=== PATIENT | female | born 1945 | race Caucasian/White ===

== ENCOUNTER 2016-09-25 08:25 | Outpatient (RCR) | payer BC ==
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
[2016-08-11 11:59] LABS: BASOPHILS % (AUTO) 0 % (0-10); EOSINOPHILS # (AUTO) 0.1 10^3/uL (0.0-0.3); EOSINOPHILS % (AUTO) 2 % (0-10); LYMPHOCYTES # (AUTO) 2.7 X 10^3 (1.0-4.0); LYMPHOCYTES % (AUTO) 36 % (12-44); MEAN CORPUSCULAR HEMOGLOBIN 28 PG (25-34); MEAN CORPUSCULAR HGB CONC 33 G/DL (32-36); MEAN CORPUSCULAR VOLUME 85 FL (80-99); MEAN PLATELET VOLUME 9.1 FL (7.4-10.4); MONOCYTES # (AUTO) 0.5 X 10^3 (0.0-1.0); MONOCYTES % (AUTO) 6 % (0-12); NEUTROPHILS # (AUTO) 4.2 X 10^3 (1.8-7.8); NEUTROPHILS % (AUTO) 55 % (42-75); PLATELET COUNT 322 10^3/uL (130-400); RED BLOOD COUNT 4.92 10^6/uL (4.35-5.85); RED CELL DISTRIBUTION WIDTH 14.2 % (10.0-14.5); WHITE BLOOD COUNT 7.5 10^3/uL (4.3-11.0)
[2016-08-11 12:23] LABS: ALANINE AMINOTRANSFERASE 21 U/L (0-55); ALBUMIN 4.1 G/DL (3.2-4.5); ANION GAP 7 MMOL/L (5-14); ASPARTATE AMINO TRANSFERASE 17 U/L (5-34); BILIRUBIN,TOTAL 0.5 MG/DL (0.1-1.0); BLOOD UREA NITROGEN 16 MG/DL (7-18); BUN/CREATININE RATIO 23; CALCIUM 9.7 MG/DL (8.5-10.1); CARBON DIOXIDE 28 MMOL/L (21-32); CHLORIDE 104 MMOL/L (98-107); CREATININE SERUM 0.71 MG/DL (0.60-1.30); GFR ESTIMATED > 60; GLUCOSE 95 MG/DL (70-105); POTASSIUM 3.8 MMOL/L (3.6-5.0); SODIUM 139 MMOL/L (135-145); TOTAL PROTEIN 6.8 G/DL (6.4-8.2)
[2016-08-11 12:42] LABS: THYROID STIMULATING HORMONE 0.67 UIU/ML (0.35-4.94)
[2016-08-13 10:51] LABS: THYROGLOBULIN LEVELC 0.35 ng/mL (1.60-59.90)
[2016-08-15 07:59] LABS: THYROGLOBULIN AUTOANTIBODY PT 0.05 Units (0.00-0.50)
[~2016-09-25 08:25] MED LIST: CALC-694 PO; CLD600T; ENAL10TA PO; ENAL1TAB16 PO; ESTR0.5T PO; ESTR0.5T3 PO; Estrace; HYDR-3454 PO; HYDR-3729 PO; HYDR12.56 PO; LEVE500T6 PO; LEVE500T99 PO; LEVO100T7 PO; MULT-35 PO; MULT1TAB63; VERA240T98 PO; VITA150T PO; VRP240TCR PO
== END 2016-11-09 | disposition home or self-care (01) ==
LOC: ONC 08:25
PROVIDERS: ATTEND Internal Medicine Hematology & Oncology
DX: C73 Malignant neoplasm of thyroid gland (principal); I10 Essential (primary) hypertension; Z79.899 Other long term (current) drug therapy
CPT/HCPCS: 36415; 80053; 84432; 84443; 85025; 86800; 99214

== ENCOUNTER → 2016-10-16 | Outpatient (CLI) | payer BC ==
--- OUTSIDE RECORDS SUMMARY | 2016-10-16 15:39 | XMS REPORT | Continuity of Care Document ---
Author Author [facility] Organization [facility] Address Unknown Phone Unavailable Care Team Providers Care Pathology Secretary/Transcriptionist Name Role Phone OZZY SULLIVAN MD PCP Insurance Providers Payer Name Policy Number Subscriber Name [id number] [employer] [place] 18 Self / Same As Patient Advance Directives Directive Response Recorded Date/Time Advance Directives Yes 02/03/16 12:03pm Health Care Power of Director Of Scout Work No 02/03/16 12:03pm Organ Donor Yes 02/03/16 [...] - 99.5) 01/12/2016 12:42pm Temperature (Calculated Celsius) 36.07994 degrees C (36.4 - 37.5) 01/12/2016 12:42pm [...] 1.00 inches 02/03/2016 12:03pm Height (Calculated Centimeters) 154.891784 cm 02/03/2016 12:03pm Weight (Pounds) 207 pounds 02/03/2016 12:03pm Weight (Ounces) 0.0 oz 02/03/2016 12:03pm Weight (Calculated Grams) 67000.622 gm 02/03/2016 12:03pm Weight (Calculated Kilograms) 93.814449 kilograms 02/03/2016 12:03pm Calculated BMI 34.44 02/03/2016 12:03pm Results Pending Laboratory Results Test Name Collection Date/Time Pending Microbiology Results Procedure Source Collection Date/Time Procedures Procedure Status Date Provider(s) BIOPSY OF THYROID Completed 01/12/16 JANNA JAMIL MD Encounters Encounter Location Arrival/Admit Date Discharge/Depart Date Attending Provider Departed Clinic [facility] 02/04/16 8:58pm 02/05/16 4: 45am TRINO MONREAL Departed Clinic [facility] 02/03/16 11:49am 02/03/16 12: 25pm JUAN MOYA MD Registered Clinic [facility] 01/12/16 12:08pm JUAN MOYA MD
--- NOTE | 2016-10-18 19:18 | Diagnostic Imaging Report ---
Bilateral screening mammogram The current study was also evaluated with a Computer Aided Detection (CAD) system. Indication: Screening. No current complaints stated on the questionnaire. COMPARISON: 10/15/15. FINDINGS: There are scattered fibroglandular densities in both breasts. There is bilateral nodularity in the parenchyma noted similar to prior exams with no new mass, architectural distortion or suspicious cluster of calcification. Benign-appearing calcifications are seen. There is a biopsy clip in the left breast without change. Allowing for technique and positional differences, no suspicious change is seen. IMPRESSION: No significant change. ACR BI-RADS Category 2: Benign findings. Result letter will be mailed to the patient. Note: At least 10% of breast cancer is not imaged by mammography. Dictated by: Dictated on workstation # [id number]
== END ==
LOC: RAD 15:36
PROVIDERS: ATTEND Internal Medicine
DX: Z12.31 Encounter for screening mammogram for malignant neoplasm of breast (principal)
CPT/HCPCS: 77067

== ENCOUNTER → 2016-10-22 | Outpatient (CLI) | payer BC ==
--- OUTSIDE RECORDS SUMMARY | 2016-10-22 14:22 | XMS REPORT | Continuity of Care Document ---
Author Author [facility] Organization [facility] Address Unknown Phone Unavailable Care Team Providers Care Hand Paint Mixer Name Role Phone OZZY SULLIVAN MD PCP Insurance Providers Payer Name Policy Number Subscriber Name [id number] [place] 18 Self / Same As Patient Advance Directives Directive Response Recorded Date/Time Advance Directives Yes 02/03/16 12:03pm Health Care Power of Airframe And Powerplant Mechanic No 02/03/16 12:03pm Organ Donor Yes 02/03/16 [...] - 99.5) 01/12/2016 12:42pm Temperature (Calculated Celsius) 36.93464 degrees C (36.4 - 37.5) 01/12/2016 12:42pm [...] 1.00 inches 02/03/2016 12:03pm Height (Calculated Centimeters) 154.811980 cm 02/03/2016 12:03pm Weight (Pounds) 207 pounds 02/03/2016 12:03pm Weight (Ounces) 0.0 oz 02/03/2016 12:03pm Weight (Calculated Grams) 59458.622 gm 02/03/2016 12:03pm Weight (Calculated Kilograms) 93.925356 kilograms 02/03/2016 12:03pm Calculated BMI 34.44 02/03/2016 12:03pm Results Pending Laboratory Results Test Name Collection Date/Time Pending Microbiology Results Procedure Source Collection Date/Time Procedures Procedure Status Date Provider(s) BIOPSY OF THYROID Completed 01/12/16 JANNA JAMIL MD Encounters Encounter Location Arrival/Admit Date Discharge/Depart Date Attending Provider Departed Clinic [facility] 02/04/16 8:58pm 02/05/16 4: 45am TRINO MONREAL Departed Clinic [facility] 02/03/16 11:49am 02/03/16 12: 25pm JUAN MOYA MD Registered Clinic [facility] 01/12/16 12:08pm JUAN MYOA MD
--- NOTE | 2016-10-22 15:18 | Diagnostic Imaging Report ---
EXAM: WRIST, LEFT, 3 VIEWS OR MORE INDICATION: LEFT WRIST INJURY. COMPARISON: None. FINDINGS: No fracture or malalignment. Soft tissue shadows are unremarkable. IMPRESSION: Negative left wrist radiographs. Dictated by: Dictated on workstation # [id number]
== END ==
LOC: RAD 14:19
PROVIDERS: ATTEND Nurse Practitioner Family
DX: S69.92XA Unspecified injury of left wrist, hand and finger(s), initial encounter (principal); X58.XXXA Exposure to other specified factors, initial encounter; Y99.8 Other external cause status
CPT/HCPCS: 73110

== ENCOUNTER 2017-02-08 09:51 | Outpatient (RCR) | payer BC ==
[2017-01-29 15:51] LABS: BASOPHILS % (AUTO) 0 % (0-10); EOSINOPHILS # (AUTO) 0.2 10^3/uL (0.0-0.3); EOSINOPHILS % (AUTO) 2 % (0-10); LYMPHOCYTES # (AUTO) 2.8 X 10^3 (1.0-4.0); LYMPHOCYTES % (AUTO) 38 % (12-44); MEAN CORPUSCULAR HEMOGLOBIN 28 PG (25-34); MEAN CORPUSCULAR HGB CONC 33 G/DL (32-36); MEAN CORPUSCULAR VOLUME 85 FL (80-99); MEAN PLATELET VOLUME 9.3 FL (7.4-10.4); MONOCYTES # (AUTO) 0.5 X 10^3 (0.0-1.0); MONOCYTES % (AUTO) 6 % (0-12); NEUTROPHILS # (AUTO) 3.8 X 10^3 (1.8-7.8); NEUTROPHILS % (AUTO) 53 % (42-75); PLATELET COUNT 291 10^3/uL (130-400); RED BLOOD COUNT 4.91 10^6/uL (4.35-5.85); RED CELL DISTRIBUTION WIDTH 14.4 % (10.0-14.5); WHITE BLOOD COUNT 7.2 10^3/uL (4.3-11.0)
[2017-01-29 16:14] LABS: ALANINE AMINOTRANSFERASE 20 U/L (0-55); ALBUMIN 3.9 G/DL (3.2-4.5); ANION GAP 8 MMOL/L (5-14); ASPARTATE AMINO TRANSFERASE 17 U/L (5-34); BILIRUBIN,TOTAL 0.3 MG/DL (0.1-1.0); BLOOD UREA NITROGEN 16 MG/DL (7-18); BUN/CREATININE RATIO 20; CALCIUM 9.2 MG/DL (8.5-10.1); CARBON DIOXIDE 30 MMOL/L (21-32); CHLORIDE 104 MMOL/L (98-107); CREATININE SERUM 0.79 MG/DL (0.60-1.30); GFR ESTIMATED > 60; GLUCOSE 88 MG/DL (70-105); POTASSIUM 3.5 MMOL/L (3.6-5.0); SODIUM 142 MMOL/L (135-145); TOTAL PROTEIN 6.7 G/DL (6.4-8.2)
[2017-01-30 08:01] LABS: THYROGLOBULIN LEVELC 0.2 ng/mL (1.60-59.90)
[2017-01-30 13:40] LABS: THYROGLOBULIN AUTOANTIBODY PT 0.05 Units (0.00-0.50)
== END 2017-04-29 | disposition home or self-care (01) ==
LOC: ONC 09:51
PROVIDERS: ATTEND Internal Medicine Hematology & Oncology
DX: C73 Malignant neoplasm of thyroid gland (principal); I10 Essential (primary) hypertension; Z79.899 Other long term (current) drug therapy
CPT/HCPCS: 36415; 80053; 84432; 84443; 85025; 86800; 99213

== ENCOUNTER 2017-08-16 08:41 | Outpatient (RCR) | payer MEDICARE, OTHER ==
[2017-08-09 08:45] LABS: BASOPHILS % (AUTO) 1 % (0-10); EOSINOPHILS # (AUTO) 0.1 10^3/uL (0.0-0.3); EOSINOPHILS % (AUTO) 2 % (0-10); HEMATOCRIT 42 % (35-52); HEMOGLOBIN 13.9 G/DL (11.5-16.0); LYMPHOCYTES # (AUTO) 2.1 X 10^3 (1.0-4.0); LYMPHOCYTES % (AUTO) 37 % (12-44); MEAN CORPUSCULAR HEMOGLOBIN 28 PG (25-34); MEAN CORPUSCULAR HGB CONC 33 G/DL (32-36); MEAN CORPUSCULAR VOLUME 86 FL (80-99); MEAN PLATELET VOLUME 9.1 FL (7.4-10.4); MONOCYTES # (AUTO) 0.3 X 10^3 (0.0-1.0); MONOCYTES % (AUTO) 5 % (0-12); NEUTROPHILS # (AUTO) 3.2 X 10^3 (1.8-7.8); NEUTROPHILS % (AUTO) 56 % (42-75); PLATELET COUNT 327 10^3/uL (130-400); RED CELL DISTRIBUTION WIDTH 14.3 % (10.0-14.5); WHITE BLOOD COUNT 5.7 10^3/uL (4.3-11.0)
[2017-08-09 09:03] LABS: ALANINE AMINOTRANSFERASE 51 U/L (0-55); ALBUMIN 3.8 GM/DL (3.2-4.5); ALKALINE PHOSPHATASE 47 U/L (40-136); BILIRUBIN,TOTAL 0.6 MG/DL (0.1-1.0); BUN/CREATININE RATIO 16; CALCIUM 9.1 MG/DL (8.5-10.1); CARBON DIOXIDE 29 MMOL/L (21-32); CHLORIDE 103 MMOL/L (98-107); CREATININE SERUM 0.79 MG/DL (0.60-1.30); GFR ESTIMATED > 60; GLUCOSE 102 MG/DL (70-105); POTASSIUM 3.3 MMOL/L (3.6-5.0); SODIUM 141 MMOL/L (135-145); TOTAL PROTEIN 6.4 GM/DL (6.4-8.2)
== END 2017-11-07 | disposition home or self-care (01) ==
LOC: ONC 08:41
PROVIDERS: ATTEND Internal Medicine Hematology & Oncology
DX: C73 Malignant neoplasm of thyroid gland (principal); I10 Essential (primary) hypertension; Z79.899 Other long term (current) drug therapy
CPT/HCPCS: 36415; 80053; 84432; 84443; 85025; 86800; 99213

== ENCOUNTER → 2017-10-18 | Outpatient (CLI) | payer MEDICARE, OTHER ==
--- NOTE | 2017-10-18 18:11 | Diagnostic Imaging Report ---
INDICATION: Screening mammogram. COMPARISON: 10/16/2016. EXAMINATION: Digital screening mammography was obtained of bilateral breasts with a Computer Aided Detection (CAD) system and three-dimensional tomosynthesis. FINDINGS: Scattered fibroglandular densities are again seen. Stable tiny microcalcifications are seen in the 3 o'clock position of the left breast. There is a biopsy marker clip present. There has been no interval change. IMPRESSION: Stable screening mammogram. No malignancy. ACR BI-RADS Category 1: Negative. Result letter will be mailed to the patient. Note: At least 10% of breast cancer is not imaged by mammography. Dictated by: Dictated on workstation # [id number]
== END ==
LOC: RAD 07:31
PROVIDERS: ATTEND Internal Medicine
DX: Z12.31 Encounter for screening mammogram for malignant neoplasm of breast (principal)
CPT/HCPCS: 77067

== ENCOUNTER → 2017-10-18 | Outpatient (CLI) | payer MEDICARE, OTHER ==
--- NOTE | 2017-10-18 10:13 | Diagnostic Imaging Report ---
INDICATION: Cough COMPARISON: 05/24/16 FINDINGS: Frontal and lateral views of the chest demonstrate large mass density in the right hemithorax. The left lung is clear. The heart is prominent without pulmonary edema. There is no pneumothorax or large effusion. IMPRESSION: Large mass density right hemithorax. Recommend CT imaging. Dictated by: Dictated on workstation # [id number]
== END ==
LOC: RAD 09:42
PROVIDERS: ATTEND Nurse Practitioner
DX: R05 Cough (principal); R22.2 Localized swelling, mass and lump, trunk
CPT/HCPCS: 71046

== ENCOUNTER → 2017-10-22 | Outpatient (CLI) | payer MEDICARE, OTHER ==
[~2017-10-22] MED LIST changes: +CATHETER FLUSH 10 ML SYR IV PRN; +IOHEXOL 350 MG/ML 100 ML (OMNIPAQUE 350) VIAL IV ONE; +NS 250 ML (IVPB) BAG IV ONE; +RECEIVED CONTRAST (Hold Metformin) IV SCH
[2017-10-22 15:28] LABS: BUN/CREATININE RATIO 24; CREATININE SERUM 0.89 MG/DL (0.60-1.30); GFR ESTIMATED > 60
--- NOTE | 2017-10-22 17:47 | Diagnostic Imaging Report ---
PROCEDURE: CT chest with and without contrast. TECHNIQUE: Multiple contiguous axial images were obtained through the chest before and after administration of intravenous contrast. INDICATION: Abnormal chest x-ray, mass. COMPARISON: Chest radiographs 05/24/2016, 10/18/2017. FINDINGS: There is a large mildly enhancing mass in the right posterior pleural space extending into the posterior mediastinum which in total measures approximately 13.7 x 12.0 x 14.7 cm (LR x AP x SI). There is small area of calcifications along the superior margin of this mass. This results in marked atelectasis of the right lower lobe. This displaces the esophagus towards the left and appears to have some mass effect upon the left atrium. The fat plane between this mass and the adjacent spine appears preserved. There is no mediastinal lymphadenopathy. There are no aggressive changes in the adjacent ribs or thoracic spine. Postoperative findings in the thyroid bed. Vertebroplasty changes in the L1 vertebral body. Cholecystectomy. IMPRESSION: Indeterminate large mass 14.7 cm involving the posterior pleural space on the right and posterior mediastinum. This has developed since the 05/22/2016 examination. This mass would be readily accessible to CT or ultrasound-guided biopsy. Dictated on workstation # [id number]
== END ==
LOC: RAD 14:54
PROVIDERS: ATTEND Nurse Practitioner
DX: R91.8 Other nonspecific abnormal finding of lung field (principal); R05 Cough
CPT/HCPCS: 36415; 71270; 82565; 84520

== ENCOUNTER 2017-11-08 16:29 | Emergency (ER) | payer MEDICARE, OTHER ==
[~2017-11-08] VITALS: Ht 162.6 cm; Wt 90.7 kg
[~2017-11-08 16:29] MED LIST changes: -CATHETER FLUSH 10 ML SYR IV PRN; -IOHEXOL 350 MG/ML 100 ML (OMNIPAQUE 350) VIAL IV ONE; -NS 250 ML (IVPB) BAG IV ONE; -RECEIVED CONTRAST (Hold Metformin) IV SCH
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
[2017-11-08] MEDS ORDERED: RT-ALBUTEROL/IPRATROPIUM 3 ML (DUONEB) VIAL INH ONE (16:45)
[2017-11-08 16:59] LABS: BASOPHILS % (AUTO) 0 % (0-10); EOSINOPHILS # (AUTO) 0.1 10^3/uL (0.0-0.3); EOSINOPHILS % (AUTO) 1 % (0-10); HEMATOCRIT 40 % (35-52); LYMPHOCYTES # (AUTO) 1.8 X 10^3 (1.0-4.0); LYMPHOCYTES % (AUTO) 22 % (12-44); MEAN CORPUSCULAR HEMOGLOBIN 28 PG (25-34); MEAN CORPUSCULAR HGB CONC 33 G/DL (32-36); MEAN CORPUSCULAR VOLUME 85 FL (80-99); MEAN PLATELET VOLUME 9.2 FL (7.4-10.4); MONOCYTES # (AUTO) 0.5 X 10^3 (0.0-1.0); MONOCYTES % (AUTO) 6 % (0-12); NEUTROPHILS % (AUTO) 71 % (42-75); PLATELET COUNT 361 10^3/uL (130-400); RED BLOOD COUNT 4.67 10^6/uL (4.35-5.85); RED CELL DISTRIBUTION WIDTH 14.6 % (10.0-14.5); WHITE BLOOD COUNT 8.5 10^3/uL (4.3-11.0)
--- NOTE | 2017-11-08 17:19 | Diagnostic Imaging Report ---
INDICATION: Shortness of breath. COMPARISON STUDY: Chest from October 26. FINDINGS: A large mass is again seen in the right lower chest. This is better visualized on the CT scan. Adjacent atelectasis has increased. Left lung remains clear. The heart and vascularity are normal. There is no pneumothorax. IMPRESSION: Large right lung mass is stable with increasing adjacent atelectasis. Left lung is clear. Dictated by: Dictated on workstation # [id number]
[2017-11-08 17:21] LABS: ALANINE AMINOTRANSFERASE 38 U/L (0-55); ALBUMIN 3.9 GM/DL (3.2-4.5); ALKALINE PHOSPHATASE 51 U/L (40-136); BILIRUBIN,TOTAL 0.9 MG/DL (0.1-1.0); BUN/CREATININE RATIO 16; CALCIUM 9.1 MG/DL (8.5-10.1); CARBON DIOXIDE 22 MMOL/L (21-32); CHLORIDE 102 MMOL/L (98-107); CREATININE SERUM 0.76 MG/DL (0.60-1.30); GFR ESTIMATED > 60; GLUCOSE 111 MG/DL (70-105); POTASSIUM 3.9 MMOL/L (3.6-5.0); SODIUM 138 MMOL/L (135-145); TOTAL PROTEIN 6.8 GM/DL (6.4-8.2)
--- NOTE | 2017-11-08 17:22 | ED Dyspnea ---
General Stated Complaint: SOB Source of Information: Patient Exam Limitations: No Limitations (ABRAHAN BERMUDEZ MD) History of Present Illness Date Seen by Provider: Nov 08, 2017 Time Seen by Provider: 17:19 Initial Comments The patient is a 72-year-old white female who presents today with complaints of increasing shortness of breath. She relates that a lung mass was discovered and she underwent a percutaneous CT-guided needle biopsy on 10/26. She states that she has been informed that it is malignant however it required more special stains for clear definition. 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 This was submitted for outside review to the [facility] Department of pathology in [place]. She reports that she has had a cough and been short of breath and in fact increasingly short of breath since that biopsy Timing/Duration: Other (2 weeks) (ABRAHAN BERMUDEZ MD) Allergies and Home Medications Allergies Coded Allergies: meperidine (Verified Allergy, Unknown, RECEIVED FENTANYL IN SURGERY, ) PT STATES "DEMEROL MAKES ME DIZZY AND TURNS ME ANDERSON" Uncoded Allergies: TAPE (Allergy, Unknown, 01/18/07) Home Medications Calcium Carbonate/Vitamin D3 1 Each Tablet, 1 TAB PO DAILY, (Reported) Enalapril Maleate 10 Mg Tablet, 10 MG PO DAILY, (Reported) Estradiol 0.5 Mg Tablet, 0.5 MG PO DAILY, (Reported) Hydrochlorothiazide 12.5 Mg Tablet, 12.5 MG PO DAILY, (Reported) Hydrocodone/Acetaminophen 1 Each Tablet, 1 EACH PO Q4H PRN for PAIN Prescribed by: JUAN MOYA on 02/09/161815 Levetiracetam 500 Mg Tablet, 500 MG PO BID, (Reported) Levothyroxine Sodium 100 Mcg Tablet, 100 MCG PO DAILY Prescribed by: JUAN MOYA on 02/09/161816 Multivitamin 1 Each Tablet, 1 TAB PO DAILY, (Reported) Verapamil HCl 240 Mg Tablet.er, 240 MG PO DAILY, (Reported) Vitamin B Complex & Vit C No.4 150 Mg Tablet, 150 MG PO DAILY, (Reported) Patient Home Medication List Home Medication List Reviewed: Yes (AILIN BARNEY) Constitutional: see HPI EENTM: no symptoms reported Respiratory: see HPI, cough, dyspnea on exertion, short of breath Cardiovascular: no symptoms reported Gastrointestinal: no symptoms reported Genitourinary: no symptoms reported Skin: no symptoms reported Psychiatric/Neurological: No Symptoms Reported (ABRAHAN BERMUDEZ MD) Past Lneepik-Wsflbc-Qqhhih Hx Patient Social History 2nd Hand Smoke Exposure: No Recent Foreign Travel: No Contact w/Someone Who Travel: No Recent Hopitalizations: Yes (ABRAHAN BERMUDEZ MD) Immunizations Up To Date Date of Influenza Vaccine: Jun 10, 2015 (ABRAHAN BERMUDEZ MD) Respiratory Respiratory Disorders: Tuberculosis Currently Using CPAP: No Currently Using BIPAP: No (ABRAHAN BERMUDEZ MD) Reproductive System Hx Reproductive Disorders: No (ABRAHAN BERMUDEZ MD) Musculoskeletal Musculoskeletal Disorders: Arthritis, Chronic Back Pain (ABRAHAN BERMUDEZ MD) Family Medical History Significant Family History: Cancer Family Medial History: Arthritis G8 SISTER Kidney disease G8 SISTER Neoplasm 19 FATHER (lung/colon/ liver ca) 19 MOTHER (leukemia) (ABRAHAN BERMUDEZ MD) Family Medial History: Arthritis G8 SISTER Kidney disease G8 SISTER Neoplasm 19 FATHER (lung/colon/ liver ca) 19 MOTHER (leukemia) (AILIN BARNEY) Physical Exam Vital Signs Vital Signs - First Documented 11/08/17 16:35 Temp 98.4 Pulse 75 Resp 16 B/P (MAP) 198/90 (126) Pulse Ox 93 O2 Delivery Nasal Cannula O2 Flow Rate 2.00 (AILIN BARNEY) Vital Signs Capillary Refill : (ABRAHAN BERMUDEZ MD) General Appearance: No Apparent Distress, Other (mild tachypnea at rest) HEENT: Normal ENT Inspection Neck: Normal Inspection Respiratory: Decreased Breath Sounds (distant without wheezes) Cardiovascular: Regular Rate, Rhythm, No Edema, No Gallop, No JVD, No Murmur, Normal Peripheral Pulses Gastrointestinal: Normal Bowel Sounds, No Organomegaly, No Pulsatile Mass, Non Tender Extremity: Normal Capillary Refill, Normal Inspection, Normal Range of Motion, Non Tender, No Calf Tenderness, No Pedal Edema Neurologic/Psychiatric: Alert, Oriented x3, No Motor/Sensory Deficits, Normal Mood/Affect Skin: Normal Color, Warm/Dry Lymphatic: No Adenopathy (ABRAHAN BERMUDEZ MD) Focused Exam Time of Focused Exam: 21:31 Respiratory: Chest Non Tender, No Accessory Muscle Use, Decreased Breath Sounds , Respiratory Distress (mild rest for distress with exertion but at rest she is comfortable and 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.) Cardiovascular: Regular Rate, Rhythm, Normal Peripheral Pulses Capillary Refill: Less Than 3 Seconds Peripheral Pulses: 2+ Radial Pulses (R), 2+ Radial Pulses (L) Skin: normal color, warm/dry (ECTOR,AILIN J) Progress/Results/Core Measures Results/Orders Lab Results Laboratory Tests Test 11/08/17 16:46 11/08/17 18:14 11/08/17 20:15 Range/Units White Blood Count 8.5 4.3-11.0 10^3/uL Red Blood Count 4.67 4.35-5.85 10^6/uL Hemoglobin 13.0 11.5-16.0 G/DL Hematocrit 40 35-52 % Mean Corpuscular Volume 85 80-99 FL Mean Corpuscular Hemoglobin 28 25-34 PG Mean Corpuscular Hemoglobin Concent 33 32-36 G/DL Red Cell Distribution Width 14.6 H 10.0-14.5 % Platelet Count 361 130-400 10^3/uL Mean Platelet Volume 9.2 7.4-10.4 FL Neutrophils (%) (Auto) 71 42-75 % Lymphocytes (%) (Auto) 22 12-44 % Monocytes (%) (Auto) 6 0-12 % Eosinophils (%) (Auto) 1 0-10 % Basophils (%) (Auto) 0 0-10 % Neutrophils # (Auto) 6.0 1.8-7.8 X 10^3 Lymphocytes # (Auto) 1.8 1.0-4.0 X 10^3 Monocytes # (Auto) 0.5 0.0-1.0 X 10^3 Eosinophils # (Auto) 0.1 0.0-0.3 10^3/uL Basophils # (Auto) 0.0 0.0-0.1 10^3/uL Sodium Level 138 135-145 MMOL/L Potassium Level 3.9 3.6-5.0 MMOL/L Chloride Level 102 98-107 MMOL/L Carbon Dioxide Level 22 21-32 MMOL/L Anion Gap 14 5-14 MMOL/L Blood Urea Nitrogen 12 7-18 MG/DL Creatinine 0.76 0.60-1.30 MG/DL Estimat Glomerular Filtration Rate > 60 BUN/Creatinine Ratio 16 Glucose Level 111 H 70-105 MG/DL Calcium Level 9.1 8.5-10.1 MG/DL Total Bilirubin 0.9 0.1-1.0 MG/DL Aspartate Amino Transf (AST/SGOT) 22 5-34 U/L Alanine Aminotransferase (ALT/SGPT) 38 0-55 U/L Alkaline Phosphatase 51 40-136 U/L C-Reactive Protein High Sensitivity 4.17 H 0.00-0.50 MG/DL Total Protein 6.8 6.4-8.2 GM/DL Albumin 3.9 3.2-4.5 GM/DL Urine Color YELLOW Urine Clarity CLEAR Urine pH 5 5-9 Urine Specific [place] 1.020 1.016-1.022 Urine Protein NEGATIVE NEGATIVE Urine Glucose (UA) NEGATIVE NEGATIVE Urine Ketones 3+ H NEGATIVE Urine Nitrite NEGATIVE NEGATIVE Urine Bilirubin NEGATIVE NEGATIVE Urine Urobilinogen NORMAL NORMAL MG/DL Urine Leukocyte Esterase 1+ H NEGATIVE Urine RBC (Auto) NEGATIVE NEGATIVE Urine RBC NONE /HPF Urine WBC 2-5 /HPF Urine Squamous Epithelial Cells 2-5 /HPF Urine Crystals NONE /LPF Urine Bacteria TRACE /HPF Urine Casts NONE /LPF Urine Mucus SMALL H /LPF Urine Culture Indicated NO Blood Gas Puncture Site LT RAD Blood Gas Patient Temperature 99.1 Arterial Blood pH 7.42 7.37-7.43 Arterial Blood Partial Pressure CO2 42 35-45 MMHG Arterial Blood Partial Pressure O2 66 L 79-93 MMHG Arterial Blood HCO3 27 23-27 MMOL/L Arterial Blood Total CO2 27.9 21.0-31.0 MMOL/L Arterial Blood Oxygen Saturation 95 94-100 % Arterial Blood Base Excess 2.5 -2.5-2.5 MMOL/L Sahil Test YES-POS Blood Gas Ventilator Setting NO Blood Gas Inspired Oxygen 2L (AILIN BARNEY) My Orders Orders - AILIN BARNEY Hs C Reactive Protein (11/08/17 18:30) Arterial Blood Gas (11/08/17 20:19) General/Regular (11/08/17 Dinner) (AILIN BARNEY) Medications Given in ED Current Medications Medications Dose Ordered Sig/Tricia Route Start Time Stop Time Status Last Admin Dose Admin Albuterol/ Ipratropium 3 ml ONCE ONCE INH 11/08/17 16:45 11/08/17 16:46 DC 11/08/17 16:47 3 ML (AILIN BARNEY) Vital Signs/I&O Vital Sign - Last 12Hours 11/08/17 11/08/17 11/08/17 16:35 16:47 22:02 Temp 98.4 Pulse 75 88 Resp 16 20 B/P (MAP) 198/90 (126) 123/81 Pulse Ox 93 94 95 O2 Delivery Nasal Cannula Nasal Cannula O2 Flow Rate 2.00 2.00 (AILIN BARNEY) Progress Note : Time: 18:20 Progress Note Met with and obtained the history of and examined the patient and agree with the findings of Dr. Bermudez. Reviewed the CT scan from October 22, 2017 demonstrating a 13 x 12 x 14 cm posterior mediastinal mass. 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 Added a CRP to help us differentiate between an possibility of a postobstructive pneumonia versus mass effect causing her shortness of breath. She is satting from 88-91% on 2 L by nasal cannula just from transferring from the wheelchair to bed. She is actively working harder to breathe. She does wear CPAP at home but does not use oxygen routinely. (AILIN BARNEY) Diagnostic Imaging Diagonstic Imaging: Xray Plain Films/CT/US/NM/MRI: chest Comments VIA [facility]. [place], [place] NAME: JONATHON FONTENOT [facility] REC#: [id number] PT STATUS: REG ER : 1945 PHYSICIAN: DIPIKA SON APRN ADMIT DATE: 11/08/17/ER Draft Date of Exam:11/08/17 CHEST 1 VIEW, AP/PA ONLY INDICATION: Shortness of breath. COMPARISON STUDY: Chest from October 26. FINDINGS: A large mass is again seen in the right lower chest. This is better visualized on the CT scan. Adjacent atelectasis has increased. Left lung remains clear. The heart and vascularity are normal. There is no pneumothorax. IMPRESSION: Large right lung mass is stable with increasing adjacent atelectasis. Left lung is clear. Dictated on workstation # [id number] Dict: 11/08/17 1713 Trans: 11/08/17 1719 [id number] Interpreted by: DEBBIE MARCANO MD Electronically signed by: Reviewed: Reviewed by Me Diagonstic Imaging: CT Plain Films/CT/US/NM/MRI: chest Comments Discussed the very modest fluid collection and the radiologist thinks he might get up to 3 or 400 cc output probably will not make a significant change in her symptoms as the majority of the opacification is from lung mass itself. [facility]. [place], [place] NAME: JONATHON FONTENOT [facility] REC#: [id number] PT STATUS: REG ER : 1945 PHYSICIAN: ABRAHAN BERMUDEZ MD ADMIT DATE: 11/08/17/ER Draft Date of Exam:11/08/17 CT CHEST WO INDICATION: Dry cough with shortness of air since biopsy on October 22. FINDINGS: A large mass in the right pleural space is again identified. There is some increased ascites in the right pleural space. No pericardial effusion or left pleural effusion is present. Atelectasis at the right base is slightly worsened. No other masses are present. No abnormal adenopathy is seen. Heart size is normal. Visualized portions of the abdomen appear unremarkable. IMPRESSION: Stable large right chest mass with mild increase of the ascites and atelectasis. Left lung remains clear. Dictated on workstation # [id number] Dict: 11/08/17 1830 Trans: 11/08/[address] [facility] [id number] Interpreted by: DEBBIE MARCANO MD Electronically signed by: Reviewed: Reviewed by Me, Discussed w/Radiologist (AILIN BARNEY) Consults Consults #1: Consulting Physician: JAI MARRUFO Consults Notes Mode patient is not currently under the good Dr. Durand care he would recommend since we don't have the pathology from the [facility] back yet we should keep her here for the hypoxia potentially consult Dr. Quintero to get the results of the pathology and then from there if she needs CT surgery at transfer to appropriate facility would be done from an inpatient standpoint. 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 She recommends looking at [facility]. (AILIN BARNEY) Transfer of Care Transfer of Care Time: 18:15 Care transferred to: ECTOR (AILIN BARNEY) Departure Impression Impression: Primary Impression: Hypoxia Additional Impressions: Mass of lung Pleural effusion due to another disorder Disposition: ADMITTED INPATIENT Condition: Improved Admissions Decision to Admit Reason: Admit from ER (General) Decision to Admit/Date: Nov 08, 2017 Time/Decision to Admit Time: 19:12 (AILIN BARNEY) Transfer Time Spoke to Accepting Phy: 20:00 Transfer Progress Notes Bobby 1920: Triage coordinator for [facility]. Triage nurse: Janelle Rodrigues, internal medicine will be accepting but would like an ABG report called back prior to getting a bed number. 29/09/29 ABG results called back. We have a bed number already and [facility] is out on a transfer and is expected to be here in about 30 minutes. Transfer Time: 22:02 Transfer Facility: [facility] Method of Transfer: EMS (AILIN BARNEY) Departure-Patient Inst. Referrals: SUMANTH ZHAO MD (PCP/Family) Primary Care Physician ABRAHAN BERMUDEZ MD Nov 08, 2017 17:22 AILIN BARNEY Nov 08, 2017 18:21
[2017-11-08 18:25] LABS: BILIRUBIN,URINE NEGATIVE (NEGATIVE); CLARITY,URINE CLEAR; COLOR,URINE YELLOW; GLUCOSE, URINE (UA) NEGATIVE (NEGATIVE); KETONES,URINE 3+ (NEGATIVE); LEUKOCYTE ESTERASE ,URINE 1+ (NEGATIVE); NITRITE,URINE NEGATIVE (NEGATIVE); PH,URINE 5 (5-9); PROTEIN,URINE NEGATIVE (NEGATIVE); UROBILINOGEN,URINE NORMAL (NORMAL)
[2017-11-08 18:34] LABS: BACTERIA,URINE TRACE /HPF
--- NOTE | 2017-11-08 18:39 | Diagnostic Imaging Report ---
INDICATION: Dry cough with shortness of air since biopsy on October 22. FINDINGS: A large mass in the right pleural space is again identified. There is some increased ascites in the right pleural space. No pericardial effusion or left pleural effusion is present. Atelectasis at the right base is slightly worsened. No other masses are present. No abnormal adenopathy is seen. Heart size is normal. Visualized portions of the abdomen appear unremarkable. IMPRESSION: Stable large right chest mass with mild increase of the ascites and atelectasis. Left lung remains clear. Dictated by: Dictated on workstation # [id number]
[2017-11-08 20:25] LABS: ABG BASE EXCESS 2.5 MMOL/L (-2.5-2.5); ABG OXYGEN SATURATION 95 % (94-100); ABG PCO2 42 MMHG (35-45); ABG PH 7.42 (7.37-7.43); ABG PO2 66 MMHG (79-93); ABG TCO2 27.9 MMOL/L (21.0-31.0)
[2017-11-08 20:26] LABS: ALLENS TEST YES-POS; INSPIRED O2 2L; PATIENT TEMP 99.1; VENTILATOR NO
[2017-11-08 22:02] VITALS: BP 123/81
== END 2017-11-08 22:02 | disposition other institution (70) ==
LOC: EDUNIT# 16:29 → ER 16:30
DX: J90 Pleural effusion, not elsewhere classified (principal); R91.8 Other nonspecific abnormal finding of lung field; R09.02 Hypoxemia; Z88.5 Allergy status to narcotic agent; Z91.048 Other nonmedicinal substance allergy status; Z80.0 Family history of malignant neoplasm of digestive organs; Z80.6 Family history of leukemia
CPT/HCPCS: 36415; 71045; 71250; 80053; 81000; 82805; 85025; 86141; 94640

== ENCOUNTER → 2017-11-21 | Outpatient (CLI) | payer MEDICARE, OTHER ==
[~2017-11-21] VITALS: Ht 162.6 cm; Wt 90.7 kg
[~2017-11-21] MED LIST changes: +OXYC-529 PO
[2017-11-21 14:10] VITALS: BP 137/84
[2017-11-21 15:00] VITALS: BP 129/80
--- NOTE | 2017-11-21 15:10 | Diagnostic Imaging Report ---
INDICATION: Post thoracentesis. EXAMINATION: PA chest erect at 3:17 p.m. FINDINGS: Reportedly, in the interval since the prior exam of 11/08/2017, the patient has undergone thoracentesis on the right. It is my understanding approximately 1600 cc of fluid was removed. On this study, however, the right midlung and right lung base remain opacified by atelectasis/infiltrate and fluid. This appearance is virtually no different than on the prior exam. There is no sign of a pneumothorax on the right. The right apex and left lung are clear. The heart is stable in size. The mediastinum is not widened. The osseous structures are intact. IMPRESSION: There is no is evidence for a pneumothorax on the right following thoracentesis. However, the right midlung and right lung base remain opacified by atelectasis/infiltrate and fluid. A followup study would be recommended for continued evaluation. Dictated by: Dictated on workstation # [id number]
--- NOTE | 2017-11-21 15:28 | Diagnostic Imaging Report ---
Procedure: This is an ultrasound-guided thoracentesis. Indication: Pleural effusion. Ultrasound guidance was provided for Dr. Brandon Fritz during his thoracentesis procedure. A collection of fluid was identified in the right thorax. It is my understanding that 1600 cc of fluid was removed. Impression: There has been a successful ultrasound-guided thoracentesis procedure. Dictated by: Dictated on workstation # [id number]
[2017-11-21 15:33] LABS: TOTAL PROTEIN,BODY FLUID 3.6 G/DL
[2017-11-21 15:55] LABS: BODY FLUID COLOR YELLOW; BODY FLUID SOURCE RIGHT PLEURAL
[2017-11-21 15:56] LABS: BODY FLUID APPEARENCE MOD CLDY; BODY FLUID RBC COUNT 5650 /uL; BODY FLUID WBC TOTAL COUNT 2400 /uL
[2017-11-21 16:02] LABS: BF OTHER CELLS 2 %; LYMPHOCYTES,BODY FLUID 94 %
--- NOTE | 2017-11-22 04:41 | OPERATIVE REPORT ---
DATE OF SERVICE: 11/21/2017 PREOPERATIVE DIAGNOSIS: Right pleural effusion, recurrent. POSTOPERATIVE DIAGNOSIS: Right pleural effusion, recurrent. PROCEDURE: Right chest ultrasound-guided thoracentesis. SURGEON: Jeremiah Fritz DO. ANESTHESIA: Local with 1% lidocaine. ESTIMATED BLOOD LOSS: None. COMPLICATIONS: None. INDICATIONS: The patient is a 72-year-old female with recurrent pleural effusion to the right chest. She had previously had it drained at . She is having increasing shortness of breath. She understands the risks and benefits of the procedure and wished to proceed with procedure. Consent was on chart. DESCRIPTION OF PROCEDURE: The patient was examined using ultrasound demonstrating a large fluid collection of the right chest. The best area for insertion was located with ultrasound and then marked. The area was then prepped and draped in a sterile fashion. Local anesthetic was infiltrated into the area. A #11 blade scalpel was used to make a small skin incision and the safety thoracentesis needle and catheter was inserted until fluid was withdrawn and the catheter was then advanced. The needle was then removed. The fluid was then drained. A total of 1600 mL of a slight strawberry colored clear fluid was withdrawn. Once the fluid was completely drained, the catheter was then removed and a sterile bandage was applied. Chest x-ray is pending. The patient tolerated the procedure well without any complications. Job ID: [id number] DocumentID: [id number] Dictated Date: 11/21/2017 20:00:05 Cake Maker Date: 11/22/2017 04:40:30 Dictated By: JEREMIAH FRITZ DO
== END ==
LOC: RAD 13:59
PROVIDERS: ATTEND Surgery
DX: J90 Pleural effusion, not elsewhere classified (principal); R91.8 Other nonspecific abnormal finding of lung field
CPT/HCPCS: 32555; 71045; 76942; 82570; 82945; 83615; 84157; 87070; 87075; 87205; 88112; 88305; 89051

== ENCOUNTER → 2017-11-22 | Outpatient (CLI) | payer MEDICARE, OTHER ==
[~2017-11-22] MED LIST changes: +CATHETER FLUSH 10 ML SYR IV PRN; +IOHEXOL 350 MG/ML 150 ML (OMNIPAQUE 350) VIAL IV ONE; +NS 250 ML (IVPB) BAG IV ONE; -OXYC-529 PO; +RECEIVED CONTRAST (Hold Metformin) IV SCH
--- NOTE | 2017-11-22 10:43 | Diagnostic Imaging Report ---
PROCEDURE: CT angiography of the chest with contrast. TECHNIQUE: Multiple contiguous axial images were obtained through the chest after uneventful bolus administration of intravenous contrast. Reconstructed CTA MIP acquisitions were also performed. INDICATION: Respiratory distress. The CT chest exam performed on 11/08/2017 without intravenous contrast noted a large mass in the right pleural space as well as a right pleural effusion and associated atelectasis/infiltrate in the right middle lobe. Reportedly the patient did undergo thoracentesis yesterday with removal of approximately 1500 cc of fluid. On this exam there is only a small amount of free fluid still present. Most of the right thorax appears to be occupied by a large mass. This mass measures approximately 13.8 x 15.2 x 15.4 CM. The mass is compressing the right heart border and displacing both the heart and the mediastinum to the left. Also, in the interval since the prior exam a prominent alveolar/interstitial infiltrate has developed throughout much of the right upper lobe. Most likely this is secondary to pneumonia/atelectasis. The left lung is generally clear. The heart itself is stable in size. There is no defect within the pulmonary arteries to indicate a pulmonary embolus although the pulmonary arteries to the right lung are difficult to evaluate due to the compression of the right lung parenchyma by the mass. Aorta is not abnormally dilated and there is no sign of a dissection. There is no discrete mediastinal or hilar adenopathy but the mass has insinuated itself into the superior mediastinum and into the subcarinal space. The thyroid gland is generally unremarkable. The sections through the upper abdomen fail to show any sign of an acute abnormality. There is a 3.6 x 3.6 CM rounded area of low density in the caudate lobe of the liver. This finding is worrisome for metastatic disease. The bone windows show no sign of a fracture or of a destructive lesion. There are post kyphoplasty changes involving L1. IMPRESSION: 1. There is a large mass occupying much of the right thorax and displacing the heart and mediastinum to the left. There is also now a prominent area of pneumonia/atelectasis involving the right upper lobe. There is no sign of a pneumothorax however nor is there any evidence for a pulmonary embolism. 2. The rounded area of low density in the caudate lobe of the liver is worrisome for metastatic disease. 3. These results were discussed with Dr. Quintero. Dictated by: Dictated on workstation # [id number]
== END ==
LOC: RAD 08:31
PROVIDERS: ATTEND Internal Medicine Hematology & Oncology
DX: R22.2 Localized swelling, mass and lump, trunk (principal); R06.03 Acute respiratory distress; R06.02 Shortness of breath
CPT/HCPCS: 71275

== ENCOUNTER → 2017-11-22 | Outpatient (CLI) | payer MEDICARE, OTHER ==
[~2017-11-22] MED LIST changes: -CATHETER FLUSH 10 ML SYR IV PRN; -IOHEXOL 350 MG/ML 150 ML (OMNIPAQUE 350) VIAL IV ONE; -NS 250 ML (IVPB) BAG IV ONE; -RECEIVED CONTRAST (Hold Metformin) IV SCH
== END ==
LOC: CARD 13:29
PROVIDERS: ATTEND Internal Medicine Hematology & Oncology
DX: C34.90 Malignant neoplasm of unspecified part of unspecified bronchus or lung (principal); I42.7 Cardiomyopathy due to drug and external agent; T45.1X5A Adverse effect of antineoplastic and immunosuppressive drugs, initial encounter; I07.1 Rheumatic tricuspid insufficiency
CPT/HCPCS: 93306

== ENCOUNTER 2017-11-26 14:25 | Emergency (ER) | payer MEDICARE, OTHER ==
[~2017-11-26] VITALS: Ht 154.9 cm; Wt 88.9 kg
--- OUTSIDE RECORDS SUMMARY | 2017-11-26 14:31 | XMS REPORT | Continuity of Care Document ---
Author Author [employer] Organization [facility] Address Unknown Phone Unavailable Care Team Providers Care Return To Service Inspector Name Role Phone [employer] Unavailable Unavailable Problems Medications Allergies, Adverse Reactions, Alerts Immunizations Results Vital Signs Encounters Location Location Details Encounter Type Encounter Number Reason For Visit Attending Provider ADM Date DC Date Status Source INPATIENT [id number] ANGELA ERMIAS 11/09/20172017 Active [facility] Sina WHITLEY Active [facility] Procedures Plan of Care Social History Assessment and Plan Family History Advance Directives Functional Status
--- OUTSIDE RECORDS SUMMARY | 2017-11-26 14:32 | XMS REPORT | Clinical Summary ---
Author Author [facility] Organization [facility] Address Unknown Phone Unavailable Care Team Providers Care Health Occupations Instructor Name Role Phone Tad Campbell MD PCP Source Comments Some departments are not documenting in the electronic medical record. If you do not see the information that you expected, contact Release of Information in the Health Information Management department at [phone] for further assistance in locating additional records.[facility] Allergies Active Allergy Reactions Severity Noted Date Comments Meperidine DIZZINESS Low 11/09/2017 Patient states she also turns milan. Current Medications Prescription Sig. Disp. Refills Start End Date Status Date enalapril (VASOTEC) 10 mg Take 10 mg by mouth Active tablet daily. verapamil SR (CALAN-SR) Take 240 mg by mouth Active 240 mg tablet daily. hydroCHLOROthiazide Take 12.5 mg by mouth Active (HYDRODIURIL) 12.5 mg every morning. tablet levothyroxine (SYNTHROID) Take 137 mcg by mouth Active 137 mcg tablet daily 30 minutes before breakfast. vitamins, B complex tab Take 1 tablet by mouth Active daily. vitamins, multiple (DAILY Take 1 tablet by mouth Active MULTI-VITAMIN) tablet daily. calcium carbonate/vitamin Take 1 tablet by mouth Active D-3 (OSCAL-500+D) 1250 daily. Calcium Carb mg/200 unit tablet 1250mg delivers 500mg elemental Ca nystatin (MYCOSTATIN) Apply to affected area 15 g 0 11/18/19 Active 100,000 unit/g topical 18 cream levothyroxine (SYNTHROID) Take 137 mcg by mouth 11/11/19 Discontin 100 mcg tablet daily 30 minutes before 18 ued breakfast. estradiol (ESTRACE) 1 mg Take 0.5 mg by mouth 11/11/19 Discontin tabletIndications: For daily. 18 ued mood changes estradiol (ESTRACE) 0.5 Take 0.5 mg by mouth 11/18/19 Discontin mg tablet daily. 18 ued Active Problems Problem Noted Date Mediastinal mass 11/09/2017 Community acquired pneumonia 11/09/2017 Atelectasis of right lung 11/09/2017 Pleural effusion on right 11/09/2017 Acute hypoxemic respiratory failure (HCC) 11/09/2017 Lung mass 11/08/2017 Overview: Added automatically from request for surgery [id number] Encounters Date Type Specialty Care Team Description 11/14/2017 Procedure Pass 11/14/2017 Surgery Kaushik Whitley MD BRONCHOSCOPY WITH ULTRASOUND 11/13/2017 Anesthesia Hien Ha SRNA Event 11/13/2017 Prep for Case Pulmonology Kaushik Whitley MD Lung mass ( Primary Dx) 11/12/2017 Anesthesia Kaleigh Garcia MD Event 11/12/2017 Procedure Pass 11/12/2017 Surgery Michael Wade MD ESOPHAGOGASTRODUODENOSCOP Y ENDOSCOPIC ULTRASOUND 11/09/2017 Hospital Intensive Care Israel Garcia, Lung mass - Encounter Susana Fulton MD 11/17/2017 Kenya Ramey MD Wilson, Matthew D, MD Zogleman, Brice J, MD Crosser, Michael, MD Simpson, Steven, MD 11/09/2017 Procedure Pass Intensive Care 11/08/2017 Hospital Radiology Encounter 11/08/2017 Hospital Radiology Encounter from Last 3 Months Family History Medical History Relation Name Comments Cancer Father liver Cancer-Colon Father Cancer-Lung Father Blood Disorder Mother leukemia Relation Name Status Comments Father Mother Social History Tobacco Use Types Packs/Day Years Used Date Never Smoker Smokeless Tobacco: Never Used Alcohol Use Drinks/Week oz/Week Comments No Sex Assigned at Date Recorded Not on file Last Filed Vital Signs Vital Sign Reading Time Taken Blood Pressure 142/75 11/17/2017 9:00 AM DAIRY NUTRITION CONSULTANT Pulse 99 11/16/2017 8:00 PM DAIRY NUTRITION CONSULTANT Temperature 36.8 C (98.2 F) 11/17/2017 9:00 AM DAIRY NUTRITION CONSULTANT Respiratory Rate - - Oxygen Saturation 93% 11/17/2017 4:00 PM DAIRY NUTRITION CONSULTANT Inhaled Oxygen - - Concentration Weight 90.4 kg (199 lb 4.7 oz) 11/14/2017 5:33 PM DAIRY NUTRITION CONSULTANT Height 154.9 cm (5' 1") 11/09/2017 12:13 AM DAIRY NUTRITION CONSULTANT Body Mass Index 37.66 11/14/2017 5:33 PM DAIRY NUTRITION CONSULTANT Plan of Treatment Health Maintenance Due Date Last Done Comments HEPATITIS C SCREENING 1945 PHYSICAL (COMPREHENSIVE) 1953 EXAM PERTUSSIS VACCINE 1957 TETANUS VACCINE 1963 BREAST CANCER SCREENING 1986 COLORECTAL CANCER 01/26/1996 SCREENING SHINGLES VACCINE 2006 OSTEOPOROSIS SCREENING 2011 PREVNAR/PNEUMOVAX (#1) 2011 INFLUENZA VACCINE 06/10/2018 Procedures Procedure Name Priority Date/Time Associated Diagnosis Comments PROCEDURE RECORD-SCAN 11/22/2017 Results for this 9:48 AM CDT procedure are in the results section. ECG-SCAN 11/18/2017 Results for this 5:16 PM CDT procedure are in the results section. ECG-SCAN 11/18/2017 Results for this 5:15 PM CDT procedure are in the results section. BRONCHOSCOPY WITH 11/14/2017 Lung mass ULTRASOUND 1:30 PM DAIRY NUTRITION CONSULTANT CONSULT IV THERAPY TEAM STAT 11/14/2017 12:18 PM DAIRY NUTRITION CONSULTANT ESOPHAGOGASTRODUODENOSCOP 11/12/2017 Mediastinal mass Y ENDOSCOPIC ULTRASOUND 5:57 PM DAIRY NUTRITION CONSULTANT CONSULT IV THERAPY TEAM Routine 11/12/2017 9:26 AM DAIRY NUTRITION CONSULTANT CONSULT IV THERAPY TEAM STAT 11/09/2017 5:01 AM DAIRY NUTRITION CONSULTANT from Last 3 Months Results * PROCEDURE RECORD-SCAN (11/22/2017 9:48 AM) Narrative Ordered by an unspecified provider. * ECG-SCAN (11/18/2017 5:16 PM) Narrative Ordered by an unspecified provider. * ECG-SCAN (11/18/2017 5:15 PM) Narrative Ordered by an unspecified provider. * CBC AND DIFF (11/17/2017 3:35 AM) Only the most recent of 10 results within the time period is included. Component Value Ref Range White Blood Cells 6.8 4.5 - 11.0 K/UL RBC 4.21 4.0 - 5.0 M/UL Hemoglobin 11.5 (L) 12.0 - 15.0 GM/DL Hematocrit 36.2 36 - 45 % MCV 85.9 80 - 100 FL MCH 27.4 26 - 34 PG MCHC 31.9 (L) 32.0 - 36.0 G/DL RDW 15.3 (H) 11 - 15 % Platelet Count 381 150 - 400 K/UL MPV 6.4 (L) 7 - 11 FL Neutrophils 63 41 - 77 % Lymphocytes 27 24 - 44 % Monocytes 7 4 - 12 % Eosinophils 2 0 - 5 % Basophils 1 0 - 2 % Absolute Neutrophil Count 4.20 1.8 - 7.0 K/UL Absolute Lymph Count 1.80 1.0 - 4.8 K/UL Absolute Monocyte Count 0.50 0 - 0.80 K/UL Absolute Eosinophil Count 0.10 0 - 0.45 K/UL Absolute Basophil Count 0.10 0 - 0.20 K/UL Specimen Performing Laboratory [facility] [address] [place] [id number] * PHOSPHORUS (11/17/2017 3:35 AM) Only the most recent of 4 results within the time period is included. Component Value Ref Range Phosphorus 3.9 2.0 - 4.0 MG/DL Specimen Performing Laboratory [facility] [address] [place] [address] * MAGNESIUM (11/17/2017 3:35 AM) Only the most recent of 4 results within the time period is included. Component Value Ref Range Magnesium 2.0 1.6 - 2.6 mg/dL Specimen Performing Laboratory [facility] [address] [place] [address] * COMPREHENSIVE METABOLIC PANEL (11/17/2017 3:35 AM) Only the most recent of 10 results within the time period is included. Component Value Ref Range Sodium 138 137 - 147 MMOL/L Potassium 4.1 3.5 - 5.1 MMOL/L Chloride 105 98 - 110 MMOL/L Glucose 109 (H) 70 - 100 MG/DL Blood Urea Nitrogen 24 7 - 25 MG/DL Creatinine 0.76 0.4 - 1.00 MG/DL Calcium 8.9 8.5 - 10.6 MG/DL Total Protein 5.9 (L) 6.0 - 8.0 G/DL Total Bilirubin 0.3 0.3 - 1.2 MG/DL Albumin 3.3 (L) 3.5 - 5.0 G/DL Alk Phosphatase 42 25 - 110 U/L AST (SGOT) 17 7 - 40 U/L CO2 25 21 - 30 MMOL/L ALT (SGPT) 13 7 - 56 U/L Anion Gap 8 3 - 12 eGFR Non >60 >60 mL/min Comment: The eGFR is not validated for use in drug dosing adjustments. Continue to use estimated creatinine clearance per dosing reference text. Please contact the Clinical Pharmacist for questions. eGFR >60 >60 mL/min Comment: The eGFR is not validated for use in drug dosing adjustments. Continue to use estimated creatinine clearance per dosing reference text. Please contact the Clinical Pharmacist for questions. Specimen Performing Laboratory [facility] [address] [place] [address] * PTT (APTT) (11/14/2017 6:12 PM) Component Value Ref Range APTT 27.7 21.0 - 39.0 SEC Specimen Performing Laboratory [facility] [address] [place] [address] * PROTIME INR (PT) (11/14/2017 6:12 PM) Only the most recent of 3 results within the time period is included. Component Value Ref Range INR 1.2 0.8 - 1.2 Specimen Performing Laboratory [facility] [address] [place] [address] * BRONCHOSCOPY (11/14/2017 2:52 PM) Component Value Ref Range Provation Report Patient Name: Jonathon Jay Procedure Date: 11/14/2017 2:52 PM CSN: [id number] Date of : 1945 Gender: Female Attending Physician: Kaushik Whitley MD Procedure: Bronchoscopy Indications: Mediastinal mass Providers: Kaushik Whitley MD (Doctor), Ting Stafford, RN (Nurse), Gloria Day, RN (Nurse), Oscar No, Program Director [employer] (Techn ician) Referring Physician: Leyla Lopez Medications: Tetricaine 0.25%/Epinephrine 0.003% 10 mL nebulizer, Tetric deborah 0.25%/Epinephrine 0.003% topically on airway mucosa 10 mL, General Anesthesia Complications: No immediate complications Findings: Endobronchial ultrasound was used assist with fine needle aspiration and/or characterization of lymph node stations 1R, 1L, 2R, 2L, 4R, 4L, 10R, 10L, 11Rs, 11Ri, 11L and 7. Only the following lymphnode stations were determined to be larger than 5mm on EBUS and/or metabolically active on PET then sampled using EBUS FNA: Lymph Nodes: Lymph node sizing was performed via endobronchial ultrasound. Sampling by transbronchial needle aspiration was also performed using an Olympus EBUS-TBNA 22 gauge needle in the R Hilar Mass and sent for routine cytology. - The R hilar mass node was not measured by EBUS. Five samples with the needle were obtained. Rapid On-Site Evaluation (YANDEL): - R Hilar Mass preliminary cytology was suggestive of malignancy (final results are pending). Suctioning was performed and the airway was cleared. Right Lung Abnormalities: Extrinsic compression was found in the right mainstem bronchus, in the bronchus intermedius, in the right upper lobe, in the right middle lobe and in the right lower lobe. The airway lumen is nearly occluded. The lesion was successfully traversed. Bleeding was induced by the procedure in the right mainstem bronchus, in the bronchus intermedius and in the right lower lobe. Estimated blood loss: 50 mL. The bleeding persisted, requiring intervention. The nasopharynx/oropharynx appears normal. The larynx appears normal. The vocal cords appear normal. The subglottic space is normal. The trachea is of normal caliber. The lars is sharp. The tracheobronchial tree of the left lung was examined to at least the first subsegmental level. Bronchial mucosa and anatomy in the left lung are normal; there are no endobronchial lesions, and no secretions. Impression: - Mediastinal mass - Endobronchial ultrasound was performed. - Lymph node sizing and sampling was performed. Tissue was obtained from this exam. The preliminary diagnosis is highly suspicious for malignancy. - Rapid On-Site Evaluation (YANDEL): Preliminary cytology was suggestive of the following: - R Hilar Mass of malignancy. (Final results are pendin g). - Extrinsic compression was found in the right mainstem bronch us, in the bronchus intermedius, in the right upper lobe, in the right middle lobe and in the right lower lobe secondary to posterior mass effect. - Bleeding was induced by the procedure in the right sandor tem bronchus, in the bronchus intermedius and in the right lower lobe. - The left lung was normal. Estimated Blood Loss: Estimated blood loss: none. Recommendation: - Await test results. Scope In: 3:42:21 PM Scope Out: 4:18:16 PM Attending Participation: I was present and participated during the entire procedure, including non-zapata portions. MD Kaushik Mccoy MD 11/14/2017 4:51 PM The attending physician has electronically signed and finalized this document. Number of Addenda: 0 Note Initiated On: 11/14/2017 2:52 PM Specimen Performing Laboratory [facility] OTHER RESULTS * TYPE & CROSSMATCH (11/14/2017 12:30 PM) Component Value Ref Range Units Ordered 0 Crossmatch Expires 11/17/2017 Record Check 2ND TYPE REQUIRED ABO/RH(D) O POS Antibody Screen NEG Specimen Performing Laboratory [facility] [address] [place] [address] * FINE NEEDLE ASPIRATE (FNA) (11/14/2017 9:04 AM) Component Value Ref Range Cytology [facility] [email or web address] Department of Pathology and Laboratory Medicine [address] [place] [address] Surgical Pathology Office: [phone] CYTOLOGY REPORT NAME: JONATHON JAY SURG PATH #: [id number] MR #: [id number] ALT ID #: [id number] #: [id number] LOCATION: DATE OF PROCEDURE: 11/14/2017 AGE: 72 SEX: F DATE RECEIVED: 11/15/2017 : 1945 TIME RECEIVED: 09:04 PHYSICIAN: KAUSHIK WHITLEY [facility] DATE OF REPORT: 11/16/2017 COPY TO: KENYA RAMEY [facility] MD HERNAN MERCADO MD CROSSER, MICHAEL [facility] DATE OF PRINTIN11/16/2017 Material Received: A: FNA Lung-Right Mainstem History: 72 year old female, history of large mediastinal mass. Gross Description: ( 4 DQ direct smear, 4 Pap direct smear, 1 cell block) Rapid determination of adequacy was performed by the instrument technician, TANNER, on Diff-Quik stained slide(s). Pass one, two and three not adequate for evaluation. Pass four adequate for evaluation. Pass five, six, and seven into RPMI. ################################################## ###################### Final Diagnosis: A. 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 See comment. Please also see concurrent cytology report ([id number]). Comment: Extensive crush artifact is present. Immunohistochemical stains for figueredo-cytokeratin, CAM5.2, CD34, desmin, TTF-1, PAX-8, SOX-10, calretinin, and Ki-67 performed on the cell block are non-contributory due to a lack of lesional tissue. A biopsy/more extensive sampling is recommended for a definitive diagnosis. Pursuant to the Tool Room Supervisor Program at the [facility] Pathology Department, selected slides from this case have been concurrently reviewed by the following pathologist: Dr. Lou Casanova who agrees with the final diagnosis. Attestation: By this signature, I attest that I have personally formulated the final interpretation expressed in this report and that the above diagnosis is based upon my examination of the slides and/or other material indicated in this report. +++Electronically Signed Out By+++ jl/11/16/2017 Interpreted by: KENDALL Lucas MD Fellow Specimen Performing Laboratory [facility] RESULTS * CHEST 2 VIEWS (11/13/2017 7:00 AM) Specimen Performing Laboratory [facility] RAD RESULTS Impressions Increase in size of a right pleural effusion with near complete opacification of the right lung compatible with known pulmonary mass. Approved by Tani Browning M.D. on 11/13/2017 10:50 AM By my electronic signature, I attest that I have personally reviewed the images for this examination and formulated the interpretations and opinions expressed in this report Finalized by Victorina Hightower M.D. on 11/13/2017 11:59 AM. Dictated by Tani Browning M.D. on 11/13/2017 8:59 AM. Narrative Procedure: CHEST 2 VIEWS Clinical Indication: Cough. Dyspnea. Recent right pleural effusion.. Comparison: Chest radiograph November 09, 2017. PET/CT November 2017. FINDINGS: Upright PA and lateral chest radiograph were obtained. Surgical clips overlie the left axilla, lower neck, and upper abdomen. Cement augmentation of L1 again noted. Cardiac silhouette is obscured on the right. No pulmonary venous congestion. Near complete opacification of the right hemithorax compatible with known pulmonary mass with increased size of a right pleural effusion. No visualized pneumothorax. Mild thoracic spondylosis. Procedure Note Interface, Radiant Results - 11/13/2017 12:02 PM DAIRY NUTRITION CONSULTANT Procedure: CHEST 2 VIEWS Clinical Indication: Cough. Dyspnea. Recent right pleural effusion.. Comparison: Chest radiograph November 09, 2017. PET/CT November 2017. FINDINGS: Upright PA and lateral chest radiograph were obtained. Surgical clips overlie the left axilla, lower neck, and upper abdomen. Cement augmentation of L1 again noted. Cardiac silhouette is obscured on the right. No pulmonary venous congestion. Near complete opacification of the right hemithorax compatible with known pulmonary mass with increased size of a right pleural effusion. No visualized pneumothorax. Mild thoracic spondylosis. IMPRESSION Increase in size of a right pleural effusion with near complete opacification of the right lung compatible with known pulmonary mass. Approved by Tani Browning M.D. on 11/13/2017 10:50 AM By my electronic signature, I attest that I have personally reviewed the images for this examination and formulated the interpretations and opinions expressed in this report Finalized by Victorina Hightower M.D. on 11/13/2017 11:59 AM. Dictated by Tani Browning M.D. on 11/13/2017 8:59 AM. * ENDOSCOPIC ULTRASOUND REPORT (11/12/2017 6:12 PM) Component Value Ref Range Provation Report Patient Name: Pierre Garner Procedure Date: 11/12/2017 6:12 PM [facility]: [id number] Date of : 1945 Gender: Female Attending Physician: Michael Wade MD Procedure: Upper EUS Indications: Gorman spected mass in mediastinum on chest CT Providers: Michael Wade MD (Doctor), Truong Burrell MD (Fellow), Miri Hairston (Nurse), Randi Levin, Program Director [employer] (Program Director [employer]) Referring Physician: Referral Self Medications: Mo nitored Anesthesia Care Complications: No immediate complications. Estimated blood loss: Minimal. Procedure: Pre-Anesthesia Assessment: - Prior to the procedure, a History and Physical was performed, and patient medications and allergies were reviewed. The patient's tolerance of previous anesthesia was also reviewed. The risks and benefits of the procedure and the sedation options and risks were discussed with the patient. All questions were answered, and informed consent was obtained. Prior Anticoagulants: The patient has taken no previous anticoagulant or antiplatelet agents. ASA Grade Assessment: III - A patient with severe systemic disease. After reviewing the risks and benefits, the patient was deemed in satisfactory condition to undergo the procedure. After obtaining informed consent, the endoscope was passed under direct vision. Throughout the procedure, the patient's blood pressure, pulse, and oxygen saturations were monitored continuously. The Endosonoscope was introduced through the mouth, and advanced to the second part of duodenum. The upper EUS was accomplished without difficulty. The patient tolerated the procedure well. Findings: Endosonographic Finding : The celiac axis was visualized and no celiac nodes were seen. There was no sign of significant endosonographic abnormality in the left lobe of the liver. The left adrenal appeared normal. There was no sign of significant endosonographic abnormality in the entire pancreas. The pancreatic duct measured up to 2.2 mm in diameter. Endosonographic imaging in the entire pancreas showed no chronic pancreatitis and no pancreas divisum. The ampulla was normal appearing. There was no sign of significant endosonographic abnormality in the common bile duct. The maximum diameter of the duct was 4.7 mm. One lesion was found in the mediastinum with the ultrasound probe positioned 25 to 31 cm from the incisors. This lesion was hypoechoic. It measured 50 mm by 27 mm in maximal cross-sectional diameter. The mediastinal lesion did not involve the esophagus or the aorta. Fluid was seen surrounding the inferior aspect of the lesion. Impression: - The celiac axis was visualized and no celiac nodes were seen. - There was no evidence of significant pathology in the left lobe of the liver. - There was no sign of significant pathology in the entire pancreas. - The ampulla was normal appearing. - There was no sign of significant pathology in the common bile duct. - One hypoechoic lesion was found in the mediastinum. - The mediastinal lesion did not involve the esophagus or the aorta. Fluid was seen surrounding the inferior aspect of the lesion. - No specimens collected. Estimated Blood Loss: Estimated blood loss was minimal. Recommendation: - Patient has a contact number available for emergencies. The signs and symptoms of potential delayed complications were discussed with the patient. Return to normal activities tomorrow. Written discharge instructions were provided to the patient. Scope In: 6:29:38 PM Scope Out: 6:42:01 PM Total Procedure Duration Time 0 hours 12 minutes 23 seconds Procedure Code(s): --- Professional --- 21256, Esophagogastroduodenoscopy, flexible, transoral; with endoscopic ultrasound examination, including the esophagus, stomach, and either the duodenum or a surgically altered stomach where the jejunum is examined distal to the anastomosis Diagnosis Code(s): --- Professional --- J98.59, Other diseases of mediastinum, not elsewhere classified R93.8, Abnormal findings on diagnostic imaging of other specified body structures CPT copyright 2016 [employer]. All rights reserved. The codes documented in this report are preliminary and upon bill cutter review may be revised to meet current compliance requirements. Attending Participation: I was present and participated during the entire procedure, including non-zapata portions. MD Michael Kumar MD 11/12/2017 8:27 PM The attending physician has electronically signed and finalized this document. MD Michael Kumar MD 11/12/2017 8:27 PM Number of Addenda: 0 Note Initiated On: 11/12/2017 6:12 PM Specimen Performing Laboratory [facility] OTHER RESULTS * NON-ENTOMOLOGY TEACHER CYTOLOGY (BODY FLUIDS/TISSUE) (11/09/2017 2:22 PM) Component Value Ref Range Cytology [facility] [email or web address] Department of Pathology and Laboratory Medicine [address] [place] [address] Surgical Pathology Office: [phone] CYTOLOGY REPORT NAME: JONATHON JAY CYTOLOGY #: [id number] MR #: [id number] ALT ID #: BILLING #: [id number] LOCATION: 63 DATE OF PROCEDURE: 11/09/2017 AGE: 72 SEX: F DATE RECEIVED: 11/09/2017 : 1945 TIME RECEIVED: 14:22 PHYSICIAN: SUSANA WOO MD DATE OF REPORT: 11/16/2017 COPY TO: KENYA RAMEY DATE OF PRINTIN11/16/2017 Material Received: A: Pleural Fluid-Right History: 72 year-old female with a history of a posterior mediastinal mass and pleural effusion. Gross Description: ( 1 ThinPrep, 1 DQ direct smear, 1 cell block) 700ml turbid orange fluid ################################################## ###################### Final Diagnosis: A. Pleural Fluid-Right: Negative for carcinoma. See comment. Comment: Immunohistochemical stains for calretinin and WT-1 stain the numerous mesothelial cells present; stains for Lino-EP4, MOC-31 and TTF-1 are negative, supporting the above diagnosis. Attestation: By this signature, I attest that I have personally formulated the final interpretation expressed in this report and that the above diagnosis is based upon my examination of the slides and/or other material indicated in this report. +++Electronically Signed Out By+++ ik/11/12/2017 Interpreted by: KENDALL Lucas MD Resident Specimen Performing Laboratory [facility] RESULTS * NM PET SCAN TORSO (SKULL-THIGHS) (11/09/2017 1:14 PM) Specimen Performing Laboratory [facility] RAD RESULTS Impressions 1.Large hypermetabolic mass occupying the majority of the right hemithorax compatible with biopsy proven neoplasm. 2.Mild FDG uptake within the right pleural effusion suspicious for malignant effusion. Approved by Tani Hernandez M.D. on 11/09/2017 4:05 PM By my electronic signature, I attest that I have personally reviewed the images for this examination and formulated the interpretations and opinions expressed in this report Finalized by Navdeep Cheatham M.D. on 11/09/2017 5:38 PM. Dictated by Tani Hernandez M.D. on 11/09/2017 1:47 PM. Narrative PET/CT NECK, CHEST, ABDOMEN AND PELVIS CLINICAL HISTORY: 72-year-old female with posterior mediastinal mass, previous biopsy showing atypical spindle cell neoplasm, history of thyroid cancer status post thyroidectomy in 2016. RADIOPHARMACEUTICAL:16.5 mCi F-18 Fluorodeoxyglucose (FDG) IV. TECHNIQUE: Beginning approximately 62 minutes after tracer administration, routine whole body PET/CT imaging was performed from the level of the base of the skull to the upper thighs. PET images were reviewed in standard orthogonal projections. Low dose non-contrast CT imaging was performed for attenuation correction and localization purposes. BLOOD GLUCOSE LEVEL AT THE TIME OF RADIOPHARMACEUTICAL ADMINISTRATION:116 mg /dl COMPARISON: None FINDINGS: Current SUV: Mean hepatic: 2.2 Max hepatic: 3.8 Head/Neck: No suspicious lesions are identified in this region. Chest: Hypermetabolic mass occupying the majority of the right hemithorax demonstrates a maximum SUV of 7.8 (index -331, CT image 107). Mild FDG uptake associated with the right pleural effusion with maximum SUV of 3.77 (index -432 , CT image 138). No discrete metabolically active lymphadenopathy. Abdomen/Pelvis: No suspicious hypermetabolic lesions are seen within the abdomen or pelvis. Physiological activity is noted within the kidneys and bladder. Osseous Structures: No suspicious hypermetabolic osseous lesions are seen. Additional significant low dose CT findings: Large mass occupying the right hemithorax with moderate right pleural effusion. Lung consolidation is present adjacent to the mass anteriorly. Redemonstration of leftward mediastinal shift. Bilateral peripelvic cysts. Prior cholecystectomy. Trace pelvic ascites. Marked distal colonic diverticulosis. Uncorrected PET images:Uncorrected PET images demonstrate no additional abnormality. Procedure Note Interface, Radiant Results - 11/09/2017 5:41 PM DAIRY NUTRITION CONSULTANT PET/CT NECK, CHEST, ABDOMEN AND PELVIS CLINICAL HISTORY: 72-year-old female with posterior mediastinal mass, previous biopsy showing atypical spindle cell neoplasm, history of thyroid cancer status post thyroidectomy in 2016. RADIOPHARMACEUTICAL: 16.5 mCi F-18 Fluorodeoxyglucose (FDG) IV. TECHNIQUE: Beginning approximately 62 minutes after tracer administration, routine whole body PET/CT imaging was performed from the level of the base of the skull to the upper thighs. PET images were reviewed in standard orthogonal projections. Low dose non-contrast CT imaging was performed for attenuation correction and localization purposes. BLOOD GLUCOSE LEVEL AT THE TIME OF RADIOPHARMACEUTICAL ADMINISTRATION: 116 mg/ dl COMPARISON: None FINDINGS: Current SUV: Mean hepatic: 2.2 Max hepatic: 3.8 Head/Neck: No suspicious lesions are identified in this region. Chest: Hypermetabolic mass occupying the majority of the right hemithorax demonstrates a maximum SUV of 7.8 (index -331, CT image 107). Mild FDG uptake associated with the right pleural effusion with maximum SUV of 3.77 (index -432 , CT image 138). No discrete metabolically active lymphadenopathy. Abdomen/Pelvis: No suspicious hypermetabolic lesions are seen within the abdomen or pelvis. Physiological activity is noted within the kidneys and bladder. Osseous Structures: No suspicious hypermetabolic osseous lesions are seen. Additional significant low dose CT findings: Large mass occupying the right hemithorax with moderate right pleural effusion. Lung consolidation is present adjacent to the mass anteriorly. Redemonstration of leftward mediastinal shift. Bilateral peripelvic cysts. Prior cholecystectomy. Trace pelvic ascites. Marked distal colonic diverticulosis. Uncorrected PET images: Uncorrected PET images demonstrate no additional abnormality. IMPRESSION 1. Large hypermetabolic mass occupying the majority of the right hemithorax compatible with biopsy proven neoplasm. 2. Mild FDG uptake within the right pleural effusion suspicious for malignant effusion. Approved by Tani Hernandez M.D. on 11/09/2017 4:05 PM By my electronic signature, I attest that I have personally reviewed the images for this examination and formulated the interpretations and opinions expressed in this report Finalized by Navdeep Cheatham M.D. on 11/09/2017 5:38 PM. Dictated by Tani Hernandez M.D. on 11/09/2017 1:47 PM. * IR ASPIRATION/DRAIN (11/09/2017 12:10 PM) Specimen Performing Laboratory [facility] RAD RESULTS Impressions 1. Successful ultrasound guided thoracentesis with removal of 800 mL fluid. Samples provided for laboratory evaluation. Approved by Amadou Zeng M.D. on 11/09/2017 12:39 PM By my electronic signature, I attest that I have personally reviewed the images for this examination and formulated the interpretations and opinions expressed in this report Finalized by Angel Bejarano M.D. on 11/12/2017 10:36 AM. Dictated by Amadou Zeng M.D. on 11/09/2017 12:38 PM. Narrative Ultrasound-guided Thoracentesis CLINICAL INDICATION: Symptomatic pleural effusion MEDICATIONS: 5 mL subcutaneous 2% lidocaine BLOCK MAKING MACHINE OPERATOR: Matthew Bejarano M.D., Amadou Zeng M.D. The risks, benefits, and alternatives to the procedure and sedation were explained, and written informed consent obtained. Ultrasound was used to locate the largest pocket of intrapleural fluid in the right hemithorax. The skin overlying the site was marked, and then prepped and draped in sterile fashion. The site was anesthetized with local injection of 2% lidocaine. A small bore thoracentesis needle and catheter were inserted into the posterior chest at the marked site, and after several mL of pleural fluid were withdrawn, the catheter was inserted and needle withdrawn. A total of 800 mL of pleural fluid was drained.The catheter was removed and an occlusive, sterile dressing was applied.The patient tolerated the procedure well and there were no immediate complications. Patient was discharged to the recovery area in stable condition. Immediate and 1 hour follow up chest radiographs were ordered. FINDINGS:Free intrathoracic fluid demonstrated on ultrasound. Procedure Note Interface, Radiant Results - 11/12/2017 10:39 AM DAIRY NUTRITION CONSULTANT Ultrasound-guided Thoracentesis CLINICAL INDICATION: Symptomatic pleural effusion MEDICATIONS: 5 mL subcutaneous 2% lidocaine BLOCK MAKING MACHINE OPERATOR: Matthew Bejarano M.D., Amadou Zeng M.D. The risks, benefits, and alternatives to the procedure and sedation were explained, and written informed consent obtained. Ultrasound was used to locate the largest pocket of intrapleural fluid in the right hemithorax. The skin overlying the site was marked, and then prepped and draped in sterile fashion. The site was anesthetized with local injection of 2% lidocaine. A small bore thoracentesis needle and catheter were inserted into the posterior chest at the marked site, and after several mL of pleural fluid were withdrawn, the catheter was inserted and needle withdrawn. A total of 800 mL of pleural fluid was drained. The catheter was removed and an occlusive, sterile dressing was applied. The patient tolerated the procedure well and there were no immediate complications. Patient was discharged to the recovery area in stable condition. Immediate and 1 hour follow up chest radiographs were ordered. FINDINGS: Free intrathoracic fluid demonstrated on ultrasound. IMPRESSION 1. Successful ultrasound guided thoracentesis with removal of 800 mL fluid. Samples provided for laboratory evaluation. Approved by Amadou Zeng M.D. on 11/09/2017 12:39 PM By my electronic signature, I attest that I have personally reviewed the images for this examination and formulated the interpretations and opinions expressed in this report Finalized by Angel Bejarano M.D. on 11/12/2017 10:36 AM. Dictated by Amadou Zeng M.D. on 11/09/2017 12:38 PM. * CHEST X-RAY INSPIRATION/EXPIRATION (11/09/2017 11:53 AM) Specimen Performing Laboratory [facility] RAD RESULTS Impressions 1. No significant change in opacification of the right mid and lower lung corona compatible with known pulmonary mass and pleural effusion. No appreciable pneumothorax. Finalized by ALISSON FORD M.D. on 11/09/2017 12:24 PM. Dictated by ALISSON FORD M.D. on 11/09/2017 12:22 PM. Narrative Chest, single view with inspiration and expiration views. Clinical history: 1 hour post right thoracentesis. Comparison: Chest x-ray earlier the same day. Findings: Heart size remains within normal limits. Pulmonary vasculature is grossly unremarkable. No significant change in opacification of the right mid and lower lung corona compatible with known pulmonary mass and pleural effusion. No appreciable pneumothorax. Left lung is relatively clear. Surgical clips overlie the lower neck and left axilla. Procedure Note Interface, Radiant Results - 11/09/2017 12:28 PM DAIRY NUTRITION CONSULTANT Chest, single view with inspiration and expiration views. Clinical history: 1 hour post right thoracentesis. Comparison: Chest x-ray earlier the same day. Findings: Heart size remains within normal limits. Pulmonary vasculature is grossly unremarkable. No significant change in opacification of the right mid and lower lung corona compatible with known pulmonary mass and pleural effusion. No appreciable pneumothorax. Left lung is relatively clear. Surgical clips overlie the lower neck and left axilla. IMPRESSION 1. No significant change in opacification of the right mid and lower lung corona compatible with known pulmonary mass and pleural effusion. No appreciable pneumothorax. Finalized by ALISSON FORD M.D. on 11/09/2017 12:24 PM. Dictated by ALISSON FORD M.D. on 11/09/2017 12:22 PM. * CHEST IMMEDIATE POST PROCEDURE INSP/EXP (11/09/2017 10:59 AM) Specimen Performing Laboratory [facility] RAD RESULTS Impressions 1.Unchanged dense opacification of the mid and right lower lung which is likely a combination of right lung mass and pleural effusion. 2.No pneumothorax Approved by Javier Gonzalez M.D. on 11/09/2017 1:11 PM By my electronic signature, I attest that I have personally reviewed the images for this examination and formulated the interpretations and opinions expressed in this report Finalized by ALISSON FORD M.D. on 11/09/2017 5:44 PM. Dictated by Javier Gonzalez M.D. on 11/09/2017 11:01 AM. Narrative CHEST IMMEDIATE POST PROCEDURE INSP/EXP Clinical Indication:Female, 72 years old. Status post thoracentesis. Comparison: Chest x-ray November 08, 2017. Findings: Surgical clips overlying the neck appear Heart size and pulmonary vasculature are within normal limits. No pneumothorax. Dense opacification of the mid and right lower lung. Left lung is clear. Procedure Note Interface, Radiant Results - 11/09/2017 5:47 PM DAIRY NUTRITION CONSULTANT CHEST IMMEDIATE POST PROCEDURE INSP/EXP Clinical Indication: Female, 72 years old. Status post thoracentesis. Comparison: Chest x-ray November 08, 2017. Findings: Surgical clips overlying the neck appear Heart size and pulmonary vasculature are within normal limits. No pneumothorax. Dense opacification of the mid and right lower lung. Left lung is clear. IMPRESSION 1. Unchanged dense opacification of the mid and right lower lung which is likely a combination of right lung mass and pleural effusion. 2. No pneumothorax Approved by Javier Gonzalez M.D. on 11/09/2017 1:11 PM By my electronic signature, I attest that I have personally reviewed the images for this examination and formulated the interpretations and opinions expressed in this report Finalized by ALISSON FORD M.D. on 11/09/2017 5:44 PM. Dictated by Javier Gonzalez M.D. on 11/09/2017 11:01 AM. * PLEURAL FLUID TOTAL PROTEIN (11/09/2017 10:36 AM) Component Value Ref Range Pleural Fluid Total 3.6 (H)Comment: Serum to pleural fluid protein <1.1 g/ dL Protein gradient >3.1 g/dL is suggestive of an exudate Specimen Performing Laboratory Pleural fluid - [facility] Thoracentesis Fluid [address] [place] [address] * PLEURAL FLUID PH (11/09/2017 10:36 AM) Component Value Ref Range Pleural Fluid Ph 7.45 (L) 7.60 - 7.66 Specimen Performing Laboratory Pleural fluid - [facility] Thoracentesis Fluid [address] [place] [address] * PLEURAL FLUID LACTATE DEHYDROGENASE (11/09/2017 10:36 AM) Component Value Ref Range Pleural Fluid Lactate 398 (H)Comment: Higher levels suggestive of 67 - 140 U/L Dehydrogenase exudate Specimen Performing Laboratory Pleural fluid - [facility] Thoracentesis Fluid [address] [place] [address] * PLEURAL FLUID GLUCOSE (11/09/2017 10:36 AM) Component Value Ref Range Pleural Fluid Glucose 102 (H) 70 - 100 mg/dL Comment: Glucose <60 mg/dL associated with parapneumonic effusion, tuberculosis, malignancy, empyema, and rheumatoid disease Specimen Performing Laboratory Pleural fluid - [facility] Thoracentesis Fluid [address] [place] [address] * PLEURAL FLUID ALBUMIN (11/09/2017 10:36 AM) Component Value Ref Range Pleural Fluid Albumin 2.4Comment: Pleural fluid albumin gradient >1.2 g/ dL g/dL is suggestive of an exudate Specimen Performing Laboratory Pleural fluid - [facility] Thoracentesis Fluid [address] [place] [address] * GRAM STAIN (11/09/2017 10:36 AM) Component Value Ref Range Battery Name GRAM STAIN Specimen Description THORACENTESIS FLUID Special Requests NONE Gram Stain FEW NEUTROPHILS NO ORGANISMS SEEN Report Status FINAL 11/09/2017 Specimen Performing Laboratory Thoracentesis Fluid [facility] [address] [place] [address] * CULTURE-WOUND/TISSUE/FLUID(AEROBIC ONLY)W/SENSITIVITY (11/09/2017 10:36 AM) Component Value Ref Range Battery Name ROUTINE CULTURE Specimen Description THORACENTESIS FLUID Special Requests NONE Direct Gram Stain FEW NEUTROPHILS NO ORGANISMS SEEN Culture NO GROWTH 5 DAYS Report Status FINAL 11/14/2017 Specimen Performing Laboratory Pleural fluid - [facility] Thoracentesis Fluid [address] [place] [address] * CULTURE-ANAEROBIC (11/09/2017 10:36 AM) Component Value Ref Range Battery Name ANAEROBE CULTURE Specimen Description THORACENTESIS FLUID Special Requests NONE Culture NO ANAEROBES ISOLATED Report Status FINAL 11/14/2017 Specimen Performing Laboratory Pleural fluid - [facility] Thoracentesis Fluid [address] [place] [address] * CELL COUNT W/DIFF-FLUIDS (11/09/2017 10:36 AM) Component Value Ref Range White Blood Cells,Fluid 1,670 /UL Red Blood Cells,Fluid 2,460 /UL Segmented Neutrophils, 11 % Fluid Lymphocytes,Fluid 76 % Monocyte/Histo,Fluid 13 % Fluid Source THORACENTESIS FLUID Pathology CHRONIC INFLAMMATION Interpretation,Fluid HEMORRHAGIC FLUID Pathologist Signature INTERPRETED BY OCTAVIA MAZARIEGOS M.D. By the PATH SIGNATURE ABOVE, I attest that I have personally formulated the final interpretation expressed in this report and that the above diagnosis is based upon my examination of the slides and/or other material indicated in this report. Specimen Performing Laboratory Pleural fluid - [facility] Thoracentesis Fluid [address] [place] [address] * STREPTOCOCCUS PNEUMO AG, URINE (11/09/2017 7:22 AM) Component Value Ref Range Battery Name STREP PNEUMO AG, UR Specimen Description URINE Special Requests NONE Antigen NEGATIVE Report Status FINAL 11/09/2017 Specimen Performing Laboratory Urine [facility] [address] [place] [address] * LEGIONELLA ANTIGEN URINE,RAN (11/09/2017 7:22 AM) Component Value Ref Range Battery Name LEGIONELLA URINE ANTIGEN Specimen Description URINE Special Requests NONE Antigen NEGATIVE Report Status FINAL 11/09/2017 Specimen Performing Laboratory Urine [facility] [address] [place] [address] * RVP VIRAL PANEL PCR (11/09/2017 3:05 AM) Component Value Ref Range Specimen Source NASAL WASH Adenovirus NOT DETECTED Coronavirus 229E NOT DETECTED Coronavirus HKU1 NOT DETECTED Coronavirus NL63 NOT DETECTED Coronavirus OC43 NOT DETECTED Human Metapneumovirus NOT DETECTED Human NOT DETECTED Rhinovirus/ENTEROVIRUS Influenza A H1N1 2009 NOT DETECTED Influenza A H1 NOT DETECTED Influenza A H3 NOT DETECTED Influenza B NOT DETECTED Parainfluenza 1 NOT DETECTED Parainfluenza 2 NOT DETECTED Parainfluenza 3 NOT DETECTED Parainfluenza 4 NOT DETECTED RSV NOT DETECTED Bordetella Pertussis NOT DETECTED Chlamydophila Pneumoniae NOT DETECTED Mycoplasma Pneumoniae NOT DETECTED Specimen Performing Laboratory Nasopharyngeal Swab [facility] [address] [place] [address] * TSH WITH FREE T4 REFLEX (11/09/2017 2:55 AM) Component Value Ref Range TSH 1.008 0.35 - 5.00 MCU/ML Specimen Performing Laboratory Blood [facility] [address] [place] [address] * CULTURE-BLOOD W/SENSITIVITY (11/09/2017 2:55 AM) Only the most recent of 2 results within the time period is included. Component Value Ref Range Battery Name BLOOD CULTURE Specimen Description BLOOD RIGHT FA Special Requests NONE Culture NO GROWTH 5 DAYS Report Status FINAL 11/15/2017 Specimen Performing Laboratory Blood [facility] [address] [place] [address] * TROPONIN-I (11/09/2017 2:55 AM) Component Value Ref Range Troponin-I 0.01 0.0 - 0.05 NG/ML Specimen Performing Laboratory Blood [facility] [address] [place] [address] * BNP (B-TYPE NATRIURETIC PEPTI) (11/09/2017 2:55 AM) Component Value Ref Range B Type Natriuretic 28.0 0 - 100 PG/ML Peptide Specimen Performing Laboratory Blood [facility]IN LAB [address] [place] [address] * GENERAL RAD CHEST EXTERNAL IMAGING (11/08/2017 5:05 PM) Narrative This order has been auto finalized and does not contain a result. * CT CHEST EXTERNAL IMAGING (11/08/2017) Narrative This order has been auto finalized and does not contain a result. from Last 3 Months
--- OUTSIDE RECORDS SUMMARY | 2017-11-26 14:34 | XMS REPORT | Encounter Summary ---
Author Author [facility] Organization [facility] Address Unknown Phone Unavailable Care Team Providers Care [employer]aste[employer] Operator Name Role Phone Tad Campbell MD PCP Encounter Details Date Type Department Care Team Description 11/14/2017 Procedure Pass Gastrointenstinal Endoscopy [address] [place] [address] Social History Tobacco Use Types Packs/Day Years Used Date Never Smoker Smokeless Tobacco: Never Used Alcohol Use Drinks/Week oz/Week Comments No Sex Assigned at Date Recorded Not on file as of this encounter Functional Status Functional Status Response Date of Assessment Does the patient have a hearing impairment: No 11/09/2017 as of this encounter Plan of Treatment Not on fileas of this encounter Visit Diagnoses Not on filein this encounter
--- OUTSIDE RECORDS SUMMARY | 2017-11-26 14:34 | XMS REPORT | Encounter Summary ---
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 mass Encounter Details Date Type Department Care Team Description 11/09/[address] Israel Garcia DO Lung mass - Encounter [address] 11/17/2017 [place] [address] [place] [address] [phone] H Susana Cook MD [address] [place] [address] [phone] P Kenya murray MD [address] [place] [address] [phone] Kane Drake MD [address] [place] [address] [phone] Harley Kramer MD [address] [place] [address] [phone] Tani Mcclellan MD [address] [place] [address] [phone] S Angela carvalho MD [address] [place] [address] [phone] Social History Tobacco Use Types Packs/Day Years Used Date Never Smoker Smokeless Tobacco: Never Used Alcohol Use Drinks/Week oz/Week Comments No Sex Assigned at Date Recorded Not on file as of this encounter Last Filed Vital Signs Vital Sign Reading Time Taken Blood Pressure 142/75 11/17/2017 9:00 AM SENIOR INTERNET SALES CONSULTANT Pulse 99 11/16/2017 8:00 PM SENIOR INTERNET SALES CONSULTANT Temperature 36.8 C (98.2 F) 11/17/2017 9:00 AM SENIOR INTERNET SALES CONSULTANT Respiratory Rate - - Oxygen Saturation 93% 11/17/2017 4:00 PM SENIOR INTERNET SALES CONSULTANT Inhaled Oxygen - - Concentration Weight 90.4 kg (199 lb 4.7 oz) 11/14/2017 5:33 PM SENIOR INTERNET SALES CONSULTANT Height 154.9 cm (5' 1") 11/09/2017 12:13 AM SENIOR INTERNET SALES CONSULTANT Body Mass Index 37.66 11/14/2017 5:33 PM SENIOR INTERNET SALES CONSULTANT in this encounter Functional Status Functional Status Response Date of Assessment Does the patient have a hearing impairment: No 11/09/2017 as of this encounter Discharge Summaries * Amadou Encarnacion MD - 11/17/2017 2:07 PM SENIOR INTERNET SALES CONSULTANT Formatting of this note may be different from the original. Physician Discharge Summary Name: Jonathon Jay Date Of : 1945 Age: 72 years Admit date: 11/09/2017 Discharge date: 11/17/2017 Attending Physician: Dr. Angela Monson Service: Med ICU 1 - 0406 Physician Summary completed by: Amadou Encarnacion MD Reason for hospitalization: Acute hypoxic respiratory failure Significant PMH: Past Medical History: Diagnosis Date HTN (hypertension) Mediastinal mass 10/26/2017 INNA (obstructive sleep apnea) TB (tuberculosis) as a toddler, treated at that time Thyroid cancer (HCC) 2016 Allergies: Demerol [meperidine] Admission Physical Exam notable for: Alert and oriented female. Head normocephalic and atraumatic. Lungs with decreased breath sounds on the right with no crackles or wheezes. Heart regular rate and rhythm. Abdomen soft and non tender. Neurologically grossly intact. Admission Lab/Radiology studies notable for: CBC and CMP unremarkable. TSH wnl. Blood cultures negative. BNP and trop not elevated. CT chest shows right sided pleural effusion. Brief Hospital Course: Patient is a 72 yo female with history of HTN, INNA, thyroid cancer s/p thyroidectomy in '16, posterior mediastinal/pleural mass. 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 Outside hospital CT showed significant CT chest with pleural effusion. She transferred to [facility] for CTS consultation. She underwent a thoracentesis which removed 800 ml. Oncology was consulted for recommendations of treatment for the mediastinal mass. She underwent esophageal ultrasound on 11/12 and showed no involvement of the esophagus or aorta. Pulmonary was consulted and she underwent EBUS on 11/14 for biopsy for tissue diagnosis. Cytology return and oncology stated the patient should follow up as an outpatient for follow up and treatment options. Oncology has an appointment scheduled for 11/21. There was concern for the patient's respiratory status. She was able to walk around the unit with an oxygen saturation level >94% and thus did not qualify for oxygen. Discussion that if the patient became short of breath, or lightheaded she should go to an emergency room. Condition at Discharge: Stable Discharge Diagnoses: Hospital Problems Active Problems * (Principal)Lung mass Mediastinal mass Community acquired pneumonia Atelectasis of right lung Pleural effusion on right Acute hypoxemic respiratory failure (HCC) Surgical Procedures: IR Thoracentesis Endobronchial Ultrasound Esophageal Ultrasound Significant Diagnostic Studies and Procedures: noted in brief hospital course Consults: CTS, GI, Oncology, Pulmonary and Interventional Radiology Patient Disposition: Home Patient instructions/medications: Activity as Tolerated It is important to keep increasing your activity level after you leave the hospital. Moving around can help prevent blood clots, lung infection (pneumonia ) and other problems. Gradually increasing the number of times you are up moving around will help you return to your normal activity level more quickly. Continue to increase the number of times you are up to the chair and walking daily to return to your normal activity level. Begin to work toward your normal activity level at discharge Report These Signs and Symptoms Please contact your doctor if you have any of the following symptoms: temperature higher than 100 degrees F, uncontrolled pain, persistent nausea and/ or vomiting, difficulty breathing, chest pain, severe abdominal pain, headache, unable to urinate, unable to have bowel movement or drainage with a foul odor Questions About Your Stay For questions or concerns regarding your hospital stay. Call [phone] Discharging attending physician: ANGELA MONSON [[id number]] Regular Diet You have no dietary restriction. Please continue with a healthy balanced diet. Return Appointment - Appointment with Dr. Quintero scheduled for Sunday11/21/17 at 8:00am [facility] Address: [address] [place] [address] Current Discharge Medication List START taking these medications Details nystatin (MYCOSTATIN) 100,000 unit/g topical cream Apply to affected area Qty: 15 g, Refills: 0 PRESCRIPTION TYPE: Normal CONTINUE these medications which have NOT CHANGED Details calcium carbonate/vitamin D-3 (OSCAL-500+D) 1250 mg/200 unit tablet Take 1 tablet by mouth daily. Calcium Carb 1250mg delivers 500mg elemental Ca PRESCRIPTION TYPE: Historical Med enalapril (VASOTEC) 10 mg tablet Take 10 mg by mouth daily. PRESCRIPTION TYPE: Historical Med hydroCHLOROthiazide (HYDRODIURIL) 12.5 mg tablet Take 12.5 mg by mouth every morning. PRESCRIPTION TYPE: Historical Med levothyroxine (SYNTHROID) 137 mcg tablet Take 137 mcg by mouth daily 30 minutes before breakfast. PRESCRIPTION TYPE: Historical Med verapamil SR (CALAN-SR) 240 mg tablet Take 240 mg by mouth daily. PRESCRIPTION TYPE: Historical Med vitamins, B complex tab Take 1 tablet by mouth daily. PRESCRIPTION TYPE: Historical Med vitamins, multiple (DAILY MULTI-VITAMIN) tablet Take 1 tablet by mouth daily. PRESCRIPTION TYPE: Historical Med The following medications were removed from your list. This list includes medications discontinued this stay and those removed from your prior med list in our system estradiol (ESTRACE) 0.5 mg tablet estradiol (ESTRACE) 1 mg tablet Scheduled appointments: - Appointment with Dr. Quintero (Dr. Middleton's partner) scheduled for Sunday at 8:00am [facility] [address] [place] [address] Pending items needing follow up: Signed: Amadou Encarnacion MD 11/17/2017 cc: Primary Care Physician: Tad Campbell Referring physicians: Self, Referral Additional provider(s): in this encounter Discharge Instructions * Discharge Instr - Appointments - Amadou Encarnacion MD - 11/17/2017 11:55 AM SENIOR INTERNET SALES CONSULTANT - Appointment with Dr. Quintero (Dr. Middleton's partner) scheduled for 11/21 at 8:00am [facility] [address] [place] [address] in this encounter Medications at Time of Discharge Medication Sig. Disp. Refills Start Date End Date calcium carbonate/vitamin Take 1 tablet by mouth D-3 (OSCAL-500+D) 1250 daily. Calcium Carb mg/200 unit tablet 1250mg delivers 500mg elemental Ca enalapril (VASOTEC) 10 mg Take 10 mg by mouth tablet daily. hydroCHLOROthiazide Take 12.5 mg by mouth (HYDRODIURIL) 12.5 mg every morning. tablet levothyroxine (SYNTHROID) Take 137 mcg by mouth 137 mcg tablet daily 30 minutes before breakfast. nystatin (MYCOSTATIN) Apply to affected area 15 g 0 11/17/2017 100,000 unit/g topical cream verapamil SR (CALAN-SR) Take 240 mg by mouth 240 mg tablet daily. vitamins, B complex tab Take 1 tablet by mouth daily. vitamins, multiple (DAILY Take 1 tablet by mouth MULTI-VITAMIN) tablet daily. as of this encounter Progress Notes * Dayanara Harris, RN - 11/17/2017 2:40 PM SENIOR INTERNET SALES CONSULTANT 0700: Report received and care assumed. Bedside safety check completed. Pt AOx4 and denies pain at this time. 0800: Assessment completed and documented per ICU flowsheet. VSS per pt trends. Pt currently on 1L NC. Will titrate down as able. 1200: RT at bedside for pulse oximetry with exercise. 1300: Dr Monson at bedside and verbal okay for pt to have SpO2 90% while on RA. Plans for discharge this afternoon. 1400: Dr Encarnacion notified that pt desatted to 88% on RA when walking in room with no other symptoms. 1630: Pt desatted to 86% and Dr Lira notified. PT encouraged to take deep breaths and SpO2 returned to 90%. MICU team ok to discharge pt. 1700: Discharge paperwork completed and all questions answered. Transport at bedside to take pt [facility] via wheelchair with all belongings. * Tani Meredith, RT - 11/17/2017 1:00 PM SENIOR INTERNET SALES CONSULTANT RT Exercise Oximetry Note NAME:Jonathon Jay :1945 AGE: 72 y.o. ADMISSION DATE: 11/09/2017 DAYS ADMITTED: LOS: 8 days Date performed: 11/17/17 Time performed: 1300 Time walked: 10 minutes At Rest While Awake Results Room air at rest while awake: SpO2=93% Oxygen required at rest while awake: RA With Exercise Results: Room air SpO2 with exercise, if needed: 89% Oxygen required with exercise, if needed: N/A Oxygen required with exercise: N/A Comments: No oxygen required Therapist: Tani Meredith, RT * Amadou Encarnacion MD - 11/17/2017 6:15 AM SENIOR INTERNET SALES CONSULTANT Formatting of this note may be different from the original. General Progress Note Name: Jonathon Jay Today's Date: 11/17/2017 Admission Date: 11/09/2017 LOS: 8 days Assessment/Plan: Principal Problem: Lung mass Active Problems: Mediastinal mass Community acquired pneumonia Atelectasis of right lung Pleural effusion on right Acute hypoxemic respiratory failure (HCC) 72 y.o. 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 Transferred to the MICU after requiring prolonged bagging after IR procedure. 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 Workup: - Biopsy 10/26/17 in [place], [place] - path review of [facility] - possibly a low grade sarcoma, but cannot r/o other entities and tissue block has been exhausted - PET/CT 11/09/17: Large hypermetabolic mass occupying the majority of the right hemithorax; mild FDG uptake within the right pleural effusion suspicious for malignant effusion. - Thoracentesis 11/09; exudate by Light's (pH 7.45, protein 3.6, LDH 398, alb 2.4, gluc 102; 2460 RBCs, 1670 WBCs, 11% PMNs, 76% lymphs, cytology pending. 800 cc removed. - Oncology consulted, recommending repeat tissue biopsy - GI consulted, planning on EGD/EUS 11/12 determined no involvement of the esophagus or the aorta - IR reports mass may be better bx by bronchoscopy route - CTS recommends pulmonary consultCTS noting mass in likely unresectable. Tumor board on 11/15. No surgical intervention. - Pulmonary EBUS on 11/14 resulting in transfer to MICU for prolonged bagging after anesthesia - Cytology shows Immunohistochemical stains for calretinin and WT-1 stain the numerous mesothelial cells present; stains for Lino-EP4, MOC-31 and TTF-1 are negative, supporting the above diagnosis. Pleural effusion on right - s/p thora 11/09, 800 cc removed with improvement in dyspnea. Concerning for malignant effusion. Given LVQ x1 on admission but no further evidence of infection. - Cytology shows Immunohistochemical stains for calretinin and WT-1 stain the numerous mesothelial cells present; stains for Lino-EP4, MOC-31 and TTF-1 are negative. - Observe off of antibiotics - Repeat cxr am 11/13shows increasing fluid > Consider repeat thoracentesis for symptomatic relief versus placement of Pleurx drain Acute hypoxemic respiratory failure -Due to pleural effusion, most likely. - No baseline O2 requirement prior to hospitalization. - RVP, Legionella, S.pneumo urine ag negative. - BNP normal, trop negative. - CXR showing atelectasis and large R effusion on 11/09. Improving after thoracentesis - Oxygen supplementation as needed, wean as able. - Walking pulse ox, pt able to >92%. > Incentive spirometry > Consider serial thoracentesis versus Pleurx drain placement but will hold due to clinical stability CV Hypertension > Restarted verapamil, enalapril, and HCTZ GI > Regular diet - Creat 0.76 11/17 > Monitor I&O ENDO Hypothyroidism - Thyroid cancer s/p thyroidectomy in 2016 > Continue home levothyroxine HEME > Monitor CBC MSK Rash under R breast - Likely contact dermatitis from tele leads > PRN topical nystatin Psych Mood disorder - patient was taking estradiol for mood changes > Hold for now given her risk of VTE Diet:Regular diet DVT prophylaxis:SCDs Code status:Full code Discussed with Dr. Ilya Encarnacion MD PGY1 Emergency Medicine [address] Jay is a 72 y.o. female. She continues to do well. She denies any acute complaints. Specifically she denies shortness of breath, chest pain, fever, headache, abdominal pain, diarrhea, or constipation. She currently is on 1 L of oxygen via nasal cannula. She performed a walking pulse ox and required no additional oxygen. Cytology completed and oncology states pt able to follow up outpatient. Medications Scheduled Meds: enalapril (VASOTEC) tablet 10 mg 10 mg Oral QDAY hydroCHLOROthiazide (HYDRODIURIL) tablet 12.5 mg 12.5 mg Oral QDAY levothyroxine (SYNTHROID) tablet 137 mcg 137 mcg Oral QDAY 30 min before breakfast triamcinolone acetonide (KENALOG) 0.1 % topical ointment Topical BID Continuous Infusions: PRN and Respiratory Meds:acetaminophen Q6H PRN, nystatin BID PRN, ondansetron ( ZOFRAN) IV Q6H PRN Review of Systems: Constitutional: Denies fever, headache Respiratory: Denies shortness of breath Cardiovascular: Denies chest pain Gastrointestinal: Denies abdominal pain, nausea, vomiting, constipation, diarrhea Genitourinary: Denies dysuria Musculoskeletal: Denies extremity pain Objective: Vital Signs: Last Filed Vital Signs: 24 Hour Range BP: 121/76 (11/17 1999) Temp: 36.7 C (98 F) (11/18 399) Pulse: 99 (11/17 1999) Respirations: 14 PER MINUTE (11/17 040) SpO2: 95 % (11/17 0145) O2 Delivery: CPAP/BiPAP (Pt Owned) (11/18 399) SpO2 Pulse: 104 (11/16 1900) BP: (100-134)/(66-79) Temp: [36.7 C (98 F)-36.8 C (98.3 F)] Pulse: [84-99] Respirations: [12 PER MINUTE-30 PER MINUTE] SpO2: [92 %-96 %] O2 Delivery: CPAP/BiPAP (Pt Owned) Vitals: 11/09/17 0013 11/14/17 1733 Weight: 91.1 kg (200 lb 12.8 oz) 90.4 kg (199 lb 4.7 oz) Intake/Output Summary: (Last 24 hours) Intake/Output Summary (Last 24 hours) at 11/17/17 0615 Last data filed at 11/17/17 0200 Gross per 24 hour Intake 590 ml Output 700 ml Net -110 ml Stool Occurrence: 1 Physical Exam General: Alert, cooperative, no distress, appears stated age Head: Normocephalic, without obvious abnormality, atraumatic Eyes: Conjunctivae/corneas clear. PERRL, EOMs intact Throat: Lips, mucosa and tongue normal Neck: Supple, trachea midline Lungs: No breath sounds auscultated of the left chest, minimal breath sounds on the right. Chest wall: No tenderness or deformity. Abdomen: Soft, non tender to palpation Extremities: No tenderness or swelling Neurologic: Grossly intact Lab Review 24-hour labs: Results for orders placed or performed during the hospital encounter of (from the past 24 hour(s)) CBC AND DIFF Collection Time: 11/17/17 3:35 AM Result Value Ref Range White Blood Cells 6.8 [...] Basophil Count 0.10 0 - 0.20 K/UL MAGNESIUM Collection Time: 11/17/17 3:35 AM Result Value Ref Range Magnesium 2.0 1.6 - 2.6 mg/dL PHOSPHORUS Collection Time: 11/17/17 3:35 AM Result Value Ref Range Phosphorus 3.9 2.0 - 4.0 MG/DL COMPREHENSIVE METABOLIC PANEL Collection Time: 11/17/17 3:35 AM Result Value Ref Range Sodium 138 137 - [...] - 12 eGFR Non >60 >60 mL/min eGFR >60 >60 mL/min Glucose: (!) 109 (11/17/17 0335) Radiology and other Diagnostics Review: Pertinent radiology reviewed. Amadou Encarnacion MD PGY1 Emergency Medicine Pager [phone] Associated attestation - Angela Monson MD - 11/18/2017 11:50 PM CDT Formatting of this note may be different from the original. ATTESTATION I personally performed the zapata portions of the E/M visit, discussed case with resident and concur with resident documentation of history, physical exam, assessment, and treatment plan unless otherwise noted. Staff name: Angela Monson MD Date: 11/18/2017 * Debora Hernandez APRN - 11/16/2017 9:09 AM SENIOR INTERNET SALES CONSULTANT Med-Onc Quick Note: - Appointment with Dr. Quintero (Dr. Middleton's partner) scheduled for 11/21 at 8:00am - Awaiting pathology results from biopsy obtained on 11/15 for definitive treatment planning [facility] Address: [address] [place] [address] Jim Hernandez APRN [phone] * Tani Munson MD - 11/16/2017 5:55 AM SENIOR INTERNET SALES CONSULTANT Formatting of this note may be different from the original. General Progress Note Name: Jonathon Jay Today's Date: 11/16/2017 Admission Date: 11/09/2017 LOS: 7 days Assessment/Plan: Principal Problem: Lung mass Active Problems: Mediastinal mass Community acquired pneumonia Atelectasis of right lung Pleural effusion on right Acute hypoxemic respiratory failure (HCC) 72 y.o. 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 Transferred to the MICU after requiring prolonged bagging after IR procedure. 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 Workup: - Biopsy 10/26/17 in [place], [place] - path review of [facility] - possibly a low grade sarcoma, but cannot r/o other entities and tissue block has been exhausted - PET/CT 11/09/17: Large hypermetabolic mass occupying the majority of the right hemithorax; mild FDG uptake within the right pleural effusion suspicious for malignant effusion. - Thoracentesis 11/09; exudate by Light's (pH 7.45, protein 3.6, LDH 398, alb 2.4, gluc 102; 2460 RBCs, 1670 WBCs, 11% PMNs, 76% lymphs, cytology pending. 800 cc removed. - Oncology consulted, recommending repeat tissue biopsy - GI consulted, planning on EGD/EUS 11/12 determined no involvement of the esophagus or the aorta - IR reports mass may be better bx by bronchoscopy route - CTS recommends pulmonary consultCTS noting mass in likely unresectable. Tumor board on 11/15. No surgical intervention. > Pulmonary EBUS on 11/14 resulting in transfer to MICU for prolonged bagging after anesthesia Pleural effusion on right - s/p thora 11/09, 800 cc removed with improvement in dyspnea. Concerning for malignant effusion. Given LVQ x1 on admission but no further evidence of infection. - F/u pending fluid cx, cytology (Lymphocyte predominant exudate) - Observe off of antibiotics - Repeat cxr am 3/6shows increasing fluid > Consider repeat thoracentesis for symptomatic relief versus placement of Pleurx drain Acute hypoxemic respiratory failure -Due to pleural effusion, most likely. - No baseline O2 requirement prior to hospitalization. - RVP, Legionella, S.pneumo urine ag negative. - BNP normal, trop negative. - CXR showing atelectasis and large R effusion on 11/09. Improving after thoracentesis > Oxygen supplementation as needed, wean as able. > Incentive spirometry > Consider serial thoracentesis versus Pleurx drain placement but will hold due to clinical stability CV Hypertension - Hold home verapamil > Restarted enalapril and HCTZ GI > Regular diet - Creat 0.8 11/16 > Monitor I&O ENDO Hypothyroidism - Thyroid cancer s/p thyroidectomy in 2016 > Continue home levothyroxine HEME > Monitor CBC MSK Rash under R breast - Likely contact dermatitis from tele leads > PRN topical triamcinolone Psych Mood disorder - patient was taking estradiol for mood changes > Hold for now given her risk of VTE Diet:Regular diet DVT prophylaxis:SCDs - Consider starting in a couple days with moderate bleeding on bronch Code status:Full code Discussed with Dr. Jeimy Encarnacion MD PGY1 Emergency Medicine [id number] ATTESTATION I personally performed the zapata portions of the E/M visit, discussed case with the resident and concur with the documentation of history, physical exam, assessment, and treatment plan unless otherwise noted. Doing well. On 2L and stable. Minimal symptoms. Path pending at this time. Resume prophylactic lovenox. Minimal old blood now, no active bleeding. Need final plan from onc perspective. Not sure if inpatient or outpatient chemo planned. Staff name: Tani Munson MD Date: 11/16/2017 Heather Jonathon Jay is a 72 y.o. female. She did well overnight with no acute complaints. She denies shortness of breath, chest pain, fever, headache, abdominal pain, diarrhea, or constipation. She currently is on 2 L of oxygen via nasal cannula. Discussed and updated patient and the plan currently we are awaiting cytology from both her thoracentesis and FNA biopsy. Patient currently awaiting transfer to the floor. Medications Scheduled Meds: levothyroxine (SYNTHROID) tablet 137 mcg 137 mcg Oral QDAY 30 min before breakfast triamcinolone acetonide (KENALOG) 0.1 % topical ointment Topical BID Continuous Infusions: PRN and Respiratory Meds:acetaminophen Q6H PRN, nystatin BID PRN, ondansetron ( ZOFRAN) IV Q6H PRN Review of Systems: Constitutional: Denies fever, headache Respiratory: Denies shortness of breath Cardiovascular: Denies chest pain Gastrointestinal: Denies abdominal pain, nausea, vomiting, constipation, diarrhea Genitourinary: Denies dysuria Musculoskeletal: Denies extremity pain Objective: Vital Signs: Last Filed Vital Signs: 24 Hour Range BP: 120/65 (11/17 399) Temp: 36.4 C (97.6 F) (11/16 0000) Pulse: 80 (11/17 399) Respirations: 16 PER MINUTE (11/17 399) SpO2: 92 % (11/17 399) O2 Delivery: CPAP/BiPAP (Pt Owned) (11/17 399) SpO2 Pulse: 80 (11/17 399) BP: (93-143)/(60-90) Temp: [36.2 C (97.2 F)-36.7 C (98 F)] Pulse: [46-94] Respirations: [16 PER MINUTE-29 PER MINUTE] SpO2: [91 %-98 %] O2 Delivery: CPAP/BiPAP (Pt Owned) Vitals: 11/09/17 0013 11/14/17 1733 Weight: 91.1 kg (200 lb 12.8 oz) 90.4 kg (199 lb 4.7 oz) Intake/Output Summary: (Last 24 hours) Intake/Output Summary (Last 24 hours) at 11/16/17 0555 Last data filed at 11/16/17 0500 Gross per 24 hour Intake 700 ml Output 650 ml Net 50 ml Stool Occurrence: 1 Physical Exam General: Alert, cooperative, no distress, appears stated age Head: Normocephalic, without obvious abnormality, atraumatic Eyes: Conjunctivae/corneas clear. PERRL, EOMs intact Throat: Lips, mucosa and tongue normal Neck: Supple, trachea midline Lungs: No breath sounds auscultated of the left chest, minimal breath sounds on the right. On 2 L NC Chest wall: No tenderness or deformity. Abdomen: Soft, non tender to palpation Extremities: No tenderness or swelling, SCDs in place Neurologic: Grossly intact Lab Review 24-hour labs: Results for orders placed or performed during the hospital encounter of (from the past 24 hour(s)) CBC AND DIFF Collection Time: 11/16/17 5:34 AM Result Value Ref Range White Blood Cells 6.9 4.5 - 11.0 K/UL RBC 3.81 (L) 4.0 - 5.0 M/UL Hemoglobin 10.6 (L) 12.0 - 15.0 GM/DL Hematocrit 32.6 (L) 36 - 45 % MCV 85.4 80 - 100 FL MCH 27.8 26 - 34 PG MCHC 32.6 32.0 - 36.0 G/DL RDW 14.9 11 - 15 % Platelet Count 384 150 - 400 K/UL MPV 6.8 (L) 7 - 11 FL Neutrophils 60 41 - 77 % Lymphocytes 32 24 - 44 % Monocytes 6 4 - 12 % Eosinophils 1 0 - 5 % Basophils 1 0 - 2 % Absolute Neutrophil Count 4.20 1.8 - 7.0 K/UL Absolute Lymph Count 2.20 1.0 - 4.8 K/UL Absolute Monocyte Count 0.40 0 - 0.80 K/UL Absolute Eosinophil Count 0.10 0 - 0.45 K/UL Absolute Basophil Count 0.00 0 - 0.20 K/UL MAGNESIUM Collection Time: 11/16/17 5:34 AM Result Value Ref Range Magnesium 2.1 1.6 - 2.6 mg/dL PHOSPHORUS Collection Time: 11/16/17 5:34 AM Result Value Ref Range Phosphorus 3.8 2.0 - 4.0 MG/DL COMPREHENSIVE METABOLIC PANEL Collection Time: 11/16/17 5:34 AM Result Value Ref Range Sodium 140 137 - 147 MMOL/L Potassium 3.9 3.5 - 5.1 MMOL/L Chloride 103 98 - 110 MMOL/L Glucose 110 (H) 70 - 100 MG/DL Blood Urea Nitrogen 30 (H) 7 - 25 MG/DL Creatinine 0.76 0.4 - 1.00 MG/DL Calcium 8.7 8.5 - 10.6 MG/DL Total Protein 5.7 (L) 6.0 - 8.0 G/DL Total Bilirubin 0.3 0.3 - 1.2 MG/DL Albumin 3.1 (L) 3.5 - 5.0 G/DL Alk Phosphatase 38 25 - 110 U/L AST (SGOT) 14 7 - 40 U/L CO2 30 21 - 30 MMOL/L ALT (SGPT) 15 7 - 56 U/L Anion Gap 7 3 - 12 eGFR Non >60 >60 mL/min eGFR >60 >60 mL/min Radiology and other Diagnostics Review: Pertinent radiology reviewed. Amadou Encarnacion MD PGY1 Emergency Medicine Pager [phone] * Maegan Orr, RT - 11/15/2017 6:11 PM SENIOR INTERNET SALES CONSULTANT Formatting of this note may be different from the original. RESPIRATORY THERAPY ADULT PROTOCOL EVALUATION RESPIRATORY PROTOCOL PLAN Medications Note: If indicated by protocol, medication orders will be placed by therapist. Procedures Oxygen/Humidity: O2 to keep SpO2 > 92% Monitoring: Pulse oximetry BID & PRN PATIENT EVALUATION RESULTS Chart Review * Pulmonary Hx: No pulmonary diagnosis OR no smoking hx * Surgical Hx: No surgery OR last surgery > 6 weeks ago OR trach/stoma (BA) * Chest X-Ray: Clear OR not available * PFT/Oxygenation: FEV1, PEFR < 70% OR Pa02 < 70 RA OR Sp02 <92% RA OR Fi02 > 0.21 to keep Sp02 > 92% OR < 24 hours post-op (02 & oxim) OR chronic C02 retention (C02) Patient Assessment * Respiratory Pattern: Regular pattern and rate OR good chest excursion with deep breathing * Breath Sounds: Clear and able to auscultate bases posteriorly * Cough / Sputum: Strong, effective cough OR nonproductive * Mental Status: Alert, oriented, cooperative * Activity Level: Ambulatory with assistance Priority Index Total Points: 3 Points * Priority Index: 1 PRIORITY INDEX GUIDELINES* Priority Points 1 0-9 points 2 9-18 points 3 > 18 points + Pulm Dx or Home Rx *Higher points indicate higher acuity. Therapist: Maegan Orr, RT Date: 11/15/2017 [place] AC=Airway clearance AM=Aerosolized medication BA=[place] aerosol DB&C=Deep breathe & cough FEV1=Forced expiratory volume in first second) IC=Inspiratory capacity LE=Lung expansion I=Metered dose inhaler Neb=Nebulizer O2=Oxygen Oxim=Oximetry PEFR=Peak expiratory flow rate COMMUNICATIONS SUPERINTENDENT=Rapid Response Team * Leonarda Watkins, RN - 11/15/2017 6:00 PM SENIOR INTERNET SALES CONSULTANT 1800 Assumed care of pt from Cat Brendon RN. Assessment complete, vss. * Richa Olivas RN - 11/15/2017 5:40 PM SENIOR INTERNET SALES CONSULTANT 0730 - assumed care of patient, bedside safety check completed 0800 - assessment completed and documented per ICU flow sheet. Patient alert & oriented x4, follows commands, denies pain at this time. All VSS per patient trends, remains on 6L HFNC, will titrate as tolerated. Will continue to monitor. * Emilee Camargo MD - 11/15/2017 11:44 AM SENIOR INTERNET SALES CONSULTANT CTS Progress Note Case reviewed in multidisciplinary tumor board this morning. Preliminary review of biopsies obtained by EBUS yesterday are concerning for malignancy. We will defer to permanent section of the biopsies for final diagnosis and recommendations, but anticipate based on current information that we will not be able to offer surgical intervention for her given the extent of the mass. Will continue to follow along as we wait for final diagnosis. Emilee Camargo MD * Debora Hernandez APRN - 11/15/2017 7:19 AM SENIOR INTERNET SALES CONSULTANT Formatting of this note may be different from the original. Oncology Consult Progress Note Name: Jonathon Jay Today's Date: 11/14/2017 Admission Date: 11/09/2017 LOS: 5 days Assessment/Plan: Principal Problem: Lung mass Active Problems: Mediastinal mass Community acquired pneumonia Atelectasis of right lung Pleural effusion on right Acute hypoxemic respiratory failure (HCC) Mediastinal Mass - Presented with shortness of breath and dry cough - Noted to have right pleural effusion, mediastinal mass on imaging - 10/22/17: CT chest wo contrast- right posterior pleural space mass, measuring 13.7x 12 x 14.7 cm - 10/26/17: biopsy ofposterior mediastinal/pleural mass and 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 Mild increased FDG uptake associated with the right pleural effusion with maximum SUV of 3.77. No discrete metabolically active lymphadenopathy - 11/09/17: Right thoracentesis, cytology pending - CTS following, plan for discussion CTS tumor board, likely not a surgical candidate - 11/12/17: Upper EUS- The celiac axis was visualized and no celiac nodes were seen. There was no evidence of significant pathology in the left lobe of the liver. There was no sign of significant pathology in the entire pancreas. The mediastinal lesion did not involve the esophagus or the aorta. Fluid was seen surrounding the inferior aspect of the lesion. - 11/14/17: EBUS- Lymph node sizing and sampling was performed. R Hilar Mass of malignancy. Extrinsic compression was found in the right mainstem bronchus, in the bronchus intermedius, in the right upper lobe, in the right middle lobe and in the right lower lobe secondary to posterior mass effect. Hx of Thyroid Cancer - S/p thyroidectomy in 2016 - No adjuvant therapy Plan - Awaiting results from EBUS obtained on 11/14 for definitive treatment planning - Cytology from thoracentesis on 11/09 pending - Per CTS tumor board, patient likely not a candidate and treatment planning will be with systemic treatment - Patient will want to pursue treatment closer to home, in [place], [place]. Patient already established with Dr. Middleton at [facility], [place]. Will arrange ongoing follow up. Patient discussed with Dr. Elder Heather Garner Pierre is a 72 y.o. female. No acute events overnight. No fever or chills. Reports breathing has improved. Denies any current pain. Hopeful to move to floor bed soon. Medications Scheduled Meds: levothyroxine (SYNTHROID) tablet 137 mcg 137 mcg Oral QDAY 30 min before breakfast triamcinolone acetonide (KENALOG) 0.1 % topical ointment Topical BID Continuous Infusions: PRN and Respiratory Meds:acetaminophen Q6H PRN, nystatin BID PRN, ondansetron ( ZOFRAN) IV Q6H PRN Objective Vital Signs: Last Filed Vital Signs: 24 Hour Range BP: 122/63 (11/14 1899) Temp: 36.8 C (98.2 F) (11/15 1999) Pulse: 83 (11/14 1899) Respirations: 21 PER MINUTE (11/14 1899) SpO2: 96 % (11/14 1899) O2 Delivery: High Flow Nasal Cannula (11/15 1999) SpO2 Pulse: 82 (11/14 1899) BP: (96-140)/(42-65) Temp: [36.6 C (97.9 F)-37.3 C (99.1 F)] Pulse: [79-87] Respirations: [18 PER MINUTE-23 PER MINUTE] SpO2: [92 %-96 %] O2 Delivery: High Flow Nasal Cannula Intensity Pain Scale 0-10 (Pain 1): 6 (11/14/17 1324) Vitals: 11/09/17 0013 11/14/17 1733 Weight: 91.1 kg (200 lb 12.8 oz) 90.4 kg (199 lb 4.7 oz) Intake/Output Summary: (Last 24 hours) Intake/Output Summary (Last 24 hours) at 11/14/172018 Last data filed at 11/14/171999 Gross per 24 hour Intake 640 ml Output 850 ml Net -210 ml Stool Occurrence: 1 Review of Systems: A 14 point review of systems was negative except for: Constitutional: positive for fatigue Respiratory: positive for dyspnea on exertion Physical Exam General appearance: Alert, cooperative, no distress Head: Normocephalic, atraumatic Eyes: PERRL Lungs: Non-labored Neurologic: No focal deficits Lab Review 24-hour labs: Results for orders placed or performed during the hospital encounter of (from the past 24 hour(s)) PROTIME INR (PT) Collection Time: 11/14/17 6:12 PM Result Value Ref Range INR 1.2 0.8 - 1.2 PTT (APTT) Collection Time: 11/14/17 6:12 PM Result Value Ref Range APTT 27.7 21.0 - 39.0 SEC PHOSPHORUS Collection Time: 11/14/17 6:12 PM Result Value Ref Range Phosphorus 4.5 (H) 2.0 - 4.0 MG/DL MAGNESIUM Collection Time: 11/14/17 6:12 PM Result Value Ref Range Magnesium 2.1 1.6 - 2.6 mg/dL COMPREHENSIVE METABOLIC PANEL Collection Time: 11/14/17 6:12 PM Result Value Ref Range Sodium 138 137 - 147 MMOL/L Potassium 3.9 3.5 - 5.1 MMOL/L Chloride 101 98 - 110 MMOL/L Glucose 130 (H) 70 - 100 MG/DL Blood Urea Nitrogen 18 7 - 25 MG/DL Creatinine 0.81 0.4 - 1.00 MG/DL Calcium 8.9 8.5 - 10.6 MG/DL Total Protein 6.2 6.0 - 8.0 G/DL Total Bilirubin 0.4 0.3 - 1.2 MG/DL Albumin 3.3 (L) 3.5 - 5.0 G/DL Alk Phosphatase 41 25 - 110 U/L AST (SGOT) 17 7 - 40 U/L CO2 27 21 - 30 MMOL/L ALT (SGPT) 15 7 - 56 U/L Anion Gap 10 3 - 12 eGFR Non >60 >60 mL/min eGFR >60 >60 mL/min CBC AND DIFF Collection Time: 11/14/17 6:12 PM Result Value Ref Range White Blood Cells 8.1 4.5 - 11.0 K/UL RBC 4.22 4.0 - 5.0 M/UL Hemoglobin 11.8 (L) 12.0 - 15.0 GM/DL Hematocrit 36.3 36 - 45 % MCV 86.0 80 - 100 FL MCH 27.9 26 - 34 PG MCHC 32.5 32.0 - 36.0 G/DL RDW 15.2 (H) 11 - 15 % Platelet Count 383 150 - 400 K/UL MPV 7.3 7 - 11 FL Neutrophils 93 (H) 41 - 77 % Lymphocytes 6 (L) 24 - 44 % Monocytes 1 (L) 4 - 12 % Eosinophils 0 0 - 5 % Basophils 0 0 - 2 % Absolute Neutrophil Count 7.40 (H) 1.8 - 7.0 K/UL Absolute Lymph Count 0.50 (L) 1.0 - 4.8 K/UL Absolute Monocyte Count 0.10 0 - 0.80 K/UL Absolute Eosinophil Count 0.00 0 - 0.45 K/UL Absolute Basophil Count 0.00 0 - 0.20 K/UL CBC AND DIFF Collection Time: 11/15/17 2:35 AM Result Value Ref Range White Blood Cells 6.8 4.5 - 11.0 K/UL RBC 4.34 4.0 - 5.0 M/UL Hemoglobin 11.9 (L) 12.0 - 15.0 GM/DL Hematocrit 37.2 36 - 45 % MCV 85.6 80 - 100 FL MCH 27.5 26 - 34 PG MCHC 32.1 32.0 - 36.0 G/DL RDW 14.9 11 - 15 % Platelet Count 402 (H) 150 - 400 K/UL MPV 6.5 (L) 7 - 11 FL Neutrophils 90 (H) 41 - 77 % Lymphocytes 8 (L) 24 - 44 % Monocytes 2 (L) 4 - 12 % Eosinophils 0 0 - 5 % Basophils 0 0 - 2 % Absolute Neutrophil Count 6.10 1.8 - 7.0 K/UL Absolute Lymph Count 0.50 (L) 1.0 - 4.8 K/UL Absolute Monocyte Count 0.10 0 - 0.80 K/UL Absolute Eosinophil Count 0.00 0 - 0.45 K/UL Absolute Basophil Count 0.00 0 - 0.20 K/UL MAGNESIUM Collection Time: 11/15/17 2:35 AM Result Value Ref Range Magnesium 2.2 1.6 - 2.6 mg/dL PHOSPHORUS Collection Time: 11/15/17 2:35 AM Result Value Ref Range Phosphorus 5.0 (H) 2.0 - 4.0 MG/DL COMPREHENSIVE METABOLIC PANEL Collection Time: 11/15/17 2:35 AM Result Value Ref Range Sodium 137 137 - 147 MMOL/L Potassium 3.8 3.5 - 5.1 MMOL/L Chloride 100 98 - 110 MMOL/L Glucose 147 (H) 70 - 100 MG/DL Blood Urea Nitrogen 19 7 - 25 MG/DL Creatinine 0.80 0.4 - 1.00 MG/DL Calcium 8.9 8.5 - 10.6 MG/DL Total Protein 6.5 6.0 - 8.0 G/DL Total Bilirubin 0.4 0.3 - 1.2 MG/DL Albumin 3.5 3.5 - 5.0 G/DL Alk Phosphatase 43 25 - 110 U/L AST (SGOT) 13 7 - 40 U/L CO2 27 21 - 30 MMOL/L ALT (SGPT) 15 7 - 56 U/L Anion Gap 10 3 - 12 eGFR Non >60 >60 mL/min eGFR >60 >60 mL/min Point of Care Testing (Last 24 hours) Glucose: (!) 130 (11/14/17 1812) Radiology and other Diagnostics Review: Pertinent radiology reviewed. Debora Hernandez, E[facility]NER [phone] * Tani Munson MD - 11/15/2017 6:51 AM SENIOR INTERNET SALES CONSULTANT Formatting of this note may be different from the original. General Progress Note Name: Jonathon Jay Today's Date: 11/15/2017 Admission Date: 11/09/2017 LOS: 6 days Assessment/Plan: Principal Problem: Lung mass Active Problems: Mediastinal mass Community acquired pneumonia Atelectasis of right lung Pleural effusion on right Acute hypoxemic respiratory failure (HCC) 72 y.o. 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 Transferred to the MICU after requiring prolonged bagging after IR procedure. 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 Workup: - S/p biopsy 10/26/17 in [place], [place] with path review of [facility] - possibly a low grade sarcoma, but cannot r/o other entities and tissue block has been exhausted - more tissue needed - PET/CT 11/09/17: Large hypermetabolic mass occupying the majority of the right hemithorax; mild FDG uptake within the right pleural effusion suspicious for malignant effusion. - S/p thoracentesis 11/09; exudate by Light's (pH 7.45, protein 3.6, LDH 398, alb 2.4, gluc 102; 2460 RBCs, 1670 WBCs, 11% PMNs, 76% lymphs, cytology pending. 800 cc removed. - Oncology consulted, recommending repeat tissue biopsy - GI consulted, planning on EGD/EUS 11/12 to determine the degree of involvement of esophagus and its surrounding tissue with the medistinal mass - IR reports mass may be better bx by bronchoscopy route - CTS recommends pulmonary consultCTS noting mass in likely unresectable. Will present at tumor board on 11/15. > Pulmonary EBUS on 11/14 resulting in transfer to MICU for prolonged bagging after anesthesia Pleural effusion on right - s/p thora 11/09, 800 cc removed with improvement in dyspnea. Concerning for malignant effusion. Given LVQ x1 on admission but no further evidence of infection. - F/u pending fluid cx, cytology (Lymphocyte predominant exudate) - Observe off of antibiotics - Repeat cxr am 6shows increasing fluid > Consider repeat thoracentesis for symptomatic relief versus placement of Pleurx drain Acute hypoxemic respiratory failure -Due to pleural effusion, most likely. - No baseline O2 requirement. 88% on ra for me - RVP, Legionella, S.pneumo urine ag negative. - BNP normal, trop negative. - CXR showing atelectasis and large R effusion on 11/09. Improving after thoracentesis > Oxygen supplementation as needed, wean as able. > Incentive spirometry > Consider serial thoracentesis versus Pleurx drain placement hold for now. CV Hypertension - Hold home enalapril, verapamil, HCTZ > Restart 11/16 GI - NPO post anesthesia > Advance as tolerated - Creat 0.8 11/14 > Monitor I&O ENDO Hypothyroidism - Thyroid cancer s/p thyroidectomy in 2016 > Continue home levothyroxine HEME > Monitor CBC MSK Rash under R breast - Likely contact dermatitis from tele leads > PRN topical triamcinolone Psych Mood disorder - patient was taking estradiol for mood changes > Hold for now given her risk of VTE Diet:Advance as tolerated DVT prophylaxis:SCDs - consider starting in a couple days with moderate bleeding on bronch Code status:Full code Discussed with Dr. Jeimy Encarnacion MD PGY1 Emergency Medicine 7178 ATTESTATION I personally performed the zapata portions of the E/M visit, discussed case with the resident and concur with the documentation of history, physical exam, assessment, and treatment plan unless otherwise noted. No further bleeding following her procedure yesterday. Respiratory status is comfortable. She remains on 2-3 L by nasal cannula to support her oxygenation. She denies pain. Not ambulating much to determine significant shortness of breath. Good p.o. intake today. Hemoglobin is stable overnight. Plan to transition her back out of the ICU today. Biopsies are pending. Paged oncology service to discuss long-term treatment options. Hoping to get chemotherapy closer to home once that decision has been rendered. Staff name: Tani Munson MD Date: 11/15/2017 Heather Jay is a 72 y.o. female that did well overnight. She denies any chest pain, shortness of breath, abdominal pain, constipation, diarrhea, headache, fever, leg swelling. She states she is eager to eat after being NPO prior to the procedure. She is reading comfortably in bed and has no request at this time. Her oxygen continues to be titrated down. Upon examination she is currently on 3 L by nasal cannula. Plan for today is to continue to monitor while awaiting floor bed. Medications Scheduled Meds: levothyroxine (SYNTHROID) tablet 137 mcg 137 mcg Oral QDAY 30 min before breakfast triamcinolone acetonide (KENALOG) 0.1 % topical ointment Topical BID Continuous Infusions: PRN and Respiratory Meds:acetaminophen Q6H PRN, nystatin BID PRN, ondansetron ( ZOFRAN) IV Q6H PRN Review of Systems: Constitutional: Denies fever, headache Respiratory: Denies shortness of breath Cardiovascular: Denies chest pain Gastrointestinal: Denies abdominal pain, nausea, vomiting, constipation, diarrhea Genitourinary: Denies dysuria Musculoskeletal: Denies extremity pain Objective: Vital Signs: Last Filed Vital Signs: 24 Hour Range BP: 127/90 (11/15 599) Temp: 36.9 C (98.4 F) (11/15 0400) Pulse: 83 (11/15 599) Respirations: 21 PER MINUTE (11/15 599) SpO2: 98 % (11/15 599) O2 Delivery: High Flow Nasal Cannula (11/15 599) SpO2 Pulse: 83 (11/15 599) BP: (96-140)/(42-90) Temp: [36.6 C (97.8 F)-36.9 C (98.4 F)] Pulse: [70-87] Respirations: [16 PER MINUTE-30 PER MINUTE] SpO2: [92 %-98 %] O2 Delivery: High Flow Nasal Cannula Intensity Pain Scale 0-10 (Pain 1): 6 (11/14/17 1324) Vitals: 11/09/17 0013 11/14/17 1733 Weight: 91.1 kg (200 lb 12.8 oz) 90.4 kg (199 lb 4.7 oz) Intake/Output Summary: (Last 24 hours) Intake/Output Summary (Last 24 hours) at 11/15/17 0652 Last data filed at 11/15/17 0500 Gross per 24 hour Intake 400 ml Output 950 ml Net -550 ml Stool Occurrence: 1 Physical Exam General: Alert, cooperative, no distress, appears stated age Head: Normocephalic, without obvious abnormality, atraumatic Eyes: Conjunctivae/corneas clear. PERRL, EOMs intact Throat: Lips, mucosa and tongue normal Neck: Supple, trachea midline Lungs: No breath sounds auscultated of the left chest, minimal breath sounds on the right Chest wall: No tenderness or deformity. Abdomen: Soft, non tender to palpation Extremities: No tenderness or swelling Neurologic: Grossly intact Lab Review 24-hour labs: Results for orders placed or performed during the hospital encounter of (from the past 24 hour(s)) PROTIME INR (PT) Collection Time: 11/14/17 12:30 PM Result Value Ref Range INR 1.2 0.8 - 1.2 TYPE & CROSSMATCH Collection Time: 11/14/17 12:30 PM Result Value Ref Range Units Ordered 0 Crossmatch Expires 11/17/2017 Record Check 2ND TYPE REQUIRED ABO/RH(D) O POS Antibody Screen NEG PROTIME INR (PT) Collection Time: 11/14/17 6:12 PM Result Value Ref Range INR 1.2 0.8 - 1.2 PTT (APTT) Collection Time: 11/14/17 6:12 PM Result Value Ref Range APTT 27.7 21.0 - 39.0 SEC PHOSPHORUS Collection Time: 11/14/17 6:12 PM Result Value Ref Range Phosphorus 4.5 (H) 2.0 - 4.0 MG/DL MAGNESIUM Collection Time: 11/14/17 6:12 PM Result Value Ref Range Magnesium 2.1 1.6 - 2.6 mg/dL COMPREHENSIVE METABOLIC PANEL Collection Time: 11/14/17 6:12 PM Result Value Ref Range Sodium 138 137 - 147 MMOL/L Potassium 3.9 3.5 - 5.1 MMOL/L Chloride 101 98 - 110 MMOL/L Glucose 130 (H) 70 - 100 MG/DL Blood Urea Nitrogen 18 7 - 25 MG/DL Creatinine 0.81 0.4 - 1.00 MG/DL Calcium 8.9 8.5 - 10.6 MG/DL Total Protein 6.2 6.0 - 8.0 G/DL Total Bilirubin 0.4 0.3 - 1.2 MG/DL Albumin 3.3 (L) 3.5 - 5.0 G/DL Alk Phosphatase 41 25 - 110 U/L AST (SGOT) 17 7 - 40 U/L CO2 27 21 - 30 MMOL/L ALT (SGPT) 15 7 - 56 U/L Anion Gap 10 3 - 12 eGFR Non >60 >60 mL/min eGFR >60 >60 mL/min CBC AND DIFF Collection Time: 11/14/17 6:12 PM Result Value Ref Range White Blood Cells 8.1 4.5 - 11.0 K/UL RBC 4.22 4.0 - 5.0 M/UL Hemoglobin 11.8 (L) 12.0 - 15.0 GM/DL Hematocrit 36.3 36 - 45 % MCV 86.0 80 - 100 FL MCH 27.9 26 - 34 PG MCHC 32.5 32.0 - 36.0 G/DL RDW 15.2 (H) 11 - 15 % Platelet Count 383 150 - 400 K/UL MPV 7.3 7 - 11 FL Neutrophils 93 (H) 41 - 77 % Lymphocytes 6 (L) 24 - 44 % Monocytes 1 (L) 4 - 12 % Eosinophils 0 0 - 5 % Basophils 0 0 - 2 % Absolute Neutrophil Count 7.40 (H) 1.8 - 7.0 K/UL Absolute Lymph Count 0.50 (L) 1.0 - 4.8 K/UL Absolute Monocyte Count 0.10 0 - 0.80 K/UL Absolute Eosinophil Count 0.00 0 - 0.45 K/UL Absolute Basophil Count 0.00 0 - 0.20 K/UL CBC AND DIFF Collection Time: 11/15/17 2:35 AM Result Value Ref Range White Blood Cells 6.8 4.5 - 11.0 K/UL RBC 4.34 4.0 - 5.0 M/UL Hemoglobin 11.9 (L) 12.0 - 15.0 GM/DL Hematocrit 37.2 36 - 45 % MCV 85.6 80 - 100 FL MCH 27.5 26 - 34 PG MCHC 32.1 32.0 - 36.0 G/DL RDW 14.9 11 - 15 % Platelet Count 402 (H) 150 - 400 K/UL MPV 6.5 (L) 7 - 11 FL Neutrophils 90 (H) 41 - 77 % Lymphocytes 8 (L) 24 - 44 % Monocytes 2 (L) 4 - 12 % Eosinophils 0 0 - 5 % Basophils 0 0 - 2 % Absolute Neutrophil Count 6.10 1.8 - 7.0 K/UL Absolute Lymph Count 0.50 (L) 1.0 - 4.8 K/UL Absolute Monocyte Count 0.10 0 - 0.80 K/UL Absolute Eosinophil Count 0.00 0 - 0.45 K/UL Absolute Basophil Count 0.00 0 - 0.20 K/UL MAGNESIUM Collection Time: 11/15/17 2:35 AM Result Value Ref Range Magnesium 2.2 1.6 - 2.6 mg/dL PHOSPHORUS Collection Time: 11/15/17 2:35 AM Result Value Ref Range Phosphorus 5.0 (H) 2.0 - 4.0 MG/DL COMPREHENSIVE METABOLIC PANEL Collection Time: 11/15/17 2:35 AM Result Value Ref Range Sodium 137 137 - 147 MMOL/L Potassium 3.8 3.5 - 5.1 MMOL/L Chloride 100 98 - 110 MMOL/L Glucose 147 (H) 70 - 100 MG/DL Blood Urea Nitrogen 19 7 - 25 MG/DL Creatinine 0.80 0.4 - 1.00 MG/DL Calcium 8.9 8.5 - 10.6 MG/DL Total Protein 6.5 6.0 - 8.0 G/DL Total Bilirubin 0.4 0.3 - 1.2 MG/DL Albumin 3.5 3.5 - 5.0 G/DL Alk Phosphatase 43 25 - 110 U/L AST (SGOT) 13 7 - 40 U/L CO2 27 21 - 30 MMOL/L ALT (SGPT) 15 7 - 56 U/L Anion Gap 10 3 - 12 eGFR Non >60 >60 mL/min eGFR >60 >60 mL/min Point of Care Testing (Last 24 hours) Glucose: (!) 147 (11/15/17 3425) Radiology and other Diagnostics Review: Pertinent radiology reviewed. Amadou Encarnacion MD PGY1 Emergency Medicine Pager [phone] * Angela Del Castillo RN - 11/14/2017 7:49 PM SENIOR [employer] SALES CONSULTANT 1930: Assumed care of patient. Bedside safety check completed with day shift RN. Lines and alarms verified. Patient alert and oriented x4, follows commands, on HFNC. 2000: Assessment completed and documented per ICU flowsheet. Patient VSS per patient trend. Orders reviewed and implemented. Bed locked low. Call light in reach. Will continue to monitor and assess. * Richa Olivas RN - 11/14/2017 6:36 PM SENIOR INTERNET SALES CONSULTANT 1730 - patient arrived to 63 from GI/Endo. Bedside safety check completed. Assessment completed and documented per ICU flow sheet. Patient alert & oriented x4, follows commands, denies pain at this time. Placed on HFNC, will titrate as tolerated. All other VSS per patient trends, will continue to monitor. * Elizabeth Navarrete RN - 11/14/2017 5:42 PM SENIOR INTERNET SALES CONSULTANT Patient arrived to room # (6314) via cart accompanied by RN. Patient transferred to the bed with assistance. Bedside safety checks completed. Initial patient assessment completed, refer to flowsheet for details. Admission skin assessment completed by: Jaky Navarrete RN and Luis eFrguson RN. Pressure Injury Present on Hospital Admission (within 24 hours): No 1. Occiput: No 2. Ear: No 3. Scapula: No 4. Spinous Process: No 5. Shoulder: No 6. Elbow: No 7. Iliac Crest: No 8. Sacrum/Coccyx: No 9. Ischial Tuberosity: No 10. Trochanter: No 11. Knee: No 12. Malleolus: No 13. Heel: No 14. Toes: No 15. Assessed for device associated injury Yes 16. Nursing Nutrition Assessment Completed Yes See Doc Flowsheet for additional wound details. INTERVENTIONS: Q2 hour turning, offload pressure surfaces. 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 General Progress Note Today's Date: 11/14/2017 Admission Date: 11/09/2017 LOS: 5 days Assessment/Plan: Principal Problem: Lung mass Active Problems: Mediastinal mass Community acquired pneumonia Atelectasis of right lung Pleural effusion on right Acute hypoxemic respiratory failure (HCC) Ms. 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 She presented to [facility] in [place], [place] with dyspnea and dry cough, found to have increased right-sided pleural effusion and atelectasis, transferred to [facility]. S/p thoracentesis 11/09 with improvement in dyspnea. Planning on obtaining more tissue for diagnosis based on recommendation of oncology. 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 - S/p thoracentesis 11/09; exudate by Light's (pH 7.45, protein 3.6, LDH 398, alb 2.4, gluc 102; 2460 RBCs, 1670 WBCs, 11% PMNs, 76% lymphs, cytology pending. 800 cc removed. Plan: - Oncology consulted, recommending repeat tissue biopsy - GI consulted, planning on EGD/EUS 11/12 to determine the degree of involvement of esophagus and its surrounding tissue with the medistinal mass -IR reports mass may be better bx by bronchoscopy route - will d/w CTS, CTS recommends pulmonary consult CTS noting mass in likely unresectable. Will present at tumor board on 11/15. -pulmonary consult placed 11/13, possible EBUS on 11/14 -Patient will go for EBUS and is planned to be intubated as such will transfer to ICU service postprocedure Pleural effusion on right - s/p thora 11/09, 800 cc removed with improvement in dyspnea. Concerning for malignant effusion. Given LVQ x1 on admission but no further evidence of infection. - F/u pending fluid cx, cytology - Observe off of antibiotics -Pulmonary plans to perhaps perform thoracentesis with pleural manometry to evaluate for tumor entrapment of the lung Acute hypoxemic respiratory failure - Due to pleural effusion, most likely. No baseline O2 requirement. Here, RVP, Legionella, S.pneumo urine ag negative. BNP normal, trop negative.. CXR showing atelectasis and large R effusion on 11/09. Improving after thora - Oxygen supplementation as needed, wean as able. - Incentive spirometry -likely will require serial thoracentesis versus Pleurx drain placement if lung reexpansion is even possible given concern for entrapment by large tumor as described in pulmonary consult Rash under R breast - Likely contact dermatitis from tele leads -Improving with topical triamcinolone Hypertension - Continue home enalapril, verapamil, HCTZ Hypothyroidism - Continue home levothyroxine Mood disorder - patient was taking estradiol for mood changes, will hold for now given her risk of VTE Diet: N.p.o. for planned procedure DVT prophylaxis: Resume low molecular weight heparin after procedures completed Code status: Full code Renay Subjective Jonathon Jay is a 72 y.o. female. No events overnight. Review of systems: Patient feels well, a bit nervous about upcoming procedure, is thankful to be getting procedures completed, no events overnight, understand she will be intubated and transferred to ICU following procedure, no fever/chills/nausea/ vomiting overnight, currently n.p.o. for procedure Medications Scheduled Meds: levothyroxine (SYNTHROID) tablet 137 mcg 137 mcg Oral QDAY 30 min before breakfast triamcinolone acetonide (KENALOG) 0.1 % topical ointment Topical BID Continuous Infusions: PRN and Respiratory Meds:acetaminophen Q6H PRN, nystatin BID PRN, ondansetron ( ZOFRAN) IV Q6H PRN Objective Vital Signs: Last Filed Vital Signs: 24 Hour Range BP: 122/63 (11/140) Temp: 36.8 C (98.2 F) (11/15 1999) Pulse: 83 (11/14 1899) Respirations: 21 PER MINUTE (11/14 1899) SpO2: 96 % (11/14 1899) O2 Delivery: High Flow Nasal Cannula (11/15 1999) SpO2 Pulse: 82 (11/14 1899) BP: (96-140)/(42-65) Temp: [36.6 C (97.9 F)-37.3 C (99.1 F)] Pulse: [79-87] Respirations: [18 PER MINUTE-23 PER MINUTE] SpO2: [92 %-96 %] O2 Delivery: High Flow Nasal Cannula Intensity Pain Scale 0-10 (Pain 1): 6 (11/14/17 1324) Vitals: 11/09/17 0013 11/14/17 1733 Weight: 91.1 kg (200 lb 12.8 oz) 90.4 kg (199 lb 4.7 oz) Intake/Output Summary: (Last 24 hours) Intake/Output Summary (Last 24 hours) at 11/14/172109 Last data filed at 11/14/171999 Gross per 24 hour Intake 400 ml Output 750 ml Net -350 ml Stool Occurrence: 1 Physical Exam GENERAL: calm, cooperative, no acute distress HEAD and NECK: EOMI, PERRL, neck supple CARDIOVASCULAR: normal rate, regular rhythm, no murmurs, rubs, or gallops. PULMONARY:-Absent breath sounds on right and clear egophony suggestive of large right-sided pleural effusion, patient is not in distress there is no increased work of breathing and she is speaking full sentences ABDOMEN: soft, nontender, nondistended, no rebound or guarding GENITOURINARY: no dalal in place EXTREMITIES: extremities warm, well-perfused, no edema. Normal peripheral pulses. SKIN: no rashes on exposed skin Lab Review 24-hour labs: Results for orders placed or performed during the hospital encounter of (from the past 24 hour(s)) CBC AND DIFF Collection Time: 11/14/17 5:34 AM Result Value Ref Range White Blood Cells 8.1 4.5 - 11.0 K/UL RBC 4.58 4.0 - 5.0 M/UL Hemoglobin 12.6 12.0 - 15.0 GM/DL Hematocrit 39.3 36 - 45 % MCV 86.0 80 - 100 FL MCH 27.6 26 - 34 PG MCHC 32.1 32.0 - 36.0 G/DL RDW 15.4 (H) 11 - 15 % Platelet Count 425 (H) 150 - 400 K/UL MPV 6.9 (L) 7 - 11 FL Neutrophils 71 41 - 77 % Lymphocytes 21 (L) 24 - 44 % Monocytes 6 4 - 12 % Eosinophils 1 0 - 5 % Basophils 1 0 - 2 % Absolute Neutrophil Count 5.80 1.8 - 7.0 K/UL Absolute Lymph Count 1.70 1.0 - 4.8 K/UL Absolute Monocyte Count 0.50 0 - 0.80 K/UL Absolute Eosinophil Count 0.10 0 - 0.45 K/UL Absolute Basophil Count 0.00 0 - 0.20 K/UL COMPREHENSIVE METABOLIC PANEL Collection Time: 11/14/17 5:34 AM Result Value Ref Range Sodium 137 137 - 147 MMOL/L Potassium 3.5 3.5 - 5.1 MMOL/L Chloride 100 98 - 110 MMOL/L Glucose 119 (H) 70 - 100 MG/DL Blood Urea Nitrogen 20 7 - 25 MG/DL Creatinine 0.80 0.4 - 1.00 MG/DL Calcium 9.4 8.5 - 10.6 MG/DL Total Protein 6.6 6.0 - 8.0 G/DL Total Bilirubin 0.4 0.3 - 1.2 MG/DL Albumin 3.4 (L) 3.5 - 5.0 G/DL Alk Phosphatase 49 25 - 110 U/L AST (SGOT) 13 7 - 40 U/L CO2 29 21 - 30 MMOL/L ALT (SGPT) 17 7 - 56 U/L Anion Gap 8 3 - 12 eGFR Non >60 >60 mL/min eGFR >60 >60 mL/min PROTIME INR (PT) Collection Time: 11/14/17 12:30 PM Result Value Ref Range INR 1.2 0.8 - 1.2 TYPE & CROSSMATCH Collection Time: 11/14/17 12:30 PM Result Value Ref Range Units Ordered 0 Crossmatch Expires 11/17/2017 Record Check 2ND TYPE REQUIRED ABO/RH(D) O POS Antibody Screen NEG PROTIME INR (PT) Collection Time: 11/14/17 6:12 PM Result Value Ref Range INR 1.2 0.8 - 1.2 PTT (APTT) Collection Time: 11/14/17 6:12 PM Result Value Ref Range APTT 27.7 21.0 - 39.0 SEC PHOSPHORUS Collection Time: 11/14/17 6:12 PM Result Value Ref Range Phosphorus 4.5 (H) 2.0 - 4.0 MG/DL MAGNESIUM Collection Time: 11/14/17 6:12 PM Result Value Ref Range Magnesium 2.1 1.6 - 2.6 mg/dL COMPREHENSIVE METABOLIC PANEL Collection Time: 11/14/17 6:12 PM Result Value Ref Range Sodium 138 137 - 147 MMOL/L Potassium 3.9 3.5 - 5.1 MMOL/L Chloride 101 98 - 110 MMOL/L Glucose 130 (H) 70 - 100 MG/DL Blood Urea Nitrogen 18 7 - 25 MG/DL Creatinine 0.81 0.4 - 1.00 MG/DL Calcium 8.9 8.5 - 10.6 MG/DL Total Protein 6.2 6.0 - 8.0 G/DL Total Bilirubin 0.4 0.3 - 1.2 MG/DL Albumin 3.3 (L) 3.5 - 5.0 G/DL Alk Phosphatase 41 25 - 110 U/L AST (SGOT) 17 7 - 40 U/L CO2 27 21 - 30 MMOL/L ALT (SGPT) 15 7 - 56 U/L Anion Gap 10 3 - 12 eGFR Non >60 >60 mL/min eGFR >60 >60 mL/min CBC AND DIFF Collection Time: 11/14/17 6:12 PM Result Value Ref Range White Blood Cells 8.1 4.5 - 11.0 K/UL RBC 4.22 4.0 - 5.0 M/UL Hemoglobin 11.8 (L) 12.0 - 15.0 GM/DL Hematocrit 36.3 36 - 45 % MCV 86.0 80 - 100 FL MCH 27.9 26 - 34 PG MCHC 32.5 32.0 - 36.0 G/DL RDW 15.2 (H) 11 - 15 % Platelet Count 383 150 - 400 K/UL MPV 7.3 7 - 11 FL Neutrophils 93 (H) 41 - 77 % Lymphocytes 6 (L) 24 - 44 % Monocytes 1 (L) 4 - 12 % Eosinophils 0 0 - 5 % Basophils 0 0 - 2 % Absolute Neutrophil Count 7.40 (H) 1.8 - 7.0 K/UL Absolute Lymph Count 0.50 (L) 1.0 - 4.8 K/UL Absolute Monocyte Count 0.10 0 - 0.80 K/UL Absolute Eosinophil Count 0.00 0 - 0.45 K/UL Absolute Basophil Count 0.00 0 - 0.20 K/UL Point of Care Testing (Last 24 hours) Glucose: (!) 130 (11/14/17 1812) Radiology and other Diagnostics Review: Pertinent radiology reviewed. Harley Niño MD * Harley Niño MD - 11/13/2017 4:22 PM S[employer]IOR [employer] SAL[employer] CONSULTANT Formatting of this note may be different from the original. General Progress Note Today's Date: 11/13/2017 Admission Date: 11/09/2017 LOS: 4 days Assessment/Plan: Principal Problem: Lung mass Active Problems: Mediastinal mass Community acquired pneumonia Atelectasis of right lung Pleural effusion on right Acute hypoxemic respiratory failure (HCC) Ms. 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 She presented to [facility] in [place], [place] with dyspnea and dry cough, found to have increased right-sided pleural effusion and atelectasis, transferred to [facility]. S/p thoracentesis 11/09 with improvement in dyspnea. Planning on obtaining more tissue for diagnosis based on recommendation of oncology. 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 - S/p thoracentesis 11/09; exudate by Light's (pH 7.45, protein 3.6, LDH 398, alb 2.4, gluc 102; 2460 RBCs, 1670 WBCs, 11% PMNs, 76% lymphs, cytology pending. 800 cc removed. Plan: - Oncology consulted, recommending repeat tissue biopsy - GI consulted, planning on EGD/EUS 11/12 to determine the degree of involvement of esophagus and its surrounding tissue with the medistinal mass -IR reports mass may be better bx by bronchoscopy route - will d/w CTS, CTS recommends pulmonary consult CTS noting mass in likely unresectable. Will present at tumor board on 11/15. -pulmonary consult placed 11/13, possible EBUS on 11/14 Pleural effusion on right - s/p thora 11/09, 800 cc removed with improvement in dyspnea. Concerning for malignant effusion. Given LVQ x1 on admission but no further evidence of infection. - F/u pending fluid cx, cytology - Observe off of antibiotics - repeat cxr am 11/13 shows increasing fluid -Will inquire with pulmonary serial thoracentesis for symptomatic relief versus placement of Pleurx drain Acute hypoxemic respiratory failure - Due to pleural effusion, most likely. No baseline O2 requirement. Here, RVP, Legionella, S.pneumo urine ag negative. BNP normal, trop negative.. CXR showing atelectasis and large R effusion on 11/09. Improving after thora - Oxygen supplementation as needed, wean as able. - Incentive spirometry -likely will require serial thoracentesis versus Pleurx drain placement Rash under R breast - Likely contact dermatitis from tele leads -Improving with topical triamcinolone Hypertension - Continue home enalapril, verapamil, HCTZ Hypothyroidism - Continue home levothyroxine Mood disorder - patient was taking estradiol for mood changes, will hold for now given her risk of VTE Diet: resume reg diet post endoscopy DVT prophylaxis: lmwh - hold tonight for EGD/EUS tomorrow Code status: Full code Leopoldoeman Heather Garner Pierre is a 72 y.o. female. No events overnight. Review of systems: Complains of sore throat from EGD procedure, complains of soreness in the hip which was relieved overnight with Flexeril, planning to take shower and do some moving today, would like to have telemetry discontinued, no other complaints Medications Scheduled Meds: docusate (COLACE) capsule 100 mg 100 mg Oral QDAY enalapril (VASOTEC) tablet 10 mg 10 mg Oral QDAY hydroCHLOROthiazide (HYDRODIURIL) tablet 12.5 mg 12.5 mg Oral QAM8 levothyroxine (SYNTHROID) tablet 137 mcg 137 mcg Oral QDAY 30 min before breakfast triamcinolone acetonide (KENALOG) 0.1 % topical ointment Topical BID verapamil SR (CALAN-SR) tablet 240 mg 240 mg Oral QDAY Continuous Infusions: PRN and Respiratory Meds:acetaminophen Q6H PRN, cyclobenzaprine TID PRN, nystatin BID PRN, ondansetron (ZOFRAN) IV Q6H PRN Objective Vital Signs: Last Filed Vital Signs: 24 Hour Range BP: 122/54 (11/13 1502) Temp: 36.4 C (97.6 F) (11/13 1502) Pulse: 57 (11/13 1502) Respirations: 18 PER MINUTE (11/13 1502) SpO2: 92 % (11/13 1502) O2 Delivery: Nasal Cannula (11/13 1502) SpO2 Pulse: 82 (11/12 1900) BP: (121-152)/(49-71) Temp: [36.4 C (97.6 F)-37.2 C (99 F)] Pulse: [57-85] Respirations: [18 PER MINUTE-28 PER MINUTE] SpO2: [92 %-98 %] O2 Delivery: Nasal Cannula Intensity Pain Scale 0-10 (Pain 1): 7 (11/13/17 1229) Vitals: 11/09/17 0013 Weight: 91.1 kg (200 lb 12.8 oz) Intake/Output Summary: (Last 24 hours) Intake/Output Summary (Last 24 hours) at 11/13/17 1622 Last data filed at 11/13/17 1457 Gross per 24 hour Intake 880 ml Output 525 ml Net 355 ml Stool Occurrence: 1 (smear per pt. ) Physical Exam GENERAL: calm, cooperative, no acute distress HEAD and NECK: EOMI, PERRL, neck supple CARDIOVASCULAR: normal rate, regular rhythm, no murmurs, rubs, or gallops. PULMONARY:-Absent breath sounds on right and clear egophony suggestive of large right-sided pleural effusion, patient is not in distress there is no increased work of breathing and she is speaking full sentences ABDOMEN: soft, nontender, nondistended, no rebound or guarding GENITOURINARY: no dalal in place EXTREMITIES: extremities warm, well-perfused, no edema. Normal peripheral pulses. SKIN: no rashes on exposed skin Lab Review 24-hour labs: Results for orders placed or performed during the hospital encounter of (from the past 24 hour(s)) CBC AND DIFF Collection Time: 11/13/17 6:02 AM Result Value Ref Range White Blood Cells 6.2 4.5 - 11.0 K/UL RBC 4.15 4.0 - 5.0 M/UL Hemoglobin 11.5 (L) 12.0 - 15.0 GM/DL Hematocrit 35.5 (L) 36 - 45 % MCV 85.4 80 - 100 FL MCH 27.6 26 - 34 PG MCHC 32.3 32.0 - 36.0 G/DL RDW 15.3 (H) 11 - 15 % Platelet Count 315 150 - 400 K/UL MPV 6.9 (L) 7 - 11 FL Neutrophils 70 41 - 77 % Lymphocytes 21 (L) 24 - 44 % Monocytes 8 4 - 12 % Eosinophils 1 0 - 5 % Basophils 0 0 - 2 % Absolute Neutrophil Count 4.30 1.8 - 7.0 K/UL Absolute Lymph Count 1.30 1.0 - 4.8 K/UL Absolute Monocyte Count 0.50 0 - 0.80 K/UL Absolute Eosinophil Count 0.10 0 - 0.45 K/UL Absolute Basophil Count 0.00 0 - 0.20 K/UL COMPREHENSIVE METABOLIC PANEL Collection Time: 11/13/17 6:02 AM Result Value Ref Range Sodium 140 137 - 147 MMOL/L Potassium 3.7 3.5 - 5.1 MMOL/L Chloride 103 98 - 110 MMOL/L Glucose 108 (H) 70 - 100 MG/DL Blood Urea Nitrogen 17 7 - 25 MG/DL Creatinine 0.73 0.4 - 1.00 MG/DL Calcium 8.8 8.5 - 10.6 MG/DL Total Protein 5.9 (L) 6.0 - 8.0 G/DL Total Bilirubin 0.6 0.3 - 1.2 MG/DL Albumin 3.1 (L) 3.5 - 5.0 G/DL Alk Phosphatase 40 25 - 110 U/L AST (SGOT) 12 7 - 40 U/L CO2 31 (H) 21 - 30 MMOL/L ALT (SGPT) 14 7 - 56 U/L Anion Gap 6 3 - 12 eGFR Non >60 >60 mL/min eGFR >60 >60 mL/min Point of Care Testing (Last 24 hours) Glucose: (!) 108 (11/13/17 0602) Radiology and other Diagnostics Review: Pertinent radiology reviewed. Harley Niño MD * Opal Arellano MD - 11/12/2017 10:09 PM S[employer]IOR [employer] SAL[employer] CONSULTANT EUS on 11/12/2017 with the axial mass with no involvement of the esophagus or the aorta. Please refer to endoscopic report for details GI will sign off at this point, please contact us with further questions or concerns as needed Discussed with my attending physician Dr. Burrell Associated attestation - Truong uBrrell MBBS - 11/25/2017 10:58 AM CDT Formatting of this note may be different from the original. ATTESTATION I personally performed the zapata portions of the E/M visit, discussed case with resident and concur with resident documentation of history, physical exam, assessment, and treatment plan unless otherwise noted. Staff name: KENDALL Desai Date: 11/25/2017 * Harley Niño MD - 11/12/2017 8:41 PM SENIOR [employer] SALES CONSULTANT Formatting of this note may be different from the original. General Progress Note Today's Date: 11/12/2017 Admission Date: 11/09/2017 LOS: 3 days Assessment/Plan: Active Problems: Mediastinal mass Community acquired pneumonia Atelectasis of right lung Pleural effusion on right Acute hypoxemic respiratory failure (HCC) Ms. 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 She presented to [facility] in [place], [place] with dyspnea and dry cough, found to have increased right-sided pleural effusion and atelectasis, transferred to [facility]. S/p thoracentesis 11/09 with improvement in dyspnea. Planning on obtaining more tissue for diagnosis, with EGD/EUS planned for tomorrow, 11/12. 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 - S/p thoracentesis 11/09; exudate by Light's (pH 7.45, protein 3.6, LDH 398, alb 2.4, gluc 102; 2460 RBCs, 1670 WBCs, 11% PMNs, 76% lymphs, cytology pending. 800 cc removed. Plan: - Oncology consulted, recommending repeat tissue biopsy - GI consulted, planning on EGD/EUS 11/12 to determine the degree of involvement of esophagus and its surrounding tissue with the medistinal mass -IR reports mass may be better bx by bronchoscopy route - will d/w CTS - CTS noting mass in likely unresectable. Will present at tumor board on 11/15. Pleural effusion on right - s/p thora 11/09, 800 cc removed with improvement in dyspnea. Concerning for malignant effusion. Given LVQ x1 on admission but no further evidence of infection. - F/u pending fluid cx, cytology - Observe off of antibiotics - repeat cxr am 11/13 Acute hypoxemic respiratory failure - Due to pleural effusion, most likely. No baseline O2 requirement. Here, RVP, Legionella, S.pneumo urine ag negative. BNP normal, trop negative.. CXR showing atelectasis and large R effusion on 11/09. Improving after thora - Oxygen supplementation as needed, wean as able. - Incentive spirometry Rash under R breast - Likely contact dermatitis from tele leads - Trial of topical triamcinolone today Hypertension - Continue home enalapril, verapamil, HCTZ Hypothyroidism - Continue home levothyroxine Mood disorder - patient was taking estradiol for mood changes, will hold for now given her risk of VTE Diet: resume reg diet post endoscopy DVT prophylaxis: lmwh - hold tonight for EGD/EUS tomorrow Code status: Full code Renay Bernabe spent a total of 40 minutes in pt care today with an estimated 35 minutes spent reviewing admit H&P, course to date, and coordinating care. Heather Jay is a 72 y.o. female. No events overnight. Review of systems: Denies any fever, chills, abdominal pain, nausea vomiting, diarrhea, leg swelling. Medications Scheduled Meds: docusate (COLACE) capsule 100 mg 100 mg Oral QDAY enalapril (VASOTEC) tablet 10 mg 10 mg Oral QDAY hydroCHLOROthiazide (HYDRODIURIL) tablet 12.5 mg 12.5 mg Oral QAM8 levothyroxine (SYNTHROID) tablet 137 mcg 137 mcg Oral QDAY 30 min before breakfast triamcinolone acetonide (KENALOG) 0.1 % topical ointment Topical BID verapamil SR (CALAN-SR) tablet 240 mg 240 mg Oral QDAY Continuous Infusions: PRN and Respiratory Meds:acetaminophen Q6H PRN, nystatin BID PRN, ondansetron ( ZOFRAN) IV Q6H PRN Objective Vital Signs: Last Filed Vital Signs: 24 Hour Range BP: 152/66 (11/12 1899) Temp: 37 C (98.6 F) (11/12 1850) Pulse: 69 (11/12 1899) Respirations: 28 PER MINUTE (11/12 1899) SpO2: 92 % (11/12 1899) O2 Delivery: Nasal Cannula (11/12 172) SpO2 Pulse: 82 (11/12 1899) BP: (121-152)/(43-71) Temp: [36.8 C (98.2 F)-37.3 C (99.1 F)] Pulse: [50-156] Respirations: [18 PER MINUTE-28 PER MINUTE] SpO2: [92 %-95 %] O2 Delivery: Nasal Cannula Intensity Pain Scale 0-10 (Pain 1): 7 (11/12/17 1730) Vitals: 11/09/17 0013 Weight: 91.1 kg (200 lb 12.8 oz) Intake/Output Summary: (Last 24 hours) Intake/Output Summary (Last 24 hours) at 11/12/172040 Last data filed at 11/12/17 1843 Gross per 24 hour Intake 540 ml Output 150 ml Net 390 ml Stool Occurrence: 1 Physical Exam GENERAL: calm, cooperative, no acute distress HEAD and NECK: EOMI, PERRL, neck supple CARDIOVASCULAR: normal rate, regular rhythm, no murmurs, rubs, or gallops. PULMONARY: lungs clear to auscultation bilaterally - no rhonchi, rales, wheezing. Decreased breath sound in the right base with some dullness to percussion noted. ABDOMEN: soft, nontender, nondistended, no rebound or guarding GENITOURINARY: no dalal in place EXTREMITIES: extremities warm, well-perfused, no edema. Normal peripheral pulses. SKIN: no rashes on exposed skin Lab Review 24-hour labs: Results for orders placed or performed during the hospital encounter of (from the past 24 hour(s)) CBC AND DIFF Collection Time: 11/12/17 5:14 AM Result Value Ref Range White Blood Cells 7.2 4.5 - 11.0 K/UL RBC 4.05 4.0 - 5.0 M/UL Hemoglobin 11.3 (L) 12.0 - 15.0 GM/DL Hematocrit 34.6 (L) 36 - 45 % MCV 85.5 80 - 100 FL MCH 28.0 26 - 34 PG MCHC 32.7 32.0 - 36.0 G/DL RDW 15.0 11 - 15 % Platelet Count 327 150 - 400 K/UL MPV 7.2 7 - 11 FL Neutrophils 76 41 - 77 % Lymphocytes 16 (L) 24 - 44 % Monocytes 7 4 - 12 % Eosinophils 1 0 - 5 % Basophils 0 0 - 2 % Absolute Neutrophil Count 5.50 1.8 - 7.0 K/UL Absolute Lymph Count 1.10 1.0 - 4.8 K/UL Absolute Monocyte Count 0.50 0 - 0.80 K/UL Absolute Eosinophil Count 0.00 0 - 0.45 K/UL Absolute Basophil Count 0.00 0 - 0.20 K/UL COMPREHENSIVE METABOLIC PANEL Collection Time: 11/12/17 5:14 AM Result Value Ref Range Sodium 137 137 - 147 MMOL/L Potassium 3.8 3.5 - 5.1 MMOL/L Chloride 102 98 - 110 MMOL/L Glucose 114 (H) 70 - 100 MG/DL Blood Urea Nitrogen 20 7 - 25 MG/DL Creatinine 0.90 0.4 - 1.00 MG/DL Calcium 8.6 8.5 - 10.6 MG/DL Total Protein 5.9 (L) 6.0 - 8.0 G/DL Total Bilirubin 0.5 0.3 - 1.2 MG/DL Albumin 3.1 (L) 3.5 - 5.0 G/DL Alk Phosphatase 41 25 - 110 U/L AST (SGOT) 14 7 - 40 U/L CO2 28 21 - 30 MMOL/L ALT (SGPT) 14 7 - 56 U/L Anion Gap 7 3 - 12 eGFR Non >60 >60 mL/min eGFR >60 >60 mL/min Point of Care Testing (Last 24 hours) Glucose: (!) 114 (11/12/17 0514) Radiology and other Diagnostics Review: Pertinent radiology reviewed. Harley Niño MD * Christiano Lassiter RN - 11/12/2017 3:05 PM S[employer]IOR [employer] SALES CONSULTANT 1705 - Pt. left [id number] to GI lab. * Debora Hernandez APRN - 11/12/2017 2:39 PM SENIOR INTERNET SALES CONSULTANT Formatting of this note may be different from the original. 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 Mild increased FDG uptake associated with the right pleural effusion with maximum SUV of 3.77. No discrete metabolically active lymphadenopathy - 11/09/17: Right thoracentesis, cytology pending - CTS following, plan for discussion CTS tumor board, likely not a surgical candidate - GI consulted for EGD to evaluate any esophogeal involvement Hx of Thyroid Cancer - S/p thyroidectomy in 2016 - No adjuvant therapy Plan - Awaiting cytology results from thoracentesis on 11/09 - GI planning for EUS this afternoon - Need repeat biopsy of mediastinal mass, CTS planning for possible procedure tomorrow, 11/13 Heather Jay is a 72 y.o. female. No acute events overnight. Having some back pain this afternoon. Reports breathing is about the same. No fever or chills. Awaiting procedure this afternoon. Medications Scheduled Meds: docusate (COLACE) capsule 100 mg 100 mg Oral QDAY enalapril (VASOTEC) tablet 10 mg 10 mg Oral QDAY hydroCHLOROthiazide (HYDRODIURIL) tablet 12.5 mg 12.5 mg Oral QAM8 levothyroxine (SYNTHROID) tablet 137 mcg 137 mcg Oral QDAY 30 min before breakfast triamcinolone acetonide (KENALOG) 0.1 % topical ointment Topical BID verapamil SR (CALAN-SR) tablet 240 mg 240 mg Oral QDAY Continuous Infusions: PRN and Respiratory Meds:acetaminophen Q6H PRN, nystatin BID PRN, ondansetron ( ZOFRAN) IV Q6H PRN Objective Vital Signs: Last Filed Vital Signs: 24 Hour Range BP: 140/53 (11/12 1130) Temp: 36.8 C (98.2 F) (11/12 1130) Pulse: 156 (11/12 1130) Respirations: 18 PER MINUTE (11/12 1130) SpO2: 92 % (11/12 1130) O2 Delivery: Nasal Cannula (11/12 1130) BP: (121-152)/(48-64) Temp: [36.7 C (98 F)-37.2 C (98.9 F)] Pulse: [50-156] Respirations: [18 PER MINUTE] SpO2: [92 %-95 %] O2 Delivery: Nasal Cannula Intensity Pain Scale 0-10 (Pain 1): 4 (11/11/17 1615) Vitals: 11/09/17 0013 Weight: 91.1 kg (200 lb 12.8 oz) Intake/Output Summary: (Last 24 hours) Intake/Output Summary (Last 24 hours) at 11/12/17 1439 Last data filed at 11/12/17 1130 Gross per 24 hour Intake 790 ml Output 150 ml Net 640 ml Stool Occurrence: 1 Review of Systems: A 14 point review of systems was negative except for: Respiratory: positive for dyspnea on exertion Musculoskeletal: positive for back pain Physical Exam General appearance: Alert, cooperative, no distress Head: Normocephalic, atraumatic Eyes: PERRL Lungs: Non-labored Heart: regular rate and rhythm Abdomen: soft, non-tender. Extremities: No edema Neurologic: No focal deficits Lab Review 24-hour labs: Results for orders placed or performed during the hospital encounter of (from the past 24 hour(s)) CBC AND DIFF Collection Time: 11/12/17 5:14 AM Result Value Ref Range White Blood Cells 7.2 4.5 - 11.0 K/UL RBC 4.05 4.0 - 5.0 M/UL Hemoglobin 11.3 (L) 12.0 - 15.0 GM/DL Hematocrit 34.6 (L) 36 - 45 % MCV 85.5 80 - 100 FL MCH 28.0 26 - 34 PG MCHC 32.7 32.0 - 36.0 G/DL RDW 15.0 11 - 15 % Platelet Count 327 150 - 400 K/UL MPV 7.2 7 - 11 FL Neutrophils 76 41 - 77 % Lymphocytes 16 (L) 24 - 44 % Monocytes 7 4 - 12 % Eosinophils 1 0 - 5 % Basophils 0 0 - 2 % Absolute Neutrophil Count 5.50 1.8 - 7.0 K/UL Absolute Lymph Count 1.10 1.0 - 4.8 K/UL Absolute Monocyte Count 0.50 0 - 0.80 K/UL Absolute Eosinophil Count 0.00 0 - 0.45 K/UL Absolute Basophil Count 0.00 0 - 0.20 K/UL COMPREHENSIVE METABOLIC PANEL Collection Time: 11/12/17 5:14 AM Result Value Ref Range Sodium 137 137 - 147 MMOL/L Potassium 3.8 3.5 - 5.1 MMOL/L Chloride 102 98 - 110 MMOL/L Glucose 114 (H) 70 - 100 MG/DL Blood Urea Nitrogen 20 7 - 25 MG/DL Creatinine 0.90 0.4 - 1.00 MG/DL Calcium 8.6 8.5 - 10.6 MG/DL Total Protein 5.9 (L) 6.0 - 8.0 G/DL Total Bilirubin 0.5 0.3 - 1.2 MG/DL Albumin 3.1 (L) 3.5 - 5.0 G/DL Alk Phosphatase 41 25 - 110 U/L AST (SGOT) 14 7 - 40 U/L CO2 28 21 - 30 MMOL/L ALT (SGPT) 14 7 - 56 U/L Anion Gap 7 3 - 12 eGFR Non >60 >60 mL/min eGFR >60 >60 mL/min Point of Care Testing (Last 24 hours) Glucose: (!) 114 (11/12/17 0514) Radiology and other Diagnostics Review: Pertinent radiology reviewed. Debora Hernandez, [facility] [phone] * Dianne Cazares, RT - 11/12/2017 10:20 AM SENIOR INTER[employer] SALES CONSULTANT Formatting of this note may be different from the original. RESPIRATORY THERAPY ADULT PROTOCOL EVALUATION RESPIRATORY PROTOCOL PLAN Medications Note: If indicated by protocol, medication orders will be placed by therapist. Procedures Oxygen/Humidity: O2 to keep SpO2 > 92% Monitoring: Pulse oximetry BID & PRN PATIENT EVALUATION RESULTS Chart Review * Pulmonary Hx: No pulmonary diagnosis OR no smoking hx * Surgical Hx: No surgery OR last surgery > 6 weeks ago OR trach/stoma (BA) * Chest X-Ray: Clear OR not available (no current CXR) * PFT/Oxygenation: FEV1, PEFR < 70% OR Pa02 < 70 RA OR Sp02 <92% RA OR Fi02 > 0.21 to keep Sp02 > 92% OR < 24 hours post-op (02 & oxim) OR chronic C02 retention (C02) Patient Assessment * Respiratory Pattern: Regular pattern and rate OR good chest excursion with deep breathing * Breath Sounds: Clear and able to auscultate bases posteriorly * Cough / Sputum: Strong, effective cough OR nonproductive * Mental Status: Alert, oriented, cooperative * Activity Level: Ambulatory with assistance Priority Index Total Points: 3 Points * Priority Index: 1 PRIORITY INDEX GUIDELINES* Priority Points 1 0-9 points 2 9-18 points 3 > 18 points + Pulm Dx or Home Rx *Higher points indicate higher acuity. Therapist: Dianne Cazares, RT Date: 11/12/2017 [place] AC=Airway clearance AM=Aerosolized medication BA=[place] aerosol DB&C=Deep breathe & cough FEV1=Forced expiratory volume in first second) IC=Inspiratory capacity LE=Lung expansion MDI=Metered dose inhaler Neb=Nebulizer O2=Oxygen Oxim=Oximetry PEFR=Peak expiratory flow rate COMMUNICATIONS SUPERINTENDENT=Rapid Response Team * Kane Castellano MD - 11/11/2017 1:10 PM SENIOR INTER[employer] SALES CONSULTANT Formatting of this note may be different from the original. General Progress Note Today's Date: 11/11/2017 Admission Date: 11/09/2017 LOS: 2 days Assessment/Plan: Active Problems: Mediastinal mass Community acquired pneumonia Atelectasis of right lung Pleural effusion on right Acute hypoxemic respiratory failure (HCC) Ms. 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 She presented to [facility] in [place], [place] with dyspnea and dry cough, found to have increased right-sided pleural effusion and atelectasis, transferred to [facility]. S/p thoracentesis 11/09 with improvement in dyspnea. Planning on obtaining more tissue for diagnosis, with EGD/EUS planned for tomorrow, 11/12. 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 - S/p thoracentesis 11/09; exudate by Light's (pH 7.45, protein 3.6, LDH 398, alb 2.4, gluc 102; 2460 RBCs, 1670 WBCs, 11% PMNs, 76% lymphs, cytology pending. 800 cc removed. Plan: - Oncology consulted, recommending repeat tissue biopsy - GI consulted, planning on EGD/EUS tomorrow to determine the degree of involvement of esophagus and its surrounding tissue with the medistinal mass; will make NPO @ [facility] tonight - CTS consulted, noting mass in likely unresectable. Will present at tumor board on 11/15. Pleural effusion on right - s/p thora 11/09, 800 cc removed with improvement in dyspnea. Concerning for malignant effusion. Given LVQ x1 on admission but no further evidence of infection. - F/u pending fluid cx, cytology - Observe off of antibiotics - If worsening dyspnea tomorrow, will repeat CXR to assess for increasing effusion/re-accumulation Acute hypoxemic respiratory failure - Due to pleural effusion, most likely. No baseline O2 requirement. Here, RVP, Legionella, S.pneumo urine ag negative. BNP normal, trop negative.. CXR showing atelectasis and large R effusion on 11/09. Improving after thora - Oxygen supplementation as needed, wean as able. - Incentive spirometry Rash under R breast - Likely contact dermatitis from tele leads - Trial of topical triamcinolone today Hypertension - Continue home enalapril, verapamil, HCTZ Hypothyroidism - Continue home levothyroxine Mood disorder - patient was taking estradiol for mood changes, will hold for now given her risk of VTE Diet: regular, NPO@ [facility] for EGD tomorrow DVT prophylaxis: lmwh - hold tonight for EGD/EUS tomorrow Code status: Full code Hero Castellano MD Hospitalist Pager [phone] Heather Jay is a 72 y.o. female. No events overnight. Woke up at 5 am and took a shower, but more slightly more dyspneic after that. Decreased appetite this a.m. as well. We reviewed the recommendations of CT surgery and plan for EGD/EUS tomorrow. Reviewed her chest imaging with her at bedside. Review of systems: Denies any fever, chills, abdominal pain, nausea vomiting, diarrhea, leg swelling. Medications Scheduled Meds: docusate (COLACE) capsule 100 mg 100 mg Oral QDAY enalapril (VASOTEC) tablet 10 mg 10 mg Oral QDAY hydroCHLOROthiazide (HYDRODIURIL) tablet 12.5 mg 12.5 mg Oral QAM8 levothyroxine (SYNTHROID) tablet 137 mcg 137 mcg Oral QDAY 30 min before breakfast triamcinolone acetonide (KENALOG) 0.1 % topical ointment Topical BID verapamil SR (CALAN-SR) tablet 240 mg 240 mg Oral QDAY Continuous Infusions: PRN and Respiratory Meds:acetaminophen Q6H PRN, nystatin BID PRN, ondansetron ( ZOFRAN) IV Q6H PRN Objective Vital Signs: Last Filed Vital Signs: 24 Hour Range BP: 101/79 (11/11 1032) Temp: 37 C (98.6 F) (11/11 1032) Pulse: 91 (11/11 1032) Respirations: 18 PER MINUTE (11/11 1032) SpO2: 93 % (11/11 1032) O2 Delivery: Nasal Cannula (11/11 1032) BP: (101-134)/(47-79) Temp: [36.8 C (98.2 F)-37.2 C (99 F)] Pulse: [57-91] Respirations: [18 PER MINUTE] SpO2: [93 %-95 %] O2 Delivery: Nasal Cannula Intensity Pain Scale 0-10 (Pain 1): 6 (11/11/17 1147) Vitals: 11/09/17 0013 Weight: 91.1 kg (200 lb 12.8 oz) Intake/Output Summary: (Last 24 hours) Intake/Output Summary (Last 24 hours) at 11/11/17 1311 Last data filed at 11/11/17 1033 Gross per 24 hour Intake 572 ml Output 550 ml Net 22 ml Stool Occurrence: 1 (per pt.) Physical Exam GENERAL: calm, cooperative, no acute distress HEAD and NECK: EOMI, PERRL, neck supple CARDIOVASCULAR: normal rate, regular rhythm, no murmurs, rubs, or gallops. PULMONARY: lungs clear to auscultation bilaterally - no rhonchi, rales, wheezing. Decreased breath sound in the right base with some dullness to percussion noted. ABDOMEN: soft, nontender, nondistended, no rebound or guarding GENITOURINARY: no dalal in place EXTREMITIES: extremities warm, well-perfused, no edema. Normal peripheral pulses. SKIN: no rashes on exposed skin Lab Review 24-hour labs: Results for orders placed or performed during the hospital encounter of (from the past 24 hour(s)) CBC AND DIFF Collection Time: 11/11/17 5:33 AM Result Value Ref Range White Blood Cells 7.8 4.5 - 11.0 K/UL RBC 4.42 4.0 - 5.0 M/UL Hemoglobin 12.6 12.0 - 15.0 GM/DL Hematocrit 36.6 36 - 45 % MCV 82.8 80 - 100 FL MCH 28.4 26 - 34 PG MCHC 34.3 32.0 - 36.0 G/DL RDW 15.4 (H) 11 - 15 % Platelet Count 373 150 - 400 K/UL MPV 7.0 7 - 11 FL Neutrophils 72 41 - 77 % Lymphocytes 20 (L) 24 - 44 % Monocytes 7 4 - 12 % Eosinophils 1 0 - 5 % Basophils 0 0 - 2 % Absolute Neutrophil Count 5.60 1.8 - 7.0 K/UL Absolute Lymph Count 1.50 1.0 - 4.8 K/UL Absolute Monocyte Count 0.50 0 - 0.80 K/UL Absolute Eosinophil Count 0.10 0 - 0.45 K/UL Absolute Basophil Count 0.00 0 - 0.20 K/UL COMPREHENSIVE METABOLIC PANEL Collection Time: 11/11/17 5:33 AM Result Value Ref Range Sodium 137 137 - 147 MMOL/L Potassium 3.5 3.5 - 5.1 MMOL/L Chloride 100 98 - 110 MMOL/L Glucose 114 (H) 70 - 100 MG/DL Blood Urea Nitrogen 16 7 - 25 MG/DL Creatinine 0.76 0.4 - 1.00 MG/DL Calcium 8.7 8.5 - 10.6 MG/DL Total Protein 6.4 6.0 - 8.0 G/DL Total Bilirubin 0.6 0.3 - 1.2 MG/DL Albumin 3.4 (L) 3.5 - 5.0 G/DL Alk Phosphatase 43 25 - 110 U/L AST (SGOT) 15 7 - 40 U/L CO2 29 21 - 30 MMOL/L ALT (SGPT) 20 7 - 56 U/L Anion Gap 8 3 - 12 eGFR Non >60 >60 mL/min eGFR >60 >60 mL/min Point of Care Testing (Last 24 hours) Glucose: (!) 114 (11/11/17 0533) Radiology and other Diagnostics Review: Pertinent radiology reviewed. Kane Castellano MD * Loretta Chaudhry - 11/10/2017 8:36 PM SENIOR [employer] SALES CONSULTANT Med pvt paged regarding pt increased concern about rash under right breast and on chest. Rash is warm to touch and sensitive. Pt c/o constant burning sensation. Orders placed for nystatin topical cream. This RN routinely monitoring. * Montez Roger, AC - 11/10/2017 7:21 PM SENIOR INTER[employer] SALES CONSULTANT Patient called this RN into room to assess newly discovered rash under right breast. Rash is slightly warmer than surrounding skin upon assessment. Patient states rash is a slight burning sensation but not itching. Med Private paged. Order to continue to monitor. * Kane Castellano MD - 11/10/2017 12:37 PM SENIOR INTERNET SALES CONSULTANT Formatting of this note may be different from the original. General Progress Note Today's Date: 11/10/2017 Admission Date: 11/09/2017 LOS: 1 day Assessment/Plan: Active Problems: Mediastinal mass Community acquired pneumonia Atelectasis of right lung Pleural effusion on right Acute hypoxemic respiratory failure (HCC) Ms. 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 Who presented to [facility] in [place], [place] with dyspnea and dry cough,found to have increased right-sided pleural effusion and atelectasis. S/p thoracentesis 11/09 with improvement in dyspnea. Planning on CTS consult, obtaining more tissue for diagnosis/ EGD/EUS on Sunday. 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 - S/p thoracentesis 11/09; exudate by Light's (pH 7.45, protein 3.6, LDH 398, alb 2.4, gluc 102; 2460 RBCs, 1670 WBCs, 11% PMNs, 76% lymphs, cytology pending. 800 cc removed. Plan: - Oncology consulted, recommending repeat tissue biopsy - GI consulted, planning on EGD/EUS on 11/12 to determine the degree of involvement of esophagus and its surrounding tissue with the medistinal mass; will make NPO @ [facility] tomorrow - CTS consulted, recommendations pending Pleural effusion on right - s/p thora 11/09, with improvement in dyspnea. Concerning for malignant effusion - F/u pending fluid cx, cytology - Stop levofloxacin - no clear evidence of infection. Observe off of abx. Acute hypoxemic respiratory failure - Due to pleural effusion, most likely. No baseline O2 requirement. Here, RVP, Legionella, S.pneumo urine ag negative. BNP normal, trop negative.. CXR showing atelectasis and large R effusion on 11/09. Improving after thora - Oxygen supplementation as needed, wean as able. - Incentive spirometry Hypertension - Continue home enalapril, verapamil, HCTZ Hypothyroidism - Continue home levothyroxine Mood disorder - patient was taking estradiol for mood changes, will hold for now given her risk of VTE Diet: regular DVT prophylaxis: lmwh Code status: Full code Hero Castellano MD Hospitalist Pager [phone] Heather Jay is a 72 y.o. female. No events overnight. Today she reports that her dyspnea has improved after undergoing thoracentesis yesterday. Did have some back pain related to the thoracentesis which is better today. Eating and drinking well. Having already ambulated around the unit as of this morning. We reviewed her hospital course and plan for ongoing testing while inpatient. Review of systems: Denies any fever, chills, abdominal pain, nausea vomiting, diarrhea Medications Scheduled Meds: docusate (COLACE) capsule 100 mg 100 mg Oral QDAY enalapril (VASOTEC) tablet 10 mg 10 mg Oral QDAY hydroCHLOROthiazide (HYDRODIURIL) tablet 12.5 mg 12.5 mg Oral QAM8 levofloxacin (LEVAQUIN) 750 mg/150 mL IVPB 750 mg Intravenous Q24H* levothyroxine (SYNTHROID) tablet 137 mcg 137 mcg Oral QDAY 30 min before breakfast verapamil SR (CALAN-SR) tablet 240 mg 240 mg Oral QDAY Continuous Infusions: PRN and Respiratory Meds:acetaminophen Q6H PRN, ondansetron (ZOFRAN) IV Q6H PRN Objective Vital Signs: Last Filed Vital Signs: 24 Hour Range BP: 115/59 (11/10 630) Temp: 37.2 C (99 F) (11/10 630) Pulse: 98 (11/10 630) Respirations: 18 PER MINUTE (11/10 630) SpO2: 94 % (11/10 630) O2 Delivery: Nasal Cannula (11/10 630) BP: (115-133)/(50-65) Temp: [36.8 C (98.2 F)-37.2 C (99 F)] Pulse: [83-98] Respirations: [17 PER MINUTE-18 PER MINUTE] SpO2: [94 %-97 %] O2 Delivery: Nasal Cannula Vitals: 11/09/17 0013 Weight: 91.1 kg (200 lb 12.8 oz) Intake/Output Summary: (Last 24 hours) Intake/Output Summary (Last 24 hours) at 11/10/17 1237 Last data filed at 11/10/17 0935 Gross per 24 hour Intake 607 ml Output 525 ml Net 82 ml Stool Occurrence: 1 Physical Exam GENERAL: calm, cooperative, no acute distress HEAD and NECK: EOMI, PERRL, neck supple CARDIOVASCULAR: normal rate, regular rhythm, no murmurs, rubs, or gallops. PULMONARY: lungs clear to auscultation bilaterally - no rhonchi, rales, wheezing ABDOMEN: soft, nontender, nondistended, no rebound or guarding GENITOURINARY: no dalal in place EXTREMITIES: extremities warm, well-perfused, no edema. Normal peripheral pulses. SKIN: no rashes on exposed skin Lab Review 24-hour labs: Results for orders placed or performed during the hospital encounter of (from the past 24 hour(s)) CBC AND DIFF Collection Time: 11/10/17 4:36 AM Result Value Ref Range White Blood Cells 7.5 4.5 - 11.0 K/UL RBC 4.16 4.0 - 5.0 M/UL Hemoglobin 11.8 (L) 12.0 - 15.0 GM/DL Hematocrit 35.4 (L) 36 - 45 % MCV 85.0 80 - 100 FL MCH 28.2 26 - 34 PG MCHC 33.2 32.0 - 36.0 G/DL RDW 15.0 11 - 15 % Platelet Count 315 150 - 400 K/UL MPV 7.4 7 - 11 FL Neutrophils 76 41 - 77 % Lymphocytes 16 (L) 24 - 44 % Monocytes 7 4 - 12 % Eosinophils 1 0 - 5 % Basophils 0 0 - 2 % Absolute Neutrophil Count 5.70 1.8 - 7.0 K/UL Absolute Lymph Count 1.20 1.0 - 4.8 K/UL Absolute Monocyte Count 0.60 0 - 0.80 K/UL Absolute Eosinophil Count 0.10 0 - 0.45 K/UL Absolute Basophil Count 0.00 0 - 0.20 K/UL COMPREHENSIVE METABOLIC PANEL Collection Time: 11/10/17 4:36 AM Result Value Ref Range Sodium 135 (L) 137 - 147 MMOL/L Potassium 3.4 (L) 3.5 - 5.1 MMOL/L Chloride 100 98 - 110 MMOL/L Glucose 128 (H) 70 - 100 MG/DL Blood Urea Nitrogen 14 7 - 25 MG/DL Creatinine 0.81 0.4 - 1.00 MG/DL Calcium 8.3 (L) 8.5 - 10.6 MG/DL Total Protein 5.7 (L) 6.0 - 8.0 G/DL Total Bilirubin 0.8 0.3 - 1.2 MG/DL Albumin 3.2 (L) 3.5 - 5.0 G/DL Alk Phosphatase 41 25 - 110 U/L AST (SGOT) 14 7 - 40 U/L CO2 28 21 - 30 MMOL/L ALT (SGPT) 20 7 - 56 U/L Anion Gap 7 3 - 12 eGFR Non >60 >60 mL/min eGFR >60 >60 mL/min Point of Care Testing (Last 24 hours) Glucose: (!) 128 (11/10/17 0436) Radiology and other Diagnostics Review: Pertinent radiology reviewed. Kane Castellano MD * Federica Goff, PT - 11/09/2017 2:40 PM SENIOR [employer] SALES CONSULTANT PHYSICAL THERAPY NOTE Per discussion with RN and OT patient is up ad susanna. Per OT Patient denies changes from baseline mobility and reports no history of balance loss or falls in the last three months. Patient endorses no concerns with mobility at home. Currently, the patient is ambulating in room/ on unit without difficulty. Physical therapy services will be discontinued at this time, please re-consult if the patient has a change in mobility status. Therapist: Federica Goff, PT Date: 11/09/2017 * Miri Thao - 11/09/2017 1:39 PM SENIOR [employer] SALES CONSULTANT OCCUPATIONAL THERAPY NO TREATMENT NOTE Patient denies changes from baseline ADLs and functional mobility and reports no history of balance loss or falls in the last three months. Patient has not had a procedure or surgery that would make getting dressed difficult, including putting on socks and shoes. Patient has not demonstrated or reported new difficulties with vision when completing functional tasks. Patient endorses no concerns with functional skills at home. Currently, the patient is ambulating (in room/ on unit) without difficulty. Encouraged patient to continue to perform functional skills/ADLs while in the hospital and discussed the ability for the patient to complete their ADL s with the bedside nursing staff. Occupational therapy services will be discontinued at this time, please re-consult if the patient has a change in functional status. Therapist: Miri Thao OTR/L 1214 Date: 11/09/2017 * Marisa Bush - 11/09/2017 11:24 AM SENIOR INTERNET SALES CONSULTANT Pt left IR in bed with [facility] personal. * Yasemin Barlow RN - 11/09/2017 11:07 AM SENIOR INTERNET SALES CONSULTANT Report called to [facility] No questions and concerns. Immediate chest xray read by Dr. Hyatt. Pt. Cleared to go back to home unit. * Reid Castillo RN - 11/09/2017 9:42 AM SENIOR INTERNET SALES CONSULTANT Vital signs q 15 minutes x 4 then resume prior order. Bed rest until second chest x-ray cleared by physician. Bed rest with bathroom privileges x 24 hours then resume activity as tolerated. NPO until second chest x-ray cleared by physician. Remove dressing from catheter site in 24 hours. Chest tube maintenance if applicable. Imaging: Order and complete inspiration/expiration chest X-ray immediately post procedure and in one hour. POST-PROCEDURE ACTIVITY: Avoid strenuous activity and do not lift more than 10 lbs. for one week after the procedure. POST-PROCEDURE SITE CARE: Keep the bandage dry. You may remove it after 24 hours. You may shower in 24 hours, after the bandage is removed. Do not submerge the site underwater for 1 week (no swimming/hot tub, etc.) Be sure your hands are clean when touching near the site. Do not use ointments, creams or powders on the puncture site. DIET/MEDICATIONS: You may resume your previous diet after the radiologist has determined that you do not have a pneumothorax (collapsed lung) and you are ready to be discharged. If you received sedation or narcotic pain medications, avoid any foods or beverages containing alcohol for at least 24 hours after the procedure. Please see the Medication Reconciliation sheet for instructions regarding resuming you home medications. WHEN TO CALL THE DOCTOR: Call 911 if you develop severe shortness of breath or chest pain. This may indicate a collapsed lung has occurred. Otherwise, call the numbers below if you have the following: Bright red blood has soaked the bandage over your puncture site. You have signs of infection: Chills, fever greater than 101?F Redness, swelling or warmth at the puncture site Pus draining from the puncture site. * Faviola Serrato RN - 11/09/2017 3:44 AM SENIOR INTERNET SALES CONSULTANT Paged regarding a 2.15 second pause. Patient is asymptomatic at this time. Dr. Owen returned page will order an EKG. * Faviola Serrato RN - 11/09/2017 12:59 AM SENIOR INTERNET SALES CONSULTANT Patient arrived to room # (3747) via cart accompanied by EMS. Patient transferred to the bed without assistance. Bedside safety checks completed. Initial patient assessment completed, refer to flowsheet for details. Admission skin assessment completed by: AC Hamilton and AC Morales Pressure Injury Present on Hospital Admission (within 24 hours): Yes 1. Occiput: No 2. Ear: No 3. Scapula: No 4. Spinous Process: No 5. Shoulder: No 6. Elbow: No 7. Iliac Crest: No 8. Sacrum/Coccyx: No 9. Ischial Tuberosity: No 10. Trochanter: No 11. Knee: No 12. Malleolus: No 13. Heel: No 14. Toes: No 15. Assessed for device associated injury Yes 16. Nursing Nutrition Assessment Completed Yes See Doc Flowsheet for additional wound details. INTERVENTIONS: in this encounter H&P Notes * Jayson Lange MD - 11/14/2017 5:40 PM SENIOR INTERNET SALES CONSULTANT Formatting of this note may be different from the original. Admission History and Physical Examination Name: Jonathon Jay Admission Date: 11/09/2017 Assessment/Plan: Principal Problem: Lung mass Active Problems: Mediastinal mass Community acquired pneumonia Atelectasis of right lung Pleural effusion on right Acute hypoxemic respiratory failure (HCC) Ms. 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 She presented to [facility] in [place], [place] with dyspnea and dry cough, found to have increased right-sided pleural effusion and atelectasis, transferred to [facility]. S/p thoracentesis 11/09 with improvement in dyspnea. Planning on obtaining more tissue for diagnosis, with EGD/EUS planned for 11/12. 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 Workup: - S/p biopsy 10/26/17 in [place], [place] with path review of [facility] - possibly a low grade sarcoma, but cannot r/o other entities and tissue block has been exhausted - more tissue needed - PET/CT 11/09/17: Large hypermetabolic mass occupying the majority of the right hemithorax; mild FDG uptake within the right pleural effusion suspicious for malignant effusion. - S/p thoracentesis 11/09; exudate by [facility] (pH 7.45, protein 3.6, LDH 398, alb 2.4, gluc 102; 2460 RBCs, 1670 WBCs, 11% PMNs, 76% lymphs, cytology pending. 800 cc removed. > Oncology consulted, recommending repeat tissue biopsy > GI consulted, planning on EGD/EUS 11/12 to determine the degree of involvement of esophagus and its surrounding tissue with the medistinal mass > IR reports mass may be better bx by bronchoscopy route - will d/w CTS, CTS recommends pulmonary consult CTS noting mass in likely unresectable. Will present at tumor board on 11/15. > pulmonary consult placed 11/13, EBUS on 11/14 Pleural effusion on right - s/p thora 11/09, 800 cc removed with improvement in dyspnea. Concerning for malignant effusion. Given LVQ x1 on admission but no further evidence of infection. - F/u pending fluid cx, cytology (Lymphocyte predominant exudate) - Observe off of antibiotics - repeat cxr am 11/13 shows increasing fluid - Will inquire with pulmonary serial thoracentesis for symptomatic relief versus placement of Pleurx drain Acute hypoxemic respiratory failure - Due to pleural effusion, most likely. - No baseline O2 requirement. - RVP, Legionella, S.pneumo urine ag negative. - BNP normal, trop negative. - CXR showing atelectasis and large R effusion on 11/09. Improving after thoracentesis > Oxygen supplementation as needed, wean as able. > Incentive spirometry > Consider serial thoracentesis versus Pleurx drain placement CV Hypertension - Hold home enalapril, verapamil, HCTZ GI >NPO post anesthesia > Advance to clear - Creat 0.8 11/14 > Monitor I&O ENDO Hypothyroidism - Thyroid cancer s/p thyroidectomy in 2015 > Continue home levothyroxine HEME > Monitor CBC MSK Rash under R breast - Likely contact dermatitis from tele leads - Improving with topical triamcinolone Psych Mood disorder - patient was taking estradiol for mood changes, will hold for now given her risk of VTE Diet: NPO post procedure DVT prophylaxis: SCDs only until procedure Code status: Full code Discussed with Dr. Erik Encarnacion MD PGY1 Emergency Medicine [id number] ICU Attending Note Jonathon Jay Is critically ill with: Principal Problem: Lung mass Active Problems: Mediastinal mass Community acquired pneumonia Atelectasis of right lung Pleural effusion on right Acute hypoxemic respiratory failure (HCC) I spent 40 minutes (excluding time spent performing or supervising any procedures) providing and personally directing critical care services which was discussed with the ICU team including: Systems review and physical examination Serial evaluation of hemodynamic data Serial evaluation of respiratory status Review and management of ICU prophylaxis and core measures Review of laboratory data Review of telemetry data Review of imaging studies Review of medications Fluid and electrolyte management Coordination of care between consulting services Arrived on the ICU on NRB in no respiratory distress. Bleeding reported from EBUS sites only and less than 50 cc total. Will monitor in ICU for respiratory decompensation. DOS 11-14- Staff name: Jayson Lange MD Date: 11/15/2017 History of Present Illness: Jonathon Jay is a 72 y.o. 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 The patient presents after bronchoscopy with ultrasound for additional biopsy. FNA of lymph nodes was performed. It was noted that there was intrinsic compression of the right mainstem bronchus. The airway was nearly occluded. Estimated blood loss was 50 mL. She was taken to the MICU for prolonged time of hypoxia requiring bagging after extubation. At bedside in the MICU, she is alert and oriented to the situation. She endorses hunger but denies nausea, abdominal pain, chest pain, diarrhea, headache, fever, or shortness of breath. Past Medical History: Diagnosis Date HTN (hypertension) Mediastinal mass 10/26/2017 INNA (obstructive sleep apnea) TB (tuberculosis) as a toddler, treated at that time Thyroid cancer (HCC) 2016 Past Surgical History: Procedure Laterality Date UPPER GASTROINTESTINAL ENDOSCOPY N/A 11/12/2017 ESOPHAGOGASTRODUODENOSCOPY ENDOSCOPIC ULTRASOUND performed by Michael Wade MD at ENDO/GI CHOLECYSTECTOMY KNEE SURGERY THYROIDECTOMY TONSILLECTOMY Family history reviewed; non-contributory Social History Social History Marital status: Spouse name: N/A Number of children: N/A Years of education: N/A Social History Main Topics Smoking status: Never Smoker Smokeless tobacco: Never Used Alcohol use No Drug use: No Sexual activity: Not on file Other Topics Concern Not on file Social History Narrative No narrative on file Immunizations (includes history and patient reported): There is no immunization history on file for this patient. Allergies: Demerol [meperidine] Medications: Prescriptions Prior to Admission Medication Sig calcium carbonate/vitamin D-3 (OSCAL-500+D) 1250 mg/200 unit tablet Take 1 tablet by mouth daily. Calcium Carb 1250mg delivers 500mg elemental Ca enalapril (VASOTEC) 10 mg tablet Take 10 mg by mouth daily. estradiol (ESTRACE) 0.5 mg tablet Take 0.5 mg by mouth daily. hydroCHLOROthiazide (HYDRODIURIL) 12.5 mg tablet Take 12.5 mg by mouth every morning. levothyroxine (SYNTHROID) 137 mcg tablet Take 137 mcg by mouth daily 30 minutes before breakfast. verapamil SR (CALAN-SR) 240 mg tablet Take 240 mg by mouth daily. vitamins, B complex tab Take 1 tablet by mouth daily. vitamins, multiple (DAILY MULTI-VITAMIN) tablet Take 1 tablet by mouth daily. Review of Systems: Constitutional: Denies fever, headache Respiratory: Denies shortness of breath Cardiovascular: Denies chest pain Gastrointestinal: Denies abdominal pain, nausea, vomiting Genitourinary: Denies dysuria Musculoskeletal: Denies extremity pain Physical Exam: Vital Signs: Last Filed In 24 Hours Vital Signs: 24 Hour Range BP: 119/65 (11/14 1733) Temp: 36.7 C (98 F) (11/14 1733) Pulse: 86 (11/14 1733) Respirations: 23 PER MINUTE (11/14 1323) SpO2: 92 % (11/14 173) O2 Delivery: Simple Mask (11/14 1732) SpO2 Pulse: 86 (11/14 1732) BP: (115-140)/(53-65) Temp: [36.6 C (97.9 F)-37.3 C (99.1 F)] Pulse: [79-87] Respirations: [18 PER MINUTE-23 PER MINUTE] SpO2: [92 %-94 %] O2 Delivery: Simple Mask Intensity Pain Scale 0-10 (Pain 1): 6 (11/14/17 1324) General: Alert, cooperative, no distress, appears stated age Head: Normocephalic, without obvious abnormality, atraumatic Eyes: Conjunctivae/corneas clear. PERRL, EOMs intact. Fundi benign Throat: Lips, mucosa and tongue normal. Teeth and gums normal Neck: Supple, trachea midline Lungs: No breath sounds auscultated of the left chest Chest wall: No tenderness or deformity. Abdomen: Soft, non tender to palpation Extremities: No tenderness or swelling Neurologic: Grossly intact Lab/Radiology/Other Diagnostic Tests: 24-hour labs: Results for orders placed or performed during the hospital encounter of (from the past 24 hour(s)) CBC AND DIFF Collection Time: 11/14/17 5:34 AM Result Value Ref Range White Blood Cells 8.1 4.5 - 11.0 K/UL RBC 4.58 4.0 - 5.0 M/UL Hemoglobin 12.6 12.0 - 15.0 GM/DL Hematocrit 39.3 36 - 45 % MCV 86.0 80 - 100 FL MCH 27.6 26 - 34 PG MCHC 32.1 32.0 - 36.0 G/DL RDW 15.4 (H) 11 - 15 % Platelet Count 425 (H) 150 - 400 K/UL MPV 6.9 (L) 7 - 11 FL Neutrophils 71 41 - 77 % Lymphocytes 21 (L) 24 - 44 % Monocytes 6 4 - 12 % Eosinophils 1 0 - 5 % Basophils 1 0 - 2 % Absolute Neutrophil Count 5.80 1.8 - 7.0 K/UL Absolute Lymph Count 1.70 1.0 - 4.8 K/UL Absolute Monocyte Count 0.50 0 - 0.80 K/UL Absolute Eosinophil Count 0.10 0 - 0.45 K/UL Absolute Basophil Count 0.00 0 - 0.20 K/UL COMPREHENSIVE METABOLIC PANEL Collection Time: 11/14/17 5:34 AM Result Value Ref Range Sodium 137 137 - 147 MMOL/L Potassium 3.5 3.5 - 5.1 MMOL/L Chloride 100 98 - 110 MMOL/L Glucose 119 (H) 70 - 100 MG/DL Blood Urea Nitrogen 20 7 - 25 MG/DL Creatinine 0.80 0.4 - 1.00 MG/DL Calcium 9.4 8.5 - 10.6 MG/DL Total Protein 6.6 6.0 - 8.0 G/DL Total Bilirubin 0.4 0.3 - 1.2 MG/DL Albumin 3.4 (L) 3.5 - 5.0 G/DL Alk Phosphatase 49 25 - 110 U/L AST (SGOT) 13 7 - 40 U/L CO2 29 21 - 30 MMOL/L ALT (SGPT) 17 7 - 56 U/L Anion Gap 8 3 - 12 eGFR Non >60 >60 mL/min eGFR >60 >60 mL/min PROTIME INR (PT) Collection Time: 11/14/17 12:30 PM Result Value Ref Range INR 1.2 0.8 - 1.2 TYPE & CROSSMATCH Collection Time: 11/14/17 12:30 PM Result Value Ref Range Units Ordered 0 Crossmatch Expires 11/17/2017 Record Check 2ND TYPE REQUIRED ABO/RH(D) O POS Antibody Screen NEG Glucose: (!) 119 (11/14/17 0534) Pertinent radiology reviewed. Amadou Encarnacion MD PGY1 Emergency Medicine Pager [phone] * Kaushik Gutierrez MD - 11/14/2017 3:34 PM SENIOR INTERNET SALES CONSULTANT Formatting of this note may be different from the original. Pre Procedure History and Physical/Sedation Plan Name:Jonathon Jay :1945 Age: 72 y.o. Admission Date: 11/09/2017 Days Admitted: LOS: 5 days Procedure Date: 11/14/2017 Planned Procedure(s): Pulmonary: endobronchial ultrasound Sedation/Medication Plan: General Anesthesia Discussion/Reviews: Physician has discussed risks and alternatives of this type of sedation and above planned procedures with patient Chief Complaint: Inpatient endo consult note reviewed. R lung mass, sarcoma, more tissue required for molecular studies Previous Anesthetic/Sedation History: Per anesthesia Allergies: Demerol [meperidine] Medications: Scheduled Meds: [NOV Hold] docusate (COLACE) capsule 100 mg 100 mg Oral QDAY [Nov] enalapril (VASOTEC) tablet 10 mg 10 mg Oral QDAY [Nov] hydroCHLOROthiazide (HYDRODIURIL) tablet 12.5 mg 12.5 mg Oral QAM8 [Nov] levothyroxine (SYNTHROID) tablet 137 mcg 137 mcg Oral QDAY 30 min before breakfast [Nov] triamcinolone acetonide (KENALOG) 0.1 % topical ointment Topical BID [Nov] verapamil SR (CALAN-SR) tablet 240 mg 240 mg Oral QDAY Continuous Infusions: PRN and Respiratory Meds:[Nov] acetaminophen Q6H PRN, [Nov] cyclobenzaprine TID PRN, nystatin BID PRN, [NOV Hold] ondansetron (ZOFRAN) IV Q6H PRN Vital Signs: Last Filed Vital Signs: 24 Hour Range BP: 133/55 (11/14 1323) Temp: 36.8 C (98.2 F) (11/14 1323) Pulse: 80 (11/14 1323) Respirations: 23 PER MINUTE (11/14 1323) SpO2: 94 % (11/14 1323) O2 Delivery: Nasal Cannula (11/14 1322) BP: (115-140)/(53-64) Temp: [36.6 C (97.9 F)-37.3 C (99.1 F)] Pulse: [79-87] Respirations: [18 PER MINUTE-23 PER MINUTE] SpO2: [92 %-94 %] O2 Delivery: Nasal Cannula NPO Status: Airway: per anesthesia Anesthesia Classification: ASA III (A patient with a severe systemic disease that limits activity, but is not incapacitating) NPO Status: Acceptable Preganancy Status: Not Lab/Radiology/Other Diagnostic Tests Labs: Relevant labs reviewed Kaushik Gutierrez MD Pager [phone] * Pantera Ortiz, EARTH BURNER-COMMODITY BROKER - 11/09/2017 9:48 AM SENIOR INTERNET SALES CONSULTANT Formatting of this note may be different from the original. Pre-Procedure History and Physical/Sedation Plan Procedure Date: 11/09/2017 Planned Procedure(s): Ultrasound guided right thoracentesis. Indication: Right pleural effusion. Chief Complaint: Pleural effusion History of Present Illness: Jonathon Jay is a 72 y.o. female with a history of mediastinal mass who presents today for procedure. Patient Active Problem List Diagnosis Date Noted Mediastinal mass 11/09/2017 Community acquired pneumonia 11/09/2017 Atelectasis of right lung 11/09/2017 Pleural effusion on right 11/09/2017 Acute hypoxemic respiratory failure (HCC) 11/09/2017 Past Medical History: Diagnosis Date HTN (hypertension) Mediastinal mass 10/26/2017 INNA (obstructive sleep apnea) TB (tuberculosis) as a toddler, treated at that time Thyroid cancer (HCC) 2015 Past Surgical History: Procedure Laterality Date CHOLECYSTECTOMY KNEE SURGERY THYROIDECTOMY TONSILLECTOMY Prescriptions Prior to Admission Medication Sig Dispense Refill Last Dose enalapril (VASOTEC) 10 mg tablet Take 10 mg by mouth daily. estradiol (ESTRACE) 1 mg tablet Take 0.5 mg by mouth daily. hydroCHLOROthiazide (HYDRODIURIL) 12.5 mg tablet Take 12.5 mg by mouth every morning. levothyroxine (SYNTHROID) 100 mcg tablet Take 137 mcg by mouth daily 30 minutes before breakfast. verapamil SR (CALAN-SR) 240 mg tablet Take 240 mg by mouth daily. Allergies Allergen Reactions Demerol [Meperidine] DIZZINESS Patient states she also turns milan. Social History: Social History Substance Use Topics Smoking status: Never Smoker Smokeless tobacco: Not on file Alcohol use No Family History Problem Relation Age of Onset Blood Disorder Mother leukemia Cancer-Colon Father Cancer-Lung Father Cancer Father liver Review of Systems A comprehensive review of systems was negative. Previous Personal Anesthetic/Sedation History: Denies adverse events related to sedation/anesthesia. Previous Family Anesthetic/Sedation History: Denies adverse events related to sedation/anesthesia. Physical Exam: Vital Signs: Last Filed In 24 Hours Vital Signs: 24 Hour Range BP: 123/92 (11/09 944) Temp: 37 C (98.6 F) (11/09 944) Pulse: 87 (11/09 944) Respirations: 22 PER MINUTE (11/09 944) SpO2: 94 % (11/09 944) O2 Delivery: Nasal Cannula (11/09 944) Height: 154.9 cm (61") (11/09 0013) BP: (123-154)/(58-92) Temp: [36.4 C (97.5 F)-37 C (98.6 F)] Pulse: [84-92] Respirations: [19 PER MINUTE-22 PER MINUTE] SpO2: [93 %-96 %] O2 Delivery: Nasal Cannula General appearance: alert and no distress noted. Neurologic: Grossly normal. Lungs: Non labored, diminished right lung base. Heart: regular rate and rhythm Airway: airway assessment performed Mallampati II (soft palate, uvula, fauces visible) Head and Neck: no abnormalities noted Mouth: no abnormalities noted NPO status: Acceptable Status: N/A Anesthesia Classification: ASA III (A patient with a severe systemic disease that limits activity, but is not incapacitating) Sedation/Medication Plan: Local anesthetic Discussion/Reviews: Physician has discussed risks and alternatives of this type of sedation and above planned procedures with patient Lab/Radiology/Other Diagnostic Tests: Labs: Pertinent labs reviewed Pantera Ortiz APRN-COMMODITY BROKER Pager [phone] * Kenya Ramey MD - 11/09/2017 2:23 AM SENIOR INTERNET SALES CONSULTANT Formatting of this note may be different from the original. Admission History and Physical Examination Name: Jonathon Jay Admission Date: 11/09/2017 Assessment/Plan: Ms. 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 Patient presented to [facility] in [place], [place] for shortness of breath and dry cough, she was found to have increased right-sided pleural effusion and atelectasis on CT chest without contrast. Mediastinal mass -Awaiting final pathology result -Oncology and cardiothoracic surgery consults Atelectasis of right lung Pleural effusion on right - NPO and IR consult for thoracentesis, with cytology and labs to look for cancer and parapneumonic infection Acute hypoxemic respiratory failure (HCC) -Patient does not use oxygen chronically, she is never smoker -Saturation 88% on room air in the outside hospital -ABG in outside hospital before transfer pH 7.42, PCO2 42, PO2 66, bicarb 27 -Oxygen supplementation as needed - Incentive spirometry Community acquired pneumonia, possible diagnosis -We will obtain blood cultures, RVP, Legionella and Streptococcus antigens -EKG, troponin, BNP -Treatment with Levaquin for possible mild pneumonia Other chronic conditions: -For HTN will continue enalapril, verapamil, HCTZ -For hypothyroidism: will continue Synthroid. TSH pending -For psych: patient takes estradiol for mood changes, will hold for now given her risk of VTE Diet: NPO until procedure DVT prophylaxis: SCDs only until procedure Code status: Full code If any questions after 8 AM, please page day team. Addendum: Patient was seen and examined by me today. Agree with H&P above per Dr Woo with additions from later in the day as noted below IR guided thoracentesis today, 800 cc fluid removed, follow results Continue empiric Levaquin -Seen by Oncology. PET scan today. : Large hypermetabolic mass occupying the majority of the right hemithorax compatible with biopsy proven neoplasm. Mild FDG uptake within the right pleural effusion suspicious for malignant effusion. GI consulted to assess for EGD/EUS as possible Esophageal involvement -CTS consulted, will see her tomorrow. RVP, Legionella and Streptococcus antigens negative TSH normal Trop neg Kenya Ramey MD __ Primary Care Physician: No primary care provider on file. Chief Complaint: dyspnea History of Present Illness: Ms. 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 Patient presented to [facility] in [place], [place] for shortness of breath and dry cough. Dyspnea has been ongoing for the last month or so but got worse after the biopsy on 10/26. Patient denies having phlegm, hemoptysis, or chest pain. She was found to have increased right-sided pleural effusion on CT chest without contrast. Her saturation was 88% on room air. She was transferred to [facility] for CTS consultation. Patient states that she has extensive family history of cancer: her father had colon, lung and liver cancer, and her mother had leukemia. She never smoked cigarettes. 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 She lives by herself, and is able to take care of herself. Her kids live near her, in the area of [place]. Past Medical History: Diagnosis Date HTN (hypertension) Mediastinal mass 10/26/2017 INNA (obstructive sleep apnea) TB (tuberculosis) as a toddler, treated at that time Thyroid cancer (HCC) 2015 Past Surgical History: Procedure Laterality Date CHOLECYSTECTOMY KNEE SURGERY THYROIDECTOMY TONSILLECTOMY Family History Problem Relation Age of Onset Blood Disorder Mother leukemia Cancer-Colon Father Cancer-Lung Father Cancer Father liver Social History Social History Marital status: N/A Spouse name: N/A Number of children: N/A Years of education: N/A Social History Main Topics Smoking status: Never Smoker Smokeless tobacco: Not on file Alcohol use No Drug use: Unknown Sexual activity: Not on file Other Topics Concern Not on file Social History Narrative No narrative on file Immunizations (includes history and patient reported): There is no immunization history on file for this patient. Allergies: Demerol [meperidine] Medications: Prescriptions Prior to Admission Medication Sig enalapril (VASOTEC) 10 mg tablet Take 10 mg by mouth daily. estradiol (ESTRACE) 1 mg tablet Take 0.5 mg by mouth daily. hydroCHLOROthiazide (HYDRODIURIL) 12.5 mg tablet Take 12.5 mg by mouth every morning. levothyroxine (SYNTHROID) 100 mcg tablet Take 137 mcg by mouth daily 30 minutes before breakfast. verapamil SR (CALAN-SR) 240 mg tablet Take 240 mg by mouth daily. Review of Systems: A comprehensive 10-point ROS was negative Physical Exam: Vital Signs: Last Filed In 24 Hours Vital Signs: 24 Hour Range BP: 154/67 (11/09 12) Temp: 36.4 C (97.5 F) (11/09 12) Pulse: 87 (11/09 0022) Respirations: 22 PER MINUTE (11/09 12) SpO2: 93 % (11/09 12) Height: 154.9 cm (61") (11/09 12) BP: (154)/(67) Temp: [36.4 C (97.5 F)] Pulse: [87-92] Respirations: [22 PER MINUTE] SpO2: [93 %] Physical Exam .General: Alert, cooperative, mild distress, oriented x 3 Head: Normocephalic, without obvious abnormality, atraumatic Eyes: Conjunctivae/corneas clear. Throat: Lips, mucosa and tongue normal. Neck: trachea midline, no JVD Lungs: Severely decreased lung sounds on the right side. No crackles / wheezes. Patient is breathing comfortably. Heart: Regular rate and rhythm, S1, S2 normal, no murmur, click rub or gallop Abdomen: Soft, non-tender. Bowel sounds normal. No masses. No organomegaly. Extremities: Extremities normal, atraumatic, no cyanosis or edema Pulses: 2+ and symmetric, DP lower extremities Skin: No rashes or lesions Psych: Appropriate mood and affect. Neurologic: No facial droop. Normal speech. Lab/Radiology/Other Diagnostic Tests: In outside hospital on 11/08/2017 WBC: 8.5 Hb: 13 Plt: 361 Na: 138 K: 3.9 Cl: 102 HCO3: 22 BUN: 12 Cr: 0.76 Glucose: 111 ABG outside hospital before transfer pH 7.42, PCO2 42, PO2 66, bicarb 27 Pertinent radiology reviewed. Susana Woo MD Internal Medicine Pager [phone] in this encounter Consult Notes * Charline Alves DO - 11/13/2017 11:08 AM S[employer]IOR INTERNET SAL[employer] CONSULTANT Associated Order(s): CONSULT PULMONARY/CRITICAL CARE PHYSICIAN Formatting of this note may be different from the original. Pulmonary Consult Note Jonathon Jay Date of Admission: 11/09/2017 Active Problems: Mediastinal mass Community acquired pneumonia Atelectasis of right lung Pleural effusion on right Acute hypoxemic respiratory failure (HCC) Impression/Plan: Ms. Jay is a 72 year old female with PMH of thyroid cancer s/p Thyroidectomy in 2015 who presented with dyspnea and cough to [facility] in [place], [place]. She was found to have a large posterior mediastinal mass that was biopsied and diagnosed as atypical spindle cell neoplasm. Pulmonary was consulted for possible EBUS 1. 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 Onc is requesting more tissue and there were no lesions amenable to biopsy on EUS. Mass and effusion are occuping the majority of her R hemithorax - will plan for EBUS with potential biopsy on 11/14 - NPO after midnight tonight Thank you for this consult. Pulmonary will continue to follow Pt seen and plan discussed with Dr. Winn. Reason for consult: lung mass HPI: Jonathon Jay is a 72 y.o. female with PMH of thyroid cancer s/p thyroidectomy in 2015 with no further treatment, TB treated as a child, INNA who presented with dyspnea and cough. These symptoms started about one month ago. She was treated with a couple of different cough medicatoins with no improvement and so had a CT chest which showed a posterior mediastinal mass and pleural effusion. She underwent CT guided biopsy of that last week which showed an atypical spindle cell neoplsam. After the biopsy she had progressive shortness of breath so presented to the ED in [place], [place] and then was transferred here. She underwent thoracentesis on 11/09. She reports that at the very end of the procedure she experienced more pain than she has ever had in her life. It did provide her with some relief from her dyspnea but overall the pain was not worth it. Oncology requested more tissue for further analysis so she underwent EUS on 11/12 but there were no lesions amenable to biopsy. Pulmonary was consulted for possible EBUS PMH: Past Medical History: Diagnosis Date HTN (hypertension) Mediastinal mass 10/26/2017 INNA (obstructive sleep apnea) TB (tuberculosis) as a toddler, treated at that time Thyroid cancer (HCC) 2016 PSH: Past Surgical History: Procedure Laterality Date UPPER GASTROINTESTINAL ENDOSCOPY N/A 11/12/2017 ESOPHAGOGASTRODUODENOSCOPY ENDOSCOPIC ULTRASOUND performed by Michael Wade MD at ENDO/GI CHOLECYSTECTOMY KNEE SURGERY THYROIDECTOMY TONSILLECTOMY SOCIAL HISTORY: Social History Social History Marital status: Spouse name: N/A Number of children: N/A Years of education: N/A Social History Main Topics Smoking status: Never Smoker Smokeless tobacco: Never Used Alcohol use No Drug use: No Sexual activity: Not on file Other Topics Concern Not on file Social History Narrative No narrative on file FAMILY HISTORY: Family History Problem Relation Age of Onset Blood Disorder Mother leukemia Cancer-Colon Father Cancer-Lung Father Cancer Father liver ROS: A complete 14 point ROS was obtained and was positive only for what was mentioned in the HPI. ALLERGIES: Demerol [meperidine] Vital Signs: Last Filed In 24 Hours Vital Signs: 24 Hour Range BP: 121/52 (11/13 729) Temp: 36.7 C (98 F) (11/13 729) Pulse: 85 (11/13 729) Respirations: 20 PER MINUTE (11/13 729) SpO2: 93 % (11/13 729) O2 Delivery: Nasal Cannula (11/13 729) SpO2 Pulse: 82 (11/12 1900) BP: (121-152)/(43-71) Temp: [36.7 C (98 F)-37.3 C (99.1 F)] Pulse: [66-156] Respirations: [18 PER MINUTE-28 PER MINUTE] SpO2: [92 %-98 %] O2 Delivery: Nasal Cannula PHYSICAL EXAMINATION: General: Alert, cooperative, no apparent distress, appears stated age Head: Normocephalic, without obvious abnormality, atraumatic Eyes: Conjunctiva clear. Pupils equal and round, no scleral icterus Neck: Supple, symmetrical, no adenopathy, thyroid Lungs: Absent breath sounds on R except at hte apex. No wheezes or crackles. Heart: Regular rate and rhythm, S1, S2 normal, no murmur,rub,click or gallop Abdomen: Soft, non-tender. Bowel sounds normal. No masses. No organomegaly. Extremities: Extremities normal, atraumatic, no cyanosis or edema Pulses: 2+ and symmetric, all extremities Neurologic Exam Mental Status: alert and oriented x 3 Psych: normal mood and affect Skin: no rashes or jaundice LABS: Recent Labs 11/11/1733 11/12/17 0514 11/13/17 0602 NA 137 137 140 K 3.5 3.8 3.7 CL 100 102 103 CO2 29 28 31* GAP 8 7 6 BUN 16 20 17 CR 0.76 0.90 0.73 GLU 114* 114* 108* CA 8.7 8.6 8.8 ALBUMIN 3.4* 3.1* 3.1* Recent Labs 11/11/1753211/12/17 0514 11/13/17 0602 WBC 7.8 7.2 6.2 HGB 12.6 11.3* 11.5* HCT 36.6 34.6* 35.5* PLTCT 373 327 315 AST 15 14 12 ALT 20 14 14 ALKPHOS 43 41 40 Estimated Creatinine Clearance: 72.6 mL/min (based on SCr of 0.73 mg/dL). Vitals: 11/09/17 0013 Weight: 91.1 kg (200 lb 12.8 oz) No results for input(s): PHART, PO2ART in the last 72 hours. Invalid input(s): PC02A MEDS docusate 100 mg Oral QDAY enalapril 10 mg Oral QDAY hydroCHLOROthiazide 12.5 mg Oral QAM8 levothyroxine 137 mcg Oral QDAY 30 min before breakfast triamcinolone acetonide Topical BID verapamil SR 240 mg Oral QDAY IV MEDS Prn acetaminophen Q6H PRN 650 mg at 11/13/17 0623, cyclobenzaprine TID PRN, nystatin BID PRN, ondansetron (ZOFRAN) IV Q6H PRN HOME MEDS Prescriptions Prior to Admission Medication Sig calcium carbonate/vitamin D-3 (OSCAL-500+D) 1250 mg/200 unit tablet Take 1 tablet by mouth daily. Calcium Carb 1250mg delivers 500mg elemental Ca enalapril (VASOTEC) 10 mg tablet Take 10 mg by mouth daily. estradiol (ESTRACE) 0.5 mg tablet Take 0.5 mg by mouth daily. hydroCHLOROthiazide (HYDRODIURIL) 12.5 mg tablet Take 12.5 mg by mouth every morning. levothyroxine (SYNTHROID) 137 mcg tablet Take 137 mcg by mouth daily 30 minutes before breakfast. verapamil SR (CALAN-SR) 240 mg tablet Take 240 mg by mouth daily. vitamins, B complex tab Take 1 tablet by mouth daily. vitamins, multiple (DAILY MULTI-VITAMIN) tablet Take 1 tablet by mouth daily. RADIOLOGY: CXR- IMPRESSION Increase in size of a right pleural effusion with near complete opacification of the right lung compatible with known pulmonary mass. Elizabeth Alves DO Pulmonary/Critical Care Pager # [phone] 11/13/2017 Associated attestation - Akash Winn MD - 11/13/2017 10:54 PM [employer]IOR [employer] SAL[employer] CONSULTANT Formatting of this note may be different from the original. ATTESTATION I personally performed the zapata portions of the E/M visit, discussed case with resident and concur with resident documentation of history, physical exam, assessment, and treatment plan unless otherwise noted. The patient presents with progressive dyspnea and hypoxia in the setting of a large posterior mediastinal mass. The mass is completely obliterating the right lung, with minimal aeration left in the apex. She reports that even over the past 2-3 days, her dyspnea and hypoxia have been progressive. She did have a known right-sided pleural effusion, that was previously drained. At the end of the procedure, she experienced severe chest wall pain, suggesting she has significant lung entrapment limiting reexpansion. She could obviously be having recurrence of the pleural effusion contributing to her worsening dyspnea and hypoxia. If this is the case, she would likely need a thoracentesis done with pleural manometry to monitor for negative pressure reexpansion, aborting the procedure as pleural pressures became more negative. We will see if our interventional team could potentially take a look under ultrasound, as chest x-ray, and CT imaging may be limited by the size of the mass. Although the initial biopsy confirmed a spindle cell neoplasm, oncology is requesting additional tissue to help guide management. IR feels it is a high risk procedure for CT-guided biopsy. On EUS there was no lesions amenable. We reviewed the imaging with our interventional team, and they think that even this could potentially allow for access into the mass. Keep her n.p.o. overnight for planned procedure tomorrow. Remainder of care plan per Dr. Alves's note. Time dedicated to conducting physical exam, reviewing labs and imaging, coordinating care plan with Dr. Alves, and discussing the management plan with the patient. Staff name: Akash Winn MD Date: 11/13/2017 * Emilee Camargo MD - 11/10/2017 4:00 PM S[employer]IOR [employer] SAL[employer] CONSULTANT Associated Order(s): CONSULT CARDIOTHORACIC SURGERY PHYSICIAN Formatting of this note may be different from the original. CTS CONSULT Date of Service: 11/10/2017 Requesting Physician: Kenya Ramey MD Consulting Physician: Leyla Lopez MD Consult Performed By: Emilee Camargo MD HPI: Mrs. Jay is a 72 y/o F who presented to [facility] in [place], [place], for shortness of breath and a nonproductive cough. 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 She was transferred to [facility] for further workup. She is currently admitted to the medicine service here. Cardiothoracic consultation has been requested to determine if the patient is a surgical candidate. Past Medical History: Diagnosis Date HTN (hypertension) Mediastinal mass 10/26/2017 INNA (obstructive sleep apnea) TB (tuberculosis) as a toddler, treated at that time Thyroid cancer (HCC) 2015 PSH: Past Surgical History: Procedure Laterality Date CHOLECYSTECTOMY KNEE SURGERY THYROIDECTOMY TONSILLECTOMY Medications: docusate (COLACE) capsule 100 mg 100 mg Oral QDAY enalapril (VASOTEC) tablet 10 mg 10 mg Oral QDAY enoxaparin (LOVENOX) syringe 40 mg 40 mg Subcutaneous QDAY(21) hydroCHLOROthiazide (HYDRODIURIL) tablet 12.5 mg 12.5 mg Oral QAM8 levothyroxine (SYNTHROID) tablet 137 mcg 137 mcg Oral QDAY 30 min before breakfast verapamil SR (CALAN-SR) tablet 240 mg 240 mg Oral QDAY Allergies: Allergies Allergen Reactions Demerol [Meperidine] DIZZINESS Patient states she also turns milan. Family History: Family History Problem Relation Age of Onset Blood Disorder Mother leukemia Cancer-Colon Father Cancer-Lung Father Cancer Father liver Social History: Social History Social History Marital status: Spouse name: N/A Number of children: N/A Years of education: N/A Social History Main Topics Smoking status: Never Smoker Smokeless tobacco: Never Used Alcohol use No Drug use: No Sexual activity: Not on file Other Topics Concern Not on file Social History Narrative No narrative on file ROS: Constitutional: Negative for Fatigue, Weight Change, Fevers Eyes, Ears, Nose And Throat: Negative for Change in vision, Change in Hearing Cardiovascular: Negative for Chest Pain, Palpitations, Swelling in ankles Respiratory: Positive for Cough, Shortness of Breath, Negative for wheezing Gastrointestinal: Negative for Nausea, indigestion, Diarrhea, Constipation, Rectal Bleeding Neurological: Negative for Headache, Memory problems, Numbness, Muscle Weakness Psychological: Negative for depression or anxiety Musculoskeletal: Negative for Pain or Swelling in joints Genitourinary: Negative for Pain with urination, Incontinence of urine, urinary frequency Skin: Negative for any unusual rash Endocrine: Negative for Any hair skin or nail changes, Unusual hunger or thirst Physical Exam: Temp: 36.8 C (98.2 F) (11/10 1516) Pulse: 80 (11/10 1516) Respirations: 18 PER MINUTE (11/10 1516) BP: 110/66 (11/10 1516) GENERAL: A&O x 3, NAD. HEENT Head: Normocephalic Teeth: Present and in good dentition NECK Active ROM: full Trachea: midline HEART Neck Veins- No JVD Cardiac: RRR with normal S1, S2. No murmurs LUNGS Auscultation- breath sounds clear bilaterally but markedly diminshed on R ABDOMEN Soft, NT + BS EXTREMITIES Edema- No edema Posterior Tibial- 2+ chuy Dorsalis Pedis- 2+ chuy SKIN: Normal, without lesions NEUROLOGIC A&O x 3 Grossly intact Results for orders placed or performed during the hospital encounter of (from the past 24 hour(s)) CBC AND DIFF Collection Time: 11/10/17 4:36 AM # # Low-High White Blood Cells 7.5 4.5 - 11.0 K/UL RBC 4.16 4.0 - 5.0 M/UL Hemoglobin 11.8 (L) 12.0 - 15.0 GM/DL Hematocrit 35.4 (L) 36 - 45 % MCV 85.0 80 - 100 FL MCH 28.2 26 - 34 PG MCHC 33.2 32.0 - 36.0 G/DL RDW 15.0 11 - 15 % Platelet Count 315 150 - 400 K/UL MPV 7.4 7 - 11 FL Neutrophils 76 41 - 77 % Lymphocytes 16 (L) 24 - 44 % Monocytes 7 4 - 12 % Eosinophils 1 0 - 5 % Basophils 0 0 - 2 % Absolute Neutrophil Count 5.70 1.8 - 7.0 K/UL Absolute Lymph Count 1.20 1.0 - 4.8 K/UL Absolute Monocyte Count 0.60 0 - 0.80 K/UL Absolute Eosinophil Count 0.10 0 - 0.45 K/UL Absolute Basophil Count 0.00 0 - 0.20 K/UL COMPREHENSIVE METABOLIC PANEL Collection Time: 11/10/17 4:36 AM # # Low-High Sodium 135 (L) 137 - 147 MMOL/L Potassium 3.4 (L) 3.5 - 5.1 MMOL/L Chloride 100 98 - 110 MMOL/L Glucose 128 (H) 70 - 100 MG/DL Blood Urea Nitrogen 14 7 - 25 MG/DL Creatinine 0.81 0.4 - 1.00 MG/DL Calcium 8.3 (L) 8.5 - 10.6 MG/DL Total Protein 5.7 (L) 6.0 - 8.0 G/DL Total Bilirubin 0.8 0.3 - 1.2 MG/DL Albumin 3.2 (L) 3.5 - 5.0 G/DL Alk Phosphatase 41 25 - 110 U/L AST (SGOT) 14 7 - 40 U/L CO2 28 21 - 30 MMOL/L ALT (SGPT) 20 7 - 56 U/L Anion Gap 7 3 - 12 eGFR Non >60 >60 mL/min eGFR >60 >60 mL/min All pertinent diagnostic studies have been reviewed. Impression: Active Hospital Problems Diagnosis Mediastinal mass Community acquired pneumonia Atelectasis of right lung Pleural effusion on right Acute hypoxemic respiratory failure (HCC) Plan: Mrs. Jay is a 72 y/o F with a new diagnosis of a posterior mediastinal mass concerning for malignancy. Biopsy obtained from the outside hospital was concerning for sarcoma but not definitive. She is being evaluated by the oncology team, who have recommended a second biopsy in order to obtain a definitive diagnosis. She is also scheduled for an EUS early next week. Initial review of the mass on CT chest appears that it is likely unresectable; however, we we will continue to follow along with you and plan to discuss her case at our weekly tumor board on . Emilee Camargo MD Associated attestation - Leyla Lopez MD - 11/11/2017 8:53 AM SENIOR [employer] SAL[employer] CONSULTANT Formatting of this note may be different from the original. ATTESTATION I personally performed the zapata portions of the E/M visit, discussed case with resident and concur with resident documentation of history, physical exam, assessment, and treatment plan unless otherwise noted. Staff name: Leyal Lopez MD Date: 11/11/2017 * Bette Kurtz MD - 11/09/2017 10:37 AM SENIOR INTERNET SALES CONSULTANT Associated Order(s): CONSULT GASTROENTEROLOGY PHYSICIAN Formatting of this note may be different from the original. GI Consult Note Admission Date: 11/09/2017 LOS: 0 days Reason for Consult: Mediastinal mass Assessment/Plan 72-year-old female, past medical history significant for hypertension, obstructive sleep apnea on CPAP, history of thyroid cancer status post thyroidectomy in 2015, recent diagnosis of posterior mediastinal/pleural mass with atypical spindle cell neoplasm from mass biopsy on 10/26/17 (pending final pathology work-up), was transferred from [place], [place] to [facility] for worsening shortness of breath and increase right-sided pleural effusion and atelectasis. GI are being consulted for further evaluation of intestinal mass by endoscopic ultrasound. Impressions: Mediastinal mass: EUS may be helpful to determine the degree of involvement of esophagus and its surrounding tissue with the medistinal mass. Recommendations: 1. The case will be discussed with our therapeutic endoscopy team and if no contraindications 2. Plan for endoscopic ultrasound on 11/12/17 3. Please keep n.p.o. on Sunday at midnight 4. If patient is to be discharged over the weekend, please contact GI on-call to schedule for outpatient. 5. Further recommendations will follow after endoscopic procedure Evaluated and discussed with my attending physician Dr. Jordan I personally performed the zapata portions of the E/M visit, discussed case with resident and concur with resident documentation of history, physical exam, assessment, and treatment plan unless otherwise noted. Bette Kurtz MD History of Present Illness: Jonathon Jay is a 72 y.o. female, past medical history significant for hypertension, obstructive sleep apnea on CPAP, history of thyroid cancer status post thyroidectomy in 2015, recent diagnosis of posterior mediastinal/pleural mass with atypical spindle cell neoplasm from mass biopsy on 10/26/17 (pending final pathology work-up), was transferred from [place], [place] to [facility] for worsening shortness of breath and increase right-sided pleural effusion and atelectasis. GI are being consulted for evaluation of possible esophageal involvement by endoscopic ultrasound. Patient reporting worsening shortness of breath. Past Medical History: Diagnosis Date HTN (hypertension) Mediastinal mass 10/26/2017 INNA (obstructive sleep apnea) TB (tuberculosis) as a toddler, treated at that time Thyroid cancer (HCC) 2015 Past Surgical History: Procedure Laterality Date CHOLECYSTECTOMY KNEE SURGERY THYROIDECTOMY TONSILLECTOMY Social History Social History Marital status: Spouse name: N/A Number of children: N/A Years of education: N/A Social History Main Topics Smoking status: Never Smoker Smokeless tobacco: Not on file Alcohol use No Drug use: Unknown Sexual activity: Not on file Other Topics Concern Not on file Social History Narrative No narrative on file Family history reviewed; non-contributory Allergies: Demerol [meperidine] Scheduled Meds: docusate (COLACE) capsule 100 mg 100 mg Oral QDAY enalapril (VASOTEC) tablet 10 mg 10 mg Oral QDAY hydroCHLOROthiazide (HYDRODIURIL) tablet 12.5 mg 12.5 mg Oral QAM8 levofloxacin (LEVAQUIN) 750 mg/150 mL IVPB 750 mg Intravenous Q24H* levothyroxine (SYNTHROID) tablet 137 mcg 137 mcg Oral QDAY 30 min before breakfast verapamil SR (CALAN-SR) tablet 240 mg 240 mg Oral QDAY Continuous Infusions: PRN and Respiratory Meds:acetaminophen Q6H PRN, ondansetron (ZOFRAN) IV Q6H PRN Review of Systems: All other systems reviewed and are negative. Vital Signs: Last Filed in 24 hours Vital Signs: 24 hour Range BP: 111/76 (11/09 1035) Temp: 37 C (98.6 F) (11/09 0945) Pulse: 90 (11/09 1034) Respirations: 25 PER MINUTE (11/09 1034) SpO2: 95 % (11/09 1034) O2 Delivery: Nasal Cannula (11/09 1034) SpO2 Pulse: 90 (11/09 1034) Height: 154.9 cm (61") (11/09 0013) BP: (111-154)/(58-97) Temp: [36.4 C (97.5 F)-37 C (98.6 F)] Pulse: [84-93] Respirations: [19 PER MINUTE-26 PER MINUTE] SpO2: [93 %-96 %] O2 Delivery: Nasal Cannula Physical Exam: Vitals: 11/09/17 1035 BP: 111/76 Pulse: 90 Temp: SpO2: 95% General: Awake, alert, oriented 3 HEENT: Moist mucosal membranes, anicteric sclera Neck: Supple, no JVD Lymph: No cervical or supraclavicular lymphadenopathy Heart: Regular rate and rhythm, intact distal pulses Lungs: Decreased breath sounds on right side Abdomen: Soft, nontender, nondistended, normal bowel sounds, no hepatosplenomegaly appreciated Lower extremities: No edema, good pulses bilaterally Neurologic: Grossly intact, no focal deficits Skin: Warm, dry Lab/Radiology/Other Diagnostic Tests: 24-hour labs: Results for orders placed or performed during the hospital encounter of (from the past 24 hour(s)) CBC AND DIFF Collection Time: 11/09/17 2:55 AM Result Value Ref Range White Blood Cells 7.1 4.5 - 11.0 K/UL RBC 4.36 4.0 - 5.0 M/UL Hemoglobin 12.1 12.0 - 15.0 GM/DL Hematocrit 37.0 36 - 45 % MCV 85.0 80 - 100 FL MCH 27.7 26 - 34 PG MCHC 32.6 32.0 - 36.0 G/DL RDW 15.1 (H) 11 - 15 % Platelet Count 309 150 - 400 K/UL MPV 7.1 7 - 11 FL Neutrophils 68 41 - 77 % Lymphocytes 23 (L) 24 - 44 % Monocytes 7 4 - 12 % Eosinophils 1 0 - 5 % Basophils 1 0 - 2 % Absolute Neutrophil Count 4.90 1.8 - 7.0 K/UL Absolute Lymph Count 1.60 1.0 - 4.8 K/UL Absolute Monocyte Count 0.50 0 - 0.80 K/UL Absolute Eosinophil Count 0.00 0 - 0.45 K/UL Absolute Basophil Count 0.00 0 - 0.20 K/UL PROTIME INR (PT) Collection Time: 11/09/17 2:55 AM Result Value Ref Range INR 1.1 0.8 - 1.2 COMPREHENSIVE METABOLIC PANEL Collection Time: 11/09/17 2:55 AM Result Value Ref Range Sodium 139 137 - 147 MMOL/L Potassium 3.7 3.5 - 5.1 MMOL/L Chloride 104 98 - 110 MMOL/L Glucose 116 (H) 70 - 100 MG/DL Blood Urea Nitrogen 14 7 - 25 MG/DL Creatinine 0.71 0.4 - 1.00 MG/DL Calcium 9.0 8.5 - 10.6 MG/DL Total Protein 6.3 6.0 - 8.0 G/DL Total Bilirubin 0.6 0.3 - 1.2 MG/DL Albumin 3.5 3.5 - 5.0 G/DL Alk Phosphatase 47 25 - 110 U/L AST (SGOT) 18 7 - 40 U/L CO2 26 21 - 30 MMOL/L ALT (SGPT) 24 7 - 56 U/L Anion Gap 9 3 - 12 eGFR Non >60 >60 mL/min eGFR >60 >60 mL/min TROPONIN-I Collection Time: 11/09/17 2:55 AM Result Value Ref Range Troponin-I 0.01 0.0 - 0.05 NG/ML TSH WITH FREE T4 REFLEX Collection Time: 11/09/17 2:55 AM Result Value Ref Range TSH 1.008 0.35 - 5.00 MCU/ML BNP (B-TYPE NATRIURETIC PEPTI) Collection Time: 11/09/17 2:55 AM Result Value Ref Range B Type Natriuretic Peptide 28.0 0 - 100 PG/ML RVP VIRAL PANEL PCR Collection Time: 11/09/17 3:05 AM Result Value Ref Range Specimen Source NASAL WASH Adenovirus NOT DETECTED Coronavirus 229E NOT DETECTED Coronavirus HKU1 NOT DETECTED Coronavirus NL63 NOT DETECTED Coronavirus OC43 NOT DETECTED Human Metapneumovirus NOT DETECTED Human Rhinovirus/ENTEROVIRUS NOT DETECTED Influenza A H1N1 2009 NOT DETECTED Influenza A H1 NOT DETECTED Influenza A H3 NOT DETECTED Influenza B NOT DETECTED Parainfluenza 1 NOT DETECTED Parainfluenza 2 NOT DETECTED Parainfluenza 3 NOT DETECTED Parainfluenza 4 NOT DETECTED RSV NOT DETECTED Bordetella Pertussis NOT DETECTED Chlamydophila Pneumoniae NOT DETECTED Mycoplasma Pneumoniae NOT DETECTED STREPTOCOCCUS PNEUMO AG, URINE Collection Time: 11/09/17 7:22 AM Result Value Ref Range Battery Name STREP PNEUMO AG, UR Specimen Description URINE Special Requests NONE Antigen NEGATIVE Report Status FINAL 11/09/2017 LEGIONELLA ANTIGEN URINE,RAN Collection Time: 11/09/17 7:22 AM Result Value Ref Range Battery Name LEGIONELLA URINE ANTIGEN Specimen Description URINE Special Requests NONE Antigen NEGATIVE Report Status FINAL 11/09/2017 CELL COUNT W/DIFF-FLUIDS Collection Time: 11/09/17 10:36 AM Result Value Ref Range White Blood Cells,Fluid 1,670 /UL Red Blood Cells,Fluid 2,460 /UL Segmented Neutrophils, Fluid 11 % Lymphocytes,Fluid 76 % Monocyte/Histo,Fluid 13 % Fluid Source THORACENTESIS FLUID Pathology Interpretation,Fluid Pathologist Signature CULTURE-WOUND/TISSUE/FLUID(AEROBIC ONLY)W/SENSITIVITY Collection Time: 11/09/17 10:36 AM Result Value Ref Range Battery Name ROUTINE CULTURE Specimen Description THORACENTESIS FLUID Special Requests NONE Direct Gram Stain FEW NEUTROPHILS NO ORGANISMS SEEN Culture Report Status PLEURAL FLUID ALBUMIN Collection Time: 11/09/17 10:36 AM Result Value Ref Range Pleural Fluid Albumin 2.4 g/dL PLEURAL FLUID GLUCOSE Collection Time: 11/09/17 10:36 AM Result Value Ref Range Pleural Fluid Glucose 102 (H) 70 - 100 mg/dL PLEURAL FLUID LACTATE DEHYDROGENASE Collection Time: 11/09/17 10:36 AM Result Value Ref Range Pleural Fluid Lactate Dehydrogenase 398 (H) 67 - 140 U/L PLEURAL FLUID PH Collection Time: 11/09/17 10:36 AM Result Value Ref Range Pleural Fluid Ph 7.45 (L) 7.60 - 7.66 PLEURAL FLUID TOTAL PROTEIN Collection Time: 11/09/17 10:36 AM Result Value Ref Range Pleural Fluid Total Protein 3.6 (H) <1.1 g/dL GRAM STAIN Collection Time: 11/09/17 10:36 AM Result Value Ref Range Battery Name GRAM STAIN Specimen Description THORACENTESIS FLUID Special Requests NONE Gram Stain FEW NEUTROPHILS NO ORGANISMS SEEN Report Status FINAL 11/09/2017 Pertinent radiology reviewed. Opal Arellano MD Gastroenterology & Hepatology Fellow Pager [phone] * Debora Hernandez APRN - 11/09/2017 7:33 AM SENIOR INTERNET SALES CONSULTANT Associated Order(s): CONSULT ONCOLOGY PHYSICIAN Formatting of this note may be different from the original. 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 Plan - Faviola Serrato RN - 11/09/2017 5:22 AM SENIOR INTERNET SALES CONSULTANT Problem: Discharge Planning Goal: Participation in plan of care Outcome: Goal Ongoing Patient takes an active role in POC. All questions answered at this time and patient verbally acknowledges understanding. Problem: Respiratory Impairment (Non-Ventilated Patient) Goal: Effective gas exchange Outcome: Goal Ongoing Patient's O2 sats will remain >92% during this shift. in this encounter Plan of Treatment Name Priority Associated Diagnoses Order Schedule CYTOLOGY FLUIDS Routine ONCE for 1 Occurrences starting 11/09/2017 as of this encounter Procedures Procedure Name Priority Date/Time Associated Diagnosis Comments PROCEDURE RECORD-SCAN 11/22/2017 Results for this 9:48 AM CDT procedure are in the results section. ECG-SCAN 11/18/2017 Results for this 5:16 PM CDT procedure are in the results section. ECG-SCAN 11/18/2017 Results for this 5:15 PM CDT procedure are in the results section. BRONCHOSCOPY WITH 11/14/2017 Lung mass ULTRASOUND 1:30 PM SENIOR INTERNET SALES CONSULTANT CONSULT IV THERAPY TEAM STAT 11/14/2017 12:18 PM SENIOR INTERNET SALES CONSULTANT ESOPHAGOGASTRODUODENOSCOP 11/12/2017 Mediastinal mass Y ENDOSCOPIC ULTRASOUND 5:57 PM SENIOR INTERNET SALES CONSULTANT CONSULT IV THERAPY TEAM Routine 11/12/2017 9:26 AM SENIOR INTERNET SALES CONSULTANT CONSULT IV THERAPY TEAM STAT 11/09/2017 5:01 AM SENIOR INTERNET SALES CONSULTANT in this encounter Results * PROCEDURE RECORD-SCAN (11/22/2017 9:48 AM) Narrative Ordered by an unspecified provider. * ECG-SCAN (11/18/2017 5:16 PM) Narrative Ordered by an unspecified provider. * ECG-SCAN (11/18/2017 5:15 PM) Narrative Ordered by an unspecified provider. * COMPREHENSIVE METABOLIC PANEL (11/17/2017 3:35 AM) Component Value Ref Range Sodium 138 137 [...] Performing Laboratory [facility] [address] [place] [address] * PHOSPHORUS (11/17/2017 3:35 AM) Component Value Ref Range Phosphorus 3.9 2.0 - 4.0 MG/DL Specimen Performing Laboratory [facility] [address] [place] [address] * MAGNESIUM (11/17/2017 3:35 AM) Component Value Ref Range Magnesium 2.0 1.6 - 2.6 mg/dL Specimen Performing Laboratory [facility] [address] [place] [address] * CBC AND DIFF (11/17/2017 3:35 AM) Component Value Ref Range White Blood Cells [...] - 0.20 K/UL Specimen Performing Laboratory [facility] [address] [place] [address] * COMPREHENSIVE METABOLIC PANEL (11/16/2017 5:34 AM) Component Value Ref Range Sodium 140 137 - 147 MMOL/L Potassium 3.9 3.5 - 5.1 MMOL/L Chloride 103 98 - 110 MMOL/L Glucose 110 (H) 70 - 100 MG/DL Blood Urea Nitrogen 30 (H) 7 - 25 MG/DL Creatinine 0.76 0.4 - 1.00 MG/DL Calcium 8.7 8.5 - 10.6 MG/DL Total Protein 5.7 (L) 6.0 - 8.0 G/DL Total Bilirubin 0.3 0.3 - 1.2 MG/DL Albumin 3.1 (L) 3.5 - 5.0 G/DL Alk Phosphatase 38 25 - 110 U/L AST (SGOT) 14 7 - 40 U/L CO2 30 21 - 30 MMOL/L ALT (SGPT) 15 7 - 56 U/L Anion Gap 7 3 - 12 eGFR Non >60 >60 [...] Pharmacist for questions. Specimen Performing Laboratory [facility] [address] [place] [address] * PHOSPHORUS (11/16/2017 5:34 AM) Component Value Ref Range Phosphorus 3.8 2.0 - 4.0 MG/DL Specimen Performing Laboratory [facility] [address] [place], [place] [id number] * MAGNESIUM (11/16/2017 5:34 AM) Component Value Ref Range Magnesium 2.1 1.6 - 2.6 mg/dL Specimen Performing Laboratory [facility] [address] [place], [place] [id number] * CBC AND DIFF (11/16/2017 5:34 AM) Component Value Ref Range White Blood Cells 6.9 4.5 - 11.0 K/UL RBC 3.81 (L) 4.0 - 5.0 M/UL Hemoglobin 10.6 (L) 12.0 - 15.0 GM/DL Hematocrit 32.6 (L) 36 - 45 % MCV 85.4 80 - 100 FL MCH 27.8 26 - 34 PG MCHC 32.6 32.0 - 36.0 G/DL RDW 14.9 11 - 15 % Platelet Count 384 150 - 400 K/UL MPV 6.8 (L) 7 - 11 FL Neutrophils 60 41 - 77 % Lymphocytes 32 24 - 44 % Monocytes 6 4 - 12 % Eosinophils 1 0 - 5 % Basophils 1 0 - 2 % Absolute Neutrophil Count 4.20 1.8 - 7.0 K/UL Absolute Lymph Count 2.20 1.0 - 4.8 K/UL Absolute Monocyte Count 0.40 0 - 0.80 K/UL Absolute Eosinophil Count 0.10 0 - 0.45 K/UL Absolute Basophil Count 0.00 0 - 0.20 K/UL Specimen Performing Laboratory [facility] [address] [place] [id number] * COMPREHENSIVE METABOLIC PANEL (11/15/2017 2:35 AM) Component Value Ref Range Sodium 137 137 - 147 MMOL/L Potassium 3.8 3.5 - 5.1 MMOL/L Chloride 100 98 - 110 MMOL/L Glucose 147 (H) 70 - 100 MG/DL Blood Urea Nitrogen 19 7 - 25 MG/DL Creatinine 0.80 0.4 - 1.00 MG/DL Calcium 8.9 8.5 - 10.6 MG/DL Total Protein 6.5 6.0 - 8.0 G/DL Total Bilirubin 0.4 0.3 - 1.2 MG/DL Albumin 3.5 3.5 - 5.0 G/DL Alk Phosphatase 43 25 - 110 U/L AST (SGOT) 13 7 - 40 U/L CO2 27 21 - 30 MMOL/L ALT (SGPT) 15 7 - 56 U/L Anion Gap 10 3 - 12 eGFR Non >60 >60 [...] Pharmacist for questions. Specimen Performing Laboratory [facility] [address] [place] [address] * PHOSPHORUS (11/15/2017 2:35 AM) Component Value Ref Range Phosphorus 5.0 (H) 2.0 - 4.0 MG/DL Specimen Performing Laboratory [facility] [address] [place] [address] * MAGNESIUM (11/15/2017 2:35 AM) Component Value Ref Range Magnesium 2.2 1.6 - 2.6 mg/dL Specimen Performing Laboratory [facility] [address] [place] [address] * CBC AND DIFF (11/15/2017 2:35 AM) Component Value Ref Range White Blood Cells 6.8 4.5 - 11.0 K/UL RBC 4.34 4.0 - 5.0 M/UL Hemoglobin 11.9 (L) 12.0 - 15.0 GM/DL Hematocrit 37.2 36 - 45 % MCV 85.6 80 - 100 FL MCH 27.5 26 - 34 PG MCHC 32.1 32.0 - 36.0 G/DL RDW 14.9 11 - 15 % Platelet Count 402 (H) 150 - 400 K/UL MPV 6.5 (L) 7 - 11 FL Neutrophils 90 (H) 41 - 77 % Lymphocytes 8 (L) 24 - 44 % Monocytes 2 (L) 4 - 12 % Eosinophils 0 0 - 5 % Basophils 0 0 - 2 % Absolute Neutrophil Count 6.10 1.8 - 7.0 K/UL Absolute Lymph Count 0.50 (L) 1.0 - 4.8 K/UL Absolute Monocyte Count 0.10 0 - 0.80 K/UL Absolute Eosinophil Count 0.00 0 - 0.45 K/UL Absolute Basophil Count 0.00 0 - 0.20 K/UL Specimen Performing Laboratory [facility] [address] [place] [address] * CBC AND DIFF (11/14/2017 6:12 PM) Component Value Ref Range White Blood Cells 8.1 4.5 - 11.0 K/UL RBC 4.22 4.0 - 5.0 M/UL Hemoglobin 11.8 (L) 12.0 - 15.0 GM/DL Hematocrit 36.3 36 - 45 % MCV 86.0 80 - 100 FL MCH 27.9 26 - 34 PG MCHC 32.5 32.0 - 36.0 G/DL RDW 15.2 (H) 11 - 15 % Platelet Count 383 150 - 400 K/UL MPV 7.3 7 - 11 FL Neutrophils 93 (H) 41 - 77 % Lymphocytes 6 (L) 24 - 44 % Monocytes 1 (L) 4 - 12 % Eosinophils 0 0 - 5 % Basophils 0 0 - 2 % Absolute Neutrophil Count 7.40 (H) 1.8 - 7.0 K/UL Absolute Lymph Count 0.50 (L) 1.0 - 4.8 K/UL Absolute Monocyte Count 0.10 0 - 0.80 K/UL Absolute Eosinophil Count 0.00 0 - 0.45 K/UL Absolute Basophil Count 0.00 0 - 0.20 K/UL Specimen Performing Laboratory [facility] [address] [place] [address] * COMPREHENSIVE METABOLIC PANEL (11/14/2017 6:12 PM) Component Value Ref Range Sodium 138 137 - 147 MMOL/L Potassium 3.9 3.5 - 5.1 MMOL/L Chloride 101 98 - 110 MMOL/L Glucose 130 (H) 70 - 100 MG/DL Blood Urea Nitrogen 18 7 - 25 MG/DL Creatinine 0.81 0.4 - 1.00 MG/DL Calcium 8.9 8.5 - 10.6 MG/DL Total Protein 6.2 6.0 - 8.0 G/DL Total Bilirubin 0.4 0.3 - 1.2 MG/DL Albumin 3.3 (L) 3.5 - 5.0 G/DL Alk Phosphatase 41 25 - 110 U/L AST (SGOT) 17 7 - 40 U/L CO2 27 21 - 30 MMOL/L ALT (SGPT) 15 7 - 56 U/L Anion Gap 10 3 - 12 eGFR Non >60 >60 [...] Pharmacist for questions. Specimen Performing Laboratory [facility] [address] [place], [place] [id number] * MAGNESIUM (11/14/2017 6:12 PM) Component Value Ref Range Magnesium 2.1 1.6 - 2.6 mg/dL Specimen Performing Laboratory [facility] [address] [place] [id number] * PHOSPHORUS (11/14/2017 6:12 PM) Component Value Ref Range Phosphorus 4.5 (H) 2.0 - 4.0 MG/DL Specimen Performing Laboratory [facility] [address] [place], [place] [id number] * PTT (APTT) (11/14/2017 6:12 PM) Component Value Ref Range APTT 27.7 21.0 - 39.0 SEC Specimen Performing Laboratory [facility] [address] [place] [address] * PROTIME INR (PT) (11/14/2017 6:12 PM) Component Value Ref Range INR 1.2 0.8 - 1.2 Specimen Performing Laboratory [facility] [address] [place], [place] [id number] * BRONCHOSCOPY (11/14/2017 2:52 PM) Component Value Ref Range Provation Report Patient Name: Jonathon Jay Procedure Date: 11/14/2017 2:52 PM [facility]: [id number] Date of : 1945 Gender: Female Attending Physician: Kaushik Gutierrez MD Procedure: Bronchoscopy Indications: Mediastinal mass Providers: Kaushik Gutierrez MD (Doctor), Ting Stafford, RN (Nurse), Gloria Day, RN (Nurse), Oscar No, Traffic Line Painter (Techn ician) Referring Physician: Leyla Lopez Medications: [...] Antibody Screen NEG Specimen Performing Laboratory [facility] [address] [place] [address] * PROTIME INR (PT) (11/14/2017 12:30 PM) Component Value Ref Range INR 1.2 0.8 - 1.2 Specimen Performing Laboratory [facility] [address] [place] [address] * FINE NEEDLE ASPIRATE (FNA) (11/14/2017 9:04 AM) Component Value Ref Range Cytology [facility] [email or web address] Department of Pathology and Laboratory Medicine [address] [place] [id number] Surgical Pathology Office: [phone] CYTOLOGY REPORT NAME: JONATHON JAY SURG PATH #: [id number] MR #: [id number] ALT ID #: [id number] #: [id number] LOCATION: 63 DATE OF PROCEDURE: 11/14/2017 AGE: 72 SEX: F DATE RECEIVED: 11/15/2017 : 1945 TIME RECEIVED: 09:04 PHYSICIAN: KAUSHIK GUTIERREZ DATE OF REPORT: 11/16/2017 COPY TO: KENYA RAMEY MD BRICE J ZOGLEMAN, MD CROSSER, [facility] DATE OF PRINTIN11/16/2017 Material Received: A: FNA Lung-Right Mainstem History: 72 year old female, history of large mediastinal mass. Gross Description: ( 4 DQ direct smear, 4 Pap direct smear, 1 cell block) Rapid determination of adequacy was performed by the paint roller assembler, TANNER, on Diff-Quik stained slide(s). Pass one, two and three not adequate for evaluation. Pass four adequate for evaluation. Pass five, six, and seven into RPMI. ################################################## ###################### Final Diagnosis: A. 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 See comment. Please also see concurrent cytology report ([id number]). Comment: Extensive crush artifact is present. Immunohistochemical stains for figueredo-cytokeratin, CAM5.2, CD34, desmin, TTF-1, PAX-8, SOX-10, calretinin, and Ki-67 performed on the cell block are non-contributory due to a lack of lesional tissue. A biopsy/more extensive sampling is recommended for a definitive diagnosis. Pursuant to the Material Handler Loader Program at the [facility] Pathology Department, selected slides from this [...] Specimen Performing Laboratory [facility] RESULTS * COMPREHENSIVE METABOLIC PANEL (11/14/2017 5:34 AM) Component Value Ref Range Sodium 137 137 - 147 MMOL/L Potassium 3.5 3.5 - 5.1 MMOL/L Chloride 100 98 - 110 MMOL/L Glucose 119 (H) 70 - 100 MG/DL Blood Urea Nitrogen 20 7 - 25 MG/DL Creatinine 0.80 0.4 - 1.00 MG/DL Calcium 9.4 8.5 - 10.6 MG/DL Total Protein 6.6 6.0 - 8.0 G/DL Total Bilirubin 0.4 0.3 - 1.2 MG/DL Albumin 3.4 (L) 3.5 - 5.0 G/DL Alk Phosphatase 49 25 - 110 U/L AST (SGOT) 13 7 - 40 U/L CO2 29 21 - 30 MMOL/L ALT (SGPT) 17 7 - 56 U/L Anion Gap 8 [...] Pharmacist for questions. Specimen Performing Laboratory [facility] [address] [place] [address] * CBC AND DIFF (11/14/2017 5:34 AM) Component Value Ref Range White Blood Cells 8.1 4.5 - 11.0 K/UL RBC 4.58 4.0 - 5.0 M/UL Hemoglobin 12.6 12.0 - 15.0 GM/DL Hematocrit 39.3 36 - 45 % MCV 86.0 80 - 100 FL MCH 27.6 26 - 34 PG MCHC 32.1 32.0 - 36.0 G/DL RDW 15.4 (H) 11 - 15 % Platelet Count 425 (H) 150 - 400 K/UL MPV 6.9 (L) 7 - 11 FL Neutrophils 71 41 - 77 % Lymphocytes 21 (L) 24 - 44 % Monocytes 6 4 - 12 % Eosinophils 1 0 - 5 % Basophils 1 0 - 2 % Absolute Neutrophil Count 5.80 1.8 - 7.0 K/UL Absolute Lymph Count 1.70 1.0 - 4.8 K/UL Absolute Monocyte Count 0.50 0 - 0.80 K/UL Absolute Eosinophil Count 0.10 0 - 0.45 K/UL Absolute Basophil Count 0.00 0 - 0.20 K/UL Specimen Performing Laboratory [facility] [address] [place] [address] * CHEST 2 VIEWS (11/13/2017 7:00 AM) [...] Interface, Radiant Results - 11/13/2017 12:02 PM SENIOR INTERNET SALES CONSULTANT Procedure: CHEST 2 VIEWS Clinical Indication: [...] Browning M.D. on 11/13/2017 8:59 AM. * COMPREHENSIVE METABOLIC PANEL (11/13/2017 6:02 AM) Component Value Ref Range Sodium 140 137 - 147 MMOL/L Potassium 3.7 3.5 - 5.1 MMOL/L Chloride 103 98 - 110 MMOL/L Glucose 108 (H) 70 - 100 MG/DL Blood Urea Nitrogen 17 7 - 25 MG/DL Creatinine 0.73 0.4 - 1.00 MG/DL Calcium 8.8 8.5 - 10.6 MG/DL Total Protein 5.9 (L) 6.0 - 8.0 G/DL Total Bilirubin 0.6 0.3 - 1.2 MG/DL Albumin 3.1 (L) 3.5 - 5.0 G/DL Alk Phosphatase 40 25 - 110 U/L AST (SGOT) 12 7 - 40 U/L CO2 31 (H) 21 - 30 MMOL/L ALT (SGPT) 14 7 - 56 U/L Anion Gap 6 3 - 12 eGFR Non >60 >60 [...] Performing Laboratory [facility] [address] [place] [address] * CBC AND DIFF (11/13/2017 6:02 AM) Component Value Ref Range White Blood Cells 6.2 4.5 - 11.0 K/UL RBC 4.15 4.0 - 5.0 M/UL Hemoglobin 11.5 (L) 12.0 - 15.0 GM/DL Hematocrit 35.5 (L) 36 - 45 % MCV 85.4 80 - 100 FL MCH 27.6 26 - 34 PG MCHC 32.3 32.0 - 36.0 G/DL RDW 15.3 (H) 11 - 15 % Platelet Count 315 150 - 400 K/UL MPV 6.9 (L) 7 - 11 FL Neutrophils 70 41 - 77 % Lymphocytes 21 (L) 24 - 44 % Monocytes 8 4 - 12 % Eosinophils 1 0 - 5 % Basophils 0 0 - 2 % Absolute Neutrophil Count 4.30 1.8 - 7.0 K/UL Absolute Lymph Count 1.30 1.0 - 4.8 K/UL Absolute Monocyte Count 0.50 0 - 0.80 K/UL Absolute Eosinophil Count 0.10 0 - 0.45 K/UL Absolute Basophil Count 0.00 0 - 0.20 K/UL Specimen Performing Laboratory [facility] [address] [place] [address] * ENDOSCOPIC ULTRASOUND REPORT (11/12/2017 6:12 PM) Component Value Ref Range Provation Report Patient Name: Pierre Garner Procedure Date: 11/12/2017 6:12 PM CSN: [id number] Date of : 1945 Gender: Female Attending Physician: Michael Wade MD Procedure: Upper EUS Indications: Gorman spected mass in mediastinum on chest CT Providers: Michael Wade MD (Doctor), Truong Burrell MD (Fellow), Miri Hairston (Nurse), Randi Levin Traffic Line Painter (Traffic Line Painter) Referring Physician: Referral Self Medications: Mo nitored [...] 23 seconds Procedure Code(s): --- Professional --- 20507, Esophagogastroduodenoscopy, flexible, transoral; with endoscopic ultrasound examination, including the esophagus, stomach, and either the duodenum or a surgically altered stomach where the jejunum is examined distal to the anastomosis Diagnosis Code(s): --- Professional --- J98.59, Other diseases of mediastinum, not elsewhere classified R93.8, Abnormal findings on diagnostic imaging of other specified body structures CPT copyright 2016 [employer]. All rights reserved. The codes documented in this report are preliminary and upon triage rn review may be revised to meet current [...] Specimen Performing Laboratory [facility] OTHER RESULTS * COMPREHENSIVE METABOLIC PANEL (11/12/2017 5:14 AM) Component Value Ref Range Sodium 137 137 - 147 MMOL/L Potassium 3.8 3.5 - 5.1 MMOL/L Chloride 102 98 - 110 MMOL/L Glucose 114 (H) 70 - 100 MG/DL Blood Urea Nitrogen 20 7 - 25 MG/DL Creatinine 0.90 0.4 - 1.00 MG/DL Calcium 8.6 8.5 - 10.6 MG/DL Total Protein 5.9 (L) 6.0 - 8.0 G/DL Total Bilirubin 0.5 0.3 - 1.2 MG/DL Albumin 3.1 (L) 3.5 - 5.0 G/DL Alk Phosphatase 41 25 - 110 U/L AST (SGOT) 14 7 - 40 U/L CO2 28 21 - 30 MMOL/L ALT (SGPT) 14 7 - 56 U/L Anion Gap 7 3 - 12 eGFR Non >60 >60 [...] Performing Laboratory [facility] [address] [place] [address] * CBC AND DIFF (11/12/2017 5:14 AM) Component Value Ref Range White Blood Cells 7.2 4.5 - 11.0 K/UL RBC 4.05 4.0 - 5.0 M/UL Hemoglobin 11.3 (L) 12.0 - 15.0 GM/DL Hematocrit 34.6 (L) 36 - 45 % MCV 85.5 80 - 100 FL MCH 28.0 26 - 34 PG MCHC 32.7 32.0 - 36.0 G/DL RDW 15.0 11 - 15 % Platelet Count 327 150 - 400 K/UL MPV 7.2 7 - 11 FL Neutrophils 76 41 - 77 % Lymphocytes 16 (L) 24 - 44 % Monocytes 7 4 - 12 % Eosinophils 1 0 - 5 % Basophils 0 0 - 2 % Absolute Neutrophil Count 5.50 1.8 - 7.0 K/UL Absolute Lymph Count 1.10 1.0 - 4.8 K/UL Absolute Monocyte Count 0.50 0 - 0.80 K/UL Absolute Eosinophil Count 0.00 0 - 0.45 K/UL Absolute Basophil Count 0.00 0 - 0.20 K/UL Specimen Performing Laboratory [facility] [address] [place] [address] * COMPREHENSIVE METABOLIC PANEL (11/11/2017 5:33 AM) Component Value Ref Range Sodium 137 137 - 147 MMOL/L Potassium 3.5 3.5 - 5.1 MMOL/L Chloride 100 98 - 110 MMOL/L Glucose 114 (H) 70 - 100 MG/DL Blood Urea Nitrogen 16 7 - 25 MG/DL Creatinine 0.76 0.4 - 1.00 MG/DL Calcium 8.7 8.5 - 10.6 MG/DL Total Protein 6.4 6.0 - 8.0 G/DL Total Bilirubin 0.6 0.3 - 1.2 MG/DL Albumin 3.4 (L) 3.5 - 5.0 G/DL Alk Phosphatase 43 25 - 110 U/L AST (SGOT) 15 7 - 40 U/L CO2 29 21 - 30 MMOL/L ALT (SGPT) 20 7 - 56 U/L Anion Gap 8 [...] Pharmacist for questions. Specimen Performing Laboratory [facility] [address] [place] [address] * CBC AND DIFF (11/11/2017 5:33 AM) Component Value Ref Range White Blood Cells 7.8 4.5 - 11.0 K/UL RBC 4.42 4.0 - 5.0 M/UL Hemoglobin 12.6 12.0 - 15.0 GM/DL Hematocrit 36.6 36 - 45 % MCV 82.8 80 - 100 FL MCH 28.4 26 - 34 PG MCHC 34.3 32.0 - 36.0 G/DL RDW 15.4 (H) 11 - 15 % Platelet Count 373 150 - 400 K/UL MPV 7.0 7 - 11 FL Neutrophils 72 41 - 77 % Lymphocytes 20 (L) 24 - 44 % Monocytes 7 4 - 12 % Eosinophils 1 0 - 5 % Basophils 0 0 - 2 % Absolute Neutrophil Count 5.60 1.8 - 7.0 K/UL Absolute Lymph Count 1.50 1.0 - 4.8 K/UL Absolute Monocyte Count 0.50 0 - 0.80 K/UL Absolute Eosinophil Count 0.10 0 - 0.45 K/UL Absolute Basophil Count 0.00 0 - 0.20 K/UL Specimen Performing Laboratory [facility] [address] [place] [address] * COMPREHENSIVE METABOLIC PANEL (11/10/2017 4:36 AM) Component Value Ref Range Sodium 135 (L) 137 - 147 MMOL/L Potassium 3.4 (L) 3.5 - 5.1 MMOL/L Chloride 100 98 - 110 MMOL/L Glucose 128 (H) 70 - 100 MG/DL Blood Urea Nitrogen 14 7 - 25 MG/DL Creatinine 0.81 0.4 - 1.00 MG/DL Calcium 8.3 (L) 8.5 - 10.6 MG/DL Total Protein 5.7 (L) 6.0 - 8.0 G/DL Total Bilirubin 0.8 0.3 - 1.2 MG/DL Albumin 3.2 (L) 3.5 - 5.0 G/DL Alk Phosphatase 41 25 - 110 U/L AST (SGOT) 14 7 - 40 U/L CO2 28 21 - 30 MMOL/L ALT (SGPT) 20 7 - 56 U/L Anion Gap 7 3 - 12 eGFR Non >60 >60 [...] Pharmacist for questions. Specimen Performing Laboratory [facility] [address] [place] [address] * CBC AND DIFF (11/10/2017 4:36 AM) Component Value Ref Range White Blood Cells 7.5 4.5 - 11.0 K/UL RBC 4.16 4.0 - 5.0 M/UL Hemoglobin 11.8 (L) 12.0 - 15.0 GM/DL Hematocrit 35.4 (L) 36 - 45 % MCV 85.0 80 - 100 FL MCH 28.2 26 - 34 PG MCHC 33.2 32.0 - 36.0 G/DL RDW 15.0 11 - 15 % Platelet Count 315 150 - 400 K/UL MPV 7.4 7 - 11 FL Neutrophils 76 41 - 77 % Lymphocytes 16 (L) 24 - 44 % Monocytes 7 4 - 12 % Eosinophils 1 0 - 5 % Basophils 0 0 - 2 % Absolute Neutrophil Count 5.70 1.8 - 7.0 K/UL Absolute Lymph Count 1.20 1.0 - 4.8 K/UL Absolute Monocyte Count 0.60 0 - 0.80 K/UL Absolute Eosinophil Count 0.10 0 - 0.45 K/UL Absolute Basophil Count 0.00 0 - 0.20 K/UL Specimen Performing Laboratory [facility] [address] [place] [address] * NON-LABOR AND EMPLOYMENT PAR[place]GAL CYTOLOGY (BODY FLUIDS/TISSUE) (11/09/2017 2:22 PM) Component Value Ref Range Cytology [facility] [email or web address] Department of Pathology and Laboratory Medicine [address] [place] [address] Surgical Pathology Office: [phone] CYTOLOGY REPORT NAME: JONATHON JAY CYTOLOGY #: [id number] MR #: [id number] ALT ID #: BILLING #: [id number] LOCATION: DATE OF PROCEDURE: 11/09/2017 AGE: 72 SEX: [...] Interface, Radiant Results - 11/09/2017 5:41 PM SENIOR INTERNET SALES CONSULTANT PET/CT NECK, CHEST, ABDOMEN AND PELVIS [...] effusion MEDICATIONS: 5 mL subcutaneous 2% lidocaine LICENSED LOAN OFFICER ASSISTANT: Amadou Kaur M.D., M.D. The risks, benefits, and alternatives to [...] Interface, Radiant Results - 11/12/2017 10:39 AM SENIOR INTERNET SALES CONSULTANT Ultrasound-guided Thoracentesis CLINICAL INDICATION: Symptomatic pleural effusion MEDICATIONS: 5 mL subcutaneous 2% lidocaine LICENSED LOAN OFFICER ASSISTANT: Matthew Bejarano M.D., Amadou Zeng M.D. The [...] Interface, Radiant Results - 11/09/2017 12:28 PM SENIOR INTERNET SALES CONSULTANT Chest, single view with inspiration and [...] Interface, Radiant Results - 11/09/2017 5:47 PM SENIOR INTERNET SALES CONSULTANT CHEST IMMEDIATE POST PROCEDURE INSP/EXP Clinical [...] Gonzalez M.D. on 11/09/2017 11:01 AM. * GRAM STAIN (11/09/2017 10:36 AM) Component Value Ref Range Battery Name GRAM STAIN Specimen Description THORACENTESIS FLUID Special Requests NONE Gram Stain FEW NEUTROPHILS NO ORGANISMS SEEN Report Status FINAL 11/09/2017 Specimen Performing Laboratory Thoracentesis Fluid MAIN LAB [address] [place] [address] * PLEURAL FLUID TOTAL PROTEIN (11/09/2017 10:36 AM) Component Value Ref Range Pleural Fluid Total 3.6 (H)Comment: Serum to pleural fluid protein <1.1 g/ dL Protein gradient >3.1 g/dL is suggestive of an exudate Specimen Performing Laboratory Pleural fluid - MAIN LAB Thoracentesis Fluid [address] [place] [address] * PLEURAL FLUID PH (11/09/2017 10:36 AM) Component Value Ref Range Pleural Fluid Ph 7.45 (L) 7.60 - 7.66 Specimen Performing Laboratory Pleural fluid [facility] Thoracentesis Fluid [address] [place] [address] * PLEURAL FLUID LACTATE DEHYDROGENASE (11/09/2017 10:36 AM) Component Value Ref Range Pleural Fluid Lactate 398 (H)Comment: Higher levels suggestive of 67 - 140 U/L Dehydrogenase exudate Specimen Performing Laboratory Pleural fluid [facility] Thoracentesis Fluid [address] [place] [address] * PLEURAL FLUID GLUCOSE (11/09/2017 10:36 AM) Component Value Ref Range Pleural Fluid Glucose 102 (H) 70 - 100 mg/dL Comment: Glucose <60 mg/dL associated with parapneumonic effusion, tuberculosis, malignancy, empyema, and rheumatoid disease Specimen Performing Laboratory Pleural fluid [facility] MAIN LAB Thoracentesis Fluid [address] [place] [address] * PLEURAL FLUID ALBUMIN (11/09/2017 10:36 AM) Component Value Ref Range Pleural Fluid Albumin 2.4Comment: Pleural fluid albumin gradient >1.2 g/ dL g/dL is suggestive of an exudate Specimen Performing Laboratory Pleural fluid [facility] Thoracentesis Fluid [address] [place] [address] * CULTURE-WOUND/TISSUE/FLUID(AEROBIC ONLY)W/SENSITIVITY (11/09/2017 10:36 AM) Component Value Ref Range Battery Name ROUTINE CULTURE Specimen Description THORACENTESIS FLUID Special Requests NONE Direct Gram Stain FEW NEUTROPHILS NO ORGANISMS SEEN Culture NO GROWTH 5 DAYS Report Status FINAL 11/14/2017 Specimen Performing Laboratory Pleural fluid [facility] Thoracentesis Fluid [address] [place] [id number] * CULTURE-ANAEROBIC (11/09/2017 10:36 AM) Component Value Ref Range Battery Name ANAEROBE CULTURE Specimen Description THORACENTESIS FLUID Special Requests NONE Culture NO ANAEROBES ISOLATED Report Status FINAL 11/14/2017 Specimen Performing Laboratory Pleural fluid [facility] MAIN LAB Thoracentesis Fluid [address] [place] [address] * CELL COUNT W/DIFF-FLUIDS (11/09/2017 10:36 AM) [...] report. Specimen Performing Laboratory Pleural fluid - [facility] Thoracentesis Fluid [address] [place] [id number] * LEGIONELLA ANTIGEN URINE,RAN (11/09/2017 7:22 AM) Component Value Ref Range Battery Name LEGIONELLA URINE ANTIGEN Specimen Description URINE Special Requests NONE Antigen NEGATIVE Report Status FINAL 11/09/2017 Specimen Performing Laboratory Urine [facility] [address] [place] [address] * STREPTOCOCCUS PNEUMO AG, URINE (11/09/2017 7:22 AM) Component Value Ref Range Battery Name STREP PNEUMO AG, UR Specimen Description URINE Special Requests NONE Antigen NEGATIVE Report Status FINAL 11/09/2017 Specimen Performing Laboratory Urine [facility] [address] [place] [address] * RVP VIRAL PANEL PCR (11/09/2017 3:05 [...] NOT DETECTED Specimen Performing Laboratory Nasopharyngeal Swab [facility] [address] [place], [place] [id number] * BNP (B-TYPE NATRIURETIC PEPTI) (11/09/2017 2:55 AM) Component Value Ref Range B Type Natriuretic 28.0 0 - 100 PG/ML Peptide Specimen Performing Laboratory Blood [facility] [address] [place] [address] * CULTURE-BLOOD W/SENSITIVITY (11/09/2017 2:55 AM) Component Value Ref Range Battery Name BLOOD CULTURE Specimen Description BLOOD RIGHT FA Special Requests NONE Culture NO GROWTH 5 DAYS Report Status FINAL 11/15/2017 Specimen Performing Laboratory [facility] [address] [place] [id number] * CULTURE-BLOOD W/SENSITIVITY (11/09/2017 2:55 AM) Component Value Ref Range Battery Name BLOOD CULTURE Specimen Description BLOOD LEFT ANTECUBITAL Special Requests NONE Culture NO GROWTH 5 DAYS Report Status FINAL 11/15/2017 Specimen Performing Laboratory [facility] [address] [place] [id number] * TSH WITH FREE T4 REFLEX (11/09/2017 2:55 AM) Component Value Ref Range TSH 1.008 0.35 - 5.00 MCU/ML Specimen Performing Laboratory [facility] [address] [place], [place] [id number] * TROPONIN-I (11/09/2017 2:55 AM) Component Value Ref Range Troponin-I 0.01 0.0 - 0.05 NG/ML Specimen Performing Laboratory [facility] [address] [place] [address] * COMPREHENSIVE METABOLIC PANEL (11/09/2017 2:55 AM) Component Value Ref Range Sodium 139 137 - 147 MMOL/L Potassium 3.7 3.5 - 5.1 MMOL/L Chloride 104 98 - 110 MMOL/L Glucose 116 (H) 70 - 100 MG/DL Blood Urea Nitrogen 14 7 - 25 MG/DL Creatinine 0.71 0.4 - 1.00 MG/DL Calcium 9.0 8.5 - 10.6 MG/DL Total Protein 6.3 6.0 - 8.0 G/DL Total Bilirubin 0.6 0.3 - 1.2 MG/DL Albumin 3.5 3.5 - 5.0 G/DL Alk Phosphatase 47 25 - 110 U/L AST (SGOT) 18 7 - 40 U/L CO2 26 21 - 30 MMOL/L ALT (SGPT) 24 7 - 56 U/L Anion Gap 9 3 - 12 eGFR Non >60 >60 [...] Pharmacist for questions. Specimen Performing Laboratory [facility] [address] [place] [id number] * PROTIME INR (PT) (11/09/2017 2:55 AM) Component Value Ref Range INR 1.1 0.8 - 1.2 Specimen Performing Laboratory [facility] [address] [place] [address] * CBC AND DIFF (11/09/2017 2:55 AM) Component Value Ref Range White Blood Cells 7.1 4.5 - 11.0 K/UL RBC 4.36 4.0 - 5.0 M/UL Hemoglobin 12.1 12.0 - 15.0 GM/DL Hematocrit 37.0 36 - 45 % MCV 85.0 80 - 100 FL MCH 27.7 26 - 34 PG MCHC 32.6 32.0 - 36.0 G/DL RDW 15.1 (H) 11 - 15 % Platelet Count 309 150 - 400 K/UL MPV 7.1 7 - 11 FL Neutrophils 68 41 - 77 % Lymphocytes 23 (L) 24 - 44 % Monocytes 7 4 - 12 % Eosinophils 1 0 - 5 % Basophils 1 0 - 2 % Absolute Neutrophil Count 4.90 1.8 - 7.0 K/UL Absolute Lymph Count 1.60 1.0 - 4.8 K/UL Absolute Monocyte Count 0.50 0 - 0.80 K/UL Absolute Eosinophil Count 0.00 0 - 0.45 K/UL Absolute Basophil Count 0.00 0 - 0.20 K/UL Specimen Performing Laboratory Blood [facility] [address] [place] [address] * GENERAL RAD CHEST EXTERNAL IMAGING (11/08/2017 5:05 PM) Narrative This order has been auto finalized and does not contain a result. * CT CHEST EXTERNAL IMAGING (11/08/2017) Narrative This order has been auto finalized and does not contain a result. in this encounter Visit Diagnoses Diagnosis Lung mass - Primary Swelling, mass, or lump in chest Diagnosis unknown Other unknown and unspecified cause of morbidity or mortality Mediastinal mass Swelling, mass, or lump in chest Acute hypoxemic respiratory failure (HCC) Community acquired pneumonia Pneumonia, organism unspecified Atelectasis of right lung Pulmonary collapse Pleural effusion on right Unspecified pleural effusion Admitting Diagnoses Diagnosis hypoxia with poss sarcoma rt lung Mediastinal mass Mediastinal mass - Mediastinal mass Swelling, mass, or lump in chest Lung mass - Mediastinal mass Swelling, mass, or lump in chest Administered Medications Medication Order MAR Action Action Date Dose Rate Site acetaminophen (TYLENOL) tablet 650 mg Given 11/13/2017 650 mg 650 mg, Oral, EVERY 6 HOURS PRN, 06:23 SENIOR INTERNET SALES CONSULTANT Starting Sun11/09/17 at 0218, Until 11/17/17 at 1909, Pain non-opioid: may be used alone or in combination with opioid analgesia, TOTAL ACETAMINOPHEN DOSE NOT TO EXCEED 4GM DAILY Given 11/13/2017 650 mg 12:33 SENIOR INTERNET SALES CONSULTANT Given 11/13/2017 650 mg 20:01 SENIOR INTERNET SALES CONSULTANT cyclobenzaprine (FLEXERIL) tablet 5 mg Given 11/12/2017 5 mg 5 mg, Oral, ONCE, 1 dose, 11/12/17 at 21:19 SENIOR INTERNET SALES CONSULTANT 2115 cyclobenzaprine (FLEXERIL) tablet 5 mg Given 11/13/2017 5 mg 5 mg, Oral, THREE TIMES DAILY PRN, 20:00 SENIOR INTERNET SALES CONSULTANT Starting Sun11/13/17 at 1020, Until Sun11/14/17 at 1735, Muscle Cramps, Spasms Given 11/14/2017 5 mg 08:03 SENIOR INTERNET SALES CONSULTANT Given 11/14/2017 5 mg 12:24 SENIOR INTERNET SALES CONSULTANT docusate (COLACE) capsule 100 mg Given 11/09/2017 100 mg 100 mg, Oral, DAILY, First dose on Sun 08:52 SENIOR INTERNET SALES CONSULTANT 11/09/17 at 0900, Until Discontinued, Hold for loose stools. enalapril (VASOTEC) tablet 10 mg Given 11/12/2017 10 mg 10 mg, Oral, DAILY, First dose on Sun 09:18 SENIOR INTERNET SALES CONSULTANT 11/09/17 at 0900, Until Discontinued Given 11/13/2017 10 mg 09:04 SENIOR INTERNET SALES CONSULTANT Given 11/14/2017 10 mg 08:03 SENIOR INTERNET SALES CONSULTANT enalapril (VASOTEC) tablet 10 mg Given 11/16/2017 10 mg 10 mg, Oral, DAILY, First dose on Sun 08:01 SENIOR INTERNET SALES CONSULTANT 11/16/17 at 0900, Until Discontinued Given 11/17/2017 10 mg 08:55 SENIOR INTERNET SALES CONSULTANT enoxaparin (LOVENOX) syringe 40 mg Given 11/10/2017 40 mg Arm, Right 40 mg, Subcutaneous, DAILY, First dose 20:29 SENIOR INTERNET SALES CONSULTANT on 11/10/17 at 2100, Until Discontinued, For patients undergoing surgery: Consult physician in advance -- enoxaparin is an anticoagulant and may need to be held for 12hr prior to surgery or invasive procedures. NOTE: This is a HIGH ALERT Medication. fentaNYL citrate PF (SUBLIMAZE) Given 11/09/2017 50 mcg injection 50 mcg 11:03 SENIOR INTERNET SALES CONSULTANT 50 mcg, Intravenous, ONCE, 1 dose, Sun11/09/17 at 1100 hydroCHLOROthiazide (HYDRODIURIL) tablet Given 11/11/2017 12.5 mg 12.5 mg 08:17 SENIOR INTERNET SALES CONSULTANT 12.5 mg, Oral, EVERY MORNING, First dose on Sun11/09/17 at 0900, Until Discontinued Given 11/12/2017 12.5 mg 09:18 SENIOR INTERNET SALES CONSULTANT Given 11/13/2017 12.5 mg 09:04 SENIOR INTERNET SALES CONSULTANT hydroCHLOROthiazide (HYDRODIURIL) tablet Given 11/16/2017 12.5 mg 12.5 mg 08:01 SENIOR INTERNET SALES CONSULTANT 12.5 mg, Oral, DAILY, First dose on Sun11/16/17 at 0900, Until Discontinued Given 11/17/2017 12.5 mg 08:55 SENIOR INTERNET SALES CONSULTANT lactated ringers infusion Given - New 11/14/2017 1,000 mL 20 mL/hr 1,000 mL, 1,000 mL, Intravenous, at 20 Bag 13:30 SENIOR INTERNET SALES CONSULTANT mL/hr, ONCE, 1 dose, Sun11/14/17 at 1330, GI Procedure Area Only levofloxacin (LEVAQUIN) 750 mg/150 mL Given - New 11/09/2017 750 mg IVPB Bag 03:52 SENIOR INTERNET SALES CONSULTANT 750 mg, 150 mL, Administer over 90 Minutes, Intravenous, EVERY 24 HOURS, First dose on Sun11/09/17 at 0330, Until Discontinued Given - New Bag 11/10/2017 750 mg 03:04 SENIOR INTERNET SALES CONSULTANT levothyroxine (SYNTHROID) tablet 137 mcg Given 11/15/2017 137 mcg 137 mcg, Oral, DAILY 30MIN BEFORE 08:18 SENIOR INTERNET SALES CONSULTANT BREAKFAST, First dose on Sun11/09/17 at 0630, Until Discontinued, Give 1 hour before a meal. If patient is receiving tube feedings, hold tube feed 1hr before and 1hr after dose. Given 11/16/2017 137 mcg 07:52 SENIOR INTERNET SALES CONSULTANT Given 11/17/2017 137 mcg 06:13 SENIOR INTERNET SALES CONSULTANT nystatin (MYCOSTATIN) topical cream Given 11/10/2017 Topical, TWICE DAILY PRN, Starting Sat 21:26 SENIOR INTERNET SALES CONSULTANT 11/10/17 at 2055, Until 11/17/17 at 1909, Rash, Right Breast Given 11/13/2017 20:02 SENIOR INTERNET SALES CONSULTANT Given 11/13/2017 20:04 SENIOR INTERNET SALES CONSULTANT RP DX F-18 FDG injection 15 millicurie Given 11/09/2017 16.5 15 millicurie, Intravenous, ONCE, 1 11:30 SENIOR INTERNET SALES CONSULTANT millicuries dose, 11/09/17 at 1130 tetracaine 2% in chlorobutanol 0.4% Given 11/12/2017 15 mL solution 15 mL 18:06 SENIOR INTERNET SALES CONSULTANT 15 mL, Oral, ONCE, 1 dose, 11/12/17 at 1815, GI Procedure Area Only triamcinolone acetonide (KENALOG) 0.1 % Given 11/15/2017 topical ointment 20:18 SENIOR INTERNET SALES CONSULTANT Topical, TWICE DAILY, First dose on 11/11/17 at 1100, Until Discontinued, Apply to right chest Given 11/16/2017 10:00 SENIOR INTERNET SALES CONSULTANT Given 11/17/2017 06:13 SENIOR INTERNET SALES CONSULTANT verapamil SR (CALAN-SR) tablet 240 mg Given 11/12/2017 240 mg 240 mg, Oral, DAILY, First dose on Sun 09:18 SENIOR INTERNET SALES CONSULTANT 11/09/17 at 0900, Until Discontinued Given 11/13/2017 240 mg 09:04 SENIOR INTERNET SALES CONSULTANT Given 11/14/2017 240 mg 08:03 SENIOR INTERNET SALES CONSULTANT in this encounter
--- OUTSIDE RECORDS SUMMARY | 2017-11-26 14:37 | XMS REPORT | Encounter Summary ---
Author Author [facility] Organization [facility] Address Unknown Phone Unavailable Care Team Providers Care Tile And Marble Setter Name Role Phone Tad Campbell MD PCP Encounter Details Date Type Department Care Team Description 11/13/2017 Prep for Case [facility] Kaushik Gutierrez MD Lung mass (Primary Dx) Physicians - Internal [address] [facility] [place] [address] [place] [address] [address] [facility] [phone] [place] [address] Social History Tobacco Use Types Packs/Day Years [...] on fileas of this encounter Visit Diagnoses Diagnosis Lung mass - Primary Swelling, mass, or lump in chest
--- OUTSIDE RECORDS SUMMARY | 2017-11-26 14:37 | XMS REPORT | Encounter Summary ---
Author Author [facility] Organization [facility] Address Unknown Phone Unavailable Care Team Providers Care Skiver Operator Name Role Phone Tad Campbell MD PCP Reason for Visit * Auth/Cert Status Reason Specialty Diagnoses / Referred By Referred To Procedures Contact Contact Diagnoses hypoxia with poss sarcoma rt lung Mediastinal mass Encounter Details Date Type Department Care Team Description 11/14/2017 Anesthesia Gastrointenstinal Hien Ha, [facility] Endoscopy [address] [place] [address] Anesthesia Record Procedure Name Responsible Anesthesia Start Time Anesthesia Stop Time Anesthesiologist BRONCHOSCOPY WITH Prabha Weber DO 11/14/17 1532 11/14/17 1740 ULTRASOUND (N/A ) Date Time Event Comment 1442 AN Equip Check 2017 1532 Anes Start 1532 An Start Data 1537 An Induction The patient was reevaluated immediately before moderate or deep sedation use and before anesthesia induction. 1539 An Intubation 1542 Anesthesia Ready 1544 Proc Start 1632 An Extubation 1724 an stop data 1736 Handoff to RN I completed my SBAR handoff to the receiving nurse. 1740 An Stop Meds Name Total fentaNYL PF (SUBLIMAZE) injection 100 mcg lidocaine (2%) 200 mg/10mL Injection 50 mg syringe propofol (DIPRIVAN) 200 mg/ 20 mL 200 mg injection (VIAL) succinylcholine (ANECTINE) injection 100 mg (VIAL) ondansetron (ZOFRAN) injection 4 mg dexamethasone (DECADRON) 4 mg/mL 4 mg injection phenylephrine (ALTA-SYNEPHRINE) 0.1 mg/mL 600 mcg injection (SYRINGE) ePHEDrine 50 mg/mL 50 mg in sodium 50 mg chloride PF 0.9% 5 mL IV syringe lactated ringers infusion (1000 mL bag) 400 mL * Name O2 N2O Inspired N2O Sevoflurane Inspired Sevoflurane * No blood administrations on file. Type Details Placement Removal Wounds 11/09/17; 1044; Right, Lower; Back; 11/09/17 1044 by Yen, 03/27 194 by Frame, (NOT for Puncture Wound; 11/14/17; 1948 AC Hazel, AC Pressure Injuries) Peripheral 11/12/17; 1020; IV Therapy; L; Forearm; 11/12/17 1020 by Shahriar , 11/17/17 1624 by Steven IV 20 G; No; Ultrasound; 1; 1.25 inches; AC Rojas, AC 11/17/17; 1624 Peripheral 11/14/17; 1232; IV Therapy; L; Inner; 11/14/17 1232 by Johan, 11/17/17 1624 by ALEJANDRA Harris Forearm; 22 G (labs drawn and labeled at Sabrina, AC Nichole, AC bedside); No; 1; 11/17/17; 1624 ETT 11/14/17; 1539; Ventilated by mask (1); 11/14/17 1539 by Nano, 1632 by Nano, Direct laryngoscopy, Stylet; UGO Griffiths CRNA Single-Lumen, Cuffed; 8.5mm; Mac; 3; Oral; 1-Full view of the glottis; 1 insertion attempt; Auscultation, ETCO2 Detector; 21 centimeters; 11/14/17; 1632 in this encounter Social History Tobacco Use Types Packs/Day Years Used Date Never Smoker Smokeless Tobacco: Never Used Alcohol Use Drinks/Week oz/Week Comments No Sex Assigned at Date Recorded Not on file as of this encounter Functional Status Functional Status Response Date of Assessment Does the patient have a hearing impairment: No 11/09/2017 as of this encounter OR Notes * Anesthesia Postprocedure Evaluation - Prabha Weber DO - 11/14/2017 5:40 PM SCHEDULER CONVEYOR Formatting of this note may be different from the original. Post-Anesthesia Evaluation Name: Patsy Jay : 1945 Age: 72 y.o. Sex: female Procedure Date: 11/14/2017 Procedure: Procedure(s): BRONCHOSCOPY WITH ULTRASOUND Surgeon: Surgeon(s): Kaushik Gutierrez MD Post-Anesthesia Vitals BP: 119/65 (11/14 1732) Temp: 36.7 C (98 F) (11/14 1732) Pulse: 86 (11/14 1732) Respirations: 23 PER MINUTE (11/14 132) SpO2: 92 % (11/14 1732) O2 Delivery: Simple Mask (11/14 1732) SpO2 Pulse: 86 (11/14 1732) Post Anesthesia Evaluation Note Evaluation location: ICU Patient participation: recovered; patient participated in evaluation Level of consciousness: alert Pain score: 0 Pain management: adequate Hydration: normovolemia Temperature: 36.0C - 38.4C Airway patency: adequate Perioperative Events Perioperative events: no Post-op nausea and vomiting: no PONV Postoperative Status Cardiovascular status: hemodynamically stable Respiratory status: spontaneous ventilation and supplemental oxygen Follow-up needed: none Perioperative Events Perioperative Event: No Emergency Case Activation: No ATTESTATION Post-Anesthesia Evaluation and ICU Transfer Note Attestation: I evaluated the patient and the indicated post-anesthesia care is discharge and transfer to the ICU physician-lead team. Staff name: Prabha Weber DO Date: 11/15/2017 * Anesthesia Preprocedure Evaluation - Prabha Weber DO - 11/13/2017 3:49 PM SCHEDULER CONVEYOR Formatting of this note may be different from the original. Anesthesia Pre-Procedure Evaluation Name: Patsy Jay : 1945 Age: 72 y.o. Sex: female Procedure Date: 11/14/2017 Procedure: Procedure(s): BRONCHOSCOPY WITH ULTRASOUND Physical Assessment Vital Signs (last filed in past 24 hours): BP: 133/55 (11/14 1323) Temp: 36.8 C (98.2 F) (11/14 132) Pulse: 80 (11/14 1322) Respirations: 23 PER MINUTE (11/14 1322) SpO2: 94 % (11/14 1322) O2 Delivery: Nasal Cannula (11/14 1322) Patient History Allergies Allergen Reactions Demerol [Meperidine] DIZZINESS Patient states she also turns milan. Current Medications Medication Directions calcium carbonate/vitamin D-3 (OSCAL-500+D) 1250 mg/200 unit [...] 1 tablet by mouth daily. Review of Systems/Medical History Patient summary reviewed Pertinent labs reviewed PONV Screening: Female gender and Non-smoker No history of anesthetic complications No family history of anesthetic complications Airway - negative Pulmonary Not a current smoker No indications/hx of asthma no COPD Sleep apnea Interventions: CPAP; compliant Posterior mediastinal mass. Patient currently requiring 2L NC. S/p thoracentesis 3/. Likely re-accumulation of pleural fluid on R. 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 She presented to [facility] in [place], [place] with dyspnea and dry cough, found to have increased right-sided pleural effusion and atelectasis, transferred to [facility]. S/p thoracentesis 3/ with improvement in dyspnea. Planning on obtaining more tissue for diagnosis based on recommendation of oncology. Cardiovascular Exercise tolerance: <4 METS Hypertension, Dyspnea on exertion GI/Hepatic/Renal No GERD, No hx of liver disease No renal disease Neuro/Psych - negative Musculoskeletal - negative Endocrine/Other No diabetes Hypothyroidism (S/p thyroidectomy ) No anemia No blood dyscrasia Malignancy (Thyroid cancer, mediastinal mass) Physical Exam Airway Findings Mallampati: IV TM distance: >3 FB Neck ROM: full Mouth opening: limited Airway patency: adequate Cardiovascular Findings: Rhythm: regular Rate: normal Pulmonary Findings: Decreased breath sounds. Comments: Labored breathing Abdominal Findings: Obese Diagnostic Tests Hematology: Lab Results Component Value [...] Results Component Value Date INR 1.1 11/09/2017 11/13/17 IMPRESSION Increase in size of a right pleural effusion with near complete opacification of the right lung compatible with known pulmonary mass. Anesthesia Plan ASA score: 3 Plan: general Induction method: intravenous NPO status: acceptable Comments: (Discussed with patient that she is at an increased risk for inability to extubate due to her tenuous respiratory status. Patient indicated understanding. ) Informed Consent Anesthetic plan and risks discussed with patient. Use of blood products discussed with patient; consented to blood products. Plan discussed with: anesthesiologist and SEISMIC PROSPECTING OBSERVER HELPER. in this encounter Plan of Treatment Not on fileas of this encounter Visit Diagnoses Not on filein this encounter Administered Medications Medication Order MAR Action Action Date Dose Rate Site dexamethasone (DECADRON) injection Given 11/14/2017 4 mg Intravenous, INTRA-PROCEDURE MED, 15:43 SCHEDULER CONVEYOR Starting Sun11/14/17 at 1543, Until Sun11/14/17 at 1740, Nausea/Vomiting Injectable, Anesthesia Intra-op ePHEDrine 50 mg/mL 50 mg in sodium Bolus 11/14/2017 15 mg chloride PF 0.9% 5 mL IV syringe 16:04 SCHEDULER CONVEYOR 5 mL, INTRA-PROCEDURE MED(CONT), Starting Sun11/14/17 at 1602, Until Sun11/14/17 at 1740, Anesthesia Intra-op Bolus 11/14/2017 10 mg 16:10 SCHEDULER CONVEYOR Bolus 11/14/2017 10 mg 16:15 SCHEDULER CONVEYOR fentaNYL citrate PF (SUBLIMAZE) Given 11/14/2017 50 mcg injection 15:37 SCHEDULER CONVEYOR INTRA-PROCEDURE MED, Starting Sun11/14/17 at 1537, Until Sun11/14/17 at 1740, Pain Injectable, Anesthesia Intra-op Given 11/14/2017 50 mcg 15:45 SCHEDULER CONVEYOR lactated ringers infusion Given - New 11/14/2017 INTRA-PROCEDURE MED(CONT), Starting Sun Bag 15:30 SCHEDULER CONVEYOR 11/14/17 at 1530, Until Sun11/14/17 at 1740, Anesthesia Intra-op lidocaine (PF) injection Given 11/14/2017 50 mg INTRA-PROCEDURE MED, Starting Sun11/14/17 15:37 SCHEDULER CONVEYOR at 1537, Until Sun11/14/17 at 1740, Anesthesia Intra-op ondansetron (ZOFRAN) injection Given 11/14/2017 4 mg Intravenous, INTRA-PROCEDURE MED, 15:43 SCHEDULER CONVEYOR Starting Sun11/14/17 at 1543, Until Sun11/14/17 at 1740, Nausea/Vomiting Injectable, Anesthesia Intra-op phenylephrine in NS Injection Given 11/14/2017 200 mcg Intravenous, INTRA-PROCEDURE MED, 15:49 SCHEDULER CONVEYOR Starting Sun11/14/17 at 1546, Until Sun11/14/17 at 1740, Symptomatic Hypotension, Anesthesia Intra-op Given 11/14/2017 150 mcg 15:52 SCHEDULER CONVEYOR Given 11/14/2017 100 mcg 16:04 SCHEDULER CONVEYOR propofol (DIPRIVAN) injection Given 11/14/2017 150 mg INTRA-PROCEDURE MED, Starting 11/14/17 15:37 SCHEDULER CONVEYOR at 1537, Until Sun11/14/17 at 1740, Anesthesia Intra-op Given 11/14/2017 50 mg 15:55 SCHEDULER CONVEYOR succinylcholine (ANECTINE) injection Given 11/14/2017 100 mg Intravenous, INTRA-PROCEDURE MED, 15:37 SCHEDULER CONVEYOR Starting Sun11/14/17 at 1537, Until Sun11/14/17 at 1740, Anesthesia Intra-op in this encounter
--- OUTSIDE RECORDS SUMMARY | 2017-11-26 14:37 | XMS REPORT | Encounter Summary ---
Author Author [facility] Organization [facility] Address Unknown Phone Unavailable Care Team Providers Care E M Assembler Name Role Phone Tad Campbell MD PCP Encounter Details Date Type Department Care Team Description 11/12/2017 Procedure Pass Gastrointenstinal Endoscopy [address] [place] [address] Social History Tobacco Use Types [...]
--- OUTSIDE RECORDS SUMMARY | 2017-11-26 14:37 | XMS REPORT | Encounter Summary ---
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 Encounter Details Date Type Department Care Team Description 11/12/2017 Anesthesia Gastrointenstinal Kaleigh Garcia MD Endoscopy [address] [facility] [address] [place] [address] [place] [address] [phone] Anesthesia Record Procedure Name Responsible Anesthesia Start Time Anesthesia Stop Time Anesthesiologist ESOPHAGOGASTRODUODENOSCOP Kaleigh Garcia MD 11/12/17182311/12/17 89 Y ENDOSCOPIC ULTRASOUND (N/A ) Date Time Event Comment 1823 AN Equip Check 2017 1823 Anes Start 182 An Start Data 182 Start Supplemental O2 182 Anesthesia Ready 1828 Proc Start 1843 an stop data 1848 Handoff to RN I completed my SBAR handoff to the receiving nurse. 1850 An Stop Meds Name Total propofol (DIPRIVAN) 200 mg/ 20 mL 12 mg injection (VIAL) propofol (DIPRIVAN) infusion 68.33 mg sodium chloride 0.9 % infusion (1000 300 mL mL bag) * Name O2 N2O Inspired N2O * No blood administrations on file. Type Details Placement Removal Wounds 11/09/17; 1044; Right, Lower; Back; 11/09/17 1044 by Yen, 03/27 194 by Frame, (NOT for Puncture Wound; 11/14/17; 1948 AC Hazel RN Pressure Injuries) Peripheral 11/12/17; 1020; IV Therapy; L; Forearm; 11/12/17 1020 by Shahriar , 11/17/17 1624 by ALEJANDRA Harris 20 G; No; Ultrasound; 1; 1.25 inches; AC Rojas RN 11/17/17; 1624 in this encounter Social History Tobacco Use [...] OR Notes * Anesthesia Postprocedure Evaluation - Oleg Riggins MD - 11/12/2017 7 :21 PM JIGGER OPERATOR Post-Anesthesia Evaluation Name: Patsy Jay : 1945 Age: 72 y.o. Sex: female Procedure Date: 11/12/2017 Procedure: Procedure(s): ESOPHAGOGASTRODUODENOSCOPY ENDOSCOPIC ULTRASOUND Surgeon: Surgeon(s): Michael Wade MD Kanakadandi, Vijay N, MBBS Post-Anesthesia Vitals BP: 152/66 (11/12 1899) Temp: 37 C (98.6 F) (11/12 185) Pulse: 69 (11/12 190) Respirations: 28 PER MINUTE (11/12 1899) SpO2: 92 % (11/12 1899) O2 Delivery: Nasal Cannula (11/12 1729) SpO2 Pulse: 82 (11/12 1899) Post Anesthesia Evaluation Note Evaluation location: Pre/Post Patient participation: recovered; patient participated in evaluation Level of consciousness: alert Pain score: 1 Pain management: adequate Hydration: normovolemia Temperature: 36.0C - 38.4C Airway patency: adequate Perioperative Events Perioperative events: no Post-op nausea and vomiting: no PONV Postoperative Status Cardiovascular status: hemodynamically stable Respiratory status: spontaneous ventilation Follow-up needed: none Perioperative Events Perioperative Event: No Emergency Case Activation: No Associated attestation - Renetta Limon MD - 11/12/2017 7:50 PM JIGGER OPERATOR Post-Anesthesia Evaluation Attestation: I reviewed and agree the indicated post- anethesia care was provided. * Anesthesia Preprocedure Evaluation - Kaleigh Garcia MD - 11/12/2017 6:02 PM JIGGER OPERATOR Formatting of this note may be different from the original. Anesthesia Pre-Procedure Evaluation Name: Patsy Jay : 1945 Age: 72 y.o. Sex: female Procedure Date: 11/12/2017 Procedure: Procedure(s): ESOPHAGOGASTRODUODENOSCOPY ENDOSCOPIC ULTRASOUND Physical Assessment Vital Signs (last filed in past 24 hours): BP: 144/71 (11/12 1728) Temp: 37.2 C (99 F) (11/12 1728) Pulse: 66 (11/12 1728) Respirations: 19 PER MINUTE (11/12 1728) SpO2: 93 % (11/12 1728) O2 Delivery: Nasal Cannula (11/12 1728) Patient History Allergies Allergen Reactions Demerol [Meperidine] [...] Patient currently requiring 2L NC. S/p thoracentesis 3/2. Likely re-accumulation of pleural fluid on R. Cardiovascular Exercise tolerance: <4 METS Hypertension, No valvular problems/murmurs No past CA, No hx of coronary artery disease No dysrhythmias No angina No indications/hx of CHF No hyperlipidemia GI/Hepatic/Renal No GERD, No hx of liver disease No renal disease Neuro/Psych - negative No seizures No hx TIA No CVA Musculoskeletal - negative Endocrine/Other No diabetes Hypothyroidism (S/p thyroidectomy ) No anemia No blood dyscrasia Malignancy (Thyroid cancer, mediastinal mass) Physical Exam Airway Findings Mallampati: IV TM distance: >3 FB Neck ROM: full Mouth opening: good Airway patency: adequate Cardiovascular Findings: Rhythm: regular Rate: normal Pulmonary Findings: Decreased breath sounds (Right). Comments: Labored breathing Abdominal Findings: Obese Diagnostic Tests Hematology: Lab Results Component Value Date HGB 11.3 11/12/2017 HCT 34.6 11/12/2017 PLTCT 327 11/12/2017 WBC 7.2 11/12/2017 NEUT 76 11/12/2017 ANC 5.50 11/12/2017 ALC 1.10 11/12/2017 JOSE LUIS 7 11/12/2017 AMC 0.50 11/12/2017 EOSA 1 11/12/2017 ABC 0.00 11/12/2017 MCV 85.5 11/12/2017 MCH 28.0 11/12/2017 MCHC 32.7 11/12/2017 MPV 7.2 11/12/2017 RDW 15.0 11/12/2017 General Chemistry: Lab Results Component Value Date NA 137 11/12/2017 K 3.8 11/12/2017 CL 102 11/12/2017 CO2 28 11/12/2017 GAP 7 11/12/2017 BUN 20 11/12/2017 CR 0.90 11/12/2017 GLU 114 11/12/2017 CA 8.6 11/12/2017 ALBUMIN 3.1 11/12/2017 TOTBILI 0.5 11/12/2017 Coagulation: Lab Results Component Value Date INR 1.1 11/09/2017 Anesthesia Plan ASA score: 3 Plan: MAC NPO status: acceptable Comments: (Discussed MAC with general back-up as plan. Discussed with patient that if general anesthesia is required she is at an increased risk for inability to extubate due to her tenuous respiratory status. Patient indicated understanding. ) Informed Consent Anesthetic plan and risks discussed with patient. Use of blood products discussed with patient; consented to blood products. Plan discussed with: ELEMENTARY TUTOR. in this encounter Plan of Treatment Not on fileas of this encounter Visit Diagnoses Not on filein this encounter Administered Medications Medication Order MAR Action Action Date Dose Rate Site propofol (DIPRIVAN) infusion Given - New 11/12/2017 50 27.3 mL/hr 20 mL, Intravenous, INTRA-PROCEDURE Bag 18:27 JIGGER OPERATOR mcg/kg/min MED(CONT), Starting 11/12/17 at 1827, Until 11/12/17 at 1854, Anesthesia Intra-op propofol (DIPRIVAN) injection Given 11/12/2017 12 mg INTRA-PROCEDURE MED, Starting 11/12/17 18:27 JIGGER OPERATOR at 1827, Until 11/12/17 at 1854, Anesthesia Intra-op sodium chloride 0.9 % infusion Given - New 11/12/2017 INTRA-PROCEDURE MED(CONT), Starting Mon Bag 18:24 JIGGER OPERATOR 11/12/17 at 1824, Until 11/12/17 at 1854, Anesthesia Intra-op in this encounter
--- OUTSIDE RECORDS SUMMARY | 2017-11-26 14:37 | XMS REPORT | Encounter Summary ---
Author Author [facility] Organization [facility] Address Unknown Phone Unavailable Care Team Providers Care Grain Distributor Name Role Phone Tad Campbell MD PCP Reason for Visit * Auth/Cert Status Reason Specialty Diagnoses / Referred By Referred To Procedures Contact Contact Diagnoses hypoxia with poss sarcoma rt lung Mediastinal mass Encounter Details Date Type Department Care Team Description 11/14/2017 Surgery Gastrointenstinal Kaushik Gutierrez MD BRONCHOSCOPY WITH Endoscopy [address] ULTRASOUND [address] [place] [address] [place] [address] [phone] Social History Tobacco Use Types Packs/Day Years Used Date Never Smoker Smokeless Tobacco: Never Used Alcohol Use Drinks/Week oz/Week Comments No Sex Assigned at Date Recorded Not on file as of this encounter Last Filed Vital Signs Vital Sign Reading Time Taken Blood Pressure 142/75 11/17/2017 9:00 AM FINAL ASSEMBLY WORKER Pulse 99 11/16/2017 8:00 PM FINAL ASSEMBLY WORKER Temperature 36.8 C (98.2 F) 11/17/2017 9:00 AM FINAL ASSEMBLY WORKER Respiratory Rate - - Oxygen Saturation 93% 11/17/2017 4:00 PM FINAL ASSEMBLY WORKER Inhaled Oxygen - - Concentration Weight 90.4 kg (199 lb 4.7 oz) 11/14/2017 5:33 PM FINAL ASSEMBLY WORKER Height 154.9 cm (5' 1") 11/09/2017 12:13 AM FINAL ASSEMBLY WORKER Body Mass Index 37.66 11/14/2017 5:33 PM FINAL ASSEMBLY WORKER in this encounter Functional Status Functional Status Response Date of Assessment Does the patient have a hearing impairment: No 11/09/2017 as of this encounter Discharge Summaries * Amadou Encarnacion MD - 11/17/2017 2:07 PM FINAL ASSEMBLY WORKER Formatting of this note may be different from the original. Physician Discharge Summary Name: Jonathon Jay Date Of : 1945 Age: 72 years Admit date: 11/09/2017 Discharge date: 11/17/2017 Attending Physician: Dr. Angela Monson Service: Med ICU 1 - [id number] Physician Summary completed by: Amadou Encarnacion MD Reason for hospitalization: Acute hypoxic respiratory failure Significant PMH: Past Medical History: Diagnosis Date HTN (hypertension) Mediastinal mass 10/26/2017 INNA (obstructive sleep apnea) TB (tuberculosis) as a toddler, treated at that time Thyroid cancer (HCC) 2015 Allergies: Demerol [meperidine] Admission Physical Exam notable [...] chest with pleural effusion. She transferred to [facility] for CTS consultation. She underwent a thoracentesis [...] or concerns regarding your hospital stay. Call [phone] Discharging attending physician: ANGELA MONSON [[id number]] Regular Diet You have no dietary restriction. Please continue with a healthy balanced diet. Return Appointment - Appointment with Dr. Quintero scheduled for Sunday11/21/17 at 8:00am [facility] Address: [address] [place] [id number] Current Discharge Medication List START taking these [...] partner) scheduled for Sunday at 8:00[place] [address] Pending items needing follow up: Signed: Amadou Encarnacion MD 11/17/2017 cc: Primary Care Physician: Tad Campbell Referring physicians: Self, Referral Additional provider(s): in this encounter Discharge Instructions * Discharge Instr - Appointments - Amadou Encarnacion MD - 11/17/2017 11:55 AM FINAL ASSEMBLY WORKER - Appointment with Dr. Quintero (Dr. Middleton's partner) scheduled for 11/21 at 8:00am [place] [address] in this encounter Medications at Time of [...] of this encounter Progress Notes * Dayanara Harris RN - 11/17/2017 2:40 PM FINAL ASSEMBLY WORKER 0700: Report received and care assumed. Bedside [...] Transport at [facility]. 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 Workup: - Biopsy 10/26/17 in [place], [place] - [facility] of [facility] [...] Dr. Ilya Encarnacion MD PGY1 Emergency Medicine 6345 Subjective Jonathon Jay is a 72 y.o. [...] 99 (11/17 1999) Respirations: 14 PER MINUTE (11/18 399) SpO2: 95 % (11/17 0145) O2 Delivery: CPAP/BiPAP (Pt Owned) (11/18 399) SpO2 Pulse: 104 (11/16 190) BP: (100-134)/(66-79) Temp: [36.7 C (98 F)-36.8 [...] >60 >60 mL/min Glucose: (!) 109 (11/17/17 4199) Radiology and other Diagnostics Review: Pertinent radiology reviewed. Amadou Encarnacion MD PGY1 Emergency Medicine Pager [phone] Associated attestation - Angela Monson MD - [...] Debora Hernandez APRN - 11/16/2017 9:09 AM FINAL ASSEMBLY WORKER Med-Onc Quick Note: - Appointment with Dr. Quinetro (Dr. Middleton's partner) scheduled for 11/21 at 8:00am - Awaiting pathology results from biopsy obtained on 11/15 for definitive treatment planning [facility] Address: [facility] [place] [address] Jim Hernandez APRN [phone] * Tani Munson MD - 11/16/2017 5:55 AM FINAL ASSEMBLY WORKER Formatting of this note may be different [...] Suspect sarcoma. Workup: - Biopsy 10/26/17 in [place], [place] - path review of [facility] [...] Dr. Jeimy Encarnacion MD PGY1 Emergency Medicine 2720 ATTESTATION I personally performed the zapata portions [...] name: Tani Munson MD Date: 11/16/2017 Heather Jay is a 72 y.o. female. [...] Amadou Encarnacion MD PGY1 Emergency Medicine Pager [phone] * Maegan Orr, RT - 11/15/2017 6:11 PM FINAL ASSEMBLY WORKER Formatting of this note may be different [...] Date: 11/15/2017 Zapata AC=Airway clearance AM=Aerosolized medication BA=Ziebach aerosol DB&C=Deep breathe & cough FEV1=Forced expiratory volume in first second) IC=Inspiratory capacity LE=Lung expansion MDI=Metered dose inhaler Neb=Nebulizer O2=Oxygen Oxim=Oximetry PEFR=Peak expiratory flow rate ICE CREAM VAULT WORKER=Rapid Response Team * Leonarda Watkins, AC - 11/15/2017 6:00 PM FINAL ASSEMBLY WORKER 1800 Assumed care of pt from Cat Brendon SHEN. Assessment complete, vss. * Richa Olivas, AC - 11/15/2017 5:40 PM FINAL ASSEMBLY WORKER 0730 - assumed care of patient, bedside safety check completed 0800 - assessment completed and documented per ICU flow sheet. Patient alert & oriented x4, follows commands, denies pain at this time. All VSS per patient trends, remains on 6L HFNC, will titrate as tolerated. Will continue to monitor. * Emilee Camargo MD - 11/15/2017 11:44 AM FINAL ASSEMBLY WORKER CTS Progress Note Case reviewed in multidisciplinary [...] final diagnosis. 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 Patient already established with Dr. Middleton at [facility]. Will arrange ongoing follow up. Patient discussed with Dr. Elder Heather Jay is a 72 y.o. female. [...] hours) Intake/Output Summary (Last 24 hours) at 11/14/17 2019 Last data filed at 11/14/171999 Gross per [...] Diagnostics Review: Pertinent radiology reviewed. Debora Hernandez, MACHINING DEPARTMENT SUPERVISOR [phone] * Tani Munson MD - 11/15/2017 6:51 AM FINAL ASSEMBLY WORKER Formatting of this note may be different [...] sarcoma. Workup: - S/p biopsy 10/26/17 in [place], [place] with path review of [facility] [...] Dr. Jeimy Encarnacion MD PGY1 Emergency Medicine 8092 ATTESTATION I personally performed the zapata portions [...] name: Tani Munson MD Date: 11/15/2017 Heather Garner Pierre is a 72 y.o. female that did [...] (Last 24 hours) Glucose: (!) 147 (11/15/17 0235) Radiology and other Diagnostics Review: Pertinent radiology reviewed. Amadou Encarnacion MD PGY1 Emergency Medicine Pager [phone] * Angela Del Castillo, AC - 11/14/2017 7:49 PM FINAL ASSEMBLY WORKER 1930: Assumed care of patient. Bedside safety [...] Richa Olivas RN - 11/14/2017 6:36 PM FINAL ASSEMBLY WORKER 1730 - patient arrived to 63 from GI/Endo. Bedside safety check completed. Assessment completed and documented per ICU flow sheet. Patient alert & oriented x4, follows commands, denies pain at this time. Placed on HFNC, will titrate as tolerated. All other VSS per patient trends, will continue to monitor. * Elizabeth Navarrete RN - 11/14/2017 5:42 PM FINAL ASSEMBLY WORKER Patient arrived to room # (6314) via cart accompanied by RN. Patient transferred to the bed with assistance. Bedside safety checks completed. Initial patient assessment completed, refer to flowsheet for details. Admission skin assessment completed by: Jaky Navarrete RN and Luis Ferguson RN. Pressure Injury Present on Hospital Admission [...] Harley Niño MD - 11/14/2017 11:10 AM FINAL ASSEMBLY WORKER Formatting of this note may be different [...] atypical spindle cell neoplasm. She presented to [facility] in [place], [place] with dyspnea and dry cough, found to have increased right-sided pleural effusion and atelectasis, transferred to [facility]. S/p thoracentesis 11/09 with improvement in dyspnea. Planning on obtaining more tissue for diagnosis based on recommendation of oncology. 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 Workup: - S/p biopsy 10/26/17 in [place], [place] with path review of [facility] [...] procedures completed Code status: Full code Renay Heather Jay is a 72 y.o. female. [...] Harley Niño MD - 11/13/2017 4:22 PM FINAL ASSEMBLY WORKER Formatting of this note may be different [...] atypical spindle cell neoplasm. She presented to [facility] in [place], [place] with dyspnea and dry cough, found to have increased right-sided pleural effusion and atelectasis, transferred to [facility]. S/p thoracentesis 11/09 with improvement in dyspnea. Planning on obtaining more tissue for diagnosis based on recommendation of oncology. 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 Workup: - S/p biopsy 10/26/17 in [place], [place] with path review of [facility] [...] EGD/EUS tomorrow Code status: Full code Renay Heather Garner Pierre is a 72 y.o. [...] Opal Arellano MD - 11/12/2017 10:09 PM FINAL ASSEMBLY WORKER EUS on 11/12/2017 with the axial mass with no involvement of the esophagus or the aorta. Please refer to endoscopic report for details GI will sign off at this point, please contact us with further questions or concerns as needed Discussed with my attending physician Dr. Burrell Associated attestation - Truong Burrell MBBS - 11/25/2017 10:58 AM CDT Formatting of this note may be different from the original. ATTESTATION I personally performed the zapata portions of the E/M visit, discussed case with resident and concur with resident documentation of history, physical exam, assessment, and treatment plan unless otherwise noted. Staff name: KENDALL Desai Date: 11/25/2017 * Harley Niño MD - 11/12/2017 8:41 PM FINAL ASSEMBLY WORKER Formatting of this note may be different [...] atypical spindle cell neoplasm. She presented to [facility] in [place], [place] with dyspnea and dry cough, found to have increased right-sided pleural effusion and atelectasis, transferred to [facility]. S/p thoracentesis 11/09 with improvement in dyspnea. Planning on obtaining more tissue for diagnosis, with EGD/EUS planned for tomorrow, 11/12. 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 Workup: - S/p biopsy 10/26/17 in [place], [place] with path review of [facility] [...] course to date, and coordinating care. Heather Jonathon Jay is a 72 y.o. [...] 1899) Temp: 37 C (98.6 F) (11/12 1851) Pulse: 69 (11/12 1899) Respirations: 28 PER MINUTE (11/12 1899) SpO2: 92 % (11/12 1899) O2 Delivery: Nasal Cannula (11/12 1729) SpO2 Pulse: 82 (11/12 1899) BP: (121-152)/(43-71) Temp: [36.8 C (98.2 F)-37.3 C (99.1 F)] Pulse: [50-156] Respirations: [18 PER MINUTE-28 PER MINUTE] SpO2: [92 %-95 %] O2 Delivery: Nasal Cannula Intensity Pain Scale 0-10 (Pain 1): 7 (11/12/17 173) Vitals: 11/09/17 0013 Weight: 91.1 kg (200 [...] Testing (Last 24 hours) Glucose: (!) 114 (11/12/1714) Radiology and other Diagnostics Review: Pertinent radiology reviewed. Harley Niño MD * Christiano Lassiter, AC - 11/12/2017 3:05 PM FINAL ASSEMBLY WORKER 1705 - Pt. left 6411 to GI lab. 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 [...] Diagnostics Review: Pertinent radiology reviewed. Debora Hernandez, MACHINING DEPARTMENT SUPERVISOR [phone] * Dianne Cazares, RT - 11/12/2017 10:20 AM FINAL ASSEMBLY WORKER Formatting of this note may be different [...] Date: 11/12/2017 Zapata AC=Airway clearance AM=Aerosolized medication BA=Ziebach aerosol DB&C=Deep breathe & cough FEV1=Forced expiratory volume in first second) IC=Inspiratory capacity LE=Lung expansion MDI=Metered dose inhaler Neb=Nebulizer O2=Oxygen Oxim=Oximetry PEFR=Peak expiratory flow rate ICE CREAM VAULT WORKER=Rapid Response Team * Kane Castellano MD - 11/11/2017 1:10 PM FINAL ASSEMBLY WORKER Formatting of this note may be different [...] atypical spindle cell neoplasm. She presented to [facility] in [place], [place] with dyspnea and dry cough, found to have increased right-sided pleural effusion and atelectasis, transferred to [facility]. S/p thoracentesis 11/09 with improvement in dyspnea. Planning on obtaining more tissue for diagnosis, with EGD/EUS planned for tomorrow, 11/12. 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 Workup: - S/p biopsy 10/26/17 in [place], [place] with path review of [facility] [...] Full code Hero Castellano MD Hospitalist Pager [phone] Subjective Jonathon Pierre is a 72 y.o. female. No [...] * Loretta Chaudhry - 11/10/2017 8:36 PM FINAL ASSEMBLY WORKER Med pvt paged regarding pt increased concern about rash under right breast and on chest. Rash is warm to touch and sensitive. Pt c/o constant burning sensation. Orders placed for nystatin topical cream. This RN routinely monitoring. * Montez Roger, RN - 11/10/2017 7:21 PM FINAL ASSEMBLY WORKER Patient called this RN into room to assess newly discovered rash under right breast. Rash is slightly warmer than surrounding skin upon assessment. Patient states rash is a slight burning sensation but not itching. Med Private paged. Order to continue to monitor. * Kane Castellano MD - 11/10/2017 12:37 PM FINAL ASSEMBLY WORKER Formatting of this note may be different [...] atypical spindle cell neoplasm. Who presented to [facility] in [place], [place] with dyspnea and dry cough,found to have increased right-sided pleural effusion and atelectasis. S/p thoracentesis 11/09 with improvement in dyspnea. Planning on CTS consult, obtaining more tissue for diagnosis/ EGD/EUS on Sunday. 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 Workup: - S/p biopsy 10/26/17 in [place], [place] with path review of [facility] [...] Full code Hero Castellano MD Hospitalist Pager [phone] Subjective Jonathon Pierre is a 72 y.o. female. No [...] Federica Goff, PT - 11/09/2017 2:40 PM FINAL ASSEMBLY WORKER PHYSICAL THERAPY NOTE Per discussion with RN [...] * Miri Thao - 11/09/2017 1:39 PM FINAL ASSEMBLY WORKER OCCUPATIONAL THERAPY NO TREATMENT NOTE Patient denies [...] * Marisa Bush - 11/09/2017 11:24 AM FINAL ASSEMBLY WORKER Pt left IR in bed with [employer] personal. * Yasemin Barlow RN - 11/09/2017 11:07 AM FINAL ASSEMBLY WORKER Report called to AC Graves No questions and concerns. Immediate chest xray read by Dr. Hyatt. Pt. Cleared to go back to home unit. * Reid Castillo RN - 11/09/2017 9:42 AM FINAL ASSEMBLY WORKER Vital signs q 15 minutes x 4 [...] Faviola Serrato RN - 11/09/2017 3:44 AM FINAL ASSEMBLY WORKER Paged regarding a 2.15 second pause. Patient is asymptomatic at this time. Dr. Owen returned page will order an EKG. * Faviola Serrato RN - 11/09/2017 12:59 AM FINAL ASSEMBLY WORKER Patient arrived to room # (1096) via cart accompanied by EMS. Patient transferred [...] Jayson Lange MD - 11/14/2017 5:40 PM FINAL ASSEMBLY WORKER Formatting of this note may be different [...] atypical spindle cell neoplasm. She presented to [facility] in [place], [place] with dyspnea and dry cough, found to have increased right-sided pleural effusion and atelectasis, transferred to [facility]. S/p thoracentesis 11/09 with improvement in dyspnea. Planning on obtaining more tissue for diagnosis, with EGD/EUS planned for 11/12. 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 Workup: - S/p biopsy 10/26/17 in [place], [place] with path review of [facility] [...] Dr. Erik Encarnacion MD PGY1 Emergency Medicine 6333 ICU Attending Note Jonathon Jay Is critically [...] monitor in ICU for respiratory decompensation. DOS 3-7-18 Staff name: Jayson Lange MD Date: 11/15/2017 [...] 2015 Past Surgical History: Procedure Laterality Date UPPER [...] MINUTE (11/14 1323) SpO2: 92 % (11/14 1733) O2 Delivery: Simple Mask (11/14 173) SpO2 Pulse: 86 (11/14 1733) BP: (115-140)/(53-65) Temp: [36.6 C (97.9 F)-37.3 [...] Amadou Encarnacion MD PGY1 Emergency Medicine Pager [phone] * Kaushik Gutierrez MD - 11/14/2017 3:34 PM FINAL ASSEMBLY WORKER Formatting of this note may be different [...] capsule 100 mg 100 mg Oral QDAY [NOV Hold] enalapril (VASOTEC) tablet 10 mg 10 mg Oral QDAY [NOV Hold] hydroCHLOROthiazide (HYDRODIURIL) tablet 12.5 mg 12.5 mg Oral QAM8 [NOV Hold] levothyroxine (SYNTHROID) tablet 137 mcg 137 mcg Oral QDAY 30 min before breakfast [NOV Hold] triamcinolone acetonide (KENALOG) 0.1 % topical ointment Topical BID [NOV Hold] verapamil SR (CALAN-SR) tablet 240 mg 240 mg Oral QDAY Continuous Infusions: PRN and Respiratory Meds:[NOV Hold] acetaminophen Q6H PRN, [NOV Hold] cyclobenzaprine TID PRN, nystatin BID PRN, [NOV [...] Relevant labs reviewed Kaushik Gutierrez MD Pager [phone] * Pantera Ortiz, MARIXA-WATCH AND CLOCK REPAIR CLERK - 11/09/2017 9:48 AM FINAL ASSEMBLY WORKER Formatting of this note may be different [...] 2016 Past Surgical History: Procedure Laterality Date CHOLECYSTECTOMY [...] Tests: Labs: Pertinent labs reviewed Pantera Ortiz APRN-WATCH AND CLOCK REPAIR CLERK Pager [phone] * Kenya Ramey MD - 11/09/2017 2:23 AM FINAL ASSEMBLY WORKER Formatting of this note may be different [...] cell neoplasm [ pending outside consultation with [facility]]. Patient presented to [facility] in [place], [place] for shortness of breath and dry [...] cell neoplasm [ pending outside consultation with [facility]]. Patient presented to [facility] in [place], [place] for shortness of breath and dry cough. Dyspnea has been ongoing for the last month or so but got worse after the biopsy on 10/26. Patient denies having phlegm, hemoptysis, or chest pain. She was found to have increased right-sided pleural effusion on CT chest without contrast. Her saturation was 88% on room air. She was transferred to [facility] for CTS consultation. Patient states that she has extensive family history of cancer: her father had colon, lung and liver cancer, and her mother had leukemia. She never smoked cigarettes. 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 She lives by herself, and is able to take care of herself. Her kids live near her, in the area of [place]. Past Medical History: Diagnosis Date HTN (hypertension) Mediastinal mass 10/26/2017 INNA (obstructive sleep apnea) TB (tuberculosis) as a toddler, treated at that time Thyroid cancer (HCC) 2016 Past Surgical History: Procedure Laterality Date CHOLECYSTECTOMY [...] reviewed. Susana Woo MD Internal Medicine Pager [phone] in this encounter Consult Notes * Charline Alves DO - 11/13/2017 11:08 AM FINAL ASSEMBLY WORKER Associated Order(s): CONSULT PULMONARY/CRITICAL CARE PHYSICIAN Formatting of this note may be different from the original. Pulmonary Consult Note Jonathon Jay Date of Admission: 11/09/2017 Active Problems: Mediastinal mass Community acquired pneumonia Atelectasis of right lung Pleural effusion on right Acute hypoxemic respiratory failure (HCC) Impression/Plan: Ms. Jay is a 72 year old female with PMH of thyroid cancer s/p Thyroidectomy in 2016 who presented with dyspnea and cough to [facility] in [place], [place]. She was found to have a [...] breath so presented to the ED in [place], [place] and then was transferred here. She [...] Signs: 24 Hour Range BP: 121/52 (11/13 0730) Temp: 36.7 C (98 F) (11/13 729) [...] no rashes or jaundice LABS: Recent Labs 11/11/1753211/12/17 0514 11/13/17 0602 NA 137 137 140 K 3.5 3.8 3.7 CL 100 102 103 CO2 29 28 31* GAP 8 7 6 BUN 16 20 17 CR 0.76 0.90 0.73 GLU 114* 114* 108* CA 8.7 8.6 8.8 ALBUMIN 3.4* 3.1* 3.1* Recent Labs 11/11/17 0533 11/12/17 0514 11/13/17 0602 WBC 7.8 7.2 6.2 [...] Elizabeth Alves DO Pulmonary/Critical Care Pager # [phone] 11/13/2017 Associated attestation - Akash Winn MD - 11/13/2017 10:54 PM FINAL ASSEMBLY WORKER Formatting of this note may be different [...] Emilee Camargo MD - 11/10/2017 4:00 PM FINAL ASSEMBLY WORKER Associated Order(s): CONSULT CARDIOTHORACIC SURGERY PHYSICIAN Formatting of this note may be different from the original. CTS CONSULT Date of Service: 11/10/2017 Requesting Physician: Kenya Ramey MD Consulting Physician: Leyla Lopez MD Consult Performed By: Emilee Camargo MD HPI: Mrs. Jay is a 72 y/o F who presented to [facility] in [place], [place], for shortness of breath and a nonproductive cough. 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 She was transferred to [facility] for further workup. She is currently admitted [...] Leyla Lopez MD - 11/11/2017 8:53 AM FINAL ASSEMBLY WORKER Formatting of this note may be different from the original. ATTESTATION I personally performed the zapata portions of the E/M visit, discussed case with resident and concur with resident documentation of history, physical exam, assessment, and treatment plan unless otherwise noted. Staff name: Leyla Lopez MD Date: 11/11/2017 * Bette Kurtz MD - 11/09/2017 10:37 AM FINAL ASSEMBLY WORKER Associated Order(s): CONSULT GASTROENTEROLOGY PHYSICIAN Formatting of this note may be different from the original. 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/17 (pending final pathology work-up), was transferred from [facility] in [place], [place] to [facility] for worsening shortness of breath and increase [...] (pending final pathology work-up), was transferred from [facility] in [place], [place] to [facility] for worsening shortness of breath and increase [...] 2016 Past Surgical History: Procedure Laterality Date CHOLECYSTECTOMY [...] (98.6 F) (11/09 0945) Pulse: 90 (11/09 103) Respirations: 25 PER MINUTE (11/09 1035) SpO2: 95 % (11/09 1035) O2 Delivery: Nasal Cannula (11/09 103) SpO2 Pulse: 90 (11/09 1035) Height: 154.9 cm (61") (11/09 0013) BP: [...] Arellano MD Gastroenterology & Hepatology Fellow Pager [phone] * Debora Hernandez, MACHINING DEPARTMENT SUPERVISOR - 11/09/2017 7:33 AM FINAL ASSEMBLY WORKER Associated Order(s): CONSULT ONCOLOGY PHYSICIAN Formatting of [...] spindle cell neoplasm [pending outside consultation with [facility]- 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 Mild increased FDG uptake associated with the right pleural effusion with maximum SUV of 3.77. No discrete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
--- OUTSIDE RECORDS SUMMARY | 2017-11-26 14:40 | XMS REPORT | Encounter Summary ---
Author Author [facility] Organization [facility] Address Unknown Phone Unavailable Care Team Providers Care Hot Mill Operator Name Role Phone Tad Campbell MD PCP Reason for Visit * Auth/Cert Status Reason Specialty Diagnoses / Referred By Referred To Procedures Contact Contact Diagnoses hypoxia with poss sarcoma rt lung Mediastinal mass Encounter Details Date Type Department Care Team Description 11/12/2017 Surgery Gastrointenstinal Michael Wade MD ESOPHAGOGASTRODUODENOSCOP Endoscopy [address] ENDOSCOPIC ULTRASOUND [address] [place] [address] [place] [address] [phone] Social History Tobacco Use Types Packs/Day Years Used Date Never Smoker Smokeless Tobacco: Never Used Alcohol Use Drinks/Week oz/Week Comments No Sex Assigned at Date Recorded Not on file as of this encounter Last Filed Vital Signs Vital Sign Reading Time Taken Blood Pressure 142/75 11/17/2017 9:00 AM GRAIN BROKER Pulse 99 11/16/2017 8:00 PM GRAIN BROKER Temperature 36.8 C (98.2 F) 11/17/2017 9:00 AM GRAIN BROKER Respiratory Rate - - Oxygen Saturation 93% 11/17/2017 4:00 PM GRAIN BROKER Inhaled Oxygen - - Concentration Weight 90.4 kg (199 lb 4.7 oz) 11/14/2017 5:33 PM GRAIN BROKER Height 154.9 cm (5' 1") 11/09/2017 12:13 AM GRAIN BROKER Body Mass Index 37.66 11/14/2017 5:33 PM GRAIN BROKER in this encounter Functional Status Functional Status Response Date of Assessment Does the patient have a hearing impairment: No 11/09/2017 as of this encounter Discharge Summaries * Amadou Encarnacion MD - 11/17/2017 2:07 PM GRAIN BROKER Formatting of this note may be different [...] HTN, INNA, thyroid cancer s/p thyroidectomy in , posterior mediastinal/pleural mass. 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 Outside hospital CT showed significant CT chest with pleural effusion. She transferred to [facility] for CTS consultation. She underwent a [...] or concerns regarding your hospital stay. Call [phone] Discharging attending physician: ANGELA MONSON [[id number]] Regular Diet You have no dietary restriction. Please continue with a healthy balanced diet. Return Appointment - Appointment with Dr. Quintero scheduled for Sunday11/21/17 at 8:00am [facility] Address: [facility] [place] [address] Current Discharge Medication List START taking these [...] partner) scheduled for Sunday at 8:00[place] [address] Pending items needing follow up: Signed: Amadou Encarnacion MD 11/17/2017 cc: Primary Care Physician: Tad Campbell Referring physicians: Self, Referral Additional provider(s): in this encounter Discharge Instructions * Discharge Instr - Appointments - Amadou Encarnacion MD - 11/17/2017 11:55 AM GRAIN BROKER - Appointment with Dr. Quintero (Dr. Middleton's partner) scheduled for 11/21 at 8:00am [place] [address] in this encounter Medications at Time of [...] Dayanara Harris RN - 11/17/2017 2:40 PM GRAIN BROKER 0700: Report received and care assumed. Bedside [...] Transport at bedside to take pt to [facility] via wheelchair with all belongings. 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 Workup: - Biopsy 10/26/17 in [place] [place] [facility] [...] MD PGY1 Emergency Medicine 6345 Subjective Jonathon Pierre is a 72 y.o. female. She continues [...] >60 >60 mL/min Glucose: (!) 109 (11/17/17 2623) Radiology and other Diagnostics Review: Pertinent radiology reviewed. Amadou Encarnacion MD PGY1 Emergency Medicine Pager [phone] Associated attestation - Angela Monson MD - [...] Debora Hernandez APRN - 11/16/2017 9:09 AM GRAIN BROKER Med-Onc Quick Note: - Appointment with Dr. Quintero (Dr. Middleton's partner) scheduled for 11/21 at 8:00am - Awaiting pathology results from biopsy obtained on 11/15 for definitive treatment planning [facility] Address: [address] [place] [phone] Jim Hernandez, MARIXA [phone] * Tani Munson MD - 11/16/2017 5:55 AM GRAIN BROKER Formatting of this note may be different [...] Suspect sarcoma. Workup: - Biopsy 10/26/17 in [place], [place] - path review of [facility] [...] Dr. Jeimy Encarnacion MD PGY1 Emergency Medicine 8650 ATTESTATION I personally performed the zapata portions [...] name: Tani Munson MD Date: 11/16/2017 Heather Garner Pierre is a 72 y.o. female. She did [...] Amadou Encarnacion MD PGY1 Emergency Medicine Pager [phone] * Maegan Orr, RT - 11/15/2017 6:11 PM GRAIN BROKER Formatting of this note may be different [...] Date: 11/15/2017 Zapata AC=Airway clearance AM=Aerosolized medication BA=[place] aerosol DB&C=Deep breathe & cough FEV1=Forced expiratory volume in first second) IC=Inspiratory capacity LE=Lung expansion MDI=Metered dose inhaler Neb=Nebulizer O2=Oxygen Oxim=Oximetry PEFR=Peak expiratory flow rate METALLURGIST PROCESS=Rapid Response Team * Leonarda Watkins, RN - 11/15/2017 6:00 PM GRAIN BROKER 1800 Assumed care of pt from Cat Brendon RN. Assessment complete, vss. * Richa Olivas RN - 11/15/2017 5:40 PM GRAIN BROKER 0730 - assumed care of patient, bedside safety check completed 0800 - assessment completed and documented per ICU flow sheet. Patient alert & oriented x4, follows commands, denies pain at this time. All VSS per patient trends, remains on 6L HFNC, will titrate as tolerated. Will continue to monitor. * Emilee Camargo MD - 11/15/2017 11:44 AM GRAIN BROKER CTS Progress Note Case reviewed in multidisciplinary [...] diagnosis. 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 Patient already established with Dr. Middleton at [facility]. Will arrange ongoing follow up. Patient discussed [...] Diagnostics Review: Pertinent radiology reviewed. Debora Hernandez, FACTORY LABORER [phone] * Tani Munson MD - 11/15/2017 6:51 AM GRAIN BROKER Formatting of this note may be different [...] sarcoma. Workup: - S/p biopsy 10/26/17 in [place], [place] with path review of [facility] [...] Dr. Jeimy Encarnacion MD PGY1 Emergency Medicine 3690 ATTESTATION I personally performed the zapata portions [...] Amadou Encarnacion MD PGY1 Emergency Medicine Pager [phone] * Angela eDl Castillo RN - 11/14/2017 7:49 PM GRAIN BROKER 1930: Assumed care of patient. Bedside safety [...] Richa Olivas RN - 11/14/2017 6:36 PM GRAIN BROKER 1730 - patient arrived to 63 from GI/Endo. Bedside safety check completed. Assessment completed and documented per ICU flow sheet. Patient alert & oriented x4, follows commands, denies pain at this time. Placed on HFNC, will titrate as tolerated. All other VSS per patient trends, will continue to monitor. * Elizabeth Navarrete RN - 11/14/2017 5:42 PM GRAIN BROKER Patient arrived to room # (6314) via [...] Harley Niño MD - 11/14/2017 11:10 AM GRAIN BROKER Formatting of this note may be different [...] atypical spindle cell neoplasm. She presented to [facility] in [place], [place] with dyspnea and dry cough, found to have increased right-sided pleural effusion and atelectasis, transferred to [facility]. S/p thoracentesis 11/09 with improvement in dyspnea. Planning on obtaining more tissue for diagnosis based on recommendation of oncology. 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 Workup: - S/p biopsy 10/26/17 in [place], [place] with path review of [facility] [...] Harley Niño MD - 11/13/2017 4:22 PM GRAIN BROKER Formatting of this note may be different from the original. General Progress Note Today's Date: 11/13/2017 Admission Date: 11/09/2017 LOS: 4 days Assessment/Plan: Principal Problem: Lung mass Active Problems: Mediastinal mass Community acquired pneumonia Atelectasis of right lung Pleural effusion on right Acute hypoxemic respiratory failure (HCC) Ms. Jya is a 72-year-old female past medical history of hypertension, tuberculosis as a child [treated with no history of recurrence], obstructive sleep apnea on CPAP, history of thyroid cancer and thyroidectomy in 2016 (no chemotherapy was given at the time), recent diagnosis of posterior mediastinal/ pleural mass and mass biopsy on 2/16/18 showing atypical spindle cell neoplasm. She presented to [facility] in [place], [place] with dyspnea and dry cough, found to have increased right-sided pleural effusion and atelectasis, transferred to [facility]. S/p thoracentesis 11/09 with improvement in dyspnea. Planning on obtaining more tissue for diagnosis based on recommendation of oncology. 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 Workup: - S/p biopsy 10/26/17 in [place], [place] with path review of [facility] [...] Opal Arellano MD - 11/12/2017 10:09 PM GRAIN BROKER EUS on 11/12/2017 with the axial mass [...] Harley Niño MD - 11/12/2017 8:41 PM GRAIN BROKER Formatting of this note may be different [...] atypical spindle cell neoplasm. She presented to [facility] in [place], [place] with dyspnea and dry cough, found to have increased right-sided pleural effusion and atelectasis, transferred to [facility]. S/p thoracentesis 11/09 with improvement in dyspnea. Planning on obtaining more tissue for diagnosis, with EGD/EUS planned for tomorrow, 11/12. 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 Workup: - S/p biopsy 10/26/17 in [place], [place] with path review of [facility] [...] H&P, course to date, and coordinating care. Subjective Jonathon Jay is a 72 y.o. [...] Intensity Pain Scale 0-10 (Pain 1): 7 (11/12/170) Vitals: 11/09/17 0013 Weight: 91.1 kg (200 [...] Christiano Lassiter, AC - 11/12/2017 3:05 PM GRAIN BROKER 1705 - Pt. left 6411 to GI lab. * Debora Hernandez APRN - 11/12/2017 2:39 PM GRAIN BROKER Formatting of this note may be different [...] spindle cell neoplasm [pending outside consultation with [facility] block- report indicates suspicion for low grade [...] Diagnostics Review: Pertinent radiology reviewed. Debora Hernandez, FACTORY LABORER [phone] * Dianne Cazares, RT - 11/12/2017 10:20 AM GRAIN BROKER Formatting of this note may be different [...] Date: 11/12/2017 Zapata AC=Airway clearance AM=Aerosolized medication BA=[place] aerosol DB&C=Deep breathe & cough FEV1=Forced expiratory volume in first second) IC=Inspiratory capacity LE=Lung expansion MDI=Metered dose inhaler Neb=Nebulizer O2=Oxygen Oxim=Oximetry PEFR=Peak expiratory flow rate METALLURGIST PROCESS=Rapid Response Team * Kane Castellano MD - 11/11/2017 1:10 PM GRAIN BROKER Formatting of this note may be different [...] atypical spindle cell neoplasm. She presented to [facility] in [place], [place] with dyspnea and dry cough, found to have increased right-sided pleural effusion and atelectasis, transferred to [facility]. S/p thoracentesis 11/09 with improvement in dyspnea. Planning on obtaining more tissue for diagnosis, with EGD/EUS planned for tomorrow, 11/12. 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 Workup: - S/p biopsy 10/26/17 in [place], [place] with path review of [facility] [...] Full code Hero Castellano MD Hospitalist Pager [phone] Heather Garner Pierre is a 72 y.o. [...] * Loretta Chaudhry - 11/10/2017 8:36 PM GRAIN BROKER Med pvt paged regarding pt increased concern about rash under right breast and on chest. Rash is warm to touch and sensitive. Pt c/o constant burning sensation. Orders placed for nystatin topical cream. This RN routinely monitoring. * Montez Roger RN - 11/10/2017 7:21 PM GRAIN BROKER Patient called this RN into room to assess newly discovered rash under right breast. Rash is slightly warmer than surrounding skin upon assessment. Patient states rash is a slight burning sensation but not itching. Med Private paged. Order to continue to monitor. * Kane Castellano MD - 11/10/2017 12:37 PM GRAIN BROKER Formatting of this note may be different [...] atypical spindle cell neoplasm. Who presented to [facility] in [place], [place] with dyspnea and dry cough,found to have increased right-sided pleural effusion and atelectasis. S/p thoracentesis 11/09 with improvement in dyspnea. Planning on CTS consult, obtaining more tissue for diagnosis/ EGD/EUS on Sunday. 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 Workup: - S/p biopsy 10/26/17 in [place], [place] with path review of [facility] [...] Full code Hero Castellano MD Hospitalist Pager [phone] Heather Garner Pierre is a 72 y.o. [...] Federica Goff, PT - 11/09/2017 2:40 PM GRAIN BROKER PHYSICAL THERAPY NOTE Per discussion with RN [...] * Miri Thao - 11/09/2017 1:39 PM GRAIN BROKER OCCUPATIONAL THERAPY NO TREATMENT NOTE Patient denies [...] * Marisa Bush - 11/09/2017 11:24 AM GRAIN BROKER Pt left IR in bed with [employer] personal. * Yasemin Barlow RN - 11/09/2017 11:07 AM GRAIN BROKER Report called to AC Graves No questions and concerns. Immediate chest xray read by Dr. Hyatt. Pt. Cleared to go back to home unit. * Reid Castillo RN - 11/09/2017 9:42 AM GRAIN BROKER Vital signs q 15 minutes x 4 [...] Faviola Serrato RN - 11/09/2017 3:44 AM GRAIN BROKER Paged regarding a 2.15 second pause. Patient is asymptomatic at this time. Dr. Owen returned page will order an EKG. * Faviola Serrato RN - 11/09/2017 12:59 AM GRAIN BROKER Patient arrived to room # (2947) via cart accompanied by EMS. Patient transferred [...] Jayson Lange MD - 11/14/2017 5:40 PM GRAIN BROKER Formatting of this note may be different [...] atypical spindle cell neoplasm. She presented to [facility] in [place], [place] with dyspnea and dry cough, found to have increased right-sided pleural effusion and atelectasis, transferred to [facility]. S/p thoracentesis 11/09 with improvement in dyspnea. Planning on obtaining more tissue for diagnosis, with EGD/EUS planned for 11/12. 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 Workup: - S/p biopsy 10/26/17 in [place], [place] with path [facility] of [facility] [...] > pulmonary consult placed 11/13, EBUS on 3/7 Pleural effusion on right - s/p thora 11/09, 800 cc removed with improvement in dyspnea. Concerning for malignant effusion. Given LVQ x1 on admission but no further evidence of infection. - F/u pending fluid cx, cytology (Lymphocyte predominant exudate) - Observe off of antibiotics - repeat cxr am 3/ shows increasing fluid - Will inquire with [...] Dr. Erik Encarnacion MD PGY1 Emergency Medicine 8853 ICU Attending Note Jonathon Jay Is critically [...] (11/14 1733) O2 Delivery: Simple Mask (11/14 1733) SpO2 Pulse: 86 (11/14 1733) BP: (115-140)/(53-65) [...] Amadou Encarnacion MD PGY1 Emergency Medicine Pager [phone] * Kaushik Gutierrez MD - 11/14/2017 3:34 PM GRAIN BROKER Formatting of this note may be different [...] Hold] cyclobenzaprine TID PRN, nystatin BID PRN, [MAR Hold] ondansetron (ZOFRAN) IV Q6H PRN Vital [...] Relevant labs reviewed Kaushik Gutierrez MD Pager [phone] * Pantera Ortiz, MARIXA-PARTITION SETTER - 11/09/2017 9:48 AM GRAIN BROKER Formatting of this note may be different [...] Tests: Labs: Pertinent labs reviewed Pantera Ortiz APRN-PARTITION SETTER Pager [phone] * Kenya Ramey MD - 11/09/2017 2:23 AM GRAIN BROKER Formatting of this note may be different from the original. Admission History and Physical Examination Name: Jonathon Jay Admission Date: 11/09/2017 Assessment/Plan: Ms. Jay is a 72-year-old female past medical history of hypertension, tuberculosis as a child [treated with no history of recurrence], obstructive sleep apnea on CPAP, history of thyroid cancer and thyroidectomy in 2015 and no chemotherapy was given at the time, recent diagnosis of posterior mediastinal/ pleural mass and mass biopsy on 10/26/17 showing atypical spindle cell neoplasm [ pending outside consultation with [facility]]. Patient presented to [facility] in [place], [place] for shortness of breath and dry [...] cell neoplasm [ pending outside consultation with [facility]]. Patient presented to [facility] in [place], [place] for shortness of breath and dry cough. Dyspnea has been ongoing for the last month or so but got worse after the biopsy on 10/26. Patient denies having phlegm, hemoptysis, or chest pain. She was found to have increased right-sided pleural effusion on CT chest without contrast. Her saturation was 88% on room air. She was transferred to [facility] for CTS consultation. Patient states that she has extensive family history of cancer: her father had colon, lung and liver cancer, and her mother had leukemia. She never smoked cigarettes. 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 She lives by herself, and is able to take care of herself. Her kids live near her, in the area of [place]. Past Medical History: Diagnosis Date HTN (hypertension) [...] reviewed. Susana Woo MD Internal Medicine Pager [phone] in this encounter Consult Notes * Charline Alves DO - 11/13/2017 11:08 AM GRAIN BROKER Associated Order(s): CONSULT PULMONARY/CRITICAL CARE PHYSICIAN Formatting [...] who presented with dyspnea and cough to [facility] in [place], [place]. She was found to have a [...] breath so presented to the ED in [place], [place] and then was transferred here. She [...] Vital Signs: 24 Hour Range BP: 121/52 (03/06 0730) Temp: 36.7 C (98 F) (11/13 [...] lung compatible with known pulmonary mass. Elizabeth Alves, Pulmonary/Critical Care Pager # [phone] 11/13/2017 Associated attestation - Akash Winn MD - 11/13/2017 10:54 PM GRAIN BROKER Formatting of this note may be different [...] Emilee Camargo MD - 11/10/2017 4:00 PM GRAIN BROKER Associated Order(s): CONSULT CARDIOTHORACIC SURGERY PHYSICIAN Formatting of this note may be different from the original. CTS CONSULT Date of Service: 11/10/2017 Requesting Physician: Kenya Ramey MD Consulting Physician: Leyla Lopez MD Consult Performed By: Emilee Camargo MD HPI: Mrs. Jay is a 72 y/o F who presented to [facility] in [place], [place], for shortness of breath and a nonproductive cough. 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 She was transferred to [facility] for further workup. She is currently [...] Leyla Lopez MD - 11/11/2017 8:53 AM GRAIN BROKER Formatting of this note may be different from the original. ATTESTATION I personally performed the zapata portions of the E/M visit, discussed case with resident and concur with resident documentation of history, physical exam, assessment, and treatment plan unless otherwise noted. Staff name: Leyla Lopez MD Date: 11/11/2017 * Bette Kurtz MD - 11/09/2017 10:37 AM GRAIN BROKER Associated Order(s): CONSULT GASTROENTEROLOGY PHYSICIAN Formatting of [...] (pending final pathology work-up), was transferred from [facility] in [place], [place] to [facility] for worsening shortness of breath and [...] (pending final pathology work-up), was transferred from [facility] in [place], [place] to [facility] for worsening shortness of breath and [...] (98.6 F) (11/09 0945) Pulse: 90 (11/09 1035) Respirations: 25 PER MINUTE (11/09 1035) SpO2: 95 % (11/09 1035) O2 Delivery: Nasal Cannula (11/09 1035) SpO2 Pulse: 90 (11/09 1035) Height: 154.9 [...] Arellano MD Gastroenterology & Hepatology Fellow Pager [phone] * Debora Hernandez, MARIXA - 11/09/2017 7:33 AM GRAIN BROKER Associated Order(s): CONSULT ONCOLOGY PHYSICIAN Formatting of [...] spindle cell neoplasm [pending outside consultation with [facility] block- report indicates suspicion for low grade [...] 72 y.o. female admitted in transfer from [place], [place] for CTS evaluation. Patient has newly [...] FINAL 11/09/2017 Pertinent radiology reviewed. Debora Hernandez, CORE SUCKER [phone] Associated attestation - Alvin Fink MD - 11/09/2017 5:29 PM GRAIN BROKER Attestation by Dr. Fink: I saw this [...] and therapeutic thoracentesis. Outside path review from [facility] arrived this pm - possibly a low [...] - Jeny Carson - 11/16/2017 9:48 AM GRAIN BROKER Case Management Progress Note NAME:Jonathon Jay : [...] confirmed no new therapy needs with RN. SW and RNCM following for support. ? Medication Needs ? Financial Medicare and [facility] ? Legal Legal: DPOA & Advance Directives [...] No ? Discharge Disposition Jeny Carson LMSW [phone] (phone) [phone] (pager) * Case Mgmt DC Plan - Lisa Jurado RN - 11/16/2017 9:11 AM GRAIN BROKER Formatting of this note may be different from the original. Case Management Progress Note NAME:Jonathon Jay : AGE: 72 y.o. ADMISSION DATE: 11/09/2017 DAYS ADMITTED: LOS: 7 days Todays Date: 11/16/2017 Plan Discharge planning Interventions ? Support Support: Pt/Family Updates re:POC or DC Plan ? Info or Referral Patient has her CPAP through [facility] in [place]. [phone] Fax No oxygen PULP REFINER OPERATOR. ? Discharge Planning Spoke with patient Patient [...] Disposition Latrell Jurado RN MSN ONC Nurse Network Relations Consultant Pg [phone] Durable Medical Equipment No service has been selected for the patient. [facility] Destination No service has been selected for the patient. Home Care No service has been selected for the patient. Dialysis/Infusion No service has been selected for the patient. * Anesthesia Post Op Day 1 - Amadou Beard DO - 11/15/2017 7:38 AM GRAIN BROKER Formatting of this note may be different from the original. Anesthesia Follow-Up Evaluation: Post-Procedure Day One Name: Jonathon Jya : 1945 Age: 72 y.o. Sex: female [...] - Shyanne Gonzalez - 11/14/2017 1:16 PM GRAIN BROKER Formatting of this note may be different from the original. Case Management Progress Note NAME:Jonathon Jay : AGE: 72 y.o. ADMISSION DATE: 11/09/2017 DAYS ADMITTED: LOS: 5 days Todays Date: 11/14/2017 Plan Kilo completed DPOA with pt. Pt will transfer [...] been selected for the patient. Shyanne Gonzalez, [facility] *[phone] * Anesthesia Post Op Day 1 - Amadou Beard DO - 11/13/2017 7:50 AM GRAIN BROKER Formatting of this note may be different [...] Ely Mclaughlin RN - 11/11/2017 5:15 PM GRAIN BROKER Problem: Discharge Planning Goal: Participation in plan of care Outcome: Goal Ongoing Pt updated on plan of care. No plans to d/c at this time. Problem: Respiratory Impairment (Non-Ventilated Patient) Goal: Effective gas exchange Outcome: Goal Ongoing Pt on 2L [place]. * Case Mgmt DC Plan - Shyanne Gonzalez - 11/09/2017 3:27 PM GRAIN BROKER Case Management Admission Assessment NAME:Jonathon Jay : [...] spindle cell neoplasm [pending outside consultation with [facility]]. Patient presented to [facility] in [place], [place] for shortness of breath and dry cough, she was found to have increased right-sided pleural effusion and atelectasis on CT chest without contrast." Patient Address/Phone [address] [address] (home) Emergency Contact Extended Emergency Contact Information Primary Emergency Contact: Becky Griffiths Address: [address] [place] Relation: Daughter Preferred language: [employer] Directive Pt does not have a [...] Primary Insurance: Medicare Secondary Insurance: Commercial insurance ([facility] [place]) Additional Coverage: RX ([employer] and [employer]. Pt manages her own medications and is able to afford her Rx) ? Source of Income Source Of Income: Other mcc income ? Financial Assistance Needed? none Psychosocial Needs ? Mental Health Mental Health History: No ? Substance Use History Substance Use History Screen: No ? Other none Current/Previous Services ? PCP Tad Campbell, , ? Pharmacy [facility] [address] [place] [id number] ? Durable Medical Equipment Durable Medical Equipment [...] ? Outpatient Therapy PT: No OT: No FOOD PRODUCTS TESTER: No ? Detention Facility/Senior Living SNF: No NH: No ? Inpatient Rehab IPR: No ? Long-Term Acute Care Hospital LTACH: No ? Acute Hospital Stay Acute Hospital Stay: In the past Shyanne Gonzalez [facility] *[id number] * Procedures (Immed Post or Bedside) - Amadou Zeng MD - 11/09/2017 10:38 AM GRAIN BROKER Procedure Note Procedures Immediate Post Procedure Note [...] Faviola Serrato RN - 11/09/2017 5:22 AM GRAIN BROKER Problem: Discharge Planning Goal: Participation in plan [...] CDT procedure are in the results section. CONSULT IV THERAPY TEAM STAT 11/14/2017 12:18 PM GRAIN BROKER ESOPHAGOGASTRODUODENOSCOP 11/12/2017 Mediastinal mass Y ENDOSCOPIC ULTRASOUND 5:57 PM GRAIN BROKER CONSULT IV THERAPY TEAM Routine 11/12/2017 9:26 AM GRAIN BROKER CONSULT IV THERAPY TEAM STAT 11/09/2017 5:01 AM GRAIN BROKER in this encounter Results * PROCEDURE RECORD-SCAN [...] questions. Specimen Performing Laboratory Blood MAIN LAB [address] [place], [place] [id number] * PHOSPHORUS (11/17/2017 3:35 AM) Component Value Ref Range Phosphorus 3.9 2.0 - 4.0 MG/DL Specimen Performing Laboratory Blood MAIN LAB [address] [place], [place] [id number] * MAGNESIUM (11/17/2017 3:35 AM) Component Value Ref Range Magnesium 2.0 1.6 - 2.6 mg/dL Specimen Performing Laboratory Blood MAIN LAB [address] [place], [place] [id number] * CBC AND DIFF (11/17/2017 3:35 AM) [...] Specimen Performing Laboratory Blood MAIN LAB [address] [place] [address] * COMPREHENSIVE METABOLIC PANEL (11/16/2017 5:34 AM) [...] Specimen Performing Laboratory Blood MAIN LAB [address] [place] [address] * PHOSPHORUS (11/16/2017 5:34 AM) Component Value Ref Range Phosphorus 3.8 2.0 - 4.0 MG/DL Specimen Performing Laboratory Blood MAIN LAB [address] [place] [address] * MAGNESIUM (11/16/2017 5:34 AM) Component Value Ref Range Magnesium 2.1 1.6 - 2.6 mg/dL Specimen Performing Laboratory Blood MAIN LAB [address] [place] [address] * CBC AND DIFF (11/16/2017 5:34 AM) [...] Specimen Performing Laboratory Blood MAIN LAB [address] [place] [address] * COMPREHENSIVE METABOLIC PANEL (11/15/2017 2:35 AM) [...] Specimen Performing Laboratory Blood MAIN LAB [address] [place] [address] * PHOSPHORUS (11/15/2017 2:35 AM) Component Value Ref Range Phosphorus 5.0 (H) 2.0 - 4.0 MG/DL Specimen Performing Laboratory Blood MAIN LAB [address] [place] [address] * MAGNESIUM (11/15/2017 2:35 AM) Component Value Ref Range Magnesium 2.2 1.6 - 2.6 mg/dL Specimen Performing Laboratory Blood MAIN LAB [address] [place] [address] * CBC AND DIFF (11/15/2017 2:35 AM) [...] Specimen Performing Laboratory Blood MAIN LAB [address] [place] [address] * CBC AND DIFF (11/14/2017 6:12 PM) [...] Specimen Performing Laboratory Blood MAIN LAB [address] [place] [address] * COMPREHENSIVE METABOLIC PANEL (11/14/2017 6:12 PM) [...] Specimen Performing Laboratory Blood MAIN LAB [address] [place] [address] * MAGNESIUM (11/14/2017 6:12 PM) Component Value Ref Range Magnesium 2.1 1.6 - 2.6 mg/dL Specimen Performing Laboratory Blood [facility] MAIN LAB [address] [place] [address] * PHOSPHORUS (11/14/2017 6:12 PM) Component Value Ref Range Phosphorus 4.5 (H) 2.0 - 4.0 MG/DL Specimen Performing Laboratory Blood [facility] MAIN LAB [address] [place] [address] * PTT (APTT) (11/14/2017 6:12 PM) Component Value Ref Range APTT 27.7 21.0 - 39.0 SEC Specimen Performing Laboratory Blood MAIN LAB [address] [place] [address] * PROTIME INR (PT) (11/14/2017 6:12 PM) Component Value Ref Range INR 1.2 0.8 - 1.2 Specimen Performing Laboratory Blood MAIN LAB [address] [place] [address] * BRONCHOSCOPY (11/14/2017 2:52 PM) Component Value Ref Range Provation Report Patient Name: Jonathon Jay Procedure Date: 11/14/2017 2:52 PM CSN: [id number] Date of : 1945 Gender: Female Attending Physician: Kaushik Gutierrez MD Procedure: Bronchoscopy Indications: Mediastinal mass Providers: Kaushik Gutierrez MD (Doctor), Ting Stafford, RN (Nurse), Gloria Day, RN (Nurse), Oscar No, Acoustical Engineer (Techn ician) Referring Physician: Leyla Lopez Medications: [...] Specimen Performing Laboratory Blood MAIN LAB [address] [place] [address] * PROTIME INR (PT) (11/14/2017 12:30 PM) Component Value Ref Range INR 1.2 0.8 - 1.2 Specimen Performing Laboratory Blood MAIN LAB [address] [place] [address] * FINE NEEDLE ASPIRATE (FNA) (11/14/2017 9:04 AM) Component Value Ref Range Cytology [email or web address] Department of Pathology and Laboratory Medicine [address] [place] [address] Surgical Pathology Office: [phone] CYTOLOGY REPORT NAME: JONATHON JAY SURG PATH #: [id number] MR #: [id number] ALT ID #: BILLING #: [id number] LOCATION: DATE OF PROCEDURE: 11/14/2017 AGE: 72 SEX: F DATE RECEIVED: 11/15/2017 : 1945 TIME RECEIVED: 09:04 PHYSICIAN: KAUSHIK GUTIERREZ [facility] DATE OF REPORT: 11/16/2017 COPY TO: KENYA RAMEY [facility] MD HARLEY MERCADO MD CROSSER, MICHAEL [facility] DATE OF PRINTIN11/16/2017 Material Received: A: FNA Lung-Right Mainstem History: 72 year old female, history of large mediastinal mass. Gross Description: ( 4 DQ direct smear, 4 Pap direct smear, 1 cell block) Rapid determination of adequacy was performed by the medical practitioners, TANNER, on Diff-Quik stained slide(s). Pass one, two and three not adequate for evaluation. Pass four adequate for evaluation. Pass five, six, and seven into RPMI. ################################################## ###################### Final Diagnosis: A. 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 See comment. Please also see concurrent cytology report ([id number]). Comment: Extensive crush artifact is present. Immunohistochemical stains for figueredo-cytokeratin, CAM5.2, CD34, desmin, TTF-1, PAX-8, SOX-10, calretinin, and Ki-67 performed on the cell block are non-contributory due to a lack of lesional tissue. A biopsy/more extensive sampling is recommended for a definitive diagnosis. Pursuant to the Apprentice Architect Program at the [facility] Pathology Department, selected slides from this case [...] Performing Laboratory Blood [facility] MAIN LAB [address] [place] [address] * CBC AND DIFF (11/14/2017 5:34 AM) [...] Specimen Performing Laboratory Blood MAIN LAB [address] [place] [address] * CHEST 2 VIEWS (11/13/2017 7:00 AM) [...] Interface, Radiant Results - 11/13/2017 12:02 PM GRAIN BROKER Procedure: CHEST 2 VIEWS Clinical Indication: Cough. [...] Performing Laboratory Blood [facility] MAIN LAB [address] [place] [address] * CBC AND DIFF (11/13/2017 6:02 AM) [...] Performing Laboratory Blood [facility] MAIN [facility] [address] [place] [address] * ENDOSCOPIC ULTRASOUND REPORT (11/12/2017 6:12 PM) Component Value Ref Range Provation Report Patient Name: Pierre Garner Procedure Date: 11/12/2017 6:12 PM CSN: [id number] Date of : 1945 Gender: Female Attending Physician: Michael Wade MD Procedure: Upper EUS Indications: Gorman spected mass in mediastinum on chest CT Providers: Michael Wade MD (Doctor), Truong Burrell MD (Fellow), Miri Hairston (Nurse), Randi Levin, Acoustical Engineer (Acoustical Engineer) Referring Physician: Referral Self Medications: Mo nitored [...] 23 seconds Procedure Code(s): --- Professional --- 44185, Esophagogastroduodenoscopy, flexible, transoral; with endoscopic ultrasound examination, including the esophagus, stomach, and either the duodenum or a surgically altered stomach where the jejunum is examined distal to the anastomosis Diagnosis Code(s): --- Professional --- J98.59, Other diseases of mediastinum, not elsewhere classified R93.8, Abnormal findings on diagnostic imaging of other specified body structures CPT copyright 2016 [employer]. All rights reserved. The codes documented in this report are preliminary and upon stewardesses teacher review may be revised to meet current [...] Specimen Performing Laboratory Blood MAIN LAB [address] [place] [address] * CBC AND DIFF (11/12/2017 5:14 AM) [...] Specimen Performing Laboratory Blood MAIN LAB [address] [place] [address] * COMPREHENSIVE METABOLIC PANEL (11/11/2017 5:33 AM) [...] Specimen Performing Laboratory Blood MAIN LAB [address] [place] [address] * CBC AND DIFF (11/11/2017 5:33 AM) [...] Specimen Performing Laboratory Blood MAIN LAB [address] [place] [address] * COMPREHENSIVE METABOLIC PANEL (11/10/2017 4:36 AM) [...] Performing Laboratory Blood [facility] MAIN [facility] [address] [place] [address] * CBC AND DIFF (11/10/2017 4:36 AM) [...] Blood [facility] MAIN LAB [address] [place] [address] * NON-RESEARCH ASSOC CYTOLOGY (BODY FLUIDS/TISSUE) (11/09/2017 2:22 PM) Component Value Ref Range Cytology [email or web address] Department of Pathology and Laboratory Medicine [address] [place] [address] Surgical Pathology Office: [phone] CYTOLOGY REPORT NAME: JONATHON JAY CYTOLOGY #: [id number] MR #: [id number] ALT ID #: BILLING #: [id number] LOCATION: DATE OF PROCEDURE: 11/09/2017 AGE: 72 [...] Interface, Radiant Results - 11/09/2017 5:41 PM GRAIN BROKER PET/CT NECK, CHEST, ABDOMEN AND PELVIS CLINICAL [...] effusion MEDICATIONS: 5 mL subcutaneous 2% lidocaine SCRIPT WORKER: Amadou Kaur M.D., M.D. The risks, benefits, [...] Interface, Radiant Results - 11/12/2017 10:39 AM GRAIN BROKER Ultrasound-guided Thoracentesis CLINICAL INDICATION: Symptomatic pleural effusion MEDICATIONS: 5 mL subcutaneous 2% lidocaine SCRIPT WORKER: Matthew Darci M.D., Amadou [place], M.D. The risks, benefits, and alternatives to [...] provided for laboratory evaluation. Approved by Amadou Zneg M.D. on 11/09/2017 12:39 PM By my [...] Interface, Radiant Results - 11/09/2017 12:28 PM GRAIN BROKER Chest, single view with inspiration and expiration [...] Interface, Radiant Results - 11/09/2017 5:47 PM GRAIN BROKER CHEST IMMEDIATE POST PROCEDURE INSP/EXP Clinical Indication: [...] FINAL 11/09/2017 Specimen Performing Laboratory Thoracentesis Fluid [facility] [address] [place] [address] * PLEURAL FLUID TOTAL PROTEIN (11/09/2017 10:36 AM) Component Value Ref Range Pleural Fluid Total 3.6 (H)Comment: Serum to pleural fluid protein <1.1 g/ dL Protein gradient >3.1 g/dL is suggestive of an exudate Specimen Performing Laboratory Pleural fluid - [facility] Thoracentesis Fluid [address] [place] [address] * PLEURAL FLUID PH (11/09/2017 10:36 AM) Component Value Ref Range Pleural Fluid Ph 7.45 (L) 7.60 - 7.66 Specimen Performing Laboratory Pleural fluid [facility] Thoracentesis Fluid [address] [place] [address] * PLEURAL FLUID LACTATE DEHYDROGENASE (11/09/2017 10:36 AM) Component Value Ref Range Pleural Fluid Lactate 398 (H)Comment: Higher levels suggestive of 67 - 140 U/L Dehydrogenase exudate Specimen Performing Laboratory Pleural fluid [facility] Thoracentesis Fluid [address] [place] [address] * PLEURAL FLUID GLUCOSE (11/09/2017 10:36 AM) Component Value Ref Range Pleural Fluid Glucose 102 (H) 70 - 100 mg/dL Comment: Glucose <60 mg/dL associated with parapneumonic effusion, tuberculosis, malignancy, empyema, and rheumatoid disease Specimen Performing Laboratory Pleural fluid [facility] Thoracentesis Fluid [address] [place] [address] * PLEURAL FLUID ALBUMIN (11/09/2017 10:36 AM) Component Value Ref Range Pleural Fluid Albumin 2.4Comment: Pleural fluid albumin gradient >1.2 g/ dL g/dL is suggestive of an exudate Specimen Performing Laboratory Pleural fluid - [facility] Thoracentesis Fluid [address] [place] [address] * CULTURE-WOUND/TISSUE/FLUID(AEROBIC ONLY)W/SENSITIVITY (11/09/2017 10:36 AM) Component Value Ref Range Battery Name ROUTINE CULTURE Specimen Description THORACENTESIS FLUID Special Requests NONE Direct Gram Stain FEW NEUTROPHILS NO ORGANISMS SEEN Culture NO GROWTH 5 DAYS Report Status FINAL 11/14/2017 Specimen Performing Laboratory Pleural fluid - [facility] Thoracentesis Fluid [address] [place] [address] * CULTURE-ANAEROBIC (11/09/2017 10:36 AM) Component Value Ref Range Battery Name ANAEROBE CULTURE Specimen Description THORACENTESIS FLUID Special Requests NONE Culture NO ANAEROBES ISOLATED Report Status FINAL 11/14/2017 Specimen Performing Laboratory Pleural fluid - [facility] Thoracentesis Fluid [address] [place] [address] * CELL COUNT W/DIFF-FLUIDS (11/09/2017 10:36 AM) [...] report. Specimen Performing Laboratory Pleural fluid - [facility] Thoracentesis Fluid [address] [place] [address] * LEGIONELLA ANTIGEN URINE,RAN (11/09/2017 7:22 AM) Component Value Ref Range Battery Name LEGIONELLA URINE ANTIGEN Specimen Description URINE Special Requests NONE Antigen NEGATIVE Report Status FINAL 11/09/2017 Specimen Performing Laboratory Urine [facility] [address] [place] [address] * STREPTOCOCCUS PNEUMO AG, URINE (11/09/2017 7:22 AM) Component Value Ref Range Battery Name STREP PNEUMO AG, UR Specimen Description URINE Special Requests NONE Antigen NEGATIVE Report Status FINAL 11/09/2017 Specimen Performing Laboratory Urine [facility] [address] [place] [address] * RVP VIRAL PANEL PCR (11/09/2017 3:05 [...] NOT DETECTED Specimen Performing Laboratory Nasopharyngeal Swab [facility] [address] [place] [address] * BNP (B-TYPE NATRIURETIC PEPTI) (11/09/2017 2:55 AM) Component Value Ref Range B Type Natriuretic 28.0 0 - 100 PG/ML Peptide Specimen Performing Laboratory Blood MAIN LAB [address] [place] [address] * CULTURE-BLOOD W/SENSITIVITY (11/09/2017 2:55 AM) Component Value Ref Range Battery Name BLOOD CULTURE Specimen Description BLOOD RIGHT FA Special Requests NONE Culture NO GROWTH 5 DAYS Report Status FINAL 11/15/2017 Specimen Performing Laboratory Blood [facility] [address] [place] [address] * CULTURE-BLOOD W/SENSITIVITY (11/09/2017 2:55 AM) Component Value Ref Range Battery Name BLOOD CULTURE Specimen Description BLOOD LEFT ANTECUBITAL Special Requests NONE Culture NO GROWTH 5 DAYS Report Status FINAL 11/15/2017 Specimen Performing Laboratory Blood [facility] [address] [place] [address] * TSH WITH FREE T4 REFLEX (11/09/2017 2:55 AM) Component Value Ref Range TSH 1.008 0.35 - 5.00 MCU/ML Specimen Performing Laboratory Blood [facility] [address] [place] [address] * TROPONIN-I (11/09/2017 2:55 AM) Component Value Ref Range Troponin-I 0.01 0.0 - 0.05 NG/ML Specimen Performing Laboratory Blood MAIN LAB [address] [place] [address] * COMPREHENSIVE METABOLIC PANEL (11/09/2017 2:55 AM) [...] Specimen Performing Laboratory Blood MAIN LAB [address] [place] [id number] * PROTIME INR (PT) (11/09/2017 2:55 AM) Component Value Ref Range INR 1.1 0.8 - 1.2 Specimen Performing Laboratory Blood MAIN LAB [address] [place] [address] * CBC AND DIFF (11/09/2017 2:55 AM) [...] Performing Laboratory Blood [facility] MAIN [facility] [address] [place] [address] * GENERAL RAD CHEST EXTERNAL IMAGING (11/08/2017 5:05 PM) Narrative This order has been auto finalized and does not contain a result. * CT CHEST EXTERNAL IMAGING (11/08/2017) Narrative This order has been auto finalized and does not contain a result. in this encounter Visit Diagnoses Diagnosis Mediastinal mass Swelling, mass, or lump in chest Admitting Diagnoses Diagnosis hypoxia with poss sarcoma rt lung Mediastinal mass Mediastinal mass - Mediastinal mass Swelling, mass, or lump in chest Lung mass - Mediastinal mass Swelling, mass, or lump in chest
--- OUTSIDE RECORDS SUMMARY | 2017-11-26 14:40 | XMS REPORT | Encounter Summary ---
Author Author [facility] Organization [facility] Address Unknown Phone Unavailable Care Team Providers Care Gastroenterology Nurse Name Role Phone Tad Campbell MD PCP Encounter Details Date Type Department Care Team Description 11/09/2017 Procedure Pass 63 - TICU [address] [place] [address] Social History Tobacco Use Types Packs/Day Years [...]
--- OUTSIDE RECORDS SUMMARY | 2017-11-26 14:41 | XMS REPORT | Encounter Summary ---
Author Author [facility] Organization [facility] Address Unknown Phone Unavailable Care Team Providers Care Rock Picker Name Role Phone PCP Unavailable Encounter Details Date Type Department Care Team Description 11/08/2017 Hospital [facility] Encounter Hospital Radiology [address] [place] [address] Social History Tobacco Use Types Packs/Day Years Used Date Never Assessed Sex Assigned at Date Recorded Not on file as of this encounter Medications at Time of Discharge [...] 1 tablet by mouth MULTI-VITAMIN) tablet daily. estradiol (ESTRACE) 0.5 Take 0.5 mg by mouth 11/17/2017 mg tablet daily. estradiol (ESTRACE) 1 mg Take 0.5 mg by mouth 11/10/2017 tabletIndications: For daily. mood changes levothyroxine (SYNTHROID) Take 137 mcg by mouth 11/10/2017 100 mcg tablet daily 30 minutes before breakfast. as of this encounter Plan of Treatment Not on fileas of this encounter Visit Diagnoses Not on filein this encounter
--- OUTSIDE RECORDS SUMMARY | 2017-11-26 14:41 | XMS REPORT | Encounter Summary ---
Author Author [facility] Organization [facility] Address Unknown Phone Unavailable Care Team Providers Care Zipper Measurer Name Role Phone PCP Unavailable Encounter Details Date Type Department Care Team Description 11/08/2017 Hospital [facility] Encounter Hospital Radiology [address] [place] [address] Social History Tobacco Use Types [...]
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
--- NOTE | 2017-11-26 15:15 | Diagnostic Imaging Report ---
INDICATION: Shortness of breath. Comparison made with prior examination 11/21/2017. PA and lateral views of chest were obtained. FINDINGS: The heart size is stable. Left lung remains clear. There is increased opacification of the right lung with only minimal residual aeration of the right upper lobe. This is presumably secondary to underlying consolidation and fluid. There is no pneumothorax. Mediastinum is unremarkable. IMPRESSION: Increasing opacification of right hemithorax with only minimal residual aeration of the right upper lobe. Dictated by: Dictated on workstation # [id number]
--- NOTE | 2017-11-26 15:43 | ED General ---
General Chief Complaint: Respiratory Problems Stated Complaint: SOB Nursing Triage Note: pt reports soa starting today that has gradually gotten worse throiughout the day. pt has R sided Lung mass she is currently seeing [facility] for and due to start chemo this week. Pt reports she has already had to have 2 chest tubes to removed fluid. Nursing Sepsis Screen: No Definite Risk Source of Information: Patient, Old Records Exam Limitations: No Limitations History of Present Illness Date Seen by Provider: Nov 26, 2017 Time Seen by Provider: 14:35 Initial Comments This 72-year-old woman with known right lung cancer presents to the emergency room with worsening shortness of breath. She has pleural effusion associated with her mass and received thoracentesis therapy by Dr. Fritz last week. She did have some relief after that. Oxygen saturation is noted to be 93 percent on 2 L by nasal cannula. She does not have oxygen for use at home. Her primary care provider is Dr. Campbell. Her oncologist is Dr. Leon. Her surgeon is Dr. Fritz. She is scheduled to have port placement on Sunday and start chemotherapy on . Today is Sunday. Allergies and Home Medications Allergies Coded Allergies: meperidine (Verified Allergy, Unknown, RECEIVED FENTANYL IN SURGERY, ) PT STATES "DEMEROL MAKES ME DIZZY AND TURNS ME ANDERSON" Uncoded Allergies: TAPE (Allergy, Unknown, 01/18/07) Home Medications Calcium Carbonate/Vitamin D3 1 Each Tablet, 1 TAB PO DAILY, (Reported) Enalapril Maleate 10 Mg Tablet, 10 MG PO DAILY, (Reported) Estradiol 0.5 Mg Tablet, 0.5 MG PO DAILY, (Reported) Hydrochlorothiazide 12.5 Mg Tablet, 12.5 MG PO DAILY, (Reported) Hydrocodone/Acetaminophen 1 Each Tablet, 1 EACH PO Q4H PRN for PAIN Prescribed by: JUAN MOYA on 02/09/161815 Levetiracetam 500 Mg Tablet, 500 MG PO BID, (Reported) Levothyroxine Sodium 100 Mcg Tablet, 100 MCG PO DAILY Prescribed by: JUAN MOYA on 02/09/161816 Multivitamin 1 Each Tablet, 1 TAB PO DAILY, (Reported) Verapamil HCl 240 Mg Tablet.er, 240 MG PO DAILY, (Reported) Vitamin B Complex & Vit C No.4 150 Mg Tablet, 150 MG PO DAILY, (Reported) Patient Home Medication List Home Medication List Reviewed: Yes Constitutional: no symptoms reported EENTM: no symptoms reported Respiratory: see HPI Cardiovascular: no symptoms reported Gastrointestinal: no symptoms reported Genitourinary: no symptoms reported Musculoskeletal: no symptoms reported Skin: no symptoms reported Psychiatric/Neurological: No Symptoms Reported Hematologic/Lymphatic: See HPI Past Gpkgzjt-Pmnfwj-Zbobkp Hx Patient Social History Alcohol Use: Denies Use Recreational Drug Use: No Smoking Status: Never a Smoker 2nd Hand Smoke Exposure: No Recent Foreign Travel: No Contact w/Someone Who Travel: No Recent Infectious Disease Expo: No Recent Hopitalizations: Yes Physical Abuse: No Sexual Abuse: No Mistreated: No Fear: No Immunizations Up To Date Date of Influenza Vaccine: Jun 10, 2015 Surgeries History of Surgeries: Yes (R LEG VARICOSE VEIN STRIPPED, BREAST LYMPH NODE REMOVED, bladder tie up, thoracentesis) Surgeries: Gallbladder, Hysterectomy, Thyroidectomy Respiratory History of Respiratory Disorde: Yes (tb as toddler- gets cxr q 5 yrs, lung cancer) Respiratory Disorders: Tuberculosis Currently Using CPAP: No Currently Using BIPAP: No Cardiovascular History of Cardiac Disorders: Yes Cardiac Disorders: Hypertension Neurological History of Neurological Disord: No (had seizure during EEG test, none before or after) Reproductive System : No Hx Reproductive Disorders: No Genitourinary History of Genitourinary Disor: No Gastrointestinal History of Gastrointestinal Di: No Musculoskeletal History of Musculoskeletal Dis: Yes Musculoskeletal Disorders: Arthritis, Chronic Back Pain Endocrine History of Endocrine Disorders: No HEENT History of HEENT Disorders: No Cancer History of Cancer: Yes Cancer: Lung Psychosocial History of Psychiatric Problem: No Suicide Risk Score: 0 Integumentary History of Skin or Integumenta: No Blood Transfusions History of Blood Disorders: No Family Medical History Significant Family History: Cancer Family Medial History: Arthritis G8 SISTER Kidney disease G8 SISTER Neoplasm 19 FATHER (lung/colon/ liver ca) 19 MOTHER (leukemia) Physical Exam Vital Signs Vital Signs - First Documented 11/26/17 14:46 Temp 98.1 Pulse 85 Resp 30 B/P (MAP) 119/57 (77) Pulse Ox 94 O2 Delivery Nasal Cannula Capillary Refill : Less Than 3 Seconds General Appearance: WD/WN, Mild Distress (dyspneic) HEENT: PERRL/EOMI, Normal ENT Inspection Respiratory: No Accessory Muscle Use, No Respiratory Distress, Decreased Breath Sounds (near absent lung sounds on the right), Other (tachypnea and dyspnea) Cardiovascular: Regular Rate, Rhythm, No Murmur Neurologic/Psychiatric: Alert, Oriented x3, No Motor/Sensory Deficits, Normal 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, 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 Fritz is agreeable to performing thoracentesis again. Ultrasound was performed and revealed over 1000 mL of pleural effusion. Dr. Fritz will come to the hospital to perform the thoracentesis. Progress Note #2: Progress Note Patient returned from thoracentesis with successful drainage of approximately 1500 mL. She was feeling better and maintaining an oxygen saturation around 90- 92 percent on room air. I contacted the Katie at the cancer center who will help her arrange testing for home O2 qualification tomorrow. Diagnostic Imaging Diagonstic Imaging: Xray Plain Films/CT/US/NM/MRI: chest Comments Chest x-ray viewed by me and report reviewed. See report below: NAME: JONATHON FONTENOT [employer] REC#: [id number] PT STATUS: REG ER : 1945 PHYSICIAN: PASCUAL LAINEZ MD ADMIT DATE: 11/26/17/ER Draft Date of Exam:11/26/17 CHEST PA/LAT (2 VIEW) INDICATION: Shortness of breath. Comparison made with prior examination 11/21/2017. PA and lateral views of chest were obtained. FINDINGS: The heart size is stable. Left lung remains clear. There is increased opacification of the right lung with only minimal residual aeration of the right upper lobe. This is presumably secondary to underlying consolidation and fluid. There is no pneumothorax. Mediastinum is unremarkable. IMPRESSION: Increasing opacification of right hemithorax with only minimal residual aeration of the right upper lobe. Dictated on workstation # [id number] Dict: 11/26/17 1511 Trans: 11/26/17 1515 [facility] [id number] Interpreted by: SHEILA LEVI MD Departure Impression Impression: Primary Impression: Pleural effusion Additional Impressions: Lung cancer Qualified Codes: C34.81 - Malignant neoplasm of overlapping sites of right bronchus and lung Hypoxia Disposition: HOME, SELF-CARE Condition: Improved Departure-Patient Inst. Decision time for Depature: 17:05 Referrals: SUMANTH CAMPBELL MD (PCP/Family) Primary Care Physician Patient Instructions: Lung Cancer, Pleural Effusion Add. Discharge Instructions: The [facility] should be contacting you tomorrow to help arrange pulse oximetry testing and hopefully qualify you for home oxygen. If you are unable to arrange this through the Cancer Center, try contacting Dr. Campbell's office. Return to the emergency room if you have worsening symptoms. Keep your follow- up appointments and scheduled procedures. All discharge instructions reviewed with patient and/or family. Voiced understanding. Copy Copies To 1: AUSTIN LEON MD Copies To 2: SUMANTH CAMPBELL MD, JOSHUA T MD Nov 26, 2017 15:43
--- NOTE | 2017-11-26 16:33 | Diagnostic Imaging Report ---
INDICATION: Thoracentesis. FINDINGS: PA view of the chest is obtained with comparison made to study of earlier in the day. There is reduction in the right pleural fluid. There is continued elevation of the right hemidiaphragm with volume loss in the right lung. There is no evidence of pneumothorax. Left lung appears clear. IMPRESSION: Reduction in right pleural fluid with continued elevation of the right hemidiaphragm and associated basilar atelectasis. Dictated by: Dictated on workstation # [id number]
--- NOTE | 2017-11-26 16:49 | Diagnostic Imaging Report ---
INDICATION: Pleural effusion, shortness of breath. TECHNIQUE: Multiple real time momin scale sonographic images were obtained of the bilateral hemithoraces. CORRELATION STUDY: Chest 11/26/2017. FINDINGS: Imaging of the right chest demonstrates what appears to be a large right pleural effusion. No appreciable left-sided effusion. IMPRESSION: 1. Right pleural effusion. Dictated by: Dictated on workstation # [id number]
--- NOTE | 2017-11-26 17:05 | Consultation ---
History of Present Illness History of Present Illness Patient Consulted On(anjel/time) 11/26/17 17:00 Date Seen by Provider: Nov 26, 2017 Time Seen by Provider: 15:26 History of Present Illness Consult requested in emergency department by Dr. Dupont for pleural effusion right . Patient is 72-year-old female with lung cancer who has a right pleural effusion. She had a strain last week. Over the last couple days she's had increasing shortness of air and decided (department today because of worsening symptoms. Patient had a hard time catching her breath and any activity causing it to worsen. Patient did have some relief of her last thoracentesis. Patient is planning for port placement on Sunday and is soon start chemotherapy treatment after that. Patient feels that she needs a thoracentesis again at this time. Chest x-ray demonstrating an increasing right opacification of right hemithorax and ultrasound demonstrates effusion. Allergies and Home Medications Allergies Coded Allergies: meperidine (Verified Allergy, Unknown, RECEIVED FENTANYL IN SURGERY, ) PT STATES "DEMEROL MAKES ME DIZZY AND TURNS ME ANDERSON" Uncoded Allergies: TAPE (Allergy, Unknown, 01/18/07) Home Medications Calcium Carbonate/Vitamin D3 1 Each Tablet, 1 TAB PO DAILY, (Reported) Enalapril Maleate 10 Mg Tablet, 10 MG PO DAILY, (Reported) Estradiol 0.5 Mg Tablet, 0.5 MG PO DAILY, (Reported) Hydrochlorothiazide 12.5 Mg Tablet, 12.5 MG PO DAILY, (Reported) Hydrocodone/Acetaminophen 1 Each Tablet, 1 EACH PO Q4H PRN for PAIN Prescribed by: JUAN MOYA on 02/09/161815 Levetiracetam 500 Mg Tablet, 500 MG PO BID, (Reported) Levothyroxine Sodium 100 Mcg Tablet, 100 MCG PO DAILY Prescribed by: JUAN MOYA on 02/09/161816 Multivitamin 1 Each Tablet, 1 TAB PO DAILY, (Reported) Verapamil HCl 240 Mg Tablet.er, 240 MG PO DAILY, (Reported) Vitamin B Complex & Vit C No.4 150 Mg Tablet, 150 MG PO DAILY, (Reported) Patient Home Medication List Home Medication List Reviewed: Yes Past Szdyqwh-Lcfocw-Aukplp Hx Patient Social History Alcohol Use: Denies Use Recreational Drug Use: No Smoking Status: Never a Smoker 2nd Hand Smoke Exposure: No Recent Foreign Travel: No Contact w/Someone Who Travel: No Recent Infectious Disease Expo: No Recent Hopitalizations: Yes Immunizations Up To Date Date of Influenza Vaccine: Jun 10, 2015 Surgeries History of Surgeries: Yes (R LEG VARICOSE VEIN STRIPPED, BREAST LYMPH NODE REMOVED, bladder tie up) Surgeries: Gallbladder, Hysterectomy, Thyroidectomy Respiratory History of Respiratory Disorde: Yes (tb as toddler- gets cxr q 5 yrs, lung cancer) Respiratory Disorders: Tuberculosis Cardiovascular History of Cardiac Disorders: Yes Cardiac Disorders: Hypertension Neurological History of Neurological Disord: No (had seizure during EEG test, none before or after) Reproductive System : No Hx Reproductive Disorders: No Genitourinary History of Genitourinary Disor: No Gastrointestinal History of Gastrointestinal Di: No Musculoskeletal History of Musculoskeletal Dis: Yes Musculoskeletal Disorders: Arthritis, Chronic Back Pain Endocrine History of Endocrine Disorders: No HEENT History of HEENT Disorders: No Cancer History of Cancer: Yes Cancer: Lung Psychosocial History of Psychiatric Problem: No Integumentary History of Skin or Integumenta: No Blood Transfusions History of Blood Disorders: No Family Medical History Significant Family History: Cancer Family Medial History: Arthritis G8 SISTER Kidney disease G8 SISTER Neoplasm 19 FATHER (lung/colon/ liver ca) 19 MOTHER (leukemia) Review of Systems-General Constitutional: no symptoms reported EENTM: no symptoms reported Respiratory: see HPI Cardiovascular: no symptoms reported Gastrointestinal: no symptoms reported Genitourinary: no symptoms reported Musculoskeletal: no symptoms reported Skin: no symptoms reported Psychiatric/Neurological: No Symptoms Reported Physical Exam-General Problems Physical Exam Vital Signs Vital Signs - First Documented 11/26/17 14:46 Temp 98.1 Pulse 85 Resp 30 B/P (MAP) 119/57 (77) Pulse Ox 94 O2 Delivery Nasal Cannula Capillary Refill : Less Than 3 Seconds General Appearance: mild distress HEENT: normal ENT inspection Neck: supple Respiratory: other (decreased breath sounds on right) Cardiovascular: regular rate, rhythm Gastrointestinal: non tender, soft, no organomegaly Rectal: deferred Back: normal inspection Extremities: non-tender, normal inspection 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 She understands risk and benefits and wishes to proceed. Once proceed and chest tray after procedure okay to be discharged home. Patient to continue to follow up with plan of port placement on Sunday. JEREMIAH VALVERDE DO Nov 26, 2017 17:05
--- NOTE | 2017-11-27 00:45 | OPERATIVE REPORT ---
DATE OF SERVICE: 11/26/2017 PREOPERATIVE DIAGNOSIS: Recurrent right pleural effusion. POSTOPERATIVE DIAGNOSIS: Recurrent right pleural effusion. PROCEDURE: Right ultrasound-guided thoracentesis. SURGEON: Jeremiah Fritz DO. ANESTHESIA: Local 1% lidocaine 3 mL. ESTIMATED BLOOD LOSS: None. INDICATIONS: The patient is a 72-year-old female with recurrent right pleural effusion. She understands risks and benefits of procedure and wished to proceed with procedure. Consent was signed in the chart. PROCEDURE: The patient was taken to the procedure room. Ultrasound was used to locate largest pocket for placement. The area was then prepped and draped. A timeout was performed. The local anesthetic was then infiltrated into the area. A #11 blade scalpel was used to make a small stab incision. A safety thoracentesis needle and catheter were then advanced until fluid was withdrawn and the catheter was then advanced into the chest cavity and the needle was removed. A total of 1500 mL of a slightly dark red-tinged clear fluid was removed. Upon completion, the patient started breathing easier. She had the catheter removed and a sterile bandage applied. She had a chest x-ray performed which demonstrated no pneumothorax. The patient taken back to the Emergency Department in stable condition. Job ID: [id number] DocumentID: [id number] Dictated Date: 11/26/2017 17:13:30 Head Of Research & Insights Date: 11/27/2017 00:45:09 Dictated By: JEREMIAH FRITZ DO
[2017-11-27] MEDS ORDERED: LEVO100T7 PO ×2 (10:07)
--- NOTE | 2017-11-27 13:05 | Diagnostic Imaging Report ---
INDICATION: Right-sided pleural effusion. FINDINGS: Sonographic guidance was provided for Dr. Fritz for thoracentesis. Two images demonstrate a large amount of right pleural fluid. Approximately 1500 mL of fluid was removed. IMPRESSION: Sonographic guidance for thoracentesis on the right performed by Dr. Fritz. Dictated by: Dictated on workstation # [id number]
[2017-11-28 17:22] VITALS: BP 123/62
== END 2017-11-26 17:22 | disposition home or self-care (01) ==
LOC: EDUNIT# 14:25 → ER 14:27
DX: C34.91 Malignant neoplasm of unspecified part of right bronchus or lung (principal); J91.8 Pleural effusion in other conditions classified elsewhere; R09.02 Hypoxemia; I10 Essential (primary) hypertension; Z80.1 Family history of malignant neoplasm of trachea, bronchus and lung; Z80.0 Family history of malignant neoplasm of digestive organs; Z80.8 Family history of malignant neoplasm of other organs or systems; Z99.81 Dependence on supplemental oxygen; Z92.21 Personal history of antineoplastic chemotherapy; Z88.5 Allergy status to narcotic agent; Z91.048 Other nonmedicinal substance allergy status; Z90.710 Acquired absence of both cervix and uterus; Z90.89 Acquired absence of other organs
CPT/HCPCS: 32555; 71045; 71046; 76604; 76942; 99282

== ENCOUNTER 2017-11-27 05:37 | Outpatient (CLI) | payer MEDICARE, OTHER ==
[~2017-11-27] VITALS: Ht 154.9 cm; Wt 88.9 kg
[~2017-11-27 05:37] MED LIST changes: -OXYC-529 PO
[2017-11-27] MEDS ORDERED: LEVO100T7 PO (10:07)
[2017-11-28] MEDS ORDERED: OXYC-529 PO (10:07)
== END 2017-11-27 10:14 ==
LOC: PREOP 05:37
PROVIDERS: ATTEND Surgery
DX: Z01.818 Encounter for other preprocedural examination (principal); C34.90 Malignant neoplasm of unspecified part of unspecified bronchus or lung

== ENCOUNTER → 2017-11-27 | Outpatient (CLI) | payer MEDICARE, OTHER ==
[~2017-11-27] MED LIST changes: +OXYC-529 PO
== END ==
LOC: PULM 12:53
PROVIDERS: ATTEND Internal Medicine Hematology & Oncology
DX: C49.9 Malignant neoplasm of connective and soft tissue, unspecified (principal); J98.59 Other diseases of mediastinum, not elsewhere classified; R06.02 Shortness of breath
CPT/HCPCS: 94761

== ENCOUNTER 2017-11-28 07:57 | Day surgery (SDC) | payer MEDICARE, OTHER ==
[~2017-11-28] VITALS: Ht 154.9 cm; Wt 88.9 kg
[2017-11-28 08:01] VITALS: BP 138/71
[2017-11-28] MEDS ORDERED: LACTATED RINGERS 1,000 ML IV PRN (08:05)
[2017-11-28] MEDS ORDERED: ceFAZolin 2 GM IV Premixed 50 ML IV ONE (08:15)
[2017-11-28] MEDS ORDERED: CATHETER FLUSH 10 ML SYR IV PRN (08:15)
[2017-11-28] MEDS ORDERED: OXYC-529 PO ×2 (10:07)
[2017-11-28] MEDS ORDERED: MIDAZOLAM 2 MG/2 ML (VERSED) VIAL ONE (10:10)
[2017-11-28] MEDS ORDERED: 0.9% SODIUM CHLORIDE PF INJ 20 ML VIAL ONE (10:12)
[2017-11-28] MEDS ORDERED: BUPIVACAINE 0.5% 30 ML (SENSORCAINE) VIAL ONE (10:12)
[2017-11-28] MEDS ORDERED: HEParin (CENTRAL IV FLUSH) 500 UNIT/5 ML SYR ONE (10:12)
[2017-11-28] MEDS ORDERED: LIDOCAINE 1% INJ 20 ML (XYLOCAINE) VIAL ONE (10:12)
--- NOTE | 2017-11-28 10:22 | Progress Note-Pre Operative ---
Pre-Operative Progress Note H&P Reviewed The H&P was reviewed, patient examined and no changes noted. Date Seen by Provider: Nov 28, 2017 Time Seen by Provider: : Date H&P Reviewed: Nov 28, 2017 Time H&P Reviewed: : Pre-Operative Diagnosis: spindle cell carcinoma thorax JEREMIAH VALVERDE DO Nov 28, 2017 10:22
[2017-11-28] MEDS ORDERED: PROPOFOL INJECTION 50 ML IV ONE (10:42)
--- NOTE | 2017-11-28 11:29 | Progress Note-Post Operative ---
Post-Operative Progess Note Surgeon (s)/Project Buyer (s) Surgeon JEREMIAH VALVERDE DO Project Buyer: NA Pre-Operative Diagnosis spindle cell carcinoma thorax Post-Operative Diagnosis SAME Procedure & Operative Findings Date of Procedure 11/28/17 Procedure Performed/Findings RIGHT IJ U/S GUIDED PORT PLACEMENT Anesthesia Type MAC C LOCAL Estimated Blood Loss Estimated blood loss (mL): MIN Specimens/Packing Specimens Removed NA JEREMIAH VALVERDE DO Nov 28, 2017 11:29
--- NOTE | 2017-11-28 11:32 | Discharge Inst-Simple/Standard ---
Discharge Inst-Standard Patient Instructions/Follow Up Plan of Care/Instructions/FU: 2 weeks Lam Activity as Tolerated: No Discharge Diet: Regular Diet Other Inst to Patient Follow up Appt: Make appointment for 2 week. Instructions: No lifting greater than 10 pounds. No strenuous activity. May shower in 24 hours, no tub bath or soaking. Use incentive spirometer at home as directed. No Smoking Skin/Wound Care: Keep area clean and dry. Place ice pack on fro 15 min off 30 min and repeat to reduce swelling and discomfort Symptoms to Report: Appetite Changes, Extremity Discoloration, Numbness/Tingling, Swelling Increased , Bleeding Excessive, Eyesight Changes, Pain Increased, Urine Color Change, Constipation(Persistent), Fever over 101 degree F, Pain/Pressure in chest, Urinating Difficulty, Cough Up/Vomit Blood, Heart Beat Irreg/Pounding, Pain/ Pressure in jaw, Vaginal Bleeding Increase, Cramps in feet or legs, Lightheadedness, Pain/Pressure in shoulder, Diarrhea(Persistent), Memory Changes Suddenly, Questions/Concerns, Weight gain consecutive days, Dizziness/ Fainting, Nausea/Vomiting, Shortness of Breath, Weight gain over 2 pounds If questions or concerns contact your physician Or seek help at emergency department. JEREMIAH VALVERDE DO Nov 28, 2017 11:32
--- NOTE | 2017-11-28 11:42 | Anesthesia-General Post-Op ---
MAC Patient Condition Mental Status/LOC: Same as Preop Cardiovascular: Satisfactory Nausea/Vomiting: Absent Respiratory: Satisfactory Pain: Controlled Complications: Absent Post Op Complications Complications None Follow Up Care/Instructions Patient Instructions None needed. Anesthesiology Discharge Order Discharge Order Patient is doing well, no complaints, stable vital signs, no apparent adverse anesthesia problems. No complications reported per nursing. MARSHALL VALDEZ CRNA Nov 28, 2017 11:42
[2017-11-28] MEDS ORDERED: ONDANSETRON 4 MG/2 ML (SDV) Z0FRAN IVP PRN (11:45)
[2017-11-28] MEDS ORDERED: morphine INJ 10 MG/ML 1ML (SYR OR VIAL) IVP PRN (11:45)
--- NOTE | 2017-11-28 12:09 | Diagnostic Imaging Report ---
INDICATION: Port-A-Cath placement Frontal chest obtained at 1148 hrs am, and compared to 11/26/2017. There is a new Port-A-Cath over the right chest with catheter entering the right internal jugular vein catheter tip overlying the upper SVC. There is no pneumothorax. There is near complete opacification of the right hemithorax with minimal aeration of the right apex, this has worsened compared to the previous study. The left lung is clear. IMPRESSION: New right-sided Port-A-Cath in place. There is near-complete opacification of the right hemithorax with minimal aeration of the right apex, worsened compared to the prior study. New Port-A-Cath appears to be in good position as above. Dictated by: Dictated on workstation # [id number]
[2017-11-28 12:10] VITALS: BP 123/59
[2017-11-28 12:45] VITALS: BP 127/59
[2017-11-28 12:58] VITALS: BP 127/59
--- NOTE | 2017-11-28 14:45 | OPERATIVE REPORT ---
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 POSTOPERATIVE DIAGNOSIS: Squamous cell carcinoma of thorax. PROCEDURE: The right internal jugular vein ultrasound-guided port placement. SURGEON: Jeremiah Fritz DO. ANESTHESIA: MAC with local. ESTIMATED BLOOD LOSS: Minimal. COMPLICATIONS: None. INDICATIONS: The patient is a 72-year-old female with squamous cell carcinoma of thorax. She understands risks and benefits of procedure and wished to proceed with procedure. Consent was signed in the chart. PROCEDURE: The patient was taken to the operating suite. She was prepped and draped in sterile fashion. Surgical pause was performed. Ultrasound was used to elevate in the right internal jugular vein. The micro access needle was used to access and dark nonpulsatile blood was withdrawn. The micro access wire was inserted and the needle was removed. Fluoroscopy assured proper placement. A small stab incision with an 11 blade scalpel was used at the insertion point. The dilator sheath was then advanced over the micro access wire and removed along with the dilator. The normal guidewire was inserted through the sheath and the sheath was then removed. This was then secured. Local anesthetic was infiltrated into the area prior to needle stick. A local skin was then infiltrated into the right chest also for the tract. A 15 blade scalpel was used to make incision over the right chest and a pocket was then created. A dilator sheath was then advanced over the guidewire under fluoroscopy and the dilator and sheath were removed. The Groshong catheter was inserted through the sheath and the sheath was removed. The catheter was then tunneled from the insertion point down to the pocket that was created. Fluoroscopy was used to cut the catheter to length. The port was then attached to it, placed within the pocket and then accessed without difficulty and then flushed with saline and then heparin. The port was left accessed for treatment tomorrow. The subcutaneous tissues were then reapproximated using 3-0 Vicryl. The skin was then closed using a SwiftSet at both neck incision and chest. The areas were then washed and dried and sterile bandages were applied. The patient tolerated procedure well without any complications. She was taken to recovery room in stable condition. Chest x-ray pending. Job ID: [id number] DocumentID: [id number] Dictated Date: 11/28/2017 11:41:07 Seismograph Shooter Date: 11/28/2017 14:45:27 Dictated By: JEREMIAH FRITZ DO
--- NOTE | 2017-11-28 18:48 | Diagnostic Imaging Report ---
INDICATION: Undergoing central line placement. EXAMINATION: Fluoroscopy was utilized by Dr. Fritz. FINDINGS: Single intraprocedure image demonstrates a right IJ Lvplif-G-Wabr catheter to be present. Tip is superimposed over the high right paramediastinal region. There does appear to be diffuse increased density suggested about the right lung apex. This could be reflective of an underlying large pleural effusion or consolidation. FLUOROSCOPY TIME: 25 seconds. IMPRESSION: Fluoroscopy was utilized for placement of a right IJ Cgltve-w-Mend catheter. If further assessment is desired, postprocedure chest radiograph is recommended. Dictated by: Dictated on workstation # [id number]
== END 2017-11-28 12:58 | disposition home or self-care (01) ==
LOC: SDC 07:57
PROVIDERS: ATTEND Surgery
DX: C76.1 Malignant neoplasm of thorax (principal); I10 Essential (primary) hypertension; Z88.1 Allergy status to other antibiotic agents; Z79.899 Other long term (current) drug therapy
CPT/HCPCS: 71045; 87081

== ENCOUNTER → 2017-12-04 | Outpatient (CLI) | payer MEDICARE, OTHER ==
[~2017-12-04] VITALS: Ht 154.9 cm; Wt 88.9 kg
[~2017-12-04] MED LIST changes: +OXYC-529 PO
[2017-12-04 14:10] VITALS: BP 134/80
--- NOTE | 2017-12-04 14:46 | Diagnostic Imaging Report ---
INDICATION: Status post right thoracentesis. TIME OF EXAMINATION: 2:57 PM. COMPARISON: 11/28/2017. FINDINGS: The right chest wall port remains in place. There has been some reduction in the right-sided pleural effusion status post thoracentesis. No pneumothorax is identified. A small caliber drain overlies the right base. The left lung is clear. IMPRESSION: Decrease in the right pleural effusion status post thoracentesis. No pneumothorax is detected. Dictated by: Dictated on workstation # [id number]
[2017-12-04 14:57] VITALS: BP 127/80
--- NOTE | 2017-12-04 15:17 | Diagnostic Imaging Report ---
INDICATION: Right-sided pleural effusion. FINDINGS: Sonographic guidance was provided for Dr. Fritz for a right-sided thoracentesis. Images demonstrate a large right pleural effusion. IMPRESSION: Ultrasound guided right-sided thoracentesis performed by Dr. Fritz. Dictated by: Dictated on workstation # [id number]
--- NOTE | 2017-12-04 19:47 | OPERATIVE REPORT ---
DATE OF SERVICE: 12/04/2017 PREOPERATIVE DIAGNOSIS: Recurrent right pleural effusion. POSTOPERATIVE DIAGNOSIS: Recurrent right pleural effusion. PROCEDURE: Ultrasound-guided right thoracentesis. SURGEON: Jeremiah Fritz DO ANESTHESIA: Local 1% lidocaine 3 mL. ESTIMATED BLOOD LOSS: None. COMPLICATIONS: None. INDICATIONS: The patient is a 72-year-old female with recurrent right pleural effusion. She understands risks and benefits of procedure with increasing shortness of breath as well. Consent was signed in the chart. DESCRIPTION OF PROCEDURE: The patient was taken to the procedure room. She was prepped and draped in sterile fashion. Timeout was performed. Ultrasound was used to locate fluid pocket, most successful for drainage. Local anesthetic was infiltrated into this area safety thoracentesis needle and catheter were then inserted and hooked up to vacuum suction. This did not do any further for the catheter was removed. It was reinserted and the pleural fluid was withdrawn and the catheter was then advanced again. Fluid was suctioned and a total of 1100 mL of slightly maikol colored fluid was returned. The catheter was then disconnected from suction. A chest x-ray was performed demonstrating no pneumothorax and the catheter was removed and sterile bandage was applied. The patient tolerated procedure well without any complications. She was discharged home in stable condition. Job ID: [id number] DocumentID: [id number] Dictated Date: 12/04/2017 19:13:19 State Attorney Date: 12/04/2017 19:46:11 Dictated By: JEREMIAH FRITZ DO [facility]
== END ==
LOC: RAD 13:51
PROVIDERS: ATTEND Surgery
DX: J90 Pleural effusion, not elsewhere classified (principal)
CPT/HCPCS: 32555; 71045

== ENCOUNTER → 2018-01-03 | Outpatient (CLI) | payer MEDICARE, OTHER ==
[~2018-01-03] MED LIST changes: +CA C1TAB75 PO; +CALC-6 PO; +CEFD300C3 PO; +DEXA4TAB PO; +DOCU-143 PO; +DOXY100C2 PO; +FURO20TA4 PO; +LEVO137T2 PO; +LOPE-134 PO; +MULT-166 PO; +ONDA8TAB12 PO; +PROC10TA10 PO; +SULF-222 PO
--- NOTE | 2018-01-03 13:54 | Diagnostic Imaging Report ---
EXAMINATION: PA and lateral Chest at 11:18 a.m. INDICATION: Lung mass. FINDINGS: As noted on the prior exam of 12/04/2017, much of the right lung is obscured by atelectasis/infiltrate and fluid. This appearance is quite similar to the prior study. The right upper lobe remains fairly well aerated. The left lung is generally clear. There may be a very small amount of fluid in the left lung base, however. The heart is stable in size. The mediastinum is not widened. The osseous structures are intact. The post-kyphoplasty changes involving L1 seen previously appear stable. The right-sided Port-A-Cath is unchanged in position. The Port-A-Cath does not seem to be as tightly folded on itself in the right supraclavicular region as on the prior study. IMPRESSION: There is persistent opacification of much of the right lung by atelectasis/infiltrate and fluid. There may now be a very small amount of fluid in the left lung base as well. The overall appearance of the chest is otherwise stable. Dictated by: Dictated on workstation # [id number]
== END ==
LOC: RAD 10:48
PROVIDERS: ATTEND Internal Medicine Hematology & Oncology
DX: R91.8 Other nonspecific abnormal finding of lung field (principal)
CPT/HCPCS: 71046

== ENCOUNTER 2018-01-04 12:34 | Observation (INO) | payer MEDICARE, OTHER ==
[~2018-01-04] VITALS: Ht 154.9 cm; Wt 83.5 kg
[~2018-01-04 12:34] MED LIST changes: -CA C1TAB75 PO; -CALC-6 PO; -CEFD300C3 PO; -DEXA4TAB PO; -DOCU-143 PO; -DOXY100C2 PO; -FURO20TA4 PO; -LEVO137T2 PO; -LOPE-134 PO; -MULT-166 PO; -ONDA8TAB12 PO; -PROC10TA10 PO; -SULF-222 PO
--- OUTSIDE RECORDS SUMMARY | 2018-01-04 13:02 | XMS REPORT | Continuity of Care Document ---
Author Author [employer] Organization [facility] Address Unknown Phone Unavailable Care Team Providers Care Personal Banking Assistant Name Role Phone [employer] Unavailable Unavailable Problems Medications Allergies, Adverse Reactions, Alerts Immunizations Results Vital Signs Encounters Location Location Details Encounter Type Encounter Number Reason For Visit Attending Provider ADM Date DC Date Status Source O 11/08/2017 11/08/2017 Active [facility] INPATIENT [id number] ANGELA MONSON 11/09/20172017 Active [facility] Procedures Plan of Care Social History Assessment and Plan Family History Advance Directives Functional Status
--- OUTSIDE RECORDS SUMMARY | 2018-01-04 13:03 | XMS REPORT | Clinical Summary ---
Author Author [facility] Organization [facility] Address Unknown Phone Unavailable Care Team Providers Care Mobile Marketing Manager Name Role Phone Tad Campbell MD PCP Source Comments Some departments are not documenting in the electronic medical record. If you do not see the information that you expected, contact Release of Information in the Health Information Management department at [phone] for further assistance in locating additional records.[facility] Allergies Active Allergy Reactions Severity Noted [...] 11/18/19 Active 100,000 unit/g topical 18 cream Active Problems Problem Noted Date Mediastinal mass 11/09/2017 Community acquired pneumonia 11/09/2017 Atelectasis of right lung 11/09/2017 Pleural effusion on right 11/09/2017 Acute hypoxemic respiratory failure (HCC) 11/09/2017 Lung mass 11/08/2017 Overview: Added automatically from request for surgery [id number] Encounters Date Type Specialty Care Team Description 11/14/2017 Procedure Pass 11/14/2017 Surgery Kaushik Whitley MD BRONCHOSCOPY WITH ULTRASOUND 11/13/2017 Anesthesia Hien Ha SRNA Event 11/13/2017 Prep for Case Pulmonology Kaushik Whitley MD Lung mass ( Primary Dx) 11/12/2017 Anesthesia Kaleigh Garcia MD Event 11/12/2017 Procedure Pass 11/12/2017 Surgery Michael Wade MD ESOPHAGOGASTRODUODENOSCOP Y ENDOSCOPIC ULTRASOUND 11/09/2017 Hospital Intensive Care Israel Garcia DO Lung mass - Encounter Susana Fulton MD [...] Taken Blood Pressure 142/75 11/17/2017 9:00 AM PRESS MAINTAINER Pulse 99 11/16/2017 8:00 PM PRESS MAINTAINER Temperature 36.8 C (98.2 F) 11/17/2017 9:00 AM PRESS MAINTAINER Respiratory Rate - - Oxygen Saturation 93% 11/17/2017 4:00 PM PRESS MAINTAINER Inhaled Oxygen - - Concentration Weight 90.4 kg (199 lb 4.7 oz) 11/14/2017 5:33 PM PRESS MAINTAINER Height 154.9 cm (5' 1") 11/09/2017 12:13 AM PRESS MAINTAINER Body Mass Index 37.66 11/14/2017 5:33 PM PRESS MAINTAINER Plan of Treatment Health Maintenance Due Date [...] CDT procedure are in the results section. TELEMETRY STRIPS-SCAN 11/19/2017 Results for this 11:55 AM CDT procedure are in the results section. ECG-SCAN 11/18/2017 Results for this 5:16 PM CDT procedure are in the results section. ECG-SCAN 11/18/2017 Results for this 5:15 PM CDT procedure are in the results section. BRONCHOSCOPY WITH 11/14/2017 Lung mass ULTRASOUND 1:30 PM PRESS MAINTAINER CONSULT IV THERAPY TEAM STAT 11/14/2017 12:18 PM PRESS MAINTAINER ESOPHAGOGASTRODUODENOSCOP 11/12/2017 Mediastinal mass Y ENDOSCOPIC ULTRASOUND 5:57 PM PRESS MAINTAINER CONSULT IV THERAPY TEAM Routine 11/12/2017 9:26 AM PRESS MAINTAINER CONSULT IV THERAPY TEAM STAT 11/09/2017 5:01 AM PRESS MAINTAINER from Last 3 Months Results * PROCEDURE RECORD-SCAN (11/22/2017 9:48 AM) Narrative Ordered by an unspecified provider. * TELEMETRY STRIPS-SCAN (11/19/2017 11:55 AM) Narrative Ordered by an unspecified provider. [...] Specimen Performing Laboratory Blood MAIN LAB [address] [place] [address] * PHOSPHORUS (11/17/2017 3:35 AM) Only the most recent of 4 results within the time period is included. Component Value Ref Range Phosphorus 3.9 2.0 - 4.0 MG/DL Specimen Performing Laboratory Blood MAIN LAB [address] [place] [address] * MAGNESIUM (11/17/2017 3:35 AM) Only the most recent of 4 results within the time period is included. Component Value Ref Range Magnesium 2.0 1.6 - 2.6 mg/dL Specimen Performing Laboratory Blood MAIN LAB [address] [place] [address] * COMPREHENSIVE METABOLIC PANEL (11/17/2017 3:35 AM) [...] not validated for use in drug dosing adjustments.Continue to use estimated creatinine clearance per dosing reference text.Please contact the Clinical Pharmacist for questions. eGFR >60 >60 mL/min Comment: The eGFR is not validated for use in drug dosing adjustments.Continue to use estimated creatinine clearance per dosing reference text.Please contact the Clinical Pharmacist for questions. Specimen Performing Laboratory [facility] [address] [place] [address] * PTT (APTT) (11/14/2017 6:12 PM) Component Value Ref Range APTT 27.7 21.0 - 39.0 SEC Specimen Performing Laboratory [facility] [address] [place] [address] * PROTIME INR (PT) (11/14/2017 6:12 PM) Only the most recent of 3 results within the time period is included. Component Value Ref Range INR 1.2 0.8 - 1.2 Specimen Performing Laboratory [facility] [address] [place] [address] * BRONCHOSCOPY (11/14/2017 2:52 PM) Component Value Ref Range Provation Report Patient Name: Jonathon Jay Procedure Date: 11/14/2017 2:52 PM CSN: [id number] Date of : 1945 Gender: Female Attending Physician: Kaushik Whitley MD Procedure:Bronchoscopy Indications:Mediastinal mass Providers:Kaushik Whitley MD (Doctor), Ting Stafford, RN (Nurse), Gloria Day, RN (Nurse), Oscar No, Starch Crab (Techn ician) Referring Physician:Leyla Lopez Medications:Tetricaine 0.25%/Epinephrine 0.003% 10 mL nebulizer, Tetric deborah 0.25%/Epinephrine 0.003% topically on airway mucosa 10 mL, General Anesthesia Complications:No immediate complications Findings: Endobronchial ultrasound was used [...] Blood [facility] [address] [place] [address] * FINE NEEDLE ASPIRATE (FNA) (11/14/2017 9:04 AM) Component Value Ref Range Cytology [facility] [email or web address] Department of Pathology and Laboratory Medicine [address] [place] [address] Surgical Pathology Office:[phone]:[phone] CYTOLOGY REPORT NAME: JONATHON JAY SURG PATH #: [id number] MR #: [id number] ALT ID #: [id number] #: [id number] LOCATION: DATE OF PROCEDURE: 11/14/2017 AGE:72 SEX: F DATE RECEIVED: 11/15/2017 : 1945TIME RECEIVED:09:04 PHYSICIAN: KAUSHIK WHITLEY [facility] DATE OF REPORT: 11/16/2017 COPY TO: KENYA RAMEY MD BRICE J ZOGLEMAN, MD CROSSER, MICHAEL [facility] DATE OF PRINTIN11/16/2017 Material Received: A: FNA Lung-Right Mainstem History: 72 year old female, history of large mediastinal mass. Gross Description: ( 4 DQ direct smear, 4 Pap direct smear, 1 cell block) Rapid determination of adequacy was performed by the supervisor spring up, TANNER, on Diff-Quik stained slide(s). Pass one, two and three not adequate for evaluation.Pass four adequate for evaluation.Pass five, six, and seven into RPMI. ################################################## ###################### Final Diagnosis: A. 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 See comment. Please also see concurrent cytology report ([id number]). Comment: Extensive crush artifact is present. Immunohistochemical stains for figueredo-cytokeratin, CAM5.2, CD34, desmin, TTF-1, PAX-8, SOX-10, calretinin, and Ki-67 performed on the cell block are non-contributory due to a lack of lesional tissue. A biopsy/more extensive sampling is recommended for a definitive diagnosis. Pursuant to the Aeronautical Inspector Program at the [facility] Pathology Department, selected slides from this [...] Out By+++ jl/11/16/2017 Interpreted by: KENDALL Lucas MDFellow Specimen Performing Laboratory [facility] LAB RESULTS * [...] Interface, Radiant Results - 11/13/2017 12:02 PM PRESS MAINTAINER Procedure: CHEST 2 VIEWS Clinical Indication: Cough. [...] Garner Procedure Date: 11/12/2017 6:12 PM CSN: [id number] Date of : 1945 Gender: Female Attending Physician: Michael Wade MD Procedure: Upper EUS Indications:Gorman spected mass in mediastinum on chest CT Providers: Michael Wade MD (Doctor), Truong Burrell MD (Fellow), Miri Hairston (Nurse), Randi Levin, Starch Crab (Starch Crab) Referring Physician:Referral Self Medications:Mo nitored Anesthesia Care Complications:No immediate complications. Estimated blood loss: Minimal. Procedure: [...] 0 hours 12 minutes 23 seconds Procedure Code(s):--- Professional --- 32223, Esophagogastroduodenoscopy, flexible, transoral; with endoscopic ultrasound examination, including the esophagus, stomach, and either the duodenum or a surgically altered stomach where the jejunum is examined distal to the anastomosis Diagnosis Code(s):--- Professional --- J98.59, Other diseases of mediastinum, not elsewhere classified R93.8, Abnormal findings on diagnostic imaging of other specified body structures CPT copyright 2016 [employer]. All rights reserved. The codes documented in this report are preliminary and upon enamel finisher review may be revised to meet current [...] Specimen Performing Laboratory [facility] OTHER RESULTS * NON-THERMODYNAMICIST CYTOLOGY (BODY FLUIDS/TISSUE) (11/09/2017 2:22 PM) Component Value Ref Range Cytology [facility] [email or web address] Department of Pathology and Laboratory Medicine [address] [place] [address] Surgical Pathology Office:[phone]:[phone] CYTOLOGY REPORT NAME: JONATHON JAY CYTOLOGY #: [id number] MR #: [id number] ALT ID #: BILLING #: [id number] LOCATION: DATE OF PROCEDURE: 11/09/2017 AGE:72 SEX: F DATE RECEIVED: 11/09/2017 : 1945TIME RECEIVED:14:22 PHYSICIAN: SUSANA WOO MD DATE OF REPORT: [...] Interface, Radiant Results - 11/09/2017 5:41 PM PRESS MAINTAINER PET/CT NECK, CHEST, ABDOMEN AND PELVIS CLINICAL [...] effusion MEDICATIONS: 5 mL subcutaneous 2% lidocaine WIRE WELDER: Matthew Bejarano M.D., Amadou Zeng M.D. The [...] Interface, Radiant Results - 11/12/2017 10:39 AM PRESS MAINTAINER Ultrasound-guided Thoracentesis CLINICAL INDICATION: Symptomatic pleural effusion MEDICATIONS: 5 mL subcutaneous 2% lidocaine WIRE WELDER: Matthew Bejarano M.D., Amadou Zeng M.D. The [...] Interface, Radiant Results - 11/09/2017 12:28 PM PRESS MAINTAINER Chest, single view with inspiration and expiration [...] Interface, Radiant Results - 11/09/2017 5:47 PM PRESS MAINTAINER CHEST IMMEDIATE POST PROCEDURE INSP/EXP Clinical Indication: [...] Pleural fluid - [facility] Thoracentesis Fluid [address] [place] [address] * PLEURAL FLUID PH (11/09/2017 10:36 AM) Component Value Ref Range Pleural Fluid Ph 7.45 (L) 7.60 - 7.66 Specimen Performing Laboratory Pleural fluid - [facility] Thoracentesis Fluid [address] [place] [address] * PLEURAL FLUID LACTATE DEHYDROGENASE (11/09/2017 10:36 AM) Component Value Ref Range Pleural Fluid Lactate 398 (H)Comment: Higher levels suggestive of 67 - 140 U/L Dehydrogenase exudate Specimen Performing Laboratory Pleural fluid - [facility] Thoracentesis Fluid [address] [place] [address] * PLEURAL FLUID GLUCOSE (11/09/2017 10:36 AM) Component Value Ref Range Pleural Fluid Glucose 102 (H) 70 - 100 mg/dL Comment: Glucose <60 mg/dL associated withparapneumonic effusion, tuberculosis, malignancy, empyema, and rheumatoid disease Specimen Performing Laboratory Pleural fluid - MAIN LAB Thoracentesis Fluid [address] [place] [address] * PLEURAL FLUID ALBUMIN (11/09/2017 10:36 AM) Component Value Ref Range Pleural Fluid Albumin 2.4Comment: Pleural fluid albumin gradient >1.2 g/ dL g/dL is suggestive of an exudate Specimen Performing Laboratory Pleural fluid - [facility] Thoracentesis Fluid [address] [place] [address] * GRAM STAIN (11/09/2017 10:36 AM) Component Value Ref Range Battery Name GRAM STAIN Specimen Description THORACENTESIS FLUID Special Requests NONE Gram Stain FEW NEUTROPHILS NO ORGANISMS SEEN Report Status FINAL 11/09/2017 Specimen Performing Laboratory Thoracentesis Fluid [facility] [address] [place] [address] * CULTURE-WOUND/TISSUE/FLUID(AEROBIC ONLY)W/SENSITIVITY (11/09/2017 10:36 AM) Component Value Ref Range Battery Name ROUTINE CULTURE Specimen Description THORACENTESIS FLUID Special Requests NONE Direct Gram Stain FEW NEUTROPHILS NO ORGANISMS SEEN Culture NO GROWTH 5 DAYS Report Status FINAL 11/14/2017 Specimen Performing Laboratory Pleural fluid - MAIN LAB Thoracentesis Fluid [address] [place] [address] * CULTURE-ANAEROBIC (11/09/2017 10:36 AM) Component Value Ref Range Battery Name ANAEROBE CULTURE Specimen Description THORACENTESIS FLUID Special Requests NONE Culture NO ANAEROBES ISOLATED Report Status FINAL 11/14/2017 Specimen Performing Laboratory Pleural fluid - [facility] Thoracentesis Fluid [address] [place] [id number] * CELL COUNT W/DIFF-FLUIDS (11/09/2017 10:36 AM) [...] fluid - MAIN LAB Thoracentesis Fluid [address] [place] [address] * STREPTOCOCCUS PNEUMO AG, URINE (11/09/2017 7:22 AM) Component Value Ref Range Battery Name STREP PNEUMO AG, UR Specimen Description URINE Special Requests NONE Antigen NEGATIVE Report Status FINAL 11/09/2017 Specimen Performing Laboratory Urine MAIN LAB [address] [place] [address] * LEGIONELLA ANTIGEN URINE,RAN (11/09/2017 7:22 AM) Component Value Ref Range Battery Name LEGIONELLA URINE ANTIGEN Specimen Description URINE Special Requests NONE Antigen NEGATIVE Report Status FINAL 11/09/2017 Specimen Performing Laboratory Urine MAIN LAB [address] [place] [address] * RVP VIRAL PANEL PCR (11/09/2017 3:05 [...] Specimen Performing Laboratory Nasopharyngeal Swab MAIN LAB [address] [place] [address] * TSH WITH FREE T4 REFLEX (11/09/2017 2:55 AM) Component Value Ref Range TSH 1.008 0.35 - 5.00 MCU/ML Specimen Performing Laboratory Blood MAIN LAB [address] [place] [address] * CULTURE-BLOOD W/SENSITIVITY (11/09/2017 2:55 AM) Only the most recent of 2 results within the time period is included. Component Value Ref Range Battery Name BLOOD CULTURE Specimen Description BLOOD RIGHT FA Special Requests NONE Culture NO GROWTH 5 DAYS Report Status FINAL 11/15/2017 Specimen Performing Laboratory Blood MAIN LAB [address] [place] [address] * TROPONIN-I (11/09/2017 2:55 AM) Component Value Ref Range Troponin-I 0.01 0.0 - 0.05 NG/ML Specimen Performing Laboratory Blood MAIN LAB [address] [place] [address] * BNP (B-TYPE NATRIURETIC PEPTI) (11/09/2017 2:55 AM) Component Value Ref Range B Type Natriuretic 28.0 0 - 100 PG/ML Peptide Specimen Performing Laboratory Blood [facility] MAIN [facility] [address] [place] [address] * GENERAL RAD CHEST EXTERNAL IMAGING (11/08/2017 5:05 PM) Narrative This order has been auto finalized and does not contain a result. * CT CHEST EXTERNAL IMAGING (11/08/2017) Narrative This order has been auto finalized and does not contain a result. from Last 3 Months
--- OUTSIDE RECORDS SUMMARY | 2018-01-04 13:05 | XMS REPORT | Encounter Summary ---
Author Author [facility] Organization [facility] Address Unknown Phone Unavailable Care Team Providers Care Splitting Machine Tender Name Role Phone Tad Campbell MD PCP Encounter Details Date Type Department Care Team Description 11/14/2017 Procedure Pass Gastrointenstinal Endoscopy [address] [place] [address] Social History Tobacco Use Types [...]
--- OUTSIDE RECORDS SUMMARY | 2018-01-04 13:05 | XMS REPORT | Encounter Summary ---
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 Encounter Details Date Type Department Care Team Description 11/09/[address] Israel Garcia DO Lung mass - Encounter [address] 11/17/2017 [place] [address] [place] [address] [phone] H Susana Cook MD [address] [place] [address] [phone] P Kenya murray MD [address] [place] [address] [phone] Kane Drake MD [address] [place] [address] [phone] Harley Kramer MD [address] [place] [address] [phone] Tani Mcclellan MD [address] [place] [address] [phone] S Angela carvalho MD [address] [place] [address] [phone] Social History Tobacco Use Types Packs/Day Years Used Date Never Smoker Smokeless Tobacco: Never Used Alcohol Use Drinks/Week oz/Week Comments No Sex Assigned at Date Recorded Not on file as of this encounter Last Filed Vital Signs Vital Sign Reading Time Taken Blood Pressure 142/75 11/17/2017 9:00 AM [facility] PAD Pulse 99 11/16/2017 8:00 PM [facility] PAD Temperature 36.8 C (98.2 F) 11/17/2017 9:00 AM [facility] PAD Respiratory Rate - - Oxygen Saturation 93% 11/17/2017 4:00 PM [facility]OULDER PAD Inhaled Oxygen - - Concentration Weight 90.4 kg (199 lb 4.7 oz) 11/14/2017 5:33 PM [facility]OULDER PAD Height 154.9 cm (5' 1") 11/09/2017 12:13 AM [facility]OULDER PAD Body Mass Index 37.66 11/14/2017 5:33 PM M[facility] SHOULDER PAD in this encounter Functional Status Functional Status Response Date of Assessment Does the patient have a hearing impairment: No 11/09/2017 as of this encounter Discharge Summaries * Amadou Encarnacion MD - 11/17/2017 2:07 PM [facility]ER PAD Formatting of this note may be different [...] chest with pleural effusion. She transferred to [facility] for CTS consultation. She [...] or concerns regarding your hospital stay. Call [phone] Discharging attending physician: ANGELA MONSON [[id number]] Regular Diet You have no dietary restriction. Please continue with a healthy balanced diet. Return Appointment - Appointment with Dr. Quintero scheduled for Sunday11/21/17 at 8:00am [facility] Address: [address] [place] [address] Current Discharge Medication List START taking these [...] partner) scheduled for Sunday at 8:00am [facility] [address] [place] [address] Pending items needing follow up: Signed: Amadou Encarnacion MD 11/17/2017 cc: Primary Care Physician: Tad Campbell Referring physicians: Self, Referral Additional provider(s): in this encounter Discharge Instructions * Discharge Instr - Appointments - Amadou Encarnacion MD - 11/17/2017 11:55 AM [facility] - Appointment with Dr. Quintero (Dr. Middleton's partner) scheduled for 11/21 at 8:00am [facility] [address] [place] [address] in this encounter Medications at Time of [...] Dayanara Harris, RN - 11/17/2017 2:40 PM MOLDER SHOULDER PAD 0700: Report received and care assumed. Bedside [...] Transport at bedside to take pt to [facility] via wheelchair with all belongings. 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 Workup: - Biopsy 10/26/17 in [place], [place] - [facility] [...] Dr. Ilya Encarnacion MD PGY1 Emergency Medicine 9479 Heather Jay is a 72 y.o. female. [...] Amadou Encarnacion MD PGY1 Emergency Medicine Pager [phone] Associated attestation - Angela Monson MD - [...] Debora Hernandez APRN - 11/16/2017 9:09 AM M[facility] SHOULDER PAD Med-Onc Quick Note: - Appointment with Dr. Quintero (Dr. Middleton's partner) scheduled for 11/21 at 8:00am - Awaiting pathology results from biopsy obtained on 11/15 for definitive treatment planning [facility] Address: [address] [place] [address] Jim Hernandez APRN [phone] * Tani Munson MD - 11/16/2017 5:55 AM MOL[facility] SHOULDER PAD Formatting of this note may be different [...] Suspect sarcoma. Workup: - Biopsy 10/26/17 in [place], [place] - path review of [facility] [...] Dr. Jeimy Encarnacion MD PGY1 Emergency Medicine 8822 ATTESTATION I personally performed the zapata portions [...] Amadou Encarnacion MD PGY1 Emergency Medicine Pager [phone] * Maegan Orr, RT - 11/15/2017 6:11 PM MOLDER SHOULDER PAD Formatting of this note may be different [...] Date: 11/15/2017 Zapata AC=Airway clearance AM=Aerosolized medication BA=[place] aerosol DB&C=Deep breathe & cough FEV1=Forced expiratory volume in first second) IC=Inspiratory capacity LE=Lung expansion I=Metered dose inhaler Neb=Nebulizer O2=Oxygen Oxim=Oximetry PEFR=Peak expiratory flow rate PREFORMER IMPREGNATED FABRICS=Rapid Response Team * Leonarda Watkins, RN - 11/15/2017 6:00 PM [facility]ER PAD 1800 Assumed care of pt from Cat Brendon RN. Assessment complete, vss. * Richa Olivas RN - 11/15/2017 5:40 PM MOLDER SHOULDER PAD 0730 - assumed care of patient, bedside safety check completed 0800 - assessment completed and documented per ICU flow sheet. Patient alert & oriented x4, follows commands, denies pain at this time. All VSS per patient trends, remains on 6L HFNC, will titrate as tolerated. Will continue to monitor. * Emilee Camargo MD - 11/15/2017 11:44 AM MOLDER SHOULDER PAD CTS Progress Note Case reviewed in multidisciplinary [...] Debora Hernandez APRN - 11/15/2017 7:19 AM MOLDER SHOULDER PAD Formatting of this note may be different [...] [pending outside consultation with [facility] block- report indicates suspicion [...] to pursue treatment closer to home, in [place], [place]. Patient already established with Dr. Middleton at [facility]. Will arrange ongoing follow up. Patient discussed [...] Diagnostics Review: Pertinent radiology reviewed. Debora Hernandez, B[employer] PLANT MANAGER [phone] * Tani Munson MD - 11/15/2017 6:51 AM MOLDER SHOULDER PAD Formatting of this note may be different [...] sarcoma. Workup: - S/p biopsy 10/26/17 in [place], [place] with path review of [facility] [...] Dr. Jeimy Encarnacion MD PGY1 Emergency Medicine 1816 ATTESTATION I personally performed the zapata portions [...] (Last 24 hours) Glucose: (!) 147 (11/15/17 5205) Radiology and other Diagnostics Review: Pertinent radiology reviewed. Amadou Encarnacion MD PGY1 Emergency Medicine Pager [phone] * Angela Del Castillo RN - 11/14/2017 7:49 PM MOLDER SHOULDER PAD 1930: Assumed care of patient. Bedside safety [...] Richa Olivas RN - 11/14/2017 6:36 PM MOLDER SHOULDER PAD 1730 - patient arrived to 63 from GI/Endo. Bedside safety check completed. Assessment completed and documented per ICU flow sheet. Patient alert & oriented x4, follows commands, denies pain at this time. Placed on HFNC, will titrate as tolerated. All other VSS per patient trends, will continue to monitor. * Elizabeth Navarrete RN - 11/14/2017 5:42 PM MOLDER SHOULDER PAD Patient arrived to room # (6314) via [...] Harley Niño MD - 11/14/2017 11:10 AM MOLDER SHOULDER PAD Formatting of this note may be different [...] presented to [facility] in [place], [place] with dyspnea and dry cough, found to have increased right-sided pleural effusion and atelectasis, transferred to [facility]. S/p thoracentesis 11/09 with improvement in dyspnea. Planning on obtaining more tissue for diagnosis based on recommendation of oncology. 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 Workup: - S/p biopsy 10/26/17 in [place], [place] with path review of [facility] [...] Harley Niño MD - 11/13/2017 4:22 PM MOLDER SHOULDER PAD Formatting of this note may be different [...] presented to [facility] in [place], [place] with dyspnea and dry cough, found to have increased right-sided pleural effusion and atelectasis, transferred to [facility]. S/p thoracentesis 11/09 with improvement in dyspnea. Planning on obtaining more tissue for diagnosis based on recommendation of oncology. 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 Workup: - S/p biopsy 10/26/17 in [place], [place] with path review of [facility] [...] Opal Arellano MD - 11/12/2017 10:09 PM [facility] SHOULDER PAD EUS on 11/12/2017 with the axial mass [...] Harley Niño MD - 11/12/2017 8:41 PM MOLDER SHOULDER PAD Formatting of this note may be different [...] presented to [facility] in [place], [place] with dyspnea and dry cough, found to have increased right-sided pleural effusion and atelectasis, transferred to [facility]. S/p thoracentesis 11/09 with improvement in dyspnea. Planning on obtaining more tissue for diagnosis, with EGD/EUS planned for tomorrow, 11/12. 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 Workup: - S/p biopsy 10/26/17 in [place] with path review of [facility] [...] Christiano Lassiter RN - 11/12/2017 3:05 PM MOLDER SHOULDER PAD 1705 - Pt. left 6411 to GI lab. * Debora Hernandez APRN - 11/12/2017 2:39 PM MOLDER SHOULDER PAD Formatting of this note may be different [...] [pending outside consultation with [facility] block- report indicates suspicion [...] Diagnostics Review: Pertinent radiology reviewed. Debora Hernandez, B[employer] PLANT MANAGER [phone] * Dianne Cazares, RT - 11/12/2017 10:20 AM MOLDER SHOULDER PAD Formatting of this note may be different [...] Date: 11/12/2017 Zapata AC=Airway clearance AM=Aerosolized medication BA=[place] aerosol DB&C=Deep breathe & cough FEV1=Forced expiratory volume in first second) IC=Inspiratory capacity LE=Lung expansion MDI=Metered dose inhaler Neb=Nebulizer O2=Oxygen Oxim=Oximetry PEFR=Peak expiratory flow rate PREFORMER IMPREGNATED FABRICS=Rapid Response Team * Kane Castellano MD - 11/11/2017 1:10 PM MOLDER SHOULDER PAD Formatting of this note may be different [...] presented to [facility] in [place], [place] with dyspnea and dry cough, found to have increased right-sided pleural effusion and atelectasis, transferred to [facility]. S/p thoracentesis 11/09 with improvement in dyspnea. Planning on obtaining more tissue for diagnosis, with EGD/EUS planned for tomorrow, 11/12. 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 Workup: - S/p biopsy 10/26/17 in [place] with path review of [facility] [...] Full code Hero Castellano MD Hospitalist Pager [phone] Heather Jay is a 72 y.o. female. [...] * Loretta Chaudhry - 11/10/2017 8:36 PM MOLDER SHOULDER PAD Med pvt paged regarding pt increased concern about rash under right breast and on chest. Rash is warm to touch and sensitive. Pt c/o constant burning sensation. Orders placed for nystatin topical cream. This RN routinely monitoring. * Montez Roger, AC - 11/10/2017 7:21 PM MOLDER SHOULDER PAD Patient called this RN into room to assess newly discovered rash under right breast. Rash is slightly warmer than surrounding skin upon assessment. Patient states rash is a slight burning sensation but not itching. Med Private paged. Order to continue to monitor. * Kane Castellano MD - 11/10/2017 12:37 PM MOLDER SHOULDER PAD Formatting of this note may be different [...] presented to [facility] in [place], [place] with dyspnea and dry cough,found to have increased right-sided pleural effusion and atelectasis. S/p thoracentesis 11/09 with improvement in dyspnea. Planning on CTS consult, obtaining more tissue for diagnosis/ EGD/EUS on Sunday. 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 Workup: - S/p biopsy 10/26/17 in [place] with path review of [facility] [...] Full code Hero Castellano MD Hospitalist Pager [phone] Heather Jay is a 72 y.o. female. [...] Federica Goff, PT - 11/09/2017 2:40 PM M[facility] SHOULDER PAD PHYSICAL THERAPY NOTE Per discussion with RN [...] * Miri Thao - 11/09/2017 1:39 PM MOLDER SHOULDER PAD OCCUPATIONAL THERAPY NO TREATMENT NOTE Patient denies [...] * Marisa Bush - 11/09/2017 11:24 AM MOLDER SHOULDER PAD Pt left IR in bed with Mozes personal. * Yasemin Barlow RN - 11/09/2017 11:07 AM MOLDER SHOULDER PAD Report called to AC Graves No questions and concerns. Immediate chest xray read by Dr. Hyatt. Pt. Cleared to go back to home unit. * Reid Castillo RN - 11/09/2017 9:42 AM MOLDER SHOULDER PAD Vital signs q 15 minutes x 4 [...] Faviola Serrato RN - 11/09/2017 3:44 AM MOLDER SHOULDER PAD Paged regarding a 2.15 second pause. Patient is asymptomatic at this time. Dr. Owen returned page will order an EKG. * Faviola Serrato RN - 11/09/2017 12:59 AM MOLDER SHOULDER PAD Patient arrived to room # (6376) via cart accompanied by EMS. Patient transferred [...] Jayson Lange MD - 11/14/2017 5:40 PM MOLDER SHOULDER PAD Formatting of this note may be different [...] presented to [facility] in [place], [place] with dyspnea and dry cough, found to have increased right-sided pleural effusion and atelectasis, transferred to [facility]. S/p thoracentesis 11/09 with improvement in dyspnea. Planning on obtaining more tissue for diagnosis, with EGD/EUS planned for 11/12. 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 Workup: - S/p biopsy 10/26/17 in [place], [place] with path review of [facility] [...] Dr. Erik Encarnacion MD PGY1 Emergency Medicine 1097 ICU Attending Note Jonathon Jay Is critically [...] Amadou Encarnacion MD PGY1 Emergency Medicine Pager [phone] * Kaushik Gutierrez MD - 11/14/2017 3:34 PM MOLDER SHOULDER PAD Formatting of this note may be different [...] Relevant labs reviewed Kaushik Gutierrez MD Pager [phone] * Pantera Ortiz, B[employer]S PLANT MANAGER-PROPULSION MOTOR AND GENERATOR REPAIRER - 11/09/2017 9:48 AM MOLDER SHOULDER PAD Formatting of this note may be different [...] Tests: Labs: Pertinent labs reviewed Pantera Ortiz APRN-PROPULSION MOTOR AND GENERATOR REPAIRER Pager [phone] * Kenya Ramey MD - 11/09/2017 2:23 AM MOLDER SHOULDER PAD Formatting of this note may be different [...] cell neoplasm [ pending outside consultation with [facility]]. Patient presented to [facility] in [place], [place] for shortness of breath and dry [...] cell neoplasm [ pending outside consultation with [facility]]. Patient presented to [facility] in [place], [place] for shortness of breath and dry cough. Dyspnea has been ongoing for the last month or so but got worse after the biopsy on 10/26. Patient denies having phlegm, hemoptysis, or chest pain. She was found to have increased right-sided pleural effusion on CT chest without contrast. Her saturation was 88% on room air. She was transferred to [facility] for CTS consultation. Patient states that she has extensive family history of cancer: her father had colon, lung and liver cancer, and her mother had leukemia. She never smoked cigarettes. 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 She lives by herself, and is able to take care of herself. Her kids live near her, in the area of [place]. Past Medical History: Diagnosis Date HTN (hypertension) [...] reviewed. Susana Woo MD Internal Medicine Pager [phone] in this encounter Consult Notes * Charline Alves DO - 11/13/2017 11:08 AM MOLDER SHOULDER PAD Associated Order(s): CONSULT PULMONARY/CRITICAL CARE PHYSICIAN Formatting [...] cough to [facility] in [place], [place]. She was found to have a [...] breath so presented to the ED in [place], [place] and then was transferred here. She [...] Elizabeth Alves DO Pulmonary/Critical Care Pager # [phone] 11/13/2017 Associated attestation - Akash Winn MD - 11/13/2017 10:54 PM MOLDER SHOULDER PAD Formatting of this note may be different [...] Emilee Camargo MD - 11/10/2017 4:00 PM MOLDER SHOULDER PAD Associated Order(s): CONSULT CARDIOTHORACIC SURGERY PHYSICIAN Formatting of this note may be different from the original. CTS CONSULT Date of Service: 11/10/2017 Requesting Physician: Kenya Ramey MD Consulting Physician: Leyla Lopez MD Consult Performed By: Emilee Camargo MD HPI: Mrs. Jay is a 72 y/o F who presented to [facility] in [place], [place], for shortness of breath and a nonproductive cough. 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 She was transferred to [facility] for further workup. She [...] Leyla Lopez MD - 11/11/2017 8:53 AM MOLDER SHOULDER PAD Formatting of this note may be different from the original. ATTESTATION I personally performed the zapata portions of the E/M visit, discussed case with resident and concur with resident documentation of history, physical exam, assessment, and treatment plan unless otherwise noted. Staff name: Leyla Lopez MD Date: 11/11/2017 * Bette Kurtz MD - 11/09/2017 10:37 AM MOLDER SHOULDER PAD Associated Order(s): CONSULT GASTROENTEROLOGY PHYSICIAN Formatting of [...] (pending final pathology work-up), was transferred from [place], [place] to [facility] for worsening shortness of [...] (pending final pathology work-up), was transferred from [place], [place] to [facility] for worsening shortness of [...] Arellano MD Gastroenterology & Hepatology Fellow Pager [phone] * Debora Hernandez APRN - 11/09/2017 7:33 AM MOLDER SHOULDER PAD Associated Order(s): CONSULT ONCOLOGY PHYSICIAN Formatting of [...] [pending outside consultation with [facility] block- report indicates suspicion [...] 72 y.o. female admitted in transfer from [place], [place] for CTS evaluation. Patient has newly [...] FINAL 11/09/2017 Pertinent radiology reviewed. Debora Hernandez, [facility] [phone] Associated attestation - Alvin Fink MD - 11/09/2017 5:29 PM MOLDER SHOULDER PAD Attestation by Dr. Fink: I saw this patient with Debora Hernandez BIOFUELS PLANT MANAGER , I confirmed her history with the [...] and therapeutic thoracentesis. Outside path review from [facility] arrived this pm - [...] - Alli Edwinros - 11/16/2017 9:48 AM MOLDER SHOULDER PAD Case Management Progress Note NAME:Jonathon Jay : [...] ? Medication Needs ? Financial Medicare and [employer] [place] ? Legal Legal: DPOA & Advance Directives [...] No ? Discharge Disposition Jeny Carson LMSW [phone] (phone) [phone] (pager) * Case Mgmt DC Plan - Lisa Jurado RN - 11/16/2017 9:11 AM MOLDER SHOULDER PAD Formatting of this note may be different from the original. Case Management Progress Note NAME:Jonathon Jay : AGE: 72 y.o. ADMISSION DATE: 11/09/2017 DAYS ADMITTED: LOS: 7 days Todays Date: 11/16/2017 Plan Discharge planning Interventions ? Support Support: Pt/Family Updates re:POC or DC Plan ? Info or Referral Patient has her CPAP through [facility] in [place]. [phone] Fax No oxygen DISTRIBUTOR CLEANER. ? Discharge Planning Spoke with patient Patient [...] Disposition Latrell Jurado RN MSN ONC Nurse Hvac Project Manager Pg [phone] Durable Medical Equipment No service has been selected for the patient. [facility] Destination No service has been selected for the patient. Home Care No service has been selected for the patient. Dialysis/Infusion No service has been selected for the patient. * Anesthesia Post Op Day 1 - Amadou Beard DO - 11/15/2017 7:38 AM MOLDER SHOULDER PAD Formatting of this note may be different [...] - Shyanne Gonzalez - 11/14/2017 1:16 PM MOLDER SHOULDER PAD Formatting of this note may be different [...] been selected for the patient. Shyanne Gonzalez, [facility] *[id number] * Anesthesia Post Op Day 1 - Amadou Beard DO - 11/13/2017 7:50 AM MOLDER SHOULDER PAD Formatting of this note may be different [...] Ely Mclaughlin RN - 11/11/2017 5:15 PM MOLDER SHOULDER PAD Problem: Discharge Planning Goal: Participation in plan of care Outcome: Goal Ongoing Pt updated on plan of care. No plans to d/c at this time. Problem: Respiratory Impairment (Non-Ventilated Patient) Goal: Effective gas exchange Outcome: Goal Ongoing Pt on 2L NC. * Case Mgmt DC Plan - Shyanne Gonzalez - 11/09/2017 3:27 PM MOLDER SHOULDER PAD Case Management Admission Assessment NAME:Jonathon Jay : [...] spindle cell neoplasm [pending outside consultation with [facility]]. Patient presented to [facility] in [place], [place] for shortness of breath and dry cough, she was found to have increased right-sided pleural effusion and atelectasis on CT chest without contrast." Patient Address/Phone [address] [address] (home) Emergency Contact Extended Emergency Contact Information Primary Emergency Contact: Becky Griffiths Address: [address] Mobile Relation: Daughter Preferred language: [place] Healthcare Directive Pt does not have a [...] Primary Insurance: Medicare Secondary Insurance: Commercial insurance ([facility]) Additional Coverage: RX ([employer] [...] ? PCP Tad Campbell, , ? Pharmacy [facility] [address] [place] [phone] ? Durable Medical Equipment Durable Medical Equipment [...] ? Outpatient Therapy PT: No OT: No IMMIGRATION MANAGER: No ? [facility] Facility/Residential SNF: No NH: No ? Inpatient Rehab IPR: No ? [facility] LTACH: No ? Acute Hospital Stay Acute Hospital Stay: In the past Shyanne Gonzalez [facility] *[id number] * Procedures (Immed Post or Bedside) - Amadou Zeng MD - 11/09/2017 10:38 AM MOLDER SHOULDER PAD Procedure Note Procedures Immediate Post Procedure Note [...] Faviola Serrato RN - 11/09/2017 5:22 AM MOLDER SHOULDER PAD Problem: Discharge Planning Goal: Participation in plan [...] WITH 11/14/2017 Lung mass ULTRASOUND 1:30 PM MOLDER SHOULDER PAD CONSULT IV THERAPY TEAM STAT 11/14/2017 12:18 PM MOLDER SHOULDER PAD ESOPHAGOGASTRODUODENOSCOP 11/12/2017 Mediastinal mass Y ENDOSCOPIC ULTRASOUND 5:57 PM MOLDER SHOULDER PAD CONSULT IV THERAPY TEAM Routine 11/12/2017 9:26 AM MOLDER SHOULDER PAD CONSULT IV THERAPY TEAM STAT 11/09/2017 5:01 AM MOLDER SHOULDER PAD in this encounter Results * PROCEDURE RECORD-SCAN [...] Specimen Performing Laboratory Blood MAIN LAB [address] [place] [address] * PHOSPHORUS (11/17/2017 3:35 AM) Component Value Ref Range Phosphorus 3.9 2.0 - 4.0 MG/DL Specimen Performing Laboratory Blood [facility] [address] [place] [address] * MAGNESIUM (11/17/2017 3:35 AM) Component Value Ref Range Magnesium 2.0 1.6 - 2.6 mg/dL Specimen Performing Laboratory Blood MAIN LAB [address] [place] [address] * CBC AND DIFF (11/17/2017 3:35 AM) [...] Specimen Performing Laboratory Blood MAIN LAB [address] [place] [id number] * COMPREHENSIVE METABOLIC PANEL (11/16/2017 5:34 AM) [...] questions. Specimen Performing Laboratory Blood MAIN LAB [address] [place] [address] * PHOSPHORUS (11/16/2017 5:34 AM) Component Value Ref Range Phosphorus 3.8 2.0 - 4.0 MG/DL Specimen Performing Laboratory Blood MAIN LAB [address] [place] [address] * MAGNESIUM (11/16/2017 5:34 AM) Component Value Ref Range Magnesium 2.1 1.6 - 2.6 mg/dL Specimen Performing Laboratory Blood MAIN LAB [address] [place] [address] * CBC AND DIFF (11/16/2017 5:34 AM) [...] K/UL Specimen Performing Laboratory Blood MAIN LAB [address] [address] [place], [place] [id number] * COMPREHENSIVE METABOLIC PANEL (11/15/2017 2:35 AM) [...] questions. Specimen Performing Laboratory Blood MAIN LAB [address] [place] [address] * PHOSPHORUS (11/15/2017 2:35 AM) Component Value Ref Range Phosphorus 5.0 (H) 2.0 - 4.0 MG/DL Specimen Performing Laboratory Blood MAIN LAB [address] [place] [address] * MAGNESIUM (11/15/2017 2:35 AM) Component Value Ref Range Magnesium 2.2 1.6 - 2.6 mg/dL Specimen Performing Laboratory Blood MAIN LAB [address] [place] [address] * CBC AND DIFF (11/15/2017 2:35 AM) [...] Specimen Performing Laboratory Blood MAIN LAB [address] [place] [address] * CBC AND DIFF (11/14/2017 6:12 PM) [...] Specimen Performing Laboratory Blood MAIN LAB [address] [place] [address] * COMPREHENSIVE METABOLIC PANEL (11/14/2017 6:12 PM) [...] questions. Specimen Performing Laboratory Blood MAIN LAB [address] [place] [address] * MAGNESIUM (11/14/2017 6:12 PM) Component Value Ref Range Magnesium 2.1 1.6 - 2.6 mg/dL Specimen Performing Laboratory Blood MAIN LAB [address] [place], [place] [id number] * PHOSPHORUS (11/14/2017 6:12 PM) Component Value Ref Range Phosphorus 4.5 (H) 2.0 - 4.0 MG/DL Specimen Performing Laboratory Blood MAIN LAB [address] [place] [address] * PTT (APTT) (11/14/2017 6:12 PM) Component Value Ref Range APTT 27.7 21.0 - 39.0 SEC Specimen Performing Laboratory Blood MAIN LAB [address] [place], [place] [id number] * PROTIME INR (PT) (11/14/2017 6:12 PM) Component Value Ref Range INR 1.2 0.8 - 1.2 Specimen Performing Laboratory Blood MAIN LAB [address] [place] [address] * BRONCHOSCOPY (11/14/2017 2:52 PM) Component Value Ref Range Provation Report Patient Name: Jonathon Jay Procedure Date: 11/14/2017 2:52 PM CSN: [id number] Date of : 1945 Gender: Female Attending Physician: Kaushik Gutierrez MD Procedure:Bronchoscopy Indications:Mediastinal mass Providers:Kaushik Gutierrez MD (Doctor), Ting Stafford RN (Nurse), Gloria Day RN (Nurse), Oscar No, Calciminer (Techn ician) Referring Physician:Leyla Lopez Medications:Tetricaine 0.25%/Epinephrine [...] NEG Specimen Performing Laboratory Blood MAIN LAB [address] [place] [address] * PROTIME INR (PT) (11/14/2017 12:30 PM) Component Value Ref Range INR 1.2 0.8 - 1.2 Specimen Performing Laboratory Blood MAIN LAB [address] [place] [address] * FINE NEEDLE ASPIRATE (FNA) (11/14/2017 9:04 AM) Component Value Ref Range Cytology [email or web address] Department of Pathology and Laboratory Medicine [address] [place] [address] Surgical Pathology Office:[phone]:[phone] CYTOLOGY REPORT NAME: JONATHON JAY SURG PATH #: [id number] MR #: [id number] ALT ID #: BILLING #: [id number] LOCATION: 63 DATE OF PROCEDURE: 11/14/2017 AGE:72 SEX: F DATE RECEIVED: 11/15/2017 : 1945TIME RECEIVED:09:04 PHYSICIAN: KAUSHIK GUTIERREZ [facility] DATE OF REPORT: 11/16/2017 COPY TO: KENYA RAMEY MD BRICE J ZOGLEMAN, MD CROSSER, MICHAEL [facility] DATE OF PRINTIN11/16/2017 Material Received: A: FNA Lung-Right Mainstem History: 72 year old female, history of large mediastinal mass. Gross Description: ( 4 DQ direct smear, 4 Pap direct smear, 1 cell block) Rapid determination of adequacy was performed by the barker operator, TANNER, on Diff-Quik stained slide(s). Pass one, two and three not adequate for evaluation.Pass four adequate for evaluation.Pass five, six, and seven into RPMI. ################################################## ###################### Final Diagnosis: A. 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 See comment. Please also see concurrent cytology report ([id number]). Comment: Extensive crush artifact is present. Immunohistochemical stains for figueredo-cytokeratin, CAM5.2, CD34, desmin, TTF-1, PAX-8, SOX-10, calretinin, and Ki-67 performed on the cell block are non-contributory due to a lack of lesional tissue. A biopsy/more extensive sampling is recommended for a definitive diagnosis. Pursuant to the Sports Equipment Rep[employer]r Program at the [facility] Pathology [...] Performing Laboratory Blood KU MAIN LAB [address] [place] [address] * CBC AND DIFF (11/14/2017 5:34 AM) [...] Performing Laboratory Blood KU MAIN LAB [address] [place] [address] * CHEST 2 VIEWS (11/13/2017 7:00 AM) [...] Interface, Radiant Results - 11/13/2017 12:02 PM MOLDER SHOULDER PAD Procedure: CHEST 2 VIEWS Clinical Indication: Cough. [...] Performing Laboratory Blood KU MAIN LAB [address] [place] [address] * CBC AND DIFF (11/13/2017 6:02 AM) [...] Performing Laboratory Blood KU MAIN LAB [address] [place] [address] * ENDOSCOPIC ULTRASOUND REPORT (11/12/2017 6:12 PM) Component Value Ref Range Provation Report Patient Name: Pierre Garner Procedure Date: 11/12/2017 6:12 PM CSN: [id number] Date of : 1945 Gender: Female Attending Physician: Michael Wade MD Procedure: Upper EUS Indications:Gorman spected mass in mediastinum on chest CT Providers: Michael Wade MD (Doctor), Truong Burrell MD (Fellow), Miri Hairston (Nurse), Randi Levin Calciminer (Calciminer) Referring Physician:Referral Self Medications:Mo nitored Anesthesia Care [...] minutes 23 seconds Procedure Code(s):--- Professional --- 73845, Esophagogastroduodenoscopy, flexible, transoral; with endoscopic ultrasound examination, including the esophagus, stomach, and either the duodenum or a surgically altered stomach where the jejunum is examined distal to the anastomosis Diagnosis Code(s):--- Professional --- J98.59, Other diseases of mediastinum, not elsewhere classified R93.8, Abnormal findings on diagnostic imaging of other specified body structures CPT copyright 2016 [employer]. All rights reserved. The codes documented in this report are preliminary and upon bar host/hostess review may be revised to meet current [...] Performing Laboratory Blood KU MAIN LAB [address] [place] [address] * CBC AND DIFF (11/12/2017 5:14 AM) [...] Performing Laboratory Blood KU MAIN LAB [address] [place] [address] * COMPREHENSIVE METABOLIC PANEL (11/11/2017 5:33 AM) [...] Specimen Performing Laboratory Blood MAIN LAB [address] [place] [id number] * CBC AND DIFF (11/11/2017 5:33 AM) [...] Specimen Performing Laboratory Blood MAIN LAB [address] [place] [address] * COMPREHENSIVE METABOLIC PANEL (11/10/2017 4:36 AM) [...] Specimen Performing Laboratory Blood MAIN LAB [address] [place] [address] * CBC AND DIFF (11/10/2017 4:36 AM) [...] Specimen Performing Laboratory Blood MAIN LAB [address] [place] [address] * NON-PROPERTY SUPERVISOR CYTOLOGY (BODY FLUIDS/TISSUE) (11/09/2017 2:22 PM) Component Value Ref Range Cytology [facility] [email or web address] Department of Pathology and Laboratory Medicine [address] [place] [address] Surgical Pathology Office:[phone]:[phone] CYTOLOGY REPORT NAME: JONATHON JAY CYTOLOGY #: [id number] MR #: [id number] ALT ID #: BILLING #: [id number] LOCATION: 63 DATE OF PROCEDURE: 11/09/2017 AGE:72 SEX: F [...] expressed in this report Finalized by Navdeep Yap, M.D. on 11/09/2017 5:38 PM. Dictated by [...] Interface, Radiant Results - 11/09/2017 5:41 PM MOLDER SHOULDER PAD PET/CT NECK, CHEST, ABDOMEN AND PELVIS CLINICAL [...] effusion MEDICATIONS: 5 mL subcutaneous 2% lidocaine CAMPUS COORDINATOR: Amadou Kaur M.D., M.D. The risks, benefits, [...] Interface, Radiant Results - 11/12/2017 10:39 AM MOLDER SHOULDER PAD Ultrasound-guided Thoracentesis CLINICAL INDICATION: Symptomatic pleural effusion MEDICATIONS: 5 mL subcutaneous 2% lidocaine CAMPUS COORDINATOR: Amadou Kaur M.D., M.D. The risks, benefits, [...] Interface, Radiant Results - 11/09/2017 12:28 PM MOLDER SHOULDER PAD Chest, single view with inspiration and expiration [...] pleural effusion. No appreciable pneumothorax. Finalized by ALSISON FORD M.D. on 11/09/2017 12:24 PM. Dictated [...] Interface, Radiant Results - 11/09/2017 5:47 PM MOLDER SHOULDER PAD CHEST IMMEDIATE POST PROCEDURE INSP/EXP Clinical Indication: [...] Performing Laboratory Thoracentesis Fluid MAIN LAB [address] [place] [address] * PLEURAL FLUID TOTAL PROTEIN (11/09/2017 10:36 AM) Component Value Ref Range Pleural Fluid Total 3.6 (H)Comment: Serum to pleural fluid protein <1.1 g/ dL Protein gradient >3.1 g/dL is suggestive of an exudate Specimen Performing Laboratory Pleural fluid - [facility] LAB Thoracentesis Fluid [address] [place] [address] * PLEURAL FLUID PH (11/09/2017 10:36 AM) Component Value Ref Range Pleural Fluid Ph 7.45 (L) 7.60 - 7.66 Specimen Performing Laboratory Pleural fluid - [facility] LAB Thoracentesis Fluid [address] [place] [address] * PLEURAL FLUID LACTATE DEHYDROGENASE (11/09/2017 10:36 AM) Component Value Ref Range Pleural Fluid Lactate 398 (H)Comment: Higher levels suggestive of 67 - 140 U/L Dehydrogenase exudate Specimen Performing Laboratory Pleural fluid - [facility] LAB Thoracentesis Fluid [address] [place] [address] * PLEURAL FLUID GLUCOSE (11/09/2017 10:36 AM) Component Value Ref Range Pleural Fluid Glucose 102 (H) 70 - 100 mg/dL Comment: Glucose <60 mg/dL associated withparapneumonic effusion, tuberculosis, malignancy, empyema, and rheumatoid disease Specimen Performing Laboratory Pleural fluid - [facility] LAB Thoracentesis Fluid [address] [place] [address] * PLEURAL FLUID ALBUMIN (11/09/2017 10:36 AM) Component Value Ref Range Pleural Fluid Albumin 2.4Comment: Pleural fluid albumin gradient >1.2 g/ dL g/dL is suggestive of an exudate Specimen Performing Laboratory Pleural fluid - [facility] LAB Thoracentesis Fluid [address] [place] [address] * CULTURE-WOUND/TISSUE/FLUID(AEROBIC ONLY)W/SENSITIVITY (11/09/2017 10:36 AM) Component Value Ref Range Battery Name ROUTINE CULTURE Specimen Description THORACENTESIS FLUID Special Requests NONE Direct Gram Stain FEW NEUTROPHILS NO ORGANISMS SEEN Culture NO GROWTH 5 DAYS Report Status FINAL 11/14/2017 Specimen Performing Laboratory Pleural fluid [facility] LAB Thoracentesis Fluid [address] [place] [address] * CULTURE-ANAEROBIC (11/09/2017 10:36 AM) Component Value Ref Range Battery Name ANAEROBE CULTURE Specimen Description THORACENTESIS FLUID Special Requests NONE Culture NO ANAEROBES ISOLATED Report Status FINAL 11/14/2017 Specimen Performing Laboratory Pleural fluid - [facility] LAB Thoracentesis Fluid [address] [place] [address] * CELL COUNT W/DIFF-FLUIDS (11/09/2017 10:36 AM) [...] report. Specimen Performing Laboratory Pleural fluid - [facility] LAB Thoracentesis Fluid [address] [place] [address] * LEGIONELLA ANTIGEN URINE,RAN (11/09/2017 7:22 AM) Component Value Ref Range Battery Name LEGIONELLA URINE ANTIGEN Specimen Description URINE Special Requests NONE Antigen NEGATIVE Report Status FINAL 11/09/2017 Specimen Performing Laboratory Urine [facility] [address] [place] [address] * STREPTOCOCCUS PNEUMO AG, URINE (11/09/2017 7:22 AM) Component Value Ref Range Battery Name STREP PNEUMO AG, UR Specimen Description URINE Special Requests NONE Antigen NEGATIVE Report Status FINAL 11/09/2017 Specimen Performing Laboratory Urine [facility] LAB [address] [place] [address] * RVP VIRAL PANEL PCR (11/09/2017 3:05 [...] NOT DETECTED Specimen Performing Laboratory Nasopharyngeal Swab [facility] [address] [place] [address] * BNP (B-TYPE NATRIURETIC PEPTI) (11/09/2017 2:55 AM) Component Value Ref Range B Type Natriuretic 28.0 0 - 100 PG/ML Peptide Specimen Performing Laboratory Blood MAIN LAB [address] [place] [address] * CULTURE-BLOOD W/SENSITIVITY (11/09/2017 2:55 AM) Component Value Ref Range Battery Name BLOOD CULTURE Specimen Description BLOOD RIGHT FA Special Requests NONE Culture NO GROWTH 5 DAYS Report Status FINAL 11/15/2017 Specimen Performing Laboratory Blood MAIN LAB [address] [place], [place] [id number] * CULTURE-BLOOD W/SENSITIVITY (11/09/2017 2:55 AM) Component Value Ref Range Battery Name BLOOD CULTURE Specimen Description BLOOD LEFT ANTECUBITAL Special Requests NONE Culture NO GROWTH 5 DAYS Report Status FINAL 11/15/2017 Specimen Performing Laboratory Blood MAIN LAB [address] [place] [address] * TSH WITH FREE T4 REFLEX (11/09/2017 2:55 AM) Component Value Ref Range TSH 1.008 0.35 - 5.00 MCU/ML Specimen Performing Laboratory Blood MAIN LAB [address] [place] [address] * TROPONIN-I (11/09/2017 2:55 AM) Component Value Ref Range Troponin-I 0.01 0.0 - 0.05 NG/ML Specimen Performing Laboratory Blood MAIN LAB [address] [place] [address] * COMPREHENSIVE METABOLIC PANEL (11/09/2017 2:55 AM) [...] Performing Laboratory Blood KU MAIN LAB [address] [place] [address] * PROTIME INR (PT) (11/09/2017 2:55 AM) Component Value Ref Range INR 1.1 0.8 - 1.2 Specimen Performing Laboratory Blood KU MAIN LAB [address] [place] [address] * CBC AND DIFF (11/09/2017 2:55 AM) [...] Specimen Performing Laboratory Blood MAIN LAB [address] [place] [address] * GENERAL RAD CHEST EXTERNAL IMAGING (11/08/2017 [...] mg, Oral, EVERY 6 HOURS PRN, 06:23 MOLDER SHOULDER PAD Starting Sun11/09/17 at 0218, Until 11/17/17 at 1909, Pain non-opioid: may be used alone or in combination with opioid analgesia, TOTAL ACETAMINOPHEN DOSE NOT TO EXCEED 4GM DAILY Given 11/13/2017 650 mg 12:33 MOLDER SHOULDER PAD Given 11/13/2017 650 mg 20:01 MOLDER SHOULDER PAD cyclobenzaprine (FLEXERIL) tablet 5 mg Given 11/12/2017 5 mg 5 mg, Oral, ONCE, 1 dose, 11/12/17 at 21:19 MOLDER SHOULDER PAD 2115 cyclobenzaprine (FLEXERIL) tablet 5 mg Given 11/13/2017 5 mg 5 mg, Oral, THREE TIMES DAILY PRN, 20:00 MOLDER SHOULDER PAD Starting Tu11/13/17 at 1020, Until Sun11/14/17 at 1735, Muscle Cramps, Spasms Given 11/14/2017 5 mg 08:03 MOLDER SHOULDER PAD Given 11/14/2017 5 mg 12:24 MOLDER SHOULDER PAD docusate (COLACE) capsule 100 mg Given 11/09/2017 100 mg 100 mg, Oral, DAILY, First dose on Sun 08:52 MOLDER SHOULDER PAD 11/09/17 at 0900, Until Discontinued, Hold for loose stools. enalapril (VASOTEC) tablet 10 mg Given 11/12/2017 10 mg 10 mg, Oral, DAILY, First dose on Sun 09:18 MOLDER SHOULDER PAD 11/09/17 at 0900, Until Discontinued Given 11/13/2017 10 mg 09:04 MOLDER SHOULDER PAD Given 11/14/2017 10 mg 08:03 MOLDER SHOULDER PAD enalapril (VASOTEC) tablet 10 mg Given 11/16/2017 10 mg 10 mg, Oral, DAILY, First dose on Sun 08:01 MOLDER SHOULDER PAD 11/16/17 at 0900, Until Discontinued Given 11/17/2017 10 mg 08:55 MOLDER SHOULDER PAD enoxaparin (LOVENOX) syringe 40 mg Given 11/10/2017 40 mg Arm, Right 40 mg, Subcutaneous, DAILY, First dose 20:29 MOLDER SHOULDER PAD on 11/10/17 at 2100, Until Discontinued, For patients undergoing surgery: Consult physician in advance -- enoxaparin is an anticoagulant and may need to be held for 12hr prior to surgery or invasive procedures. NOTE: This is a HIGH ALERT Medication. fentaNYL citrate PF (SUBLIMAZE) Given 11/09/2017 50 mcg injection 50 mcg 11:03 MOLDER SHOULDER PAD 50 mcg, Intravenous, ONCE, 1 dose, Sun11/09/17 at 1100 hydroCHLOROthiazide (HYDRODIURIL) tablet Given 11/11/2017 12.5 mg 12.5 mg 08:17 MOLDER SHOULDER PAD 12.5 mg, Oral, EVERY MORNING, First dose on Sun11/09/17 at 0900, Until Discontinued Given 11/12/2017 12.5 mg 09:18 MOLDER SHOULDER PAD Given 11/13/2017 12.5 mg 09:04 MOLDER SHOULDER PAD hydroCHLOROthiazide (HYDRODIURIL) tablet Given 11/16/2017 12.5 mg 12.5 mg 08:01 MOLDER SHOULDER PAD 12.5 mg, Oral, DAILY, First dose on Sun11/16/17 at 0900, Until Discontinued Given 11/17/2017 12.5 mg 08:55 MOLDER SHOULDER PAD lactated ringers infusion Given - New 11/14/2017 1,000 mL 20 mL/hr 1,000 mL, 1,000 mL, Intravenous, at 20 Bag 13:30 MOLDER SHOULDER PAD mL/hr, ONCE, 1 dose, Sun11/14/17 at 1330, GI Procedure Area Only levofloxacin (LEVAQUIN) 750 mg/150 mL Given - New 11/09/2017 750 mg IVPB Bag 03:52 MOLDER SHOULDER PAD 750 mg, 150 mL, Administer over 90 Minutes, Intravenous, EVERY 24 HOURS, First dose on Sun11/09/17 at 0330, Until Discontinued Given - New Bag 11/10/2017 750 mg 03:04 MOLDER SHOULDER PAD levothyroxine (SYNTHROID) tablet 137 mcg Given 11/15/2017 137 mcg 137 mcg, Oral, DAILY 30MIN BEFORE 08:18 MOLDER SHOULDER PAD BREAKFAST, First dose on Sun11/09/17 at 0630, Until Discontinued, Give 1 hour before a meal. If patient is receiving tube feedings, hold tube feed 1hr before and 1hr after dose. Given 11/16/2017 137 mcg 07:52 MOLDER SHOULDER PAD Given 11/17/2017 137 mcg 06:13 MOLDER SHOULDER PAD nystatin (MYCOSTATIN) topical cream Given 11/10/2017 Topical, TWICE DAILY PRN, Starting Sat 21:26 MOLDER SHOULDER PAD 11/10/17 at 2055, Until 11/17/17 at 1909, Rash, Right Breast Given 11/13/2017 20:02 MOLDER SHOULDER PAD Given 11/13/2017 20:04 MOLDER SHOULDER PAD RP DX F-18 FDG injection 15 millicurie Given 11/09/2017 16.5 15 millicurie, Intravenous, ONCE, 1 11:30 MOLDER SHOULDER PAD millicuries dose, 11/09/17 at 1130 tetracaine 2% in chlorobutanol 0.4% Given 11/12/2017 15 mL solution 15 mL 18:06 MOLDER SHOULDER PAD 15 mL, Oral, ONCE, 1 dose, 11/12/17 at 1815, GI Procedure Area Only triamcinolone acetonide (KENALOG) 0.1 % Given 11/15/2017 topical ointment 20:18 MOLDER SHOULDER PAD Topical, TWICE DAILY, First dose on 11/11/17 at 1100, Until Discontinued, Apply to right chest Given 11/16/2017 10:00 MOLDER SHOULDER PAD Given 11/17/2017 06:13 MOLDER SHOULDER PAD verapamil SR (CALAN-SR) tablet 240 mg Given 11/12/2017 240 mg 240 mg, Oral, DAILY, First dose on Sun 09:18 MOLDER SHOULDER PAD 11/09/17 at 0900, Until Discontinued Given 11/13/2017 240 mg 09:04 MOLDER SHOULDER PAD Given 11/14/2017 240 mg 08:03 MOLDER SHOULDER PAD in this encounter
--- OUTSIDE RECORDS SUMMARY | 2018-01-04 13:07 | XMS REPORT | Encounter Summary ---
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 mass Encounter Details Date Type Department Care Team Description 11/14/2017 Surgery Gastrointenstinal Kaushik Gutierrez MD BRONCHOSCOPY WITH Endoscopy [address] ULTRASOUND [address] [place] [address] [place] [address] [phone] Social History Tobacco Use Types Packs/Day Years Used Date Never Smoker Smokeless Tobacco: Never Used Alcohol Use Drinks/Week oz/Week Comments No Sex Assigned at Date Recorded Not on file as of this encounter Last Filed Vital Signs Vital Sign Reading Time Taken Blood Pressure 142/75 11/17/2017 9:00 AM MAINFRAME SYSTEMS ADMINISTRATOR Pulse 99 11/16/2017 8:00 PM MAINFRAME SYSTEMS ADMINISTRATOR Temperature 36.8 C (98.2 F) 11/17/2017 9:00 AM MAINFRAME SYSTEMS ADMINISTRATOR Respiratory Rate - - Oxygen Saturation 93% 11/17/2017 4:00 PM MAINFRAME SYSTEMS ADMINISTRATOR Inhaled Oxygen - - Concentration Weight 90.4 kg (199 lb 4.7 oz) 11/14/2017 5:33 PM MAINFRAME SYSTEMS ADMINISTRATOR Height 154.9 cm (5' 1") 11/09/2017 12:13 AM MAINFRAME SYSTEMS ADMINISTRATOR Body Mass Index 37.66 11/14/2017 5:33 PM MAINFRAME SYSTEMS ADMINISTRATOR in this encounter Functional Status Functional Status Response Date of Assessment Does the patient have a hearing impairment: No 11/09/2017 as of this encounter Discharge Summaries * Amadou Encarnacion MD - 11/17/2017 2:07 PM MAINFRAME SYSTEMS ADMINISTRATOR Formatting of this note may be different from the original. Physician Discharge Summary Name: Jonathon Jay Date Of : 1945 Age: 72 years Admit date: 11/09/2017 Discharge date: 11/17/2017 Attending Physician: Dr. Angela Monson Service: Med ICU 1 - 2616 Physician Summary completed by: Amadou Encarnacion MD [...] chest with pleural effusion. She transferred to [facility] for CTS consultation. She underwent a [...] or concerns regarding your hospital stay. Call [phone] Discharging attending physician: ANGELA MONSON [[id number]] Regular Diet You have no dietary restriction. Please continue with a healthy balanced diet. Return Appointment - Appointment with Dr. Quintero scheduled for Sunday11/21/17 at 8:00am [facility] Address: [address] [place] [address] Current Discharge Medication List START taking these [...] partner) scheduled for Sunday at 8:00[place] [address] Pending items needing follow up: Signed: Amadou Encarnacion MD 11/17/2017 cc: Primary Care Physician: Tad Campbell Referring physicians: Self, Referral Additional provider(s): in this encounter Discharge Instructions * Discharge Instr - Appointments - Amadou Encarnacion MD - 11/17/2017 11:55 AM MAINFRAME SYSTEMS ADMINISTRATOR - Appointment with Dr. Quintero (Dr. Middleton's partner) scheduled for 11/21 at 8:00am [place] [address] in this encounter Medications at Time of [...] Dayanara Harris RN - 11/17/2017 2:40 PM MAINFRAME SYSTEMS ADMINISTRATOR 0700: Report received and care assumed. Bedside [...] at bedside to take pt [facility] with all belongings. 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 Workup: - Biopsy 10/26/17 in [place], [place] [facility] [...] >60 >60 mL/min Glucose: (!) 109 (11/17/17 1827) Radiology and other Diagnostics Review: Pertinent radiology reviewed. Amadou Encarnacion MD PGY1 Emergency Medicine Pager [phone] Associated attestation - Angela Monson MD - [...] Debora Hernandez APRN - 11/16/2017 9:09 AM MAINFRAME SYSTEMS ADMINISTRATOR Med-Onc Quick Note: - Appointment with Dr. Quintero (Dr. Middleton's partner) scheduled for 11/21 at 8:00am - Awaiting pathology results from biopsy obtained on 11/15 for definitive treatment planning [facility] Address: [facility] [place] [address] Jim Hernandez APRN [phone] * Tani Munson MD - 11/16/2017 5:55 AM MAINFRAME SYSTEMS ADMINISTRATOR Formatting of this note may be different [...] Suspect sarcoma. Workup: - Biopsy 10/26/17 in [place], [place] - path review of [facility] [...] Dr. Jeimy Encarnacion MD PGY1 Emergency Medicine 5152 ATTESTATION I personally performed the zapata portions [...] Amadou Encarnacion MD PGY1 Emergency Medicine Pager [phone] * Maegan Orr, RT - 11/15/2017 6:11 PM MAINFRAME SYSTEMS ADMINISTRATOR Formatting of this note may be different [...] Date: 11/15/2017 Zapata AC=Airway clearance AM=Aerosolized medication BA=Cecil aerosol DB&C=Deep breathe & cough FEV1=Forced expiratory volume in first second) IC=Inspiratory capacity LE=Lung expansion MDI=Metered dose inhaler Neb=Nebulizer O2=Oxygen Oxim=Oximetry PEFR=Peak expiratory flow rate BIG 6 DEALER=Rapid Response Team * Leonarda Watkins, AC - 11/15/2017 6:00 PM MAINFRAME SYSTEMS ADMINISTRATOR 1800 Assumed care of pt from Cat Brendon SHEN. Assessment complete, vss. * Richa Olivas, AC - 11/15/2017 5:40 PM MAINFRAME SYSTEMS ADMINISTRATOR 0730 - assumed care of patient, bedside safety check completed 0800 - assessment completed and documented per ICU flow sheet. Patient alert & oriented x4, follows commands, denies pain at this time. All VSS per patient trends, remains on 6L HFNC, will titrate as tolerated. Will continue to monitor. * Emilee Camargo MD - 11/15/2017 11:44 AM MAINFRAME SYSTEMS ADMINISTRATOR CTS Progress Note Case reviewed in multidisciplinary [...] diagnosis. Emilee Camargo MD * Debora Hernandez, COFFEE BREAK ATTENDANT - 11/15/2017 7:19 AM MAINFRAME SYSTEMS ADMINISTRATOR Formatting of this note may be different [...] spindle cell neoplasm [pending outside consultation with [facility]- report indicates suspicion for low [...] to pursue treatment closer to home, in [place], [place]. Patient already established with Dr. Middleton at [facility]. Will arrange ongoing follow up. Patient discussed [...] Diagnostics Review: Pertinent radiology reviewed. Debora Hernandez, COFFEE BREAK ATTENDANT [phone] * Tani Munson MD - 11/15/2017 6:51 AM MAINFRAME SYSTEMS ADMINISTRATOR Formatting of this note may be different [...] sarcoma. Workup: - S/p biopsy 10/26/17 in [place], [place] with path review of [facility] [...] Dr. Jeimy Encarnacion MD PGY1 Emergency Medicine 5773 ATTESTATION I personally performed the zapata portions [...] Amadou Encarnacion MD PGY1 Emergency Medicine Pager [phone] * Angela Del Castillo, AC - 11/14/2017 7:49 PM MAINFRAME SYSTEMS ADMINISTRATOR 1930: Assumed care of patient. Bedside safety [...] Richa Olivas RN - 11/14/2017 6:36 PM MAINFRAME SYSTEMS ADMINISTRATOR 1730 - patient arrived to 63 from GI/Endo. Bedside safety check completed. Assessment completed and documented per ICU flow sheet. Patient alert & oriented x4, follows commands, denies pain at this time. Placed on HFNC, will titrate as tolerated. All other VSS per patient trends, will continue to monitor. * Elizabeth Navarrete RN - 11/14/2017 5:42 PM MAINFRAME SYSTEMS ADMINISTRATOR Patient arrived to room # (6314) via [...] Harley Niño MD - 11/14/2017 11:10 AM MAINFRAME SYSTEMS ADMINISTRATOR Formatting of this note may be different [...] atypical spindle cell neoplasm. She presented to [facility] in [place], [place] with dyspnea and dry cough, found to have increased right-sided pleural effusion and atelectasis, transferred to [facility]. S/p thoracentesis 11/09 with improvement in dyspnea. Planning on obtaining more tissue for diagnosis based on recommendation of oncology. 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 Workup: - S/p biopsy 10/26/17 in [place], [place] with path review of [facility] [...] Harley Niño MD - 11/13/2017 4:22 PM MAINFRAME SYSTEMS ADMINISTRATOR Formatting of this note may be different [...] atypical spindle cell neoplasm. She presented to [facility] in [place], [place] with dyspnea and dry cough, found to have increased right-sided pleural effusion and atelectasis, transferred to [facility]. S/p thoracentesis 11/09 with improvement in dyspnea. Planning on obtaining more tissue for diagnosis based on recommendation of oncology. 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 Workup: - S/p biopsy 10/26/17 in [place], [place] with path review of [facility] [...] Opal Arellano MD - 11/12/2017 10:09 PM MAINFRAME SYSTEMS ADMINISTRATOR EUS on 11/12/2017 with the axial mass [...] Harley Niño MD - 11/12/2017 8:41 PM MAINFRAME SYSTEMS ADMINISTRATOR Formatting of this note may be different [...] atypical spindle cell neoplasm. She presented to [facility] in [place], [place] with dyspnea and dry cough, found to have increased right-sided pleural effusion and atelectasis, transferred to [facility]. S/p thoracentesis 11/09 with improvement in dyspnea. Planning on obtaining more tissue for diagnosis, with EGD/EUS planned for tomorrow, 11/12. 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 Workup: - S/p biopsy 10/26/17 in [place], [place] with path review of [facility] [...] Christiano Lassiter, AC - 11/12/2017 3:05 PM MAINFRAME SYSTEMS ADMINISTRATOR 1705 - Pt. left 6411 to GI lab. * Debora Hernandez APRN - 11/12/2017 2:39 PM MAINFRAME SYSTEMS ADMINISTRATOR Formatting of this note may be different [...] spindle cell neoplasm [pending outside consultation with [facility]- report indicates suspicion for low [...] Diagnostics Review: Pertinent radiology reviewed. Debora Hernandez, COFFEE BREAK ATTENDANT [phone] * Dianne Cazares, RT - 11/12/2017 10:20 AM MAINFRAME SYSTEMS ADMINISTRATOR Formatting of this note may be different [...] Date: 11/12/2017 Zapata AC=Airway clearance AM=Aerosolized medication BA=Cecil aerosol DB&C=Deep breathe & cough FEV1=Forced expiratory volume in first second) IC=Inspiratory capacity LE=Lung expansion MDI=Metered dose inhaler Neb=Nebulizer O2=Oxygen Oxim=Oximetry PEFR=Peak expiratory flow rate BIG 6 DEALER=Rapid Response Team * Kane Castellano MD - 11/11/2017 1:10 PM MAINFRAME SYSTEMS ADMINISTRATOR Formatting of this note may be different [...] atypical spindle cell neoplasm. She presented to [facility] in [place], [place] with dyspnea and dry cough, found to have increased right-sided pleural effusion and atelectasis, transferred to [facility]. S/p thoracentesis 11/09 with improvement in dyspnea. Planning on obtaining more tissue for diagnosis, with EGD/EUS planned for tomorrow, 11/12. 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 Workup: - S/p biopsy 10/26/17 in [place], [place] with path review of [facility] [...] Full code Hero Castellano MD Hospitalist Pager [phone] Subjective Jonathon Pierre is a 72 y.o. [...] * Loretta Chaudhry - 11/10/2017 8:36 PM MAINFRAME SYSTEMS ADMINISTRATOR Med pvt paged regarding pt increased concern about rash under right breast and on chest. Rash is warm to touch and sensitive. Pt c/o constant burning sensation. Orders placed for nystatin topical cream. This RN routinely monitoring. * Montez Roger, RN - 11/10/2017 7:21 PM MAINFRAME SYSTEMS ADMINISTRATOR Patient called this RN into room to assess newly discovered rash under right breast. Rash is slightly warmer than surrounding skin upon assessment. Patient states rash is a slight burning sensation but not itching. Med Private paged. Order to continue to monitor. * Kane Castellano MD - 11/10/2017 12:37 PM MAINFRAME SYSTEMS ADMINISTRATOR Formatting of this note may be different [...] atypical spindle cell neoplasm. Who presented to [facility] in [place], [place] with dyspnea and dry cough,found to have increased right-sided pleural effusion and atelectasis. S/p thoracentesis 11/09 with improvement in dyspnea. Planning on CTS consult, obtaining more tissue for diagnosis/ EGD/EUS on Sunday. 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 Workup: - S/p biopsy 10/26/17 in [place], [place] with path review of [facility] [...] Full code Hero Castellano MD Hospitalist Pager [phone] Subjective Jonathon Pierre is a 72 y.o. [...] Federica Goff, PT - 11/09/2017 2:40 PM MAINFRAME SYSTEMS ADMINISTRATOR PHYSICAL THERAPY NOTE Per discussion with RN [...] * Miri Thao - 11/09/2017 1:39 PM MAINFRAME SYSTEMS ADMINISTRATOR OCCUPATIONAL THERAPY NO TREATMENT NOTE Patient denies [...] * Marisa Bush - 11/09/2017 11:24 AM MAINFRAME SYSTEMS ADMINISTRATOR Pt left IR in bed with Coltello Ristorante personal. * Yasemin Barlow RN - 11/09/2017 11:07 AM MAINFRAME SYSTEMS ADMINISTRATOR Report called to AC Graves No questions and concerns. Immediate chest xray read by Dr. Hyatt. Pt. Cleared to go back to home unit. * Reid Castillo RN - 11/09/2017 9:42 AM MAINFRAME SYSTEMS ADMINISTRATOR Vital signs q 15 minutes x 4 [...] Faviola Serrato RN - 11/09/2017 3:44 AM MAINFRAME SYSTEMS ADMINISTRATOR Paged regarding a 2.15 second pause. Patient is asymptomatic at this time. Dr. Owen returned page will order an EKG. * Faviola Serrato RN - 11/09/2017 12:59 AM MAINFRAME SYSTEMS ADMINISTRATOR Patient arrived to room # (2233) via cart accompanied by EMS. Patient transferred [...] Jayson Lange MD - 11/14/2017 5:40 PM MAINFRAME SYSTEMS ADMINISTRATOR Formatting of this note may be different [...] atypical spindle cell neoplasm. She presented to [facility] in [place], [place] with dyspnea and dry cough, found to have increased right-sided pleural effusion and atelectasis, transferred to [facility]. S/p thoracentesis 11/09 with improvement in dyspnea. Planning on obtaining more tissue for diagnosis, with EGD/EUS planned for 11/12. 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 Workup: - S/p biopsy 10/26/17 in [place], [place] with path review of [facility] [...] Dr. Erik Encarnacion MD PGY1 Emergency Medicine 6390 ICU Attending Note Jonathon Jay Is critically [...] Amadou Encarnacion MD PGY1 Emergency Medicine Pager [phone] * Kaushik Gutierrez MD - 11/14/2017 3:34 PM MAINFRAME SYSTEMS ADMINISTRATOR Formatting of this note may be different [...] Relevant labs reviewed Kaushik Gutierrez MD Pager [phone] * Pantera Ortiz, MARIAX-UNDERGROUND TRUCK OPERATOR - 11/09/2017 9:48 AM MAINFRAME SYSTEMS ADMINISTRATOR Formatting of this note may be different [...] Tests: Labs: Pertinent labs reviewed Pantera Ortiz APRN-UNDERGROUND TRUCK OPERATOR Pager [phone] * Kenya Ramey MD - 11/09/2017 2:23 AM MAINFRAME SYSTEMS ADMINISTRATOR Formatting of this note may be different [...] cell neoplasm [ pending outside consultation with [facility]]. Patient presented to [facility] in [place], [place] for shortness of breath and dry [...] cell neoplasm [ pending outside consultation with [facility]]. Patient presented to [facility] in [place], [place] for shortness of breath and dry cough. Dyspnea has been ongoing for the last month or so but got worse after the biopsy on 10/26. Patient denies having phlegm, hemoptysis, or chest pain. She was found to have increased right-sided pleural effusion on CT chest without contrast. Her saturation was 88% on room air. She was transferred to [facility] for CTS consultation. Patient states that she has extensive family history of cancer: her father had colon, lung and liver cancer, and her mother had leukemia. She never smoked cigarettes. 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 She lives by herself, and is able to take care of herself. Her kids live near her, in the area of [place]. Past Medical History: Diagnosis Date HTN (hypertension) [...] reviewed. Susana Woo MD Internal Medicine Pager [phone] in this encounter Consult Notes * Charline Alves DO - 11/13/2017 11:08 AM MAINFRAME SYSTEMS ADMINISTRATOR Associated Order(s): CONSULT PULMONARY/CRITICAL CARE PHYSICIAN Formatting [...] who presented with dyspnea and cough to [facility] in [place], [place]. She was found to have a [...] breath so presented to the ED in [place], [place] and then was transferred here. She [...] Elizabeth Alves DO Pulmonary/Critical Care Pager # [phone] 11/13/2017 Associated attestation - Akash Winn MD - 11/13/2017 10:54 PM MAINFRAME SYSTEMS ADMINISTRATOR Formatting of this note may be different [...] Emilee Camargo MD - 11/10/2017 4:00 PM MAINFRAME SYSTEMS ADMINISTRATOR Associated Order(s): CONSULT CARDIOTHORACIC SURGERY PHYSICIAN Formatting of this note may be different from the original. CTS CONSULT Date of Service: 11/10/2017 Requesting Physician: Kenya Ramey MD Consulting Physician: Leyla Lopez MD Consult Performed By: Emilee Camargo MD HPI: Mrs. Jay is a 72 y/o F who presented to [facility] in [place], [place], for shortness of breath and a nonproductive cough. 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 She was transferred to [facility] for further workup. She is currently [...] Leyla Lopez MD - 11/11/2017 8:53 AM MAINFRAME SYSTEMS ADMINISTRATOR Formatting of this note may be different from the original. ATTESTATION I personally performed the zapata portions of the E/M visit, discussed case with resident and concur with resident documentation of history, physical exam, assessment, and treatment plan unless otherwise noted. Staff name: Leyla Lopez MD Date: 11/11/2017 * Bette Kurtz MD - 11/09/2017 10:37 AM MAINFRAME SYSTEMS ADMINISTRATOR Associated Order(s): CONSULT GASTROENTEROLOGY PHYSICIAN Formatting of [...] (pending final pathology work-up), was transferred from [facility] in [place], [place] to [facility] for worsening shortness of breath and [...] (pending final pathology work-up), was transferred from [facility] in [place], [place] to [facility] for worsening shortness of breath and [...] Arellano MD Gastroenterology & Hepatology Fellow Pager [phone] * Debora Hernandez, COFFEE BREAK ATTENDANT - 11/09/2017 7:33 AM MAINFRAME SYSTEMS ADMINISTRATOR Associated Order(s): CONSULT ONCOLOGY PHYSICIAN Formatting of [...] spindle cell neoplasm [pending outside consultation with [facility]- report indicates suspicion for low [...] 72 y.o. female admitted in transfer from [place], [place] for CTS evaluation. Patient has newly [...] FINAL 11/09/2017 Pertinent radiology reviewed. Debora Hernandez, WOOLEN TESTER [phone] Associated attestation - Alvin Fink MD - 11/09/2017 5:29 PM MAINFRAME SYSTEMS ADMINISTRATOR Attestation by Dr. Fink: I saw this [...] and therapeutic thoracentesis. Outside path review from [facility] arrived this pm - possibly [...] - Jeny Carson - 11/16/2017 9:48 AM MAINFRAME SYSTEMS ADMINISTRATOR Case Management Progress Note NAME:Jonathon Jay : [...] ? Medication Needs ? Financial Medicare and [place] ? Legal Legal: DPOA & Advance Directives [...] Transportation?: No ? Discharge Disposition Jeny Carson [facility] [phone] (phone) [phone] (pager) * Case Mgmt DC Plan - Lisa Jurado RN - 11/16/2017 9:11 AM MAINFRAME SYSTEMS ADMINISTRATOR Formatting of this note may be different from the original. Case Management Progress Note NAME:Jonathon Jay : AGE: 72 y.o. ADMISSION DATE: 11/09/2017 DAYS ADMITTED: LOS: 7 days Todays Date: 11/16/2017 Plan Discharge planning Interventions ? Support Support: Pt/Family Updates re:POC or DC Plan ? Info or Referral Patient has her CPAP through [facility] in [place]. [phone] Fax No oxygen SEX WORKER OR ESCORT. ? Discharge Planning Spoke with patient Patient [...] Disposition Latrell Jurado RN MSN ONC Nurse Beading Machine Operator Pg [phone] Durable Medical Equipment No service has been selected for the patient. Destination No service has been selected for the patient. Home Care No service has been selected for the patient. Dialysis/Infusion No service has been selected for the patient. * Anesthesia Post Op Day 1 - Amadou Beard DO - 11/15/2017 7:38 AM MAINFRAME SYSTEMS ADMINISTRATOR Formatting of this note may be different [...] - Shyanne Gonzalez - 11/14/2017 1:16 PM MAINFRAME SYSTEMS ADMINISTRATOR Formatting of this note may be different [...] been selected for the patient. Shyanne Gonzalez, [facility] *[phone] * Anesthesia Post Op Day 1 - Amadou Beard DO - 11/13/2017 7:50 AM MAINFRAME SYSTEMS ADMINISTRATOR Formatting of this note may be different [...] Ely Mclaughlin RN - 11/11/2017 5:15 PM MAINFRAME SYSTEMS ADMINISTRATOR Problem: Discharge Planning Goal: Participation in plan of care Outcome: Goal Ongoing Pt updated on plan of care. No plans to d/c at this time. Problem: Respiratory Impairment (Non-Ventilated Patient) Goal: Effective gas exchange Outcome: Goal Ongoing Pt on 2L NC. * Case Mgmt DC Plan - Shyanne Gonzalez - 11/09/2017 3:27 PM MAINFRAME SYSTEMS ADMINISTRATOR Case Management Admission Assessment NAME:Jonathon Jay : [...] spindle cell neoplasm [pending outside consultation with [facility]]. Patient presented to [facility] in [place], [place] for shortness of breath and dry cough, she was found to have increased right-sided pleural effusion and atelectasis on CT chest without contrast." Patient Address/Phone [address] [address] (home) Emergency Contact Extended Emergency Contact Information Primary Emergency Contact: Becky Griffiths Address: [id number] [place] [address] Mobile Relation: Daughter Preferred language: GABONESE Healthcare Directive Pt does not have a [...] Primary Insurance: Medicare Secondary Insurance: Commercial insurance ([facility]) Additional Coverage: RX ([employer] and [employer]. Pt manages her own medications and is able to afford her Rx) ? Source of Income Source Of Income: Other care home income ? Financial Assistance Needed? none Psychosocial Needs ? Mental Health Mental Health History: No ? Substance Use History Substance Use History Screen: No ? Other none Current/Previous Services ? PCP Tad Campbell, , ? Pharmacy [facility] [address] [place] [id number] ? Durable Medical Equipment Durable Medical Equipment [...] ? Outpatient Therapy PT: No OT: No CASING IN LINE FEEDER: No ? Long Term Facility/Usp SNF: No NH: No ? Inpatient Rehab IPR: No ? Long-Term Acute Care Hospital LTACH: No ? Acute Hospital Stay Acute Hospital Stay: In the past Shyanne Gonzalez [facility] *[phone] * Procedures (Immed Post or Bedside) - Amadou Zeng MD - 11/09/2017 10:38 AM MAINFRAME SYSTEMS ADMINISTRATOR Procedure Note Procedures Immediate Post Procedure Note [...] Faviola Serrato RN - 11/09/2017 5:22 AM MAINFRAME SYSTEMS ADMINISTRATOR Problem: Discharge Planning Goal: Participation in plan [...] WITH 11/14/2017 Lung mass ULTRASOUND 1:30 PM MAINFRAME SYSTEMS ADMINISTRATOR CONSULT IV THERAPY TEAM STAT 11/14/2017 12:18 PM MAINFRAME SYSTEMS ADMINISTRATOR CONSULT IV THERAPY TEAM Routine 11/12/2017 9:26 AM MAINFRAME SYSTEMS ADMINISTRATOR CONSULT IV THERAPY TEAM STAT 11/09/2017 5:01 AM MAINFRAME SYSTEMS ADMINISTRATOR in this encounter Results * PROCEDURE RECORD-SCAN [...] questions. Specimen Performing Laboratory Blood MAIN LAB [address] [place], [place] [address] * PHOSPHORUS (11/17/2017 3:35 AM) Component Value Ref Range Phosphorus 3.9 2.0 - 4.0 MG/DL Specimen Performing Laboratory Blood MAIN LAB [address] [place] [address] * MAGNESIUM (11/17/2017 3:35 AM) Component Value Ref Range Magnesium 2.0 1.6 - 2.6 mg/dL Specimen Performing Laboratory Blood MAIN LAB [address] [place] [address] * CBC AND DIFF (11/17/2017 3:35 AM) [...] Specimen Performing Laboratory Blood MAIN LAB [address] [place] [address] * COMPREHENSIVE METABOLIC PANEL (11/16/2017 5:34 AM) [...] Specimen Performing Laboratory Blood MAIN LAB [address] [place] [address] * PHOSPHORUS (11/16/2017 5:34 AM) Component Value Ref Range Phosphorus 3.8 2.0 - 4.0 MG/DL Specimen Performing Laboratory Blood MAIN LAB [address] [place] [address] * MAGNESIUM (11/16/2017 5:34 AM) Component Value Ref Range Magnesium 2.1 1.6 - 2.6 mg/dL Specimen Performing Laboratory Blood MAIN LAB [address] [place] [address] * CBC AND DIFF (11/16/2017 5:34 AM) [...] Specimen Performing Laboratory Blood MAIN LAB [address] [place] [address] * COMPREHENSIVE METABOLIC PANEL (11/15/2017 2:35 AM) [...] Performing Laboratory Blood [facility] MAIN LAB [address] [place] [address] * PHOSPHORUS (11/15/2017 2:35 AM) Component Value Ref Range Phosphorus 5.0 (H) 2.0 - 4.0 MG/DL Specimen Performing Laboratory Blood MAIN LAB [address] [place] [address] * MAGNESIUM (11/15/2017 2:35 AM) Component Value Ref Range Magnesium 2.2 1.6 - 2.6 mg/dL Specimen Performing Laboratory Blood MAIN LAB [address] [place] [address] * CBC AND DIFF (11/15/2017 2:35 AM) [...] Specimen Performing Laboratory Blood MAIN LAB [address] [place] [address] * CBC AND DIFF (11/14/2017 6:12 PM) [...] Specimen Performing Laboratory Blood MAIN LAB [address] [place] [address] * COMPREHENSIVE METABOLIC PANEL (11/14/2017 6:12 PM) [...] Specimen Performing Laboratory Blood MAIN LAB [address] [place] [address] * MAGNESIUM (11/14/2017 6:12 PM) Component Value Ref Range Magnesium 2.1 1.6 - 2.6 mg/dL Specimen Performing Laboratory Blood MAIN LAB [address] [place] [address] * PHOSPHORUS (11/14/2017 6:12 PM) Component Value Ref Range Phosphorus 4.5 (H) 2.0 - 4.0 MG/DL Specimen Performing Laboratory Blood MAIN LAB [address] [place] [address] * PTT (APTT) (11/14/2017 6:12 PM) Component Value Ref Range APTT 27.7 21.0 - 39.0 SEC Specimen Performing Laboratory Blood MAIN LAB [address] [place] [address] * PROTIME INR (PT) (11/14/2017 6:12 PM) Component Value Ref Range INR 1.2 0.8 - 1.2 Specimen Performing Laboratory Blood MAIN LAB [address] [place] [address] * BRONCHOSCOPY (11/14/2017 2:52 PM) Component Value Ref Range Provation Report Patient Name: Jonathon Jay Procedure Date: 11/14/2017 2:52 PM CSN: [id number] Date of : 1945 Gender: Female Attending Physician: Kaushik Gutierrez MD Procedure:Bronchoscopy Indications:Mediastinal mass Providers:Kaushik Gutierrez MD (Doctor), Ting Stafford, RN (Nurse), Gloria Day RN (Nurse), Oscar No, Track Grinder (Techn ician) Referring Physician:Leyla Lopez Medications:Tetricaine 0.25%/Epinephrine [...] On: 11/14/2017 2:52 PM Specimen Performing Laboratory OTHER RESULTS * TYPE & CROSSMATCH (11/14/2017 12:30 PM) Component Value Ref Range Units Ordered 0 Crossmatch Expires 11/17/2017 Record Check 2ND TYPE REQUIRED ABO/RH(D) O POS Antibody Screen NEG Specimen Performing Laboratory Blood MAIN LAB [address] [place] [address] * PROTIME INR (PT) (11/14/2017 12:30 PM) Component Value Ref Range INR 1.2 0.8 - 1.2 Specimen Performing Laboratory Blood MAIN LAB [address] [place] [address] * FINE NEEDLE ASPIRATE (FNA) (11/14/2017 9:04 AM) Component Value Ref Range Cytology [facility] [email or web address] Department of Pathology and Laboratory Medicine [address] [place] [address] Surgical Pathology Office:[phone]:[phone] CYTOLOGY REPORT NAME: JONATHON JAY SURG PATH #: [id number] MR #: [id number] ALT ID #: [id number] #: [id number] LOCATION: DATE OF PROCEDURE: 11/14/2017 AGE:72 SEX: F DATE RECEIVED: 11/15/2017 : 1945TIME RECEIVED:09:04 PHYSICIAN: KAUSHIK GUTIERREZ [facility] DATE OF REPORT: 11/16/2017 COPY TO: KENYA RAMEY MD BRICE J ZOGLEMAN, MD CROSSER, MICHAEL [facility] DATE OF PRINTIN11/16/2017 Material Received: A: FNA Lung-Right Mainstem History: 72 year old female, history of large mediastinal mass. Gross Description: ( 4 DQ direct smear, 4 Pap direct smear, 1 cell block) Rapid determination of adequacy was performed by the lead tank mechanic, TANNER, on Diff-Quik stained slide(s). Pass one, two and three not adequate for evaluation.Pass four adequate for evaluation.Pass five, six, and seven into RPMI. ################################################## ###################### Final Diagnosis: A. 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 See comment. Please also see concurrent cytology report ([id number]). Comment: Extensive crush artifact is present. Immunohistochemical stains for figueredo-cytokeratin, CAM5.2, CD34, desmin, TTF-1, PAX-8, SOX-10, calretinin, and Ki-67 performed on the cell block are non-contributory due to a lack of lesional tissue. A biopsy/more extensive sampling is recommended for a definitive diagnosis. Pursuant to the [employer] Detail Draftsperson Program at the [facility] Pathology Department, selected slides from this case [...] Performing Laboratory Blood [facility] MAIN LAB [address] [place] [address] * CBC AND DIFF (11/14/2017 5:34 AM) [...] Performing Laboratory Blood [facility] MAIN LAB [address] [place] [address] * CHEST 2 VIEWS (11/13/2017 7:00 AM) [...] Interface, Radiant Results - 11/13/2017 12:02 PM MAINFRAME SYSTEMS ADMINISTRATOR Procedure: CHEST 2 VIEWS Clinical Indication: Cough. [...] M.D. on 11/13/2017 11:59 AM. Dictated by aTni Browning M.D. on 11/13/2017 8:59 AM. * [...] Performing Laboratory Blood [facility] MAIN LAB [address] [place] [address] * CBC AND DIFF (11/13/2017 6:02 AM) [...] Performing Laboratory Blood [facility] MAIN LAB [address] [place] [address] * ENDOSCOPIC ULTRASOUND REPORT (11/12/2017 6:12 PM) Component Value Ref Range Provation Report Patient Name: Pierre Garner Procedure Date: 11/12/2017 6:12 PM CSN: [id number] Date of : 1945 Gender: Female Attending Physician: Mcihael Wade MD Procedure: Upper EUS Indications:Gorman spected mass in mediastinum on chest CT Providers: Michael Wade MD (Doctor), Truong Burrell MD (Fellow), Miri Hairston (Nurse), Randi Levin, Track Grinder (Track Grinder) Referring Physician:Referral Self Medications:Mo nitored Anesthesia Care [...] minutes 23 seconds Procedure Code(s):--- Professional --- 83633, Esophagogastroduodenoscopy, flexible, transoral; with endoscopic ultrasound examination, including the esophagus, stomach, and either the duodenum or a surgically altered stomach where the jejunum is examined distal to the anastomosis Diagnosis Code(s):--- Professional --- J98.59, Other diseases of mediastinum, not elsewhere classified R93.8, Abnormal findings on diagnostic imaging of other specified body structures CPT copyright 2016 [employer]. All rights reserved. The codes documented in this report are preliminary and upon brake adjuster review may be revised to meet current [...] Specimen Performing Laboratory Blood MAIN LAB [address] [place] [address] * CBC AND DIFF (11/12/2017 5:14 AM) [...] Specimen Performing Laboratory Blood MAIN LAB [address] [place] [address] * COMPREHENSIVE METABOLIC PANEL (11/11/2017 5:33 AM) [...] Performing Laboratory Blood [facility] MAIN LAB [address] [place] [address] * CBC AND DIFF (11/11/2017 5:33 AM) [...] Specimen Performing Laboratory Blood MAIN LAB [address] [place] [address] * COMPREHENSIVE METABOLIC PANEL (11/10/2017 4:36 AM) [...] Specimen Performing Laboratory Blood MAIN LAB [address] [place] [address] * CBC AND DIFF (11/10/2017 4:36 AM) [...] Performing Laboratory Blood [facility] MAIN LAB [address] [place] [address] * NON-MEDICAL CLAIMS REPRESENTATIVE CYTOLOGY (BODY FLUIDS/TISSUE) (11/09/2017 2:22 PM) Component Value Ref Range Cytology [facility] [employer] Department of Pathology and Laboratory Medicine [address] [place] [address] Surgical Pathology Office:[phone]:[phone] CYTOLOGY REPORT NAME: JONATHON JAY CYTOLOGY #: [id number] MR #: [id number] ALT ID #: [id number] #: [id number] LOCATION: DATE OF PROCEDURE: 11/09/2017 AGE:72 SEX: F DATE RECEIVED: 11/09/2017 : 1945TIME RECEIVED:14:22 PHYSICIAN: SUSANA WOO MD DATE OF REPORT: 11/16/2017 COPY TO: KENYA ARMEY DATE OF PRINTIN11/16/2017 Material Received: A: Pleural [...] Interface, Radiant Results - 11/09/2017 5:41 PM MAINFRAME SYSTEMS ADMINISTRATOR PET/CT NECK, CHEST, ABDOMEN AND PELVIS CLINICAL [...] effusion MEDICATIONS: 5 mL subcutaneous 2% lidocaine LOGGING TRACTOR OPERATOR: Matthew Bejarano M.D., Amadou Zeng M.D. [...] Interface, Radiant Results - 11/12/2017 10:39 AM MAINFRAME SYSTEMS ADMINISTRATOR Ultrasound-guided Thoracentesis CLINICAL INDICATION: Symptomatic pleural effusion MEDICATIONS: 5 mL subcutaneous 2% lidocaine LOGGING TRACTOR OPERATOR: Matthew Bejarano M.D., Amadou Zeng M.D. [...] Interface, Radiant Results - 11/09/2017 12:28 PM MAINFRAME SYSTEMS ADMINISTRATOR Chest, single view with inspiration and expiration [...] Interface, Radiant Results - 11/09/2017 5:47 PM MAINFRAME SYSTEMS ADMINISTRATOR CHEST IMMEDIATE POST PROCEDURE INSP/EXP Clinical Indication: [...] Specimen Performing Laboratory Thoracentesis Fluid MAIN LAB [address] [place] [address] * PLEURAL FLUID TOTAL PROTEIN (11/09/2017 10:36 AM) Component Value Ref Range Pleural Fluid Total 3.6 (H)Comment: Serum to pleural fluid protein <1.1 g/ dL Protein gradient >3.1 g/dL is suggestive of an exudate Specimen Performing Laboratory Pleural fluid - [facility] LAB Thoracentesis Fluid [address] [place] [address] * PLEURAL FLUID PH (11/09/2017 10:36 AM) Component Value Ref Range Pleural Fluid Ph 7.45 (L) 7.60 - 7.66 Specimen Performing Laboratory Pleural fluid - [facility] LAB Thoracentesis Fluid [address] [place] [address] * PLEURAL FLUID LACTATE DEHYDROGENASE (11/09/2017 10:36 AM) Component Value Ref Range Pleural Fluid Lactate 398 (H)Comment: Higher levels suggestive of 67 - 140 U/L Dehydrogenase exudate Specimen Performing Laboratory Pleural fluid - [facility] LAB Thoracentesis Fluid [address] [place] [address] * PLEURAL FLUID GLUCOSE (11/09/2017 10:36 AM) Component Value Ref Range Pleural Fluid Glucose 102 (H) 70 - 100 mg/dL Comment: Glucose <60 mg/dL associated withparapneumonic effusion, tuberculosis, malignancy, empyema, and rheumatoid disease Specimen Performing Laboratory Pleural fluid - MAIN LAB Thoracentesis Fluid [address] [place] [address] * PLEURAL FLUID ALBUMIN (11/09/2017 10:36 AM) Component Value Ref Range Pleural Fluid Albumin 2.4Comment: Pleural fluid albumin gradient >1.2 g/ dL g/dL is suggestive of an exudate Specimen Performing Laboratory Pleural fluid - [facility] LAB Thoracentesis Fluid [address] [place] [address] * CULTURE-WOUND/TISSUE/FLUID(AEROBIC ONLY)W/SENSITIVITY (11/09/2017 10:36 AM) Component Value Ref Range Battery Name ROUTINE CULTURE Specimen Description THORACENTESIS FLUID Special Requests NONE Direct Gram Stain FEW NEUTROPHILS NO ORGANISMS SEEN Culture NO GROWTH 5 DAYS Report Status FINAL 11/14/2017 Specimen Performing Laboratory Pleural fluid - [facility] LAB Thoracentesis Fluid [address] [place] [address] * CULTURE-ANAEROBIC (11/09/2017 10:36 AM) Component Value Ref Range Battery Name ANAEROBE CULTURE Specimen Description THORACENTESIS FLUID Special Requests NONE Culture NO ANAEROBES ISOLATED Report Status FINAL 11/14/2017 Specimen Performing Laboratory Pleural fluid - [facility] LAB Thoracentesis Fluid [address] [place] [address] * CELL COUNT W/DIFF-FLUIDS (11/09/2017 10:36 AM) [...] this report. Specimen Performing Laboratory Pleural fluid [facility] Thoracentesis Fluid [address] [place] [address] * LEGIONELLA ANTIGEN URINE,RAN (11/09/2017 7:22 AM) Component Value Ref Range Battery Name LEGIONELLA URINE ANTIGEN Specimen Description URINE Special Requests NONE Antigen NEGATIVE Report Status FINAL 11/09/2017 Specimen Performing Laboratory Urine [facility] LAB [address] [place] [address] * STREPTOCOCCUS PNEUMO AG, URINE (11/09/2017 7:22 AM) Component Value Ref Range Battery Name STREP PNEUMO AG, UR Specimen Description URINE Special Requests NONE Antigen NEGATIVE Report Status FINAL 11/09/2017 Specimen Performing Laboratory Urine MAIN LAB [address] [place] [address] * RVP VIRAL PANEL PCR (11/09/2017 3:05 [...] Specimen Performing Laboratory Nasopharyngeal Swab MAIN LAB [address] [place], [place] [address] * BNP (B-TYPE NATRIURETIC PEPTI) (11/09/2017 2:55 AM) Component Value Ref Range B Type Natriuretic 28.0 0 - 100 PG/ML Peptide Specimen Performing Laboratory Blood MAIN LAB [address] [place] [address] * CULTURE-BLOOD W/SENSITIVITY (11/09/2017 2:55 AM) Component Value Ref Range Battery Name BLOOD CULTURE Specimen Description BLOOD RIGHT FA Special Requests NONE Culture NO GROWTH 5 DAYS Report Status FINAL 11/15/2017 Specimen Performing Laboratory Blood MAIN LAB [address] [place] [address] * CULTURE-BLOOD W/SENSITIVITY (11/09/2017 2:55 AM) Component Value Ref Range Battery Name BLOOD CULTURE Specimen Description BLOOD LEFT ANTECUBITAL Special Requests NONE Culture NO GROWTH 5 DAYS Report Status FINAL 11/15/2017 Specimen Performing Laboratory Blood MAIN LAB [address] [place] [address] * TSH WITH FREE T4 REFLEX (11/09/2017 2:55 AM) Component Value Ref Range TSH 1.008 0.35 - 5.00 MCU/ML Specimen Performing Laboratory Blood MAIN LAB [address] [place] [address] * TROPONIN-I (11/09/2017 2:55 AM) Component Value Ref Range Troponin-I 0.01 0.0 - 0.05 NG/ML Specimen Performing Laboratory Blood MAIN LAB [address] [place] [address] * COMPREHENSIVE METABOLIC PANEL (11/09/2017 2:55 AM) [...] Specimen Performing Laboratory Blood MAIN LAB [address] [place] [address] * PROTIME INR (PT) (11/09/2017 2:55 AM) Component Value Ref Range INR 1.1 0.8 - 1.2 Specimen Performing Laboratory Blood MAIN LAB [address] [place] [address] * CBC AND DIFF (11/09/2017 2:55 AM) [...] Performing Laboratory Blood [facility] MAIN LAB [address] [place] [address] * GENERAL RAD CHEST EXTERNAL IMAGING (11/08/2017 [...] mg, Oral, EVERY 6 HOURS PRN, 06:23 MAINFRAME SYSTEMS ADMINISTRATOR Starting Sun11/09/17 at 0218, Until 11/17/17 at 1909, Pain non-opioid: may be used alone or in combination with opioid analgesia, TOTAL ACETAMINOPHEN DOSE NOT TO EXCEED 4GM DAILY Given 11/13/2017 650 mg 12:33 MAINFRAME SYSTEMS ADMINISTRATOR Given 11/13/2017 650 mg 20:01 MAINFRAME SYSTEMS ADMINISTRATOR enalapril (VASOTEC) tablet 10 mg Given 11/16/2017 10 mg 10 mg, Oral, DAILY, First dose on Sun 08:01 MAINFRAME SYSTEMS ADMINISTRATOR 11/16/17 at 0900, Until Discontinued Given 11/17/2017 10 mg 08:55 MAINFRAME SYSTEMS ADMINISTRATOR hydroCHLOROthiazide (HYDRODIURIL) tablet Given 11/16/2017 12.5 mg 12.5 mg 08:01 MAINFRAME SYSTEMS ADMINISTRATOR 12.5 mg, Oral, DAILY, First dose on Sun11/16/17 at 0900, Until Discontinued Given 11/17/2017 12.5 mg 08:55 MAINFRAME SYSTEMS ADMINISTRATOR levothyroxine (SYNTHROID) tablet 137 mcg Given 11/15/2017 137 mcg 137 mcg, Oral, DAILY 30MIN BEFORE 08:18 MAINFRAME SYSTEMS ADMINISTRATOR BREAKFAST, First dose on Sun11/09/17 at 0630, Until Discontinued, Give 1 hour before a meal. If patient is receiving tube feedings, hold tube feed 1hr before and 1hr after dose. Given 11/16/2017 137 mcg 07:52 MAINFRAME SYSTEMS ADMINISTRATOR Given 11/17/2017 137 mcg 06:13 MAINFRAME SYSTEMS ADMINISTRATOR nystatin (MYCOSTATIN) topical cream Given 11/10/2017 Topical, TWICE DAILY PRN, Starting Sat 21:26 MAINFRAME SYSTEMS ADMINISTRATOR 11/10/17 at 2055, Until 11/17/17 at 1909, Rash, Right Breast Given 11/13/2017 20:02 MAINFRAME SYSTEMS ADMINISTRATOR Given 11/13/2017 20:04 MAINFRAME SYSTEMS ADMINISTRATOR triamcinolone acetonide (KENALOG) 0.1 % Given 11/15/2017 topical ointment 20:18 MAINFRAME SYSTEMS ADMINISTRATOR Topical, TWICE DAILY, First dose on 11/11/17 at 1100, Until Discontinued, Apply to right chest Given 11/16/2017 10:00 MAINFRAME SYSTEMS ADMINISTRATOR Given 11/17/2017 06:13 MAINFRAME SYSTEMS ADMINISTRATOR in this encounter
--- OUTSIDE RECORDS SUMMARY | 2018-01-04 13:07 | XMS REPORT | Encounter Summary ---
Author Author [facility] Organization [facility] Address Unknown Phone Unavailable Care Team Providers Care Top Cleaner Name Role Phone Tad Campbell MD PCP Encounter Details Date Type Department Care Team Description 11/12/2017 Procedure Pass Gastrointenstinal Endoscopy [address] [place] [address] Social History Tobacco Use Types [...]
--- OUTSIDE RECORDS SUMMARY | 2018-01-04 13:07 | XMS REPORT | Encounter Summary ---
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 She presented to [facility] in [place], [place] with dyspnea and dry cough, found to have increased right-sided pleural effusion and atelectasis, transferred to [facility]. S/p thoracentesis 3/ with improvement in [...] blood products. Plan discussed with: anesthesiologist and DYNAMOTOR REPAIRER. in this encounter Plan of Treatment Not on fileas of this encounter Visit Diagnoses Not on filein this encounter Administered Medications Medication Order MAR Action Action Date Dose Rate Site dexamethasone (DECADRON) injection Given 11/14/2017 4 mg Intravenous, INTRA-PROCEDURE MED, 15:43 LOGISTICS TEAM LEAD Starting Sun11/14/17 at 1543, Until Sun11/14/17 at 1740, Nausea/Vomiting Injectable, Anesthesia Intra-op ePHEDrine 50 mg/mL 50 mg in sodium Bolus 11/14/2017 15 mg chloride PF 0.9% 5 mL IV syringe 16:04 LOGISTICS TEAM LEAD 5 mL, INTRA-PROCEDURE MED(CONT), Starting Sun11/14/17 at 1602, Until Sun11/14/17 at 1740, Anesthesia Intra-op Bolus 11/14/2017 10 mg 16:10 LOGISTICS TEAM LEAD Bolus 11/14/2017 10 mg 16:15 LOGISTICS TEAM LEAD fentaNYL citrate PF (SUBLIMAZE) Given 11/14/2017 50 mcg injection 15:37 LOGISTICS TEAM LEAD INTRA-PROCEDURE MED, Starting Sun11/14/17 at 1537, Until Sun11/14/17 at 1740, Pain Injectable, Anesthesia Intra-op Given 11/14/2017 50 mcg 15:45 LOGISTICS TEAM LEAD lactated ringers infusion Given - New 11/14/2017 INTRA-PROCEDURE MED(CONT), Starting Sun Bag 15:30 LOGISTICS TEAM LEAD 11/14/17 at 1530, Until Sun11/14/17 at 1740, Anesthesia Intra-op lidocaine (PF) injection Given 11/14/2017 50 mg INTRA-PROCEDURE MED, Starting Sun11/14/17 15:37 LOGISTICS TEAM LEAD at 1537, Until Sun11/14/17 at 1740, Anesthesia Intra-op ondansetron (ZOFRAN) injection Given 11/14/2017 4 mg Intravenous, INTRA-PROCEDURE MED, 15:43 LOGISTICS TEAM LEAD Starting Sun11/14/17 at 1543, Until Sun11/14/17 at 1740, Nausea/Vomiting Injectable, Anesthesia Intra-op phenylephrine in NS Injection Given 11/14/2017 200 mcg Intravenous, INTRA-PROCEDURE MED, 15:49 LOGISTICS TEAM LEAD Starting Sun11/14/17 at 1546, Until Sun11/14/17 at 1740, Symptomatic Hypotension, Anesthesia Intra-op Given 11/14/2017 150 mcg 15:52 LOGISTICS TEAM LEAD Given 11/14/2017 100 mcg 16:04 LOGISTICS TEAM LEAD propofol (DIPRIVAN) injection Given 11/14/2017 150 mg INTRA-PROCEDURE MED, Starting 11/14/17 15:37 LOGISTICS TEAM LEAD at 1537, Until Sun11/14/17 at 1740, Anesthesia Intra-op Given 11/14/2017 50 mg 15:55 LOGISTICS TEAM LEAD succinylcholine (ANECTINE) injection Given 11/14/2017 100 mg Intravenous, INTRA-PROCEDURE MED, 15:37 LOGISTICS TEAM LEAD Starting Sun11/14/17 at 1537, Until Sun11/14/17 at 1740, Anesthesia Intra-op in this encounter
--- OUTSIDE RECORDS SUMMARY | 2018-01-04 13:07 | XMS REPORT | Encounter Summary ---
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 * Anesthesia Preprocedure Evaluation - Kaleigh Garcia MD - 11/12/2017 6:02 PM RN RENAL Formatting of this note may be different [...] METS Hypertension, No valvular problems/murmurs No past VT, No hx of coronary artery disease No [...] consented to blood products. Plan discussed with: CONTRACT MANAGER. in this encounter Plan of Treatment Not on fileas of this encounter Visit Diagnoses Not on filein this encounter Administered Medications Medication Order MAR Action Action Date Dose Rate Site propofol (DIPRIVAN) infusion Given - New 11/12/2017 50 27.3 mL/hr 20 mL, Intravenous, INTRA-PROCEDURE Bag 18:27 RN RENAL mcg/kg/min MED(CONT), Starting 11/12/17 at 1827, Until 11/12/17 at 1854, Anesthesia Intra-op propofol (DIPRIVAN) injection Given 11/12/2017 12 mg INTRA-PROCEDURE MED, Starting 11/12/17 18:27 RN RENAL at 1827, Until 11/12/17 at 1854, Anesthesia Intra-op sodium chloride 0.9 % infusion Given - New 11/12/2017 INTRA-PROCEDURE MED(CONT), Starting Mon Bag 18:24 RN RENAL 11/12/17 at 1824, Until 11/12/17 at 1854, Anesthesia Intra-op in this encounter
--- OUTSIDE RECORDS SUMMARY | 2018-01-04 13:07 | XMS REPORT | Encounter Summary ---
Author Author [facility] Organization [facility] Address Unknown Phone Unavailable Care Team Providers Care Pharmacy Retail Support Specialist Name Role Phone Tad Campbell MD PCP Encounter Details Date Type Department Care Team Description 11/13/2017 Prep for Case [facility] Kaushik Gutierrez MD Lung mass (Primary Dx) Physicians - Internal [address] [facility] [place] [address] [place] [address] [address] [facility] [phone] [place] [address] Social History Tobacco Use Types [...]
--- OUTSIDE RECORDS SUMMARY | 2018-01-04 13:08 | XMS REPORT | Encounter Summary ---
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 Encounter Details Date Type Department Care Team Description 11/12/2017 Surgery Gastrointenstinal Michael Wade MD ESOPHAGOGASTRODUODENOSCOP Endoscopy [address] ENDOSCOPIC ULTRASOUND [address] [place] [address] [place] [address] [phone] Social History Tobacco Use Types Packs/Day Years Used Date Never Smoker Smokeless Tobacco: Never Used Alcohol Use Drinks/Week oz/Week Comments No Sex Assigned at Date Recorded Not on file as of this encounter Last Filed Vital Signs Vital Sign Reading Time Taken Blood Pressure 142/75 11/17/2017 9:00 AM BEAM DYER RECESSED VAT Pulse 99 11/16/2017 8:00 PM BEAM DYER RECESSED VAT Temperature 36.8 C (98.2 F) 11/17/2017 9:00 AM BEAM DYER RECESSED VAT Respiratory Rate - - Oxygen Saturation 93% 11/17/2017 4:00 PM BEAM DYER RECESSED VAT Inhaled Oxygen - - Concentration Weight 90.4 kg (199 lb 4.7 oz) 11/14/2017 5:33 PM BEAM DYER RECESSED VAT Height 154.9 cm (5' 1") 11/09/2017 12:13 AM BEAM DYER RECESSED VAT Body Mass Index 37.66 11/14/2017 5:33 PM BEAM DYER RECESSED VAT in this encounter Functional Status Functional Status Response Date of Assessment Does the patient have a hearing impairment: No 11/09/2017 as of this encounter Discharge Summaries * Amadou Encarnacion MD - 11/17/2017 2:07 PM BEAM DYER RECESSED VAT Formatting of this note may be different [...] chest with pleural effusion. She transferred to [facility] for CTS consultation. She underwent a thoracentesis [...] or concerns regarding your hospital stay. Call [phone] Discharging attending physician: ANGELA MONSON [[id number]] Regular Diet You have no dietary restriction. Please continue with a healthy balanced diet. Return Appointment - Appointment with Dr. Quintero scheduled for Sunday11/21/17 at 8:00am [facility] Address: [facility] [place] [address] Current Discharge Medication List START taking these [...] partner) scheduled for Sunday at 8:[place] [address] Pending items needing follow up: Signed: Amadou Encarnacion MD 11/17/2017 cc: Primary Care Physician: Tad Campbell Referring physicians: Self, Referral Additional provider(s): in this encounter Discharge Instructions * Discharge Instr - Appointments - Amadou Encarnacion MD - 11/17/2017 11:55 AM BEAM DYER RECESSED VAT - Appointment with Dr. Quintero (Dr. Middleton's partner) scheduled for 11/21 at 8:00[place] [address] in this encounter Medications at Time of [...] Dayanara Harris RN - 11/17/2017 2:40 PM BEAM DYER RECESSED VAT 0700: Report received and care assumed. Bedside [...] Transport at bedside to take pt [facility] via wheelchair with all belongings. 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 Workup: - Biopsy 10/26/17 in [place], [place] [facility] [...] >60 >60 mL/min Glucose: (!) 109 (11/17/17 6747) Radiology and other Diagnostics Review: Pertinent radiology reviewed. Amadou Encarnacion MD PGY1 Emergency Medicine Pager [phone] Associated attestation - Angela Monson MD - [...] Debora Hernandez APRN - 11/16/2017 9:09 AM BEAM DYER RECESSED VAT Med-Onc Quick Note: - Appointment with Dr. Quintero (Dr. Middleton's partner) scheduled for 11/21 at 8:00am - Awaiting pathology results from biopsy obtained on 11/15 for definitive treatment planning [facility] Address: [address] [place] [id number] Jim Hernandez, MARIXA [phone] * Tani Munson MD - 11/16/2017 5:55 AM BEAM DYER RECESSED VAT Formatting of this note may be different [...] Suspect sarcoma. Workup: - Biopsy 10/26/17 in [place], [place] - path review of [facility] [...] Dr. Jeimy Encarnacion MD PGY1 Emergency Medicine 8565 ATTESTATION I personally performed the zapata portions [...] Amadou Encarnacion MD PGY1 Emergency Medicine Pager [phone] * Maegan Orr, RT - 11/15/2017 6:11 PM BEAM DYER RECESSED VAT Formatting of this note may be different [...] Date: 11/15/2017 Zapata AC=Airway clearance AM=Aerosolized medication BA=Posey aerosol DB&C=Deep breathe & cough FEV1=Forced expiratory volume in first second) IC=Inspiratory capacity LE=Lung expansion MDI=Metered dose inhaler Neb=Nebulizer O2=Oxygen Oxim=Oximetry PEFR=Peak expiratory flow rate WRINGER OPERATOR=Rapid Response Team * Leonarda Watkins, RN - 11/15/2017 6:00 PM BEAM DYER RECESSED VAT 1800 Assumed care of pt from Cat Brendon RN. Assessment complete, vss. * Richa Olivas RN - 11/15/2017 5:40 PM BEAM DYER RECESSED VAT 0730 - assumed care of patient, bedside safety check completed 0800 - assessment completed and documented per ICU flow sheet. Patient alert & oriented x4, follows commands, denies pain at this time. All VSS per patient trends, remains on 6L HFNC, will titrate as tolerated. Will continue to monitor. * Emilee Camargo MD - 11/15/2017 11:44 AM BEAM DYER RECESSED VAT CTS Progress Note Case reviewed in multidisciplinary [...] diagnosis. 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 Patient already established with Dr. Middleton [...] Diagnostics Review: Pertinent radiology reviewed. Debora Hernandez, ENVIRONMENT ARTIST [phone] * Tani Munson MD - 11/15/2017 6:51 AM BEAM DYER RECESSED VAT Formatting of this note may be different [...] sarcoma. Workup: - S/p biopsy 10/26/17 in [place], [place] with path review of [facility] [...] Dr. Jeimy Encarnacion MD PGY1 Emergency Medicine 5313 ATTESTATION I personally performed the zapata portions [...] Amadou Encarnacion MD PGY1 Emergency Medicine Pager [phone] * Angela Del Castillo RN - 11/14/2017 7:49 PM BEAM DYER RECESSED VAT 1930: Assumed care of patient. Bedside safety check completed with day shift RN. Lines and alarms verified. Patient alert and oriented x4, follows commands, on HFNC. 2000: Assessment completed and documented per ICU flowsheet. Patient VSS per patient trend. Orders reviewed and implemented. Bed locked low. Call light in reach. Will continue to monitor and assess. * Richa Olivsa RN - 11/14/2017 6:36 PM BEAM DYER RECESSED VAT 1730 - patient arrived to 63 from GI/Endo. Bedside safety check completed. Assessment completed and documented per ICU flow sheet. Patient alert & oriented x4, follows commands, denies pain at this time. Placed on HFNC, will titrate as tolerated. All other VSS per patient trends, will continue to monitor. * Elizabeth Navarrete RN - 11/14/2017 5:42 PM BEAM DYER RECESSED VAT Patient arrived to room # (6314) via [...] Harley Niño MD - 11/14/2017 11:10 AM BEAM DYER RECESSED VAT Formatting of this note may be different [...] atypical spindle cell neoplasm. She presented to [facility] in [place], [place] with dyspnea and dry cough, found to have increased right-sided pleural effusion and atelectasis, transferred to [facility]. S/p thoracentesis 11/09 with improvement in dyspnea. Planning on obtaining more tissue for diagnosis based on recommendation of oncology. 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 Workup: - S/p biopsy 10/26/17 in [place], [place] with path review of [facility] [...] Harley Niño MD - 11/13/2017 4:22 PM BEAM DYER RECESSED VAT Formatting of this note may be different [...] atypical spindle cell neoplasm. She presented to [facility] in [place], [place] with dyspnea and dry cough, found to have increased right-sided pleural effusion and atelectasis, transferred to [facility]. S/p thoracentesis 11/09 with improvement in dyspnea. Planning on obtaining more tissue for diagnosis based on recommendation of oncology. 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 Workup: - S/p biopsy 10/26/17 in [place], [place] with path review of [facility] [...] Opal Arellano MD - 11/12/2017 10:09 PM BEAM DYER RECESSED VAT EUS on 11/12/2017 with the axial mass [...] Harley Niño MD - 11/12/2017 8:41 PM BEAM DYER RECESSED VAT Formatting of this note may be different [...] atypical spindle cell neoplasm. She presented to [facility] in [place], [place] with dyspnea and dry cough, found to have increased right-sided pleural effusion and atelectasis, transferred to [facility]. S/p thoracentesis 11/09 with improvement in dyspnea. Planning on obtaining more tissue for diagnosis, with EGD/EUS planned for tomorrow, 11/12. 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 Workup: - S/p biopsy 10/26/17 in [place], [place] with path review of [facility] [...] Christiano Lassiter, AC - 11/12/2017 3:05 PM BEAM DYER RECESSED VAT 1705 - Pt. left 6411 to GI lab. * Debora Hernandez APRN - 11/12/2017 2:39 PM BEAM DYER RECESSED VAT Formatting of this note may be different [...] spindle cell neoplasm [pending outside consultation with [facility] block- report indicates suspicion for low grade [...] Diagnostics Review: Pertinent radiology reviewed. Debora Hernandez, ENVIRONMENT ARTIST [phone] * Dianne Cazares, RT - 11/12/2017 10:20 AM BEAM DYER RECESSED VAT Formatting of this note may be different [...] Date: 11/12/2017 Zapata AC=Airway clearance AM=Aerosolized medication BA=Posey aerosol DB&C=Deep breathe & cough FEV1=Forced expiratory volume in first second) IC=Inspiratory capacity LE=Lung expansion MDI=Metered dose inhaler Neb=Nebulizer O2=Oxygen Oxim=Oximetry PEFR=Peak expiratory flow rate WRINGER OPERATOR=Rapid Response Team * Kane Castellano MD - 11/11/2017 1:10 PM BEAM DYER RECESSED VAT Formatting of this note may be different [...] atypical spindle cell neoplasm. She presented to [facility] in [place], [place] with dyspnea and dry cough, found to have increased right-sided pleural effusion and atelectasis, transferred to [facility]. S/p thoracentesis 11/09 with improvement in dyspnea. Planning on obtaining more tissue for diagnosis, with EGD/EUS planned for tomorrow, 11/12. 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 Workup: - S/p biopsy 10/26/17 in [place], [place] with path review of [facility] [...] Full code Hero Castellano MD Hospitalist Pager [phone] Heather Garner Pierre is a 72 y.o. [...] * Loretta Chaudhry - 11/10/2017 8:36 PM BEAM DYER RECESSED VAT Med pvt paged regarding pt increased concern about rash under right breast and on chest. Rash is warm to touch and sensitive. Pt c/o constant burning sensation. Orders placed for nystatin topical cream. This RN routinely monitoring. * Montez Roger RN - 11/10/2017 7:21 PM BEAM DYER RECESSED VAT Patient called this RN into room to assess newly discovered rash under right breast. Rash is slightly warmer than surrounding skin upon assessment. Patient states rash is a slight burning sensation but not itching. Med Private paged. Order to continue to monitor. * Kane Castellano MD - 11/10/2017 12:37 PM BEAM DYER RECESSED VAT Formatting of this note may be different [...] atypical spindle cell neoplasm. Who presented to [facility] in [place], [place] with dyspnea and dry cough,found to have increased right-sided pleural effusion and atelectasis. S/p thoracentesis 11/09 with improvement in dyspnea. Planning on CTS consult, obtaining more tissue for diagnosis/ EGD/EUS on Sunday. 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 Workup: - S/p biopsy 10/26/17 in [place], [place] with path review of [facility] [...] Full code Hero Castellano MD Hospitalist Pager [phone] Heather Garner Pierre is a 72 y.o. [...] Federica Goff, PT - 11/09/2017 2:40 PM BEAM DYER RECESSED VAT PHYSICAL THERAPY NOTE Per discussion with RN [...] * Miri Thao - 11/09/2017 1:39 PM BEAM DYER RECESSED VAT OCCUPATIONAL THERAPY NO TREATMENT NOTE Patient denies [...] a change in functional status. Therapist: Miri Thoa OTR/L 1214 Date: 11/09/2017 * Marisa Bush - 11/09/2017 11:24 AM BEAM DYER RECESSED VAT Pt left IR in bed with [employer] personal. * Yasemin Barlow RN - 11/09/2017 11:07 AM BEAM DYER RECESSED VAT Report called to AC Graves No questions and concerns. Immediate chest xray read by Dr. Hyatt. Pt. Cleared to go back to home unit. * Reid Castillo RN - 11/09/2017 9:42 AM BEAM DYER RECESSED VAT Vital signs q 15 minutes x 4 [...] Faviola Serrato RN - 11/09/2017 3:44 AM BEAM DYER RECESSED VAT Paged regarding a 2.15 second pause. Patient is asymptomatic at this time. Dr. Owen returned page will order an EKG. * Faviola Serrato RN - 11/09/2017 12:59 AM BEAM DYER RECESSED VAT Patient arrived to room # (0639) via cart accompanied by EMS. Patient transferred [...] Jayson Lange MD - 11/14/2017 5:40 PM BEAM DYER RECESSED VAT Formatting of this note may be different [...] atypical spindle cell neoplasm. She presented to [facility] in [place], [place] with dyspnea and dry cough, found to have increased right-sided pleural effusion and atelectasis, transferred to [facility]. S/p thoracentesis 11/09 with improvement in dyspnea. Planning on obtaining more tissue for diagnosis, with EGD/EUS planned for 11/12. 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 Workup: - S/p biopsy 10/26/17 in [place], [place] with path review of [facility] [...] Dr. Erik Encarnacion MD PGY1 Emergency Medicine 1506 ICU Attending Note Jonathon Jay Is critically [...] Amadou Encarnacion MD PGY1 Emergency Medicine Pager [phone] * Kaushik Gutierrez MD - 11/14/2017 3:34 PM BEAM DYER RECESSED VAT Formatting of this note may be different [...] Relevant labs reviewed Kaushik Gutierrez MD Pager [phone] * Pantera Ortiz, MARIXA-ASSISTANT PROFESSOR OF PHILOSOPHY - 11/09/2017 9:48 AM BEAM DYER RECESSED VAT Formatting of this note may be different [...] Tests: Labs: Pertinent labs reviewed Pantera Ortiz APRN-ASSISTANT PROFESSOR OF PHILOSOPHY Pager [phone] * Kenya Ramey MD - 11/09/2017 2:23 AM BEAM DYER RECESSED VAT Formatting of this note may be different [...] [facility]]. Patient presented to [facility] in [place], [place] for shortness of breath and dry [...] [facility]]. Patient presented to [facility] in [place], [place] for shortness of breath and dry cough. Dyspnea has been ongoing for the last month or so but got worse after the biopsy on 10/26. Patient denies having phlegm, hemoptysis, or chest pain. She was found to have increased right-sided pleural effusion on CT chest without contrast. Her saturation was 88% on room air. She was transferred to [facility] for CTS consultation. Patient states that she has extensive family history of cancer: her father had colon, lung and liver cancer, and her mother had leukemia. She never smoked cigarettes. 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 She lives by herself, and is able to take care of herself. Her kids live near her, in the area of [place]. Past Medical History: Diagnosis Date HTN (hypertension) [...] reviewed. Susana Woo MD Internal Medicine Pager [phone] in this encounter Consult Notes * Charline Alves DO - 11/13/2017 11:08 AM BEAM DYER RECESSED VAT Associated Order(s): CONSULT PULMONARY/CRITICAL CARE PHYSICIAN Formatting [...] who presented with dyspnea and cough to [facility] in [place], [place]. She was found to have a [...] breath so presented to the ED in [place], [place] and then was transferred here. She [...] mass. Elizabeth Alves, Pulmonary/Critical Care Pager # [phone] 11/13/2017 Associated attestation - Akash Winn MD - 11/13/2017 10:54 PM BEAM DYER RECESSED VAT Formatting of this note may be different [...] Emilee Camargo MD - 11/10/2017 4:00 PM BEAM DYER RECESSED VAT Associated Order(s): CONSULT CARDIOTHORACIC SURGERY PHYSICIAN Formatting of this note may be different from the original. CTS CONSULT Date of Service: 11/10/2017 Requesting Physician: Kenya Ramey MD Consulting Physician: Leyla Lopez MD Consult Performed By: Emilee Camargo MD HPI: Mrs. Jay is a 72 y/o F who presented to [facility] in [place], [place], for shortness of breath and a nonproductive cough. 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 She was transferred to [facility] for further workup. She is currently admitted [...] Leyla Lopez MD - 11/11/2017 8:53 AM BEAM DYER RECESSED VAT Formatting of this note may be different from the original. ATTESTATION I personally performed the zapata portions of the E/M visit, discussed case with resident and concur with resident documentation of history, physical exam, assessment, and treatment plan unless otherwise noted. Staff name: Leyla Lopez MD Date: 11/11/2017 * Bette Kurtz MD - 11/09/2017 10:37 AM BEAM DYER RECESSED VAT Associated Order(s): CONSULT GASTROENTEROLOGY PHYSICIAN Formatting of [...] (pending final pathology work-up), was transferred from [facility] in [place], [place] to [facility] for worsening shortness of breath and increase [...] (pending final pathology work-up), was transferred from [facility] in [place], [place] to [facility] for worsening shortness of breath and increase [...] Arellano MD Gastroenterology & Hepatology Fellow Pager [phone] * Debora Hernandez, MARIXA - 11/09/2017 7:33 AM BEAM DYER RECESSED VAT Associated Order(s): CONSULT ONCOLOGY PHYSICIAN Formatting of [...] spindle cell neoplasm [pending outside consultation with [facility] block- report indicates suspicion for low grade [...] 72 y.o. female admitted in transfer from [place], [place] for CTS evaluation. Patient has newly [...] FINAL 11/09/2017 Pertinent radiology reviewed. Debora Hernandez, ELECTRICAL WIRER [phone] Associated attestation - Alvin Fink MD - 11/09/2017 5:29 PM BEAM DYER RECESSED VAT Attestation by Dr. Fink: I saw this [...] and therapeutic thoracentesis. Outside path review from [facility] arrived this pm - possibly a low [...] - Jeny Carson - 11/16/2017 9:48 AM BEAM DYER RECESSED VAT Case Management Progress Note NAME:Jonathon Jay : [...] ? Medication Needs ? Financial Medicare and [facility] ? Legal Legal: DPOA & Advance Directives [...] No ? Discharge Disposition Jeny Carson LMSW [phone] (phone) [phone] (pager) * Case Mgmt DC Plan - Lisa Jurado RN - 11/16/2017 9:11 AM BEAM DYER RECESSED VAT Formatting of this note may be different from the original. Case Management Progress Note NAME:Jonathon Jay : AGE: 72 y.o. ADMISSION DATE: 11/09/2017 DAYS ADMITTED: LOS: 7 days Todays Date: 11/16/2017 Plan Discharge planning Interventions ? Support Support: Pt/Family Updates re:POC or DC Plan ? Info or Referral Patient has her CPAP through [facility] in [place]. [phone] Fax No oxygen PARALEGAL SUPERVISOR. ? Discharge Planning Spoke with patient Patient [...] Disposition Latrell Jurado RN MSN ONC Nurse Label Machine Operator Pg [phone] Durable Medical Equipment No service has been selected for the patient. [facility] Destination No service has been selected for the patient. Home Care No service has been selected for the patient. Dialysis/Infusion No service has been selected for the patient. * Anesthesia Post Op Day 1 - Amadou Beard DO - 11/15/2017 7:38 AM BEAM DYER RECESSED VAT Formatting of this note may be different [...] - Shyanne Gonzalez - 11/14/2017 1:16 PM BEAM DYER RECESSED VAT Formatting of this note may be different [...] been selected for the patient. Shyanne Gonzalez, [facility] [place] *[id number] * Anesthesia Post Op Day 1 - Amadou Beard DO - 11/13/2017 7:50 AM BEAM DYER RECESSED VAT Formatting of this note may be different [...] Ely Mclaughlin RN - 11/11/2017 5:15 PM BEAM DYER RECESSED VAT Problem: Discharge Planning Goal: Participation in plan of care Outcome: Goal Ongoing Pt updated on plan of care. No plans to d/c at this time. Problem: Respiratory Impairment (Non-Ventilated Patient) Goal: Effective gas exchange Outcome: Goal Ongoing Pt on 2L NC. * Case Mgmt DC Plan - Shyanne Gonzalez - 11/09/2017 3:27 PM BEAM DYER RECESSED VAT Case Management Admission Assessment NAME:Jonathon Jay : [...] [facility]]. Patient presented to [facility] in [place], [place] for shortness of breath and dry cough, she was found to have increased right-sided pleural effusion and atelectasis on CT chest without contrast." Patient Address/Phone [address] [address] (home) Emergency Contact Extended Emergency Contact Information Primary Emergency Contact: Becky Griffiths Address: [address] Mobile Relation: Daughter Preferred language: FRISIAN Healthcare Directive Pt does not have a [...] Primary Insurance: Medicare Secondary Insurance: Commercial insurance ([facility]) Additional Coverage: RX ([employer] and [employer]. Pt manages her own medications and is able to afford her Rx) ? Source of Income Source Of Income: Other nursing home income ? Financial Assistance Needed? none Psychosocial Needs ? Mental Health Mental Health History: No ? Substance Use History Substance Use History Screen: No ? Other none Current/Previous Services ? PCP Tad Campbell, , ? Pharmacy [facility] [address] [place] [phone] ? Durable Medical Equipment Durable Medical Equipment [...] ? Outpatient Therapy PT: No OT: No TUGBOAT DISPATCHER: No ? [facility] Facility/Custodial SNF: No NH: No ? Inpatient Rehab IPR: No ? [facility] LTACH: No ? Acute Hospital Stay Acute Hospital Stay: In the past Shyanne Gonzalez [facility] [place] *[id number] * Procedures (Immed Post or Bedside) - Amadou Zeng MD - 11/09/2017 10:38 AM BEAM DYER RECESSED VAT Procedure Note Procedures Immediate Post Procedure Note [...] Faviola Serrato RN - 11/09/2017 5:22 AM BEAM DYER RECESSED VAT Problem: Discharge Planning Goal: Participation in plan [...] IV THERAPY TEAM STAT 11/14/2017 12:18 PM BEAM DYER RECESSED VAT ESOPHAGOGASTRODUODENOSCOP 11/12/2017 Mediastinal mass Y ENDOSCOPIC ULTRASOUND 5:57 PM BEAM DYER RECESSED VAT CONSULT IV THERAPY TEAM Routine 11/12/2017 9:26 AM BEAM DYER RECESSED VAT CONSULT IV THERAPY TEAM STAT 11/09/2017 5:01 AM BEAM DYER RECESSED VAT in this encounter Results * PROCEDURE RECORD-SCAN [...] questions. Specimen Performing Laboratory Blood MAIN LAB [address] [place] [address] * PHOSPHORUS (11/17/2017 3:35 AM) Component Value Ref Range Phosphorus 3.9 2.0 - 4.0 MG/DL Specimen Performing Laboratory Blood MAIN LAB [address] [place], [place] [id number] * MAGNESIUM (11/17/2017 3:35 AM) Component Value Ref Range Magnesium 2.0 1.6 - 2.6 mg/dL Specimen Performing Laboratory Blood MAIN LAB [address] [place] [id number] * CBC AND DIFF (11/17/2017 3:35 AM) [...] Specimen Performing Laboratory Blood MAIN LAB [address] [place] [address] * COMPREHENSIVE METABOLIC PANEL (11/16/2017 5:34 AM) [...] Specimen Performing Laboratory Blood MAIN LAB [address] [place] [address] * PHOSPHORUS (11/16/2017 5:34 AM) Component Value Ref Range Phosphorus 3.8 2.0 - 4.0 MG/DL Specimen Performing Laboratory Blood MAIN LAB [address] [place] [address] * MAGNESIUM (11/16/2017 5:34 AM) Component Value Ref Range Magnesium 2.1 1.6 - 2.6 mg/dL Specimen Performing Laboratory [facility] MA[facility] [address] [place] [address] * CBC AND DIFF (11/16/2017 5:34 AM) [...] Performing Laboratory Blood [facility] [address] [place] [address] * COMPREHENSIVE METABOLIC PANEL (11/15/2017 2:35 AM) [...] Specimen Performing Laboratory [facility] MAIN [facility] [address] [place] [address] * PHOSPHORUS (11/15/2017 2:35 AM) Component Value Ref Range Phosphorus 5.0 (H) 2.0 - 4.0 MG/DL Specimen Performing Laboratory [facility] MA[facility] [address] [place] [address] * MAGNESIUM (11/15/2017 2:35 AM) Component Value Ref Range Magnesium 2.2 1.6 - 2.6 mg/dL Specimen Performing Laboratory [facility] MA[facility] [address] [place] [address] * CBC AND DIFF (11/15/2017 2:35 AM) [...] Specimen Performing Laboratory [facility] [address] [place] [address] * CBC AND DIFF (11/14/2017 6:12 PM) [...] Specimen Performing Laboratory [facility] [address] [place] [address] * COMPREHENSIVE METABOLIC PANEL (11/14/2017 6:12 PM) [...] Specimen Performing Laboratory [facility] MA[facility] [address] [place] [address] * MAGNESIUM (11/14/2017 6:12 PM) Component Value Ref Range Magnesium 2.1 1.6 - 2.6 mg/dL Specimen Performing Laboratory [facility] [address] [place] [address] * PHOSPHORUS (11/14/2017 6:12 PM) Component Value Ref Range Phosphorus 4.5 (H) 2.0 - 4.0 MG/DL Specimen Performing Laboratory [facility] [address] [place] [address] * PTT (APTT) (11/14/2017 6:12 PM) Component Value Ref Range APTT 27.7 21.0 - 39.0 SEC Specimen Performing Laboratory [facility] [address] [place] [address] * PROTIME INR (PT) (11/14/2017 6:12 PM) Component Value Ref Range INR 1.2 0.8 - 1.2 Specimen Performing Laboratory [facility] [address] [place] [address] * BRONCHOSCOPY (11/14/2017 2:52 PM) Component Value Ref Range Provation Report Patient Name: Jonathon Jay Procedure Date: 11/14/2017 2:52 PM CSN: [id number] Date of : 1945 Gender: Female Attending Physician: Kaushik Gutierrez MD Procedure:Bronchoscopy Indications:Mediastinal mass Providers:Kaushik Gutierrez MD (Doctor), Ting Stafford, RN (Nurse), Gloria Day, RN (Nurse), Oscar No, Security Expert (Techn ician) Referring Physician:Leyla Lopez Medications:Tetricaine 0.25%/Epinephrine [...] NEG Specimen Performing Laboratory [facility] [address] [place] [address] * PROTIME INR (PT) (11/14/2017 12:30 PM) Component Value Ref Range INR 1.2 0.8 - 1.2 Specimen Performing Laboratory Blood MAIN [facility] [address] [place] [address] * FINE NEEDLE ASPIRATE (FNA) (11/14/2017 9:04 AM) Component Value Ref Range Cytology [email or web address] Department of Pathology and Laboratory Medicine [address] [place] [address] Surgical Pathology Office:[phone]:[phone] CYTOLOGY REPORT NAME: JONATHON JAY SURG PATH #: [id number] MR #: [id number] ALT ID #: BILLING #: [id number] LOCATION: DATE OF PROCEDURE: 11/14/2017 AGE:72 SEX: F DATE RECEIVED: 11/15/2017 : 1945TIME RECEIVED:09:04 PHYSICIAN: KAUSHIK GUTIERREZ [facility] DATE OF REPORT: 11/16/2017 COPY TO: KNEYA RAMEY MD BRICE J ZOGLEMAN, MD CROSSER, MICHAEL [facility] DATE OF PRINTIN11/16/2017 Material Received: A: FNA Lung-Right Mainstem History: 72 year old female, history of large mediastinal mass. Gross Description: ( 4 DQ direct smear, 4 Pap direct smear, 1 cell block) Rapid determination of adequacy was performed by the metal mockup maker, TANNER, on Diff-Quik stained slide(s). Pass one, two and three not adequate for evaluation.Pass four adequate for evaluation.Pass five, six, and seven into RPMI. ################################################## ###################### Final Diagnosis: A. 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 See comment. Please also see concurrent cytology report ([id number]). Comment: Extensive crush artifact is present. Immunohistochemical stains for figueredo-cytokeratin, CAM5.2, CD34, desmin, TTF-1, PAX-8, SOX-10, calretinin, and Ki-67 performed on the cell block are non-contributory due to a lack of lesional tissue. A biopsy/more extensive sampling is recommended for a definitive diagnosis. Pursuant to the Central Supply Manager Program at the [facility] Pathology Department, selected slides from this [...] Performing Laboratory Blood [facility] MAIN [facility] [address] [place] [address] * CBC AND DIFF (11/14/2017 5:34 AM) [...] Specimen Performing Laboratory Blood MAIN [facility] [address] [place] [address] * CHEST 2 VIEWS (11/13/2017 7:00 AM) [...] M.D. on 11/13/2017 11:59 AM. Dictated by Tnai Browning M.D. on 11/13/2017 8:59 AM. Narrative [...] Interface, Radiant Results - 11/13/2017 12:02 PM BEAM DYER RECESSED VAT Procedure: CHEST 2 VIEWS Clinical Indication: Cough. [...] Specimen Performing Laboratory Blood MAIN LAB [address] [place] [address] * CBC AND DIFF (11/13/2017 6:02 AM) [...] Specimen Performing Laboratory Blood MAIN [facility] [address] [place] [address] * ENDOSCOPIC ULTRASOUND REPORT (11/12/2017 6:12 PM) Component Value Ref Range Provation Report Patient Name: Pierre Garner Procedure Date: 11/12/2017 6:12 PM CSN: [id number] Date of : 1945 Gender: Female Attending Physician: Michael Wade MD Procedure: Upper EUS Indications:Gorman spected mass in mediastinum on chest CT Providers: Michael Wade MD (Doctor), Truong Burrell MD (Fellow), Miri Hairston (Nurse), Randi Levin, Security Expert (Security Expert) Referring Physician:Referral Self Medications:Mo nitored Anesthesia Care [...] minutes 23 seconds Procedure Code(s):--- Professional --- 45877, Esophagogastroduodenoscopy, flexible, transoral; with endoscopic ultrasound examination, including the esophagus, stomach, and either the duodenum or a surgically altered stomach where the jejunum is examined distal to the anastomosis Diagnosis Code(s):--- Professional --- J98.59, Other diseases of mediastinum, not elsewhere classified R93.8, Abnormal findings on diagnostic imaging of other specified body structures CPT copyright 2016 [employer]. All rights reserved. The codes documented in this report are preliminary and upon director targeted marketing review may be revised to meet current [...] Specimen Performing Laboratory Blood MAIN LAB [address] [place] [address] * CBC AND DIFF (11/12/2017 5:14 AM) [...] Specimen Performing Laboratory Blood MAIN [facility] [address] [place] [address] * COMPREHENSIVE METABOLIC PANEL (11/11/2017 5:33 AM) [...] Performing Laboratory Blood [facility] [address] [place] [address] * CBC AND DIFF (11/11/2017 5:33 AM) [...] Specimen Performing Laboratory Blood MAIN [facility] [address] [place] [address] * COMPREHENSIVE METABOLIC PANEL (11/10/2017 4:36 AM) [...] Specimen Performing Laboratory Blood MAIN [facility] [address] [place] [address] * CBC AND DIFF (11/10/2017 4:36 AM) [...] Performing Laboratory [facility] [address] [place] [address] * NON-FLORIST'S DECORATOR CYTOLOGY (BODY FLUIDS/TISSUE) (11/09/2017 2:22 PM) Component Value Ref Range Cytology [email or web address] Department of Pathology and Laboratory Medicine [address] [place] [address] Surgical Pathology Office:[phone]:[phone] CYTOLOGY REPORT NAME: JONATHON JAY CYTOLOGY #: [id number] MR #: [id number] ALT ID #: [id number] #: [id number] LOCATION: DATE OF PROCEDURE: 11/09/2017 AGE:72 SEX: [...] Interface, Radiant Results - 11/09/2017 5:41 PM BEAM DYER RECESSED VAT PET/CT NECK, CHEST, ABDOMEN AND PELVIS CLINICAL [...] effusion MEDICATIONS: 5 mL subcutaneous 2% lidocaine CUSTOMS BROKER: Matthew Bejarano M.D., Amadou Zeng M.D. The [...] Interface, Radiant Results - 11/12/2017 10:39 AM BEAM DYER RECESSED VAT Ultrasound-guided Thoracentesis CLINICAL INDICATION: Symptomatic pleural effusion MEDICATIONS: 5 mL subcutaneous 2% lidocaine CUSTOMS BROKER: Matthew Bejarano M.D., Amadou Zeng M.D. The [...] pleural effusion. No appreciable pneumothorax. Finalized by AILSSON FORD M.D. on 11/09/2017 12:24 PM. Dictated [...] Interface, Radiant Results - 11/09/2017 12:28 PM BEAM DYER RECESSED VAT Chest, single view with inspiration and expiration [...] Interface, Radiant Results - 11/09/2017 5:47 PM BEAM DYER RECESSED VAT CHEST IMMEDIATE POST PROCEDURE INSP/EXP Clinical Indication: [...] Specimen Performing Laboratory Thoracentesis Fluid MAIN LAB [address] [place] [address] * PLEURAL FLUID TOTAL PROTEIN (11/09/2017 10:36 AM) Component Value Ref Range Pleural Fluid Total 3.6 (H)Comment: Serum to pleural fluid protein <1.1 g/ dL Protein gradient >3.1 g/dL is suggestive of an exudate Specimen Performing Laboratory Pleural fluid - [facility] LAB Thoracentesis Fluid [address] [place] [address] * PLEURAL FLUID PH (11/09/2017 10:36 AM) Component Value Ref Range Pleural Fluid Ph 7.45 (L) 7.60 - 7.66 Specimen Performing Laboratory Pleural fluid - [facility] Thoracentesis Fluid [address] [place] [address] * PLEURAL FLUID LACTATE DEHYDROGENASE (11/09/2017 10:36 AM) Component Value Ref Range Pleural Fluid Lactate 398 (H)Comment: Higher levels suggestive of 67 - 140 U/L Dehydrogenase exudate Specimen Performing Laboratory Pleural fluid - [facility] Thoracentesis Fluid [address] [place] [address] * PLEURAL FLUID GLUCOSE (11/09/2017 10:36 AM) Component Value Ref Range Pleural Fluid Glucose 102 (H) 70 - 100 mg/dL Comment: Glucose <60 mg/dL associated withparapneumonic effusion, tuberculosis, malignancy, empyema, and rheumatoid disease Specimen Performing Laboratory Pleural fluid - MAIN LAB Thoracentesis Fluid [address] [place] [address] * PLEURAL FLUID ALBUMIN (11/09/2017 10:36 AM) Component Value Ref Range Pleural Fluid Albumin 2.4Comment: Pleural fluid albumin gradient >1.2 g/ dL g/dL is suggestive of an exudate Specimen Performing Laboratory Pleural fluid - [facility] Thoracentesis Fluid [address] [place] [address] * CULTURE-WOUND/TISSUE/FLUID(AEROBIC ONLY)W/SENSITIVITY (11/09/2017 10:36 AM) Component Value Ref Range Battery Name ROUTINE CULTURE Specimen Description THORACENTESIS FLUID Special Requests NONE Direct Gram Stain FEW NEUTROPHILS NO ORGANISMS SEEN Culture NO GROWTH 5 DAYS Report Status FINAL 11/14/2017 Specimen Performing Laboratory Pleural fluid - [facility] LAB Thoracentesis Fluid [address] [place] [address] * CULTURE-ANAEROBIC (11/09/2017 10:36 AM) Component Value Ref Range Battery Name ANAEROBE CULTURE Specimen Description THORACENTESIS FLUID Special Requests NONE Culture NO ANAEROBES ISOLATED Report Status FINAL 11/14/2017 Specimen Performing Laboratory Pleural fluid - [facility] LAB Thoracentesis Fluid [address] [place] [address] * CELL COUNT W/DIFF-FLUIDS (11/09/2017 10:36 AM) [...] report. Specimen Performing Laboratory Pleural fluid - [facility] Thoracentesis Fluid [address] [place] [address] * LEGIONELLA ANTIGEN URINE,RAN (11/09/2017 7:22 AM) Component Value Ref Range Battery Name LEGIONELLA URINE ANTIGEN Specimen Description URINE Special Requests NONE Antigen NEGATIVE Report Status FINAL 11/09/2017 Specimen Performing Laboratory Urine [facility] [address] [place] [address] * STREPTOCOCCUS PNEUMO AG, URINE (11/09/2017 7:22 AM) Component Value Ref Range Battery Name STREP PNEUMO AG, UR Specimen Description URINE Special Requests NONE Antigen NEGATIVE Report Status FINAL 11/09/2017 Specimen Performing Laboratory Urine MAIN LAB [address] [place], [place] [id number] * RVP VIRAL PANEL PCR (11/09/2017 3:05 [...] Specimen Performing Laboratory Nasopharyngeal Swab MAIN LAB [address] [place], [place] [address] * BNP (B-TYPE NATRIURETIC PEPTI) (11/09/2017 2:55 AM) Component Value Ref Range B Type Natriuretic 28.0 0 - 100 PG/ML Peptide Specimen Performing Laboratory Blood MAIN LAB [address] [place], [place] [address] * CULTURE-BLOOD W/SENSITIVITY (11/09/2017 2:55 AM) Component Value Ref Range Battery Name BLOOD CULTURE Specimen Description BLOOD RIGHT FA Special Requests NONE Culture NO GROWTH 5 DAYS Report Status FINAL 11/15/2017 Specimen Performing Laboratory Blood MAIN LAB [address] [place] [address] * CULTURE-BLOOD W/SENSITIVITY (11/09/2017 2:55 AM) Component Value Ref Range Battery Name BLOOD CULTURE Specimen Description BLOOD LEFT ANTECUBITAL Special Requests NONE Culture NO GROWTH 5 DAYS Report Status FINAL 11/15/2017 Specimen Performing Laboratory Blood MAIN LAB [address] [place] [address] * TSH WITH FREE T4 REFLEX (11/09/2017 2:55 AM) Component Value Ref Range TSH 1.008 0.35 - 5.00 MCU/ML Specimen Performing Laboratory Blood MAIN LAB [address] [place], [place] [address] * TROPONIN-I (11/09/2017 2:55 AM) Component Value Ref Range Troponin-I 0.01 0.0 - 0.05 NG/ML Specimen Performing Laboratory Blood MAIN LAB [address] [place] [address] * COMPREHENSIVE METABOLIC PANEL (11/09/2017 2:55 AM) [...] Specimen Performing Laboratory Blood MAIN LAB [address] [place] [address] * PROTIME INR (PT) (11/09/2017 2:55 AM) Component Value Ref Range INR 1.1 0.8 - 1.2 Specimen Performing Laboratory Blood MAIN LAB [address] [place] [address] * CBC AND DIFF (11/09/2017 2:55 AM) [...] Performing Laboratory Blood [facility] MAIN [facility] [address] [place] [address] * GENERAL RAD CHEST EXTERNAL IMAGING (11/08/2017 [...] mg, Oral, EVERY 6 HOURS PRN, 06:23 BEAM DYER RECESSED VAT Starting Sun11/09/17 at 0218, Until 11/17/17 at 1909, Pain non-opioid: may be used alone or in combination with opioid analgesia, TOTAL ACETAMINOPHEN DOSE NOT TO EXCEED 4GM DAILY Given 11/13/2017 650 mg 12:33 BEAM DYER RECESSED VAT Given 11/13/2017 650 mg 20:01 BEAM DYER RECESSED VAT enalapril (VASOTEC) tablet 10 mg Given 11/16/2017 10 mg 10 mg, Oral, DAILY, First dose on Sun 08:01 BEAM DYER RECESSED VAT 11/16/17 at 0900, Until Discontinued Given 11/17/2017 10 mg 08:55 BEAM DYER RECESSED VAT hydroCHLOROthiazide (HYDRODIURIL) tablet Given 11/16/2017 12.5 mg 12.5 mg 08:01 BEAM DYER RECESSED VAT 12.5 mg, Oral, DAILY, First dose on Sun11/16/17 at 0900, Until Discontinued Given 11/17/2017 12.5 mg 08:55 BEAM DYER RECESSED VAT levothyroxine (SYNTHROID) tablet 137 mcg Given 11/15/2017 137 mcg 137 mcg, Oral, DAILY 30MIN BEFORE 08:18 BEAM DYER RECESSED VAT BREAKFAST, First dose on Sun11/09/17 at 0630, Until Discontinued, Give 1 hour before a meal. If patient is receiving tube feedings, hold tube feed 1hr before and 1hr after dose. Given 11/16/2017 137 mcg 07:52 BEAM DYER RECESSED VAT Given 11/17/2017 137 mcg 06:13 BEAM DYER RECESSED VAT nystatin (MYCOSTATIN) topical cream Given 11/10/2017 Topical, TWICE DAILY PRN, Starting Sat 21:26 BEAM DYER RECESSED VAT 11/10/17 at 2055, Until 11/17/17 at 1909, Rash, Right Breast Given 11/13/2017 20:02 BEAM DYER RECESSED VAT Given 11/13/2017 20:04 BEAM DYER RECESSED VAT triamcinolone acetonide (KENALOG) 0.1 % Given 11/15/2017 topical ointment 20:18 BEAM DYER RECESSED VAT Topical, TWICE DAILY, First dose on 11/11/17 at 1100, Until Discontinued, Apply to right chest Given 11/16/2017 10:00 BEAM DYER RECESSED VAT Given 11/17/2017 06:13 BEAM DYER RECESSED VAT in this encounter
--- OUTSIDE RECORDS SUMMARY | 2018-01-04 13:09 | XMS REPORT | Encounter Summary ---
Author Author [facility] Organization [facility] Address Unknown Phone Unavailable Care Team Providers Care Armature Balancer Name Role Phone PCP Unavailable Encounter Details Date Type Department Care Team Description 11/08/2017 Hospital [facility] Encounter Hospital Radiology [address] [place] [address] Social History Tobacco Use Types [...]
--- OUTSIDE RECORDS SUMMARY | 2018-01-04 13:09 | XMS REPORT | Encounter Summary ---
Author Author [facility] Organization [facility] Address Unknown Phone Unavailable Care Team Providers Care Floor Scrubber Name Role Phone Tad Campbell MD PCP Encounter Details Date Type Department Care Team Description 11/09/2017 Procedure Pass 63 - TICU [address] [place] [address] Social History Tobacco Use Types Packs/Day Years [...]
--- OUTSIDE RECORDS SUMMARY | 2018-01-04 13:09 | XMS REPORT | Encounter Summary ---
Author Author [facility] Organization [facility] Address Unknown Phone Unavailable Care Team Providers Care Marketing And Communications Officer Name Role Phone PCP Unavailable Encounter Details Date Type Department Care Team Description 11/08/2017 Hospital [facility] Encounter Hospital Radiology [address] [place] [address] Social History Tobacco Use Types [...]
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
[2018-01-04] MEDS ORDERED: PATIENT MAY USE OWN MEDS, ALL PO SCH (13:15)
[2018-01-04] MEDS ORDERED: FURO20TA4 PO (13:25)
[2018-01-04] MEDS ORDERED: ONDA8TAB12 PO (13:25)
[2018-01-04] MEDS ORDERED: CA C1TAB75 PO (13:25)
[2018-01-04] MEDS ORDERED: ESTR0.5T PO (13:25)
[2018-01-04] MEDS ORDERED: SULF-222 PO (13:25)
[2018-01-04] MEDS ORDERED: MULT-166 PO (13:25)
[2018-01-04] MEDS ORDERED: DOXY100C2 PO (13:25)
[2018-01-04] MEDS ORDERED: PROC10TA10 PO (13:25)
[2018-01-04] MEDS ORDERED: DEXA4TAB PO (13:27)
[2018-01-04] MEDS ORDERED: DOCU-143 PO (13:27)
[2018-01-04] MEDS ORDERED: LEVO137T2 PO (13:27)
[2018-01-04] MEDS ORDERED: LOPE-134 PO (13:27)
--- NOTE | 2018-01-04 13:28 | History & Physical-Hospitalist ---
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 Complaining of increasing redness pain and swelling of leg. Treated with bactrim starting 4 days ago. Switched to Doxy the next day because of GI side effects. Seen in Onc clinic yesterday and given 1 dose Vanc but today there is increased erythema and pain. Venous doppler is negative for DVT. Patient is admitted for IV antibiotics. Her last dose of chemotherapy was approximately 2 weeks ago. The time of my interview today patient notes that the erythema and swelling is about the same as it was yesterday and is no worse. She is tolerating the vancomycin well except for some mild diarrhea. Her shortness of breath is about the same. Source: patient, RN/MD Exam Limitations: no limitations Date Seen 01/05/18 Time Seen by Provider: 09:00 Attending Physician Isabella Hunt MD PCP Sumanth Zhao MD Referring Physician Date of Admission Jan 04, 2018 at 12:50 Home Medications & Allergies Home Medications Reviewed patient Home Medication Reconciliation performed by pharmacy medication reconciliations educational technician and/or nursing. Patients Allergies have been reviewed. Allergies Allergies Coded Allergies amoxicillin (Unverified Allergy, Unknown, 11/28/17) clavulanic acid (Unverified Allergy, Unknown, 11/28/17) meperidine (Verified Allergy, Unknown, RECEIVED FENTANYL IN SURGERY, 02/09/16) PT STATES "DEMEROL MAKES ME DIZZY AND TURNS ME ANDERSON" Uncoded Allergies TAPE ( Allergy, Unknown, 01/18/07) Past Zzhxjqp-Rzcxxk-Frnxad Hx Past Med/Social Hx: Reviewed Nursing Past Med/Soc Hx Patient Social History Marrital Status: single Employed/Student: retired Alcohol Use: Rarely Uses Smoking Status: Never a Smoker 2nd Hand Smoke Exposure: No Recent Hopitalizations: Yes Immunizations Up To Date Date of Pneumonia Vaccine: May 30, 2017 Date of Influenza Vaccine: Jun 10, 2017 Seasonal Allergies Seasonal Allergies: No Past Medical History Surgeries: Gallbladder, Hysterectomy, Thyroidectomy Respiratory: Tuberculosis (Positive PPD) Currently Using CPAP: No Currently Using BIPAP: No Cardiac: Hypertension Reproductive: No Musculoskeletal: Arthritis, Chronic Back Pain Cancer: Lung What Type of Treatment Did You: Chemotherapy History of Blood Disorders: No Family History Arthritis G8 SISTER Kidney disease G8 SISTER Neoplasm 19 FATHER (lung/colon/ liver ca) 19 MOTHER (leukemia) Cancer Review of Systems Constitutional: malaise, weakness EENTM: other (Dry mouth) Respiratory: dyspnea on exertion, short of breath Cardiovascular: no symptoms reported Gastrointestinal: diarrhea Genitourinary: no symptoms reported Musculoskeletal: muscle pain Skin: rash Psychiatric/Neurological: No Symptoms Reported Physical Exam Physical Exam Vital Signs Vital Signs - First Documented 01/04/18 01/04/18 13:00 16:46 Temp 97.7 Pulse 81 Resp 17 B/P (MAP) 117/59 (78) Pulse Ox 96 O2 Delivery Nasal Cannula O2 Flow Rate 2.00 Capillary Refill : General Appearance: Chronically ill, Other (On oxygen with chemotherapy alopecia) HEENT: Other (Dry oral mucosa) Neck: Full Range of Motion, Normal Inspection, Non Tender, Supple Respiratory: No Accessory Muscle Use, Decreased Breath Sounds (Right lung) Cardiovascular: Regular Rate, Rhythm, No Gallop, No Murmur Gastrointestinal: Normal Bowel Sounds, No Organomegaly, Non Tender, Soft Rectal: Deferred Back: Normal Inspection, No CVA Tenderness Extremity: Calf Tenderness, Inflammation (Right calf), Pedal Edema Neurologic/Psychiatric: Alert, Oriented x3, No Motor/Sensory Deficits, Normal Mood/Affect Skin: Erythema, Petechia (Right leg), Rash Lymphatic: No Adenopathy Results Results/Procedures Labs Laboratory Tests 01/05/18 06:07 Patient resulted labs reviewed. Imaging: Reviewed Imaging Films (Reviewed 2016 chest x-ray compared to recent) , Reviewed Imaging Report (Reviewed venous Doppler) Assessment/Plan Admission Diagnosis Cellulitis -failed outpatient treatment Admission Status: Inpatient Order (span 2 midnights) Reason for Inpatient Admission: Immunocompromised patient on chemotherapy Assessment and Plan Cellulitis most likely strep organism day number 2 vancomycin 2. Spindle cell neoplasm 3. Hypertension 4. Hypothyroidism 5. Leukemoid reaction with white count of 43,000 Copy Copies To 1: SUMANTH ZHAO MD Copies To 2: AUSTIN LEON MD, KATHLEEN M MD Jan 04, 2018 13:28
[2018-01-04] MEDS ORDERED: CALC-6 PO (13:40)
[2018-01-04] MEDS: ENOXAPARIN 40 MG/0.4 ML (LOVENOX) SYR SC SCH (14:28)
[2018-01-04] MEDS ORDERED: NON-FORMULARY MEDICATION 1 EA EA (Oxycodone HCl 5 MG) PO PRN (15:30)
[2018-01-04] MEDS ORDERED: PROCHLORPERAZINE 10 MG TAB (COMPAZINE) PO PRN (15:30)
[2018-01-04] MEDS ORDERED: NON-FORMULARY MEDICATION 1 EA EA (Ondansetron HCl 8 MG) PO PRN (15:30)
[2018-01-04] MEDS ORDERED: DOCUSATE SODIUM 100 MG (COLACE) CAP PO PRN (15:30)
[2018-01-04] MEDS ORDERED: ONDANSETRON 8 MG (ZOFRAN) ORAL DISSOLVE TAB PO PRN (15:45)
[2018-01-04 16:46] VITALS: BP 117/59
[2018-01-04 20:00] VITALS: BP 115/64
[2018-01-04] MEDS: VANCOMYCIN INJECTION 1,250 MG in NS (IVPB) 250 ML IV SCH (21:00)
[2018-01-05] VITALS (7 sets, daily range): BP systolic 101–141; BP diastolic 57–68
[2018-01-05] MEDS: LEVOTHYROXINE 112 MCG (LEVOTHROID) TAB PO SCH (05:59)
[2018-01-05] MEDS: MULTIVIT W/MINERALS TAB (THERAGRAN M) PO SCH (05:59)
[2018-01-05] MEDS: LEVOTHYROXINE 25 MCG (LEVOTHROID) TAB PO SCH (05:59)
[2018-01-05 06:16] LABS: HEMOGLOBIN 9.2 G/DL (11.5-16.0); MEAN PLATELET VOLUME 9.5 FL (7.4-10.4); RED BLOOD COUNT 3.3 10^6/uL (4.35-5.85)
[2018-01-05 06:19] LABS: WHITE BLOOD COUNT 43.4 10^3/uL (4.3-11.0)
[2018-01-05 06:35] LABS: ALBUMIN 3.1 GM/DL (3.2-4.5); BILIRUBIN,TOTAL 0.4 MG/DL (0.1-1.0); CALCIUM 9.1 MG/DL (8.5-10.1); CREATININE SERUM 0.97 MG/DL (0.60-1.30); POTASSIUM 3.9 MMOL/L (3.6-5.0); TOTAL PROTEIN 5.4 GM/DL (6.4-8.2)
[2018-01-05] MEDS ORDERED: NON-FORMULARY MEDICATION 1 EA EA (Enalapril Maleate 10 MG) PO SCH (09:00)
[2018-01-05] MEDS ORDERED: NON-FORMULARY MEDICATION 1 EA EA (Hydrochlorothiazide 12.5 MG) PO SCH (09:00)
[2018-01-05] MEDS ORDERED: NON-FORMULARY MEDICATION 1 EA EA (Verapamil HCl (Verapamil ER) 240 MG) PO SCH (09:00)
[2018-01-05] MEDS ORDERED: NON-FORMULARY MEDICATION 1 EA EA (Levothyroxine Sodium 137 MCG) PO SCH (09:00)
[2018-01-05] MEDS: HYDROCHLOROTHIAZIDE 12.5 MG (HCTZ) CAP PO SCH (10:41)
[2018-01-05] MEDS: VERAPAMIL SR 240 MG (CALAN SR) TAB PO SCH (10:41)
[2018-01-05] MEDS: VANCOMYCIN INJECTION 1,250 MG in NS (IVPB) 250 ML IV SCH ×2 (10:41→21:07)
[2018-01-05] MEDS: ENALAPRIL 10 MG (VASOTEC) TAB PO SCH (10:42)
[2018-01-05] MEDS: FUROSEMIDE 20 MG (LASIX) TAB PO SCH (10:42)
[2018-01-05] MEDS: ENOXAPARIN 40 MG/0.4 ML (LOVENOX) SYR SC SCH (13:26)
[2018-01-06] VITALS: BP 103/56
[2018-01-06 04:00] VITALS: BP 133/74
[2018-01-06] MEDS: LEVOTHYROXINE 112 MCG (LEVOTHROID) TAB PO SCH (06:03)
[2018-01-06] MEDS: MULTIVIT W/MINERALS TAB (THERAGRAN M) PO SCH (06:03)
[2018-01-06] MEDS: LEVOTHYROXINE 25 MCG (LEVOTHROID) TAB PO SCH (06:03)
[2018-01-06 06:16] LABS: HEMOGLOBIN 9.2 G/DL (11.5-16.0); MEAN PLATELET VOLUME 9.4 FL (7.4-10.4); RED BLOOD COUNT 3.36 10^6/uL (4.35-5.85); RED CELL DISTRIBUTION WIDTH 20.5 % (10.0-14.5)
[2018-01-06 06:25] LABS: WHITE BLOOD COUNT 39.3 10^3/uL (4.3-11.0)
[2018-01-06 06:38] LABS: ALANINE AMINOTRANSFERASE 33 U/L (0-55); ALBUMIN 3.1 GM/DL (3.2-4.5); ALKALINE PHOSPHATASE 75 U/L (40-136); BILIRUBIN,TOTAL 0.4 MG/DL (0.1-1.0); BUN/CREATININE RATIO 17; CALCIUM 8.6 MG/DL (8.5-10.1); CARBON DIOXIDE 26 MMOL/L (21-32); CHLORIDE 103 MMOL/L (98-107); CREATININE SERUM 0.88 MG/DL (0.60-1.30); GFR ESTIMATED > 60; GLUCOSE 104 MG/DL (70-105); POTASSIUM 3.9 MMOL/L (3.6-5.0); SODIUM 140 MMOL/L (135-145); TOTAL PROTEIN 5.1 GM/DL (6.4-8.2)
[2018-01-06 08:05] VITALS: BP 134/62
[2018-01-06] MEDS: VERAPAMIL SR 240 MG (CALAN SR) TAB PO SCH (08:54)
[2018-01-06] MEDS: ENALAPRIL 10 MG (VASOTEC) TAB PO SCH (08:54)
[2018-01-06] MEDS: HYDROCHLOROTHIAZIDE 12.5 MG (HCTZ) CAP PO SCH (08:54)
[2018-01-06] MEDS: FUROSEMIDE 20 MG (LASIX) TAB PO SCH (08:55)
[2018-01-06] MEDS ORDERED: TROUGH ORDER-PHARMACY XX NR ×2 (09:00→21:00)
[2018-01-06] MEDS: VANCOMYCIN INJECTION 1,250 MG in NS (IVPB) 250 ML IV SCH (10:16)
--- NOTE | 2018-01-06 12:43 | Progress Note-Hospitalist ---
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 Complaining of increasing redness pain and swelling of leg. Treated with bactrim starting 4 days ago. Switched to Doxy the next day because of GI side effects. Seen in Onc clinic yesterday and given 1 dose Vanc but today there is increased erythema and pain. Venous doppler is negative for DVT. Patient is admitted for IV antibiotics. Her last dose of chemotherapy was approximately 2 weeks ago. The time of my interview today patient notes that the erythema and swelling is about the same as it was yesterday and is no worse. She is tolerating the vancomycin well except for some mild diarrhea. Her shortness of breath is about the same. Subjective/Events-last exam Patient notes that her leg is feeling better she has decreased heat and erythema. Review of Systems Neurological: Weakness Objective Exam Vital Signs Vital Signs Date Time Temp Pulse Resp B/P (MAP) Pulse Ox O2 Delivery O2 Flow Rate FiO2 01/06/18 08:05 98.0 94 18 134/62 (86) 92 Nasal Cannula 2.00 Capillary Refill : Less Than 3 Seconds General Appearance: WD/WN HEENT: Normal ENT Inspection Neck: Normal Inspection, Non Tender, Supple Respiratory: No Accessory Muscle Use, No Respiratory Distress, Crackles Cardiovascular: Regular Rate, Rhythm, No Gallop, No Murmur Gastrointestinal: Normal Bowel Sounds, Non Tender, Soft Rectal: Deferred Back: Normal Inspection, No CVA Tenderness, No Vertebral Tenderness Extremity: Pedal Edema Neurologic/Psychiatric: Alert, Oriented x3, No Motor/Sensory Deficits, Normal Mood/Affect Skin: Erythema, Rash Lymphatic: No Adenopathy Results/Procedures Lab Laboratory Tests 01/06/18 06:07 Patient resulted labs reviewed. Imaging: Reviewed Imaging Films (Reviewed 2016 chest x-ray compared to recent) , Reviewed Imaging Report (Reviewed venous Doppler) Assessment/Plan Assessment and Plan Assess & Plan/Chief Complaint Cellulitis most likely strep organism day number 3 vancomycin-improving with a high vancomycin trough 2. Spindle cell neoplasm 3. Hypertension 4. Hypothyroidism 5. Leukemoid reaction with white count down a little today Clinical Quality Measures DVT/VTE Risk/Contraindication: Risk Factor Score Per Nursin RFS Level Per Nursing on Admit: 4+=Very High ALEENA GAGE MD Jan 06, 2018 12:43
[2018-01-06] MEDS: ENOXAPARIN 40 MG/0.4 ML (LOVENOX) SYR SC SCH (13:49)
[2018-01-06 15:24] VITALS: BP 113/56
[2018-01-07] VITALS: BP 103/55
[2018-01-07] MEDS: LEVOTHYROXINE 112 MCG (LEVOTHROID) TAB PO SCH (06:02)
[2018-01-07] MEDS: MULTIVIT W/MINERALS TAB (THERAGRAN M) PO SCH (06:02)
[2018-01-07] MEDS: LEVOTHYROXINE 25 MCG (LEVOTHROID) TAB PO SCH (06:02)
[2018-01-07 06:11] LABS: HEMOGLOBIN 9.5 G/DL (11.5-16.0)
[2018-01-07 06:12] LABS: BASOPHILS # (AUTO) 0.3 10^3/uL (0.0-0.1); BASOPHILS % (AUTO) 1 % (0-10); EOSINOPHILS # (AUTO) 0.1 10^3/uL (0.0-0.3); EOSINOPHILS % (AUTO) 0 % (0-10); HEMATOCRIT 30 % (35-52); LYMPHOCYTES # (AUTO) 3.2 X 10^3 (1.0-4.0); LYMPHOCYTES % (AUTO) 10 % (12-44); MEAN CORPUSCULAR HEMOGLOBIN 28 PG (25-34); MEAN CORPUSCULAR HGB CONC 32 G/DL (32-36); MEAN CORPUSCULAR VOLUME 87 FL (80-99); MEAN PLATELET VOLUME 9.4 FL (7.4-10.4); MONOCYTES # (AUTO) 0.9 X 10^3 (0.0-1.0); MONOCYTES % (AUTO) 3 % (0-12); NEUTROPHILS % (AUTO) 86 % (42-75); PLATELET COUNT 206 10^3/uL (130-400); RED CELL DISTRIBUTION WIDTH 21.2 % (10.0-14.5)
[2018-01-07 06:28] LABS: WHITE BLOOD COUNT 32.5 10^3/uL (4.3-11.0)
[2018-01-07 06:56] LABS: ALANINE AMINOTRANSFERASE 37 U/L (0-55); ALKALINE PHOSPHATASE 74 U/L (40-136); BILIRUBIN,TOTAL 0.4 MG/DL (0.1-1.0); BUN/CREATININE RATIO 16; CALCIUM 8.3 MG/DL (8.5-10.1); CARBON DIOXIDE 28 MMOL/L (21-32); CHLORIDE 103 MMOL/L (98-107); GFR ESTIMATED > 60; GLUCOSE 99 MG/DL (70-105); POTASSIUM 3.7 MMOL/L (3.6-5.0); SODIUM 141 MMOL/L (135-145); TOTAL PROTEIN 5.3 GM/DL (6.4-8.2)
[2018-01-07 08:00] VITALS: BP 117/63
[2018-01-07] MEDS: HYDROCHLOROTHIAZIDE 12.5 MG (HCTZ) CAP PO SCH (09:04)
[2018-01-07] MEDS: FUROSEMIDE 20 MG (LASIX) TAB PO SCH (09:04)
[2018-01-07] MEDS: ENALAPRIL 10 MG (VASOTEC) TAB PO SCH (09:04)
[2018-01-07] MEDS: VERAPAMIL SR 240 MG (CALAN SR) TAB PO SCH (09:04)
--- NOTE | 2018-01-07 13:42 | Progress Note-Hospitalist ---
Progress Note Progress Notes/Assess & Plan Date Seen 01/07/18 Time Seen by Provider: 13:37 Assessment & Plan The patient is a 72-year-old white female known to me. She was found to have a mass in late October which was needle biopsied. The fear had been that this was a sarcoma. The specimen was sent to the [facility] for consultation and was reported out as a spindle cell malignancy. She was subsequently sent to the [facility] and started on treatment. She developed a red tender warm process on her right lower leg late last week. This was sent to be infectious and she was admitted for treatment of cellulitis. This has responded well to treatment. She states that it was originally a fiery red in color and quite warm. The leg is now pink with the discoloration receding. The swelling is less and the tenderness has gone. Physical exam: She is alert and oriented. Lungs are clear to auscultation. CV is regular without murmur. The right lower extremity shows a pink process without streaking going from the malleoli to just below the tibial tuberosity. The area is warm but not hot. The leg is only slightly larger than the left calf. Impression: Cellulitis improving. 2.recent diagnosis spindle cell malignancy Plan: Discharge. Medications and activities are as on the discharge sequence ABRAHAN BERMUDEZ MD Jan 07, 2018 13:42
[2018-01-07] MEDS: ENOXAPARIN 40 MG/0.4 ML (LOVENOX) SYR SC SCH (13:43)
[2018-01-07] MEDS ORDERED: CEFD300C3 PO (13:44)
--- NOTE | 2018-01-07 13:47 | Discharge Instructions ---
Discharge Instructions Patient Instructions Patient Instructions: Take your first dose of Omnicef this evening. Other medications as on the discharge sequence. Touch base with the cancer center relative to your next encounter. Observe the area of redness. It should continue to kim and the area should recede towards the center. Activity & Diet Discharge Diet: No Restrictions Activity as Tolerated: Yes ABRAHAN BERMUDEZ MD Jan 07, 2018 13:47
[2018-01-07 15:11] VITALS: BP 117/63
--- OUTSIDE RECORDS SUMMARY | 2018-01-15 14:40 | XMS REPORT | Continuity of Care Document ---
Author Author [employer] Organization [facility] Address Unknown Phone Unavailable Care Team Providers Care Regulatory Affairs Coordinator Name Role Phone [employer] Unavailable Unavailable Problems Medications Allergies, Adverse Reactions, Alerts Immunizations Results Vital Signs Encounters Location Location Details Encounter Type Encounter Number Reason For Visit Attending Provider ADM Date DC Date Status Source O 11/08/2017 11/08/2017 Active [facility] INPATIENT [id number] ANGELA MONSON 11/09/20172017 Active [facility] Procedures Plan of Care Social History Assessment and Plan Family History Advance Directives Functional Status
--- OUTSIDE RECORDS SUMMARY | 2018-01-15 14:41 | XMS REPORT | Clinical Summary ---
Author Author [facility] Organization [facility] Address Unknown Phone Unavailable Care Team Providers Care Concert Or Lecture Hall Manager Name Role Phone Tad Campbell MD PCP Source Comments Some departments are not documenting in the electronic medical record. If you do not see the information that you expected, contact Release of Information in the Health Information Management department at [phone] for further assistance in locating additional records.[facility] Allergies Active Allergy Reactions Severity Noted [...] Overview: Added automatically from request for surgery [id number] Encounters Date Type Specialty Care Team Description [...] Garcia DO Lung mass - Encounter Susana uFlton MD 11/17/2017 Kenya Ramey MD Wilson, Matthew [...] Taken Blood Pressure 142/75 11/17/2017 9:00 AM IMAGING ADMINISTRATOR Pulse 99 11/16/2017 8:00 PM IMAGING ADMINISTRATOR Temperature 36.8 C (98.2 F) 11/17/2017 9:00 AM IMAGING ADMINISTRATOR Respiratory Rate - - Oxygen Saturation 93% 11/17/2017 4:00 PM IMAGING ADMINISTRATOR Inhaled Oxygen - - Concentration Weight 90.4 kg (199 lb 4.7 oz) 11/14/2017 5:33 PM IMAGING ADMINISTRATOR Height 154.9 cm (5' 1") 11/09/2017 12:13 AM IMAGING ADMINISTRATOR Body Mass Index 37.66 11/14/2017 5:33 PM IMAGING ADMINISTRATOR Plan of Treatment Health Maintenance Due Date Last Done Comments HEPATITIS C SCREENING 1945 PHYSICAL (COMPREHENSIVE) 1953 EXAM PERTUSSIS VACCINE 1957 TETANUS VACCINE 1963 BREAST CANCER SCREENING 1986 COLORECTAL CANCER 01/26/1996 SCREENING OSTEOPOROSIS SCREENING 2011 PREVNAR/PNEUMOVAX (#1) 2011 INFLUENZA VACCINE 06/10/2018 SHINGLES VACCINE Completed 11/04/2013 Procedures Procedure Name Priority Date/Time Associated Diagnosis [...] WITH 11/14/2017 Lung mass ULTRASOUND 1:30 PM IMAGING ADMINISTRATOR CONSULT IV THERAPY TEAM STAT 11/14/2017 12:18 PM IMAGING ADMINISTRATOR ESOPHAGOGASTRODUODENOSCOP 11/12/2017 Mediastinal mass Y ENDOSCOPIC ULTRASOUND 5:57 PM IMAGING ADMINISTRATOR CONSULT IV THERAPY TEAM Routine 11/12/2017 9:26 AM IMAGING ADMINISTRATOR CONSULT IV THERAPY TEAM STAT 11/09/2017 5:01 AM IMAGING ADMINISTRATOR from Last 3 Months Results * PROCEDURE [...] Specimen Performing Laboratory Blood MAIN LAB [address] [place] [address] * PHOSPHORUS (11/17/2017 3:35 AM) Only the most recent of 4 results within the time period is included. Component Value Ref Range Phosphorus 3.9 2.0 - 4.0 MG/DL Specimen Performing Laboratory Blood MAIN LAB [address] [place] [address] * MAGNESIUM (11/17/2017 3:35 AM) Only the most recent of 4 results within the time period is included. Component Value Ref Range Magnesium 2.0 1.6 - 2.6 mg/dL Specimen Performing Laboratory Blood MAIN LAB [address] [place] [address] * COMPREHENSIVE METABOLIC PANEL (11/17/2017 3:35 AM) [...] Performing Laboratory [facility] [address] [place] [address] * PTT (APTT) (11/14/2017 6:12 PM) Component Value Ref Range APTT 27.7 21.0 - 39.0 SEC Specimen Performing Laboratory [facility] MAIN [facility] [address] [place] [address] * PROTIME INR (PT) (11/14/2017 6:12 PM) Only the most recent of 3 results within the time period is included. Component Value Ref Range INR 1.2 0.8 - 1.2 Specimen Performing Laboratory [facility] [address] [place] [address] * BRONCHOSCOPY (11/14/2017 2:52 PM) Component Value Ref Range Provation Report Patient Name: Jonathon Jay Procedure Date: 11/14/2017 2:52 PM CSN: [id number] Date of : 1945 Gender: Female Attending Physician: Kaushik Whitley MD Procedure:Bronchoscopy Indications:Mediastinal mass Providers:Kaushik Whitley MD (Doctor), Ting Stafford, RN (Nurse), Gloria Day, RN (Nurse), Oscar No, Translator Interpreter (Techn ician) Referring Physician:Leyla Lopez Medications:Tetricaine 0.25%/Epinephrine [...] Blood [facility]IN [facility] [address] [place] [address] * FINE NEEDLE ASPIRATE (FNA) (11/14/2017 9:04 AM) Component Value Ref Range Cytology [email or web address] Department of Pathology and Laboratory Medicine [address] [place] [address] Surgical Pathology Office:[phone]:[phone] CYTOLOGY REPORT NAME: JONATHON JAY SURG PATH #: [id number] MR #: [id number] ALT ID #: [id number] #: [id number] LOCATION: DATE OF PROCEDURE: 11/14/2017 AGE:72 SEX: F DATE RECEIVED: 11/15/2017 : 1945TIME RECEIVED:09:04 PHYSICIAN: KAUSHIK WHITLEY [facility] DATE OF REPORT: 11/16/2017 COPY TO: KENYA RAMEY MD BRICE J ZOGLEMAN, MD CROSSER, MICHAEL [facility] DATE OF PRINTIN11/16/2017 Material Received: A: FNA Lung-Right Mainstem History: 72 year old female, history of large mediastinal mass. Gross Description: ( 4 DQ direct smear, 4 Pap direct smear, 1 cell block) Rapid determination of adequacy was performed by the wildlife technician, TANNER, on Diff-Quik stained slide(s). Pass one, two and three not adequate for evaluation.Pass four adequate for evaluation.Pass five, six, and seven into RPMI. ################################################## ###################### Final Diagnosis: A. 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 See comment. Please also see concurrent cytology report ([id number]). Comment: Extensive crush artifact is present. Immunohistochemical stains for figueredo-cytokeratin, CAM5.2, CD34, desmin, TTF-1, PAX-8, SOX-10, calretinin, and Ki-67 performed on the cell block are non-contributory due to a lack of lesional tissue. A biopsy/more extensive sampling is recommended for a definitive diagnosis. Pursuant to the Accreditation Specialist Program at the [facility] Pathology Department, selected slides from this [...] Interface, Radiant Results - 11/13/2017 12:02 PM IMAGING ADMINISTRATOR Procedure: CHEST 2 VIEWS Clinical Indication: [...] expressed in this report Finalized by Victorina Hightoewr M.D. on 11/13/2017 11:59 AM. Dictated by Tani Browning M.D. on 11/13/2017 8:59 AM. * ENDOSCOPIC ULTRASOUND REPORT (11/12/2017 6:12 PM) Component Value Ref Range Provation Report Patient Name: Pierre Garner Procedure Date: 11/12/2017 6:12 PM CSN: [id number] Date of : 1945 Gender: Female Attending Physician: Michael Wade MD Procedure: Upper EUS Indications:Gorman spected mass in mediastinum on chest CT Providers: Michael Wade MD (Doctor), Truong Burrell MD (Fellow), Miri Hairston (Nurse), Randi Levin, Translator Interpreter (Translator Interpreter) Referring Physician:Referral Self Medications:Mo nitored Anesthesia Care [...] minutes 23 seconds Procedure Code(s):--- Professional --- 20200, Esophagogastroduodenoscopy, flexible, transoral; with endoscopic ultrasound examination, including the esophagus, stomach, and either the duodenum or a surgically altered stomach where the jejunum is examined distal to the anastomosis Diagnosis Code(s):--- Professional --- J98.59, Other diseases of mediastinum, not elsewhere classified R93.8, Abnormal findings on diagnostic imaging of other specified body structures CPT copyright 2016 [employer]. All rights reserved. The codes documented in this report are preliminary and upon stave machine tender review may be revised to meet current [...] Specimen Performing Laboratory [facility] OTHER RESULTS * NON-PROBATION MANAGER CYTOLOGY (BODY FLUIDS/TISSUE) (11/09/2017 2:22 PM) Component Value Ref Range Cytology [facility] [email or web address] Department of Pathology and Laboratory Medicine [address] [place] [address] Surgical Pathology Office:[phone]:[phone] CYTOLOGY REPORT NAME: JONATHON JAY CYTOLOGY #: [id number] MR #: [id number] ALT ID #: BILLING #: [id number] LOCATION: DATE OF PROCEDURE: 11/09/2017 AGE:72 SEX: [...] Interface, Radiant Results - 11/09/2017 5:41 PM IMAGING ADMINISTRATOR PET/CT NECK, CHEST, ABDOMEN AND PELVIS [...] effusion MEDICATIONS: 5 mL subcutaneous 2% lidocaine DEPARTMENT STORE DOOR GREETER: Matthew Bejarano M.D., Amadou Zeng M.D. The [...] Interface, Radiant Results - 11/12/2017 10:39 AM IMAGING ADMINISTRATOR Ultrasound-guided Thoracentesis CLINICAL INDICATION: Symptomatic pleural effusion MEDICATIONS: 5 mL subcutaneous 2% lidocaine DEPARTMENT STORE DOOR GREETER: Matthew Bejarano M.D., Amadou Zeng M.D. The [...] of the right mid and lower lung coorna compatible with known pulmonary mass and pleural effusion. No appreciable pneumothorax. Left lung is relatively clear. Surgical clips overlie the lower neck and left axilla. Procedure Note Interface, Radiant Results - 11/09/2017 12:28 PM IMAGING ADMINISTRATOR Chest, single view with inspiration and [...] Interface, Radiant Results - 11/09/2017 5:47 PM IMAGING ADMINISTRATOR CHEST IMMEDIATE POST PROCEDURE INSP/EXP Clinical [...] exudate Specimen Performing Laboratory Pleural fluid - [facility] Thoracentesis Fluid [address] [place] [address] * PLEURAL FLUID PH (11/09/2017 10:36 AM) Component Value Ref Range Pleural Fluid Ph 7.45 (L) 7.60 - 7.66 Specimen Performing Laboratory Pleural fluid [facility] Thoracentesis Fluid [address] [place] [address] * PLEURAL FLUID LACTATE DEHYDROGENASE (11/09/2017 10:36 AM) Component Value Ref Range Pleural Fluid Lactate 398 (H)Comment: Higher levels suggestive of 67 - 140 U/L Dehydrogenase exudate Specimen Performing Laboratory Pleural fluid - [facility] Thoracentesis Fluid [address] [place] [address] * PLEURAL FLUID GLUCOSE (11/09/2017 10:36 AM) Component Value Ref Range Pleural Fluid Glucose 102 (H) 70 - 100 mg/dL Comment: Glucose <60 mg/dL associated withparapneumonic effusion, tuberculosis, malignancy, empyema, and rheumatoid disease Specimen Performing Laboratory Pleural fluid - MAIN LAB Thoracentesis Fluid [address] [place] [address] * PLEURAL FLUID ALBUMIN (11/09/2017 10:36 AM) Component Value Ref Range Pleural Fluid Albumin 2.4Comment: Pleural fluid albumin gradient >1.2 g/ dL g/dL is suggestive of an exudate Specimen Performing Laboratory Pleural fluid - [facility] Thoracentesis Fluid [address] [place] [address] * GRAM STAIN (11/09/2017 10:36 AM) Component Value Ref Range Battery Name GRAM STAIN Specimen Description THORACENTESIS FLUID Special Requests NONE Gram Stain FEW NEUTROPHILS NO ORGANISMS SEEN Report Status FINAL 11/09/2017 Specimen Performing Laboratory Thoracentesis Fluid [facility] [address] [place] [address] * CULTURE-WOUND/TISSUE/FLUID(AEROBIC ONLY)W/SENSITIVITY (11/09/2017 10:36 AM) Component Value Ref Range Battery Name ROUTINE CULTURE Specimen Description THORACENTESIS FLUID Special Requests NONE Direct Gram Stain FEW NEUTROPHILS NO ORGANISMS SEEN Culture NO GROWTH 5 DAYS Report Status FINAL 11/14/2017 Specimen Performing Laboratory Pleural fluid - MAIN LAB Thoracentesis Fluid [address] [place] [address] * CULTURE-ANAEROBIC (11/09/2017 10:36 AM) Component Value Ref Range Battery Name ANAEROBE CULTURE Specimen Description THORACENTESIS FLUID Special Requests NONE Culture NO ANAEROBES ISOLATED Report Status FINAL 11/14/2017 Specimen Performing Laboratory Pleural fluid - [facility] Thoracentesis Fluid [address] [place] [id number] * CELL COUNT W/DIFF-FLUIDS (11/09/2017 10:36 AM) [...] fluid - MAIN LAB Thoracentesis Fluid [address] [place] [address] * STREPTOCOCCUS PNEUMO AG, URINE (11/09/2017 7:22 AM) Component Value Ref Range Battery Name STREP PNEUMO AG, UR Specimen Description URINE Special Requests NONE Antigen NEGATIVE Report Status FINAL 11/09/2017 Specimen Performing Laboratory Urine MAIN LAB [address] [place] [address] * LEGIONELLA ANTIGEN URINE,RAN (11/09/2017 7:22 AM) Component Value Ref Range Battery Name LEGIONELLA URINE ANTIGEN Specimen Description URINE Special Requests NONE Antigen NEGATIVE Report Status FINAL 11/09/2017 Specimen Performing Laboratory Urine MAIN LAB [address] [place], [place] [id number] * RVP VIRAL PANEL PCR (11/09/2017 3:05 [...] Specimen Performing Laboratory Nasopharyngeal Swab MAIN LAB [address] [place], [place] [id number] * TSH WITH FREE T4 REFLEX (11/09/2017 2:55 AM) Component Value Ref Range TSH 1.008 0.35 - 5.00 MCU/ML Specimen Performing Laboratory Blood MAIN LAB [address] [place], [place] [id number] * CULTURE-BLOOD W/SENSITIVITY (11/09/2017 2:55 AM) Only the most recent of 2 results within the time period is included. Component Value Ref Range Battery Name BLOOD CULTURE Specimen Description BLOOD RIGHT FA Special Requests NONE Culture NO GROWTH 5 DAYS Report Status FINAL 11/15/2017 Specimen Performing Laboratory Blood MAIN LAB [address] [place], [place] [id number] * TROPONIN-I (11/09/2017 2:55 AM) Component Value Ref Range Troponin-I 0.01 0.0 - 0.05 NG/ML Specimen Performing Laboratory Blood MAIN LAB [address] [place], [place] [id number] * BNP (B-TYPE NATRIURETIC PEPTI) (11/09/2017 2:55 AM) Component Value Ref Range B Type Natriuretic 28.0 0 - 100 PG/ML Peptide Specimen Performing Laboratory Blood [facility] MAIN LAB [address] [place] [address] * GENERAL RAD CHEST EXTERNAL IMAGING (11/08/2017 5:05 PM) Narrative This order has been auto finalized and does not contain a result. * CT CHEST EXTERNAL IMAGING (11/08/2017) Narrative This order has been auto finalized and does not contain a result. from Last 3 Months
--- OUTSIDE RECORDS SUMMARY | 2018-01-15 14:43 | XMS REPORT | Encounter Summary ---
Author Author [facility] Organization [facility] Address Unknown Phone Unavailable Care Team Providers Care Pumping Station Supervisor Name Role Phone Tad Campbell MD PCP Encounter Details Date Type Department Care Team Description 11/14/2017 Procedure Pass Gastrointenstinal Endoscopy [address] [place] [address] Social History Tobacco Use Types [...]
--- OUTSIDE RECORDS SUMMARY | 2018-01-15 14:43 | XMS REPORT | Encounter Summary ---
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 Encounter Details Date Type Department Care Team Description 11/09/[address] Israel Garcia DO Lung mass - Encounter [address] 11/17/2017 [place] [address] [place] [address] [phone] H Susana Cook MD [address] [place] [address] [phone] P Kenya murray MD [address] [place] [address] [phone] Kane Drake MD [address] [place] [address] [phone] Harley Kramer MD [address] [place] [address] [phone] Tani Mcclellan MD [address] [place] [address] [phone] S Angela carvalho MD [address] [place] [address] [phone] Social History Tobacco Use Types Packs/Day Years Used Date Never Smoker Smokeless Tobacco: Never Used Alcohol Use Drinks/Week oz/Week Comments No Sex Assigned at Date Recorded Not on file as of this encounter Last Filed Vital Signs Vital Sign Reading Time Taken Blood Pressure 142/75 11/17/2017 9:00 AM SENIOR PRODUCT ANALYST Pulse 99 11/16/2017 8:00 PM SENIOR PRODUCT ANALYST Temperature 36.8 C (98.2 F) 11/17/2017 9:00 AM SENIOR PRODUCT ANALYST Respiratory Rate - - Oxygen Saturation 93% 11/17/2017 4:00 PM SENIOR PRODUCT ANALYST Inhaled Oxygen - - Concentration Weight 90.4 kg (199 lb 4.7 oz) 11/14/2017 5:33 PM SENIOR PRODUCT ANALYST Height 154.9 cm (5' 1") 11/09/2017 12:13 AM SENIOR PRODUCT ANALYST Body Mass Index 37.66 11/14/2017 5:33 PM SENIOR PRODUCT ANALYST in this encounter Functional Status Functional Status Response Date of Assessment Does the patient have a hearing impairment: No 11/09/2017 as of this encounter Discharge Summaries * Amadou Encarnacion MD - 11/17/2017 2:07 PM SENIOR PRODUCT ANALYST Formatting of this note may be different [...] chest with pleural effusion. She transferred to [facility] for CTS consultation. [...] or concerns regarding your hospital stay. Call [phone] Discharging attending physician: ANGELA MONSON [[id number]] Regular Diet You have no dietary restriction. Please continue with a healthy balanced diet. Return Appointment - Appointment with Dr. Quintero scheduled for Sunday11/21/17 at 8:00am [facility] Address: [address] [place] [address] Current Discharge Medication List START taking these [...] partner) scheduled for Sunday at 8:00am [facility] [address] [place] [address] Pending items needing follow up: Signed: Amadou Encarnacion MD 11/17/2017 cc: Primary Care Physician: Tad Campbell Referring physicians: Self, Referral Additional provider(s): in this encounter Discharge Instructions * Discharge Instr - Appointments - Amadou Encarnacion MD - 11/17/2017 11:55 AM SENIOR PRODUCT ANALYST - Appointment with Dr. Quintero (Dr. Middleton's partner) scheduled for 11/21 at 8:00am [facility] [address] [place] [address] in this encounter Medications at Time of [...] Harris, RN - 11/17/2017 2:40 PM SENIOR PRODUCT ANALYST 0700: Report received and care assumed. Bedside [...] Transport at bedside to [facility] with all belongings. 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 Workup: - Biopsy 10/26/17 in [place] - [facility] [...] Dr. Ilya Encarnacion MD PGY1 Emergency Medicine 2852 Heather Jay is a 72 y.o. female. [...] Amadou Encarnacion MD PGY1 Emergency Medicine Pager [phone] Associated attestation - Angela Monson MD - [...] Hernandez APRN - 11/16/2017 9:09 AM SENIOR PRODUCT ANALYST Med-Onc Quick Note: - Appointment with Dr. Quintero (Dr. Middleton's partner) scheduled for 11/21 at 8:00am - Awaiting pathology results from biopsy obtained on 11/15 for definitive treatment planning [facility] Address: [address] [place] [address] Jim Hernandez APRN [phone] * Tani Munson MD - 11/16/2017 5:55 AM SENIOR PRODUCT ANALYST Formatting of this note may be different [...] Suspect sarcoma. Workup: - Biopsy 10/26/17 in [place], [place] - path review of [facility] [...] Dr. Jeimy Encarnacion MD PGY1 Emergency Medicine 3126 ATTESTATION I personally performed the zapata portions [...] Amadou Encarnacion MD PGY1 Emergency Medicine Pager [phone] * Maegan Orr, RT - 11/15/2017 6:11 PM SENIOR PRODUCT ANALYST Formatting of this note may be different [...] Date: 11/15/2017 Zapata AC=Airway clearance AM=Aerosolized medication BA=[place] aerosol DB&C=Deep breathe & cough FEV1=Forced expiratory volume in first second) IC=Inspiratory capacity LE=Lung expansion I=Metered dose inhaler Neb=Nebulizer O2=Oxygen Oxim=Oximetry PEFR=Peak expiratory flow rate PULP GRINDER FEEDER=Rapid Response Team * Leonarda Watkins, RN - 11/15/2017 6:00 PM SENIOR PRODUCT ANALYST 1800 Assumed care of pt from Cat Brendon RN. Assessment complete, vss. * Richa Olivas RN - 11/15/2017 5:40 PM SENIOR PRODUCT ANALYST 0730 - assumed care of patient, bedside safety check completed 0800 - assessment completed and documented per ICU flow sheet. Patient alert & oriented x4, follows commands, denies pain at this time. All VSS per patient trends, remains on 6L HFNC, will titrate as tolerated. Will continue to monitor. * Emilee Camargo MD - 11/15/2017 11:44 AM SENIOR PRODUCT ANALYST CTS Progress Note Case reviewed in multidisciplinary [...] Hernandez APRN - 11/15/2017 7:19 AM SENIOR PRODUCT ANALYST Formatting of this note may be different [...] spindle cell neoplasm [pending outside consultation with [facility] block- report indicates suspicion for [...] to pursue treatment closer to home, in [place], [place]. Patient already established with Dr. Middleton at [facility]. Will arrange ongoing follow up. [...] Diagnostics Review: Pertinent radiology reviewed. Debora Hernandez, CABIN WORKER [phone] * Tani Munson MD - 11/15/2017 6:51 AM SENIOR PRODUCT ANALYST Formatting of this note may be different [...] sarcoma. Workup: - S/p biopsy 10/26/17 in [place], [place] with path review of [facility] [...] Dr. Jeimy Encarnacion MD PGY1 Emergency Medicine 4014 ATTESTATION I personally performed the zapata portions [...] (Last 24 hours) Glucose: (!) 147 (11/15/17 7035) Radiology and other Diagnostics Review: Pertinent radiology reviewed. Amadou Encarnacion MD PGY1 Emergency Medicine Pager [phone] * Angela Del Castillo RN - 11/14/2017 7:49 PM SENIOR PRODUCT ANALYST 1930: Assumed care of patient. Bedside safety [...] Olivas RN - 11/14/2017 6:36 PM SENIOR PRODUCT ANALYST 1730 - patient arrived to 63 from GI/Endo. Bedside safety check completed. Assessment completed and documented per ICU flow sheet. Patient alert & oriented x4, follows commands, denies pain at this time. Placed on HFNC, will titrate as tolerated. All other VSS per patient trends, will continue to monitor. * Elizabeth Navarrete RN - 11/14/2017 5:42 PM SENIOR PRODUCT ANALYST Patient arrived to room # (6314) via [...] Niño MD - 11/14/2017 11:10 AM SENIOR PRODUCT ANALYST Formatting of this note may be different [...] atypical spindle cell neoplasm. She presented to [facility] in [place], [place] with dyspnea and dry cough, found to have increased right-sided pleural effusion and atelectasis, transferred to [facility]. S/p thoracentesis 11/09 with improvement in dyspnea. Planning on obtaining more tissue for diagnosis based on recommendation of oncology. 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 Workup: - S/p biopsy 10/26/17 in [place], [place] with path review of [facility] [...] Niño MD - 11/13/2017 4:22 PM SENIOR PRODUCT ANALYST Formatting of this note may be different [...] atypical spindle cell neoplasm. She presented to [facility] in [place], [place] with dyspnea and dry cough, found to have increased right-sided pleural effusion and atelectasis, transferred to [facility]. S/p thoracentesis 11/09 with improvement in dyspnea. Planning on obtaining more tissue for diagnosis based on recommendation of oncology. 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 Workup: - S/p biopsy 10/26/17 in [place] with path review of [facility] [...] Arellano MD - 11/12/2017 10:09 PM SENIOR PRODUCT ANALYST EUS on 11/12/2017 with the axial mass [...] Niño MD - 11/12/2017 8:41 PM SENIOR PRODUCT ANALYST Formatting of this note may be different [...] atypical spindle cell neoplasm. She presented to [facility] in [place], [place] with dyspnea and dry cough, found to have increased right-sided pleural effusion and atelectasis, transferred to [facility]. S/p thoracentesis 11/09 with improvement in dyspnea. Planning on obtaining more tissue for diagnosis, with EGD/EUS planned for tomorrow, 11/12. 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 Workup: - S/p biopsy 10/26/17 in [place] with path review of [facility] [...] Lassiter RN - 11/12/2017 3:05 PM SENIOR PRODUCT ANALYST 1705 - Pt. left 6411 to GI lab. * Debora Hernandez APRN - 11/12/2017 2:39 PM SENIOR PRODUCT ANALYST Formatting of this note may be different [...] spindle cell neoplasm [pending outside consultation with [facility] block- report indicates suspicion for [...] Diagnostics Review: Pertinent radiology reviewed. Debora Hernandez, CABIN WORKER [phone] * Dianne Cazares, RT - 11/12/2017 10:20 AM SENIOR PRODUCT ANALYST Formatting of this note may be different [...] Date: 11/12/2017 Zapata AC=Airway clearance AM=Aerosolized medication BA=[place] aerosol DB&C=Deep breathe & cough FEV1=Forced expiratory volume in first second) IC=Inspiratory capacity LE=Lung expansion MDI=Metered dose inhaler Neb=Nebulizer O2=Oxygen Oxim=Oximetry PEFR=Peak expiratory flow rate PULP GRINDER FEEDER=Rapid Response Team * Kane Castellano MD - 11/11/2017 1:10 PM SENIOR PRODUCT ANALYST Formatting of this note may be different [...] atypical spindle cell neoplasm. She presented to [facility] in [place], [place] with dyspnea and dry cough, found to have increased right-sided pleural effusion and atelectasis, transferred to [facility]. S/p thoracentesis 11/09 with improvement in dyspnea. Planning on obtaining more tissue for diagnosis, with EGD/EUS planned for tomorrow, 11/12. 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 Workup: - S/p biopsy 10/26/17 in [place] with path review of [facility] [...] Full code Hero Castellano MD Hospitalist Pager [phone] Heather Jay is a 72 y.o. female. [...] Loretta Chaudhry - 11/10/2017 8:36 PM SENIOR PRODUCT ANALYST Med pvt paged regarding pt increased concern about rash under right breast and on chest. Rash is warm to touch and sensitive. Pt c/o constant burning sensation. Orders placed for nystatin topical cream. This RN routinely monitoring. * Montez Roger, AC - 11/10/2017 7:21 PM SENIOR PRODUCT ANALYST Patient called this RN into room to assess newly discovered rash under right breast. Rash is slightly warmer than surrounding skin upon assessment. Patient states rash is a slight burning sensation but not itching. Med Private paged. Order to continue to monitor. * Kane Castellano MD - 11/10/2017 12:37 PM SENIOR PRODUCT ANALYST Formatting of this note may be different [...] atypical spindle cell neoplasm. Who presented to [facility] in [place], [place] with dyspnea and dry cough,found to have increased right-sided pleural effusion and atelectasis. S/p thoracentesis 11/09 with improvement in dyspnea. Planning on CTS consult, obtaining more tissue for diagnosis/ EGD/EUS on Sunday. 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 Workup: - S/p biopsy 10/26/17 in [place] with path review of [facility] [...] Full code Hero Castellano MD Hospitalist Pager [phone] Heather Jay is a 72 y.o. female. [...] Goff, PT - 11/09/2017 2:40 PM SENIOR PRODUCT ANALYST PHYSICAL THERAPY NOTE Per discussion with RN [...] Miri Thao - 11/09/2017 1:39 PM SENIOR PRODUCT ANALYST OCCUPATIONAL THERAPY NO TREATMENT NOTE Patient denies [...] Marisa Bush - 11/09/2017 11:24 AM SENIOR PRODUCT ANALYST Pt left IR in bed with [employer] personal. * Yasemin Barlow RN - 11/09/2017 11:07 AM SENIOR PRODUCT ANALYST Report called to AC Graves No questions and concerns. Immediate chest xray read by Dr. Hyatt. Pt. Cleared to go back to home unit. * Reid Castillo RN - 11/09/2017 9:42 AM SENIOR PRODUCT ANALYST Vital signs q 15 minutes x 4 [...] Serrato RN - 11/09/2017 3:44 AM SENIOR PRODUCT ANALYST Paged regarding a 2.15 second pause. Patient is asymptomatic at this time. Dr. Owen returned page will order an EKG. * Faviola Serrato RN - 11/09/2017 12:59 AM SENIOR PRODUCT ANALYST Patient arrived to room # (5159) via cart accompanied by EMS. Patient transferred [...] Lange MD - 11/14/2017 5:40 PM SENIOR PRODUCT ANALYST Formatting of this note may be different [...] atypical spindle cell neoplasm. She presented to [facility] in [place], [place] with dyspnea and dry cough, found to have increased right-sided pleural effusion and atelectasis, transferred to [facility]. S/p thoracentesis 11/09 with improvement in dyspnea. Planning on obtaining more tissue for diagnosis, with EGD/EUS planned for 11/12. 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 Workup: - S/p biopsy 10/26/17 in [place], [place] with path review of [facility] [...] Dr. Erik Encarnacion MD PGY1 Emergency Medicine 2483 ICU Attending Note Jonathon Jay Is critically [...] Amadou Encarnacion MD PGY1 Emergency Medicine Pager [phone] * Kasuhik Gutierrez MD - 11/14/2017 3:34 PM SENIOR PRODUCT ANALYST Formatting of this note may be different [...] Relevant labs reviewed Kaushik Gutierrez MD Pager [phone] * Pantera Ortiz, CABIN WORKER-TOOL AND DIE ENGINEER - 11/09/2017 9:48 AM SENIOR PRODUCT ANALYST Formatting of this note may be different [...] Tests: Labs: Pertinent labs reviewed Pantera Ortiz APRN-TOOL AND DIE ENGINEER Pager [phone] * Kenya Ramey MD - 11/09/2017 2:23 AM SENIOR PRODUCT ANALYST Formatting of this note may be different [...] [facility]]. Patient presented to [facility] in [place], [place] for shortness of breath and dry [...] [facility] Patient presented to [facility] in [place], [place] for shortness of breath and dry cough. Dyspnea has been ongoing for the last month or so but got worse after the biopsy on 10/26. Patient denies having phlegm, hemoptysis, or chest pain. She was found to have increased right-sided pleural effusion on CT chest without contrast. Her saturation was 88% on room air. She was transferred to [facility] for CTS consultation. Patient states that she has extensive family history of cancer: her father had colon, lung and liver cancer, and her mother had leukemia. She never smoked cigarettes. 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 She lives by herself, and is able to take care of herself. Her kids live near her, in the area of [place]. Past Medical History: Diagnosis Date HTN (hypertension) [...] reviewed. Susana Woo MD Internal Medicine Pager [phone] in this encounter Consult Notes * Charline Alves DO - 11/13/2017 11:08 AM SENIOR PRODUCT ANALYST Associated Order(s): CONSULT PULMONARY/CRITICAL CARE PHYSICIAN Formatting [...] who presented with dyspnea and cough to [facility] in [place], [place]. She was found to have a [...] breath so presented to the ED in [place], [place] and then was transferred here. She [...] Elizabeth Alves DO Pulmonary/Critical Care Pager # [phone] 11/13/2017 Associated attestation - Akash Winn MD - 11/13/2017 10:54 PM SENIOR PRODUCT ANALYST Formatting of this note may be different [...] Camargo MD - 11/10/2017 4:00 PM SENIOR PRODUCT ANALYST Associated Order(s): CONSULT CARDIOTHORACIC SURGERY PHYSICIAN Formatting of this note may be different from the original. CTS CONSULT Date of Service: 11/10/2017 Requesting Physician: Kenya Ramey MD Consulting Physician: Leyla Lopez MD Consult Performed By: Emilee Camargo MD HPI: Mrs. Jay is a 72 y/o F who presented to [facility] in [place], [place], for shortness of breath and a nonproductive cough. 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 She was transferred to [facility] for further workup. [...] Lopez MD - 11/11/2017 8:53 AM SENIOR PRODUCT ANALYST Formatting of this note may be different from the original. ATTESTATION I personally performed the zapata portions of the E/M visit, discussed case with resident and concur with resident documentation of history, physical exam, assessment, and treatment plan unless otherwise noted. Staff name: Leyla Lopez MD Date: 11/11/2017 * Bette Kurtz MD - 11/09/2017 10:37 AM SENIOR PRODUCT ANALYST Associated Order(s): CONSULT GASTROENTEROLOGY PHYSICIAN Formatting of [...] (pending final pathology work-up), was transferred from [place], [place] to [facility] for worsening shortness [...] (pending final pathology work-up), was transferred from [place], [place] to [facility] for worsening shortness [...] Arellano MD Gastroenterology & Hepatology Fellow Pager [phone] * Debora Hernandez APRN - 11/09/2017 7:33 AM SENIOR PRODUCT ANALYST Associated Order(s): CONSULT ONCOLOGY PHYSICIAN Formatting of [...] spindle cell neoplasm [pending outside consultation with [facility] block- report indicates suspicion for [...] 72 y.o. female admitted in transfer from [place], [place] for CTS evaluation. Patient has newly [...] FINAL 11/09/2017 Pertinent radiology reviewed. Debora Hernandez, [facility] [phone] Associated attestation - Alvin Fink MD - 11/09/2017 5:29 PM SENIOR PRODUCT ANALYST Attestation by Dr. Fink: I saw this patient with Debora Hernandez CABIN WORKER , I confirmed her history with the [...] and therapeutic thoracentesis. Outside path review from [facility] arrived this pm - possibly [...] Alli Edwinros - 11/16/2017 9:48 AM SENIOR PRODUCT ANALYST Case Management Progress Note NAME:Jonathon Jay : [...] ? Medication Needs ? Financial Medicare and [place] [employer] [place] ? Legal Legal: DPOA & Advance Directives [...] No ? Discharge Disposition Jeny Carson LMSW [phone] (phone) [phone] (pager) * Case Mgmt DC Plan - Lisa Jurado RN - 11/16/2017 9:11 AM SENIOR PRODUCT ANALYST Formatting of this note may be different from the original. Case Management Progress Note NAME:Jonathon Jay : AGE: 72 y.o. ADMISSION DATE: 11/09/2017 DAYS ADMITTED: LOS: 7 days Todays Date: 11/16/2017 Plan Discharge planning Interventions ? Support Support: Pt/Family Updates re:POC or DC Plan ? Info or Referral Patient has her CPAP through [facility] in [place]. 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 ? Discharge Planning Spoke with patient Patient [...] Disposition Latrell Jurado RN MSN ONC Nurse Buildings And Grounds Superintendent Pg [phone] Durable Medical Equipment No service has been selected for the patient. [facility] Destination No service has been selected for the patient. Home Care No service has been selected for the patient. Dialysis/Infusion No service has been selected for the patient. * Anesthesia Post Op Day 1 - Amadou Beard DO - 11/15/2017 7:38 AM SENIOR PRODUCT ANALYST Formatting of this note may be different [...] Shyanne Gonzalez - 11/14/2017 1:16 PM SENIOR PRODUCT ANALYST Formatting of this note may be different [...] been selected for the patient. Shyanne Gonzalez, [facility] *[id number] * Anesthesia Post Op Day 1 - Amadou Beard DO - 11/13/2017 7:50 AM SENIOR PRODUCT ANALYST Formatting of this note may be different [...] Mclaughlin RN - 11/11/2017 5:15 PM SENIOR PRODUCT ANALYST Problem: Discharge Planning Goal: Participation in plan of care Outcome: Goal Ongoing Pt updated on plan of care. No plans to d/c at this time. Problem: Respiratory Impairment (Non-Ventilated Patient) Goal: Effective gas exchange Outcome: Goal Ongoing Pt on 2L NC. * Case Mgmt DC Plan - Shyanne Gonzalez - 11/09/2017 3:27 PM SENIOR PRODUCT ANALYST Case Management Admission Assessment NAME:Jonathon Jay : [...] [facility]]. Patient presented to [facility] in [place], [place] for shortness of breath and dry cough, she was found to have increased right-sided pleural effusion and atelectasis on CT chest without contrast." Patient Address/Phone [address] [address] (home) Emergency Contact Extended Emergency Contact Information Primary Emergency Contact: Becky Griffiths Address: [address] Mobile Relation: Daughter Preferred language: [place] Healthcare Directive Pt does not have a [...] Primary Insurance: Medicare Secondary Insurance: Commercial insurance ([facility]) Additional Coverage: RX ([employer] and [employer]. Pt manages her own medications and is able to afford her Rx) ? Source of Income Source Of Income: Other skilled nursing income ? Financial Assistance Needed? none Psychosocial Needs ? Mental Health Mental Health History: No ? Substance Use History Substance Use History Screen: No ? Other none Current/Previous Services ? PCP Tad Campbell, , ? Pharmacy [facility] [address] [place] [id number] ? Durable Medical Equipment Durable Medical Equipment [...] ? Outpatient Therapy PT: No OT: No HOT TAMALE WORKER: No ? Residential Facility/Long Term SNF: No NH: No ? Inpatient Rehab IPR: No ? Long-Term Acute Care Hospital LTACH: No ? Acute Hospital Stay Acute Hospital Stay: In the past Shyanne Gonzalez [facility] *[id number] * Procedures (Immed Post or Bedside) - Amadou Zeng MD - 11/09/2017 10:38 AM SENIOR PRODUCT ANALYST Procedure Note Procedures Immediate Post Procedure Note [...] Serrato RN - 11/09/2017 5:22 AM SENIOR PRODUCT ANALYST Problem: Discharge Planning Goal: Participation in plan [...] 11/14/2017 Lung mass ULTRASOUND 1:30 PM SENIOR PRODUCT ANALYST CONSULT IV THERAPY TEAM STAT 11/14/2017 12:18 PM SENIOR PRODUCT ANALYST ESOPHAGOGASTRODUODENOSCOP 11/12/2017 Mediastinal mass Y ENDOSCOPIC ULTRASOUND 5:57 PM SENIOR PRODUCT ANALYST CONSULT IV THERAPY TEAM Routine 11/12/2017 9:26 AM SENIOR PRODUCT ANALYST CONSULT IV THERAPY TEAM STAT 11/09/2017 5:01 AM SENIOR PRODUCT ANALYST in this encounter Results * PROCEDURE RECORD-SCAN [...] Specimen Performing Laboratory Blood MAIN LAB [address] [place] [address] * PHOSPHORUS (11/17/2017 3:35 AM) Component Value Ref Range Phosphorus 3.9 2.0 - 4.0 MG/DL Specimen Performing Laboratory Blood [facility] [address] [place] [address] * MAGNESIUM (11/17/2017 3:35 AM) Component Value Ref Range Magnesium 2.0 1.6 - 2.6 mg/dL Specimen Performing Laboratory Blood MAIN LAB [address] [place] [address] * CBC AND DIFF (11/17/2017 3:35 AM) [...] Specimen Performing Laboratory Blood MAIN LAB [address] [place] [id number] * COMPREHENSIVE METABOLIC PANEL (11/16/2017 5:34 AM) [...] questions. Specimen Performing Laboratory Blood MAIN LAB [address] [place] [address] * PHOSPHORUS (11/16/2017 5:34 AM) Component Value Ref Range Phosphorus 3.8 2.0 - 4.0 MG/DL Specimen Performing Laboratory Blood MAIN LAB [address] [place] [address] * MAGNESIUM (11/16/2017 5:34 AM) Component Value Ref Range Magnesium 2.1 1.6 - 2.6 mg/dL Specimen Performing Laboratory Blood MAIN LAB [address] [place] [address] * CBC AND DIFF (11/16/2017 5:34 AM) [...] K/UL Specimen Performing Laboratory Blood MAIN LAB [address] [place], [place] [id number] * COMPREHENSIVE METABOLIC PANEL (11/15/2017 2:35 AM) [...] questions. Specimen Performing Laboratory Blood MAIN LAB [address] [place] [address] * PHOSPHORUS (11/15/2017 2:35 AM) Component Value Ref Range Phosphorus 5.0 (H) 2.0 - 4.0 MG/DL Specimen Performing Laboratory Blood MAIN LAB [address] [place] [address] * MAGNESIUM (11/15/2017 2:35 AM) Component Value Ref Range Magnesium 2.2 1.6 - 2.6 mg/dL Specimen Performing Laboratory Blood MAIN LAB [address] [place] [address] * CBC AND DIFF (11/15/2017 2:35 AM) [...] Specimen Performing Laboratory Blood MAIN LAB [address] [place] [address] * CBC AND DIFF (11/14/2017 6:12 PM) [...] Specimen Performing Laboratory Blood MAIN LAB [address] [place] [address] * COMPREHENSIVE METABOLIC PANEL (11/14/2017 6:12 PM) [...] questions. Specimen Performing Laboratory Blood MAIN LAB [address] [place] [address] * MAGNESIUM (11/14/2017 6:12 PM) Component Value Ref Range Magnesium 2.1 1.6 - 2.6 mg/dL Specimen Performing Laboratory Blood MAIN LAB [address] [place], [place] [id number] * PHOSPHORUS (11/14/2017 6:12 PM) Component Value Ref Range Phosphorus 4.5 (H) 2.0 - 4.0 MG/DL Specimen Performing Laboratory Blood MAIN LAB [address] [place] [address] * PTT (APTT) (11/14/2017 6:12 PM) Component Value Ref Range APTT 27.7 21.0 - 39.0 SEC Specimen Performing Laboratory Blood MAIN LAB [address] [place], [place] [id number] * PROTIME INR (PT) (11/14/2017 6:12 PM) Component Value Ref Range INR 1.2 0.8 - 1.2 Specimen Performing Laboratory Blood MAIN LAB [address] [place] [address] * BRONCHOSCOPY (11/14/2017 2:52 PM) Component Value Ref Range Provation Report Patient Name: Jonathon Jay Procedure Date: 11/14/2017 2:52 PM CSN: [id number] Date of : 1945 Gender: Female Attending Physician: Kaushik Gutierrez MD Procedure:Bronchoscopy Indications:Mediastinal mass Providers:Kaushik Gutierrez MD (Doctor), Ting Stafford RN (Nurse), Gloria Day RN (Nurse), Oscar No, Mixing Pan Tender (Techn ician) Referring Physician:Leyla Lopez Medications:Tetricaine 0.25%/Epinephrine [...] NEG Specimen Performing Laboratory Blood MAIN LAB [address] [place] [address] * PROTIME INR (PT) (11/14/2017 12:30 PM) Component Value Ref Range INR 1.2 0.8 - 1.2 Specimen Performing Laboratory Blood MAIN LAB [address] [place] [address] * FINE NEEDLE ASPIRATE (FNA) (11/14/2017 9:04 AM) Component Value Ref Range Cytology [facility] [email or web address] Department of Pathology and Laboratory Medicine [address] [place] [address] Surgical Pathology Office:[phone]:[phone] CYTOLOGY REPORT NAME: JONATHON JAY SURG PATH #: [id number] MR #: [id number] ALT ID #: BILLING #: [id number] LOCATION: 63 DATE OF PROCEDURE: 11/14/2017 AGE:72 SEX: F DATE RECEIVED: 11/15/2017 : 1945TIME RECEIVED:09:04 PHYSICIAN: KAUSHIK GUTIERREZ [facility] DATE OF REPORT: 11/16/2017 COPY TO: KENYA RAMEY MD BRICE J ZOGLEMAN, MD CROSSER, MICHAEL [facility] DATE OF PRINTIN11/16/2017 Material Received: A: FNA Lung-Right Mainstem History: 72 year old female, history of large mediastinal mass. Gross Description: ( 4 DQ direct smear, 4 Pap direct smear, 1 cell block) Rapid determination of adequacy was performed by the car mechanic helper, TANNER, on Diff-Quik stained slide(s). Pass one, two and three not adequate for evaluation.Pass four adequate for evaluation.Pass five, six, and seven into RPMI. ################################################## ###################### Final Diagnosis: A. 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 See comment. Please also see concurrent cytology report ([id number]). Comment: Extensive crush artifact is present. Immunohistochemical stains for figueredo-cytokeratin, CAM5.2, CD34, desmin, TTF-1, PAX-8, SOX-10, calretinin, and Ki-67 performed on the cell block are non-contributory due to a lack of lesional tissue. A biopsy/more extensive sampling is recommended for a definitive diagnosis. Pursuant to the [facility] Servicer Program at the [facility] Pathology Department, selected slides from this [...] Performing Laboratory Blood KU MAIN LAB [address] [place] [address] * CBC AND DIFF (11/14/2017 5:34 AM) [...] Performing Laboratory Blood KU MAIN LAB [address] [place] [address] * CHEST 2 VIEWS (11/13/2017 7:00 AM) [...] Radiant Results - 11/13/2017 12:02 PM SENIOR PRODUCT ANALYST Procedure: CHEST 2 VIEWS Clinical Indication: Cough. [...] Performing Laboratory Blood KU MAIN LAB [address] [place] [address] * CBC AND DIFF (11/13/2017 6:02 AM) [...] Performing Laboratory Blood KU MAIN LAB [address] [place] [address] * ENDOSCOPIC ULTRASOUND REPORT (11/12/2017 6:12 PM) Component Value Ref Range Provation Report Patient Name: Pierre Garner Procedure Date: 11/12/2017 6:12 PM CSN: [id number] Date of : 1945 Gender: Female Attending Physician: Michael Wade MD Procedure: Upper EUS Indications:Gorman spected mass in mediastinum on chest CT Providers: Michael Wade MD (Doctor), Truong Burrell MD (Fellow), Miri Hairston (Nurse), Randi Levin Mixing Pan Tender (Mixing Pan Tender) Referring Physician:Referral Self Medications:Mo nitored Anesthesia Care [...] minutes 23 seconds Procedure Code(s):--- Professional --- 80656, Esophagogastroduodenoscopy, flexible, transoral; with endoscopic ultrasound examination, including the esophagus, stomach, and either the duodenum or a surgically altered stomach where the jejunum is examined distal to the anastomosis Diagnosis Code(s):--- Professional --- J98.59, Other diseases of mediastinum, not elsewhere classified R93.8, Abnormal findings on diagnostic imaging of other specified body structures CPT copyright 2016 [employer]. All rights reserved. The codes documented in this report are preliminary and upon crusher plant operator review may be revised to meet current [...] Performing Laboratory Blood [facility]U MAIN LAB [address] [place] [address] * CBC AND DIFF (11/12/2017 5:14 AM) [...] Performing Laboratory Blood KU MAIN LAB [address] [place] [address] * COMPREHENSIVE METABOLIC PANEL (11/11/2017 5:33 AM) [...] Specimen Performing Laboratory Blood MAIN LAB [address] [place] [id number] * CBC AND DIFF (11/11/2017 5:33 AM) [...] Specimen Performing Laboratory Blood MAIN LAB [address] [place] [address] * COMPREHENSIVE METABOLIC PANEL (11/10/2017 4:36 AM) [...] Specimen Performing Laboratory Blood MAIN LAB [address] [place] [address] * CBC AND DIFF (11/10/2017 4:36 AM) [...] Specimen Performing Laboratory Blood MAIN LAB [address] [place] [address] * NON-GARMENT CUTTER CYTOLOGY (BODY FLUIDS/TISSUE) (11/09/2017 2:22 PM) Component Value Ref Range Cytology [facility] [email or web address] Department of Pathology and Laboratory Medicine [address] [place] [address] Surgical Pathology Office:[phone]:[phone] CYTOLOGY REPORT NAME: JONATHON JAY CYTOLOGY #: [id number] MR #: [id number] ALT ID #: BILLING #: [id number] LOCATION: 63 DATE OF PROCEDURE: 11/09/2017 AGE:72 [...] Radiant Results - 11/09/2017 5:41 PM SENIOR PRODUCT ANALYST PET/CT NECK, CHEST, ABDOMEN AND PELVIS CLINICAL [...] effusion MEDICATIONS: 5 mL subcutaneous 2% lidocaine INSULATING MACHINE OPERATOR: Amadou Kaur M.D., M.D. The risks, benefits, [...] Radiant Results - 11/12/2017 10:39 AM SENIOR PRODUCT ANALYST Ultrasound-guided Thoracentesis CLINICAL INDICATION: Symptomatic pleural effusion MEDICATIONS: 5 mL subcutaneous 2% lidocaine INSULATING MACHINE OPERATOR: Amadou Kaur M.D., M.D. The risks, benefits, [...] Radiant Results - 11/09/2017 12:28 PM SENIOR PRODUCT ANALYST Chest, single view with inspiration and expiration [...] Radiant Results - 11/09/2017 5:47 PM SENIOR PRODUCT ANALYST CHEST IMMEDIATE POST PROCEDURE INSP/EXP Clinical Indication: [...] Performing Laboratory Thoracentesis Fluid MAIN LAB [address] [place] [address] * PLEURAL FLUID TOTAL PROTEIN (11/09/2017 10:36 AM) Component Value Ref Range Pleural Fluid Total 3.6 (H)Comment: Serum to pleural fluid protein <1.1 g/ dL Protein gradient >3.1 g/dL is suggestive of an exudate Specimen Performing Laboratory Pleural fluid - [facility] Thoracentesis Fluid [address] [place] [address] * PLEURAL FLUID PH (11/09/2017 10:36 AM) Component Value Ref Range Pleural Fluid Ph 7.45 (L) 7.60 - 7.66 Specimen Performing Laboratory Pleural fluid - [facility] LAB Thoracentesis Fluid [address] [place] [address] * PLEURAL FLUID LACTATE DEHYDROGENASE (11/09/2017 10:36 AM) Component Value Ref Range Pleural Fluid Lactate 398 (H)Comment: Higher levels suggestive of 67 - 140 U/L Dehydrogenase exudate Specimen Performing Laboratory Pleural fluid - [facility] LAB Thoracentesis Fluid [address] [place] [address] * PLEURAL FLUID GLUCOSE (11/09/2017 10:36 AM) Component Value Ref Range Pleural Fluid Glucose 102 (H) 70 - 100 mg/dL Comment: Glucose <60 mg/dL associated withparapneumonic effusion, tuberculosis, malignancy, empyema, and rheumatoid disease Specimen Performing Laboratory Pleural fluid - [facility] LAB Thoracentesis Fluid [address] [place] [address] * PLEURAL FLUID ALBUMIN (11/09/2017 10:36 AM) Component Value Ref Range Pleural Fluid Albumin 2.4Comment: Pleural fluid albumin gradient >1.2 g/ dL g/dL is suggestive of an exudate Specimen Performing Laboratory Pleural fluid - [facility] Thoracentesis Fluid [address] [place] [address] * CULTURE-WOUND/TISSUE/FLUID(AEROBIC ONLY)W/SENSITIVITY (11/09/2017 10:36 AM) Component Value Ref Range Battery Name ROUTINE CULTURE Specimen Description THORACENTESIS FLUID Special Requests NONE Direct Gram Stain FEW NEUTROPHILS NO ORGANISMS SEEN Culture NO GROWTH 5 DAYS Report Status FINAL 11/14/2017 Specimen Performing Laboratory Pleural fluid [facility] Thoracentesis Fluid [address] [place] [address] * CULTURE-ANAEROBIC (11/09/2017 10:36 AM) Component Value Ref Range Battery Name ANAEROBE CULTURE Specimen Description THORACENTESIS FLUID Special Requests NONE Culture NO ANAEROBES ISOLATED Report Status FINAL 11/14/2017 Specimen Performing Laboratory Pleural fluid - [facility] Thoracentesis Fluid [address] [place] [address] * CELL COUNT W/DIFF-FLUIDS (11/09/2017 10:36 AM) [...] report. Specimen Performing Laboratory Pleural fluid - [facility] Thoracentesis Fluid [address] [place] [address] * LEGIONELLA ANTIGEN URINE,RAN (11/09/2017 7:22 AM) Component Value Ref Range Battery Name LEGIONELLA URINE ANTIGEN Specimen Description URINE Special Requests NONE Antigen NEGATIVE Report Status FINAL 11/09/2017 Specimen Performing Laboratory Urine [facility] [address] [place] [address] * STREPTOCOCCUS PNEUMO AG, URINE (11/09/2017 7:22 AM) Component Value Ref Range Battery Name STREP PNEUMO AG, UR Specimen Description URINE Special Requests NONE Antigen NEGATIVE Report Status FINAL 11/09/2017 Specimen Performing Laboratory Urine [facility] [address] [place] [address] * RVP VIRAL PANEL PCR (11/09/2017 3:05 [...] NOT DETECTED Specimen Performing Laboratory Nasopharyngeal Swab [facility] [address] [place] [address] * BNP (B-TYPE NATRIURETIC PEPTI) (11/09/2017 2:55 AM) Component Value Ref Range B Type Natriuretic 28.0 0 - 100 PG/ML Peptide Specimen Performing Laboratory Blood MAIN LAB [address] [place] [address] * CULTURE-BLOOD W/SENSITIVITY (11/09/2017 2:55 AM) Component Value Ref Range Battery Name BLOOD CULTURE Specimen Description BLOOD RIGHT FA Special Requests NONE Culture NO GROWTH 5 DAYS Report Status FINAL 11/15/2017 Specimen Performing Laboratory Blood MAIN LAB [address] [place], [place] [id number] * CULTURE-BLOOD W/SENSITIVITY (11/09/2017 2:55 AM) Component Value Ref Range Battery Name BLOOD CULTURE Specimen Description BLOOD LEFT ANTECUBITAL Special Requests NONE Culture NO GROWTH 5 DAYS Report Status FINAL 11/15/2017 Specimen Performing Laboratory Blood MAIN LAB [address] [place] [address] * TSH WITH FREE T4 REFLEX (11/09/2017 2:55 AM) Component Value Ref Range TSH 1.008 0.35 - 5.00 MCU/ML Specimen Performing Laboratory Blood MAIN LAB [address] [place] [address] * TROPONIN-I (11/09/2017 2:55 AM) Component Value Ref Range Troponin-I 0.01 0.0 - 0.05 NG/ML Specimen Performing Laboratory Blood MAIN LAB [address] [place] [address] * COMPREHENSIVE METABOLIC PANEL (11/09/2017 2:55 AM) [...] Performing Laboratory Blood [facility]U MAIN LAB [address] [place] [address] * PROTIME INR (PT) (11/09/2017 2:55 AM) Component Value Ref Range INR 1.1 0.8 - 1.2 Specimen Performing Laboratory Blood KU MAIN LAB [address] [place] [address] * CBC AND DIFF (11/09/2017 2:55 AM) [...] Specimen Performing Laboratory Blood MAIN LAB [address] [place] [address] * GENERAL RAD CHEST EXTERNAL IMAGING (11/08/2017 [...] Oral, EVERY 6 HOURS PRN, 06:23 SENIOR PRODUCT ANALYST Starting Sun11/09/17 at 0218, Until 11/17/17 at 1909, Pain non-opioid: may be used alone or in combination with opioid analgesia, TOTAL ACETAMINOPHEN DOSE NOT TO EXCEED 4GM DAILY Given 11/13/2017 650 mg 12:33 SENIOR PRODUCT ANALYST Given 11/13/2017 650 mg 20:01 SENIOR PRODUCT ANALYST cyclobenzaprine (FLEXERIL) tablet 5 mg Given 11/12/2017 5 mg 5 mg, Oral, ONCE, 1 dose, 11/12/17 at 21:19 SENIOR PRODUCT ANALYST 2115 cyclobenzaprine (FLEXERIL) tablet 5 mg Given 11/13/2017 5 mg 5 mg, Oral, THREE TIMES DAILY PRN, 20:00 SENIOR PRODUCT ANALYST Starting Tu11/13/17 at 1020, Until Sun11/14/17 at 1735, Muscle Cramps, Spasms Given 11/14/2017 5 mg 08:03 SENIOR PRODUCT ANALYST Given 11/14/2017 5 mg 12:24 SENIOR PRODUCT ANALYST docusate (COLACE) capsule 100 mg Given 11/09/2017 100 mg 100 mg, Oral, DAILY, First dose on Sun 08:52 SENIOR PRODUCT ANALYST 11/09/17 at 0900, Until Discontinued, Hold for loose stools. enalapril (VASOTEC) tablet 10 mg Given 11/12/2017 10 mg 10 mg, Oral, DAILY, First dose on Sun 09:18 SENIOR PRODUCT ANALYST 11/09/17 at 0900, Until Discontinued Given 11/13/2017 10 mg 09:04 SENIOR PRODUCT ANALYST Given 11/14/2017 10 mg 08:03 SENIOR PRODUCT ANALYST enalapril (VASOTEC) tablet 10 mg Given 11/16/2017 10 mg 10 mg, Oral, DAILY, First dose on Sun 08:01 SENIOR PRODUCT ANALYST 11/16/17 at 0900, Until Discontinued Given 11/17/2017 10 mg 08:55 SENIOR PRODUCT ANALYST enoxaparin (LOVENOX) syringe 40 mg Given 11/10/2017 40 mg Arm, Right 40 mg, Subcutaneous, DAILY, First dose 20:29 SENIOR PRODUCT ANALYST on 11/10/17 at 2100, Until Discontinued, For patients undergoing surgery: Consult physician in advance -- enoxaparin is an anticoagulant and may need to be held for 12hr prior to surgery or invasive procedures. NOTE: This is a HIGH ALERT Medication. fentaNYL citrate PF (SUBLIMAZE) Given 11/09/2017 50 mcg injection 50 mcg 11:03 SENIOR PRODUCT ANALYST 50 mcg, Intravenous, ONCE, 1 dose, Sun11/09/17 at 1100 hydroCHLOROthiazide (HYDRODIURIL) tablet Given 11/11/2017 12.5 mg 12.5 mg 08:17 SENIOR PRODUCT ANALYST 12.5 mg, Oral, EVERY MORNING, First dose on Sun11/09/17 at 0900, Until Discontinued Given 11/12/2017 12.5 mg 09:18 SENIOR PRODUCT ANALYST Given 11/13/2017 12.5 mg 09:04 SENIOR PRODUCT ANALYST hydroCHLOROthiazide (HYDRODIURIL) tablet Given 11/16/2017 12.5 mg 12.5 mg 08:01 SENIOR PRODUCT ANALYST 12.5 mg, Oral, DAILY, First dose on Sun11/16/17 at 0900, Until Discontinued Given 11/17/2017 12.5 mg 08:55 SENIOR PRODUCT ANALYST lactated ringers infusion Given - New 11/14/2017 1,000 mL 20 mL/hr 1,000 mL, 1,000 mL, Intravenous, at 20 Bag 13:30 SENIOR PRODUCT ANALYST mL/hr, ONCE, 1 dose, Sun11/14/17 at 1330, GI Procedure Area Only levofloxacin (LEVAQUIN) 750 mg/150 mL Given - New 11/09/2017 750 mg IVPB Bag 03:52 SENIOR PRODUCT ANALYST 750 mg, 150 mL, Administer over 90 Minutes, Intravenous, EVERY 24 HOURS, First dose on Sun11/09/17 at 0330, Until Discontinued Given - New Bag 11/10/2017 750 mg 03:04 SENIOR PRODUCT ANALYST levothyroxine (SYNTHROID) tablet 137 mcg Given 11/15/2017 137 mcg 137 mcg, Oral, DAILY 30MIN BEFORE 08:18 SENIOR PRODUCT ANALYST BREAKFAST, First dose on Sun11/09/17 at 0630, Until Discontinued, Give 1 hour before a meal. If patient is receiving tube feedings, hold tube feed 1hr before and 1hr after dose. Given 11/16/2017 137 mcg 07:52 SENIOR PRODUCT ANALYST Given 11/17/2017 137 mcg 06:13 SENIOR PRODUCT ANALYST nystatin (MYCOSTATIN) topical cream Given 11/10/2017 Topical, TWICE DAILY PRN, Starting Sat 21:26 SENIOR PRODUCT ANALYST 11/10/17 at 2055, Until 11/17/17 at 1909, Rash, Right Breast Given 11/13/2017 20:02 SENIOR PRODUCT ANALYST Given 11/13/2017 20:04 SENIOR PRODUCT ANALYST RP DX F-18 FDG injection 15 millicurie Given 11/09/2017 16.5 15 millicurie, Intravenous, ONCE, 1 11:30 SENIOR PRODUCT ANALYST millicuries dose, 11/09/17 at 1130 tetracaine 2% in chlorobutanol 0.4% Given 11/12/2017 15 mL solution 15 mL 18:06 SENIOR PRODUCT ANALYST 15 mL, Oral, ONCE, 1 dose, 11/12/17 at 1815, GI Procedure Area Only triamcinolone acetonide (KENALOG) 0.1 % Given 11/15/2017 topical ointment 20:18 SENIOR PRODUCT ANALYST Topical, TWICE DAILY, First dose on 11/11/17 at 1100, Until Discontinued, Apply to right chest Given 11/16/2017 10:00 SENIOR PRODUCT ANALYST Given 11/17/2017 06:13 SENIOR PRODUCT ANALYST verapamil SR (CALAN-SR) tablet 240 mg Given 11/12/2017 240 mg 240 mg, Oral, DAILY, First dose on Sun 09:18 SENIOR PRODUCT ANALYST 11/09/17 at 0900, Until Discontinued Given 11/13/2017 240 mg 09:04 SENIOR PRODUCT ANALYST Given 11/14/2017 240 mg 08:03 SENIOR PRODUCT ANALYST in this encounter
--- OUTSIDE RECORDS SUMMARY | 2018-01-15 14:44 | XMS REPORT | Encounter Summary ---
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 Encounter Details Date Type Department Care Team Description 11/14/2017 Surgery Gastrointenstinal Kaushik Gutierrez MD BRONCHOSCOPY WITH Endoscopy [address] ULTRASOUND [address] [place] [address] [place] [address] [phone] Social History Tobacco Use Types Packs/Day Years Used Date Never Smoker Smokeless Tobacco: Never Used Alcohol Use Drinks/Week oz/Week Comments No Sex Assigned at Date Recorded Not on file as of this encounter Last Filed Vital Signs Vital Sign Reading Time Taken Blood Pressure 142/75 11/17/2017 9:00 AM PRIMARY CARE NURSE PRACTITIONER Pulse 99 11/16/2017 8:00 PM PRIMARY CARE NURSE PRACTITIONER Temperature 36.8 C (98.2 F) 11/17/2017 9:00 AM PRIMARY CARE NURSE PRACTITIONER Respiratory Rate - - Oxygen Saturation 93% 11/17/2017 4:00 PM PRIMARY CARE NURSE PRACTITIONER Inhaled Oxygen - - Concentration Weight 90.4 kg (199 lb 4.7 oz) 11/14/2017 5:33 PM PRIMARY CARE NURSE PRACTITIONER Height 154.9 cm (5' 1") 11/09/2017 12:13 AM PRIMARY CARE NURSE PRACTITIONER Body Mass Index 37.66 11/14/2017 5:33 PM PRIMARY CARE NURSE PRACTITIONER in this encounter Functional Status Functional Status Response Date of Assessment Does the patient have a hearing impairment: No 11/09/2017 as of this encounter Discharge Summaries * Amadou Encarnacion MD - 11/17/2017 2:07 PM PRIMARY CARE NURSE PRACTITIONER Formatting of this note may be different from the original. Physician Discharge Summary Name: Jonathon Jay Date Of : 1945 Age: 72 years Admit date: 11/09/2017 Discharge date: 11/17/2017 Attending Physician: Dr. Angela Monson Service: Med ICU 1 - 9777 Physician Summary completed by: Amadou Encarnacion MD [...] chest with pleural effusion. She transferred to [facility] for CTS consultation. She [...] or concerns regarding your hospital stay. Call [phone] Discharging attending physician: ANGELA MONSON [[id number]] Regular Diet You have no dietary restriction. Please continue with a healthy balanced diet. Return Appointment - Appointment with Dr. Quintero scheduled for Sunday11/21/17 at 8:00am [facility] Address: [address] [place] [address] Current Discharge Medication List START taking these [...] partner) scheduled for Sunday at 8:00[place] [address] Pending items needing follow up: Signed: Amadou Encarnacion MD 11/17/2017 cc: Primary Care Physician: Tad Campbell Referring physicians: Self, Referral Additional provider(s): in this encounter Discharge Instructions * Discharge Instr - Appointments - Amadou Encarnacion MD - 11/17/2017 11:55 AM PRIMARY CARE NURSE PRACTITIONER - Appointment with Dr. Quintero (Dr. Middleton's partner) scheduled for 11/21 at 8:00am [place] [address] in this encounter Medications at Time of [...] Dayanara Harris RN - 11/17/2017 2:40 PM PRIMARY CARE NURSE PRACTITIONER 0700: Report received and care assumed. Bedside safety check completed. Pt AOx4 and denies pain at this time. 0800: Assessment completed and documented per ICU flowsheet. VSS per pt trends. Pt currently on 1L NC. Will titrate down as able. 1200: RT at bedside for pulse oximetry with exercise. 1300: Dr Mnoson at bedside and verbal okay for pt [...] at bedside [facility]. 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 Workup: - Biopsy 10/26/17 in [place], [place] - [facility] [...] >60 >60 mL/min Glucose: (!) 109 (11/17/17 2120) Radiology and other Diagnostics Review: Pertinent radiology reviewed. Amadou Encarnacion MD PGY1 Emergency Medicine Pager [phone] Associated attestation - Angela Monson MD - 11/18/2017 11:50 PM CDT Formatting of this note may be different from the original. ATTESTATION I personally performed the zaapta portions of the E/M visit, discussed case with resident and concur with resident documentation of history, physical exam, assessment, and treatment plan unless otherwise noted. Staff name: Angela Monson MD Date: 11/18/2017 * Debora Hernandez APRN - 11/16/2017 9:09 AM PRIMARY CARE NURSE PRACTITIONER Med-Onc Quick Note: - Appointment with Dr. Quintero (Dr. Middleton's partner) scheduled for 11/21 at 8:00am - Awaiting pathology results from biopsy obtained on 11/15 for definitive treatment planning [facility] Address: [facility] [place] [address] Jim Hernandez APRN [phone] * Tani Munson MD - 11/16/2017 5:55 AM PRIMARY CARE NURSE PRACTITIONER Formatting of this note may be different [...] Suspect sarcoma. Workup: - Biopsy 10/26/17 in [place], [place] - path review of [facility] [...] Dr. Jeimy Encarnacion MD PGY1 Emergency Medicine 4766 ATTESTATION I personally performed the zapata portions [...] Amadou Encarnacion MD PGY1 Emergency Medicine Pager [phone] * Maegan Orr, RT - 11/15/2017 6:11 PM PRIMARY CARE NURSE PRACTITIONER Formatting of this note may be different [...] Date: 11/15/2017 Zapata AC=Airway clearance AM=Aerosolized medication BA=[place] aerosol DB&C=Deep breathe & cough FEV1=Forced expiratory volume in first second) IC=Inspiratory capacity LE=Lung expansion MDI=Metered dose inhaler Neb=Nebulizer O2=Oxygen Oxim=Oximetry PEFR=Peak expiratory flow rate JUNIOR PARALEGAL=Rapid Response Team * Leonarda Watkins, AC - 11/15/2017 6:00 PM PRIMARY CARE NURSE PRACTITIONER 1800 Assumed care of pt from Cat Brendon SHEN. Assessment complete, vss. * Richa Olivas, AC - 11/15/2017 5:40 PM PRIMARY CARE NURSE PRACTITIONER 0730 - assumed care of patient, bedside safety check completed 0800 - assessment completed and documented per ICU flow sheet. Patient alert & oriented x4, follows commands, denies pain at this time. All VSS per patient trends, remains on 6L HFNC, will titrate as tolerated. Will continue to monitor. * Emilee Camargo MD - 11/15/2017 11:44 AM PRIMARY CARE NURSE PRACTITIONER CTS Progress Note Case reviewed in multidisciplinary [...] diagnosis. 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 Patient already established with Dr. Middleton at [facility]. Will arrange ongoing follow up. Patient discussed [...] Diagnostics Review: Pertinent radiology reviewed. Debora Hernandez, PUBLIC WORKS DIRECTOR [phone] * Tani Munson MD - 11/15/2017 6:51 AM PRIMARY CARE NURSE PRACTITIONER Formatting of this note may be different [...] sarcoma. Workup: - S/p biopsy 10/26/17 in [place], [place] with path review of [facility] [...] Dr. Jeimy Encarnacion MD PGY1 Emergency Medicine 5326 ATTESTATION I personally performed the zapata portions [...] Amadou Encarnacion MD PGY1 Emergency Medicine Pager [phone] * Angela Del Castillo, AC - 11/14/2017 7:49 PM PRIMARY CARE NURSE PRACTITIONER 1930: Assumed care of patient. Bedside safety [...] Richa Olivas RN - 11/14/2017 6:36 PM PRIMARY CARE NURSE PRACTITIONER 1730 - patient arrived to 63 from GI/Endo. Bedside safety check completed. Assessment completed and documented per ICU flow sheet. Patient alert & oriented x4, follows commands, denies pain at this time. Placed on HFNC, will titrate as tolerated. All other VSS per patient trends, will continue to monitor. * Elizabeth Navarrete RN - 11/14/2017 5:42 PM PRIMARY CARE NURSE PRACTITIONER Patient arrived to room # (6314) via [...] Harley Niño MD - 11/14/2017 11:10 AM PRIMARY CARE NURSE PRACTITIONER Formatting of this note may be different [...] atypical spindle cell neoplasm. She presented to [facility] in [place], [place] with dyspnea and dry cough, found to have increased right-sided pleural effusion and atelectasis, transferred to [facility]. S/p thoracentesis 11/09 with improvement in dyspnea. Planning on obtaining more tissue for diagnosis based on recommendation of oncology. 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 Workup: - S/p biopsy 10/26/17 in [place], [place] with path review of [facility] [...] Harley Niño MD - 11/13/2017 4:22 PM PRIMARY CARE NURSE PRACTITIONER Formatting of this note may be different [...] atypical spindle cell neoplasm. She presented to [facility] in [place], [place] with dyspnea and dry cough, found to have increased right-sided pleural effusion and atelectasis, transferred to [facility]. S/p thoracentesis 11/09 with improvement in dyspnea. Planning on obtaining more tissue for diagnosis based on recommendation of oncology. 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 Workup: - S/p biopsy 10/26/17 in [place], [place] with path review of [facility] [...] Opal Arellano MD - 11/12/2017 10:09 PM PRIMARY CARE NURSE PRACTITIONER EUS on 11/12/2017 with the axial mass [...] Harley Niño MD - 11/12/2017 8:41 PM PRIMARY CARE NURSE PRACTITIONER Formatting of this note may be different [...] atypical spindle cell neoplasm. She presented to [facility] in [place], [place] with dyspnea and dry cough, found to have increased right-sided pleural effusion and atelectasis, transferred to [facility]. S/p thoracentesis 11/09 with improvement in dyspnea. Planning on obtaining more tissue for diagnosis, with EGD/EUS planned for tomorrow, 11/12. 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 Workup: - S/p biopsy 10/26/17 in [place], [place] with path review of [facility] [...] Christiano Lassiter, AC - 11/12/2017 3:05 PM PRIMARY CARE NURSE PRACTITIONER 1705 - Pt. left 6411 to GI lab. 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 Debora Hernandez, PUBLIC WORKS DIRECTOR [phone] * Dianne Cazares, RT - 11/12/2017 10:20 AM PRIMARY CARE NURSE PRACTITIONER Formatting of this note may be different [...] Date: 11/12/2017 Zapata AC=Airway clearance AM=Aerosolized medication BA=[place] aerosol DB&C=Deep breathe & cough FEV1=Forced expiratory volume in first second) IC=Inspiratory capacity LE=Lung expansion MDI=Metered dose inhaler Neb=Nebulizer O2=Oxygen Oxim=Oximetry PEFR=Peak expiratory flow rate JUNIOR PARALEGAL=Rapid Response Team * Kane Castellano MD - 11/11/2017 1:10 PM PRIMARY CARE NURSE PRACTITIONER Formatting of this note may be different [...] atypical spindle cell neoplasm. She presented to [facility] in [place], [place] with dyspnea and dry cough, found to have increased right-sided pleural effusion and atelectasis, transferred to [facility]. S/p thoracentesis 11/09 with improvement in dyspnea. Planning on obtaining more tissue for diagnosis, with EGD/EUS planned for tomorrow, 11/12. 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 Workup: - S/p biopsy 10/26/17 in [place], [place] with path review of [facility] [...] Full code Hero Castellano MD Hospitalist Pager [phone] Subjective Jonathon Pierre is a 72 y.o. [...] * Loretta Chaudhry - 11/10/2017 8:36 PM PRIMARY CARE NURSE PRACTITIONER Med pvt paged regarding pt increased concern about rash under right breast and on chest. Rash is warm to touch and sensitive. Pt c/o constant burning sensation. Orders placed for nystatin topical cream. This RN routinely monitoring. * Montez Roger, RN - 11/10/2017 7:21 PM PRIMARY CARE NURSE PRACTITIONER Patient called this RN into room to assess newly discovered rash under right breast. Rash is slightly warmer than surrounding skin upon assessment. Patient states rash is a slight burning sensation but not itching. Med Private paged. Order to continue to monitor. * Kane Castellano MD - 11/10/2017 12:37 PM PRIMARY CARE NURSE PRACTITIONER Formatting of this note may be different [...] atypical spindle cell neoplasm. Who presented to [facility] in [place], [place] with dyspnea and dry cough,found to have increased right-sided pleural effusion and atelectasis. S/p thoracentesis 11/09 with improvement in dyspnea. Planning on CTS consult, obtaining more tissue for diagnosis/ EGD/EUS on Sunday. 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 Workup: - S/p biopsy 10/26/17 in [place], [place] with path review of [facility] [...] Full code Hero Castellano MD Hospitalist Pager [phone] Subjective Jonathon Pierre is a 72 y.o. [...] Federica Goff, PT - 11/09/2017 2:40 PM PRIMARY CARE NURSE PRACTITIONER PHYSICAL THERAPY NOTE Per discussion with RN [...] * Miri Thao - 11/09/2017 1:39 PM PRIMARY CARE NURSE PRACTITIONER OCCUPATIONAL THERAPY NO TREATMENT NOTE Patient denies [...] * Marisa Bush - 11/09/2017 11:24 AM PRIMARY CARE NURSE PRACTITIONER Pt left IR in bed with [employer] personal. * Yasemin Barlow RN - 11/09/2017 11:07 AM PRIMARY CARE NURSE PRACTITIONER Report called to AC Graves No questions and concerns. Immediate chest xray read by Dr. Hyatt. Pt. Cleared to go back to home unit. * Reid Castillo RN - 11/09/2017 9:42 AM PRIMARY CARE NURSE PRACTITIONER Vital signs q 15 minutes x 4 [...] Faviola Serrato RN - 11/09/2017 3:44 AM PRIMARY CARE NURSE PRACTITIONER Paged regarding a 2.15 second pause. Patient is asymptomatic at this time. Dr. Owen returned page will order an EKG. * Faviola Serrato RN - 11/09/2017 12:59 AM PRIMARY CARE NURSE PRACTITIONER Patient arrived to room # (1472) via cart accompanied by EMS. Patient transferred [...] Jayson Lange MD - 11/14/2017 5:40 PM PRIMARY CARE NURSE PRACTITIONER Formatting of this note may be different [...] atypical spindle cell neoplasm. She presented to [facility] in [place], [place] with dyspnea and dry cough, found to have increased right-sided pleural effusion and atelectasis, transferred to [facility]. S/p thoracentesis 11/09 with improvement in dyspnea. Planning on obtaining more tissue for diagnosis, with EGD/EUS planned for 11/12. 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 Workup: - S/p biopsy 10/26/17 in [place], [place] with path review of [facility] of [...] Dr. Erik Encarnacion MD PGY1 Emergency Medicine 6384 ICU Attending Note Jonathon Jay Is critically [...] Amadou Encarnacion MD PGY1 Emergency Medicine Pager [phone] * Kaushik Gutierrez MD - 11/14/2017 3:34 PM PRIMARY CARE NURSE PRACTITIONER Formatting of this note may be different [...] Relevant labs reviewed Kaushik Gutierrez MD Pager [phone] * Pantera Ortiz, MARIXA-REPAIRER GENERAL - 11/09/2017 9:48 AM PRIMARY CARE NURSE PRACTITIONER Formatting of this note may be different [...] Tests: Labs: Pertinent labs reviewed Pantera Ortiz APRN-REPAIRER GENERAL Pager [phone] * Kenya Ramey MD - 11/09/2017 2:23 AM PRIMARY CARE NURSE PRACTITIONER Formatting of this note may be different [...] [ pending outside consultation with [facility]]. Patient presented to [facility] in [place], [place] for shortness of breath and dry [...] [ pending outside consultation with [facility]]. Patient presented to [facility] in [place], [place] for shortness of breath and dry cough. Dyspnea has been ongoing for the last month or so but got worse after the biopsy on 10/26. Patient denies having phlegm, hemoptysis, or chest pain. She was found to have increased right-sided pleural effusion on CT chest without contrast. Her saturation was 88% on room air. She was transferred to [facility] for CTS consultation. Patient states that she has extensive family history of cancer: her father had colon, lung and liver cancer, and her mother had leukemia. She never smoked cigarettes. 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 She lives by herself, and is able to take care of herself. Her kids live near her, in the area of [place]. Past Medical History: Diagnosis Date HTN (hypertension) [...] reviewed. Susana Woo MD Internal Medicine Pager [phone] in this encounter Consult Notes * Charline Alves DO - 11/13/2017 11:08 AM PRIMARY CARE NURSE PRACTITIONER Associated Order(s): CONSULT PULMONARY/CRITICAL CARE PHYSICIAN Formatting [...] who presented with dyspnea and cough to [facility] in [place], [place]. She was found to have a [...] breath so presented to the ED in [place], [place] and then was transferred here. She [...] Elizabeth Alves DO Pulmonary/Critical Care Pager # [phone] 11/13/2017 Associated attestation - Akash Winn MD - 11/13/2017 10:54 PM PRIMARY CARE NURSE PRACTITIONER Formatting of this note may be different [...] Emilee Camargo MD - 11/10/2017 4:00 PM PRIMARY CARE NURSE PRACTITIONER Associated Order(s): CONSULT CARDIOTHORACIC SURGERY PHYSICIAN Formatting of this note may be different from the original. CTS CONSULT Date of Service: 11/10/2017 Requesting Physician: Kenya Ramey MD Consulting Physician: Leyla Lopez MD Consult Performed By: Emilee Camargo MD HPI: Mrs. Jay is a 72 y/o F who presented to [facility] in [place], [place], for shortness of breath and a nonproductive cough. 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 She was transferred to [facility] for further workup. She [...] Leyla Lopez MD - 11/11/2017 8:53 AM PRIMARY CARE NURSE PRACTITIONER Formatting of this note may be different from the original. ATTESTATION I personally performed the zapata portions of the E/M visit, discussed case with resident and concur with resident documentation of history, physical exam, assessment, and treatment plan unless otherwise noted. Staff name: Leyla Lopez MD Date: 11/11/2017 * Bette Kurtz MD - 11/09/2017 10:37 AM PRIMARY CARE NURSE PRACTITIONER Associated Order(s): CONSULT GASTROENTEROLOGY PHYSICIAN Formatting of [...] (pending final pathology work-up), was transferred from [facility] in [place], [place] to [facility] for worsening shortness of [...] (pending final pathology work-up), was transferred from [facility] in [place], [place] to [facility] for worsening shortness of [...] Arellano MD Gastroenterology & Hepatology Fellow Pager [phone] * Debora Hernandez, PUBLIC WORKS DIRECTOR - 11/09/2017 7:33 AM PRIMARY CARE NURSE PRACTITIONER Associated Order(s): CONSULT ONCOLOGY PHYSICIAN Formatting of [...] neoplasm [pending outside consultation with [facility]- 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 female admitted in transfer from [place], [place] for CTS evaluation. Patient has newly [...] FINAL 11/09/2017 Pertinent radiology reviewed. Debora Hernandez, DEAN [phone] Associated attestation - Alvin Fink MD - 11/09/2017 5:29 PM PRIMARY CARE NURSE PRACTITIONER Attestation by Dr. Fink: I saw this [...] and therapeutic thoracentesis. Outside path review from [facility] arrived this pm - possibly a [...] - Jeny Carson - 11/16/2017 9:48 AM PRIMARY CARE NURSE PRACTITIONER Case Management Progress Note NAME:Jonathon Jay : [...] ? Medication Needs ? Financial Medicare and [place] ? Legal Legal: DPOA & Advance Directives [...] Transportation?: No ? Discharge Disposition Jeny Carson [facility] [phone] (phone) [phone] (pager) * Case Mgmt DC Plan - Lisa Jurado RN - 11/16/2017 9:11 AM PRIMARY CARE NURSE PRACTITIONER Formatting of this note may be different from the original. Case Management Progress Note NAME:Jonathon Jay : AGE: 72 y.o. ADMISSION DATE: 11/09/2017 DAYS ADMITTED: LOS: 7 days Todays Date: 11/16/2017 Plan Discharge planning Interventions ? Support Support: Pt/Family Updates re:POC or DC Plan ? Info or Referral Patient has her CPAP through [facility] in [place]. 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 ? Discharge Planning Spoke with patient Patient [...] Disposition Latrell Jurado RN MSN ONC Nurse Senior Pl Sql Developer Pg [phone] Durable Medical Equipment No service has been selected for the patient. Destination No service has been selected for the patient. Home Care No service has been selected for the patient. Dialysis/Infusion No service has been selected for the patient. * Anesthesia Post Op Day 1 - Amadou Beard DO - 11/15/2017 7:38 AM PRIMARY CARE NURSE PRACTITIONER Formatting of this note may be different [...] - Shyanne Gonzalez - 11/14/2017 1:16 PM PRIMARY CARE NURSE PRACTITIONER Formatting of this note may be different [...] been selected for the patient. Shyanne Gonzalez, [facility] *[id number] * Anesthesia Post Op Day 1 - Amadou Beard DO - 11/13/2017 7:50 AM PRIMARY CARE NURSE PRACTITIONER Formatting of this note may be different [...] Ely Mclaughlin RN - 11/11/2017 5:15 PM PRIMARY CARE NURSE PRACTITIONER Problem: Discharge Planning Goal: Participation in plan of care Outcome: Goal Ongoing Pt updated on plan of care. No plans to d/c at this time. Problem: Respiratory Impairment (Non-Ventilated Patient) Goal: Effective gas exchange Outcome: Goal Ongoing Pt on 2L NC. * Case Mgmt DC Plan - Shyanne Gonzalez - 11/09/2017 3:27 PM PRIMARY CARE NURSE PRACTITIONER Case Management Admission Assessment NAME:Jonathon Jay : [...] neoplasm [pending outside consultation with [facility]]. Patient presented to [facility] in [place], [place] for shortness of breath and dry cough, she was found to have increased right-sided pleural effusion and atelectasis on CT chest without contrast." Patient Address/Phone [address] [address] (home) Emergency Contact Extended Emergency Contact Information Primary Emergency Contact: Becky Griffiths Address: [id number] [place] [address] Mobile Relation: Daughter Preferred language: SURINAM[place] Healthcare Directive Pt does not have a [...] Primary Insurance: Medicare Secondary Insurance: Commercial insurance ([facility]) Additional Coverage: RX ([employer] and [employer]. Pt manages her own medications and is able to afford her Rx) ? Source of Income Source Of Income: Other group home income ? Financial Assistance Needed? none Psychosocial Needs ? Mental Health Mental Health History: No ? Substance Use History Substance Use History Screen: No ? Other none Current/Previous Services ? PCP Tad Campbell, , ? Pharmacy [facility] [address] [place] [id number] ? Durable Medical Equipment Durable Medical Equipment [...] ? Outpatient Therapy PT: No OT: No SHEET FINISHER: No ? Senior Living Facility/Fdc SNF: No NH: No ? Inpatient Rehab IPR: No ? Long-Term Acute Care Hospital LTACH: No ? Acute Hospital Stay Acute Hospital Stay: In the past Shyanne Gonzalez [facility] *[id number] * Procedures (Immed Post or Bedside) - Amadou Zeng MD - 11/09/2017 10:38 AM PRIMARY CARE NURSE PRACTITIONER Procedure Note Procedures Immediate Post Procedure Note [...] Faviola Serrato RN - 11/09/2017 5:22 AM PRIMARY CARE NURSE PRACTITIONER Problem: Discharge Planning Goal: Participation in plan [...] WITH 11/14/2017 Lung mass ULTRASOUND 1:30 PM PRIMARY CARE NURSE PRACTITIONER CONSULT IV THERAPY TEAM STAT 11/14/2017 12:18 PM PRIMARY CARE NURSE PRACTITIONER CONSULT IV THERAPY TEAM Routine 11/12/2017 9:26 AM PRIMARY CARE NURSE PRACTITIONER CONSULT IV THERAPY TEAM STAT 11/09/2017 5:01 AM PRIMARY CARE NURSE PRACTITIONER in this encounter Results * PROCEDURE RECORD-SCAN [...] questions. Specimen Performing Laboratory Blood MAIN LAB [address] [place] [address] * PHOSPHORUS (11/17/2017 3:35 AM) Component Value Ref Range Phosphorus 3.9 2.0 - 4.0 MG/DL Specimen Performing Laboratory Blood MAIN LAB [address] [place] [address] * MAGNESIUM (11/17/2017 3:35 AM) Component Value Ref Range Magnesium 2.0 1.6 - 2.6 mg/dL Specimen Performing Laboratory Blood MAIN LAB [address] [place] [address] * CBC AND DIFF (11/17/2017 3:35 AM) [...] Specimen Performing Laboratory Blood MAIN LAB [address] [place] [address] * COMPREHENSIVE METABOLIC PANEL (11/16/2017 5:34 AM) [...] Specimen Performing Laboratory Blood MAIN LAB [address] [place] [address] * PHOSPHORUS (11/16/2017 5:34 AM) Component Value Ref Range Phosphorus 3.8 2.0 - 4.0 MG/DL Specimen Performing Laboratory Blood MAIN LAB [address] [place] [address] * MAGNESIUM (11/16/2017 5:34 AM) Component Value Ref Range Magnesium 2.1 1.6 - 2.6 mg/dL Specimen Performing Laboratory Blood MAIN LAB [address] [place] [address] * CBC AND DIFF (11/16/2017 5:34 AM) [...] Specimen Performing Laboratory Blood MAIN LAB [address] [place] [address] * COMPREHENSIVE METABOLIC PANEL (11/15/2017 2:35 AM) [...] Performing Laboratory Blood [facility] MAIN LAB [address] [place] [address] * PHOSPHORUS (11/15/2017 2:35 AM) Component Value Ref Range Phosphorus 5.0 (H) 2.0 - 4.0 MG/DL Specimen Performing Laboratory Blood MAIN LAB [address] [place] [address] * MAGNESIUM (11/15/2017 2:35 AM) Component Value Ref Range Magnesium 2.2 1.6 - 2.6 mg/dL Specimen Performing Laboratory Blood MAIN LAB [address] [place] [address] * CBC AND DIFF (11/15/2017 2:35 AM) [...] Specimen Performing Laboratory Blood MAIN LAB [address] [place] [address] * CBC AND DIFF (11/14/2017 6:12 PM) [...] Specimen Performing Laboratory Blood MAIN LAB [address] [place] [address] * COMPREHENSIVE METABOLIC PANEL (11/14/2017 6:12 PM) [...] Specimen Performing Laboratory Blood MAIN LAB [address] [place] [address] * MAGNESIUM (11/14/2017 6:12 PM) Component Value Ref Range Magnesium 2.1 1.6 - 2.6 mg/dL Specimen Performing Laboratory Blood MAIN LAB [address] [place] [address] * PHOSPHORUS (11/14/2017 6:12 PM) Component Value Ref Range Phosphorus 4.5 (H) 2.0 - 4.0 MG/DL Specimen Performing Laboratory Blood MAIN LAB [address] [place] [address] * PTT (APTT) (11/14/2017 6:12 PM) Component Value Ref Range APTT 27.7 21.0 - 39.0 SEC Specimen Performing Laboratory Blood MAIN LAB [address] [place] [address] * PROTIME INR (PT) (11/14/2017 6:12 PM) Component Value Ref Range INR 1.2 0.8 - 1.2 Specimen Performing Laboratory Blood MAIN LAB [address] [place] [address] * BRONCHOSCOPY (11/14/2017 2:52 PM) Component Value Ref Range Provation Report Patient Name: Jonathon Jay Procedure Date: 11/14/2017 2:52 PM CSN: [id number] Date of : 1945 Gender: Female Attending Physician: Kaushik Gutierrez MD Procedure:Bronchoscopy Indications:Mediastinal mass Providers:Kaushik Gutierrez MD (Doctor), Ting Stafford, RN (Nurse), Gloria Day RN (Nurse), Oscar No, Safety Deposit Clerk (Techn ician) Referring Physician:Leyla Lopez Medications:Tetricaine 0.25%/Epinephrine [...] Specimen Performing Laboratory Blood MAIN LAB [address] [place] [address] * PROTIME INR (PT) (11/14/2017 12:30 PM) Component Value Ref Range INR 1.2 0.8 - 1.2 Specimen Performing Laboratory Blood MAIN LAB [address] [place] [address] * FINE NEEDLE ASPIRATE (FNA) (11/14/2017 9:04 AM) Component Value Ref Range Cytology [email or web address] Department of Pathology and Laboratory Medicine [address] [place] [address] Surgical Pathology Office:[phone]:[phone] CYTOLOGY REPORT NAME: JONATHON JAY SURG PATH #: [id number] MR #: [id number] ALT ID #: BILLING #: [id number] LOCATION: DATE OF PROCEDURE: 11/14/2017 AGE:72 SEX: F DATE RECEIVED: 11/15/2017 : 1945TIME RECEIVED:09:04 PHYSICIAN: KAUSHIK GUTIERREZ [facility] DATE OF REPORT: 11/16/2017 COPY TO: KENYA RAMEY MD BRICE J ZOGLEMAN, MD CROSSER, MICHAEL [facility] DATE OF PRINTIN11/16/2017 Material Received: A: FNA Lung-Right Mainstem History: 72 year old female, history of large mediastinal mass. Gross Description: ( 4 DQ direct smear, 4 Pap direct smear, 1 cell block) Rapid determination of adequacy was performed by the health it specialist, TANNER, on Diff-Quik stained slide(s). Pass one, two and three not adequate for evaluation.Pass four adequate for evaluation.Pass five, six, and seven into RPMI. ################################################## ###################### Final Diagnosis: A. 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 See comment. Please also see concurrent cytology report ([id number]). Comment: Extensive crush artifact is present. Immunohistochemical stains for figueredo-cytokeratin, CAM5.2, CD34, desmin, TTF-1, PAX-8, SOX-10, calretinin, and Ki-67 performed on the cell block are non-contributory due to a lack of lesional tissue. A biopsy/more extensive sampling is recommended for a definitive diagnosis. Pursuant to the [facility] Program at the [facility] Pathology [...] Performing Laboratory Blood [facility]U MAIN LAB [address] [place] [address] * CBC AND DIFF (11/14/2017 5:34 AM) [...] Performing Laboratory Blood [facility] MAIN LAB [address] [place] [address] * CHEST 2 VIEWS (11/13/2017 7:00 AM) [...] Interface, Radiant Results - 11/13/2017 12:02 PM PRIMARY CARE NURSE PRACTITIONER Procedure: CHEST 2 VIEWS Clinical Indication: Cough. [...] Performing Laboratory Blood [facility] MAIN LAB [address] [place] [address] * CBC AND DIFF (11/13/2017 6:02 AM) [...] Performing Laboratory Blood [facility] MAIN LAB [address] [place] [address] * ENDOSCOPIC ULTRASOUND REPORT (11/12/2017 6:12 PM) Component Value Ref Range Provation Report Patient Name: Pierre Garner Procedure Date: 11/12/2017 6:12 PM CSN: [id number] Date of : 1945 Gender: Female Attending Physician: Michael Wade MD Procedure: Upper EUS Indications:Gorman spected mass in mediastinum on chest CT Providers: Michael Wade MD (Doctor), Truong Burrell MD (Fellow), Miri Hairston (Nurse), Randi Levin, Safety Deposit Clerk (Safety Deposit Clerk) Referring Physician:Referral Self Medications:Mo nitored Anesthesia Care [...] minutes 23 seconds Procedure Code(s):--- Professional --- 00707, Esophagogastroduodenoscopy, flexible, transoral; with endoscopic ultrasound examination, including the esophagus, stomach, and either the duodenum or a surgically altered stomach where the jejunum is examined distal to the anastomosis Diagnosis Code(s):--- Professional --- J98.59, Other diseases of mediastinum, not elsewhere classified R93.8, Abnormal findings on diagnostic imaging of other specified body structures CPT copyright 2016 [employer]. All rights reserved. The codes documented in this report are preliminary and upon hims coder review may be revised to meet current [...] Specimen Performing Laboratory Blood MAIN LAB [address] [place] [address] * CBC AND DIFF (11/12/2017 5:14 AM) [...] Specimen Performing Laboratory Blood MAIN LAB [address] [place] [address] * COMPREHENSIVE METABOLIC PANEL (11/11/2017 5:33 AM) [...] Performing Laboratory Blood [facility] MAIN LAB [address] [place] [address] * CBC AND DIFF (11/11/2017 5:33 AM) [...] Specimen Performing Laboratory Blood MAIN LAB [address] [place] [address] * COMPREHENSIVE METABOLIC PANEL (11/10/2017 4:36 AM) [...] Specimen Performing Laboratory Blood MAIN LAB [address] [place] [address] * CBC AND DIFF (11/10/2017 4:36 AM) [...] Performing Laboratory Blood [facility] MAIN LAB [address] [place] [address] * NON-CUTTER MACHINE CYTOLOGY (BODY FLUIDS/TISSUE) (11/09/2017 2:22 PM) Component Value Ref Range Cytology [facility] [email or web address] Department of Pathology and Laboratory Medicine [address] [place] [address] Surgical Pathology Office:[phone]:[phone] CYTOLOGY REPORT NAME: JONATHON JAY CYTOLOGY #: [id number] MR #: [id number] ALT ID #: BILLING #: [id number] LOCATION: DATE OF PROCEDURE: 11/09/2017 AGE:72 SEX: [...] Interface, Radiant Results - 11/09/2017 5:41 PM PRIMARY CARE NURSE PRACTITIONER PET/CT NECK, CHEST, ABDOMEN AND PELVIS CLINICAL [...] effusion MEDICATIONS: 5 mL subcutaneous 2% lidocaine MINGLER OPERATOR: Matthew Bejarano M.D., Amadou Zeng M.D. [...] Interface, Radiant Results - 11/12/2017 10:39 AM PRIMARY CARE NURSE PRACTITIONER Ultrasound-guided Thoracentesis CLINICAL INDICATION: Symptomatic pleural effusion MEDICATIONS: 5 mL subcutaneous 2% lidocaine MINGLER OPERATOR: Matthew Bejarano M.D., Amadou Zeng M.D. [...] Interface, Radiant Results - 11/09/2017 12:28 PM PRIMARY CARE NURSE PRACTITIONER Chest, single view with inspiration and expiration [...] Interface, Radiant Results - 11/09/2017 5:47 PM PRIMARY CARE NURSE PRACTITIONER CHEST IMMEDIATE POST PROCEDURE INSP/EXP Clinical Indication: [...] Specimen Performing Laboratory Thoracentesis Fluid MAIN LAB [address] [place] [address] * PLEURAL FLUID TOTAL PROTEIN (11/09/2017 10:36 AM) Component Value Ref Range Pleural Fluid Total 3.6 (H)Comment: Serum to pleural fluid protein <1.1 g/ dL Protein gradient >3.1 g/dL is suggestive of an exudate Specimen Performing Laboratory Pleural fluid - [facility] Thoracentesis Fluid [address] [place] [address] * PLEURAL FLUID PH (11/09/2017 10:36 AM) Component Value Ref Range Pleural Fluid Ph 7.45 (L) 7.60 - 7.66 Specimen Performing Laboratory Pleural fluid - [facility] Thoracentesis Fluid [address] [place] [address] * PLEURAL FLUID LACTATE DEHYDROGENASE (11/09/2017 10:36 AM) Component Value Ref Range Pleural Fluid Lactate 398 (H)Comment: Higher levels suggestive of 67 - 140 U/L Dehydrogenase exudate Specimen Performing Laboratory Pleural fluid - [facility] Thoracentesis Fluid [address] [place] [address] * PLEURAL FLUID GLUCOSE (11/09/2017 10:36 AM) Component Value Ref Range Pleural Fluid Glucose 102 (H) 70 - 100 mg/dL Comment: Glucose <60 mg/dL associated withparapneumonic effusion, tuberculosis, malignancy, empyema, and rheumatoid disease Specimen Performing Laboratory Pleural fluid - MAIN LAB Thoracentesis Fluid [address] [place] [address] * PLEURAL FLUID ALBUMIN (11/09/2017 10:36 AM) Component Value Ref Range Pleural Fluid Albumin 2.4Comment: Pleural fluid albumin gradient >1.2 g/ dL g/dL is suggestive of an exudate Specimen Performing Laboratory Pleural fluid - [facility] Thoracentesis Fluid [address] [place] [address] * CULTURE-WOUND/TISSUE/FLUID(AEROBIC ONLY)W/SENSITIVITY (11/09/2017 10:36 AM) Component Value Ref Range Battery Name ROUTINE CULTURE Specimen Description THORACENTESIS FLUID Special Requests NONE Direct Gram Stain FEW NEUTROPHILS NO ORGANISMS SEEN Culture NO GROWTH 5 DAYS Report Status FINAL 11/14/2017 Specimen Performing Laboratory Pleural fluid - [facility] Thoracentesis Fluid [address] [place] [address] * CULTURE-ANAEROBIC (11/09/2017 10:36 AM) Component Value Ref Range Battery Name ANAEROBE CULTURE Specimen Description THORACENTESIS FLUID Special Requests NONE Culture NO ANAEROBES ISOLATED Report Status FINAL 11/14/2017 Specimen Performing Laboratory Pleural fluid - [facility] Thoracentesis Fluid [address] [place] [address] * CELL COUNT W/DIFF-FLUIDS (11/09/2017 10:36 AM) [...] this report. Specimen Performing Laboratory Pleural fluid [facility] Thoracentesis Fluid [address] [place] [address] * LEGIONELLA ANTIGEN URINE,RAN (11/09/2017 7:22 AM) Component Value Ref Range Battery Name LEGIONELLA URINE ANTIGEN Specimen Description URINE Special Requests NONE Antigen NEGATIVE Report Status FINAL 11/09/2017 Specimen Performing Laboratory Urine [facility] [address] [place] [address] * STREPTOCOCCUS PNEUMO AG, URINE (11/09/2017 7:22 AM) Component Value Ref Range Battery Name STREP PNEUMO AG, UR Specimen Description URINE Special Requests NONE Antigen NEGATIVE Report Status FINAL 11/09/2017 Specimen Performing Laboratory Urine MAIN LAB [address] [place] [address] * RVP VIRAL PANEL PCR (11/09/2017 3:05 [...] Performing Laboratory Nasopharyngeal Swab MAIN LAB [address] [place], [place] [address] * BNP (B-TYPE NATRIURETIC PEPTI) (11/09/2017 2:55 AM) Component Value Ref Range B Type Natriuretic 28.0 0 - 100 PG/ML Peptide Specimen Performing Laboratory Blood MAIN LAB [address] [place] [address] * CULTURE-BLOOD W/SENSITIVITY (11/09/2017 2:55 AM) Component Value Ref Range Battery Name BLOOD CULTURE Specimen Description BLOOD RIGHT FA Special Requests NONE Culture NO GROWTH 5 DAYS Report Status FINAL 11/15/2017 Specimen Performing Laboratory Blood MAIN LAB [address] [place] [address] * CULTURE-BLOOD W/SENSITIVITY (11/09/2017 2:55 AM) Component Value Ref Range Battery Name BLOOD CULTURE Specimen Description BLOOD LEFT ANTECUBITAL Special Requests NONE Culture NO GROWTH 5 DAYS Report Status FINAL 11/15/2017 Specimen Performing Laboratory Blood MAIN LAB [address] [place] [address] * TSH WITH FREE T4 REFLEX (11/09/2017 2:55 AM) Component Value Ref Range TSH 1.008 0.35 - 5.00 MCU/ML Specimen Performing Laboratory Blood MAIN LAB [address] [place] [address] * TROPONIN-I (11/09/2017 2:55 AM) Component Value Ref Range Troponin-I 0.01 0.0 - 0.05 NG/ML Specimen Performing Laboratory Blood MAIN LAB [address] [place] [address] * COMPREHENSIVE METABOLIC PANEL (11/09/2017 2:55 AM) [...] Specimen Performing Laboratory Blood MAIN LAB [address] [place] [address] * PROTIME INR (PT) (11/09/2017 2:55 AM) Component Value Ref Range INR 1.1 0.8 - 1.2 Specimen Performing Laboratory Blood MAIN LAB [address] [place] [address] * CBC AND DIFF (11/09/2017 2:55 AM) [...] Performing Laboratory Blood [facility] MAIN LAB [address] [place] [address] * GENERAL RAD CHEST EXTERNAL IMAGING (11/08/2017 [...] mg, Oral, EVERY 6 HOURS PRN, 06:23 PRIMARY CARE NURSE PRACTITIONER Starting Sun11/09/17 at 0218, Until 11/17/17 at 1909, Pain non-opioid: may be used alone or in combination with opioid analgesia, TOTAL ACETAMINOPHEN DOSE NOT TO EXCEED 4GM DAILY Given 11/13/2017 650 mg 12:33 PRIMARY CARE NURSE PRACTITIONER Given 11/13/2017 650 mg 20:01 PRIMARY CARE NURSE PRACTITIONER enalapril (VASOTEC) tablet 10 mg Given 11/16/2017 10 mg 10 mg, Oral, DAILY, First dose on Sun 08:01 PRIMARY CARE NURSE PRACTITIONER 11/16/17 at 0900, Until Discontinued Given 11/17/2017 10 mg 08:55 PRIMARY CARE NURSE PRACTITIONER hydroCHLOROthiazide (HYDRODIURIL) tablet Given 11/16/2017 12.5 mg 12.5 mg 08:01 PRIMARY CARE NURSE PRACTITIONER 12.5 mg, Oral, DAILY, First dose on Sun11/16/17 at 0900, Until Discontinued Given 11/17/2017 12.5 mg 08:55 PRIMARY CARE NURSE PRACTITIONER levothyroxine (SYNTHROID) tablet 137 mcg Given 11/15/2017 137 mcg 137 mcg, Oral, DAILY 30MIN BEFORE 08:18 PRIMARY CARE NURSE PRACTITIONER BREAKFAST, First dose on Sun11/09/17 at 0630, Until Discontinued, Give 1 hour before a meal. If patient is receiving tube feedings, hold tube feed 1hr before and 1hr after dose. Given 11/16/2017 137 mcg 07:52 PRIMARY CARE NURSE PRACTITIONER Given 11/17/2017 137 mcg 06:13 PRIMARY CARE NURSE PRACTITIONER nystatin (MYCOSTATIN) topical cream Given 11/10/2017 Topical, TWICE DAILY PRN, Starting Sat 21:26 PRIMARY CARE NURSE PRACTITIONER 11/10/17 at 2055, Until 11/17/17 at 1909, Rash, Right Breast Given 11/13/2017 20:02 PRIMARY CARE NURSE PRACTITIONER Given 11/13/2017 20:04 PRIMARY CARE NURSE PRACTITIONER triamcinolone acetonide (KENALOG) 0.1 % Given 11/15/2017 topical ointment 20:18 PRIMARY CARE NURSE PRACTITIONER Topical, TWICE DAILY, First dose on 11/11/17 at 1100, Until Discontinued, Apply to right chest Given 11/16/2017 10:00 PRIMARY CARE NURSE PRACTITIONER Given 11/17/2017 06:13 PRIMARY CARE NURSE PRACTITIONER in this encounter
--- OUTSIDE RECORDS SUMMARY | 2018-01-15 14:44 | XMS REPORT | Encounter Summary ---
Author Author [facility] Organization [facility] Address Unknown Phone Unavailable Care Team Providers Care Air Drier Name Role Phone Tad Campbell MD PCP Encounter Details Date Type Department Care Team Description 11/12/2017 Procedure Pass Gastrointenstinal Endoscopy [address] [place] [address] Social History Tobacco Use Types [...]
--- OUTSIDE RECORDS SUMMARY | 2018-01-15 14:44 | XMS REPORT | Encounter Summary ---
Author Author [facility] Organization [facility] Address Unknown Phone Unavailable Care Team Providers Care Dramatic Art Teacher Name Role Phone Tad Campbell MD PCP Encounter Details Date Type Department Care Team Description 11/13/2017 Prep for Case [facility] Kaushik Gutierrez MD Lung mass (Primary Dx) Physicians - Internal [address] [facility] [place] [address] [place] [address] [address] [facility] [phone] [place] [address] Social History Tobacco Use Types [...]
--- OUTSIDE RECORDS SUMMARY | 2018-01-15 14:44 | XMS REPORT | Encounter Summary ---
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 mass Encounter Details Date Type Department Care Team Description 11/12/2017 Anesthesia Gastrointenstinal Kaleigh Garcia MD Event Endoscopy Forwarding Address [address] [facility] Unknown [place], [place] [id number] Anesthesia Record Procedure Name Responsible Anesthesia Start Time Anesthesia Stop Time Anesthesiologist ESOPHAGOGASTRODUODENOSCOP Kaleigh Garcia MD 11/12/17 18211/12/17 1850 Y ENDOSCOPIC ULTRASOUND (N/A ) Date Time Event Comment 1823 AN Equip Check 2017 1823 Anes Start 1823 An Start Data 1824 Start Supplemental O2 1826 Anesthesia Ready 1828 Proc Start 1843 an stop data 1848 Handoff to RN I completed my SBAR handoff to the receiving nurse. 1849 An Stop Meds Name Total propofol (DIPRIVAN) 200 mg/ 20 mL 12 mg injection (VIAL) propofol (DIPRIVAN) infusion 68.33 mg sodium chloride 0.9 % infusion (1000 300 mL mL bag) * Name O2 N2O Inspired N2O * No blood administrations on file. Type Details Placement Removal Wounds 11/09/17; 1044; Right, Lower; Back; 11/09/17 1044 by Yen, 03/27 1949 by Frame, (NOT for Puncture Wound; 11/14/17; 194 Yasemin, AC Miller RN Pressure Injuries) Peripheral 11/12/17; 1020; IV Therapy; L; Forearm; 11/12/17 1020 by Shahriar , 11/17/17 1624 by ALEJANDRA Harris 20 G; No; Ultrasound; 1; 1.25 inches; AC Rjoas RN 11/17/17; 1624 in this encounter Social [...] Riggins MD - 11/12/2017 7 :21 PM LIME KILN OPERATOR Post-Anesthesia Evaluation Name: Patsy Jay : 1945 Age: 72 y.o. Sex: female Procedure Date: 11/12/2017 Procedure: Procedure(s): ESOPHAGOGASTRODUODENOSCOPY ENDOSCOPIC ULTRASOUND Surgeon: Surgeon(s): Michael Wade MD Kanakadandi, Vijay N, MBBS Post-Anesthesia Vitals BP: 152/66 (11/12 1900) Temp: 37 C (98.6 F) (11/12 1851) Pulse: 69 (11/12 1900) Respirations: 28 PER MINUTE (11/12 190) SpO2: 92 % (11/12 190) O2 Delivery: Nasal Cannula (11/12 1729) SpO2 Pulse: 82 (11/12 1900) Post Anesthesia Evaluation Note Evaluation location: Pre/Post [...] Renetta Limon MD - 11/12/2017 7:50 PM LIME KILN OPERATOR Post-Anesthesia Evaluation Attestation: I reviewed and agree the indicated post- anethesia care was provided. * Anesthesia Preprocedure Evaluation - Kaleigh Garcia MD - 11/12/2017 6:02 PM LIME KILN OPERATOR Formatting of this note may be [...] Patient currently requiring 2L NC. S/p thoracentesis 3. Likely re-accumulation of pleural fluid on R. Cardiovascular Exercise tolerance: <4 METS Hypertension, No valvular problems/murmurs No past AL, No hx of coronary artery disease No [...] consented to blood products. Plan discussed with: WAX BLEACHER. in this encounter Plan of Treatment Not on fileas of this encounter Visit Diagnoses Not on filein this encounter Administered Medications Medication Order MAR Action Action Date Dose Rate Site propofol (DIPRIVAN) infusion Given - New 11/12/2017 50 27.3 mL/hr 20 mL, Intravenous, INTRA-PROCEDURE Bag 18:27 LIME KILN OPERATOR mcg/kg/min MED(CONT), Starting 11/12/17 at 1827, Until Sun11/12/17 at 1854, Anesthesia Intra-op propofol (DIPRIVAN) injection Given 11/12/2017 12 mg INTRA-PROCEDURE MED, Starting 11/12/17 18:27 LIME KILN OPERATOR at 1827, Until Sun11/12/17 at 1854, Anesthesia Intra-op sodium chloride 0.9 % infusion Given - New 11/12/2017 INTRA-PROCEDURE MED(CONT), Starting Mon Bag 18:24 LIME KILN OPERATOR 11/12/17 at 1824, Until Sun11/12/17 at 1854, Anesthesia Intra-op in this encounter
--- OUTSIDE RECORDS SUMMARY | 2018-01-15 14:44 | XMS REPORT | Encounter Summary ---
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 She presented to [facility] in [place], [place] with dyspnea and dry cough, found to have increased right-sided pleural effusion and atelectasis, transferred to [facility]. S/p thoracentesis 3/ with improvement in [...] blood products. Plan discussed with: anesthesiologist and PATENT ATTORNEY. in this encounter Plan of Treatment Not on fileas of this encounter Visit Diagnoses Not on filein this encounter Administered Medications Medication Order MAR Action Action Date Dose Rate Site dexamethasone (DECADRON) injection Given 11/14/2017 4 mg Intravenous, INTRA-PROCEDURE MED, 15:43 PUBLIC RELATIONS STUDIES DIRECTOR Starting Sun11/14/17 at 1543, Until Sun11/14/17 at 1740, Nausea/Vomiting Injectable, Anesthesia Intra-op ePHEDrine 50 mg/mL 50 mg in sodium Bolus 11/14/2017 15 mg chloride PF 0.9% 5 mL IV syringe 16:04 PUBLIC RELATIONS STUDIES DIRECTOR 5 mL, INTRA-PROCEDURE MED(CONT), Starting Sun11/14/17 at 1602, Until Sun11/14/17 at 1740, Anesthesia Intra-op Bolus 11/14/2017 10 mg 16:10 PUBLIC RELATIONS STUDIES DIRECTOR Bolus 11/14/2017 10 mg 16:15 PUBLIC RELATIONS STUDIES DIRECTOR fentaNYL citrate PF (SUBLIMAZE) Given 11/14/2017 50 mcg injection 15:37 PUBLIC RELATIONS STUDIES DIRECTOR INTRA-PROCEDURE MED, Starting Sun11/14/17 at 1537, Until Sun11/14/17 at 1740, Pain Injectable, Anesthesia Intra-op Given 11/14/2017 50 mcg 15:45 PUBLIC RELATIONS STUDIES DIRECTOR lactated ringers infusion Given - New 11/14/2017 INTRA-PROCEDURE MED(CONT), Starting Sun Bag 15:30 PUBLIC RELATIONS STUDIES DIRECTOR 11/14/17 at 1530, Until Sun11/14/17 at 1740, Anesthesia Intra-op lidocaine (PF) injection Given 11/14/2017 50 mg INTRA-PROCEDURE MED, Starting Sun11/14/17 15:37 PUBLIC RELATIONS STUDIES DIRECTOR at 1537, Until Sun11/14/17 at 1740, Anesthesia Intra-op ondansetron (ZOFRAN) injection Given 11/14/2017 4 mg Intravenous, INTRA-PROCEDURE MED, 15:43 PUBLIC RELATIONS STUDIES DIRECTOR Starting Sun11/14/17 at 1543, Until Sun11/14/17 at 1740, Nausea/Vomiting Injectable, Anesthesia Intra-op phenylephrine in NS Injection Given 11/14/2017 200 mcg Intravenous, INTRA-PROCEDURE MED, 15:49 PUBLIC RELATIONS STUDIES DIRECTOR Starting Sun11/14/17 at 1546, Until Sun11/14/17 at 1740, Symptomatic Hypotension, Anesthesia Intra-op Given 11/14/2017 150 mcg 15:52 PUBLIC RELATIONS STUDIES DIRECTOR Given 11/14/2017 100 mcg 16:04 PUBLIC RELATIONS STUDIES DIRECTOR propofol (DIPRIVAN) injection Given 11/14/2017 150 mg INTRA-PROCEDURE MED, Starting 11/14/17 15:37 PUBLIC RELATIONS STUDIES DIRECTOR at 1537, Until Sun11/14/17 at 1740, Anesthesia Intra-op Given 11/14/2017 50 mg 15:55 PUBLIC RELATIONS STUDIES DIRECTOR succinylcholine (ANECTINE) injection Given 11/14/2017 100 mg Intravenous, INTRA-PROCEDURE MED, 15:37 PUBLIC RELATIONS STUDIES DIRECTOR Starting Sun11/14/17 at 1537, Until Sun11/14/17 at 1740, Anesthesia Intra-op in this encounter
--- OUTSIDE RECORDS SUMMARY | 2018-01-15 14:46 | XMS REPORT | Encounter Summary ---
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 mass Encounter Details Date Type Department Care Team Description 11/12/2017 Surgery Gastrointenstinal Michael Wade MD ESOPHAGOGASTRODUODENOSCOP Endoscopy [address] ENDOSCOPIC ULTRASOUND [address] [place] [address] [place] [address] [phone] Social History Tobacco Use Types Packs/Day Years Used Date Never Smoker Smokeless Tobacco: Never Used Alcohol Use Drinks/Week oz/Week Comments No Sex Assigned at Date Recorded Not on file as of this encounter Last Filed Vital Signs Vital Sign Reading Time Taken Blood Pressure 142/75 11/17/2017 9:00 AM GOVERNMENT GAUGER Pulse 99 11/16/2017 8:00 PM GOVERNMENT GAUGER Temperature 36.8 C (98.2 F) 11/17/2017 9:00 AM GOVERNMENT GAUGER Respiratory Rate - - Oxygen Saturation 93% 11/17/2017 4:00 PM GOVERNMENT GAUGER Inhaled Oxygen - - Concentration Weight 90.4 kg (199 lb 4.7 oz) 11/14/2017 5:33 PM GOVERNMENT GAUGER Height 154.9 cm (5' 1") 11/09/2017 12:13 AM GOVERNMENT GAUGER Body Mass Index 37.66 11/14/2017 5:33 PM GOVERNMENT GAUGER in this encounter Functional Status Functional Status Response Date of Assessment Does the patient have a hearing impairment: No 11/09/2017 as of this encounter Discharge Summaries * Amadou Encarnacion MD - 11/17/2017 2:07 PM GOVERNMENT GAUGER Formatting of this note may be different [...] chest with pleural effusion. She transferred to [facility] for CTS consultation. She underwent [...] or concerns regarding your hospital stay. Call [phone] Discharging attending physician: ANGELA MONSON [[id number]] Regular Diet You have no dietary restriction. Please continue with a healthy balanced diet. Return Appointment - Appointment with Dr. Quintero scheduled for Sunday11/21/17 at 8:00am [facility] Address: [facility] [place] [address] Current Discharge Medication List START taking these [...] partner) scheduled for Sunday at 8:00[place] [address] Pending items needing follow up: Signed: Amadou Encarnacion MD 11/17/2017 cc: Primary Care Physician: Tad Campbell Referring physicians: Self, Referral Additional provider(s): in this encounter Discharge Instructions * Discharge Instr - Appointments - Amadou Encarnacion MD - 11/17/2017 11:55 AM GOVERNMENT GAUGER - Appointment with Dr. Quintero (Dr. Middleton's partner) scheduled for 11/21 at 8:00[place] [address] in this encounter Medications at Time of [...] Dayanara Harris RN - 11/17/2017 2:40 PM GOVERNMENT GAUGER 0700: Report received and care assumed. Bedside [...] Transport at bedside to take pt to [facility] via wheelchair with all belongings. 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 Workup: - Biopsy 10/26/17 in [place] - [facility] [...] >60 >60 mL/min Glucose: (!) 109 (11/17/17 8136) Radiology and other Diagnostics Review: Pertinent radiology reviewed. Amadou Encarnacion MD PGY1 Emergency Medicine Pager [phone] Associated attestation - Angela Monson MD - [...] Debora Hernandez APRN - 11/16/2017 9:09 AM GOVERNMENT GAUGER Med-Onc Quick Note: - Appointment with Dr. Quintero (Dr. Middleton's partner) scheduled for 11/21 at 8:00am - Awaiting pathology results from biopsy obtained on 11/15 for definitive treatment planning [facility] Address: [address] [place] [id number] Jim Hernandez, MARIXA [phone] * Tani Munson MD - 11/16/2017 5:55 AM GOVERNMENT GAUGER Formatting of this note may be different [...] Suspect sarcoma. Workup: - Biopsy 10/26/17 in [place], [place] - path review of [facility] [...] Dr. Jeimy Encarnacion MD PGY1 Emergency Medicine 8161 ATTESTATION I personally performed the zapata portions [...] Amadou Encarnacion MD PGY1 Emergency Medicine Pager [phone] * Maegan Orr, RT - 11/15/2017 6:11 PM GOVERNMENT GAUGER Formatting of this note may be different [...] Date: 11/15/2017 Zapata AC=Airway clearance AM=Aerosolized medication BA=[place] aerosol DB&C=Deep breathe & cough FEV1=Forced expiratory volume in first second) IC=Inspiratory capacity LE=Lung expansion MDI=Metered dose inhaler Neb=Nebulizer O2=Oxygen Oxim=Oximetry PEFR=Peak expiratory flow rate STITCH BONDING MACHINE TENDER HELPER=Rapid Response Team * Leonarda Watkins, RN - 11/15/2017 6:00 PM GOVERNMENT GAUGER 1800 Assumed care of pt from Cat Brendon RN. Assessment complete, vss. * Richa Olivas RN - 11/15/2017 5:40 PM GOVERNMENT GAUGER 0730 - assumed care of patient, bedside safety check completed 0800 - assessment completed and documented per ICU flow sheet. Patient alert & oriented x4, follows commands, denies pain at this time. All VSS per patient trends, remains on 6L HFNC, will titrate as tolerated. Will continue to monitor. * Emilee Camargo MD - 11/15/2017 11:44 AM GOVERNMENT GAUGER CTS Progress Note Case reviewed in multidisciplinary [...] diagnosis. 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 Patient already established with Dr. Middleton [...] Diagnostics Review: Pertinent radiology reviewed. Debora Hernandez, LEAD GAME DESIGNER [phone] * Tani Munson MD - 11/15/2017 6:51 AM GOVERNMENT GAUGER Formatting of this note may be different [...] sarcoma. Workup: - S/p biopsy 10/26/17 in [place], [place] with path review of [facility] [...] Dr. Jeimy Encarnacion MD PGY1 Emergency Medicine 9269 ATTESTATION I personally performed the zapata portions [...] Amadou Encarnacion MD PGY1 Emergency Medicine Pager [phone] * Angela Del Castillo RN - 11/14/2017 7:49 PM GOVERNMENT GAUGER 1930: Assumed care of patient. Bedside safety [...] Richa Olivas RN - 11/14/2017 6:36 PM GOVERNMENT GAUGER 1730 - patient arrived to 63 from GI/Endo. Bedside safety check completed. Assessment completed and documented per ICU flow sheet. Patient alert & oriented x4, follows commands, denies pain at this time. Placed on HFNC, will titrate as tolerated. All other VSS per patient trends, will continue to monitor. * Elizabeth Navarrete RN - 11/14/2017 5:42 PM GOVERNMENT GAUGER Patient arrived to room # (6314) via [...] Harley Niño MD - 11/14/2017 11:10 AM GOVERNMENT GAUGER Formatting of this note may be different [...] atypical spindle cell neoplasm. She presented to [facility] in [place], [place] with dyspnea and dry cough, found to have increased right-sided pleural effusion and atelectasis, transferred to [facility]. S/p thoracentesis 11/09 with improvement in dyspnea. Planning on obtaining more tissue for diagnosis based on recommendation of oncology. 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 Workup: - S/p biopsy 10/26/17 in [place] with path review of [facility] [...] Harley Niño MD - 11/13/2017 4:22 PM GOVERNMENT GAUGER Formatting of this note may be different [...] atypical spindle cell neoplasm. She presented to [facility] in [place], [place] with dyspnea and dry cough, found to have increased right-sided pleural effusion and atelectasis, transferred to [facility]. S/p thoracentesis 11/09 with improvement in dyspnea. Planning on obtaining more tissue for diagnosis based on recommendation of oncology. 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 Workup: - S/p biopsy 10/26/17 in [place], [place] with path review of [facility] [...] Opal Arellano MD - 11/12/2017 10:09 PM GOVERNMENT GAUGER EUS on 11/12/2017 with the axial mass [...] Harley Niño MD - 11/12/2017 8:41 PM GOVERNMENT GAUGER Formatting of this note may be different [...] atypical spindle cell neoplasm. She presented to [facility] in [place], [place] with dyspnea and dry cough, found to have increased right-sided pleural effusion and atelectasis, transferred to [facility]. S/p thoracentesis 11/09 with improvement in dyspnea. Planning on obtaining more tissue for diagnosis, with EGD/EUS planned for tomorrow, 11/12. 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 Workup: - S/p biopsy 10/26/17 in [place] with path review of [facility] [...] Christiano Lassiter, AC - 11/12/2017 3:05 PM GOVERNMENT GAUGER 1705 - Pt. left 6411 to GI lab. * Debora Hernandez APRN - 11/12/2017 2:39 PM GOVERNMENT GAUGER Formatting of this note may be different [...] spindle cell neoplasm [pending outside consultation with [facility] block- report indicates suspicion for [...] Diagnostics Review: Pertinent radiology reviewed. Debora Hernandez, LEAD GAME DESIGNER [phone] * Dianne Cazares, RT - 11/12/2017 10:20 AM GOVERNMENT GAUGER Formatting of this note may be different [...] Date: 11/12/2017 Zapata AC=Airway clearance AM=Aerosolized medication BA=[place] aerosol DB&C=Deep breathe & cough FEV1=Forced expiratory volume in first second) IC=Inspiratory capacity LE=Lung expansion MDI=Metered dose inhaler Neb=Nebulizer O2=Oxygen Oxim=Oximetry PEFR=Peak expiratory flow rate STITCH BONDING MACHINE TENDER HELPER=Rapid Response Team * Kane Castellano MD - 11/11/2017 1:10 PM GOVERNMENT GAUGER Formatting of this note may be different [...] atypical spindle cell neoplasm. She presented to [facility] in [place], [place] with dyspnea and dry cough, found to have increased right-sided pleural effusion and atelectasis, transferred to [facility]. S/p thoracentesis 11/09 with improvement in dyspnea. Planning on obtaining more tissue for diagnosis, with EGD/EUS planned for tomorrow, 11/12. 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 Workup: - S/p biopsy 10/26/17 in [place] with path review of [facility] [...] Full code Hero Castellano MD Hospitalist Pager [phone] Heather Garner Pierre is a 72 y.o. [...] * Loretta Chaudhry - 11/10/2017 8:36 PM GOVERNMENT GAUGER Med pvt paged regarding pt increased concern about rash under right breast and on chest. Rash is warm to touch and sensitive. Pt c/o constant burning sensation. Orders placed for nystatin topical cream. This RN routinely monitoring. * Montez Roger RN - 11/10/2017 7:21 PM GOVERNMENT GAUGER Patient called this RN into room to assess newly discovered rash under right breast. Rash is slightly warmer than surrounding skin upon assessment. Patient states rash is a slight burning sensation but not itching. Med Private paged. Order to continue to monitor. * Kane Castellano MD - 11/10/2017 12:37 PM GOVERNMENT GAUGER Formatting of this note may be different [...] atypical spindle cell neoplasm. Who presented to [facility] in [place], [place] with dyspnea and dry cough,found to have increased right-sided pleural effusion and atelectasis. S/p thoracentesis 11/09 with improvement in dyspnea. Planning on CTS consult, obtaining more tissue for diagnosis/ EGD/EUS on Sunday. 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 Workup: - S/p biopsy 10/26/17 in [place] with path review of [facility] [...] Full code Hero Castellano MD Hospitalist Pager [phone] Heather Garner Pierre is a 72 y.o. [...] Federica Goff, PT - 11/09/2017 2:40 PM GOVERNMENT GAUGER PHYSICAL THERAPY NOTE Per discussion with RN [...] * Miri Thao - 11/09/2017 1:39 PM GOVERNMENT GAUGER OCCUPATIONAL THERAPY NO TREATMENT NOTE Patient denies [...] * Marisa Bush - 11/09/2017 11:24 AM GOVERNMENT GAUGER Pt left IR in bed with Fluoresent[employer] personal. * Yasemin Barlow RN - 11/09/2017 11:07 AM GOVERNMENT GAUGER Report called to AC Graves No questions and concerns. Immediate chest xray read by Dr. Hyatt. Pt. Cleared to go back to home unit. * Reid Castillo RN - 11/09/2017 9:42 AM GOVERNMENT GAUGER Vital signs q 15 minutes x 4 [...] Faviola Serrato RN - 11/09/2017 3:44 AM GOVERNMENT GAUGER Paged regarding a 2.15 second pause. Patient is asymptomatic at this time. Dr. Owen returned page will order an EKG. * Faviola Serrato RN - 11/09/2017 12:59 AM GOVERNMENT GAUGER Patient arrived to room # (8148) via cart accompanied by EMS. Patient transferred [...] Jayson Lange MD - 11/14/2017 5:40 PM GOVERNMENT GAUGER Formatting of this note may be different [...] atypical spindle cell neoplasm. She presented to [facility] in [place], [place] with dyspnea and dry cough, found to have increased right-sided pleural effusion and atelectasis, transferred to [facility]. S/p thoracentesis 11/09 with improvement in dyspnea. Planning on obtaining more tissue for diagnosis, with EGD/EUS planned for 11/12. 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 Workup: - S/p biopsy 10/26/17 in [place], [place] with path review of [facility] [...] Dr. Erik Encarnacion MD PGY1 Emergency Medicine 1847 ICU Attending Note Jonathon Jay Is critically [...] Amadou Encarnacion MD PGY1 Emergency Medicine Pager [phone] * Kaushik Gutierrez MD - 11/14/2017 3:34 PM GOVERNMENT GAUGER Formatting of this note may be different [...] Relevant labs reviewed Kaushik Gutierrez MD Pager [phone] * Pantera Ortiz, MARIXA-MEDICAL APPOINTMENT CLERK - 11/09/2017 9:48 AM GOVERNMENT GAUGER Formatting of this note may be different [...] Tests: Labs: Pertinent labs reviewed Pantera Ortiz APRN-MEDICAL APPOINTMENT CLERK Pager [phone] * Kenya Ramey MD - 11/09/2017 2:23 AM GOVERNMENT GAUGER Formatting of this note may be different [...] [ pending outside consultation with [facility]]. Patient presented to [facility] in [place], [place] for shortness of breath and dry [...] [ pending outside consultation with [facility]]. Patient presented to [facility] in [place], [place] for shortness of breath and dry cough. Dyspnea has been ongoing for the last month or so but got worse after the biopsy on 10/26. Patient denies having phlegm, hemoptysis, or chest pain. She was found to have increased right-sided pleural effusion on CT chest without contrast. Her saturation was 88% on room air. She was transferred to [facility] for CTS consultation. Patient states that she has extensive family history of cancer: her father had colon, lung and liver cancer, and her mother had leukemia. She never smoked cigarettes. 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 She lives by herself, and is able to take care of herself. Her kids live near her, in the area of [place]. Past Medical History: Diagnosis Date HTN (hypertension) [...] reviewed. Susana Woo MD Internal Medicine Pager [phone] in this encounter Consult Notes * Charline Alves DO - 11/13/2017 11:08 AM GOVERNMENT GAUGER Associated Order(s): CONSULT PULMONARY/CRITICAL CARE PHYSICIAN Formatting [...] who presented with dyspnea and cough to [facility] in [place], [place]. She was found to have a [...] breath so presented to the ED in [place], [place] and then was transferred here. She [...] mass. Elizabeth Alves, Pulmonary/Critical Care Pager # [phone] 11/13/2017 Associated attestation - Akash Winn MD - 11/13/2017 10:54 PM GOVERNMENT GAUGER Formatting of this note may be different [...] Emilee Camargo MD - 11/10/2017 4:00 PM GOVERNMENT GAUGER Associated Order(s): CONSULT CARDIOTHORACIC SURGERY PHYSICIAN Formatting of this note may be different from the original. CTS CONSULT Date of Service: 11/10/2017 Requesting Physician: Kenya Ramey MD Consulting Physician: Leyla Lopez MD Consult Performed By: Emilee Camargo MD HPI: Mrs. Jay is a 72 y/o F who presented to [facility] in [place], [place], for shortness of breath and a nonproductive cough. 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 She was transferred to [facility] for further workup. She is [...] Leyla Lopez MD - 11/11/2017 8:53 AM GOVERNMENT GAUGER Formatting of this note may be different from the original. ATTESTATION I personally performed the zapata portions of the E/M visit, discussed case with resident and concur with resident documentation of history, physical exam, assessment, and treatment plan unless otherwise noted. Staff name: Leyla Lopez MD Date: 11/11/2017 * Bette Kurtz MD - 11/09/2017 10:37 AM GOVERNMENT GAUGER Associated Order(s): CONSULT GASTROENTEROLOGY PHYSICIAN Formatting of [...] (pending final pathology work-up), was transferred from [facility] in [place], [place] to [facility] for worsening shortness of breath [...] (pending final pathology work-up), was transferred from [facility] in [place], [place] to [facility] for worsening shortness of breath [...] Arellano MD Gastroenterology & Hepatology Fellow Pager [phone] * Debora Hernandez, MARIXA - 11/09/2017 7:33 AM GOVERNMENT GAUGER Associated Order(s): CONSULT ONCOLOGY PHYSICIAN Formatting of [...] spindle cell neoplasm [pending outside consultation with [facility] block- report indicates suspicion for [...] 72 y.o. female admitted in transfer from [place], [place] for CTS evaluation. Patient has newly [...] FINAL 11/09/2017 Pertinent radiology reviewed. Debora Hernandez, CCTV TECHNICIAN [phone] Associated attestation - Alvin Fink MD - 11/09/2017 5:29 PM GOVERNMENT GAUGER Attestation by Dr. Fink: I saw this [...] - Jeny Carson - 11/16/2017 9:48 AM GOVERNMENT GAUGER Case Management Progress Note NAME:Jonathon Jay : [...] ? Medication Needs ? Financial Medicare and [facility] ? Legal Legal: DPOA & Advance Directives [...] No ? Discharge Disposition Jeny Carson LMSW [phone] (phone) [phone] (pager) * Case Mgmt DC Plan - Lisa Jurado RN - 11/16/2017 9:11 AM GOVERNMENT GAUGER Formatting of this note may be different from the original. Case Management Progress Note NAME:Jonathon Jay : AGE: 72 y.o. ADMISSION DATE: 11/09/2017 DAYS ADMITTED: LOS: 7 days Todays Date: 11/16/2017 Plan Discharge planning Interventions ? Support Support: Pt/Family Updates re:POC or DC Plan ? Info or Referral Patient has her CPAP through [facility] in [place]. [phone] Fax No oxygen ASSISTANT OPERATOR. ? Discharge Planning Spoke with patient [...] Disposition Latrell Jurado RN MSN ONC Nurse Counter Supply Worker Pg [phone] Durable Medical Equipment No service has been selected for the patient. [facility] Destination No service has been selected for the patient. Home Care No service has been selected for the patient. Dialysis/Infusion No service has been selected for the patient. * Anesthesia Post Op Day 1 - Amadou Beard DO - 11/15/2017 7:38 AM GOVERNMENT GAUGER Formatting of this note may be different [...] - Shyanne Gonzalez - 11/14/2017 1:16 PM GOVERNMENT GAUGER Formatting of this note may be different [...] been selected for the patient. Shyanne Gonzalez, [facility] *[id number] * Anesthesia Post Op Day 1 - Amadou Beard DO - 11/13/2017 7:50 AM GOVERNMENT GAUGER Formatting of this note may be different [...] Ely Mclaughlin RN - 11/11/2017 5:15 PM GOVERNMENT GAUGER Problem: Discharge Planning Goal: Participation in plan of care Outcome: Goal Ongoing Pt updated on plan of care. No plans to d/c at this time. Problem: Respiratory Impairment (Non-Ventilated Patient) Goal: Effective gas exchange Outcome: Goal Ongoing Pt on 2L NC. * Case Mgmt DC Plan - Shyanne Gonzalez - 11/09/2017 3:27 PM GOVERNMENT GAUGER Case Management Admission Assessment NAME:Jonathon Jay : [...] neoplasm [pending outside consultation with [facility]]. Patient presented to [facility] in [place], [place] for shortness of breath and dry cough, she was found to have increased right-sided pleural effusion and atelectasis on CT chest without contrast." Patient Address/Phone [address] [facility] [address] (home) Emergency Contact Extended Emergency Contact Information Primary Emergency Contact: Becky Griffiths Address: [address] [place] Relation: Daughter Preferred language: [place] Healthcare Directive Pt does not have a [...] Insurance: Medicare Secondary Insurance: Commercial insurance ([facility]) Additional Coverage: RX ([employer] and [employer]. Pt manages her own medications and is able to afford her Rx) ? Source of Income Source Of Income: Other fci income ? Financial Assistance Needed? none Psychosocial Needs ? Mental Health Mental Health History: No ? Substance Use History Substance Use History Screen: No ? Other none Current/Previous Services ? PCP Tad Campbell, , ? Pharmacy [facility] [address] [place] [phone] ? Durable Medical Equipment Durable Medical Equipment [...] ? Outpatient Therapy PT: No OT: No LOGGING TRACTOR OPERATOR: No ? Nursing Home Facility/Long Term SNF: No NH: No ? Inpatient Rehab IPR: No ? Long-Term Acute Care Hospital LTACH: No ? Acute Hospital Stay Acute Hospital Stay: In the past Shyanne Gonzalez [facility] *[id number] * Procedures (Immed Post or Bedside) - Amadou Zeng MD - 11/09/2017 10:38 AM GOVERNMENT GAUGER Procedure Note Procedures Immediate Post Procedure Note Date: 11/09/2017 Attending Physician: Matthew Beajrano MD Performing Provider: Amadou Zeng MD Consent: [...] Faviola Serrato RN - 11/09/2017 5:22 AM GOVERNMENT GAUGER Problem: Discharge Planning Goal: Participation in plan [...] IV THERAPY TEAM STAT 11/14/2017 12:18 PM GOVERNMENT GAUGER ESOPHAGOGASTRODUODENOSCOP 11/12/2017 Mediastinal mass Y ENDOSCOPIC ULTRASOUND 5:57 PM GOVERNMENT GAUGER CONSULT IV THERAPY TEAM Routine 11/12/2017 9:26 AM GOVERNMENT GAUGER CONSULT IV THERAPY TEAM STAT 11/09/2017 5:01 AM GOVERNMENT GAUGER in this encounter Results * PROCEDURE RECORD-SCAN [...] questions. Specimen Performing Laboratory Blood MAIN LAB [address] [place] [address] * PHOSPHORUS (11/17/2017 3:35 AM) Component Value Ref Range Phosphorus 3.9 2.0 - 4.0 MG/DL Specimen Performing Laboratory Blood MAIN LAB [address] [place], [place] [id number] * MAGNESIUM (11/17/2017 3:35 AM) Component Value Ref Range Magnesium 2.0 1.6 - 2.6 mg/dL Specimen Performing Laboratory Blood MAIN LAB [address] [place] [id number] * CBC AND DIFF (11/17/2017 3:35 AM) [...] Specimen Performing Laboratory Blood MAIN LAB [address] [place] [address] * COMPREHENSIVE METABOLIC PANEL (11/16/2017 5:34 AM) [...] Specimen Performing Laboratory Blood MAIN LAB [address] [place] [address] * PHOSPHORUS (11/16/2017 5:34 AM) Component Value Ref Range Phosphorus 3.8 2.0 - 4.0 MG/DL Specimen Performing Laboratory Blood MAIN LAB [address] [place] [address] * MAGNESIUM (11/16/2017 5:34 AM) Component Value Ref Range Magnesium 2.1 1.6 - 2.6 mg/dL Specimen Performing Laboratory Blood MAIN LAB [address] [place] [address] * CBC AND DIFF (11/16/2017 5:34 AM) [...] Performing Laboratory Blood [facility] MAIN LAB [address] [place] [address] * COMPREHENSIVE METABOLIC PANEL (11/15/2017 2:35 AM) [...] Specimen Performing Laboratory Blood MAIN LAB [address] [place] [address] * PHOSPHORUS (11/15/2017 2:35 AM) Component Value Ref Range Phosphorus 5.0 (H) 2.0 - 4.0 MG/DL Specimen Performing Laboratory Blood MAIN LAB [address] [place] [address] * MAGNESIUM (11/15/2017 2:35 AM) Component Value Ref Range Magnesium 2.2 1.6 - 2.6 mg/dL Specimen Performing Laboratory [facility] [address] [place] [address] * CBC AND DIFF (11/15/2017 2:35 AM) [...] Specimen Performing Laboratory [facility] [address] [place] [address] * CBC AND DIFF (11/14/2017 6:12 PM) [...] Specimen Performing Laboratory [facility] [address] [place] [address] * COMPREHENSIVE METABOLIC PANEL (11/14/2017 6:12 PM) [...] Specimen Performing Laboratory [facility] [address] [place] [address] * MAGNESIUM (11/14/2017 6:12 PM) Component Value Ref Range Magnesium 2.1 1.6 - 2.6 mg/dL Specimen Performing Laboratory [facility] [address] [place] [address] * PHOSPHORUS (11/14/2017 6:12 PM) Component Value Ref Range Phosphorus 4.5 (H) 2.0 - 4.0 MG/DL Specimen Performing Laboratory [facility] [address] [place] [address] * PTT (APTT) (11/14/2017 6:12 PM) Component Value Ref Range APTT 27.7 21.0 - 39.0 SEC Specimen Performing Laboratory [facility] [address] [place] [address] * PROTIME INR (PT) (11/14/2017 6:12 PM) Component Value Ref Range INR 1.2 0.8 - 1.2 Specimen Performing Laboratory [facility] [address] [place] [address] * BRONCHOSCOPY (11/14/2017 2:52 PM) Component Value Ref Range Provation Report Patient Name: Jonathon Jay Procedure Date: 11/14/2017 2:52 PM CSN: [id number] Date of : 1945 Gender: Female Attending Physician: Kaushik Gutierrez MD Procedure:Bronchoscopy Indications:Mediastinal mass Providers:Kaushik Gutierrez MD (Doctor), Ting Stafford, RN (Nurse), Gloria Day, RN (Nurse), Oscar No, Grommet Man (Techn ician) Referring Physician:Leyla Lopez Medications:Tetricaine 0.25%/Epinephrine [...] NEG Specimen Performing Laboratory [facility] [address] [place] [address] * PROTIME INR (PT) (11/14/2017 12:30 PM) Component Value Ref Range INR 1.2 0.8 - 1.2 Specimen Performing Laboratory [facility] [address] [place] [address] * FINE NEEDLE ASPIRATE (FNA) (11/14/2017 9:04 AM) Component Value Ref Range Cytology [email or web address] Department of Pathology and Laboratory Medicine [address] [place] [address] Surgical Pathology Office:[phone]:[phone] CYTOLOGY REPORT NAME: JONATHON JAY SURG PATH #: [id number] MR #: [id number] ALT ID #: BILLING #: [id number] LOCATION: DATE OF PROCEDURE: 11/14/2017 AGE:72 SEX: F DATE RECEIVED: 11/15/2017 : 1945TIME RECEIVED:09:04 PHYSICIAN: KAUSHIK GUTIERREZ [facility] DATE OF REPORT: 11/16/2017 COPY TO: KENYA RAMEY MD BRICE J ZOGLEMAN, MD CROSSER, MICHAEL [facility] DATE OF PRINTIN11/16/2017 Material Received: A: FNA Lung-Right Mainstem History: 72 year old female, history of large mediastinal mass. Gross Description: ( 4 DQ direct smear, 4 Pap direct smear, 1 cell block) Rapid determination of adequacy was performed by the policy writer sales, TANNER, on Diff-Quik stained slide(s). Pass one, two and three not adequate for evaluation.Pass four adequate for evaluation.Pass five, six, and seven into RPMI. ################################################## ###################### Final Diagnosis: A. 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 See comment. Please also see concurrent cytology report ([id number]). Comment: Extensive crush artifact is present. Immunohistochemical stains for figueredo-cytokeratin, CAM5.2, CD34, desmin, TTF-1, PAX-8, SOX-10, calretinin, and Ki-67 performed on the cell block are non-contributory due to a lack of lesional tissue. A biopsy/more extensive sampling is recommended for a definitive diagnosis. Pursuant to the Facilities Project Manager Program at the [facility] Pathology Department, selected slides from this [...] Performing Laboratory [facility] [address] [place] [address] * CBC AND DIFF (11/14/2017 5:34 AM) [...] Specimen Performing Laboratory [facility] [address] [place] [address] * CHEST 2 VIEWS (11/13/2017 7:00 AM) [...] Interface, Radiant Results - 11/13/2017 12:02 PM GOVERNMENT GAUGER Procedure: CHEST 2 VIEWS Clinical Indication: Cough. [...] Specimen Performing Laboratory [facility] [address] [place] [address] * CBC AND DIFF (11/13/2017 6:02 AM) [...] Specimen Performing Laboratory [facility] [address] [place] [address] * ENDOSCOPIC ULTRASOUND REPORT (11/12/2017 6:12 PM) Component Value Ref Range Provation Report Patient Name: Pierre Garner Procedure Date: 11/12/2017 6:12 PM CSN: [id number] Date of : 1945 Gender: Female Attending Physician: Michael Wade MD Procedure: Upper EUS Indications:Gorman spected mass in mediastinum on chest CT Providers: Michael Wade MD (Doctor), Truong Burrell MD (Fellow), Miri Hairston (Nurse), Randi Levin, Grommet Man (Grommet Man) Referring Physician:Referral Self Medications:Mo nitored Anesthesia Care [...] minutes 23 seconds Procedure Code(s):--- Professional --- 74316, Esophagogastroduodenoscopy, flexible, transoral; with endoscopic ultrasound examination, including the esophagus, stomach, and either the duodenum or a surgically altered stomach where the jejunum is examined distal to the anastomosis Diagnosis Code(s):--- Professional --- J98.59, Other diseases of mediastinum, not elsewhere classified R93.8, Abnormal findings on diagnostic imaging of other specified body structures CPT copyright 2016 [employer]. All rights reserved. The codes documented in this report are preliminary and upon cooker operator review may be revised to meet [...] Specimen Performing Laboratory [facility] [address] [place] [address] * CBC AND DIFF (11/12/2017 5:14 AM) [...] Specimen Performing Laboratory [facility] [address] [place] [address] * COMPREHENSIVE METABOLIC PANEL (11/11/2017 5:33 AM) [...] Performing Laboratory [facility] [address] [place] [address] * CBC AND DIFF (11/11/2017 5:33 AM) [...] Specimen Performing Laboratory [facility] [address] [place] [address] * COMPREHENSIVE METABOLIC PANEL (11/10/2017 4:36 AM) [...] Specimen Performing Laboratory [facility] [address] [place] [address] * CBC AND DIFF (11/10/2017 4:36 AM) [...] Performing Laboratory [facility] [address] [place] [address] * NON-PATIENT ADMITTING CLERK CYTOLOGY (BODY FLUIDS/TISSUE) (11/09/2017 2:22 PM) Component Value Ref Range Cytology [email or web address] Department of Pathology and Laboratory Medicine [address] [place] [address] Surgical Pathology Office:[phone]:[phone] CYTOLOGY REPORT NAME: JONATHON JAY CYTOLOGY #: [id number] MR #: [id number] ALT ID #: BILLING #: [id number] LOCATION: DATE OF PROCEDURE: 11/09/2017 AGE:72 SEX: [...] Interface, Radiant Results - 11/09/2017 5:41 PM GOVERNMENT GAUGER PET/CT NECK, CHEST, ABDOMEN AND PELVIS CLINICAL [...] M.D. on 11/09/2017 5:38 PM. Dictated by aTni Hernandez M.D. on 11/09/2017 1:47 PM. * [...] effusion MEDICATIONS: 5 mL subcutaneous 2% lidocaine LIBRARY INFORMATION TECHNICIAN: Matthew Bejarano M.D., Amadou Zeng M.D. [...] Interface, Radiant Results - 11/12/2017 10:39 AM GOVERNMENT GAUGER Ultrasound-guided Thoracentesis CLINICAL INDICATION: Symptomatic pleural effusion MEDICATIONS: 5 mL subcutaneous 2% lidocaine LIBRARY INFORMATION TECHNICIAN: Matthew Bejarano M.D., Amadou Zeng M.D. [...] Interface, Radiant Results - 11/09/2017 12:28 PM GOVERNMENT GAUGER Chest, single view with inspiration and expiration [...] Interface, Radiant Results - 11/09/2017 5:47 PM GOVERNMENT GAUGER CHEST IMMEDIATE POST PROCEDURE INSP/EXP Clinical Indication: [...] Specimen Performing Laboratory Thoracentesis Fluid MAIN LAB [address] [place] [address] * PLEURAL FLUID TOTAL PROTEIN (11/09/2017 10:36 AM) Component Value Ref Range Pleural Fluid Total 3.6 (H)Comment: Serum to pleural fluid protein <1.1 g/ dL Protein gradient >3.1 g/dL is suggestive of an exudate Specimen Performing Laboratory Pleural fluid - [facility] Thoracentesis Fluid [address] [place] [address] * PLEURAL FLUID PH (11/09/2017 10:36 AM) Component Value Ref Range Pleural Fluid Ph 7.45 (L) 7.60 - 7.66 Specimen Performing Laboratory Pleural fluid - [facility] Thoracentesis Fluid [address] [place] [address] * PLEURAL FLUID LACTATE DEHYDROGENASE (11/09/2017 10:36 AM) Component Value Ref Range Pleural Fluid Lactate 398 (H)Comment: Higher levels suggestive of 67 - 140 U/L Dehydrogenase exudate Specimen Performing Laboratory Pleural fluid - [facility] Thoracentesis Fluid [address] [place] [address] * PLEURAL FLUID GLUCOSE (11/09/2017 10:36 AM) Component Value Ref Range Pleural Fluid Glucose 102 (H) 70 - 100 mg/dL Comment: Glucose <60 mg/dL associated withparapneumonic effusion, tuberculosis, malignancy, empyema, and rheumatoid disease Specimen Performing Laboratory Pleural fluid - MAIN LAB Thoracentesis Fluid [address] [place] [address] * PLEURAL FLUID ALBUMIN (11/09/2017 10:36 AM) Component Value Ref Range Pleural Fluid Albumin 2.4Comment: Pleural fluid albumin gradient >1.2 g/ dL g/dL is suggestive of an exudate Specimen Performing Laboratory Pleural fluid - [facility] Thoracentesis Fluid [address] [place] [address] * CULTURE-WOUND/TISSUE/FLUID(AEROBIC ONLY)W/SENSITIVITY (11/09/2017 10:36 AM) Component Value Ref Range Battery Name ROUTINE CULTURE Specimen Description THORACENTESIS FLUID Special Requests NONE Direct Gram Stain FEW NEUTROPHILS NO ORGANISMS SEEN Culture NO GROWTH 5 DAYS Report Status FINAL 11/14/2017 Specimen Performing Laboratory Pleural fluid - [facility] Thoracentesis Fluid [address] [place] [address] * CULTURE-ANAEROBIC (11/09/2017 10:36 AM) Component Value Ref Range Battery Name ANAEROBE CULTURE Specimen Description THORACENTESIS FLUID Special Requests NONE Culture NO ANAEROBES ISOLATED Report Status FINAL 11/14/2017 Specimen Performing Laboratory Pleural fluid - [facility] Thoracentesis Fluid [address] [place] [address] * CELL COUNT W/DIFF-FLUIDS (11/09/2017 10:36 AM) [...] report. Specimen Performing Laboratory Pleural fluid - [facility] Thoracentesis Fluid [address] [place] [address] * LEGIONELLA ANTIGEN URINE,RAN (11/09/2017 7:22 AM) Component Value Ref Range Battery Name LEGIONELLA URINE ANTIGEN Specimen Description URINE Special Requests NONE Antigen NEGATIVE Report Status FINAL 11/09/2017 Specimen Performing Laboratory Urine [facility] [address] [place] [address] * STREPTOCOCCUS PNEUMO AG, URINE (11/09/2017 7:22 AM) Component Value Ref Range Battery Name STREP PNEUMO AG, UR Specimen Description URINE Special Requests NONE Antigen NEGATIVE Report Status FINAL 11/09/2017 Specimen Performing Laboratory Urine MAIN LAB [address] [place], [place] [id number] * RVP VIRAL PANEL PCR (11/09/2017 3:05 [...] Specimen Performing Laboratory Nasopharyngeal Swab MAIN LAB [address] [place], [place] [address] * BNP (B-TYPE NATRIURETIC PEPTI) (11/09/2017 2:55 AM) Component Value Ref Range B Type Natriuretic 28.0 0 - 100 PG/ML Peptide Specimen Performing Laboratory Blood MAIN LAB [address] [place], [place] [address] * CULTURE-BLOOD W/SENSITIVITY (11/09/2017 2:55 AM) Component Value Ref Range Battery Name BLOOD CULTURE Specimen Description BLOOD RIGHT FA Special Requests NONE Culture NO GROWTH 5 DAYS Report Status FINAL 11/15/2017 Specimen Performing Laboratory Blood MAIN LAB [address] [place] [address] * CULTURE-BLOOD W/SENSITIVITY (11/09/2017 2:55 AM) Component Value Ref Range Battery Name BLOOD CULTURE Specimen Description BLOOD LEFT ANTECUBITAL Special Requests NONE Culture NO GROWTH 5 DAYS Report Status FINAL 11/15/2017 Specimen Performing Laboratory Blood MAIN LAB [address] [place] [address] * TSH WITH FREE T4 REFLEX (11/09/2017 2:55 AM) Component Value Ref Range TSH 1.008 0.35 - 5.00 MCU/ML Specimen Performing Laboratory Blood MAIN LAB [address] [place], [place] [address] * TROPONIN-I (11/09/2017 2:55 AM) Component Value Ref Range Troponin-I 0.01 0.0 - 0.05 NG/ML Specimen Performing Laboratory Blood MAIN LAB [address] [place] [address] * COMPREHENSIVE METABOLIC PANEL (11/09/2017 2:55 AM) [...] Specimen Performing Laboratory Blood MAIN [facility] [address] [place] [address] * PROTIME INR (PT) (11/09/2017 2:55 AM) Component Value Ref Range INR 1.1 0.8 - 1.2 Specimen Performing Laboratory Blood MAIN LAB [address] [place] [address] * CBC AND DIFF (11/09/2017 2:55 AM) [...] Performing Laboratory [facility] [address] [place] [address] * GENERAL RAD CHEST EXTERNAL IMAGING (11/08/2017 [...] mg, Oral, EVERY 6 HOURS PRN, 06:23 GOVERNMENT GAUGER Starting Sun11/09/17 at 0218, Until 11/17/17 at 1909, Pain non-opioid: may be used alone or in combination with opioid analgesia, TOTAL ACETAMINOPHEN DOSE NOT TO EXCEED 4GM DAILY Given 11/13/2017 650 mg 12:33 GOVERNMENT GAUGER Given 11/13/2017 650 mg 20:01 GOVERNMENT GAUGER enalapril (VASOTEC) tablet 10 mg Given 11/16/2017 10 mg 10 mg, Oral, DAILY, First dose on Sun 08:01 GOVERNMENT GAUGER 11/16/17 at 0900, Until Discontinued Given 11/17/2017 10 mg 08:55 GOVERNMENT GAUGER hydroCHLOROthiazide (HYDRODIURIL) tablet Given 11/16/2017 12.5 mg 12.5 mg 08:01 GOVERNMENT GAUGER 12.5 mg, Oral, DAILY, First dose on Sun11/16/17 at 0900, Until Discontinued Given 11/17/2017 12.5 mg 08:55 GOVERNMENT GAUGER levothyroxine (SYNTHROID) tablet 137 mcg Given 11/15/2017 137 mcg 137 mcg, Oral, DAILY 30MIN BEFORE 08:18 GOVERNMENT GAUGER BREAKFAST, First dose on Sun11/09/17 at 0630, Until Discontinued, Give 1 hour before a meal. If patient is receiving tube feedings, hold tube feed 1hr before and 1hr after dose. Given 11/16/2017 137 mcg 07:52 GOVERNMENT GAUGER Given 11/17/2017 137 mcg 06:13 GOVERNMENT GAUGER nystatin (MYCOSTATIN) topical cream Given 11/10/2017 Topical, TWICE DAILY PRN, Starting Sat 21:26 GOVERNMENT GAUGER 11/10/17 at 2055, Until 11/17/17 at 1909, Rash, Right Breast Given 11/13/2017 20:02 GOVERNMENT GAUGER Given 11/13/2017 20:04 GOVERNMENT GAUGER triamcinolone acetonide (KENALOG) 0.1 % Given 11/15/2017 topical ointment 20:18 GOVERNMENT GAUGER Topical, TWICE DAILY, First dose on 11/11/17 at 1100, Until Discontinued, Apply to right chest Given 11/16/2017 10:00 GOVERNMENT GAUGER Given 11/17/2017 06:13 GOVERNMENT GAUGER in this encounter
--- OUTSIDE RECORDS SUMMARY | 2018-01-15 14:46 | XMS REPORT | Encounter Summary ---
Author Author [facility] Organization [facility] Address Unknown Phone Unavailable Care Team Providers Care Slot Service Specialist Name Role Phone Tad Campbell MD PCP Encounter Details Date Type Department Care Team Description 11/09/2017 Procedure Pass 63 - TICU [address] [place] [address] Social History Tobacco Use Types Packs/Day Years [...]
--- OUTSIDE RECORDS SUMMARY | 2018-01-15 14:46 | XMS REPORT | Encounter Summary ---
Author Author [facility] Organization [facility] Address Unknown Phone Unavailable Care Team Providers Care Site Planner Name Role Phone PCP Unavailable Encounter Details Date Type Department Care Team Description 11/08/2017 Hospital [facility] Encounter Hospital Radiology [address] [place] [address] Social History Tobacco Use Types [...]
--- OUTSIDE RECORDS SUMMARY | 2018-01-15 14:47 | XMS REPORT | Encounter Summary ---
Author Author [facility] Organization [facility] Address Unknown Phone Unavailable Care Team Providers Care Layboy Operator Name Role Phone PCP Unavailable Encounter Details Date Type Department Care Team Description 11/08/2017 Hospital [facility] Encounter Hospital Radiology [address] [place] [address] Social History Tobacco Use Types [...]
--- OUTSIDE RECORDS SUMMARY | 2018-01-15 14:49 | XMS REPORT | Continuity of Care Document ---
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 [id number] 10/02/2011 06:57:00 Document Registration [id number] 08/15/2011 07:02:00 Document Registration [id number] 09/30/2010 06:42:00 Document Registration [id number] 01/24/2010 09:44:00 Document Registration [id number] 09/29/2009 06:48:00 Document Registration [id number] 10/20/2014 15:02:22 ACT Document Registration
== END 2018-01-07 13:44 | disposition home or self-care (01) ==
LOC: UNDOADMIN 12:50 → 4TH 12:50 → UNDOADMIN 13:00 → 4TH 13:00 → EDSTATUS 14:36 → UNDODISIN 01-07 14:35
PROVIDERS: ADMIT Internal Medicine; ATTEND Internal Medicine
DX: L03.115 Cellulitis of right lower limb (principal); B95.5 Unspecified streptococcus as the cause of diseases classified elsewhere; C49.3 Malignant neoplasm of connective and soft tissue of thorax; I10 Essential (primary) hypertension; M19.91 Primary osteoarthritis, unspecified site; M54.9 Dorsalgia, unspecified; E03.9 Hypothyroidism, unspecified; D72.823 Leukemoid reaction; R68.2 Dry mouth, unspecified; R19.7 Diarrhea, unspecified; L65.8 Other specified nonscarring hair loss; T36.8X5A Adverse effect of other systemic antibiotics, initial encounter; R76.11 Nonspecific reaction to tuberculin skin test without active tuberculosis; Z99.81 Dependence on supplemental oxygen
CPT/HCPCS: 36415; 80053; 80202; 85025; 85027; 99211; G0378

== ENCOUNTER → 2018-01-04 | Outpatient (CLI) | payer MEDICARE, OTHER ==
--- NOTE | 2018-01-04 12:35 | Diagnostic Imaging Report ---
PROCEDURE: US right lower extremity venous. TECHNIQUE: Multiple real-time grayscale images were obtained over the right lower extremity in various projections. Additional duplex Doppler and color Doppler images were also obtained. INDICATION: Redness and pain in the right lower extremity. FINDINGS: There is no evidence of a right lower extremity DVT. Right lower extremity deep venous system demonstrates normal compressibility with normal response to augmentation and Valsalva. No fluid collection or mass is seen. IMPRESSION: No evidence of right lower extremity DVT. Dictated by: Dictated on workstation # [id number]
--- NOTE | 2018-01-04 13:44 | Diagnostic Imaging Report ---
INDICATION: Pleural effusion. Sonographic interrogation of the right posterior thorax was performed. FINDINGS: Small amount of pleural fluid on the right is noted, calculated to be approximately 280 mL. IMPRESSION: Right pleural effusion. Dictated by: Dictated on workstation # [id number]
== END ==
LOC: RAD 10:47
PROVIDERS: ATTEND Internal Medicine Hematology & Oncology
DX: J90 Pleural effusion, not elsewhere classified (principal); R60.0 Localized edema
CPT/HCPCS: 76604

== ENCOUNTER → 2018-01-17 | Outpatient (CLI) | payer MEDICARE, OTHER ==
[~2018-01-17] MED LIST changes: +CA C1TAB75 PO; +CALC-6 PO; +CEFD300C3 PO; +DEXA4TAB PO; +DOCU-143 PO; +DOXY100C2 PO; +FURO20TA4 PO; +LEVO137T2 PO; +LOPE-134 PO; +MULT-166 PO; +ONDA8TAB12 PO; +PROC10TA10 PO; +SULF-222 PO
--- NOTE | 2018-01-17 13:20 | Diagnostic Imaging Report ---
PROCEDURE: US right lower extremity venous. TECHNIQUE: Multiple real-time grayscale images were obtained over the right lower extremity in various projections. Additional duplex Doppler and color Doppler images were also obtained. INDICATION: Right leg swelling. FINDINGS: The veins in the right leg have good color filling compressibility. There is normal spontaneous and augmented flow. IMPRESSION: Negative venous Doppler right leg. Dictated by: Dictated on workstation # [id number]
== END ==
LOC: RAD 11:58
PROVIDERS: ATTEND Internal Medicine
DX: M79.89 Other specified soft tissue disorders (principal)

== ENCOUNTER → 2018-01-17 | Outpatient (CLI) | payer MEDICARE, OTHER ==
--- NOTE | 2018-01-17 12:58 | Diagnostic Imaging Report ---
INDICATION: Shortness breath EXAM: PA and lateral chest FINDINGS: Right IJ Port-A-Cath tip projects over the SVC. There is a large area of consolidation in the right lower lung. The right hemidiaphragm is indistinct. It is unclear whether this is parenchymal consolidation, effusion with and without elevation of the right hemidiaphragm. The left lung is clear. IMPRESSION: Large consolidation in the right lower chest with only minimal aeration of the right upper lobe. This is unchanged compared to a prior exam done on 01/03/2018. Dictated by: Dictated on workstation # [id number]
== END ==
LOC: RAD 12:01
PROVIDERS: ATTEND Internal Medicine Hematology & Oncology
DX: J18.1 Lobar pneumonia, unspecified organism (principal)
CPT/HCPCS: 71046

== ENCOUNTER 2018-02-14 12:21 | Outpatient (RCR) | payer MEDICARE, OTHER ==
[2017-11-21 09:42] LABS: BASOPHILS % (AUTO) 0 % (0-10); EOSINOPHILS % (AUTO) 0 % (0-10); HEMATOCRIT 39 % (35-52); HEMOGLOBIN 12.6 G/DL (11.5-16.0); LYMPHOCYTES # (AUTO) 1.5 X 10^3 (1.0-4.0); LYMPHOCYTES % (AUTO) 17 % (12-44); MEAN CORPUSCULAR HEMOGLOBIN 28 PG (25-34); MEAN CORPUSCULAR HGB CONC 33 G/DL (32-36); MEAN CORPUSCULAR VOLUME 85 FL (80-99); MEAN PLATELET VOLUME 8.6 FL (7.4-10.4); MONOCYTES # (AUTO) 0.7 X 10^3 (0.0-1.0); MONOCYTES % (AUTO) 8 % (0-12); NEUTROPHILS # (AUTO) 6.9 X 10^3 (1.8-7.8); NEUTROPHILS % (AUTO) 75 % (42-75); PLATELET COUNT 469 10^3/uL (130-400); RED BLOOD COUNT 4.59 10^6/uL (4.35-5.85); RED CELL DISTRIBUTION WIDTH 14.6 % (10.0-14.5); WHITE BLOOD COUNT 9.2 10^3/uL (4.3-11.0)
[2017-11-21 10:00] LABS: ALANINE AMINOTRANSFERASE 30 U/L (0-55); ALBUMIN 3.5 GM/DL (3.2-4.5); ALKALINE PHOSPHATASE 50 U/L (40-136); BILIRUBIN,TOTAL 0.8 MG/DL (0.1-1.0); BUN/CREATININE RATIO 22; CALCIUM 9.1 MG/DL (8.5-10.1); CARBON DIOXIDE 27 MMOL/L (21-32); CHLORIDE 101 MMOL/L (98-107); CREATININE SERUM 0.78 MG/DL (0.60-1.30); GFR ESTIMATED > 60; GLUCOSE 117 MG/DL (70-105); POTASSIUM 3.9 MMOL/L (3.6-5.0); SODIUM 138 MMOL/L (135-145); TOTAL PROTEIN 6.4 GM/DL (6.4-8.2)
[2017-11-29 11:58] LABS: BASOPHILS % (AUTO) 0 % (0-10); EOSINOPHILS % (AUTO) 0 % (0-10); HEMATOCRIT 39 % (35-52); HEMOGLOBIN 12.8 G/DL (11.5-16.0); LYMPHOCYTES # (AUTO) 0.7 X 10^3 (1.0-4.0); LYMPHOCYTES % (AUTO) 5 % (12-44); MEAN CORPUSCULAR HEMOGLOBIN 28 PG (25-34); MEAN CORPUSCULAR HGB CONC 33 G/DL (32-36); MEAN CORPUSCULAR VOLUME 84 FL (80-99); MEAN PLATELET VOLUME 8.8 FL (7.4-10.4); MONOCYTES # (AUTO) 0.3 X 10^3 (0.0-1.0); MONOCYTES % (AUTO) 2 % (0-12); NEUTROPHILS # (AUTO) 13.3 X 10^3 (1.8-7.8); NEUTROPHILS % (AUTO) 93 % (42-75); PLATELET COUNT 494 10^3/uL (130-400); RED BLOOD COUNT 4.64 10^6/uL (4.35-5.85); RED CELL DISTRIBUTION WIDTH 14.5 % (10.0-14.5); WHITE BLOOD COUNT 14.3 10^3/uL (4.3-11.0)
[2017-11-29 12:16] LABS: ALANINE AMINOTRANSFERASE 22 U/L (0-55); ALBUMIN 3.4 GM/DL (3.2-4.5); ALKALINE PHOSPHATASE 45 U/L (40-136); BILIRUBIN,TOTAL 0.4 MG/DL (0.1-1.0); BUN/CREATININE RATIO 23; CALCIUM 9.3 MG/DL (8.5-10.1); CARBON DIOXIDE 27 MMOL/L (21-32); CHLORIDE 104 MMOL/L (98-107); CREATININE SERUM 0.83 MG/DL (0.60-1.30); GFR ESTIMATED > 60; GLUCOSE 158 MG/DL (70-105); SODIUM 139 MMOL/L (135-145); TOTAL PROTEIN 6.3 GM/DL (6.4-8.2)
[2017-12-06 13:37] LABS: BASOPHILS % (AUTO) 0 % (0-10); EOSINOPHILS % (AUTO) 0 % (0-10); HEMATOCRIT 37 % (35-52); LYMPHOCYTES # (AUTO) 0.6 X 10^3 (1.0-4.0); LYMPHOCYTES % (AUTO) 6 % (12-44); MEAN CORPUSCULAR HEMOGLOBIN 27 PG (25-34); MEAN CORPUSCULAR HGB CONC 33 G/DL (32-36); MEAN CORPUSCULAR VOLUME 84 FL (80-99); MEAN PLATELET VOLUME 8.9 FL (7.4-10.4); MONOCYTES # (AUTO) 0.2 X 10^3 (0.0-1.0); MONOCYTES % (AUTO) 2 % (0-12); NEUTROPHILS # (AUTO) 9.8 X 10^3 (1.8-7.8); NEUTROPHILS % (AUTO) 93 % (42-75); PLATELET COUNT 230 10^3/uL (130-400); RED BLOOD COUNT 4.39 10^6/uL (4.35-5.85); RED CELL DISTRIBUTION WIDTH 14.1 % (10.0-14.5); WHITE BLOOD COUNT 10.6 10^3/uL (4.3-11.0)
[2017-12-06 14:00] LABS: ALBUMIN 3.5 GM/DL (3.2-4.5); BILIRUBIN,TOTAL 0.5 MG/DL (0.1-1.0); CREATININE SERUM 0.92 MG/DL (0.60-1.30); POTASSIUM 3.9 MMOL/L (3.6-5.0); TOTAL PROTEIN 6.2 GM/DL (6.4-8.2)
[2017-12-13 11:59] LABS: BUN/CREATININE RATIO 14; CALCIUM 8.9 MG/DL (8.5-10.1); CARBON DIOXIDE 27 MMOL/L (21-32); CHLORIDE 100 MMOL/L (98-107); CREATININE SERUM 0.79 MG/DL (0.60-1.30); GFR ESTIMATED > 60; GLUCOSE 108 MG/DL (70-105); POTASSIUM 4.1 MMOL/L (3.6-5.0); SODIUM 137 MMOL/L (135-145)
[2017-12-13 12:01] LABS: HEMATOCRIT 36 % (35-52); HEMOGLOBIN 11.4 G/DL (11.5-16.0); MEAN CORPUSCULAR HEMOGLOBIN 27 PG (25-34); MEAN CORPUSCULAR HGB CONC 32 G/DL (32-36); MEAN CORPUSCULAR VOLUME 85 FL (80-99); MEAN PLATELET VOLUME 10.2 FL (7.4-10.4); PLATELET COUNT 82 10^3/uL (130-400); RED BLOOD COUNT 4.18 10^6/uL (4.35-5.85); RED CELL DISTRIBUTION WIDTH 15.7 % (10.0-14.5); WHITE BLOOD COUNT 22.4 10^3/uL (4.3-11.0)
[2017-12-13 12:34] LABS: SMEAR SCAN COMMENT YES
[2017-12-20 13:30] LABS: BASOPHILS # (AUTO) 0.1 10^3/uL (0.0-0.1); BASOPHILS % (AUTO) 0 % (0-10); EOSINOPHILS % (AUTO) 0 % (0-10); HEMATOCRIT 35 % (35-52); HEMOGLOBIN 11.5 G/DL (11.5-16.0); LYMPHOCYTES # (AUTO) 2.2 X 10^3 (1.0-4.0); LYMPHOCYTES % (AUTO) 7 % (12-44); MEAN CORPUSCULAR HEMOGLOBIN 27 PG (25-34); MEAN CORPUSCULAR HGB CONC 33 G/DL (32-36); MEAN CORPUSCULAR VOLUME 84 FL (80-99); MEAN PLATELET VOLUME 9.1 FL (7.4-10.4); MONOCYTES # (AUTO) 0.2 X 10^3 (0.0-1.0); MONOCYTES % (AUTO) 1 % (0-12); NEUTROPHILS # (AUTO) 29.5 X 10^3 (1.8-7.8); NEUTROPHILS % (AUTO) 92 % (42-75); PLATELET COUNT 469 10^3/uL (130-400); RED BLOOD COUNT 4.19 10^6/uL (4.35-5.85); RED CELL DISTRIBUTION WIDTH 17.4 % (10.0-14.5)
[2017-12-20 13:33] LABS: WHITE BLOOD COUNT 31.9 10^3/uL (4.3-11.0)
[2017-12-20 13:50] LABS: ALANINE AMINOTRANSFERASE 33 U/L (0-55); ALKALINE PHOSPHATASE 63 U/L (40-136); BILIRUBIN,TOTAL 0.4 MG/DL (0.1-1.0); BUN/CREATININE RATIO 24; CALCIUM 9.7 MG/DL (8.5-10.1); CARBON DIOXIDE 28 MMOL/L (21-32); CHLORIDE 102 MMOL/L (98-107); GFR ESTIMATED > 60; GLUCOSE 146 MG/DL (70-105); POTASSIUM 4.1 MMOL/L (3.6-5.0); SODIUM 139 MMOL/L (135-145); TOTAL PROTEIN 6.6 GM/DL (6.4-8.2)
[2017-12-27 14:18] LABS: BASOPHILS % (AUTO) 1 % (0-10); EOSINOPHILS # (AUTO) 0.1 10^3/uL (0.0-0.3); EOSINOPHILS % (AUTO) 2 % (0-10); HEMATOCRIT 32 % (35-52); HEMOGLOBIN 10.4 G/DL (11.5-16.0); LYMPHOCYTES # (AUTO) 1.5 X 10^3 (1.0-4.0); LYMPHOCYTES % (AUTO) 38 % (12-44); MEAN CORPUSCULAR HEMOGLOBIN 27 PG (25-34); MEAN CORPUSCULAR HGB CONC 32 G/DL (32-36); MEAN CORPUSCULAR VOLUME 85 FL (80-99); MEAN PLATELET VOLUME 8.6 FL (7.4-10.4); MONOCYTES # (AUTO) 0.3 X 10^3 (0.0-1.0); MONOCYTES % (AUTO) 7 % (0-12); NEUTROPHILS # (AUTO) 2.1 X 10^3 (1.8-7.8); NEUTROPHILS % (AUTO) 52 % (42-75); PLATELET COUNT 282 10^3/uL (130-400); RED BLOOD COUNT 3.82 10^6/uL (4.35-5.85); RED CELL DISTRIBUTION WIDTH 17.3 % (10.0-14.5)
[2017-12-27 14:38] LABS: BUN/CREATININE RATIO 29; CALCIUM 8.9 MG/DL (8.5-10.1); CARBON DIOXIDE 30 MMOL/L (21-32); CHLORIDE 101 MMOL/L (98-107); CREATININE SERUM 0.79 MG/DL (0.60-1.30); GFR ESTIMATED > 60; GLUCOSE 124 MG/DL (70-105); POTASSIUM 3.8 MMOL/L (3.6-5.0); SODIUM 139 MMOL/L (135-145)
[2018-01-02 12:14] LABS: HEMATOCRIT 33 % (35-52); HEMOGLOBIN 10.4 G/DL (11.5-16.0); MEAN CORPUSCULAR HEMOGLOBIN 27 PG (25-34); MEAN CORPUSCULAR HGB CONC 32 G/DL (32-36); MEAN CORPUSCULAR VOLUME 85 FL (80-99); MEAN PLATELET VOLUME 9.6 FL (7.4-10.4); PLATELET COUNT 165 10^3/uL (130-400); RED BLOOD COUNT 3.84 10^6/uL (4.35-5.85); RED CELL DISTRIBUTION WIDTH 18.8 % (10.0-14.5); WHITE BLOOD COUNT 29.1 10^3/uL (4.3-11.0)
[2018-01-02 12:30] LABS: CALCIUM 9.4 MG/DL (8.5-10.1); CREATININE SERUM 1.22 MG/DL (0.60-1.30); POTASSIUM 3.8 MMOL/L (3.6-5.0)
[2018-01-10 13:10] LABS: BASOPHILS # (AUTO) 0.1 10^3/uL (0.0-0.1); BASOPHILS % (AUTO) 1 % (0-10); EOSINOPHILS # (AUTO) 0.1 10^3/uL (0.0-0.3); EOSINOPHILS % (AUTO) 1 % (0-10); HEMATOCRIT 31 % (35-52); HEMOGLOBIN 9.8 G/DL (11.5-16.0); LYMPHOCYTES # (AUTO) 2.9 X 10^3 (1.0-4.0); LYMPHOCYTES % (AUTO) 21 % (12-44); MEAN CORPUSCULAR HEMOGLOBIN 28 PG (25-34); MEAN CORPUSCULAR HGB CONC 31 G/DL (32-36); MEAN CORPUSCULAR VOLUME 89 FL (80-99); MEAN PLATELET VOLUME 8.8 FL (7.4-10.4); MONOCYTES # (AUTO) 0.5 X 10^3 (0.0-1.0); MONOCYTES % (AUTO) 3 % (0-12); NEUTROPHILS # (AUTO) 10.1 X 10^3 (1.8-7.8); NEUTROPHILS % (AUTO) 74 % (42-75); PLATELET COUNT 332 10^3/uL (130-400); RED BLOOD COUNT 3.49 10^6/uL (4.35-5.85); RED CELL DISTRIBUTION WIDTH 22.7 % (10.0-14.5); WHITE BLOOD COUNT 13.7 10^3/uL (4.3-11.0)
[2018-01-10 13:30] LABS: ALANINE AMINOTRANSFERASE 49 U/L (0-55); ALBUMIN 3.5 GM/DL (3.2-4.5); ALKALINE PHOSPHATASE 60 U/L (40-136); BILIRUBIN,TOTAL 0.4 MG/DL (0.1-1.0); BUN/CREATININE RATIO 18; CALCIUM 8.7 MG/DL (8.5-10.1); CARBON DIOXIDE 28 MMOL/L (21-32); CHLORIDE 106 MMOL/L (98-107); CREATININE SERUM 0.84 MG/DL (0.60-1.30); GFR ESTIMATED > 60; GLUCOSE 119 MG/DL (70-105); POTASSIUM 3.5 MMOL/L (3.6-5.0); SODIUM 143 MMOL/L (135-145); TOTAL PROTEIN 5.9 GM/DL (6.4-8.2)
[2018-01-17 13:08] LABS: BASOPHILS # (AUTO) 0.1 10^3/uL (0.0-0.1); BASOPHILS % (AUTO) 1 % (0-10); EOSINOPHILS % (AUTO) 1 % (0-10); HEMATOCRIT 29 % (35-52); HEMOGLOBIN 9.2 G/DL (11.5-16.0); LYMPHOCYTES # (AUTO) 1.6 X 10^3 (1.0-4.0); LYMPHOCYTES % (AUTO) 37 % (12-44); MEAN CORPUSCULAR HEMOGLOBIN 29 PG (25-34); MEAN CORPUSCULAR HGB CONC 32 G/DL (32-36); MEAN CORPUSCULAR VOLUME 90 FL (80-99); MEAN PLATELET VOLUME 8.1 FL (7.4-10.4); MONOCYTES # (AUTO) 0.5 X 10^3 (0.0-1.0); MONOCYTES % (AUTO) 12 % (0-12); NEUTROPHILS # (AUTO) 2.2 X 10^3 (1.8-7.8); NEUTROPHILS % (AUTO) 49 % (42-75); PLATELET COUNT 259 10^3/uL (130-400); RED BLOOD COUNT 3.23 10^6/uL (4.35-5.85); RED CELL DISTRIBUTION WIDTH 22.7 % (10.0-14.5); WHITE BLOOD COUNT 4.4 10^3/uL (4.3-11.0)
[2018-01-17 13:21] LABS: BUN/CREATININE RATIO 20; CARBON DIOXIDE 29 MMOL/L (21-32); CHLORIDE 105 MMOL/L (98-107); CREATININE SERUM 0.81 MG/DL (0.60-1.30); GFR ESTIMATED > 60; GLUCOSE 114 MG/DL (70-105); POTASSIUM 3.8 MMOL/L (3.6-5.0); SODIUM 142 MMOL/L (135-145)
[2018-01-24 13:17] LABS: BASOPHILS % (AUTO) 1 % (0-10); EOSINOPHILS # (AUTO) 0.1 10^3/uL (0.0-0.3); EOSINOPHILS % (AUTO) 2 % (0-10); HEMATOCRIT 33 % (35-52); LYMPHOCYTES # (AUTO) 1.5 X 10^3 (1.0-4.0); LYMPHOCYTES % (AUTO) 33 % (12-44); MEAN CORPUSCULAR HEMOGLOBIN 28 PG (25-34); MEAN CORPUSCULAR HGB CONC 31 G/DL (32-36); MEAN CORPUSCULAR VOLUME 93 FL (80-99); MEAN PLATELET VOLUME 8.6 FL (7.4-10.4); MONOCYTES # (AUTO) 0.4 X 10^3 (0.0-1.0); MONOCYTES % (AUTO) 8 % (0-12); NEUTROPHILS # (AUTO) 2.6 X 10^3 (1.8-7.8); NEUTROPHILS % (AUTO) 56 % (42-75); PLATELET COUNT 271 10^3/uL (130-400); RED BLOOD COUNT 3.52 10^6/uL (4.35-5.85); RED CELL DISTRIBUTION WIDTH 24.4 % (10.0-14.5); WHITE BLOOD COUNT 4.7 10^3/uL (4.3-11.0)
[2018-01-24 13:35] LABS: ALANINE AMINOTRANSFERASE 28 U/L (0-55); ALBUMIN 3.7 GM/DL (3.2-4.5); ALKALINE PHOSPHATASE 47 U/L (40-136); BILIRUBIN,TOTAL 0.7 MG/DL (0.1-1.0); BUN/CREATININE RATIO 13; CARBON DIOXIDE 29 MMOL/L (21-32); CHLORIDE 104 MMOL/L (98-107); CREATININE SERUM 0.91 MG/DL (0.60-1.30); GFR ESTIMATED > 60; GLUCOSE 118 MG/DL (70-105); POTASSIUM 3.5 MMOL/L (3.6-5.0); SODIUM 143 MMOL/L (135-145); TOTAL PROTEIN 6.1 GM/DL (6.4-8.2)
[2018-01-31 13:20] LABS: BASOPHILS % (AUTO) 1 % (0-10); EOSINOPHILS # (AUTO) 0.1 10^3/uL (0.0-0.3); EOSINOPHILS % (AUTO) 2 % (0-10); HEMATOCRIT 33 % (35-52); HEMOGLOBIN 10.3 G/DL (11.5-16.0); LYMPHOCYTES # (AUTO) 2.1 X 10^3 (1.0-4.0); LYMPHOCYTES % (AUTO) 40 % (12-44); MEAN CORPUSCULAR HEMOGLOBIN 28 PG (25-34); MEAN CORPUSCULAR HGB CONC 31 G/DL (32-36); MEAN CORPUSCULAR VOLUME 92 FL (80-99); MEAN PLATELET VOLUME 8.3 FL (7.4-10.4); MONOCYTES # (AUTO) 0.4 X 10^3 (0.0-1.0); MONOCYTES % (AUTO) 7 % (0-12); NEUTROPHILS # (AUTO) 2.6 X 10^3 (1.8-7.8); NEUTROPHILS % (AUTO) 50 % (42-75); PLATELET COUNT 453 10^3/uL (130-400); RED BLOOD COUNT 3.63 10^6/uL (4.35-5.85); RED CELL DISTRIBUTION WIDTH 22.6 % (10.0-14.5); WHITE BLOOD COUNT 5.3 10^3/uL (4.3-11.0)
[2018-01-31 13:47] LABS: BUN/CREATININE RATIO 15; CALCIUM 9.2 MG/DL (8.5-10.1); CARBON DIOXIDE 27 MMOL/L (21-32); CHLORIDE 107 MMOL/L (98-107); CREATININE SERUM 0.78 MG/DL (0.60-1.30); GFR ESTIMATED > 60; GLUCOSE 106 MG/DL (70-105); SODIUM 143 MMOL/L (135-145)
[2018-02-05 08:56] LABS: BASOPHILS % (AUTO) 0 % (0-10); EOSINOPHILS # (AUTO) 0.1 10^3/uL (0.0-0.3); EOSINOPHILS % (AUTO) 2 % (0-10); HEMATOCRIT 32 % (35-52); HEMOGLOBIN 9.8 G/DL (11.5-16.0); LYMPHOCYTES # (AUTO) 2.3 X 10^3 (1.0-4.0); LYMPHOCYTES % (AUTO) 32 % (12-44); MEAN CORPUSCULAR HEMOGLOBIN 29 PG (25-34); MEAN CORPUSCULAR HGB CONC 31 G/DL (32-36); MEAN CORPUSCULAR VOLUME 93 FL (80-99); MEAN PLATELET VOLUME 8.5 FL (7.4-10.4); MONOCYTES # (AUTO) 0.1 X 10^3 (0.0-1.0); MONOCYTES % (AUTO) 2 % (0-12); NEUTROPHILS # (AUTO) 4.7 X 10^3 (1.8-7.8); NEUTROPHILS % (AUTO) 65 % (42-75); PLATELET COUNT 373 10^3/uL (130-400); RED CELL DISTRIBUTION WIDTH 21.2 % (10.0-14.5); WHITE BLOOD COUNT 7.3 10^3/uL (4.3-11.0)
[2018-02-05 09:25] LABS: ALANINE AMINOTRANSFERASE 31 U/L (0-55); ALBUMIN 3.8 GM/DL (3.2-4.5); ALKALINE PHOSPHATASE 44 U/L (40-136); BILIRUBIN,TOTAL 1.3 MG/DL (0.1-1.0); BUN/CREATININE RATIO 18; CALCIUM 9.4 MG/DL (8.5-10.1); CARBON DIOXIDE 30 MMOL/L (21-32); CHLORIDE 105 MMOL/L (98-107); CREATININE SERUM 0.79 MG/DL (0.60-1.30); GFR ESTIMATED > 60; GLUCOSE 111 MG/DL (70-105); MAGNESIUM 1.9 MG/DL (1.8-2.4); POTASSIUM 4.1 MMOL/L (3.6-5.0); SODIUM 140 MMOL/L (135-145); TOTAL PROTEIN 6.4 GM/DL (6.4-8.2)
[~2018-02-14] VITALS: Ht 154.9 cm; Wt 91.2 kg
[~2018-02-14 12:21] MED LIST changes: +DOCETAXEL IV SCH; +GEMCITABINE HCL IV SCH; -IOHEXOL 350 MG/ML 100 ML (OMNIPAQUE 350) VIAL IV ONE; +NORMAL SALINE IV SCH; -NS 250 ML (IVPB) BAG IV ONE; +NS IV 1000 ML (CANCER CTR) IV SCH; +PALONOSETRON 0.25 MG, DEXAMETHASONE 10 MG/NS 50 ML IVPB IV PRN; +PEGFILGRASTIM 6 MG/0.6 ML ONPRO KIT SQ SCH; +PEGFILGRASTIM 6 MG/0.6ML NEULASTA SC SCH; +VANCOMYCIN IV (CANCER CENTER) 1,000 MG in NS (IVPB) CANCER CENTER 250 ML IV ONE; +[UNRECOGNIZED DRUG - OTHER] IV SCH
[2018-02-14 12:34] LABS: BASOPHILS # (AUTO) 0.1 10^3/uL (0.0-0.1); BASOPHILS % (AUTO) 1 % (0-10); EOSINOPHILS # (AUTO) 0.1 10^3/uL (0.0-0.3); EOSINOPHILS % (AUTO) 0 % (0-10); HEMATOCRIT 31 % (35-52); HEMOGLOBIN 9.8 G/DL (11.5-16.0); LYMPHOCYTES % (AUTO) 13 % (12-44); MEAN CORPUSCULAR HEMOGLOBIN 29 PG (25-34); MEAN CORPUSCULAR HGB CONC 31 G/DL (32-36); MEAN CORPUSCULAR VOLUME 93 FL (80-99); MONOCYTES # (AUTO) 1.8 X 10^3 (0.0-1.0); MONOCYTES % (AUTO) 8 % (0-12); NEUTROPHILS # (AUTO) 17.8 X 10^3 (1.8-7.8); NEUTROPHILS % (AUTO) 78 % (42-75); PLATELET COUNT 120 10^3/uL (130-400); RED BLOOD COUNT 3.37 10^6/uL (4.35-5.85); RED CELL DISTRIBUTION WIDTH 21.7 % (10.0-14.5); WHITE BLOOD COUNT 22.8 10^3/uL (4.3-11.0)
[2018-02-14 12:49] LABS: BUN/CREATININE RATIO 9; CARBON DIOXIDE 26 MMOL/L (21-32); CHLORIDE 100 MMOL/L (98-107); CREATININE SERUM 0.89 MG/DL (0.60-1.30); GFR ESTIMATED > 60; GLUCOSE 102 MG/DL (70-105); POTASSIUM 3.9 MMOL/L (3.6-5.0); SODIUM 138 MMOL/L (135-145)
== END 2018-02-19 | disposition home or self-care (01) ==
LOC: ONC 12:21
PROVIDERS: ATTEND Internal Medicine Hematology & Oncology
DX: Z51.11 Encounter for antineoplastic chemotherapy (principal); C49.3 Malignant neoplasm of connective and soft tissue of thorax; C73 Malignant neoplasm of thyroid gland; J90 Pleural effusion, not elsewhere classified; L03.115 Cellulitis of right lower limb; E89.0 Postprocedural hypothyroidism; I10 Essential (primary) hypertension; Z76.89 Persons encountering health services in other specified circumstances; Z79.899 Other long term (current) drug therapy
CPT/HCPCS: 36415; 36591; 80048; 80053; 80202; 83735; 84432; 85025; 86800; 96365; 96372; 96375; 96413; 96417; 99213; 99214

== ENCOUNTER → 2018-02-14 | Outpatient (CLI) | payer MEDICARE, OTHER ==
[~2018-02-14] MED LIST changes: +IOHEXOL 350 MG/ML 100 ML (OMNIPAQUE 350) VIAL IV ONE; +NS 250 ML (IVPB) BAG IV ONE
--- NOTE | 2018-02-14 14:21 | Diagnostic Imaging Report ---
PROCEDURE: CT chest and abdomen with and without contrast TECHNIQUE: Multiple axial CT images through the thorax and abdomen were obtained with and without intravenous contrast. INDICATION: Spindle cell sarcoma. COMPARISON: Exam compared with chest CT 11/22/2017. Abdominal imaging comparison is limited only to the visualized [id number] obtained during a lumbar CT 11/20/2015. FINDINGS: CHEST: Very large right chest mass and measures very similar to the previous, today 14.7 cm cephalocaudal, previously 15.3 cm. In axial plane, its dimensions are maximal 14 x 14 cm today, previously 15 x 15 cm. Subjacent passive atelectasis of the dependent right upper lobe shows some improvement in lingular collapse that is also at least somewhat improved. Volume of peripheral pleural fluid in the right chest shows only a slight reduction. Mass effect displacing the heart and mediastinum contralaterally to the left is slightly improved. Left lung is unchanged. There are some increased patchy sclerotic changes involving mid thoracic vertebral bodies and their endplates. Bony metastatic disease cannot be confidently excluded; consider whole-body bone scan. Sclerosis merely on the basis of degenerative disease would not be expected to have changed in this interim. A treated fracture from kyphoplasty is stable. Sternum, manubrium, ribs, and shoulders are unremarkable where visualized. ABDOMEN: Mass effect at the level of the caudate lobe of the liver measures 4.2 x 3.5 cm, not significantly changed from prior. The remaining liver appears unremarkable. There is no bile duct dilatation. Pancreas is negative. There is no adrenal mass. There are benign renal parapelvic cysts. Unobstructed kidneys appear otherwise normal. There is no omental infiltration and no mesenteric or retroperitoneal adenopathy. The spleen is normal. IMPRESSION: CHEST: Very large right chest mass, slightly smaller than on prior with slightly decreased mass effect and a mild reduction in pleural fluid and some improvement in expansion of the right upper lobe and middle lobes. Some increased sclerotic changes to mid thoracic vertebral bodies of uncertain significance. The remaining bony structures are unremarkable; consider bone scan as further evaluation. ABDOMEN: Caudate lobe liver mass measures slightly larger than on prior, but this may be on an improved technical basis. No other soft tissue lesion within the abdomen. No suspicious abdominal bony lesion. Stable treated L1 vertebral body fracture with kyphoplasty. Dictated by: Dictated on workstation # [id number]
== END ==
LOC: RAD 11:36
PROVIDERS: ATTEND Internal Medicine Hematology & Oncology
DX: C49.9 Malignant neoplasm of connective and soft tissue, unspecified (principal); R22.2 Localized swelling, mass and lump, trunk; J90 Pleural effusion, not elsewhere classified; G95.89 Other specified diseases of spinal cord; R16.0 Hepatomegaly, not elsewhere classified; Z87.81 Personal history of (healed) traumatic fracture
CPT/HCPCS: 71270; 74170

== ENCOUNTER 2018-03-14 14:09 | Outpatient (RCR) | payer MEDICARE, OTHER ==
[~2018-03-14 14:09] MED LIST changes: -DOCETAXEL IV SCH; -GEMCITABINE HCL IV SCH; -NORMAL SALINE IV SCH; -NS IV 1000 ML (CANCER CTR) IV SCH; -PALONOSETRON 0.25 MG, DEXAMETHASONE 10 MG/NS 50 ML IVPB IV PRN; -PEGFILGRASTIM 6 MG/0.6 ML ONPRO KIT SQ SCH; -PEGFILGRASTIM 6 MG/0.6ML NEULASTA SC SCH; -VANCOMYCIN IV (CANCER CENTER) 1,000 MG in NS (IVPB) CANCER CENTER 250 ML IV ONE; -[UNRECOGNIZED DRUG - OTHER] IV SCH
--- NOTE | 2018-03-14 14:26 | Diagnostic Imaging Report ---
Indication: Thoracic sarcoma and dyspnea PA and lateral views of the chest are obtained with comparison made to study of 01/17/2018. FINDINGS: There is near complete opacification of the right hemithorax with what appears to be a large mass involving the lower two thirds of the right hemithorax. Right anterior chest wall port is again noted with catheter tip reaching the upper superior vena cava. Left lung appears clear. No significant pleural fluid is identified. IMPRESSION: Overall, there has been no significant change in large mass within the right hemithorax resulting in near complete opacification. No new abnormality is seen. Dictated by: Dictated on workstation # [id number]
[2018-03-29] MEDS ORDERED: PRD20T PO (13:40)
[2018-03-29] MEDS ORDERED: VANC125S PO (13:40)
== END 2018-04-09 | disposition home or self-care (01) ==
LOC: RAD 14:09
PROVIDERS: ATTEND Internal Medicine Hematology & Oncology
DX: C76.1 Malignant neoplasm of thorax (principal)
CPT/HCPCS: 71046

== ENCOUNTER 2018-03-27 12:21 | Inpatient (IN) | payer MEDICARE, OTHER ==
[~2018-03-27] VITALS: Ht 154.9 cm; Wt 93.9 kg
[~2018-03-27 12:21] MED LIST changes: -IOHEXOL 350 MG/ML 150 ML (OMNIPAQUE 350) VIAL IV ONE; -NS 250 ML (IVPB) BAG IV ONE; -PRD20T PO; -RECEIVED CONTRAST (Hold Metformin) IV SCH; -VANC125S PO
--- OUTSIDE RECORDS SUMMARY | 2018-03-27 12:28 | XMS REPORT | Clinical Summary ---
Author Author [facility] Organization [facility] Address Unknown Phone Unavailable Care Team Providers Care [employer] Operator Name Role Phone Tad Campbell MD PCP Source Comments Some departments are not documenting in the electronic medical record. If you do not see the information that you expected, contact Release of Information in the Health Information Management department at [phone] for further assistance in locating additional records.[facility] Allergies Active Allergy Reactions Severity Noted [...] Overview: Added automatically from request for surgery [id number] Family History Medical History Relation Name Comments [...] Taken Blood Pressure 142/75 11/17/2017 9:00 AM [facility] Pulse 99 11/16/2017 8:00 PM [facility] Temperature 36.8 C (98.2 F) 11/17/2017 9:00 AM [facility] Respiratory Rate - - Oxygen Saturation 93% 11/17/2017 4:00 PM [facility] Inhaled Oxygen - - Concentration Weight 90.4 kg (199 lb 4.7 oz) 11/14/2017 5:33 PM [facility] Height 154.9 cm (5' 1") 11/09/2017 12:13 AM [facility] Body Mass Index 37.66 11/14/2017 5:33 PM [facility] Plan of Treatment Health Maintenance Due Date Last Done Comments HEPATITIS C SCREENING 1945 PHYSICAL (COMPREHENSIVE) 1953 EXAM PERTUSSIS VACCINE 1957 TETANUS VACCINE 1963 BREAST CANCER SCREENING 1986 COLORECTAL CANCER 01/26/1996 SCREENING SHINGLES RECOMBINANT 01/26/1996 VACCINE (1 of 2) OSTEOPOROSIS SCREENING 2011 PNEUMONIA (PCV13/PPSV23) 2011 VACCINES (1 of 2 - PCV13) INFLUENZA VACCINE 06/10/2018 Results Not on filefrom Last 3 Months
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
--- NOTE | 2018-03-27 12:54 | ED Respiratory ---
General Chief Complaint: Respiratory Problems Stated Complaint: SOB Source: patient Exam Limitations: no limitations (ABRAHAN BERMUDEZ MD) History of Present Illness Date Seen by Provider: Mar 27, 2018 Time Seen by Provider: 12:50 Initial Comments tHE PATIENT IS A 73-YEAR-OLD WHITE FEMALE KNOWN TO ME. 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 Her last chemotherapy was last week. She presented to the cancer center today and told Dr. LEON that she was increasingly short of breath today. He then did a CT pulmonary angiogram without any dramatic findings. However in review of this she has a large sarcoma of the right lung and has a significant pleural effusion. She has previously had this drained a couple of times by Dr. Fritz from the surgery service. She has not had a repeat thoracentesis since about December. In examining her previous laboratory it is noted that the previous blood gas done in November 2017 showed a PO2 of 66 on 2 L of oxygen by nasal cannula. Severity: moderate Modifying Factors: Improves With Oxygen (ABRAHAN BERMUDEZ MD) Allergies and Home Medications Allergies Coded Allergies: amoxicillin (Unverified Allergy, Unknown, 11/28/17) clavulanic acid (Unverified Allergy, Unknown, 11/28/17) meperidine (Verified Allergy, Unknown, RECEIVED FENTANYL IN SURGERY, ) PT STATES "DEMEROL MAKES ME DIZZY AND TURNS ME ANDERSON" Uncoded Allergies: TAPE (Allergy, Unknown, 01/18/07) Home Medications Calcium Carbonate/Vitamin D3 1 Each Tablet, 1 TAB PO DAILY, (Reported) Docusate Sodium 100 Mg Capsule, 100 MG PO DAILY PRN for CONSTIPATION-1ST LINE, ( Reported) Enalapril Maleate 10 Mg Tablet, 10 MG PO DAILY, (Reported) Furosemide 20 Mg Tablet, 20 MG PO DAILY, (Reported) Levothyroxine Sodium 137 Mcg Tablet, 137 MCG PO DAILY, (Reported) Loperamide HCl 2 Mg Tablet, 2 MG PO UD PRN for DIARRHEA, (Reported) Multivitamin with Minerals 1 Each Tablet, 1 TAB PO DAILY, (Reported) Ondansetron HCl 8 Mg Tablet, 8 MG PO Q8H PRN for NAUSEA/VOMITING-1ST LINE, ( Reported) Oxycodone HCl 5 Mg Tablet, 5 MG PO EVERY 4-6 HOURS PRN for PAIN-SEVERE, ( Reported) Prednisone 20 Mg Tab, 40 MG PO DAILY@0700 Prescribed by: ALEENA HUNT on 03/29/18 1340 Prochlorperazine Maleate 10 Mg Tablet, 10 MG PO Q6H PRN for NAUSEA/VOMITING-4TH LINE, (Reported) Vancomycin HCl 125 Mg/2.5 Ml Syringe, 125 MG PO QID Prescribed by: ALEENA HUNT on 03/29/18 1340 Verapamil HCl 240 Mg Tablet.er, 240 MG PO DAILY, (Reported) Vitamin B Complex & Vit C No.4 150 Mg Tablet, 150 MG PO DAILY, (Reported) Patient Home Medication List Home Medication List Reviewed: Yes (LINDA FENTON MD) Review of Systems Constitutional: see HPI EENTM: no symptoms reported Respiratory: see HPI, dyspnea on exertion, orthopnea, short of breath Cardiovascular: no symptoms reported Gastrointestinal: no symptoms reported Genitourinary: no symptoms reported Musculoskeletal: no symptoms reported Skin: no symptoms reported Psychiatric/Neurological: No Symptoms Reported Hematologic/Lymphatic: No Symptoms Reported Immunological/Allergic: no symptoms reported (ABRAHAN BERMUDEZ MD) Past Jkzpgul-Ijfuaj-Kvypbe Hx Patient Social History Alcohol Use: Denies Use Recreational Drug Use: No Smoking Status: Never a Smoker 2nd Hand Smoke Exposure: No Recent Foreign Travel: No Contact w/Someone Who Travel: No Recent Hopitalizations: Yes Physical Abuse: No Sexual Abuse: No (ABRAHAN BERMUDEZ MD) Immunizations Up To Date Date of Pneumonia Vaccine: May 30, 2017 Date of Influenza Vaccine: Jun 10, 2017 (ABRAHAN BERMUDEZ MD) Seasonal Allergies Seasonal Allergies: No (ABRAHAN BERMUDEZ MD) Past Medical History Surgeries: Yes (R LEG VARICOSE VEIN STRIPPED, BREAST LYMPH NODE REMOVED, bladder tie up) Gallbladder, Hysterectomy, Thyroidectomy Respiratory: Yes (tb as toddler- gets cxr q 5 yrs, lung cancer, thoracentesis done 11/26) Tuberculosis Currently Using CPAP: No Currently Using BIPAP: No Cardiac: Yes Hypertension Neurological: No (had seizure during EEG test, none before or after) Reproductive Disorders: No Genitourinary: No Gastrointestinal: No Musculoskeletal: Yes Arthritis, Chronic Back Pain Endocrine: No (thyroidectomy) HEENT: No Cancer: Yes Lung What Type of Treatment Did You: Chemotherapy Psychosocial: No Nursing Suicide Risk Score: 0 Integumentary: No Blood Disorders: No (ABRAHAN BERMUDEZ MD) Family Medical History Arthritis G8 SISTER Kidney disease G8 SISTER Neoplasm 19 FATHER (lung/colon/ liver ca) 19 MOTHER (leukemia) Cancer (ABRAHAN BERMUDEZ MD) Physical Exam Vital Signs - First Documented 03/27/18 12:25 Temp 99.0 Pulse 94 Resp 26 B/P (MAP) 153/70 (97) Pulse Ox 93 O2 Delivery Nasal Cannula O2 Flow Rate 4.00 (LINDA FENTON MD) Capillary Refill : (ABRAHAN BERMUDEZ MD) Height: 5'1.00" Weight: 184lbs. 0.6oz. 83.441409je; 35.3 BMI Method:Stated General Appearance: mild distress Eyes: Bilateral Eye Normal Inspection HEENT: normal ENT inspection Neck: full range of motion Respiratory: other (dullness to percussion and muffled breath sounds right as compared to left) Cardiovascular: normal peripheral pulses, regular rate, rhythm, no edema, no gallop, no JVD, no murmur Gastrointestinal: normal bowel sounds, non tender, soft, no organomegaly, no pulsatile mass Extremities: normal range of motion, non-tender, normal inspection, no pedal edema, no calf tenderness, normal capillary refill, pelvis stable Neurologic/Psychiatric: solutions development analyst II-XII nml as tested, no motor/sensory deficits, alert, normal mood/affect, oriented x 3 Skin: normal color, warm/dry, cyanosis, cool, diaphoresis, damp Lymphatic: no adenopathy (ABRAHAN BERMUDEZ MD) Focused Exam Lactate Level 03/27/18 15:05: Lactic Acid Level 1.28 (LINDA FENTON MD) Lactic Acid Level Laboratory Tests Test 03/27/18 15:05 Lactic Acid Level 1.28 MMOL/L (0.50-2.00) (LINDA FENTON MD) Progress/Results/Core Measures Suspected Sepsis SIRS Temperature: Pulse: Respiratory Rate: Blood Pressure / Mean: (ABRAHAN BERMUDEZ MD) Results/Orders Lab Results Laboratory Tests Test 03/27/18 12:30 03/27/18 14:55 03/27/18 15:05 Range/Units White Blood Count 29.6 H 4.3-11.0 10^3/uL Red Blood Count 3.03 L 4.35-5.85 10^6/uL Hemoglobin 9.2 L 11.5-16.0 G/DL Hematocrit 29 L 35-52 % Mean Corpuscular Volume 97 80-99 FL Mean Corpuscular Hemoglobin 30 25-34 PG Mean Corpuscular Hemoglobin Concent 31 L 32-36 G/DL Red Cell Distribution Width 21.9 H 10.0-14.5 % Platelet Count 128 L 130-400 10^3/uL Mean Platelet Volume 9.9 7.4-10.4 FL Neutrophils (%) (Auto) 90 H 42-75 % Lymphocytes (%) (Auto) 7 L 12-44 % Monocytes (%) (Auto) 3 0-12 % Eosinophils (%) (Auto) 0 0-10 % Basophils (%) (Auto) 1 0-10 % Neutrophils # (Auto) 26.5 H 1.8-7.8 X 10^3 Lymphocytes # (Auto) 2.1 1.0-4.0 X 10^3 Monocytes # (Auto) 0.8 0.0-1.0 X 10^3 Eosinophils # (Auto) 0.0 0.0-0.3 10^3/uL Basophils # (Auto) 0.2 H 0.0-0.1 10^3/uL Neutrophils % (Manual) 69 % Lymphocytes % (Manual) 7 % Monocytes % (Manual) 3 % Eosinophils % (Manual) 0 % Basophils % (Manual) 0 % Metamyelocytes % 2 % Myelocytes % 2 % Band Neutrophils 15 % Reactive Lymphocytes 2 % Poikilocytosis SLIGHT Anisocytosis MODERATE Stomatocytes SLIGHT Elliptocytes SLIGHT Sodium Level 137 135-145 MMOL/L Potassium Level 4.2 3.6-5.0 MMOL/L Chloride Level 102 98-107 MMOL/L Carbon Dioxide Level 29 21-32 MMOL/L Anion Gap 6 5-14 MMOL/L Blood Urea Nitrogen 19 H 7-18 MG/DL Creatinine 1.08 0.60-1.30 MG/DL Estimat Glomerular Filtration Rate 50 BUN/Creatinine Ratio 18 Glucose Level 100 70-105 MG/DL Calcium Level 9.3 8.5-10.1 MG/DL Total Bilirubin 0.6 0.1-1.0 MG/DL Aspartate Amino Transf (AST/SGOT) 50 H 5-34 U/L Alanine Aminotransferase (ALT/SGPT) 59 H 0-55 U/L Alkaline Phosphatase 95 40-136 U/L Total Protein 5.9 L 6.4-8.2 GM/DL Albumin 3.6 3.2-4.5 GM/DL Urine Color YELLOW Urine Clarity CLEAR Urine pH 5 5-9 Urine Specific [place] 1.015 L 1.016-1.022 Urine Protein 2+ H NEGATIVE Urine Glucose (UA) NEGATIVE NEGATIVE Urine Ketones NEGATIVE NEGATIVE Urine Nitrite NEGATIVE NEGATIVE Urine Bilirubin NEGATIVE NEGATIVE Urine Urobilinogen NORMAL NORMAL MG/DL Urine Leukocyte Esterase 1+ H NEGATIVE Urine RBC (Auto) 1+ H NEGATIVE Urine RBC RARE /HPF Urine WBC 0-2 /HPF Urine Squamous Epithelial Cells 5-10 /HPF Urine Renal Epithelial Cells NONE /HPF Urine Crystals PRESENT H /LPF Urine Uric Acid Crystals FEW H /LPF Urine Bacteria NEGATIVE /HPF Urine Casts NONE /LPF Urine Mucus NEGATIVE /LPF Urine Culture Indicated NO Lactic Acid Level 1.28 0.50-2.00 MMOL/L (LINDA FENTON MD) Micro Results Microbiology 03/27/18 Blood Culture - Preliminary, Resulted No growth 03/27/18 Blood Culture - Preliminary, Resulted No growth (LINDA FENTON MD) My Orders Orders - LINDA FENTON MD Clear Liquid (03/27/18 Lunch) Cbc With Automated Diff (03/27/18 14:32) Comprehensive Metabolic Panel (03/27/18 14:32) Manual Differential (03/27/18 12:30) Ua Culture If Indicated (03/27/18 15:12) Lactic Acid Analyzer (03/27/18 15:12) Blood Culture (03/27/18 15:12) Lidocaine 1% Inj 20 Ml (Xylocaine 1% Inj (03/27/18 15:31) Cefepime Injection (Maxipime Injection) (03/27/18 16:36) (LNIDA FENTON MD) Medications Given in ED (LINDA FENTON MD) Vital Signs/I&O 03/27/18 12:25 Temp 99.0 Pulse 94 Resp 26 B/P (MAP) 153/70 (97) Pulse Ox 93 O2 Delivery Nasal Cannula O2 Flow Rate 4.00 (LINDA FENTON MD) Vital Signs/I&O Capillary Refill : (ABRAHAN BERMUDEZ MD) Progress Note : Progress Note 1330: I assumed care on the patient from Dr. BERMUDEZ pending evaluation from Dr. Fritz for thoracentesis. I have reexamined the patient. She is here with shortness of breath and has mass and pleural effusion on the right that is quite significant and will need thoracentesis. 1430: I have added labs for CBC and CMP. Pending call back from Dr. Fritz. 1451: Dr. Fritz will see the patient in the ER and set up for thoracentesis with probable drain placement. Due to patient's marked elevated white count, will add blood cultures and lactic acid. We will also add UA. Monitor patient. 1500: Dr. Fritz in the ER evaluating. 1630: Dr. Fritz has done thoracentesis in room 600 mL of fluid. Patient will need admission due to probable pneumonia. Lactic acid is not elevated but we do believe at this time that there is likely pneumonia given the elevated white count and recent history of fever and shortness of breath. She is on chemotherapy. We have talked with Dr. Leon and he agrees with treatment for pneumonia and will consult in the hospital. I have discussed the case with Dr. Hunt, hospitalist on-call and she accepts patient for admission, inpatient status. We will initiate cefepime and vancomycin. I have written orders for pneumonia protocol and admission including pain meds if she is having pain after the thoracentesis. We did discuss quality verses quantity for end-of-life care. She would like to have quality verses quantity. We discussed palliative care consult and patient has accepted so this was written for. Admit, inpatient status. Patient and family agree with plan. (LINDA FENTON MD) Diagnostic Imaging Diagonstic Imaging: CT Plain Films/CT/US/NM/MRI: chest Comments CT done earlier today inserted here for information purposes only. Ordered from outside provider. [place] NAME: JONATHON FONTENOT [facility] REC#: [id number] PT STATUS: REG CLI : 1945 PHYSICIAN: AUSTIN LEON MD ADMIT DATE: 03/27/18/RAD Draft Date of Exam:03/27/18 CT ANGIO CHEST W PROCEDURE: CT angiography of the chest with contrast. TECHNIQUE: Multiple contiguous axial images were obtained through the chest after uneventful bolus administration of intravenous contrast. Reconstructed CTA MIP acquisitions were also performed. INDICATION: Shortness of breath and lung carcinoma. COMPARISON: Comparison is made with prior exam from 02/14/2018. FINDINGS: Right chest wall port is in place. Large mass occupying the right chest is again noted, measuring approximately 15.8 cm transverse by 11.7 cm AP compared with 15.3 x 11.5 cm on prior. This is heterogeneous. This does produce some compressive atelectasis in adjacent lung, similar to prior study. There is moderate atelectasis in the right middle lobe and right lower lobe. There is some aeration of the right upper lobe, similar to prior exam. A small amount of pleural fluid on the left has developed since prior CT. No definite thromboemboli have developed within the pulmonary arterial system. The thoracic aorta is normal caliber. No dissection is seen. No pericardial fluid. A right-sided pleural effusion persists. Upper abdomen again demonstrates a mass in the caudate lobe of the liver, stable in appearance. IMPRESSION: Large right chest mass, very similar in size and appearance to the CT study from 02/14/2018. Right-sided pleural effusion is stable. There is continues to be some atelectasis in the right lower lobe and right middle lobe. Right upper lobe is clear. Patient has developed a small left pleural effusion since prior CT. No definite evidence of pulmonary embolism or dissection is seen. Dictated on workstation # [id number] Dict: 03/27/18 1131 Trans: 03/27/18 1143 [id number] Interpreted by: JOSE CRESPO MD Electronically signed by: (LINDA FENTON MD) Departure Communication (Admissions) 1250. A page was placed to Dr. Fritz who has previously done thoracentesis on the patient. He is currently scrubbed in on a colectomy and will come to the ER when he is done (ABRAHAN BERMUDEZ MD) Time/Spoke to Admitting Phy: 16:30 Time/Spoke to Consulting Phy: 16:16 (LINDA FENTON MD) Impression Primary Impression: Lung cancer Qualified Codes: C34.31 - Malignant neoplasm of lower lobe, right bronchus or lung Additional Impressions: Bilateral pleural effusion Pneumonia involving right lung Qualified Codes: J18.9 - Pneumonia, unspecified organism Disposition: 09 ADMITTED INPATIENT Condition: Stable Admissions Decision to Admit Reason: Admit from ER (General) Decision to Admit/Date: Mar 27, 2018 Time/Decision to Admit Time: 16:16 (LINDA FENTON MD) Departure-Patient Inst. Referrals: SUMANTH ZHAO MD (PCP/Family) Primary Care Physician Scripts Vancomycin HCl (Vancomycin ORAL Compound 250mg/5 ml) 125 Mg/2.5 Ml Syringe 125 MG PO QID for 10 Days, SYRINGE Prov: ALEENA HUNT MD 03/29/18 Prednisone (Prednisone) 20 Mg Tab 40 MG PO DAILY@0700 for 7 Days, #10 TAB Prov: ALEENA HUNT MD 03/29/18 ABRAHAN BERMUDEZ MD Mar 27, 2018 12:54 LINDA FENTON MD Mar 27, 2018 15:03
[2018-03-27 14:39] LABS: BASOPHILS # (AUTO) 0.2 10^3/uL (0.0-0.1); BASOPHILS % (AUTO) 1 % (0-10); EOSINOPHILS % (AUTO) 0 % (0-10); HEMATOCRIT 29 % (35-52); HEMOGLOBIN 9.2 G/DL (11.5-16.0); LYMPHOCYTES # (AUTO) 2.1 X 10^3 (1.0-4.0); LYMPHOCYTES % (AUTO) 7 % (12-44); MEAN CORPUSCULAR HEMOGLOBIN 30 PG (25-34); MEAN CORPUSCULAR HGB CONC 31 G/DL (32-36); MEAN CORPUSCULAR VOLUME 97 FL (80-99); MEAN PLATELET VOLUME 9.9 FL (7.4-10.4); MONOCYTES # (AUTO) 0.8 X 10^3 (0.0-1.0); MONOCYTES % (AUTO) 3 % (0-12); NEUTROPHILS # (AUTO) 26.5 X 10^3 (1.8-7.8); NEUTROPHILS % (AUTO) 90 % (42-75); PLATELET COUNT 128 10^3/uL (130-400); RED BLOOD COUNT 3.03 10^6/uL (4.35-5.85); RED CELL DISTRIBUTION WIDTH 21.9 % (10.0-14.5); WHITE BLOOD COUNT 29.6 10^3/uL (4.3-11.0)
[2018-03-27 14:50] LABS: ALBUMIN 3.6 GM/DL (3.2-4.5); BILIRUBIN,TOTAL 0.6 MG/DL (0.1-1.0); CALCIUM 9.3 MG/DL (8.5-10.1); CREATININE SERUM 1.08 MG/DL (0.60-1.30); POTASSIUM 4.2 MMOL/L (3.6-5.0); TOTAL PROTEIN 5.9 GM/DL (6.4-8.2)
[2018-03-27 15:17] LABS: BAND NEUTROPHILS 15 %; BASOPHILS % (MANUAL) 0 %; EOSINOPHILS % (MANUAL) 0 %; LYMPHOCYTES % (MANUAL) 7 %; METAMYELOCYTES % 2 %; MONOCYTES % (MANUAL) 3 %; MYELOCYTES % 2 %; NEUTROPHILS % (MANUAL) 69 %
[2018-03-27 15:17] LABS: BILIRUBIN,URINE NEGATIVE (NEGATIVE); CLARITY,URINE CLEAR; COLOR,URINE YELLOW; GLUCOSE, URINE (UA) NEGATIVE (NEGATIVE); KETONES,URINE NEGATIVE (NEGATIVE); LEUKOCYTE ESTERASE ,URINE 1+ (NEGATIVE); NITRITE,URINE NEGATIVE (NEGATIVE); PH,URINE 5 (5-9); PROTEIN,URINE 2+ (NEGATIVE); UROBILINOGEN,URINE NORMAL (NORMAL)
[2018-03-27 15:18] LABS: ANISOCYTOSIS MODERATE; ELLIPT/OVALOCYTES SLIGHT; POIKILOCYTOSIS SLIGHT; REACTIVE LYMPHOCYTES 2 %; STOMATOCYTES SLIGHT
[2018-03-27] MEDS ORDERED: LIDOCAINE 1% INJ 20 ML 20 ML VIAL ONE (15:31)
[2018-03-27 15:39] LABS: BACTERIA,URINE NEGATIVE /HPF; RBC,URINE RARE /HPF; URIC ACID CRYSTALS,URINE FEW /LPF; WBC,URINE 0-2 /HPF
[2018-03-27] MEDS ORDERED: LIDOCAINE 1% INJ 20 ML 20 ML VIAL INJ ONE (16:00)
[2018-03-27] MEDS ORDERED: CEFEPIME INJECTION 2,000 MG in NS (IVPB) 50 ML IV STA (16:36)
--- NOTE | 2018-03-27 16:39 | Consultation ---
History of Present Illness History of Present Illness Patient Consulted On(anjel/time) 03/27/18 16:34 Date Seen by Provider: Mar 27, 2018 Time Seen by Provider: 16:34 History of Present Illness Consult requested by Dr. Bermudez for right pleural recurrent effusion and right lung mass. Seen and evaluated in the emergency department. Patient is a 73-year-old female known to me she is undergoing chemotherapy for a right lung cancer and has had an recurrent pleural effusion. Patient is having increased shortness of breath today and had a CTA performed demonstrating a stable right lung mass and does have a right pleural effusion and also left pleural effusion. She states it's hard to catch her breath. Any activity makes it more difficult and worse. Nothing was seems to make it better. She does have a white blood cell count of 29,000. Patient's last chemotherapy was last week. Last time we had to do a right thoracentesis was approximately 3 months ago. Allergies and Home Medications Allergies Coded Allergies: amoxicillin (Unverified Allergy, Unknown, 11/28/17) clavulanic acid (Unverified Allergy, Unknown, 11/28/17) meperidine (Verified Allergy, Unknown, RECEIVED FENTANYL IN SURGERY, ) PT STATES "DEMEROL MAKES ME DIZZY AND TURNS ME ANDERSON" Uncoded Allergies: TAPE (Allergy, Unknown, 01/18/07) Home Medications Calcium Carbonate/Vitamin D3 1 Each Tablet, 1 TAB PO DAILY, (Reported) Cefdinir 300 Mg Capsule, 300 MG PO twice a day Prescribed by: ABRAHAN BERMUDEZ on 01/07/18 1344 Docusate Sodium 100 Mg Capsule, 100 MG PO DAILY PRN for CONSTIPATION-1ST LINE, ( Reported) Enalapril Maleate 10 Mg Tablet, 10 MG PO DAILY, (Reported) Furosemide 20 Mg Tablet, 10 MG PO DAILY, (Reported) TAKES 1/2 (20MG) TABLET Levothyroxine Sodium 137 Mcg Tablet, 137 MCG PO DAILY, (Reported) LAST FILLED #90 09-19-17 Loperamide HCl 2 Mg Tablet, 2 MG PO UD PRN for DIARRHEA, (Reported) Multivitamin with Minerals 1 Each Tablet, 1 TAB PO DAILY, (Reported) Ondansetron HCl 8 Mg Tablet, 8 MG PO Q8H PRN for NAUSEA/VOMITING-1ST LINE, ( Reported) Oxycodone HCl 5 Mg Tablet, 5 MG PO EVERY 4-6 HOURS PRN for PAIN-SEVERE, ( Reported) Prochlorperazine Maleate 10 Mg Tablet, 10 MG PO Q6H PRN for NAUSEA/VOMITING-4TH LINE, (Reported) Verapamil HCl 240 Mg Tablet.er, 240 MG PO DAILY, (Reported) Vitamin B Complex & Vit C No.4 150 Mg Tablet, 150 MG PO DAILY, (Reported) Patient Home Medication List Home Medication List Reviewed: Yes Past Flghfgp-Rdzrvj-Lxktfn Hx Patient Social History Alcohol Use: Denies Use Recreational Drug Use: No Smoking Status: Never a Smoker 2nd Hand Smoke Exposure: No Recent Foreign Travel: No Contact w/Someone Who Travel: No Recent Infectious Disease Expo: No Recent Hopitalizations: Yes Immunizations Up To Date Date of Pneumonia Vaccine: May 30, 2017 Date of Influenza Vaccine: Jun 10, 2017 Seasonal Allergies Seasonal Allergies: No Surgeries History of Surgeries: Yes (R LEG VARICOSE VEIN STRIPPED, BREAST LYMPH NODE REMOVED, bladder tie up) Surgeries: Gallbladder, Hysterectomy, Thyroidectomy Respiratory History of Respiratory Disorde: Yes (tb as toddler- gets cxr q 5 yrs, lung cancer, thoracentesis done 11/26) Respiratory Disorders: Tuberculosis Cardiovascular History of Cardiac Disorders: Yes Cardiac Disorders: Hypertension Neurological History of Neurological Disord: No (had seizure during EEG test, none before or after) Reproductive System Hx Reproductive Disorders: No Genitourinary History of Genitourinary Disor: No Gastrointestinal History of Gastrointestinal Di: No Musculoskeletal History of Musculoskeletal Dis: Yes Musculoskeletal Disorders: Arthritis, Chronic Back Pain Endocrine History of Endocrine Disorders: No (thyroidectomy) HEENT History of HEENT Disorders: No Cancer History of Cancer: Yes Cancer: Lung Psychosocial History of Psychiatric Problem: No Integumentary History of Skin or Integumenta: No Blood Transfusions History of Blood Disorders: No Family Medical History Significant Family History: Cancer Family Medial History: Arthritis G8 SISTER Kidney disease G8 SISTER Neoplasm 19 FATHER (lung/colon/ liver ca) 19 MOTHER (leukemia) Review of Systems-General Constitutional: no symptoms reported EENTM: no symptoms reported Respiratory: see HPI Cardiovascular: no symptoms reported Gastrointestinal: no symptoms reported Genitourinary: no symptoms reported Musculoskeletal: no symptoms reported Skin: no symptoms reported Psychiatric/Neurological: No Symptoms Reported Physical Exam-General Problems Physical Exam Vital Signs Vital Signs - First Documented 03/27/18 12:25 Temp 99.0 Pulse 94 Resp 26 B/P (MAP) 153/70 (97) Pulse Ox 93 O2 Delivery Nasal Cannula O2 Flow Rate 4.00 Capillary Refill : Less Than 3 Seconds General Appearance: mild distress HEENT: PERRL/EOMI Neck: supple Respiratory: decreased breath sounds (Right side decreased breath sounds and slightly labored.) Cardiovascular: regular rate, rhythm Gastrointestinal: non tender, soft Rectal: deferred Back: normal inspection Extremities: non-tender, normal inspection Neurologic/Psychiatric: fiscal manager II-XII nml as tested, no motor/sensory deficits, alert, normal mood/affect, oriented x 3 Skin: normal color, warm/dry Lymphatic: no adenopathy Data Review Labs Laboratory Tests 03/27/18 12:30: White Blood Count 29.6H, Red Blood Count 3.03L, Hemoglobin 9.2L, Hematocrit 29L , Mean Corpuscular Volume 97, Mean Corpuscular Hemoglobin 30, Mean Corpuscular Hemoglobin Concent 31L, Red Cell Distribution Width 21.9H, Platelet Count 128L, Mean Platelet Volume 9.9, Neutrophils (%) (Auto) 90H, Lymphocytes (%) (Auto) 7L , Monocytes (%) (Auto) 3, Eosinophils (%) (Auto) 0, Basophils (%) (Auto) 1, Neutrophils # (Auto) 26.5H, Lymphocytes # (Auto) 2.1, Monocytes # (Auto) 0.8, Eosinophils # (Auto) 0.0, Basophils # (Auto) 0.2H, Neutrophils % (Manual) 69, Lymphocytes % (Manual) 7, Monocytes % (Manual) 3, Eosinophils % (Manual) 0, Basophils % (Manual) 0, Metamyelocytes % 2, Myelocytes % 2, Band Neutrophils 15 , Reactive Lymphocytes 2, Poikilocytosis SLIGHT, Anisocytosis MODERATE, Stomatocytes SLIGHT, Elliptocytes SLIGHT, Sodium Level 137, Potassium Level 4.2 , Chloride Level 102, Carbon Dioxide Level 29, Anion Gap 6, Blood Urea Nitrogen 19H, Creatinine 1.08, Estimat Glomerular Filtration Rate 50, BUN/Creatinine Ratio 18, Glucose Level 100, Calcium Level 9.3, Total Bilirubin 0.6, Aspartate Amino Transf (AST/SGOT) 50H, Alanine Aminotransferase (ALT/SGPT) 59H, Alkaline Phosphatase 95, Total Protein 5.9L, Albumin 3.6 03/27/18 14:55: Urine Color YELLOW, Urine Clarity CLEAR, Urine pH 5, Urine Specific [place] 1.015L, Urine Protein 2+H, Urine Glucose (UA) NEGATIVE, Urine Ketones NEGATIVE, Urine Nitrite NEGATIVE, Urine Bilirubin NEGATIVE, Urine Urobilinogen NORMAL, Urine Leukocyte Esterase 1+H, Urine RBC (Auto) 1+H, Urine RBC RARE, Urine WBC 0- 2, Urine Squamous Epithelial Cells 5-10, Urine Renal Epithelial Cells NONE, Urine Crystals PRESENTH, Urine Uric Acid Crystals FEWH, Urine Bacteria NEGATIVE , Urine Casts NONE, Urine Mucus NEGATIVE, Urine Culture Indicated NO 03/27/18 15:05: Lactic Acid Level 1.28 Assessment/Plan Assessment/Plan Assessment/Plan Right lung cancer, right recurrent pleural effusion, shortness of breath Patient is 73-year-old female who has a large mass in her right chest. She is undergoing chemotherapy for this. She's having increased shortness of breath today. Since I last visit with her appears that the mass is larger by CAT scan. There still is a fair amount of pleural fluid present which might be contributing to her shortness of breath. I discussed with her that there is very limited space for me to try to drain this however second try to find a window that I would be willing to attempt. She was explained all risks and benefits and wishes to proceed. I also did discuss future care options and we also discussed about getting hospice on board. Patient to go for thoracentesis right chest. JEREMIAH VALVERDE DO Mar 27, 2018 16:39
--- NOTE | 2018-03-27 16:49 | Diagnostic Imaging Report ---
INDICATION: Pleural effusion. FINDINGS: Ultrasound images of the chest were performed demonstrating a large right pleural effusion. Thoracentesis was performed by Dr. Fritz, see his note for further details. IMPRESSION: Ultrasound images of the right chest demonstrate a large nonloculated right pleural effusion. Dictated by: Dictated on workstation # [id number]
--- NOTE | 2018-03-27 16:49 | Diagnostic Imaging Report ---
INDICATION: Pleural effusion, post thoracentesis. Frontal chest obtained at 04:20 p.m. and is compared to same day at 1032 a.m. Heart is mildly enlarged. There is mild central vascular congestion. Large right pleural effusion is noted. There is no pneumothorax following thoracentesis. There is no significant left-sided fluid. Port-A-Cath is unchanged. IMPRESSION: Large right pleural effusion again noted, with no pneumothorax following right thoracentesis. There is central vascular congestion noted. Dictated by: Dictated on workstation # [id number]
--- OUTSIDE RECORDS SUMMARY | 2018-03-27 17:11 | XMS REPORT | Clinical Summary ---
Author Author [facility] Organization [facility] Address Unknown Phone Unavailable Care Team Providers Care Low Pressure Boiler Tender Name Role Phone Tad Campbell MD PCP Source Comments Some departments are not documenting in the electronic medical record. 

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
--- NOTE | 2018-03-27 17:23 | Consultation ---
History of Present Illness History of Present Illness Patient Consulted On(anjel/time) 03/27/18 17:17 Date Seen by Provider: Mar 27, 2018 Time Seen by Provider: 18:00 History of Present Illness Ms. Jay is a 73 yo female, with h/o thyroid cancer and recent diagnosis of thoracic spindle cell sarcoma, who is admitted with presumed pneumonia. She has been treated with six cycles of gemcitabine and docetaxel, the last treatment being 03/14/18. Disease has been stable on this regimen. In the last month, patient has had gradual progression of shortness of breath, culminating in more rapid progression in the last 1-2 weeks. Repeat imaging has shown stability of the mass and only minimal increase pleural effusions. No PE was noted on CTA chest earlier today. Despite this, patient is fairly symptomatic. Therapeutic thoracentesis of the right pleural effusion in the ED showed some improvement but she still feels weak and short of breath. Patient CBC today was noted to have a left shifted WBC 29.6. Allergies and Home Medications Allergies Coded Allergies: amoxicillin (Unverified Allergy, Unknown, 11/28/17) clavulanic acid (Unverified Allergy, Unknown, 11/28/17) meperidine (Verified Allergy, Unknown, RECEIVED FENTANYL IN SURGERY, ) PT STATES "DEMEROL MAKES ME DIZZY AND TURNS ME ANDERSON" Uncoded Allergies: TAPE (Allergy, Unknown, 01/18/07) Home Medications Calcium Carbonate/Vitamin D3 1 Each Tablet, 1 TAB PO DAILY, (Reported) Cefdinir 300 Mg Capsule, 300 MG PO twice a day Prescribed by: ABRAHAN BERMUDEZ on 01/07/18 1344 Docusate Sodium 100 Mg Capsule, 100 MG PO DAILY PRN for CONSTIPATION-1ST LINE, ( Reported) Enalapril Maleate 10 Mg Tablet, 10 MG PO DAILY, (Reported) Furosemide 20 Mg Tablet, 10 MG PO DAILY, (Reported) TAKES 1/2 (20MG) TABLET Levothyroxine Sodium 137 Mcg Tablet, 137 MCG PO DAILY, (Reported) LAST FILLED #90 09-19-17 Loperamide HCl 2 Mg Tablet, 2 MG PO UD PRN for DIARRHEA, (Reported) Multivitamin with Minerals 1 Each Tablet, 1 TAB PO DAILY, (Reported) Ondansetron HCl 8 Mg Tablet, 8 MG PO Q8H PRN for NAUSEA/VOMITING-1ST LINE, ( Reported) Oxycodone HCl 5 Mg Tablet, 5 MG PO EVERY 4-6 HOURS PRN for PAIN-SEVERE, ( Reported) Prochlorperazine Maleate 10 Mg Tablet, 10 MG PO Q6H PRN for NAUSEA/VOMITING-4TH LINE, (Reported) Verapamil HCl 240 Mg Tablet.er, 240 MG PO DAILY, (Reported) Vitamin B Complex & Vit C No.4 150 Mg Tablet, 150 MG PO DAILY, (Reported) Patient Home Medication List Home Medication List Reviewed: Yes Past Avbqyuu-Vylqyc-Yigehq Hx Patient Social History Alcohol Use: Denies Use Recreational Drug Use: No Smoking Status: Never a Smoker 2nd Hand Smoke Exposure: No Recent Foreign Travel: No Contact w/Someone Who Travel: No Recent Infectious Disease Expo: No Recent Hopitalizations: Yes Physical Abuse: No Sexual Abuse: No Immunizations Up To Date Date of Pneumonia Vaccine: May 30, 2017 Date of Influenza Vaccine: Jun 10, 2017 Seasonal Allergies Seasonal Allergies: No Past Medical History Surgeries: Yes (R LEG VARICOSE VEIN STRIPPED, BREAST LYMPH NODE REMOVED, bladder tie up) Gallbladder, Hysterectomy, Thyroidectomy Respiratory: Yes (tb as toddler- gets cxr q 5 yrs, lung cancer, thoracentesis done 11/26) Tuberculosis Currently Using CPAP: No Currently Using BIPAP: No Cardiac: Yes Hypertension Neurological: No (had seizure during EEG test, none before or after) Reproductive Disorders: No Genitourinary: No Gastrointestinal: No Musculoskeletal: Yes Arthritis, Chronic Back Pain Endocrine: No (thyroidectomy) HEENT: No Cancer: Yes Lung What Type of Treatment Did You: Chemotherapy Psychosocial: No Nursing Suicide Risk Score: 0 Integumentary: No Blood Disorders: No Family Medical History Arthritis G8 SISTER Kidney disease G8 SISTER Neoplasm 19 FATHER (lung/colon/ liver ca) 19 MOTHER (leukemia) Cancer Review of Systems-General Constitutional: malaise, weakness EENTM: no symptoms reported Respiratory: cough, dyspnea on exertion, short of breath Cardiovascular: no symptoms reported Gastrointestinal: no symptoms reported Genitourinary: no symptoms reported Musculoskeletal: no symptoms reported Skin: no symptoms reported Psychiatric/Neurological: No Symptoms Reported Physical Exam-General Problems Physical Exam Vital Signs Vital Signs - First Documented 03/27/18 12:25 Temp 99.0 Pulse 94 Resp 26 B/P (MAP) 153/70 (97) Pulse Ox 93 O2 Delivery Nasal Cannula O2 Flow Rate 4.00 Capillary Refill : Less Than 3 Seconds General Appearance: WD/WN, no apparent distress Eyes: Bilateral Eye Normal Inspection, Bilateral Eye EOMI HEENT: normal ENT inspection Neck: full range of motion, supple, normal inspection Respiratory: chest non-tender, no respiratory distress, no accessory muscle use , decreased breath sounds, rales Cardiovascular: regular rate, rhythm, no edema, no murmur Gastrointestinal: normal bowel sounds, non tender, soft Back: normal inspection, no CVA tenderness Extremities: normal inspection Neurologic/Psychiatric: no motor/sensory deficits, alert, normal mood/affect, oriented x 3 Skin: normal color, warm/dry Assessment/Plan Assessment/Plan Admission Diagnosis/Plan 73 yo female with thoracic spindle cell sarcoma admitted with presumed RLL pneumonia due to increased shortness of breath and elevated white count. She has no imaging evidence of progressive disease, and the mild progression of pleural effusions does not seem sufficient to explain her symptoms. She had some improvement of symptoms with right sided thoracentesis, which removed about 600 ml, so perhaps the size of the mass is obscuring an accurate estimation of how much effusion there actually is. We are treating empirically with antibiotics. If there is no improvement in symptoms, we are in a difficult position because we have little other evidence of compromised pulmonary function. There is also no evidence of increased mass effect on the mediastinal/cardiac structures and no pericardial effusion. My only other thought is to evaluate pulmonary artery pressures or heart function with an echocardiogram. Thank you for allowing me to participate in the care of Ms. Jay. I will continue to monitor patient's progress while she is inpatient. Results Labs Labs Laboratory Tests 03/27/18 12:30: White Blood Count 29.6H, Red Blood Count 3.03L, Hemoglobin 9.2L, Hematocrit 29L , Mean Corpuscular Volume 97, Mean Corpuscular Hemoglobin 30, Mean Corpuscular Hemoglobin Concent 31L, Red Cell Distribution Width 21.9H, Platelet Count 128L, Mean Platelet Volume 9.9, Neutrophils (%) (Auto) 90H, Lymphocytes (%) (Auto) 7L , Monocytes (%) (Auto) 3, Eosinophils (%) (Auto) 0, Basophils (%) (Auto) 1, Neutrophils # (Auto) 26.5H, Lymphocytes # (Auto) 2.1, Monocytes # (Auto) 0.8, Eosinophils # (Auto) 0.0, Basophils # (Auto) 0.2H, Neutrophils % (Manual) 69, Lymphocytes % (Manual) 7, Monocytes % (Manual) 3, Eosinophils % (Manual) 0, Basophils % (Manual) 0, Metamyelocytes % 2, Myelocytes % 2, Band Neutrophils 15 , Reactive Lymphocytes 2, Poikilocytosis SLIGHT, Anisocytosis MODERATE, Stomatocytes SLIGHT, Elliptocytes SLIGHT, Sodium Level 137, Potassium Level 4.2 , Chloride Level 102, Carbon Dioxide Level 29, Anion Gap 6, Blood Urea Nitrogen 19H, Creatinine 1.08, Estimat Glomerular Filtration Rate 50, BUN/Creatinine Ratio 18, Glucose Level 100, Calcium Level 9.3, Total Bilirubin 0.6, Aspartate Amino Transf (AST/SGOT) 50H, Alanine Aminotransferase (ALT/SGPT) 59H, Alkaline Phosphatase 95, Total Protein 5.9L, Albumin 3.6 03/27/18 14:55: Urine Color YELLOW, Urine Clarity CLEAR, Urine pH 5, Urine Specific [place] 1.015L, Urine Protein 2+H, Urine Glucose (UA) NEGATIVE, Urine Ketones NEGATIVE, Urine Nitrite NEGATIVE, Urine Bilirubin NEGATIVE, Urine Urobilinogen NORMAL, Urine Leukocyte Esterase 1+H, Urine RBC (Auto) 1+H, Urine RBC RARE, Urine WBC 0- 2, Urine Squamous Epithelial Cells 5-10, Urine Renal Epithelial Cells NONE, Urine Crystals PRESENTH, Urine Uric Acid Crystals FEWH, Urine Bacteria NEGATIVE , Urine Casts NONE, Urine Mucus NEGATIVE, Urine Culture Indicated NO 03/27/18 15:05: Lactic Acid Level 1.28 AUSTIN ELON MD Mar 27, 2018 17:23
[2018-03-27] MEDS ORDERED: fentaNYL INJECTION 100 MCG/2 ML AMP ONE (17:39)
[2018-03-27 17:45] VITALS: BP 125/59
[2018-03-27 19:09] VITALS: BP 125/59
[2018-03-27] MEDS ORDERED: ONDANSETRON 4 MG/2 ML (SDV) Z0FRAN IV PRN (19:30)
[2018-03-27] MEDS ORDERED: fentaNYL INJECTION 100 MCG/2 ML AMP IV PRN (19:30)
[2018-03-27 19:33] VITALS: BP 117/56
[2018-03-27] MEDS: NS IV 1000 ML 1,000 ML IV SCH (20:42)
[2018-03-27] MEDS: VANCOMYCIN 1 GM/NS 250 ML IVPB IV SCH ×2 (20:42)
[2018-03-27] MEDS ORDERED: RT-ALBUTEROL/IPRATROPIUM 3 ML (DUONEB) VIAL ONE (21:10)
[2018-03-27] MEDS ORDERED: RT-ALBUTEROL/IPRATROPIUM 3 ML (DUONEB) VIAL INH PRN (21:30)
--- NOTE | 2018-03-27 21:31 | History & Physical-Hospitalist ---
History of Present Illness HPI/Chief Complaint 73 yo wf well known to me with hx thyroid cA and recent spindle cell sarcoma of right lung, Now with increased weakness and SOA and perhaps increased right pleural effusion. At my interview pt is s/p thoracentesis with 600 cc fluid removed. no real improvement in symptoms. Source: patient Exam Limitations: clinical condition Date Seen 03/27/18 Time Seen by Provider: 18:00 Attending Physician Isabella Gage MD PCP Tad Campbell MD Referring Physician Date of Admission Mar 27, 2018 at 16:59 Home Medications & Allergies Home Medications Reviewed patient Home Medication Reconciliation performed by pharmacy medication reconciliations bicycle repair technician and/or nursing. Patients Allergies have been reviewed. Allergies Allergies Coded Allergies amoxicillin (Unverified Allergy, Unknown, 11/28/17) clavulanic acid (Unverified Allergy, Unknown, 11/28/17) meperidine (Verified Allergy, Unknown, RECEIVED FENTANYL IN SURGERY, 02/09/16) PT STATES "DEMEROL MAKES ME DIZZY AND TURNS ME ANDERSON" Uncoded Allergies TAPE ( Allergy, Unknown, 01/18/07) Past Sqofcmw-Kppnxr-Jgmlrd Hx Past Med/Social Hx: Reviewed Nursing Past Med/Soc Hx Patient Social History Marrital Status: single Employed/Student: unemployed Alcohol Use: Denies Use Recreational Drug Use: No Smoking Status: Never a Smoker 2nd Hand Smoke Exposure: No Physical Abuse Screen: No Sexual Abuse: No Recent Foreign Travel: No Contact w/other who traveled: No Recent Hopitalizations: Yes Recent Infectious Disease Expo: No Immunizations Up To Date Date of Pneumonia Vaccine: May 30, 2017 Date of Influenza Vaccine: Jun 10, 2017 Seasonal Allergies Seasonal Allergies: No Past Medical History Surgeries: Gallbladder, Hysterectomy, Thyroidectomy Respiratory: Tuberculosis Currently Using CPAP: No Currently Using BIPAP: No Cardiac: Hypertension Reproductive: No Musculoskeletal: Arthritis, Chronic Back Pain Cancer: Lung What Type of Treatment Did You: Chemotherapy History of Blood Disorders: No Family History Arthritis G8 SISTER Kidney disease G8 SISTER Neoplasm 19 FATHER (lung/colon/ liver ca) 19 MOTHER (leukemia) Cancer Review of Systems Constitutional: malaise, weakness EENTM: no symptoms reported Respiratory: dyspnea on exertion, short of breath Cardiovascular: chest pain Gastrointestinal: no symptoms reported Genitourinary: no symptoms reported Musculoskeletal: back pain Skin: no symptoms reported Psychiatric/Neurological: No Symptoms Reported Physical Exam Physical Exam Vital Signs Vital Signs - First Documented 03/27/18 12:25 Temp 99.0 Pulse 94 Resp 26 B/P (MAP) 153/70 (97) Pulse Ox 93 O2 Delivery Nasal Cannula O2 Flow Rate 4.00 Capillary Refill : Less Than 3 Seconds Height, Weight, BMI Height: 5'1.00" Weight: 170lbs. 0.0oz. 77.801096lr; 32.1 BMI Method:Stated General Appearance: Chronically ill HEENT: Other (alopecia) Neck: Limited Range of Motion Respiratory: Decreased Breath Sounds (right) Cardiovascular: Regular Rate, Rhythm, No Gallop, No Murmur Gastrointestinal: Normal Bowel Sounds, Non Tender, Soft Rectal: Deferred Back: Normal Inspection, No CVA Tenderness, No Vertebral Tenderness Extremity: Normal Capillary Refill, Normal Inspection, Normal Range of Motion, Non Tender, No Calf Tenderness Neurologic/Psychiatric: Alert, Oriented x3, No Motor/Sensory Deficits, Normal Mood/Affect Skin: Warm/Dry, Pallor Lymphatic: No Adenopathy Results Results/Procedures Labs Laboratory Tests 03/28/18 05:25 03/29/18 07:48 Patient resulted labs reviewed. Imaging: Reviewed Imaging Report Assessment/Plan Admission Diagnosis loculated pleural effusion elevated wbc/leukocytosis thrombocytopenia anemia- chronic dz spindle cell sarcoma lung-on chemo anemia hypoxia weakness plan for possible repeat thoracentesis , palliative care evaluation, antibiotics in immunocompronised pt poor prognosis Admission Status: Observation Clinical Quality Measures DVT/VTE Risk/Contraindication: Risk Factor Score Per Nursin RFS Level Per Nursing on Admit: 4+=Very High ISABELLA GAGE MD Mar 27, 2018 21:31
--- NOTE | 2018-03-27 22:49 | OPERATIVE REPORT ---
DATE OF SERVICE: 03/27/2018 PREOPERATIVE DIAGNOSES: Recurrent right pleural effusion, right lung cancer/mass, shortness of breath. POSTOPERATIVE DIAGNOSES: Recurrent right pleural effusion, right lung cancer/mass, shortness of breath. PROCEDURE: Right ultrasound-guided thoracentesis. SURGEON: Jeremiah Fritz DO ANESTHESIA: 1% lidocaine 3 mL. COMPLICATIONS: None. INDICATIONS: The patient is a 73-year-old female with recurrent right pleural effusion. She is having increasing shortness of breath and has known right lung mass/cancer. She was explained risks and benefits of procedure and wished to proceed with procedure. Consent was signed in the chart. PROCEDURE: The patient was taken to the procedure room. Ultrasound was used to find the best pocket for drainage. This was then marked. The area was then prepped and draped in a sterile fashion. Timeout was performed. Local anesthetic was used to infiltrate into the area. An 11 blade scalpel was used to make a small skin incision. The safety thoracentesis needle and catheter were then advanced through the incision until pleural fluid was returned. The catheter was then advanced over the needle and the needle was removed. A total of 600 mL of straw slightly blood-tinged fluid was withdrawn and the patient began breathing easier. The catheter was then removed and sterile bandage was applied. The patient tolerated the procedure well without any complications. She was handed back to the Emergency Department in stable condition. Chest x-ray pending. Job ID: [id number] DocumentID: [id number] Dictated Date: 03/27/2018 16:49:39 Piece Meat Trimmer Date: 03/27/2018 22:48:53 Dictated By: JEREMIAH FRITZ DO
[2018-03-28] VITALS: BP 109/52
[2018-03-28] MEDS: RT-ALBUTEROL/IPRATROPIUM 3 ML (DUONEB) VIAL INH SCH ×4 (01:15→19:13)
[2018-03-28 04:00] VITALS: BP 122/57
[2018-03-28] MEDS ORDERED: CEFEPIME 2 GM/NS 50 ML IVPB IV SCH ×2 (05:00)
[2018-03-28 05:52] LABS: BASOPHILS # (AUTO) 0.2 10^3/uL (0.0-0.1); BASOPHILS % (AUTO) 1 % (0-10); EOSINOPHILS % (AUTO) 0 % (0-10); HEMATOCRIT 26 % (35-52); HEMOGLOBIN 8.2 G/DL (11.5-16.0); LYMPHOCYTES # (AUTO) 2.6 X 10^3 (1.0-4.0); LYMPHOCYTES % (AUTO) 8 % (12-44); MEAN CORPUSCULAR HEMOGLOBIN 30 PG (25-34); MEAN CORPUSCULAR HGB CONC 31 G/DL (32-36); MEAN CORPUSCULAR VOLUME 96 FL (80-99); MEAN PLATELET VOLUME 9.4 FL (7.4-10.4); MONOCYTES # (AUTO) 1.6 X 10^3 (0.0-1.0); MONOCYTES % (AUTO) 5 % (0-12); NEUTROPHILS # (AUTO) 29.8 X 10^3 (1.8-7.8); NEUTROPHILS % (AUTO) 87 % (42-75); PLATELET COUNT 106 10^3/uL (130-400); RED BLOOD COUNT 2.71 10^6/uL (4.35-5.85); RED CELL DISTRIBUTION WIDTH 21.9 % (10.0-14.5)
[2018-03-28 06:02] LABS: WHITE BLOOD COUNT 34.1 10^3/uL (4.3-11.0)
[2018-03-28 06:27] LABS: ALBUMIN 3.1 GM/DL (3.2-4.5); BILIRUBIN,TOTAL 0.4 MG/DL (0.1-1.0); CALCIUM 8.8 MG/DL (8.5-10.1); CREATININE SERUM 1.01 MG/DL (0.60-1.30); POTASSIUM 4.5 MMOL/L (3.6-5.0)
[2018-03-28 08:00] VITALS: BP 108/66
[2018-03-28] MEDS: CHOLESTYRAMINE 4 GM (QUESTRAN LITE, PREVALITE) PKT PO SCH (10:30)
[2018-03-28 12:00] VITALS: BP 130/65
[2018-03-28] MEDS ORDERED: PROCHLORPERAZINE 10 MG TAB (COMPAZINE) PO PRN (13:45)
[2018-03-28] MEDS ORDERED: FUROSEMIDE 40 MG/4 ML INJ (LASIX) IVP NR (13:47)
--- NOTE | 2018-03-28 13:51 | Progress Note-Hospitalist ---
Subjective HPI/CC On Admission Date Seen by Provider: Mar 28, 2018 Time Seen by Provider: 13:00 73 yo wf well known to me with hx thyroid cA and recent spindle cell sarcoma of right lung, Now with increased weakness and SOA and perhaps increased right pleural effusion. At my interview pt is s/p thoracentesis with 600 cc fluid removed. no real improvement in symptoms. Subjective/Events-last exam Patient still feels miserable without any energy she has some shortness of breath increased lethargy having the thoracentesis has not helped at all. She' s had diarrhea that stopped with Questran. I discussed with Dr. Quintero who thinks that we should look at different etiologies for her shortness of breath and failure to thrive. We'll obtain an echocardiogram and Pulmonary consultation for further evaluation. She is pretty depressed Review of Systems Pulmonary: Dyspnea Gastrointestinal: Nausea, Diarrhea Neurological: Weakness Focused Exam Lactate Level 03/27/18 15:05: Lactic Acid Level 1.28 Objective Exam Vital Signs Vital Signs Date Time Temp Pulse Resp B/P (MAP) Pulse Ox O2 Delivery O2 Flow Rate FiO2 03/28/18 12:00 98.6 104 22 130/65 (86) 92 Nasal Cannula 4.00 Capillary Refill : Less Than 3 Seconds General Appearance: Chronically ill HEENT: Other (Chemotherapy alopecia) Neck: Limited Range of Motion Respiratory: Lungs Clear, Decreased Breath Sounds (Right side) Cardiovascular: Regular Rate, Rhythm, No Gallop, No Murmur Gastrointestinal: Non Tender, Soft Extremity: Pedal Edema Neurologic/Psychiatric: Alert, Depressed Affect Skin: Pallor Results/Procedures Lab Laboratory Tests 03/28/18 05:25 Patient resulted labs reviewed. Imaging: Reviewed Imaging Report Assessment/Plan Assessment and Plan Assess & Plan/Chief Complaint loculated pleural effusion-cultures pending elevated wbc/leukocytosis-C. difficile pending no etiology for infection thrombocytopenia anemia- chronic dz spindle cell sarcoma lung-on chemo-questionable progression of disease hypoxia weakness Pedal edema increased shortness of breath we'll check an echocardiogram consult pulmonology check a BnP and give Lasix Overall prognosis appears to be poor Clinical Quality Measures DVT/VTE Risk/Contraindication: Risk Factor Score Per Nursin RFS Level Per Nursing on Admit: 4+=Very High ALEENA GAGE MD Mar 28, 2018 13:51
[2018-03-28] MEDS ORDERED: ONDANSETRON 8 MG (ZOFRAN) ORAL DISSOLVE TAB PO PRN (14:00)
[2018-03-28] MEDS ORDERED: LOPERAMIDE 2 MG (IMODIUM) CAP PO PRN (14:00)
[2018-03-28] MEDS: ENALAPRIL 10 MG (VASOTEC) TAB PO SCH (14:19)
[2018-03-28 16:00] VITALS: BP 126/65
--- NOTE | 2018-03-28 16:01 | Pulmonary Consultation ---
History of Present Illness History of Present Illness Date of Consultation 03/28/18 15:56 Time Seen by Provider: 13:07 Date of Admission History of Present Illness 73yo with hx of thyroid cancer and recent diagnosis of spindle cell sarcoma of the right lung presents secondary to worsening SOB. She was found to have increased right pleural effusion and is s/p thoracentesis of 600cc of fluid. I am consulted for pulmonary management. Allergies and Home Medications Allergies Coded Allergies: amoxicillin (Unverified Allergy, Unknown, 11/28/17) clavulanic acid (Unverified Allergy, Unknown, 11/28/17) meperidine (Verified Allergy, Unknown, RECEIVED FENTANYL IN SURGERY, ) PT STATES "DEMEROL MAKES ME DIZZY AND TURNS ME ANDERSON" Uncoded Allergies: TAPE (Allergy, Unknown, 01/18/07) Home Medications Calcium Carbonate/Vitamin D3 1 Each Tablet, 1 TAB PO DAILY, (Reported) Docusate Sodium 100 Mg Capsule, 100 MG PO DAILY PRN for CONSTIPATION-1ST LINE, ( Reported) Enalapril Maleate 10 Mg Tablet, 10 MG PO DAILY, (Reported) Furosemide 20 Mg Tablet, 20 MG PO DAILY, (Reported) Levothyroxine Sodium 137 Mcg Tablet, 137 MCG PO DAILY, (Reported) Loperamide HCl 2 Mg Tablet, 2 MG PO UD PRN for DIARRHEA, (Reported) Multivitamin with Minerals 1 Each Tablet, 1 TAB PO DAILY, (Reported) Ondansetron HCl 8 Mg Tablet, 8 MG PO Q8H PRN for NAUSEA/VOMITING-1ST LINE, ( Reported) Oxycodone HCl 5 Mg Tablet, 5 MG PO EVERY 4-6 HOURS PRN for PAIN-SEVERE, ( Reported) Prednisone 20 Mg Tab, 40 MG PO DAILY@0700 Prescribed by: ALEENA GAGE on 03/29/18 1340 Prochlorperazine Maleate 10 Mg Tablet, 10 MG PO Q6H PRN for NAUSEA/VOMITING-4TH LINE, (Reported) Vancomycin HCl 125 Mg/2.5 Ml Syringe, 125 MG PO QID Prescribed by: ALEENA GAGE on 03/29/18 1340 Verapamil HCl 240 Mg Tablet.er, 240 MG PO DAILY, (Reported) Vitamin B Complex & Vit C No.4 150 Mg Tablet, 150 MG PO DAILY, (Reported) Past Djkyrwg-Xlyszd-Yjjwxt Hx Past Med/Social Hx: Reviewed Nursing Past Med/Soc Hx Patient Social History Alcohol Use: Denies Use Recreational Drug Use: No Smoking Status: Never a Smoker 2nd Hand Smoke Exposure: No Recent Foreign Travel: No Contact w/Someone Who Travel: No Recent Infectious Disease Expo: No Recent Hopitalizations: Yes Physical Abuse: No Sexual Abuse: No Immunizations Up To Date Date of Pneumonia Vaccine: May 30, 2017 Date of Influenza Vaccine: Jun 10, 2017 Seasonal Allergies Seasonal Allergies: No Past Medical History Surgeries: Yes (R LEG VARICOSE VEIN STRIPPED, BREAST LYMPH NODE REMOVED, bladder tie up) Gallbladder, Hysterectomy, Thyroidectomy Respiratory: Yes (tb as toddler- gets cxr q 5 yrs, lung cancer, thoracentesis done 11/26) Tuberculosis Currently Using CPAP: No Currently Using BIPAP: No Cardiac: Yes Hypertension Neurological: No (had seizure during EEG test, none before or after) Reproductive Disorders: No Genitourinary: No Gastrointestinal: No Musculoskeletal: Yes Arthritis, Chronic Back Pain Endocrine: No (thyroidectomy) HEENT: No Cancer: Yes Lung What Type of Treatment Did You: Chemotherapy Psychosocial: No Nursing Suicide Risk Score: 0 Integumentary: No Blood Disorders: No Family Medical History Arthritis G8 SISTER Kidney disease G8 SISTER Neoplasm 19 FATHER (lung/colon/ liver ca) 19 MOTHER (leukemia) Cancer Review of Systems Time Seen by Provider: 13:10 Constitutional: Sweats, Weakness, Malaise ENT: Nose discharge, Nose congestion Respiratory: Cough, Shortness of breath, Wheezing Cardiovascular: Paroxysmal Noc. Dyspnea; No: Chest Pain, Palpitations Neurological: Weakness, Confusion Sepsis Event Evaluation Height, Weight, BMI Height: 5'1.00" Weight: 170lbs. 0.0oz. 77.121422qa; 32.1 BMI Method:Stated Exam Exam Vital Signs Date Time Temp Pulse Resp B/P (MAP) Pulse Ox O2 Delivery O2 Flow Rate FiO2 03/28/18 12:00 98.6 104 22 130/65 (86) 92 Nasal Cannula 4.00 03/28/18 09:43 95 NIV CPAP 4.00 03/28/18 08:00 95 NIV CPAP 4.00 03/28/18 08:00 98.4 96 22 108/66 (80) 94 Nasal Cannula 4.00 03/28/18 04:00 98.8 89 22 122/57 (78) 93 Nasal Cannula 4.00 03/28/18 01:16 95 NIV CPAP 4.00 03/28/18 00:00 99.4 94 19 109/52 (71) 95 NIV CPAP 4.00 03/27/18 21:30 94 4.00 03/27/18 20:15 95 NIV CPAP 4.00 03/27/18 19:33 98.8 90 20 117/56 (76) 95 NIV CPAP 03/27/18 19:09 73 93 03/27/18 18:56 93 4.00 03/27/18 17:45 99.1 100 24 125/59 (81) 92 Nasal Cannula 4.00 03/27/18 17:40 99.0 91 17 115/69 98 Room Air I & O 03/28/18 07:00 Intake Total 690 ml Output Total 400 ml Balance 290 ml Height & Weight Height: 5'1.00" Weight: 170lbs. 0.0oz. 77.068308cf; 32.1 BMI Method:Stated General Appearance: Chronically ill HEENT: Other (Chemotherapy alopecia) Neck: Limited Range of Motion Respiratory: Lungs Clear, Decreased Breath Sounds (Right side) Cardiovascular: Regular Rate, Rhythm, No Gallop, No Murmur Capillary Refill: Less Than 3 Seconds Gastrointestinal: normal bowel sounds, non tender, soft Extremity: Pedal Edema Neurologic/Psychiatric: Alert, Depressed Affect Skin: Pallor Lymphatic: No Adenopathy Results Lab Laboratory Tests 03/27/18 12:30 03/28/18 05:25 Assessment/Plan Assessment/Plan RLL large mass from spindle cell sarcoma causing compression atelectasis and SOB worsening SOB with hypoxia - multifactorial from large mass occupying most of her right lung, deconditioning, pneumonia, and pleural effusion -Continue conservative treatment -PT is requiring 4liters of oxygen which is what she requires at home -SVNs -Will start Solumedrol to see if it helps -Check ABG -I doubt bronchoscopy will be beneficial at this time. Pleural effusion s/p thoracentesis Pneumonia -Continue abx all radiology and labs reviewed. Discussed with hospitalist and nursing staff. FELICIANO CAMPBELL DO Mar 28, 2018 16:01
--- NOTE | 2018-03-28 17:50 | Oncology Progress Note ---
Subjective Date Seen by Provider: Mar 28, 2018 Time Seen by Provider: 12:45 Subjective/Events-last exam Patient reports minimally improved breathing at rest but still becomes significantly winded and weak from just walking across the hospital room. She developed watery diarrhea last night and this morning. It has improved after some medication. She also reports increased leg swelling since yesterday but does not recall taking her usual lasix yesterday. Otherwise she reports no new symptoms. Review of Systems General: Fatigue, Malaise HEENT: No Head Aches, No Eye Pain, No Ear Pain, No Dysphasia, No Sinus Congestion, No Post Nasal Drip, No Sore Throat Cardiovascular: Edema; No: Chest Pain, Orthopnea Gastrointestinal: Diarrhea; No: Nausea, Vomiting, Abdominal Pain Musculoskeletal: No: other, neck pain, shoulder pain, arm pain, back pain, hand pain, leg pain, foot pain Neurological: Weakness Data Review Labs Laboratory Tests 03/28/18 05:25 Laboratory Tests 03/27/18 12:30: White Blood Count 29.6H, Red Blood Count 3.03L, Hemoglobin 9.2L, Hematocrit 29L , Mean Corpuscular Hemoglobin Concent 31L, Red Cell Distribution Width 21.9H, Platelet Count 128L, Neutrophils (%) (Auto) 90H, Lymphocytes (%) (Auto) 7L, Neutrophils # (Auto) 26.5H, Basophils # (Auto) 0.2H, Blood Urea Nitrogen 19H, Aspartate Amino Transf (AST/SGOT) 50H, Alanine Aminotransferase (ALT/SGPT) 59H, Total Protein 5.9L 03/27/18 14:55: Urine Specific [place] 1.015L, Urine Protein 2+H, Urine Leukocyte Esterase 1+H, Urine RBC (Auto) 1+H, Urine Crystals PRESENTH, Urine Uric Acid Crystals FEWH 03/27/18 15:05: 03/28/18 05:25: White Blood Count 34.1*H, Red Blood Count 2.71L, Hemoglobin 8.2L, Hematocrit 26L , Mean Corpuscular Hemoglobin Concent 31L, Red Cell Distribution Width 21.9H, Platelet Count 106L, Neutrophils (%) (Auto) 87H, Lymphocytes (%) (Auto) 8L, Neutrophils # (Auto) 29.8H, Basophils # (Auto) 0.2H, Aspartate Amino Transf (AST /SGOT) 37H, Total Protein 5.0L, Monocytes # (Auto) 1.6H, Albumin 3.1L 03/28/18 14:10: Physical Exam Vital Signs Vital Signs - First Documented 03/27/18 12:25 Temp 99.0 Pulse 94 Resp 26 B/P (MAP) 153/70 (97) Pulse Ox 93 O2 Delivery Nasal Cannula O2 Flow Rate 4.00 Capillary Refill : Less Than 3 Seconds Height, Weight, BMI Height: 5'1.00" Weight: 170lbs. 0.0oz. [id number]; 32.1 BMI Method:Stated General Appearance: No Apparent Distress, WD/WN Eyes: Bilateral Eye Normal Inspection HEENT: Normal ENT Inspection, Pharynx Normal Neck: Normal Inspection Respiratory: Chest Non Tender, No Accessory Muscle Use, No Respiratory Distress , Crackles, Decreased Breath Sounds Cardiovascular: Regular Rate, Rhythm Gastrointestinal: Normal Bowel Sounds, Non Tender, Soft Back: Normal Inspection Extremity: Pedal Edema, Swelling Neurologic/Psychiatric: Alert, Oriented x3, No Motor/Sensory Deficits, Normal Mood/Affect Skin: Normal Color, Warm/Dry Focused Exam Lactate Level 03/27/18 15:05: Lactic Acid Level 1.28 Impression & Plan Impression & Plan 73 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 - Patient has seen little improvement since yesterday while on antibiotics and after thoracentesis. - There is no increased mass effect on imaging and no PE detected. - BNP and chest imaging are not consistent with fluid overload/pulmonary edema. - Although patient's white count is elevated, she did receive extended duration G-CSF with her chemotherapy about a week ago, so it would not be unusual for her white count to be elevated in this time frame. She does not have many factors consistent with a severe pneumonia. - I do not think there is enough evidence consistent with progression of malignancy. - Pulmonology is currently evaluating patient for obstructive lung disease/ reactive airways, which is very much appreciated in this complicated case. Thank you for allowing me to participate in the care of Ms. Jay. I will continue to monitor patient's progress while she is inpatient. Clinical Quality Measures DVT/VTE Risk/Contraindication: Risk Factor Score Per Nursin RFS Level Per Nursing on Admit: 4+=Very High AUSTIN LEON MD Mar 28, 2018 17:50
[2018-03-28] MEDS: VANCOMYCIN 1 GM/NS 250 ML IVPB IV SCH ×2 (18:07)
--- NOTE | 2018-03-28 18:21 | Progress Note ---
Subjective Date Seen by Provider: Mar 28, 2018 Time Seen by Provider: 09:40 Subjective/Events-last exam Patient in restroom. Feeling about the same as yesterday. Maybe a little easier breathing but still with shortness of breath. Diarrhea. No new complaints. Focused Exam Lactate Level 03/27/18 15:05: Lactic Acid Level 1.28 Objective Exam Vital Signs Date Time Temp Pulse Resp B/P (MAP) Pulse Ox O2 Delivery O2 Flow Rate FiO2 03/28/18 16:00 100.2 103 22 126/65 (85) 94 Nasal Cannula 4.00 03/28/18 15:33 95 NIV CPAP 4.00 03/28/18 12:00 98.6 104 22 130/65 (86) 92 Nasal Cannula 4.00 03/28/18 09:43 95 NIV CPAP 4.00 03/28/18 08:00 95 NIV CPAP 4.00 03/28/18 08:00 98.4 96 22 108/66 (80) 94 Nasal Cannula 4.00 03/28/18 04:00 98.8 89 22 122/57 (78) 93 Nasal Cannula 4.00 03/28/18 01:16 95 NIV CPAP 4.00 03/28/18 00:00 99.4 94 19 109/52 (71) 95 NIV CPAP 4.00 03/27/18 21:30 94 4.00 03/27/18 20:15 95 NIV CPAP 4.00 03/27/18 19:33 98.8 90 20 117/56 (76) 95 NIV CPAP 03/27/18 19:09 73 93 03/27/18 18:56 93 4.00 I & O 03/28/18 07:00 Intake Total 690 ml Output Total 400 ml Balance 290 ml Capillary Refill : Less Than 3 Seconds General Appearance: Other (in restroom) Results Lab Laboratory Tests 03/28/18 05:25: White Blood Count 34.1*H, Red Blood Count 2.71L, Hemoglobin 8.2L, Hematocrit 26L , Mean Corpuscular Volume 96, Mean Corpuscular Hemoglobin 30, Mean Corpuscular Hemoglobin Concent 31L, Red Cell Distribution Width 21.9H, Platelet Count 106L, Mean Platelet Volume 9.4, Neutrophils (%) (Auto) 87H, Lymphocytes (%) (Auto) 8L , Monocytes (%) (Auto) 5, Eosinophils (%) (Auto) 0, Basophils (%) (Auto) 1, Neutrophils # (Auto) 29.8H, Lymphocytes # (Auto) 2.6, Monocytes # (Auto) 1.6H, Eosinophils # (Auto) 0.0, Basophils # (Auto) 0.2H, Sodium Level 141, Potassium Level 4.5, Chloride Level 107, Carbon Dioxide Level 27, Anion Gap 7, Blood Urea Nitrogen 17, Creatinine 1.01, Estimat Glomerular Filtration Rate 54, BUN/ Creatinine Ratio 17, Glucose Level 99, Calcium Level 8.8, Total Bilirubin 0.4, Aspartate Amino Transf (AST/SGOT) 37H, Alanine Aminotransferase (ALT/SGPT) 43, Alkaline Phosphatase 100, Total Protein 5.0L, Albumin 3.1L, Smear Scan 03/28/18 14:10: B-Type Natriuretic Peptide 46.4 Microbiology 03/27/18 Blood Culture - Preliminary, Resulted No growth Assessment/Plan Assessment/Plan Assessment/Plan recurrent right pleural effusion s/p thoracentesis right lung cancer patient s/p thoracentesis. most of her discomfort and breathing issues i fee is likely to mass No surgical intervention will follow, call if needed. Clinical Quality Measures DVT/VTE Risk/Contraindication: Risk Factor Score Per Nursin RFS Level Per Nursing on Admit: 4+=Very High JEREMIAH VALVERDE DO Mar 28, 2018 18:21
[2018-03-28 19:26] LABS: ABG BASE EXCESS 2.3 MMOL/L (-2.5-2.5); ABG OXYGEN SATURATION 101 % (94-100); ABG PCO2 44 MMHG (35-45); ABG PO2 256 MMHG (79-93); ABG TCO2 28.1 MMOL/L (21.0-31.0)
[2018-03-28] MEDS: NS IV 1000 ML 1,000 ML IV SCH (19:30)
[2018-03-28 19:31] LABS: ALLENS TEST YES-POS
[2018-03-28 19:32] LABS: INSPIRED O2 4L; PATIENT TEMP 98.6; VENTILATOR NO
[2018-03-28 20:00] VITALS: BP 136/66
[2018-03-29 00:22] VITALS: BP 130/68
[2018-03-29] MEDS: RT-ALBUTEROL/IPRATROPIUM 3 ML (DUONEB) VIAL INH SCH ×2 (02:11→08:34)
[2018-03-29 04:05] VITALS: BP 122/56
[2018-03-29] MEDS: NS IV 1000 ML 1,000 ML IV SCH (05:40)
--- NOTE | 2018-03-29 05:48 | Pulmonary Progress Note ---
Subjective Time Seen by Provider: 05:56 Subjective/Events-last exam c/o SOB no productive cough Sepsis Event Evaluation Height, Weight, BMI Height: 5'1.00" Weight: 170lbs. 0.0oz. 77.964604tx; 32.1 BMI Method:Stated Focused Exam Lactate Level 03/27/18 15:05: Lactic Acid Level 1.28 Exam Exam Vital Signs Date Time Temp Pulse Resp B/P (MAP) Pulse Ox O2 Delivery O2 Flow Rate FiO2 03/29/18 04:05 98.7 97 18 122/56 (78) 93 Nasal Cannula 4.00 03/29/18 02:49 95 NIV CPAP 4.00 03/29/18 00:22 99.0 110 21 130/68 (88) 95 Nasal Cannula 4.00 03/28/18 21:00 94 Nasal Cannula 4.00 03/28/18 20:00 98.8 104 16 136/66 (89) 94 Nasal Cannula 4.00 03/28/18 19:13 95 NIV CPAP 4.00 03/28/18 16:00 100.2 103 22 126/65 (85) 94 Nasal Cannula 4.00 03/28/18 15:33 95 NIV CPAP 4.00 03/28/18 12:00 98.6 104 22 130/65 (86) 92 Nasal Cannula 4.00 03/28/18 09:43 95 NIV CPAP 4.00 03/28/18 08:00 95 NIV CPAP 4.00 03/28/18 08:00 98.4 96 22 108/66 (80) 94 Nasal Cannula 4.00 I & O 03/29/18 07:00 Intake Total 600 ml Output Total 1400 ml Balance -800 ml Height & Weight Height: 5'1.00" Weight: 170lbs. 0.0oz. 77.158547pv; 32.1 BMI Method:Stated General Appearance: Anxious, Mild Distress, Other (in restroom) HEENT: PERRL/EOMI, Normal ENT Inspection, Pharynx Normal Neck: Full Range of Motion, Normal Inspection, Non Tender, Supple Respiratory: Accessory Muscle Use, Crackles, Decreased Breath Sounds Capillary Refill: Less Than 3 Seconds Gastrointestinal: normal bowel sounds, non tender, soft, no organomegaly Extremity: Normal Capillary Refill, Normal Inspection, Normal Range of Motion Neurologic/Psychiatric: Alert Skin: Normal Color, Warm/Dry Lymphatic: No Adenopathy Results Lab Laboratory Tests 03/27/18 12:30 03/28/18 05:25 Assessment/Plan Assessment/Plan RLL large mass from spindle cell sarcoma causing compression atelectasis and SOB worsening SOB with hypoxia - multifactorial from large mass occupying most of her right lung, deconditioning, possible pneumonia, and pleural effusion -PT is only requiring 4 liters of oxygen which is not surprising considering the size of her pulmonary mass and the amount of atelectasis -SHe was already on home oxygen at 4 liters -Will start Morphine for air hunger -Consider hospice consult - prednisone started -SVNs - ABG -- shows high oxygen otherwise looks good -No bronchoscopy is needed at this time. Pleural effusion s/p thoracentesis -Most likely will return secondary to atelectasis from large pulmonary mass. -Will repeat 2 view CXR Possible Pneumonia - -D/C vanco -Continue Cefepime for now -Repeat PA/Lat CXR FELICIANO CAMPBELL DO Mar 29, 2018 05:48
[2018-03-29] MEDS ORDERED: morphine INJ 4 MG/ML 1 ML (VIAL/SYRINGE) IVP PRN (06:00)
[2018-03-29] MEDS ORDERED: CEFEPIME 2 GM/NS 50 ML IVPB IV SCH ×2 (06:00)
[2018-03-29] MEDS ORDERED: LEVOTHYROXINE 25 MCG (LEVOTHROID) TAB PO SCH (06:30)
[2018-03-29] MEDS ORDERED: LEVOTHYROXINE 112 MCG (LEVOTHROID) TAB PO SCH (06:30)
[2018-03-29] MEDS ORDERED: predniSONE 20 MG TAB PO SCH (07:00)
[2018-03-29 08:00] VITALS: BP 130/72
[2018-03-29 08:08] LABS: BASOPHILS # (AUTO) 0.5 10^3/uL (0.0-0.1); BASOPHILS % (AUTO) 1 % (0-10); EOSINOPHILS # (AUTO) 0.2 10^3/uL (0.0-0.3); EOSINOPHILS % (AUTO) 0 % (0-10); HEMATOCRIT 28 % (35-52); LYMPHOCYTES # (AUTO) 3.5 X 10^3 (1.0-4.0); LYMPHOCYTES % (AUTO) 6 % (12-44); MEAN CORPUSCULAR HEMOGLOBIN 31 PG (25-34); MEAN CORPUSCULAR HGB CONC 32 G/DL (32-36); MEAN CORPUSCULAR VOLUME 96 FL (80-99); MEAN PLATELET VOLUME 9.5 FL (7.4-10.4); MONOCYTES % (AUTO) 4 % (0-12); NEUTROPHILS # (AUTO) 51.6 X 10^3 (1.8-7.8); NEUTROPHILS % (AUTO) 89 % (42-75); PLATELET COUNT 122 10^3/uL (130-400); RED BLOOD COUNT 2.94 10^6/uL (4.35-5.85)
[2018-03-29 08:18] LABS: WHITE BLOOD COUNT 57.8 10^3/uL (4.3-11.0)
[2018-03-29 08:26] LABS: ALBUMIN 3.5 GM/DL (3.2-4.5); BILIRUBIN,TOTAL 0.6 MG/DL (0.1-1.0); CALCIUM 8.9 MG/DL (8.5-10.1); CREATININE SERUM 1.15 MG/DL (0.60-1.30); POTASSIUM 3.7 MMOL/L (3.6-5.0); TOTAL PROTEIN 5.7 GM/DL (6.4-8.2)
[2018-03-29] MEDS: ENALAPRIL 10 MG (VASOTEC) TAB PO SCH (08:38)
[2018-03-29 08:47] LABS: BAND NEUTROPHILS 11 %; EOSINOPHILS % (MANUAL) 0 %; LYMPHOCYTES % (MANUAL) 7 %; MONOCYTES % (MANUAL) 12 %; NEUTROPHILS % (MANUAL) 68 %
[2018-03-29 08:48] LABS: ANISOCYTOSIS SLIGHT; BASOPHILS % (MANUAL) 0 %; MYELOCYTES % 2 %; POLYCHROMASIA SLIGHT
[2018-03-29] MEDS ORDERED: VERAPAMIL SR 240 MG (CALAN SR) TAB PO SCH (09:00)
[2018-03-29] MEDS: CHOLESTYRAMINE 4 GM (QUESTRAN LITE, PREVALITE) PKT PO SCH (10:00)
--- NOTE | 2018-03-29 10:41 | Diagnostic Imaging Report ---
INDICATION: Pneumonia. TECHNIQUE: Two view chest 10:15 AM CORRELATION STUDY: 03/27/2018 FINDINGS: There is again noted rather extensive opacification through the large portion of the right hemithorax. It is likely attributed to pleural effusion and consolidation of the lower lung field. Findings overall appear somewhat less dense and improved from prior study. Left lung stable. Vascular congestion appears to be present. Heart size is mildly enlarged. Right IJ chest and [id number]-I-[id number] catheter with loop in this supraclavicular region at its apex unchanged. Air-fluid level within the stomach. Prior kyphoplasty changes at L1 level. IMPRESSION: 1. Combination of effusion and consolidation in the right lung persisting but may be overall slightly less dense from prior study. 2. There is some degree of vascular congestion suggested. Dictated by: Dictated on workstation # [id number]
[2018-03-29 12:00] VITALS: BP 115/59
--- NOTE | 2018-03-29 12:33 | Progress Note-Hospitalist ---
Subjective HPI/CC On Admission Date Seen by Provider: Mar 29, 2018 Time Seen by Provider: 12:00 73 yo wf well known to me with hx thyroid cA and recent spindle cell sarcoma of right lung, Now with increased weakness and SOA and perhaps increased right pleural effusion. At my interview pt is s/p thoracentesis with 600 cc fluid removed. no real improvement in symptoms. Subjective/Events-last exam Patient looks extremely perky today is feeling much better and would like to go home. White count is increasing however. She is up walking around is on her usual oxygenation. She has had some diarrhea stools yesterday slowed down through the day and has not had one since this morning. C. difficile toxin was indeterminate Review of Systems Pulmonary: Dyspnea (Improved) Gastrointestinal: Diarrhea (Improving) Neurological: Weakness (Improved) Focused Exam Lactate Level 03/27/18 15:05: Lactic Acid Level 1.28 Objective Exam Vital Signs Vital Signs Date Time Temp Pulse Resp B/P (MAP) Pulse Ox O2 Delivery O2 Flow Rate FiO2 03/29/18 12:00 99.3 95 20 115/59 (77) 92 Nasal Cannula 4.00 Capillary Refill : Less Than 3 Seconds General Appearance: No Apparent Distress, WD/WN HEENT: Normal ENT Inspection Neck: Normal Inspection, Non Tender, Supple Respiratory: Lungs Clear, Normal Breath Sounds, No Accessory Muscle Use, No Respiratory Distress, Other (No breath sounds on the right) Cardiovascular: Regular Rate, Rhythm, No Gallop, No JVD, No Murmur Gastrointestinal: No Organomegaly, Non Tender, Soft Rectal: Deferred Back: Normal Inspection Extremity: Normal Capillary Refill, Normal Inspection, Normal Range of Motion, Non Tender Neurologic/Psychiatric: Alert, Oriented x3, No Motor/Sensory Deficits, Normal 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 Imaging: Reviewed Imaging Report Assessment/Plan Assessment and Plan Assess & Plan/Chief Complaint loculated pleural effusion-cultures negative evidence of pneumonic infiltrates- off vancomycin given a dose of prednisone by pulmonology who feels that bronchoscopy is not indicated at this time elevated wbc/leukocytosis-C. difficile pending no etiology for infection, may be secondary to extended GSF infusion thrombocytopenia anemia- chronic dz spindle cell sarcoma lung-on chemo-questionable progression of disease hypoxia weakness Pedal edema increased shortness of breath we'll check an echocardiogram consult pulmonology check a BnP and give Lasix Overall prognosis appears to be improved today-I would entertain discharge with close follow-up if okay with Dr. Quintero Clinical Quality Measures DVT/VTE Risk/Contraindication: Risk Factor Score Per Nursin RFS Level Per Nursing on Admit: 4+=Very High ALEENA GAGE MD Mar 29, 2018 12:33
[2018-03-29] MEDS ORDERED: VANCOMYCIN ORAL 250 MG/5 ML 120 ML PO SCH ×2 (13:09)
--- NOTE | 2018-03-29 13:16 | Discharge Summary-Hospitalist ---
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 difficile toxin negative, pending molecular testing Weakness Discharge Summary Procedures/Consulations dr. Lam Ortega Thoracentesis- therapeutic Discharge Physical Exam Allergies: Coded Allergies: amoxicillin (Unverified Allergy, Unknown, 11/28/17) clavulanic acid (Unverified Allergy, Unknown, 11/28/17) meperidine (Verified Allergy, Unknown, RECEIVED FENTANYL IN SURGERY, ) PT STATES "DEMEROL MAKES ME DIZZY AND TURNS ME ANDERSON" Uncoded Allergies: TAPE (Allergy, Unknown, 01/18/07) Vitals & I&Os Vital Signs Date Time Temp Pulse Resp B/P (MAP) Pulse Ox O2 Delivery O2 Flow Rate FiO2 03/29/18 12:00 99.3 95 20 115/59 (77) 92 Nasal Cannula 4.00 General Appearance: Alert, Oriented X3, Cooperative Respiratory: Other Cardiovascular: Regular Rate, Normal S1, Normal S2 Abdominal: Soft Extremities: No Clubbing, Other (Trace edema) Skin: No Rashes Neuro: Normal Gait, Normal Speech, Strength at 5/5 X4 Ext Psych/Mental Status: Mental Status NL, Mood NL Hospital Course This is a 73-year-old white female who was admitted with increased weakness and hypoxia shortness of breath. Therapeutic thoracentesis was performed with about 600 mL of fluid removed by Dr. Fritz the patient only had minimal relief of symptoms with this and remained very weak and lethargic. Oxygenation was adequate. Dr. Ortega saw the patient consultation and felt like she may have component of reactive airway disease. He started her on ipratropium and steroids. The patient had a remarkable recovery and was feeling much much better at this time. Her white count is increased to 59,[address] Quintero feels like this is secondary to the chemotherapy that she is received recently. Blood cultures been negative. there is been no evidence of any infection even with the leukocytosis. She was originally placed on meropenem and vancomycin until cultures were obtained. Dr. Ortega did not feel like a bronchoscopy would be helpful in elucidating any other etiologies of problems. DR. Quintero feels like the sarcoma is about the same size even though it takes up almost all of her right lung . She did have diarrhea C. difficile toxins were negative molecular testing is pending at this time. Her diarrhea is slowing down . She has received several doses of Questran Light. Because of her need for continued chemotherapy and the risk of C. difficile and pending molecular testing we'll go ahead and discharge her on vancomycin oral dosing. Of note the patient was started on prednisone and in fact this seemed to make the biggest difference in her feeling of well-being and her strength. At another time consideration should be given to getting a serum cortisol level in the morning when she is off the prednisone. Labs (last 24 hrs) Laboratory Tests 03/28/18 14:10: B-Type Natriuretic Peptide 46.4 03/28/18 19:15: Blood Gas Puncture Site LT RAD, Blood Gas Patient Temperature 98.6, Arterial Blood pH 7.40, Arterial Blood Partial Pressure CO2 44, Arterial Blood Partial Pressure O2 256H, Arterial Blood HCO3 27, Arterial Blood Total CO2 28.1, Arterial Blood Oxygen Saturation 101H, Arterial Blood Base Excess 2.3, Sahil Test YES-POS, Blood Gas Ventilator Setting NO, Blood Gas Inspired Oxygen 4L 03/29/18 07:48: B-Type Natriuretic Peptide 46.3, White Blood Count 57.8*H, Red Blood Count 2.94L , Hemoglobin 9.0L, Hematocrit 28L, Mean Corpuscular Volume 96, Mean Corpuscular Hemoglobin 31, Mean Corpuscular Hemoglobin Concent 32, Red Cell Distribution Width 22.0H, Platelet Count 122L, Mean Platelet Volume 9.5, Neutrophils (%) ( Auto) 89H, Lymphocytes (%) (Auto) 6L, Monocytes (%) (Auto) 4, Eosinophils (%) ( Auto) 0, Basophils (%) (Auto) 1, Neutrophils # (Auto) 51.6H, Lymphocytes # (Auto ) 3.5, Monocytes # (Auto) 2.0H, Eosinophils # (Auto) 0.2, Basophils # (Auto) 0.5H, Neutrophils % (Manual) 68, Lymphocytes % (Manual) 7, Monocytes % (Manual) 12, Eosinophils % (Manual) 0, Basophils % (Manual) 0, Myelocytes % 2, Band Neutrophils 11, Polychromasia SLIGHT, Anisocytosis SLIGHT, Sodium Level 138, Potassium Level 3.7, Chloride Level 103, Carbon Dioxide Level 26, Anion Gap 9, Blood Urea Nitrogen 13, Creatinine 1.15, Estimat Glomerular Filtration Rate 46, BUN/Creatinine Ratio 11, Glucose Level 134H, Calcium Level 8.9, Total Bilirubin 0.6, Aspartate Amino Transf (AST/SGOT) 43H, Alanine Aminotransferase (ALT/SGPT) 42, Alkaline Phosphatase 107, Total Protein 5.7L, Albumin 3.5 Microbiology 03/27/18 Blood Culture - Preliminary, Resulted No growth 03/29/18 C. difficile GDH Antigen & Toxins - Final, Complete Patient resulted labs reviewed. Pending Labs Laboratory Tests 03/29/18 07:48: White Blood Count 57.8, Red Blood Count 2.94, Hemoglobin 9.0, Hematocrit 28, Mean Corpuscular Volume 96, Mean Corpuscular Hemoglobin 31, Mean Corpuscular Hemoglobin Concent 32, Red Cell Distribution Width 22.0, Platelet Count 122, Mean Platelet Volume 9.5, Neutrophils (%) (Auto) 89, Lymphocytes (%) (Auto) 6, Monocytes (%) (Auto) 4, Eosinophils (%) (Auto) 0, Basophils (%) (Auto) 1, Neutrophils # (Auto) 51.6, Lymphocytes # (Auto) 3.5, Monocytes # (Auto) 2.0, Eosinophils # (Auto) 0.2, Basophils # (Auto) 0.5, Neutrophils % (Manual) 68, Lymphocytes % (Manual) 7, Monocytes % (Manual) 12, Eosinophils % (Manual) 0, Basophils % (Manual) 0, Myelocytes % 2, Band Neutrophils 11, Polychromasia SLIGHT, Anisocytosis SLIGHT, Sodium Level 138, Potassium Level 3.7, Chloride Level 103, Carbon Dioxide Level 26, Anion Gap 9, Blood Urea Nitrogen 13, Creatinine 1.15, Estimat Glomerular Filtration Rate 46, BUN/Creatinine Ratio 11 , Glucose Level 134, Calcium Level 8.9, Total Bilirubin 0.6, Aspartate Amino Transf (AST/SGOT) 43, Alanine Aminotransferase (ALT/SGPT) 42, Alkaline Phosphatase 107, B-Type Natriuretic Peptide 46.3, Total Protein 5.7, Albumin 3.5 Imaging: Reviewed Imaging Report Discussion & Recommendations Discharge Planning: >30 minutes discharge planning Discharge Home Medications: Active Scripts Active Reported Calcium 600 + Vit D 200 Tablet (Calcium Carbonate/Vitamin D3) 1 Each Tablet 1 Tab PO DAILY Colace (Docusate Sodium) 100 Mg Capsule 100 Mg PO DAILY PRN Imodium A-D (Loperamide HCl) 2 Mg Tablet 2 Mg PO UD PRN Levothyroxine Sodium 137 Mcg Tablet 137 Mcg PO DAILY Ondansetron HCl 8 Mg Tablet 8 Mg PO Q8H PRN Prochlorperazine Maleate 10 Mg Tablet 10 Mg PO Q6H PRN Furosemide 20 Mg Tablet 20 Mg PO DAILY Multivitamins with Minerals (Multivitamin with Minerals) 1 Each Tablet 1 Tab PO DAILY Oxycodone HCl 5 Mg Tablet 5 Mg PO EVERY 4-6 HOURS PRN Super B Complex (Vitamin B Complex & Vit C No.4) 150 Mg Tablet 150 Mg PO DAILY Verapamil ER (Verapamil HCl) 240 Mg Tablet.er 240 Mg PO DAILY Enalapril Maleate 10 Mg Tablet 10 Mg PO DAILY Condition at discharge Stable Instructions to patient/family Please see electronic discharge instructions given to patient. Clinical Quality Measures DVT/VTE Risk/Contraindication: Risk Factor Score Per Nursin RFS Level Per Nursing on Admit: 4+=Very High ALEENA GAGE MD Mar 29, 2018 13:16
[2018-03-29] MEDS ORDERED: VANC125S PO (13:40)
[2018-03-29] MEDS ORDERED: PRD20T PO (13:40)
[2018-03-29 14:15] VITALS: BP 115/59
== END 2018-03-29 14:15 | disposition home or self-care (01) | DRG 187 ==
LOC: EDUNIT# 12:21 → ER 12:23 → 4TH 16:59
PROVIDERS: ADMIT Internal Medicine; ATTEND Internal Medicine
PROC: 0W993ZZ Drainage of Right Pleural Cavity, Percutaneous Approach (ICD-10-PCS; principal; 2018-03-27)
DX: J90 Pleural effusion, not elsewhere classified (principal); C49.3 Malignant neoplasm of connective and soft tissue of thorax; J98.11 Atelectasis; J45.909 Unspecified asthma, uncomplicated; I10 Essential (primary) hypertension; D63.8 Anemia in other chronic diseases classified elsewhere; D69.6 Thrombocytopenia, unspecified; R53.1 Weakness; R60.0 Localized edema; R19.7 Diarrhea, unspecified; Z85.850 Personal history of malignant neoplasm of thyroid
CPT/HCPCS: 32555; 36415; 36600; 71045; 71046; 71275; 80053; 81000; 82805; 83605; 83880; 85007; 85025; 85027; 87040; 87081; 87324; 87449; 87493; 93306; 94640; 94664; 94760; 96365

== ENCOUNTER → 2018-03-27 | Outpatient (CLI) | payer MEDICARE, OTHER ==
[~2018-03-27] MED LIST changes: +IOHEXOL 350 MG/ML 150 ML (OMNIPAQUE 350) VIAL IV ONE; +NS 250 ML (IVPB) BAG IV ONE; +PRD20T PO; +RECEIVED CONTRAST (Hold Metformin) IV SCH; +VANC125S PO
--- NOTE | 2018-03-27 10:41 | Diagnostic Imaging Report ---
INDICATION: Shortness of breath. COMPARISON: 03/14/2018. FINDINGS: Two views of the chest are obtained. Right Port-A-Cath is unchanged. Heart size and pulmonary vasculature appear stable. There continues to be significant opacification two thirds right hemithorax which may be related to a large mass, consolidation or pleural fluid or combination of the above. The overall appearance is fairly similar to the prior study. There is some new minimal blunting of the left costophrenic angle which may be due to a trace effusion. Minimal left basilar atelectasis is also developing. Kyphoplasty change of the lower thoracic vertebral body is unchanged. IMPRESSION: 1. There is some new minimal atelectasis with possible trace effusion at the left lung base minimal. 2. Significant opacification about two thirds of the right hemithorax appears similar to the prior study and may be due to underlying mass, pleural fluid consolidation or combination of the above. Dictated by: Dictated on workstation # [id number]
--- NOTE | 2018-03-27 11:44 | Diagnostic Imaging Report ---
PROCEDURE: CT angiography of the chest with contrast. TECHNIQUE: Multiple contiguous axial images were obtained through the chest after uneventful bolus administration of intravenous contrast. Reconstructed CTA MIP acquisitions were also performed. INDICATION: Shortness of breath and lung carcinoma. COMPARISON: Comparison is made with prior exam from 02/14/2018. FINDINGS: Right chest wall port is in place. Large mass occupying the right chest is again noted, measuring approximately 15.8 cm transverse by 11.7 cm AP compared with 15.3 x 11.5 cm on prior. This is heterogeneous. This does produce some compressive atelectasis in adjacent lung, similar to prior study. There is moderate atelectasis in the right middle lobe and right lower lobe. There is some aeration of the right upper lobe, similar to prior exam. A small amount of pleural fluid on the left has developed since prior CT. No definite thromboemboli have developed within the pulmonary arterial system. The thoracic aorta is normal caliber. No dissection is seen. No pericardial fluid. A right-sided pleural effusion persists. Upper abdomen again demonstrates a mass in the caudate lobe of the liver, stable in appearance. IMPRESSION: Large right chest mass, very similar in size and appearance to the CT study from 02/14/2018. Right-sided pleural effusion is stable. There is continues to be some atelectasis in the right lower lobe and right middle lobe. Right upper lobe is clear. Patient has developed a small left pleural effusion since prior CT. No definite evidence of pulmonary embolism or dissection is seen. Dictated by: Dictated on workstation # [id number]
== END ==
LOC: RAD 09:53
PROVIDERS: ATTEND Internal Medicine Hematology & Oncology
DX: C34.90 Malignant neoplasm of unspecified part of unspecified bronchus or lung (principal); I26.99 Other pulmonary embolism without acute cor pulmonale; Z95.828 Presence of other vascular implants and grafts
CPT/HCPCS: 71046; 71275

== ENCOUNTER 2018-04-04 10:53 | Outpatient (RCR) | payer MEDICARE, OTHER ==
[2018-02-21 14:05] LABS: BASOPHILS # (AUTO) 0.1 10^3/uL (0.0-0.1); BASOPHILS % (AUTO) 0 % (0-10); EOSINOPHILS % (AUTO) 0 % (0-10); HEMATOCRIT 33 % (35-52); HEMOGLOBIN 10.2 G/DL (11.5-16.0); LYMPHOCYTES # (AUTO) 2.3 X 10^3 (1.0-4.0); LYMPHOCYTES % (AUTO) 17 % (12-44); MEAN CORPUSCULAR HEMOGLOBIN 30 PG (25-34); MEAN CORPUSCULAR HGB CONC 31 G/DL (32-36); MEAN CORPUSCULAR VOLUME 95 FL (80-99); MEAN PLATELET VOLUME 8.9 FL (7.4-10.4); MONOCYTES # (AUTO) 0.6 X 10^3 (0.0-1.0); MONOCYTES % (AUTO) 4 % (0-12); NEUTROPHILS # (AUTO) 10.5 X 10^3 (1.8-7.8); NEUTROPHILS % (AUTO) 78 % (42-75); PLATELET COUNT 349 10^3/uL (130-400); RED BLOOD COUNT 3.45 10^6/uL (4.35-5.85); RED CELL DISTRIBUTION WIDTH 22.8 % (10.0-14.5); WHITE BLOOD COUNT 13.4 10^3/uL (4.3-11.0)
[2018-02-21 14:23] LABS: ALANINE AMINOTRANSFERASE 29 U/L (0-55); ALBUMIN 3.8 GM/DL (3.2-4.5); ALKALINE PHOSPHATASE 69 U/L (40-136); BILIRUBIN,TOTAL 0.4 MG/DL (0.1-1.0); BUN/CREATININE RATIO 16; CALCIUM 9.2 MG/DL (8.5-10.1); CARBON DIOXIDE 30 MMOL/L (21-32); CHLORIDE 107 MMOL/L (98-107); CREATININE SERUM 0.77 MG/DL (0.60-1.30); GFR ESTIMATED > 60; GLUCOSE 112 MG/DL (70-105); SODIUM 143 MMOL/L (135-145); TOTAL PROTEIN 6.4 GM/DL (6.4-8.2)
[2018-02-28 14:22] LABS: BASOPHILS % (AUTO) 1 % (0-10); EOSINOPHILS % (AUTO) 0 % (0-10); HEMATOCRIT 31 % (35-52); HEMOGLOBIN 9.9 G/DL (11.5-16.0); LYMPHOCYTES # (AUTO) 1.7 X 10^3 (1.0-4.0); LYMPHOCYTES % (AUTO) 36 % (12-44); MEAN CORPUSCULAR HEMOGLOBIN 29 PG (25-34); MEAN CORPUSCULAR HGB CONC 32 G/DL (32-36); MEAN CORPUSCULAR VOLUME 94 FL (80-99); MEAN PLATELET VOLUME 8.3 FL (7.4-10.4); MONOCYTES # (AUTO) 0.4 X 10^3 (0.0-1.0); MONOCYTES % (AUTO) 9 % (0-12); NEUTROPHILS # (AUTO) 2.5 X 10^3 (1.8-7.8); NEUTROPHILS % (AUTO) 54 % (42-75); PLATELET COUNT 350 10^3/uL (130-400); RED BLOOD COUNT 3.36 10^6/uL (4.35-5.85); RED CELL DISTRIBUTION WIDTH 22.1 % (10.0-14.5); WHITE BLOOD COUNT 4.6 10^3/uL (4.3-11.0)
[2018-02-28 14:40] LABS: BUN/CREATININE RATIO 18; CALCIUM 9.1 MG/DL (8.5-10.1); CARBON DIOXIDE 27 MMOL/L (21-32); CHLORIDE 105 MMOL/L (98-107); CREATININE SERUM 0.82 MG/DL (0.60-1.30); GFR ESTIMATED > 60; GLUCOSE 117 MG/DL (70-105); POTASSIUM 3.9 MMOL/L (3.6-5.0); SODIUM 143 MMOL/L (135-145)
[2018-03-07 09:26] LABS: BASOPHILS # (AUTO) 0.2 10^3/uL (0.0-0.1); BASOPHILS % (AUTO) 1 % (0-10); EOSINOPHILS % (AUTO) 0 % (0-10); HEMATOCRIT 31 % (35-52); LYMPHOCYTES # (AUTO) 2.8 X 10^3 (1.0-4.0); LYMPHOCYTES % (AUTO) 10 % (12-44); MEAN CORPUSCULAR HEMOGLOBIN 30 PG (25-34); MEAN CORPUSCULAR HGB CONC 32 G/DL (32-36); MEAN CORPUSCULAR VOLUME 95 FL (80-99); MEAN PLATELET VOLUME 9.6 FL (7.4-10.4); MONOCYTES # (AUTO) 2.6 X 10^3 (0.0-1.0); MONOCYTES % (AUTO) 9 % (0-12); NEUTROPHILS # (AUTO) 21.6 X 10^3 (1.8-7.8); NEUTROPHILS % (AUTO) 79 % (42-75); PLATELET COUNT 128 10^3/uL (130-400); RED BLOOD COUNT 3.31 10^6/uL (4.35-5.85); RED CELL DISTRIBUTION WIDTH 22.2 % (10.0-14.5); WHITE BLOOD COUNT 27.2 10^3/uL (4.3-11.0)
[2018-03-07 09:51] LABS: CALCIUM 9.5 MG/DL (8.5-10.1); CREATININE SERUM 0.97 MG/DL (0.60-1.30); POTASSIUM 3.9 MMOL/L (3.6-5.0)
[2018-03-14 13:29] LABS: BASOPHILS # (AUTO) 0.1 10^3/uL (0.0-0.1); BASOPHILS % (AUTO) 0 % (0-10); EOSINOPHILS % (AUTO) 0 % (0-10); HEMATOCRIT 31 % (35-52); HEMOGLOBIN 9.7 G/DL (11.5-16.0); LYMPHOCYTES # (AUTO) 2.4 X 10^3 (1.0-4.0); LYMPHOCYTES % (AUTO) 12 % (12-44); MEAN CORPUSCULAR HEMOGLOBIN 30 PG (25-34); MEAN CORPUSCULAR HGB CONC 31 G/DL (32-36); MEAN CORPUSCULAR VOLUME 96 FL (80-99); MEAN PLATELET VOLUME 8.9 FL (7.4-10.4); MONOCYTES # (AUTO) 0.7 X 10^3 (0.0-1.0); MONOCYTES % (AUTO) 4 % (0-12); NEUTROPHILS # (AUTO) 17.3 X 10^3 (1.8-7.8); NEUTROPHILS % (AUTO) 84 % (42-75); PLATELET COUNT 327 10^3/uL (130-400); RED BLOOD COUNT 3.23 10^6/uL (4.35-5.85); RED CELL DISTRIBUTION WIDTH 22.8 % (10.0-14.5); WHITE BLOOD COUNT 20.6 10^3/uL (4.3-11.0)
[2018-03-14 13:51] LABS: ALBUMIN 3.6 GM/DL (3.2-4.5); BILIRUBIN,TOTAL 0.4 MG/DL (0.1-1.0); CALCIUM 8.9 MG/DL (8.5-10.1); CREATININE SERUM 1.01 MG/DL (0.60-1.30); POTASSIUM 3.8 MMOL/L (3.6-5.0); TOTAL PROTEIN 5.9 GM/DL (6.4-8.2)
[2018-03-21 13:34] LABS: BASOPHILS % (AUTO) 1 % (0-10); EOSINOPHILS % (AUTO) 0 % (0-10); HEMATOCRIT 30 % (35-52); HEMOGLOBIN 9.8 G/DL (11.5-16.0); LYMPHOCYTES % (AUTO) 33 % (12-44); MEAN CORPUSCULAR HEMOGLOBIN 31 PG (25-34); MEAN CORPUSCULAR HGB CONC 33 G/DL (32-36); MEAN CORPUSCULAR VOLUME 95 FL (80-99); MEAN PLATELET VOLUME 8.7 FL (7.4-10.4); MONOCYTES # (AUTO) 0.6 X 10^3 (0.0-1.0); MONOCYTES % (AUTO) 9 % (0-12); NEUTROPHILS # (AUTO) 3.3 X 10^3 (1.8-7.8); NEUTROPHILS % (AUTO) 57 % (42-75); PLATELET COUNT 338 10^3/uL (130-400); RED BLOOD COUNT 3.17 10^6/uL (4.35-5.85); RED CELL DISTRIBUTION WIDTH 21.4 % (10.0-14.5); WHITE BLOOD COUNT 5.9 10^3/uL (4.3-11.0)
[2018-03-21 13:49] LABS: BUN/CREATININE RATIO 22; CARBON DIOXIDE 26 MMOL/L (21-32); CHLORIDE 104 MMOL/L (98-107); CREATININE SERUM 0.88 MG/DL (0.60-1.30); GFR ESTIMATED > 60; GLUCOSE 116 MG/DL (70-105); POTASSIUM 4.2 MMOL/L (3.6-5.0); SODIUM 141 MMOL/L (135-145)
[2018-04-01 10:15] LABS: BASOPHILS # (AUTO) 0.8 10^3/uL (0.0-0.1); BASOPHILS % (AUTO) 1 % (0-10); EOSINOPHILS % (AUTO) 0 % (0-10); HEMATOCRIT 27 % (35-52); HEMOGLOBIN 8.3 G/DL (11.5-16.0); LYMPHOCYTES # (AUTO) 3.7 X 10^3 (1.0-4.0); LYMPHOCYTES % (AUTO) 4 % (12-44); MEAN CORPUSCULAR HEMOGLOBIN 31 PG (25-34); MEAN CORPUSCULAR HGB CONC 31 G/DL (32-36); MEAN CORPUSCULAR VOLUME 99 FL (80-99); MONOCYTES # (AUTO) 2.8 X 10^3 (0.0-1.0); MONOCYTES % (AUTO) 3 % (0-12); NEUTROPHILS # (AUTO) 85.9 X 10^3 (1.8-7.8); NEUTROPHILS % (AUTO) 92 % (42-75); PLATELET COUNT 246 10^3/uL (130-400); RED BLOOD COUNT 2.68 10^6/uL (4.35-5.85); RED CELL DISTRIBUTION WIDTH 22.9 % (10.0-14.5)
[2018-04-01 10:16] LABS: WHITE BLOOD COUNT 93.1 10^3/uL (4.3-11.0)
[~2018-04-04] VITALS: Ht 154.9 cm; Wt 89.8 kg
[~2018-04-04 10:53] MED LIST changes: +DOCETAXEL IV SCH; +GEMCITABINE HCL IV SCH; +NORMAL SALINE IV SCH; +NS IV 1000 ML (CANCER CTR) IV SCH; +PALONOSETRON 0.25 MG, DEXAMETHASONE 10 MG/NS 50 ML IVPB IV PRN; +PEGFILGRASTIM 6 MG/0.6ML NEULASTA SC SCH; +PRD20T PO; +VANC125S PO; +[UNRECOGNIZED DRUG - OTHER] IV SCH
[2018-04-04 11:18] LABS: BASOPHILS # (AUTO) 0.5 10^3/uL (0.0-0.1); BASOPHILS % (AUTO) 1 % (0-10); EOSINOPHILS % (AUTO) 0 % (0-10); HEMATOCRIT 28 % (35-52); HEMOGLOBIN 8.8 G/DL (11.5-16.0); LYMPHOCYTES # (AUTO) 3.3 X 10^3 (1.0-4.0); LYMPHOCYTES % (AUTO) 6 % (12-44); MEAN CORPUSCULAR HEMOGLOBIN 31 PG (25-34); MEAN CORPUSCULAR HGB CONC 31 G/DL (32-36); MEAN CORPUSCULAR VOLUME 100 FL (80-99); MEAN PLATELET VOLUME 9.3 FL (7.4-10.4); MONOCYTES # (AUTO) 1.5 X 10^3 (0.0-1.0); MONOCYTES % (AUTO) 3 % (0-12); NEUTROPHILS # (AUTO) 54.3 X 10^3 (1.8-7.8); NEUTROPHILS % (AUTO) 91 % (42-75); PLATELET COUNT 357 10^3/uL (130-400); RED BLOOD COUNT 2.83 10^6/uL (4.35-5.85); RED CELL DISTRIBUTION WIDTH 23.6 % (10.0-14.5)
[2018-04-04 11:20] LABS: WHITE BLOOD COUNT 59.5 10^3/uL (4.3-11.0)
[2018-04-04 11:46] LABS: ALBUMIN 3.9 GM/DL (3.2-4.5); BILIRUBIN,TOTAL 0.6 MG/DL (0.1-1.0); CALCIUM 8.9 MG/DL (8.5-10.1); CREATININE SERUM 1.16 MG/DL (0.60-1.30); POTASSIUM 3.9 MMOL/L (3.6-5.0); TOTAL PROTEIN 6.1 GM/DL (6.4-8.2)
== END 2018-05-22 | disposition home or self-care (01) ==
LOC: ONC 10:53
PROVIDERS: ATTEND Internal Medicine Hematology & Oncology
DX: Z51.11 Encounter for antineoplastic chemotherapy (principal); C49.3 Malignant neoplasm of connective and soft tissue of thorax; C73 Malignant neoplasm of thyroid gland; J90 Pleural effusion, not elsewhere classified; I10 Essential (primary) hypertension; Z79.899 Other long term (current) drug therapy
CPT/HCPCS: 36415; 36591; 80048; 80053; 85025; 96372; 96375; 96413; 96417

== ENCOUNTER → 2018-04-11 | Outpatient (CLI) | payer MEDICARE, OTHER ==
[~2018-04-11] VITALS: Ht 154.9 cm; Wt 93.9 kg
[~2018-04-11] MED LIST changes: -DOCETAXEL IV SCH; -GEMCITABINE HCL IV SCH; +LIDOCAINE 1% INJ 20 ML 20 ML VIAL INJ ONE; +LIDOCAINE 1% INJ 20 ML 20 ML VIAL ONE; -NORMAL SALINE IV SCH; -NS IV 1000 ML (CANCER CTR) IV SCH; -PALONOSETRON 0.25 MG, DEXAMETHASONE 10 MG/NS 50 ML IVPB IV PRN; -PEGFILGRASTIM 6 MG/0.6ML NEULASTA SC SCH; -[UNRECOGNIZED DRUG - OTHER] IV SCH
[2018-04-11 14:27] VITALS: BP 137/89
[2018-04-11 15:15] VITALS: BP 139/90
--- NOTE | 2018-04-11 15:34 | Diagnostic Imaging Report ---
INDICATION: Right pleural effusion, status post thoracentesis. TIME OF EXAM: 3:41 PM Correlation is made with prior study 03/29/2018. FINDINGS: Opacification of large portion of the right hemithorax is again noted consistent with patient's known large right chest mass. Right chest wall port has tip overlying the SVC. No pneumothorax is seen status post thoracentesis. IMPRESSION: No evidence of pneumothorax. Dictated by: Dictated on workstation # [id number]
--- NOTE | 2018-04-11 17:23 | Diagnostic Imaging Report ---
INDICATION: Right pleural effusion. PROCEDURE: Sonographic guidance was provided for Dr. Kelly for right-sided thoracentesis. Ultrasound images demonstrate a large right pleural effusion. Marking was provided. Needle can safely be advanced approximately 7 cm into the pleural fluid. IMPRESSION: Large right pleural effusion. Thoracentesis was performed by Dr. Kelly. Dictated by: Dictated on workstation # [id number]
--- NOTE | 2018-04-11 18:00 | Progress Note-Post Operative ---
Post-Operative Progess Note Surgeon (s)/Strategic Planning Director (s) Surgeon PRINCESS MENSAH DO Strategic Planning Director: none Pre-Operative Diagnosis spindle cell carcinoma thorax, Right pleural effusion, SOB Post-Operative Diagnosis Same Procedure & Operative Findings Date of Procedure 04/11/18 Procedure Performed/Findings thoracentesis Anesthesia Type local lidocaine Estimated Blood Loss Estimated blood loss (mL): scant Specimens/Packing Specimens Removed 700ml pleural fluid PRINCESS MENSAH DO Apr 11, 2018 18:00
--- NOTE | 2018-04-11 21:22 | OPERATIVE REPORT ---
DATE OF SERVICE: PREOPERATIVE DIAGNOSES: 1. Right pleural effusion. 2. Shortness of breath. 3. Right lung cancer. POSTOPERATIVE DIAGNOSES: 1. Right pleural effusion. 2. Shortness of breath. 3. Right lung cancer. PROCEDURE: Thoracentesis with ultrasound guidance. SURGEON: Pantera Kelly DO [facility]: None. ANESTHESIA: Local lidocaine. BLOOD LOSS: Scant. FLUIDS: None. SPECIMEN: 700 mL of pleural fluid. POSTOPERATIVE CONDITION: Stable. INDICATION FOR PROCEDURE: The patient is a 73-year-old female who unfortunately has right lung cancer and is in hospice, but she is having shortness of breath and every time this happens, she has a large pleural effusion. FINDINGS: The patient had a large pleural effusion, had a thoracentesis done and got out 700 mL of serous looking fluid. PROCEDURE NOTE: After informed consent was obtained, the patient was brought to the procedure room in the radiology suite. Ultrasound guidance was used to first find a large pocket, was then marked, then carefully sterilely prepped and draped the skin in a normal fashion. Then used local lidocaine at the spot that was marked, infiltrated with local subcutaneously and then deep down pushing towards the rib, injected along the rib and then back along the tract. Then made a stab incision with a #11 blade and then ultrasound was used to watch the needle advance down through the skin and subcutaneous tissue in between the ribs and then able to push into the pleural cavity using some negative inspiration while we were advancing the large needle trocar. Once we got a good flash of serous fluid, then advanced the catheter and could see the catheter go into this pleural fluid. A picture was taken with ultrasound. Removed the long trocar/needle and then hooked this up to a vacuum suction and got out 700 mL of serous fluid. The patient tolerated the procedure well. Removed the catheter. Dressing placed and the patient was then sent home in stable condition. The sponges and needle count were correct at the end of the case. Job ID: [id number] DocumentID: [id number] Dictated Date: 04/11/2018 18:03:15 Technician Date: 04/11/2018 21:21:40 Dictated By: PANTERA KELLY DO
== END ==
LOC: RAD 13:45
PROVIDERS: ATTEND Surgery
DX: J90 Pleural effusion, not elsewhere classified (principal)
CPT/HCPCS: 32555; 71045

== ENCOUNTER 2018-04-17 05:29 | Outpatient (CLI) | payer MEDICARE, OTHER ==
[~2018-04-17] VITALS: Ht 154.9 cm; Wt 93.9 kg
[~2018-04-17 05:29] MED LIST changes: -LIDOCAINE 1% INJ 20 ML 20 ML VIAL INJ ONE; -LIDOCAINE 1% INJ 20 ML 20 ML VIAL ONE
== END 2018-04-17 10:25 ==
LOC: PREOP 05:29
PROVIDERS: ATTEND Surgery
DX: Z01.818 Encounter for other preprocedural examination (principal); C34.91 Malignant neoplasm of unspecified part of right bronchus or lung; J90 Pleural effusion, not elsewhere classified

== ENCOUNTER 2018-04-18 08:51 | Day surgery (SDC) | payer OTHER, MEDICARE ==
[~2018-04-18] VITALS: Ht 154.9 cm; Wt 93.9 kg
[2018-04-18 09:15] VITALS: BP 177/83
[2018-04-18] MEDS ORDERED: LACTATED RINGERS 1,000 ML IV PRN (09:42)
[2018-04-18] MEDS ORDERED: ceFAZolin 2 GM IV Premixed 50 ML IV ONE (09:45)
--- NOTE | 2018-04-18 10:01 | Progress Note-Pre Operative ---
Pre-Operative Progress Note H&P Reviewed The H&P was reviewed, patient examined and no changes noted. Date Seen by Provider: Apr 18, 2018 Time Seen by Provider: 10:00 Date H&P Reviewed: Apr 18, 2018 Time H&P Reviewed: 10:00 Pre-Operative Diagnosis: right recurrent pleural effusion JEREMIAH VALVERDE DO Apr 18, 2018 10:01
[2018-04-18] MEDS ORDERED: proPOfol 200 MG/20 ML (DIPRIVAN) VIAL IV ONE (10:06)
[2018-04-18] MEDS ORDERED: LIDOCAINE 1% INJ 20 ML 20 ML VIAL ONE (10:29)
--- OUTSIDE RECORDS SUMMARY | 2018-04-18 10:41 | XMS REPORT | Clinical Summary ---
Author Author [facility] Organization [facility] Address Unknown Phone Unavailable Care Team Providers Care Manager Deli Name Role Phone Tad Campbell MD PCP Source Comments Some departments are not documenting in the electronic medical record. If you do not see the information that you expected, contact Release of Information in the Health Information Management department at [phone] for further assistance in locating additional records.[facility] Allergies Active Allergy Reactions Severity Noted [...] Overview: Added automatically from request for surgery [id number] Family History Medical History Relation Name Comments [...] Taken Blood Pressure 142/75 11/17/2017 9:00 AM [facility] Pulse 99 11/16/2017 8:00 PM [facility] Temperature 36.8 C (98.2 F) 11/17/2017 9:00 AM [facility] Respiratory Rate - - Oxygen Saturation 93% 11/17/2017 4:00 PM [facility] Inhaled Oxygen - - Concentration Weight 90.4 kg (199 lb 4.7 oz) 11/14/2017 5:33 PM [facility] Height 154.9 cm (5' 1") 11/09/2017 12:13 AM [facility] Body Mass Index 37.66 11/14/2017 5:33 PM [facility] Plan of Treatment Health Maintenance Due Date [...]
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
--- NOTE | 2018-04-18 11:09 | Progress Note-Post Operative ---
Post-Operative Progess Note Surgeon (s)/Ancillary Services Manager (s) Surgeon JEREMIAH VALVERDE DO Ancillary Services Manager: na Pre-Operative Diagnosis right recurrent pleural effusion Post-Operative Diagnosis same Procedure & Operative Findings Date of Procedure 04/18/18 Procedure Performed/Findings right chest pleur-x catheter placement u/s guided Anesthesia Type local with anesthesia monitoring Estimated Blood Loss Estimated blood loss (mL): min Specimens/Packing Specimens Removed na JEREMIAH VALVERDE DO Apr 18, 2018 11:09
[2018-04-18 11:13] VITALS: BP 147/80
--- NOTE | 2018-04-18 11:13 | Discharge Inst-Simple/Standard ---
Discharge Inst-Standard Discharge Medications New, Converted or Re-Newed RX: RX on Chart Patient Instructions/Follow Up Plan of Care/Instructions/FU: 2 weeks Lam Activity as Tolerated: No Discharge Diet: Regular Diet Other Inst to Patient Follow up Appt: Make appointment for 2 week. Instructions: No lifting greater than 10 pounds. No strenuous activity. May shower in 24 hours, no tub bath or soaking. Use incentive spirometer at home as directed. No Smoking Skin/Wound Care: Change dressing when needed and after draining. Symptoms to Report: Appetite Changes, Extremity Discoloration, Numbness/Tingling, Swelling Increased , Bleeding Excessive, Eyesight Changes, Pain Increased, Urine Color Change, Constipation(Persistent), Fever over 101 degree F, Pain/Pressure in chest, Urinating Difficulty, Cough Up/Vomit Blood, Heart Beat Irreg/Pounding, Pain/ Pressure in jaw, Vaginal Bleeding Increase, Cramps in feet or legs, Lightheadedness, Pain/Pressure in shoulder, Diarrhea(Persistent), Memory Changes Suddenly, Questions/Concerns, Weight gain consecutive days, Dizziness/ Fainting, Nausea/Vomiting, Shortness of Breath, Weight gain over 2 pounds If questions or concerns contact your physician Or seek help at emergency department. JEREMIAH VALVERDE DO Apr 18, 2018 11:12
[2018-04-18] MEDS ORDERED: oxyCODONE/APAP 5/325MG (PERCOCET 5) TABLET ONE (11:24)
[2018-04-18] MEDS ORDERED: oxyCODONE/APAP 5/325MG (PERCOCET 5) TABLET PO ONE (11:30)
--- NOTE | 2018-04-18 11:36 | Diagnostic Imaging Report ---
INDICATION: Pleural effusion. FINDINGS AND IMPRESSION: Sonographic interrogation of the right chest was performed. There is a moderate right-sided pleural effusion. Dictated by: Dictated on workstation # [id number]
--- NOTE | 2018-04-18 11:39 | Diagnostic Imaging Report ---
INDICATION: Post Pleurx catheter placement right chest. TECHNIQUE: Single view chest 11:20 AM. CORRELATION STUDY: 04/11/2018 FINDINGS: A right IJ Vjmklx-J-Cijr catheter is present. There is again loop noted at the apex of the soft tissue of the neck. Tip positioning appearing stable. Heart size and mediastinum are unchanged. There is what appears to be likely combination of effusion and elevated right diaphragm. The catheter tubing projects over the right lower chest. Remaining lung corona with scattered pulmonary parenchymal densities. Probable trace left pleural effusion. IMPRESSION: 1. Interval placement of a catheter over the right lower chest. There is perhaps some less dense appearance about the right lung, there is continued what appears to be likely combination of elevated right diaphragm, effusion and consolidation right lung. No appreciable pneumothorax. Dictated by: Dictated on workstation # [id number]
[2018-04-18 11:45] VITALS: BP 147/72
[2018-04-18 11:50] VITALS: BP 147/72
--- NOTE | 2018-04-18 23:15 | OPERATIVE REPORT ---
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 PROCEDURE: Right chest ultrasound-guided PleurX catheter placement. SURGEON: Jeremiah Fritz DO. ANESTHESIA: Local with anesthesia monitoring. ESTIMATED BLOOD LOSS: Minimal. COMPLICATIONS: None. INDICATIONS: The patient is a 73-year-old female with a recurrent pleural effusion. 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 She is on hospice care. She would like to have a PleurX catheter placed instead of having repeated thoracentesis. She understands risks and benefits of procedure and wished to proceed with procedure. Consent was signed and on the chart. DESCRIPTION OF PROCEDURE: The patient was taken to the operating suite, she was prepped and draped in a sterile fashion. After ultrasound, was able to locate a decent pocket for insertion on the back, lateral aspect on the right. Timeout was performed. Local anesthetic was used to infiltrate the area. The needle catheter was inserted through an incision that was made by an #11 blade scalpel and once straw colored fluid was withdrawn, the catheter was then advanced and the needle was removed. The guidewire was inserted through the sheath and the catheter was removed. The wire was secured. Local anesthetic was used to infiltrate area to the right side and an 11 blade scalpel was used to make a small incision. The PleurX catheter was then tunneled from the lateral aspect to the medial insertion point with the guidewire. Serial dilations were then made over the guidewire with the sheath being left in and the PleurX catheter was then inserted through the sheath and the sheath was then removed. There was little bit of difficulty getting the PleurX catheter through the sheath, but with repositioning on slightly, this was then able to be advanced without difficulty. At this point, the insertion point of the incision was then closed using absorbable suture. The catheter was held in place with 3-0 silk suture. This was then hooked up for drainage and a total of 600 mL of the straw colored fluid was withdrawn. The area was then washed and dried and sterile bandages were applied. The skin Affix was placed over the insertion point of the incision. The patient was taken to the recovery room in stable condition. Chest x-ray pending. Job ID: [id number] DocumentID: [id number] Dictated Date: 04/18/2018 20:35:27 [employer] Date: 04/18/2018 23:14:42 Dictated By: JEREMIAH FRITZ DO
== END 2018-04-18 12:05 | disposition home or self-care (01) ==
LOC: SDC 08:51
PROVIDERS: ATTEND Surgery
DX: J90 Pleural effusion, not elsewhere classified (principal); C49.3 Malignant neoplasm of connective and soft tissue of thorax; I10 Essential (primary) hypertension; Z86.11 Personal history of tuberculosis
CPT/HCPCS: 71045; 76604; 87081